=== PATIENT | male | born 1935 | race Caucasian/White ===

== ENCOUNTER 2016-04-01 18:29 | Inpatient (IN) | payer OTHER ==
[2016-04-01] MEDS ORDERED: SODIUM CHLORIDE 1,000 ML IV STA (19:19)
[2016-04-01 20:30] LABS: BASOPHIL 0.9 % (0-2.0); EOSINOPHIL 4.7 % (0-4.5); MCH 32.1 pg (25.7-33.7); MCHC 32.4 g/dl (32.0-35.9); MEAN CELL VOLUME 98.9 fl (80-96); MEAN PLT VOLUME 8.7 fl (7.5-11.1); NEUTROPHILS 61.2 % (42.8-82.8); PLATELET COUNT 286 K/MM3 (134-434); RDW 18.9 % (11.9-15.9); WHITE BLOOD COUNT 6.9 K/mm3 (4.0-10.0)
[2016-04-01] MEDS ORDERED: metroNIDAZOLE 250 MG TABLET PO ONE (20:56)
[2016-04-01 21:01] LABS: ALBUMIN 2.6 g/dl (3.4-5.0); ALK PHOS 84 U/L (45-117); ANION GAP 11 (8-16); BILIRUBIN,TOTAL 0.2 mg/dL (0.2-1.0); CALCIUM 8.8 mg/dL (8.5-10.1); CO2 17 mmol/L (21-32); CREATININE 0.9 mg/dL (0.7-1.3); GLUCOSE,RANDOM 121 mg/dL (74-106); MAGNESIUM 1.9 mg/dL (1.8-2.4); SGOT/AST 9 U/L (15-37); SGPT/ALT 14 U/L (12-78); TOT PROT 7.9 g/dl (6.4-8.2)
[2016-04-01] MEDS ORDERED: metroNIDAZOLE 250 MG TABLET ONE (21:28)
--- NOTE | 2016-04-02 01:06 | PDOC ---
History of Present Illness - General History Source: Patient, [facility] Exam Limitations: No Limitations - History of Present Illness Initial Comments: 04/02/16 01:49 The patient is an 80 year old male, with a significant past medical history of HTN, hyperlipidemia, diabetes and [place], who presents to the emergency department sent via EMS from [facility] with diarrhea and abdominal pain. Patient is sent for evaluation to rule out C.diff. The patient denies any shortness of breath or chest pain. The patient denies any fever, chills, nausea or vomiting. Allergies: Chlorpromazine HCl Past Surgical History: Umbilical Hernia Repair Social History: Former smoker (quit many years ago). Denies alcohol or drug use. PCP: Dr. Sutherland <Lindsay Krishnan - Last Filed: 04/02/16 01:49> <Stef Rodriguez - Last Filed: 04/02/16 02:59> - General Chief Complaint: Revisit, Lab Variance Stated Complaint: ABNORMAL LABS Time Seen by Provider: 04/01/16 18:57 Past History <Lindsay Krishnan - Last Filed: 04/02/16 01:49> - Past Medical History Anemia: No Asthma: No Cancer: No Cardiac Disorders: Yes ([place]) CVA: No COPD: No CHF: No DVT: No Dementia: No Diabetes: Yes GI Disorders: No Disorders: No HTN: Yes Hypercholesterolemia: Yes Liver Disease: No Seizures: No Thyroid Disease: No - Surgical History Abdominal Surgery: Yes (umbilical hernia) Appendectomy: No Cardiac Surgery: No Cholecystectomy: No Lung Surgery: No Neurologic Surgery: No Orthopedic Surgery: No - Psycho/Social/Smoking Cessation Hx Anxiety: No Suicidal Ideation: No Smoking Status: Yes Smoking History: Former smoker Have you smoked in the past 12 months: No Number of Cigarettes Smoked Daily: 0 If you are a former smoker, when did you quit?: many yrs ago Information on smoking cessation initiated: No Hx Alcohol Use: No Drug/Substance Use Hx: No Substance Use Type: None Hx Substance Use Treatment: No <Stef Rodriguez - Last Filed: 04/02/16 02:59> - Past Medical History Allergies/Adverse Reactions: Allergies Allergy/AdvReac Type Severity Reaction Status Date / Time chlorpromazine HCl Allergy Verified 04/01/16 19:13 [From Thorazine] Home Medications: Ambulatory Orders Acetaminophen [Tylenol] 650 mg PO Q6H PRN 02/10/12 Aspirin [ASA] 81 mg PO DAILY 02/10/12 Clotrimazole [Athlete's Foot] 30 gm TP BID PRN #0 cream..g. 02/14/12 Furosemide [Lasix -] 20 mg PO DAILY #0 tablet 02/14/12 Glipizide [Glucotrol] 5 mg PO BID #0 tablet 02/14/12 Clobetasol Propionate/Emoll [Temovate Emollient 0.05% Crm] 30 gm TP 11/27/12 Review of Systems - Review of Systems Able to Perform ROS?: Yes Comments:: 04/02/16 01:39 CONSTITUTIONAL: No fever, no chills, no fatigue EYES: No visual changes ENT: No ear pain, no sore throat CARDIOVASCULAR: No chest pain, no palpitations RESPIRATORY: No cough, no SOB GI: +Abdominal pain, diarrhea. No nausea, no vomiting, no constipation GENITOURINARY: No dysuria, no frequency, no hematuria MUSKULOSKELETAL: No back pain, no joint pain, no myalgias SKIN: No rash NEURO: No headache <Lindsay Krishnan - Last Filed: 04/02/16 01:49> *Physical Exam - Vital Signs Last Vital Signs Temp Pulse Resp BP Pulse Ox 97.5 F L 64 16 101/60 94 L 04/01/16 19:14 04/02/16 00:05 04/02/16 00:05 04/02/16 00:05 04/02/16 00:05 <Lindsay Krishnan - Last Filed: 04/02/16 01:49> - Vital Signs Last Vital Signs Temp Pulse Resp BP Pulse Ox 97.5 F L 64 16 101/60 94 L 04/01/16 19:14 04/02/16 00:05 04/02/16 00:05 04/02/16 00:05 04/02/16 00:05 - Physical Exam Comments: 04/02/16 02:51 EXAMINATION CONSTITUTIONAL: Awake and alert; frail-appearing, in no apparent distress HEAD: Normocephalic; atraumatic EYES: PERRL; EOM intact; no scleral icterus ENMT: External appears normal; mucous membranes are dry, tongue is coated NECK: Supple; non-tender; no cervical lymphadenopathy CARD: Normal S1, S2; 2/6 se murmurs, no rubs, or gallops RESP: Normal chest excursion with respiration; breath sounds clear and equal bilaterally; no wheezes, rhonchi, or rales ABD: Soft, non-distended; non-tender; no palpable organomegaly, no palpable hernias EXT: Normal ROM in all four extremities; non-tender to palpation; distal pulses intact SKIN: Warm, dry, no rash NEURO: <Stef Rodriguez - Last Filed: 04/02/16 02:59> Heart Score/ECG Review #1 ECG reviewed & interpreted by me at: 19:04 (Vent Rate: 55 bpm. Sinus bradycardia with sinus arrhythmia with occasional premature ventricular complexes. Nonspecific ST and T wave abnormality. ) <Lindsay Krishnan - Last Filed: 04/02/16 01:49> ED Treatment Course - LABORATORY CBC & Chemistry Diagram: 04/01/16 19:21 04/01/16 19:21 - ADDITIONAL ORDERS Additional order review: Laboratory Results 04/01/16 04/01/16 04/01/16 22:41 19:38 19:21 Sodium Potassium Chloride Carbon Dioxide Anion Gap BUN Creatinine Creat Clearance w eGFR Random Glucose Lactic Acid Calcium Magnesium Total Bilirubin AST ALT Alkaline Phosphatase Total Protein Albumin Stool Occult Blood Negative Blood Type A POSITIVE A POSITIVE Antibody Screen Negative 04/01/16 04/01/16 19:21 19:21 Sodium 144 Potassium 4.2 Chloride 116 H D Carbon Dioxide 17 L D Anion Gap 11 BUN 49 H D Creatinine 0.9 Creat Clearance w eGFR > 60 Random Glucose 121 H D Lactic Acid 1.594 Calcium 8.8 Magnesium 1.9 Total Bilirubin 0.2 D AST 9 L D ALT 14 D Alkaline Phosphatase 84 Total Protein 7.9 Albumin 2.6 L Stool Occult Blood Blood Type Antibody Screen 04/01/16 19:21 RBC 3.05 L D MCV 98.9 H MCHC 32.4 RDW 18.9 H D MPV 8.7 Neutrophils % 61.2 Lymphocytes % 22.3 Monocytes % 10.9 H Eosinophils % 4.7 H Basophils % 0.9 - Medications Given in the ED: ED Medications Discontinued Medications Generic Name Dose Route Start Last Admin Trade Name Freq PRN Reason Stop Dose Admin Sodium Chloride 1,000 mls @ 1,000 mls/hr 04/01/16 19:19 04/01/16 20:49 Normal Saline - IV 04/01/16 20:18 1,000 mls/hr ASDIR STA Administration Metronidazole 500 mg 04/01/16 20:56 04/01/16 21:41 Flagyl - PO 04/01/16 20:57 500 mg ONCE ONE Administration <Lindsay Krishnan - Last Filed: 04/02/16 01:49> - LABORATORY CBC & Chemistry Diagram: 04/01/16 19:21 04/01/16 19:21 - ADDITIONAL ORDERS Additional order review: Laboratory Results 04/01/16 04/01/16 04/01/16 22:41 19:38 19:21 Sodium Potassium Chloride Carbon Dioxide Anion Gap BUN Creatinine Creat Clearance w eGFR Random Glucose Lactic Acid Calcium Magnesium Total Bilirubin AST ALT Alkaline Phosphatase Total Protein Albumin Stool Occult Blood Negative Blood Type A POSITIVE A POSITIVE Antibody Screen Negative 04/01/16 04/01/16 19:21 19:21 Sodium 144 Potassium 4.2 Chloride 116 H D Carbon Dioxide 17 L D Anion Gap 11 BUN 49 H D Creatinine 0.9 Creat Clearance w eGFR > 60 Random Glucose 121 H D Lactic Acid 1.594 Calcium 8.8 Magnesium 1.9 Total Bilirubin 0.2 D AST 9 L D ALT 14 D Alkaline Phosphatase 84 Total Protein 7.9 Albumin 2.6 L Stool Occult Blood Blood Type Antibody Screen 04/01/16 19:21 RBC 3.05 L D MCV 98.9 H MCHC 32.4 RDW 18.9 H D MPV 8.7 Neutrophils % 61.2 Lymphocytes % 22.3 Monocytes % 10.9 H Eosinophils % 4.7 H Basophils % 0.9 - RADIOLOGY Radiology Studies Ordered: Category Date Time Status CHEST X-RAY PORTABLE* [RAD] Stat Radiology 04/01/16 20:31 Completed - Medications Given in the ED: ED Medications Discontinued Medications Generic Name Dose Route Start Last Admin Trade Name Freq PRN Reason Stop Dose Admin Sodium Chloride 1,000 mls @ 1,000 mls/hr 04/01/16 19:19 04/01/16 20:49 Normal Saline - IV 04/01/16 20:18 1,000 mls/hr ASDIR STA Administration Metronidazole 500 mg 04/01/16 20:56 04/01/16 21:41 Flagyl - PO 04/01/16 20:57 500 mg ONCE ONE Administration <Stef Rodriguez - Last Filed: 04/02/16 02:59> Medical Decision Making - Medical Decision Making 04/02/16 01:33 EXAM: RAD/CHEST X-RAY PORTABLE Reviewed By: Dr. Clif Gonzalez IMPRESSION: No acute disease. Called Dr. Viral Meza at at 00:17. Referred to answering service, awaiting callback. Dr. Meza returned call at 00:20. Case discussed. <Lindsay Krishnan - Last Filed: 04/02/16 01:49> - Medical Decision Making 04/02/16 02:57 Patient is a frail-appearing 80-year-old male with multiple comorbidities referred from [facility] for intractable diarrhea and dehydration. In the ER, patient is afebrile, frail-appearing, with numerous episodes of foul-smelling nonbloody diarrhea. CBC reveals no evidence of leukocytosis or significant anemia. CMP is remarkable for elevated BUN to creatinine ratio. Stool cultures are been obtained. Patient has been hydrated with normal saline. We'll administer by mouth Flagyl for suspected C. difficile. Will admit for continuous IV hydration to contact isolation. <Stef Rodriguez - Last Filed: 04/02/16 02:59> *DC/Admit/Observation/Transfer - Attestations Scribe Attestion: 04/02/16 01:32 Documentation prepared by Lindsay Krishnan, acting as medical record assistant for Stef Rodriguez MD. <Lindsay Krishnan - Last Filed: 04/02/16 01:49> - Discharge Dispostion Admit: Yes <Stef Rodriguez - Last Filed: 04/02/16 02:59> Diagnosis at time of Disposition: Dehydration Diarrhea Qualifiers: Diarrhea type: unspecified type Qualified Code(s): R19.7 - Diarrhea, unspecified - Referrals
[2016-04-02] MEDS ORDERED: ACETAMINOPHEN 325 MG TABLET (FP) PO PRN (02:30)
[2016-04-02] MEDS: DEXTROSE 5%-0.45% SALINE 1,000 ML IV SCH ×2 (03:14→22:28)
[2016-04-02] MEDS ORDERED: INSULIN SLIDING SCALE (NOVOLOG) 1 VIAL SQ SCH (07:00)
[2016-04-02 07:46] VITALS: BMI 17.5
--- NOTE | 2016-04-02 09:56 | EKG ---
Test Reason : Blood Pressure : / mmHG Vent. Rate : 050 BPM Atrial Rate : 050 BPM P-R Int : 156 ms QRS Dur : 128 ms QT Int : 460 ms P-R-T Axes : -26 013 077 degrees QTc Int : 419 ms SINUS BRADYCARDIA WITH OCCASIONAL PREMATURE VENTRICULAR COMPLEXES NON-SPECIFIC INTRA-VENTRICULAR CONDUCTION BLOCK ABNORMAL ECG WHEN COMPARED WITH ECG OF 01-APR-2016 19:04, NONSPECIFIC T WAVE ABNORMALITY NO LONGER EVIDENT IN LATERAL LEADS Confirmed by ROMERO QUIÑONES, AKIN ([id number]) on 04/02/2016 9:56:18 AM Referred By: MARILY MORELAND Confirmed By:AKIN JASSO MD
--- NOTE | 2016-04-02 10:05 | CON.CARD ---
Consult Consult Specialty:: Cardiology Referred by:: Dr. Meza Reason for Consultation:: Bradycardia - History of Present Illness Chief Complaint: diarrhea History of Present Illness: 80 year old man with a history of HTN, HLD, DM II, CAD reported h/o [place] and prior nuclear stress test here that showed infarct with LVEF 35%, unknown outpatient cardiology follow up, sent from [place] for persistent diarrhea and abdominal pain. Pt was noted to have sinus bradycardia on presentation. Pt. seen and examined today in [facility]. He is only able to provide limited history. He denies having any chest pain, sob, palpitations, lightheadedness, dizziness, syncope, or near syncope. - History Source History Provided By: Patient, Medical Record Limitations to Obtaining History: Poor Historian - Past Medical History Cardio/Vascular: Yes: CAD, CHF, HTN, Hyperlipdemia, [place] Endocrine: Yes: Diabetes Mellitus - Alcohol/Substance Use Hx Alcohol Use: No - Smoking History Smoking history: Former smoker Have you smoked in the past 12 months: No Aproximately how many cigarettes per day: 0 If you are a former smoker, when did you quit?: many yrs ago - Social History Usual Living Arrangement: Alf ADL: Support Services History of Recent Travel: No Home Medications - Allergies Allergies/Adverse Reactions: Allergies Allergy/AdvReac Type Severity Reaction Status Date / Time chlorpromazine HCl Allergy Verified 04/01/16 19:13 [From Thorazine] - Home Medications Home Medications: Ambulatory Orders Aa/Hydrolyzed Collagen, Whey [Lps Neutral Flavor Liquid] 15 grams PO BID Acetaminophen [Tylenol] 325 mg PO Q6H PRN 04/02/16 Ascorbate Calcium [Vitamin C] 500 mg PO TID 04/02/16 Aspirin [ASA -] 81 mg PO BID 04/02/16 Cyanocobalamin (Vitamin B-12) [B-12] 1,000 mcg PO DAILY 04/02/16 Docusate Sodium [Colace -] 100 mg PO DAILY PRN 04/02/16 Folic Acid 1 mg PO DAILY 04/02/16 Guaifenesin 200 mg PO Q4H PRN 04/02/16 Insulin Regular, Human [Humulin R U-500 Kwikpen] 100 units SQ ASDIR 04/02/16 Iron 325 mg PO TID 04/02/16 Menthol/Zinc Oxide [Calmoseptine Ointment] 0 gm TP DAILY 04/02/16 Metoprolol Succinate [Toprol Xl] 25 mg PO DAILY 04/02/16 Multivitamins [Tab-A-Vit -] 1 tab PO DAILY 04/02/16 Oseltamivir Phosphate [Tamiflu] 75 mg PO DAILY 04/02/16 Polyethylene Glycol 3350 [Miralax 119 gm Btl -] 17 grams PO DAILY PRN 04/02/16 Tamsulosin HCl [Flomax] 0.4 mg PO DAILY 04/02/16 Family Disease History - Family Disease History Family History: Unable to Obtain Review of Systems - Review of Systems Constitutional: reports: Malaise, Weakness. denies: No Symptoms, Chills, Diaphoresis, Fever, Lethargy, Loss of Appetite, Night Sweats, Unintentional Wgt. Loss, Other Eyes: denies: No Symptoms, Blind Spots, Blurred Vision, Double Vision, Eye Pain , Floaters, Photophobia, Recent Change in Vision, Other HENT: denies: No Symptoms, Difficult Swallowing, Ear Discharge, Ear Pain, Epistaxis, Gingival Bleeding, Hearing Loss, Mouth Swelling, Nasal Congestion, Ocular Prosthesis, Throat Pain, Toothache, Ringing in Ears, Other Neck: denies: No Symptoms, Decreased ROM, Lumps, Pain on Movement, Stiffness, Swollen Glands, Tenderness, Other Cardiovascular: denies: No Symptoms, Chest Pain, Edema, Palpitations, Shortness of Breath, Other Respiratory: denies: No Symptoms, Cough, Exercise Intolerance, Hemoptysis, Orthopnea, PND, Snoring, SOB, SOB on Exertion, Wheezing, Other Gastrointestinal: reports: Abdominal Pain, Diarrhea. denies: No Symptoms, Bloating, Constipation, Dysphagia, Indigestion, Melena, Nausea, Rectal Bleeding , Vomiting, Vomiting Blood, Other Genitourinary: denies: No Symptoms, Burning, Discharge, Dysuria, Flank Pain, Frequency, Hematuria, Incontinence, Lesions, Menses, Pain, Testicular Mass, Testicular Pain, Testicular Swelling, Urgency, Vaginal Bleeding, Other Breasts: denies: No Symptoms Reported, See HPI, Breast Implants, Discharge from Nipple, Lumps, Pain, Skin Changes, Other Musculoskeletal: denies: No Symptoms, Back Pain, Crepitus, Decreased ROM, Extremity Pain, Joint Pain, Joint Swelling, Muscle Pain, Muscle Cramps, Muscle Weakness, Other Integumentary: denies: No Symptoms, Blister, Bruising, Change in Color, Eczema, Erythema, Incision, Lesions, Lump, Pallor, Pruritis, Rash, Wound, Other Neurological: denies: No Symptoms, Change in LOC, Change in Speech, Confusion, Dizziness, Headache, Incoordination, Numbness, Parasthesia, Pre-Existing Deficit , Seizure, Syncope, Tremors, Unsteady Gait, Weakness, Other Endocrine: denies: No Symptoms, Excessive Sweating, Flushing, Increased Hunger, Increased Thirst, Intolerance to Cold, Intolerance to Heat, Unexplained Weight Gain, Unexplained Weight Loss, Other Hematology/Lymphatic: denies: No Symptoms, Easily Bruised, Excessive Bleeding, Swollen Glands, Other Psychiatric: denies: No Symptoms, Altered Sleep Pattern, Anxiety, Depression, Hallucinations, Panic, Paranoia, Suicidal, Other - Risk Factors Known Risk Factors: Yes: Age, Diabetes Mellitus, Hypercholesterolemia, Hypertension Vital Signs: Vital Signs Temperature 96 F L 04/02/16 08:39 Pulse Rate 45 L 04/02/16 08:39 Respiratory Rate 18 04/02/16 08:39 Blood Pressure 125/62 04/02/16 08:39 O2 Sat by Pulse Oximetry (%) 96 04/02/16 06:00 Constitutional: Yes: Well Nourished, No Distress, Calm Eyes: Yes: WNL, Conjunctiva Clear, EOM Intact HENT: Yes: WNL, Atraumatic, Normocephalic Neck: Yes: WNL, Supple, Trachea Midline Respiratory: Yes: Regular, Diminished. No: Rales, Rhonchi, Wheezes Gastrointestinal: Yes: Normal Bowel Sounds, Soft. No: Distention, Tenderness Renal/: Yes: WNL Cardiovascular: Yes: Bradycardia. No: Regular Rate and Rhythm, Tachycardia, Pulse Irregular, Gallop, Rub, Varicosities JVD: No Carotid Bruit: No PMI: Non-Displaced Heart Sounds: Yes: S1, S2. No: Split S2, S3, S4, Clicks, Gallop, Rub, Bruit Murmur: No: Systolic Murmur, Diastolic Murmur Musculoskeletal: Yes: Muscle Weakness Extremities: Yes: WNL Edema: No Peripheral Pulses WNL: Yes Peripheral Pulses: 2+ Left Doralis Pedis, 2+ Right Dorsalis Pedis Integumentary: Yes: WNL Neurological: Yes: Alert Psychiatric: Yes: Alert - Other Data Labs, Other Data: Laboratory Tests 04/01/16 04/01/16 04/01/16 19:21 19:21 19:21 WBC 6.9 Hgb 9.8 L D Hct 30.1 L D Plt Count 286 Sodium 144 Potassium 4.2 Chloride 116 H D Carbon Dioxide 17 L D BUN 49 H D Creatinine 0.9 Random Glucose 121 H D Lactic Acid 1.594 Calcium 8.8 Magnesium 1.9 Total Bilirubin 0.2 D AST 9 L D ALT 14 D Alkaline Phosphatase 84 Total Protein 7.9 Albumin 2.6 L ekg 1-sinus bradycardia 55bpm, pvcs, IVCD, NSST, sinus arrhythmia ekg 2-sinus bradycardia 50bpm, IVCD, PVCs Imaging - Results Chest X-ray: Report Reviewed, Image Reviewed EKG: Report Reviewed, Image Reviewed Other: Report Reviewed, Image Reviewed Problem List - Problems (1) Dehydration Code(s): E86.0 - DEHYDRATION (2) Diarrhea Code(s): R19.7 - DIARRHEA, UNSPECIFIED Qualifiers: Diarrhea type: unspecified type Qualified Code(s): R19.7 - Diarrhea, unspecified (3) Bradycardia Code(s): R00.1 - BRADYCARDIA, UNSPECIFIED (4) CAD (coronary artery disease) Code(s): I25.10 - ATHSCL HEART DISEASE OF [place] CORONARY ARTERY W/O ANG PCTRS (5) Myocardial infarct, old Code(s): I25.2 - OLD MYOCARDIAL INFARCTION (6) Ischemic cardiomyopathy Code(s): I25.5 - ISCHEMIC CARDIOMYOPATHY (7) Chronic systolic CHF (congestive heart failure) Code(s): I50.22 - CHRONIC SYSTOLIC (CONGESTIVE) HEART FAILURE (8) HTN (hypertension) Code(s): I10 - ESSENTIAL (PRIMARY) HYPERTENSION (9) HLD (hyperlipidemia) Code(s): E78.5 - HYPERLIPIDEMIA, UNSPECIFIED (10) Diabetes mellitus type 2 in nonobese Code(s): E11.9 - TYPE 2 DIABETES MELLITUS WITHOUT COMPLICATIONS Assessment/Plan 80 year old man with a history of HTN, HLD, DM II, CAD reported h/o [place] and prior nuclear stress test here that showed infarct with LVEF 35%, unknown outpatient cardiology follow up, sent from [place] for persistent diarrhea and abdominal pain. Pt was noted to have sinus bradycardia on presentation. He denies having any chest pain, sob, palpitations, lightheadedness, dizziness, syncope, or near syncope. 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
--- NOTE | 2016-04-02 10:08 | EKG ---
Test Reason : Blood Pressure : / mmHG Vent. Rate : 055 BPM Atrial Rate : 055 BPM P-R Int : 156 ms QRS Dur : 116 ms QT Int : 438 ms P-R-T Axes : 077 009 101 degrees QTc Int : 419 ms SINUS BRADYCARDIA WITH SINUS ARRHYTHMIA WITH OCCASIONAL PREMATURE VENTRICULAR COMPLEXES NONSPECIFIC ST AND T WAVE ABNORMALITY ABNORMAL ECG Confirmed by AKIN JASSO MD ([id number]) on 04/02/2016 10:08:18 AM Referred By: Confirmed By:AKIN JASSO MD
--- NOTE | 2016-04-02 10:35 | PN ---
Progress Note (short form) - Note Progress Note: ID consult dictated 80 year old man admitted from [place] with diarrhea- reports last several days no vomiting no abdominal pain no fever small volume foul smelling C diff antigen positive- would start po flagyl continue iv hydration would f/u stool studies sent also norovirus eosinophilia- screen stools for ova and parasites cachexia with anemia- r/o malignancy check tsh consider ct abd/pelvis -await speech eval to see if he can drink po contrast Problem List - Problems (1) Diarrhea Code(s): R19.7 - DIARRHEA, UNSPECIFIED Qualifiers: Diarrhea type: unspecified type Qualified Code(s): R19.7 - Diarrhea, unspecified (2) Anemia Code(s): D64.9 - ANEMIA, UNSPECIFIED
--- NOTE | 2016-04-02 10:38 | CONSULT ---
Admitting History and Physical - Primary Care Physician PCP: Viral Meza - Admission History of Present Illness: Per EMR: "History of Present Illness Initial Comments: 04/02/16 01:49 The patient is an 80 year old male, with a significant past medical history of HTN, hyperlipidemia, diabetes and [place], who presents to the emergency department sent via EMS from [facility] with diarrhea and abdominal pain. Patient is sent for evaluation to rule out C.diff. The patient denies any shortness of breath or chest pain. The patient denies any fever, chills, nausea or vomiting. Allergies: Chlorpromazine HCl Past Surgical History: Umbilical Hernia Repair Social History: Former smoker (quit many years ago). Denies alcohol or drug use. " Per nursing, swallowing evaluation placed for weight loss. Pt denies dysphagia or weight loss but reports admission "to assess my digestive tract." He reports that he is on a chopped diet because he can't wear his dentures. History Source: Patient, Medical Record Limitations to Obtaining History: No Limitations (Slow to respond but o x 3 and appropriate) - Past Medical History Cardiovascular: Yes: CAD, CHF, HTN, Hyperlipdemia, [place] Endocrine: Yes: Diabetes Mellitus - Advance Directives Advance Directives: Yes: Health Care Proxy - Smoking History Smoking history: Former smoker Have you smoked in the past 12 months: No Aproximately how many cigarettes per day: 0 If you are a former smoker, when did you quit?: many yrs ago - Alcohol/Substance Use Hx Alcohol Use: No - Social History ADL: Support Services History of Recent Travel: No History - Admission Reason For Visit: DIARRHEA DEHYDRATION - Diagnostics X-ray: Report Reviewed - General Mental Status: Alert and Oriented, Awake and Alert, Able to Follow Commands Attention: Intact (limited eye contact.) Ability to Follow Directions: Good Head/Neck Control: Fair - Hearing Hearing: Functional Hearing: Impaired Hearing Aide: No With Patient: No Speech Evaluation - Communication Primary Language: ALB[place] Communication: Yes: Within Normal Limits - Speech Production Able to Make Needs Known: Yes: WNL Intelligibility: Yes: WNL - Speech Characteristics Voice Loudness: Normal Voice Pitch: Yes: Normal Voice Phonatory-based Quality: Yes: Normal Speech Clarity: < 100% Nasal Resonance: Normal Articulation: Yes: Precise Rate of Speech: Intact (slow to respond but accurate) - Language/Verbal Expression Able to Respond to Simple Queries: Yes: WNL Able to Communicate Wants and Needs: Yes: WNL Functional Communication Status: Yes: WNL - Memory/Perception 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 Memory: Yes: WNL Short Term Memory: Yes: WNL - Swallow Evaluation/Bedside Assessment Current Nutritional Intake: NPO Oral Secretions: Yes: WFL Dentition: Yes: Edentulous Facial Symmetry at Rest: Symmetrical Facial Symmetry on Retraction: Symmetrical Facial Movement: Controlled Sensation: Normal Against Resistance Opening: Normal Against Resistance Closing: Normal Pucker Lips: Normal Smile: Normal Lingual Movement: Normal Lingual Speed of Movement: Normal Lingual Movement Strgth Against Opposition: Normal Lingual Movement Characteristics: Normal Velopharyngeal Movement: Normal Laryngeal Movement: Able to Palpate, Labored,delay initiation, Reduced Velocity Labial Seal: WFL Chewing: Impaired (unable to masticate small piece of cracker in applesauce.) Oral Prep Time: Increased A-P Transit: Impaired Timing of Swallow: Delayed Coughing/Throat Clear: No Change in Voice: No Recommendations - Speech Evaluation, Impression/Plan Impression: a x o. Slow to respond but good historian. Denies weight loss. Feels the scale is wrong. Swallow mildly delayed but functional. - Dysphagia Impressions/Plan Dysphagia Impressions: Mild Impairment, Ongoing Evaluation Recommendations: Other (RD/menu selection) - Recommendations Diet Consistency: Dysphagia Minced, 1 - 2 Soft Items (wants eggs, park.) Medication Administration: Whole with water Liquids: Thin Liquids
--- NOTE | 2016-04-02 11:30 | CONS ---
DATE OF CONSULTATION: REQUESTING PHYSICIAN: Viral Meza MD HISTORY: This is an 80-year-old man with past medical history of hypertension, hyperlipidemia, diabetes, coronary artery disease who was sent from the half-way with diarrhea, which he reports over the last several days. He denies any abdominal pain. He has no fever or chills. He has no other complaints. He has no vomiting. PAST MEDICAL HISTORY: Notable for history of hypertension, hyperlipidemia, diabetes, abdominal aortic aneurysm, thyroid disease, coronary artery disease, and dementia. PAST SURGICAL HISTORY: Notable for umbilical hernia repair. ALLERGIES: CHLORPROMAZINE. MEDICATIONS: At the half-way include Tylenol, aspirin, insulin, Flomax, MiraLAX, which has been on hold, Tamiflu, which has been prophylaxis for 2 weeks, Toprol XL, iron, folic acid, Colace, B12, aspirin, and protein supplement. FAMILY HISTORY: Not available. SOCIAL HISTORY: He is a half-way resident. He is a former smoker. There is no history of any substance use. REVIEW OF SYSTEMS: Notable for diarrhea. He denies abdominal pain, chest pain, nausea, or vomiting. PHYSICAL EXAMINATION: General: He is a weak-appearing man in no acute distress. Vital Signs: His temperature is 96, pulse 45, blood pressure 125/62, respiratory rate 18. HEENT: He is normocephalic. His eyes are anicteric. He has dry oral mucosa. Lungs: Clear to auscultation. Heart: Regular rate and rhythm. He is bradycardic. Abdomen: Soft. He has good bowel sounds. He has no rebound or guarding. Extremities: Without edema. White count is 6.9, hemoglobin 9.8, platelets 286, INR 1. He has 4.7% eosinophils. His BUN 49, creatinine 0.9. LFTs are normal. His albumin is 2.6. His urinalysis is not done. Stool occult blood is negative. Chest x-ray report is normal. There is no acute disease. In summary, this is a cachectic 80-year-old man with diarrhea. He also has anemia. He is Clostridium difficile antigen positive. In this setting, I would suggest we treat him for Clostridium difficile and start oral Flagyl. Would continue hydration. Would screen him for Norovirus. Would agree with ova and parasite studies as well given his eosinophilia. Blood cultures have been sent given the fact that he is hypothermic. There is a remote history of thyroid disease and he is not on any thyroid medication, so it would be reasonable to check his thyroid status as well. Overall with his low albumin and the fact that he is 6 feet 2 inches and only weighs 136 pounds and anemia, concerns should also be raised for possible malignancy. ELAINE RAY M.D. LUZMA/[id number]
[2016-04-02] MEDS: TAMSULOSIN HCL 0.4 MG CAP.ER.24H (FP) PO SCH (11:57)
[2016-04-02] MEDS: ASPIRIN 81 MG CHEWABLE TABLETS PO SCH (11:57)
[2016-04-02] MEDS: metroNIDAZOLE 250 MG TABLET PO SCH ×3 (11:57→22:29)
--- NOTE | 2016-04-02 13:35 | HP ---
Admitting History and Physical - Admission History of Present Illness: 80 y/o [place] of profuse diarrhea he had dry mucous membranes and low bp's no fever, lactic acid level is low - Past Medical History Cardiovascular: Yes: CAD, CHF, HTN, Hyperlipdemia, [place] Endocrine: Yes: Diabetes Mellitus - Advance Directives Advance Directives: Yes: Health Care Proxy - Smoking History Smoking history: Former smoker Have you smoked in the past 12 months: No Aproximately how many cigarettes per day: 0 If you are a former smoker, when did you quit?: many yrs ago - Alcohol/Substance Use Hx Alcohol Use: No - Social History ADL: Support Services History of Recent Travel: No Home Medications - Allergies Allergies/Adverse Reactions: Allergies Allergy/AdvReac Type Severity Reaction Status Date / Time chlorpromazine HCl Allergy Verified 04/01/16 19:13 [From Thorazine] - Home Medications Home Medications: Ambulatory Orders Aa/Hydrolyzed Collagen, Whey [Lps Neutral Flavor Liquid] 15 grams PO BID Acetaminophen [Tylenol] 325 mg PO Q6H PRN 04/02/16 Ascorbate Calcium [Vitamin C] 500 mg PO TID 04/02/16 Aspirin [ASA -] 81 mg PO BID 04/02/16 Cyanocobalamin (Vitamin B-12) [B-12] 1,000 mcg PO DAILY 04/02/16 Docusate Sodium [Colace -] 100 mg PO DAILY PRN 04/02/16 Folic Acid 1 mg PO DAILY 04/02/16 Guaifenesin 200 mg PO Q4H PRN 04/02/16 Insulin Regular, Human [Humulin R U-500 Kwikpen] 100 units SQ ASDIR 04/02/16 Iron 325 mg PO TID 04/02/16 Menthol/Zinc Oxide [Calmoseptine Ointment] 0 gm TP DAILY 04/02/16 Metoprolol Succinate [Toprol Xl] 25 mg PO DAILY 04/02/16 Multivitamins [Tab-A-Vit -] 1 tab PO DAILY 04/02/16 Oseltamivir Phosphate [Tamiflu] 75 mg PO DAILY 04/02/16 Polyethylene Glycol 3350 [Miralax 119 gm Btl -] 17 grams PO DAILY PRN 04/02/16 Tamsulosin HCl [Flomax] 0.4 mg PO DAILY 04/02/16 Physical Examination Vital Signs: Vital Signs Temperature 96 F L 04/02/16 08:39 Pulse Rate 45 L 04/02/16 08:39 Respiratory Rate 18 04/02/16 08:39 Blood Pressure 125/62 04/02/16 08:39 O2 Sat by Pulse Oximetry (%) 96 04/02/16 06:00 Constitutional: Yes: Cachectic Eyes: Yes: WNL, Conjunctiva Clear, EOM Intact HENT: Yes: WNL, Atraumatic, Normocephalic Neck: Yes: WNL, Supple, Trachea Midline Cardiovascular: Yes: WNL, Regular Rate and Rhythm Respiratory: Yes: WNL, Regular, CTA Bilaterally Gastrointestinal: Yes: WNL, Normal Bowel Sounds ...Rectal Exam: Yes: Deferred Breast(s): Yes: WNL Edema: RLE: 1+ Peripheral Pulses WNL: Yes Integumentary: Yes: Venous Stasis Changes Neurological: Yes: Alert, Oriented Assessment/Plan diarrhea r/o c diff hypotension initially being resuscitated with ivf prerenal azotemia continue ivf id consult speech eval for the appropriate diet consistency obtain labs for electrolyte monitoring
[2016-04-02] MEDS ORDERED: SODIUM CHLORIDE 500 ML IV ONE (15:45)
[2016-04-03] MEDS: metroNIDAZOLE 250 MG TABLET PO SCH ×3 (06:53→21:38)
[2016-04-03 08:28] LABS: MCH 32.7 pg (25.7-33.7); MCHC 33.2 g/dl (32.0-35.9); MEAN CELL VOLUME 98.5 fl (80-96); MEAN PLT VOLUME 8.2 fl (7.5-11.1); PLATELET COUNT 214 K/MM3 (134-434); RDW 18.9 % (11.9-15.9); WHITE BLOOD COUNT 4.7 K/mm3 (4.0-10.0)
[2016-04-03 08:57] LABS: ALBUMIN 2.2 g/dl (3.4-5.0); ANION GAP 10 (8-16); BILIRUBIN,TOTAL 0.3 mg/dL (0.2-1.0); CALCIUM 8.4 mg/dL (8.5-10.1); CO2 15 mmol/L (21-32); CREATININE 0.7 mg/dL (0.7-1.3); GLUCOSE,RANDOM 101 mg/dL (74-106); SGOT/AST 6 U/L (15-37); SGPT/ALT 9 U/L (12-78)
[2016-04-03 08:58] LABS: ALK PHOS 69 U/L (45-117); TOT PROT 6.7 g/dl (6.4-8.2)
[2016-04-03] MEDS: ASPIRIN 81 MG CHEWABLE TABLETS PO SCH (09:09)
[2016-04-03] MEDS: TAMSULOSIN HCL 0.4 MG CAP.ER.24H (FP) PO SCH (09:09)
--- NOTE | 2016-04-03 09:10 | PN ---
Progress Note, Physician Chief Complaint: resting comfortably Denies chest pain, dizziness Holter in progress - Current Medication List Current Medications: Active Medications Acetaminophen (Tylenol -) 325 mg PO Q6H PRN PRN Reason: FEVER OR PAIN Aspirin (Asa -) 81 mg PO DAILY [facility] Last Admin: 04/03/16 09:09 Dose: 81 mg Dextrose/Sodium Chloride (D5-1/2ns -) 1,000 mls @ 100 mls/hr IV ASDIR [facility] Last Admin: 04/02/16 22:28 Dose: 100 mls/hr Insulin Aspart (Novolog Vial Sliding Scale -) 1 vial SQ ACHS [facility] Metronidazole (Flagyl -) 500 mg PO TID [facility] Last Admin: 04/03/16 06:53 Dose: 500 mg Tamsulosin HCl (Flomax -) 0.4 mg PO DAILY@0830 [facility] Last Admin: 04/03/16 09:09 Dose: 0.4 mg - Objective Vital Signs: Vital Signs Temperature 97.5 F L 04/03/16 06:00 Pulse Rate 51 L 04/03/16 06:00 Respiratory Rate 20 04/03/16 06:00 Blood Pressure 110/65 04/03/16 06:00 O2 Sat by Pulse Oximetry (%) 96 04/02/16 21:00 Constitutional: Yes: Calm Cardiovascular: Yes: Regular Rate and Rhythm Respiratory: Yes: Other (clear anteriorly without wheezing or rales) Edema: No Labs: CBC, BMP 04/03/16 08:10 Laboratory Tests 04/03/16 04/03/16 08:10 08:10 WBC 4.7 D Hgb 8.6 L D Plt Count 214 D Creatinine Pending Assessment/Plan Assessment/Plan 80 year old man with a history of HTN, HLD, DM II, CAD reported h/o [place] and prior 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 Pt was noted to have sinus bradycardia on presentation. He denies having any chest pain, sob, palpitations, lightheadedness, dizziness, syncope, or near syncope. 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
[2016-04-03] MEDS: DEXTROSE 5%-0.45% SALINE 1,000 ML IV SCH (12:32)
[2016-04-03 13:36] LABS: THYROID STIMULATING HORMONE 2.16 uIU/ml (0.358-3.74)
--- NOTE | 2016-04-03 14:05 | PN ---
Progress Note (short form) - Note Progress Note: speech eval ID and Cardiol f/u appreciated BMs less liquid "pasty" second BM so far today normal anion gap met acidosis 2/2 gi bicarb losses bradycardia may be 2/2 long acting metoprolol [place] was on in [place] will wait and see if HR picks up with time anemia noted may be dilutional normocytic with high RDW suggestive of different populations of RBCs will order anemia w/u Current Medications Acetaminophen (Tylenol -) 325 mg PO Q6H PRN PRN Reason: FEVER OR PAIN Aspirin (Asa -) 81 mg PO DAILY [facility] Last Admin: 04/03/16 09:09 Dose: 81 mg Dextrose/Sodium Chloride (D5-1/2ns -) 1,000 mls @ 100 mls/hr IV ASDIR [facility] Last Admin: 04/03/16 12:32 Dose: 100 mls/hr Insulin Aspart (Novolog Vial Sliding Scale -) 1 vial SQ ACHS [facility] Metronidazole (Flagyl -) 500 mg PO TID [facility] Last Admin: 04/03/16 13:24 Dose: 500 mg Tamsulosin HCl (Flomax -) 0.4 mg PO DAILY@0830 [facility] Last Admin: 04/03/16 09:09 Dose: 0.4 mg Last Vital Signs Temp Pulse Resp BP Pulse Ox 97.4 F L 61 17 110/58 96 04/03/16 13:24 04/03/16 13:24 04/03/16 13:24 04/03/16 10:00 04/02/16 21:00 CBC, BMP 04/03/16 08:10 04/03/16 08:10
[2016-04-04] MEDS: DEXTROSE 5%-0.45% SALINE 1,000 ML IV SCH ×2 (02:03→19:35)
[2016-04-04] MEDS: metroNIDAZOLE 250 MG TABLET PO SCH ×3 (06:03→21:10)
--- NOTE | 2016-04-04 09:29 | HOL ---
Hook-up date: 2016-04-02 11:25:00 Duration: 22:59:00 Test Indications: BRADYCARDIA Medications: 16155 QRS complexes 6336 Ventricular ectopics which represent 8 % of total QRS comp. 95 Supraventricular ectopics which represent <1 % of total QRS comp. * Paced QRS complexs which represent % of total QRS comp. 2 % of Time Classified as Noise VENTRICULAR ECTOPY 6041 Isolated 1449 Bigeminal Cycles 129 Couplets 8 Runs 26 Beats in Runs 5 Beats LONGEST at 78 BPM at 06:26:44 2016-04-03 3 Beats FASTEST at 123 BPM at 18:36:51 2016-04-02 SUPRAVENTRICULAR ECTOPY 88 Isolated 3 Couplets 0 Runs 0 Beats in Runs * Beats LONGEST at * BPM at :: -- * Beats FASTEST at * BPM at :: -- HEART RATES 39 MIN at 14:45:22 2016-04-02 52 AVG 88 MAX at 20:16:03 2016-04-02 LONGEST RR 1.944 secs at 06:09:14 2016-04-03 The underlying rhtyhm was sinus bradycardia with an average rate of 52bpm. The minumum rate was 39bpm and the maxiumum 88bpm. There were no pauses > 3 seconds. Frequent VPCs, occasional couplets and short periods of ventricular bigeminy. Rare APCS, some with aberrant conduction. No diary entries. Confirmed by AKIN JASSO MD ([id number]) on 04/04/2016 9:28:22 AM Referred By: Eunice MORELAND Overread By: AKIN JASSO MD
[2016-04-04] MEDS: TAMSULOSIN HCL 0.4 MG CAP.ER.24H (FP) PO SCH (09:39)
[2016-04-04] MEDS: ASPIRIN 81 MG CHEWABLE TABLETS PO SCH (09:39)
--- NOTE | 2016-04-04 09:58 | PN ---
Progress Note, Physician Chief Complaint: alert and wants to go home Holter: Sinus tashia, rare APCs with aberrancy. Frequent VPCs, occasional V couplets and rare periods Ventricular bigeminy No pauses > 3 seconds. Pauses post VPC < 2 seconds (compensatory) - Current Medication List Current Medications: Active Medications Acetaminophen (Tylenol -) 325 mg PO Q6H PRN PRN Reason: FEVER OR PAIN Aspirin (Asa -) 81 mg PO DAILY [facility] Last Admin: 04/04/16 09:39 Dose: 81 mg Dextrose/Sodium Chloride (D5-1/2ns -) 1,000 mls @ 100 mls/hr IV ASDIR [facility] Last Admin: 04/04/16 02:03 Dose: 100 mls/hr Metronidazole (Flagyl -) 500 mg PO TID [facility] Last Admin: 04/04/16 06:03 Dose: 500 mg Tamsulosin HCl (Flomax -) 0.4 mg PO DAILY@0830 [facility] Last Admin: 04/04/16 09:39 Dose: 0.4 mg - Objective Vital Signs: Vital Signs Temperature 98.0 F 04/04/16 06:00 Pulse Rate 55 L 04/04/16 06:00 Respiratory Rate 18 04/04/16 06:00 Blood Pressure 101/64 04/04/16 06:00 O2 Sat by Pulse Oximetry (%) 98 04/03/16 21:00 Constitutional: Yes: No Distress Cardiovascular: Yes: Regular Rate and Rhythm Respiratory: Yes: CTA Bilaterally Edema: No Labs: CBC, BMP 04/03/16 08:10 04/03/16 08:10 Laboratory Tests 04/03/16 08:10 TSH 2.16 Assessment/Plan Assessment/Plan 80 year old man with a history of HTN, HLD, DM II, CAD reported h/o CT and prior nuclear stress test here that showed 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 Pt was noted to have sinus bradycardia on presentation. He denies having any chest pain, sob, palpitations, lightheadedness, dizziness, syncope, or near syncope. Bradycardia-sinus with HR's 50s -pt not reported on AV ytler blockers -denies any symptoms of bradycardia -may be related to vasovagal response from diarrhea -avoid AV tyler blockers -Holter as above: no sig pauses. No further work up planned at this time.
--- NOTE | 2016-04-04 11:39 | PN ---
Progress Note (short form) - Note Progress Note: doing well one pasty stool today Vital Signs Period Temp Pulse Resp BP Sys/Martino Pulse Ox Last 24 Hr 97.4 F-98.2 F 55-68 17-20 101-120/64-68 98 cor-rrr lungs clear abd soft,nt ext venous stasis changes CBC, BMP 04/03/16 08:10 04/03/16 08:10 Microbiology 04/01/16 22:41 Blood - Peripheral Venous Blood Culture - Preliminary NO GROWTH OBTAINED AFTER 48 HOURS, INCUBATION TO CONTINUE FOR 3 DAYS. 04/01/16 19:10 Blood - Peripheral Venous Blood Culture - Preliminary NO GROWTH OBTAINED AFTER 48 HOURS, INCUBATION TO CONTINUE FOR 3 DAYS. 04/01/16 20:50 Colon Fluid Salmonella/Shigella Culture - Preliminary NO ENTERIC PATHOGENS, 24 HOURS, ON PRIMARY PLATES 04/01/16 20:50 Colon Fluid Yersinia Culture - Preliminary NO ENTERIC PATHOGENS, 24 HOURS, ON PRIMARY PLATES 04/01/16 20:50 Colon Fluid Vibrio Culture - Preliminary NO ENTERIC PATHOGENS, 24 HOURS, ON PRIMARY PLATES 04/01/16 20:50 Colon Fluid Escherichia coli 0157 Culture - Preliminary NO ENTERIC PATHOGENS, 24 HOURS, ON PRIMARY PLATES 04/02/16 11:55 Stool Norovirus GI - Preliminary 04/02/16 11:55 Stool Norovirus GII - Preliminary 04/01/16 20:50 Stool Clostridium difficile Antigen (VICTOR M) - Final 04/01/16 20:50 Stool Clostridium difficile Toxin Assay - Final a/p diarrhea- cdiff antigen antigen positive- improving on flagyl , would continue anemia/cachexia- ct scan abd/pelvis pending iron studies pending Problem List - Problems (1) Diarrhea Code(s): R19.7 - DIARRHEA, UNSPECIFIED Qualifiers: Diarrhea type: unspecified type Qualified Code(s): R19.7 - Diarrhea, unspecified (2) Anemia Code(s): D64.9 - ANEMIA, UNSPECIFIED
[2016-04-04 13:41] LABS: FERRITIN 231.646 ng/ml (16.4-293.9)
--- NOTE | 2016-04-04 19:51 | PN ---
Progress Note (short form) - Note Progress Note: wants to go back to [place] no diarrhea speech eval ID and Cardiol f/u appreciated BMs less liquid "pasty" second BM so far today normal anion gap met acidosis 2/2 gi bicarb losses bradycardia may be 2/2 long acting metoprolol he was on in [place] will wait and see if HR picks up with time anemia noted may be dilutional normocytic with high RDW suggestive of different populations of RBCs will order anemia w/u Current Medications Acetaminophen (Tylenol -) 325 mg PO Q6H PRN PRN Reason: FEVER OR PAIN Aspirin (Asa -) 81 mg PO DAILY [facility] Last Admin: 04/04/16 09:39 Dose: 81 mg Dextrose/Sodium Chloride (D5-1/2ns -) 1,000 mls @ 100 mls/hr IV ASDIR [facility] Last Admin: 04/04/16 02:03 Dose: 100 mls/hr Metronidazole (Flagyl -) 500 mg PO TID [facility] Last Admin: 04/04/16 14:33 Dose: 500 mg Tamsulosin HCl (Flomax -) 0.4 mg PO DAILY@0830 [facility] Last Admin: 04/04/16 09:39 Dose: 0.4 mg Last Vital Signs Temp Pulse Resp BP Pulse Ox 97.3 F L 54 L 20 91/56 98 04/04/16 18:00 04/04/16 18:00 04/04/16 18:00 04/04/16 18:00 04/03/16 21:00 CBC, BMP 04/03/16 08:10 04/03/16 08:10
[2016-04-05 06:06] LABS: SERUM IRON 43 ug/dL (38-169); TOTAL IRON BINDING CAPACITY 174 ug/dL (250-450); UIBC 131 ug/dL (111-343)
[2016-04-05 06:09] LABS: MCH 32.7 pg (25.7-33.7); MCHC 33.1 g/dl (32.0-35.9); MEAN CELL VOLUME 98.8 fl (80-96); MEAN PLT VOLUME 8.4 fl (7.5-11.1); PLATELET COUNT 201 K/MM3 (134-434); RDW 18.8 % (11.9-15.9); WHITE BLOOD COUNT 5.4 K/mm3 (4.0-10.0)
[2016-04-05] MEDS: metroNIDAZOLE 250 MG TABLET PO SCH ×3 (06:29→21:51)
[2016-04-05] MEDS: DEXTROSE 5%-0.45% SALINE 1,000 ML IV SCH ×2 (06:29→19:35)
[2016-04-05 07:21] LABS: ALBUMIN 2.2 g/dl (3.4-5.0); ANION GAP 9 (8-16); CALCIUM 8.5 mg/dL (8.5-10.1); CO2 16 mmol/L (21-32); GLUCOSE,RANDOM 97 mg/dL (74-106)
[2016-04-05 07:26] LABS: ALK PHOS 63 U/L (45-117); BILIRUBIN,TOTAL 0.3 mg/dL (0.2-1.0); CREATININE 0.7 mg/dL (0.7-1.3); SGOT/AST 9 U/L (15-37); SGPT/ALT 11 U/L (12-78); TOT PROT 6.6 g/dl (6.4-8.2)
[2016-04-05] MEDS: TAMSULOSIN HCL 0.4 MG CAP.ER.24H (FP) PO SCH (08:23)
[2016-04-05] MEDS: ASPIRIN 81 MG CHEWABLE TABLETS PO SCH (09:09)
--- NOTE | 2016-04-05 10:00 | PN ---
Progress Note (short form) - Note Progress Note: doing well no diarrhea no abdominal pain Vital Signs Period Temp Pulse Resp BP Sys/Martino Pulse Ox Last 24 Hr 97.3 F-98.0 F 52-60 17-20 91-105/40-62 96 cor-rrr lungs clear abd soft,nt ext no edema CBC, BMP 04/05/16 05:45 04/05/16 05:45 Microbiology 04/01/16 22:41 Blood - Peripheral Venous Blood Culture - Preliminary NO GROWTH OBTAINED AFTER 72 HOURS, INCUBATION TO CONTINUE FOR 2 DAYS. 04/01/16 19:10 Blood - Peripheral Venous Blood Culture - Preliminary NO GROWTH OBTAINED AFTER 72 HOURS, INCUBATION TO CONTINUE FOR 2 DAYS. 04/01/16 20:50 Colon Fluid Salmonella/Shigella Culture - Final NO GROWTH OF SALMONELLA OR SHIGELLA SPECIES OBTAINED 04/01/16 20:50 Colon Fluid Campylobacter Culture - Final NO GROWTH OF CAMPYLOBACTER SPECIES OBTAINED 04/01/16 20:50 Colon Fluid Yersinia Culture - Final NO GROWTH OF YERSINIA SPECIES OBTAINED 04/01/16 20:50 Colon Fluid Vibrio Culture - Final NO GROWTH OF VIBRIO SPECIES OBTAINED 04/01/16 20:50 Colon Fluid Escherichia coli 0157 Culture - Final NO GROWTH OF E COLI 0157 OBTAINED 04/02/16 11:55 Stool Norovirus GI - Preliminary 04/02/16 11:55 Stool Norovirus GII - Preliminary 04/01/16 20:50 Stool Clostridium difficile Antigen (VICTOR M) - Final 04/01/16 20:50 Stool Clostridium difficile Toxin Assay - Final a/p diarrhea- cdiff antigen antigen positive- improving on flagyl , would continue for total 14 days- resolved anemia/cachexia- ct scan abd/plevis unremarkable iron studies pending please call back if needed Problem List - Problems (1) Diarrhea Code(s): R19.7 - DIARRHEA, UNSPECIFIED Qualifiers: Diarrhea type: unspecified type Qualified Code(s): R19.7 - Diarrhea, unspecified (2) Anemia Code(s): D64.9 - ANEMIA, UNSPECIFIED
--- NOTE | 2016-04-05 12:51 | PN ---
Progress Note, [employer] - Note Progress Note: Selected Entries 04/02/16 04/02/16 04/03/16 14:43 21:30 13:24 Breakfast 0 75% Lunch 25% 75% Supper 25% Temperature 04/03/16 04/03/16 04/03/16 18:00 21:43 22:00 Breakfast 75% 75% 75% Lunch 75% 75% 75% Supper 75% 75% 75% Temperature 04/04/16 04/04/16 04/04/16 06:00 13:48 17:27 Breakfast 75% 75% Lunch 50% 50% Supper 75% Temperature 98.0 F 97.3 F L 04/04/16 04/04/16 04/04/16 18:00 19:13 22:00 Breakfast 75% 75% 75% Lunch 50% 50% 50% Supper 75% 75% 75% Temperature 97.3 F L 97.3 F L 98.0 F 04/05/16 04/05/16 04/05/16 02:00 09:45 11:53 Breakfast 75% Lunch 75% Supper Temperature 97.7 F 97.4 F L On chopped and thin liquid. Tolerating diet. CT abd noted.
--- NOTE | 2016-04-05 19:57 | PN ---
Progress Note (short form) - Note Progress Note: better no loose stool Current Medications Acetaminophen (Tylenol -) 325 mg PO Q6H PRN PRN Reason: FEVER OR PAIN Amino Acids (Prostat Sugar-Free Packet -) 30 ml PO BID@0800,1730 [facility] Aspirin (Asa -) 81 mg PO DAILY [facility] Last Admin: 04/05/16 09:09 Dose: 81 mg Dextrose/Sodium Chloride (D5-1/2ns -) 1,000 mls @ 100 mls/hr IV ASDIR [facility] Last Admin: 04/05/16 06:29 Dose: 100 mls/hr Metronidazole (Flagyl -) 500 mg PO TID [facility] Last Admin: 04/05/16 14:25 Dose: 500 mg Tamsulosin HCl (Flomax -) 0.4 mg PO DAILY@0830 [facility] Last Admin: 04/05/16 08:23 Dose: 0.4 mg Last Vital Signs Temp Pulse Resp BP Pulse Ox 97.6 F 77 20 102/49 96 04/05/16 18:47 04/05/16 18:47 04/05/16 18:47 04/05/16 18:47 04/04/16 21:00 CBC, BMP 04/05/16 05:45 04/05/16 05:45 [place] to go back to [place] no [place] speech eval ID and Cardiol f/u appreciated BMs less liquid "pasty" second BM so far today normal anion gap met acidosis 2/2 gi bicarb losses improving -severe protein calorie malnutrition with dehydration -acute kidney failure with dehydration 2/2 diarrhea bradycardia may be 2/2 long acting metoprolol he was on in [place] will wait and see if HR picks up with time anemia noted may be dilutional normocytic with high RDW suggestive of different populations of RBCs will order anemia w/u
--- NOTE | 2016-04-05 20:04 | CON.GI ---
Consult Consult Specialty:: gastroenterology Referred by:: Dr Viral Meza - History of Present Illness History of Present Illness: 80 y/o male with PMH of CAD, EF of 35 percent was admitted because of abdominal pain and diarrhea secondary C.diff colitis. On routine labs he was noted to be anemiac. Gusiac is negative. - Past Medical History Cardio/Vascular: Yes: CAD, CHF, HTN, Hyperlipdemia, [place] Endocrine: Yes: Diabetes Mellitus - Alcohol/Substance Use Hx Alcohol Use: No - Smoking History Smoking history: Former smoker Have you smoked in the past 12 months: No Aproximately how many cigarettes per day: 0 If you are a former smoker, when did you quit?: many yrs ago - Social History Usual Living Arrangement: Longterm ADL: Support Services History of Recent Travel: No Home Medications - Allergies Allergies/Adverse Reactions: Allergies Allergy/AdvReac Type Severity Reaction Status Date / Time chlorpromazine HCl Allergy Verified 04/01/16 19:13 [From Thorazine] - Home Medications Home Medications: Ambulatory Orders Aa/Hydrolyzed Collagen, Whey [Lps Neutral Flavor Liquid] 15 grams PO BID Acetaminophen [Tylenol] 325 mg PO Q6H PRN 04/02/16 Ascorbate Calcium [Vitamin C] 500 mg PO TID 04/02/16 Aspirin [ASA -] 81 mg PO BID 04/02/16 Cyanocobalamin (Vitamin B-12) [B-12] 1,000 mcg PO DAILY 04/02/16 Docusate Sodium [Colace -] 100 mg PO DAILY PRN 04/02/16 Folic Acid 1 mg PO DAILY 04/02/16 Guaifenesin 200 mg PO Q4H PRN 04/02/16 Insulin Regular, Human [Humulin R U-500 Kwikpen] 100 units SQ ASDIR 04/02/16 Iron 325 mg PO TID 04/02/16 Menthol/Zinc Oxide [Calmoseptine Ointment] 0 gm TP DAILY 04/02/16 Metoprolol Succinate [Toprol Xl] 25 mg PO DAILY 04/02/16 Multivitamins [Tab-A-Vit -] 1 tab PO DAILY 04/02/16 Oseltamivir Phosphate [Tamiflu] 75 mg PO DAILY 04/02/16 Polyethylene Glycol 3350 [Miralax 119 gm Btl -] 17 grams PO DAILY PRN 04/02/16 Tamsulosin HCl [Flomax] 0.4 mg PO DAILY 04/02/16 Physical Exam-GI Vital Signs: Vital Signs Temperature 97.6 F 04/05/16 18:47 Pulse Rate 77 04/05/16 18:47 Respiratory Rate 20 04/05/16 18:47 Blood Pressure 102/49 04/05/16 18:47 O2 Sat by Pulse Oximetry (%) 96 04/04/16 21:00 Constitutional: Yes: Well Nourished Eyes: Yes: Conjunctiva Clear HENT: Yes: Atraumatic Neck: Yes: Trachea Midline Cardiovascular: Yes: Regular Rate and Rhythm Respiratory: Yes: CTA Bilaterally ...Palpate: Yes: Soft. No: Firm/Rigid, Guarding, Hepatomegaly, Mass, Pulsatile Mass, Splenomegaly, Tenderness, Tenderness, Epigastium Labs: CBC, BMP 04/05/16 05:45 04/05/16 05:45 Problem List - Problems (1) Anemia Assessment/Plan: r/o occult gi bleeding although stool guaiac is negative R> because of his underlying comorbidities, the patient is high risk for any gi procedures at this time, please recall once medically cleared vs continuing conservative management Code(s): D64.9 - ANEMIA, UNSPECIFIED
[2016-04-06] MEDS: metroNIDAZOLE 250 MG TABLET PO SCH ×2 (06:03→13:03)
[2016-04-06] MEDS: DEXTROSE 5%-0.45% SALINE 1,000 ML IV SCH (06:03)
[2016-04-06 06:06] LABS: TRANSFERRIN 148 mg/dL (200-370)
[2016-04-06] MEDS ORDERED: AMINO ACIDS/PROTEIN HYDROLYS SUGAR-FREE 30 ML PACKET PO SCH (08:00)
[2016-04-06] MEDS: ASPIRIN 81 MG CHEWABLE TABLETS PO SCH (09:38)
[2016-04-06] MEDS: TAMSULOSIN HCL 0.4 MG CAP.ER.24H (FP) PO SCH (09:38)
--- NOTE | 2016-04-06 12:04 | PN ---
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
[2016-04-06 13:21] VITALS: PULSE 58; TEMP 97.5
[2016-04-06 14:37] VITALS: BP 102/60
--- NOTE | 2016-04-06 21:14 | DS ---
Physical Examination Vital Signs: Vital Signs Temperature 97.5 F L 04/06/16 14:36 Pulse Rate 58 L 04/06/16 14:36 Respiratory Rate 18 04/06/16 14:36 Blood Pressure 102/60 04/06/16 14:36 O2 Sat by Pulse Oximetry (%) 96 04/06/16 09:00 Constitutional: Yes: No Distress, Calm, Cachectic Eyes: Yes: WNL, Conjunctiva Clear, EOM Intact HENT: Yes: WNL, Atraumatic, Normocephalic Neck: Yes: WNL, Supple, Trachea Midline Cardiovascular: Yes: WNL, Regular Rate and Rhythm Respiratory: Yes: WNL, Regular, CTA Bilaterally Gastrointestinal: Yes: WNL, Normal Bowel Sounds Musculoskeletal: Yes: WNL Extremities: Yes: WNL Edema: No Integumentary: Yes: WNL Neurological: Yes: WNL, Alert, Oriented ...Motor Strength: WNL Psychiatric: Yes: WNL Labs: CBC, BMP 04/05/16 05:45 04/05/16 05:45 Discharge Summary Reason For Visit: DIARRHEA DEHYDRATION Hospital Course: s/p hosp for profuse frequent diarrhea terry positive for c diff started on flagyl improved 2- severe anemia partly due to dilution with IVF stool occult blood negative seen by GI- may warrant colonoscopy when he is better and stronger 3- sinus bradycardia and hypotension on metoprolol which was stopped remains in sinus bradycardis 04/05/2016 better no loose stool 04/04 wants to go back to [place] no diarrhea 04/03 speech eval ID and Cardiol f/u appreciated BMs less liquid "pasty" second BM so far today normal anion gap met acidosis 2/2 gi bicarb losses improving -protein calorie malnutrition with dehydration -acute kidney failure with dehydration 2/2 diarrhea bradycardia may be 2/2 long acting metoprolol he was on in [place] will wait and see if HR picks up with time anemia noted may be dilutional normocytic with high RDW suggestive of different populations of RBCs will order anemia w/u post discharge recommendations- continue flagyl q 6 h for a total of 14 days from 04/03 d/c metoprolol cardiology f/u GI eval when he is better - Instructions Referrals: Wilder Sutherland [Primary Care Provider] - Rodger Cardona MD [Staff Physician] - Juan Diego Menard MD [Staff Physician] - Disposition: NURSING HOME FACILITY - Home Medications Comprehensive Discharge Medication List: Ambulatory Orders Aa/Hydrolyzed Collagen, Whey [Lps Neutral Flavor Liquid] 15 grams PO BID Acetaminophen [Tylenol] 325 mg PO Q6H PRN 04/02/16 Ascorbate Calcium [Vitamin C] 500 mg PO TID 04/02/16 Aspirin [ASA -] 81 mg PO BID 04/02/16 Cyanocobalamin (Vitamin B-12) [B-12] 1,000 mcg PO DAILY 04/02/16 Docusate Sodium [Colace -] 100 mg PO DAILY PRN 04/02/16 Folic Acid 1 mg PO DAILY 04/02/16 Guaifenesin 200 mg PO Q4H PRN 04/02/16 Insulin Regular, Human [Humulin R U-500 Kwikpen] 100 units SQ ASDIR 04/02/16 Iron 325 mg PO TID 04/02/16 Menthol/Zinc Oxide [Calmoseptine Ointment] 0 gm TP DAILY 04/02/16 Metoprolol Succinate [Toprol Xl] 25 mg PO DAILY 04/02/16 Multivitamins [Tab-A-Vit -] 1 tab PO DAILY 04/02/16 Oseltamivir Phosphate [Tamiflu] 75 mg PO DAILY 04/02/16 Polyethylene Glycol 3350 [Miralax 119 gm Btl -] 17 grams PO DAILY PRN 04/02/16 Tamsulosin HCl [Flomax] 0.4 mg PO DAILY 04/02/16
== END 2016-04-06 14:52 | DRG 371 ==
LOC: JER 18:29 → JERBED 04-02 01:24 → UNDOADMIN 04-02 01:24 → JERBED 04-02 04:21 → J6S 04-02 06:43
PROVIDERS: ADMIT Internal Medicine Nephrology; ATTEND Internal Medicine Nephrology
DX: A04.7 Enterocolitis due to Clostridium difficile (principal); E43 Unspecified severe protein-calorie malnutrition; N17.9 Acute kidney failure, unspecified; R64 Cachexia; Z68.1 Body mass index [BMI] 19.9 or less, adult; I50.22 Chronic systolic (congestive) heart failure; I10 Essential (primary) hypertension; E78.5 Hyperlipidemia, unspecified; K42.9 Umbilical hernia without obstruction or gangrene; I25.10 Atherosclerotic heart disease of native coronary artery without angina pectoris; I25.5 Ischemic cardiomyopathy; E86.0 Dehydration; D64.9 Anemia, unspecified; E11.9 Type 2 diabetes mellitus without complications; I25.2 Old myocardial infarction; R00.1 Bradycardia, unspecified; I11.0 Hypertensive heart disease with heart failure; Z87.891 Personal history of nicotine dependence
CPT/HCPCS: 36415; 71010-TC; 74176-TC; 80053; 82272; 82607; 82728; 82746; 83540; 83550; 83605; 83615; 83735; 84443; 84466; 85025; 85027; 86850; 86900; 86901; 87040; 87045; 87046; 87177; 87207; 87209; 87324; 87328; 87329; 87449; 87798; 93005; 93010; 93225; 93226; 99282-25

== ENCOUNTER 2016-07-26 17:04 | Inpatient (IN) | payer OTHER ==
[2016-07-26 17:28] VITALS: BMI 20.9
--- NOTE | 2016-07-26 18:08 | PDOC ---
History of Present Illness - History of Present Illness Initial Comments: 07/26/16 18:39 Patient is an 80 year old male with significant medical hx of AAA, HTN, GERD, DM type II, hypothyroidism, anemia, c. diff, HLD, CAD, and [place] who has been sent to the ED from [place] for rule out c. diff and hypothermia. The patient complains of multiple episodes of diarrhea that began today. The patient does not offer any other complaints. He denies any fever, chills, nausea, vomiting or abdominal pain. The patient was discharged from admission on 04/06/16. During his admission he was found positive for c. diff and started on flagyl. He was also found to be severely anemic. Allergies: Chlorpromazine HCl Past Surgical History: Umbilical Hernia Repair Social History: Former smoker (quit many years ago). Denies alcohol or drug use. PMD: Wilder Sutherland MD <Lynne Piper - Last Filed: 07/26/16 20:27> <Yelitza Ochoa - Last Filed: 07/26/16 22:20> - General Chief Complaint: Diarrhea Stated Complaint: Diarrhea Time Seen by Provider: 07/26/16 17:18 Past History <Lynne Piper - Last Filed: 07/26/16 20:27> - Past Medical History Anemia: No Asthma: No Cancer: No Cardiac Disorders: Yes ([place]) CVA: No COPD: No CHF: No DVT: No Dementia: No Diabetes: Yes GI Disorders: No Disorders: No HTN: Yes Hypercholesterolemia: Yes Liver Disease: No Seizures: No Thyroid Disease: No - Surgical History Abdominal Surgery: Yes (umbilical hernia) Appendectomy: No Cardiac Surgery: No Cholecystectomy: No Lung Surgery: No Neurologic Surgery: No Orthopedic Surgery: No - Immunization History Immunization Up to Date: Yes - Psycho/Social/Smoking Cessation Hx Anxiety: No Suicidal Ideation: No Smoking Status: Yes Smoking History: Unknown if ever smoked Have you smoked in the past 12 months: No Number of Cigarettes Smoked Daily: 0 If you are a former smoker, when did you quit?: many yrs ago Information on smoking cessation initiated: No Hx Alcohol Use: No Drug/Substance Use Hx: No Substance Use Type: None Hx Substance Use Treatment: No <Yelitza Ochoa - Last Filed: 07/26/16 22:20> - Past Medical History Allergies/Adverse Reactions: Allergies Allergy/AdvReac Type Severity Reaction Status Date / Time chlorpromazine HCl Allergy Verified 07/26/16 17:25 [From Thorazine] Home Medications: Ambulatory Orders Aa/Hydrolyzed Collagen, Whey [Lps Neutral Flavor Liquid] 15 grams PO BID Acetaminophen [Tylenol] 325 mg PO Q6H PRN 04/02/16 Ascorbate Calcium [Vitamin C] 500 mg PO TID 04/02/16 Aspirin [ASA -] 81 mg PO BID 04/02/16 Cyanocobalamin (Vitamin B-12) [B-12] 1,000 mcg PO DAILY 04/02/16 Docusate Sodium [Colace -] 100 mg PO DAILY PRN 04/02/16 Folic Acid 1 mg PO DAILY 04/02/16 Guaifenesin 200 mg PO Q4H PRN 04/02/16 Insulin Regular, Human [Humulin R U-500 Kwikpen] 100 units SQ ASDIR 04/02/16 Iron 325 mg PO TID 04/02/16 Menthol/Zinc Oxide [Calmoseptine Ointment] 0 gm TP DAILY 04/02/16 Metoprolol Succinate [Toprol Xl] 25 mg PO DAILY 04/02/16 Multivitamins [Tab-A-Vit -] 1 tab PO DAILY 04/02/16 Oseltamivir Phosphate [Tamiflu] 75 mg PO DAILY 04/02/16 Polyethylene Glycol 3350 [Miralax 119 gm Btl -] 17 grams PO DAILY PRN 04/02/16 Tamsulosin HCl [Flomax] 0.4 mg PO DAILY 04/02/16 Review of Systems - Review of Systems Comments:: 07/26/16 18:40 CONSTITUTIONAL: Absent: fever, chills, diaphoresis, generalized weakness, malaise, loss of appetite HEENT: Absent: rhinorrhea, nasal congestion, throat pain, throat swelling, difficulty swallowing, mouth swelling, ear pain, eye pain, visual changes CARDIOVASCULAR: Absent: chest pain, syncope, palpitations, irregular heart rate, lightheadedness , peripheral edema RESPIRATORY: Absent: cough, shortness of breath, dyspnea with exertion, orthopnea, wheezing, stridor, hemoptysis GASTROINTESTINAL: Present: diarrhea Absent: abdominal pain, abdominal distension, nausea, vomiting, constipation, melena, hematochezia GENITOURINARY: Absent: dysuria, frequency, urgency, hesitancy, hematuria, flank pain, genital pain MUSCULOSKELETAL: Absent: myalgia, arthralgia, joint swelling SKIN: Absent: rash, itching, pallor HEMATOLOGIC/IMMUNOLOGIC: Absent: easy bleeding, easy bruising, lymphadenopathy, frequent infections ENDOCRINE: Absent: unexplained weight gain, unexplained weight loss, heat intolerance, cold intolerance NEUROLOGIC: Absent: headache, focal weakness or paresthesia, dizziness, unsteady gait, seizure, mental status changes, bladder or bowel incontinence. PSYCHIATRIC: Absent: anxiety, depression, suicidal or homicidal ideation, hallucinations <Lynne Piper - Last Filed: 07/26/16 20:27> *Physical Exam - Vital Signs Last Vital Signs Temp Pulse Resp BP Pulse Ox 97.8 F 87 16 106/64 96 07/26/16 17:31 07/26/16 17:31 07/26/16 17:31 07/26/16 17:31 07/26/16 17:31 - Physical Exam Comments: 07/26/16 18:40 GENERAL: Tall, cachectic male. Awake and alert. No acute distress. Wearing a diaper. HEENT: Normocephalic, atraumatic. PERRLA, EOMI. No conjunctival pallor. Sclera are non- icteric. Moist mucous membranes. Oropharynx is clear. NECK: Supple. Full ROM. No JVD. Carotid pulses 2+ and symmetric, without bruits. No thyromegaly. No lymphadenopathy. CARDIOVASCULAR: Regular rate and rhythm. No murmurs, rubs, or gallops. Distal pulses are 2+ and symmetric. PULMONARY: Appears to have respiratory exertion, dyspneic while talking. Crackles to the right base. No wheezing, rales or rhonchi. ABDOMINAL: Flat. Soft. Non-tender. Non-distended. No rebound or guarding. No organomegaly. Normoactive bowel sounds. MUSCULOSKELETAL: Normal range of motion at all joints. No bony deformities or tenderness. No CVA tenderness. EXTREMITIES: No cyanosis. No clubbing. No edema. No calf tenderness. SKIN: Warm and dry. Normal capillary refill. No rashes. No jaundice. NEUROLOGICAL: Alert, awake, conversant. Cranial nerves 2-12 intact. Normal speech. PSYCHIATRIC: Cooperative. Good eye contact. Appropriate mood and affect. <Lynne Piper - Last Filed: 07/26/16 20:27> - Vital Signs Last Vital Signs Temp Pulse Resp BP Pulse Ox 97.8 F 87 16 106/64 96 07/26/16 17:31 07/26/16 17:31 07/26/16 17:31 07/26/16 17:31 07/26/16 17:31 <Yelitza Ochoa - Last Filed: 07/26/16 22:20> Heart Score/ECG Review #1 07/26/16 20:26 Sinus bradycardia at 59 bpm Low voltage QRS Nonspecific ST and T wave abnormality Abnormal ECG <Lynne Piper - Last Filed: 07/26/16 20:27> ED Treatment Course - LABORATORY CBC & Chemistry Diagram: 07/26/16 19:07 07/26/16 19:07 - RADIOLOGY Radiograph Interpretation: 07/26/16 20:27 Chest X-Ray Impression: Mild bibasal atelectatic changes, cannot rule out superimposed infiltrates. Reported By: Norris Campuzano MD <Lynne Piper - Last Filed: 07/26/16 20:27> - LABORATORY CBC & Chemistry Diagram: 07/26/16 19:07 07/26/16 19:07 <Yelitza Ochoa - Last Filed: 07/26/16 22:20> *DC/Admit/Observation/Transfer - Attestations Scribe Attestion: 07/26/16 18:42 Documentation prepared by Lynne Piper, acting as medical front desk coordinator for Yelitza Ochoa MD. <Lynne Piper - Last Filed: 07/26/16 20:27> - Discharge Dispostion Admit: Yes <Yelitza Ochoa - Last Filed: 07/26/16 22:20> Diagnosis at time of Disposition: Chronic systolic CHF (congestive heart failure), Hypoxia Anemia Qualifiers: Anemia type: other cause Other causes of anemia: other cause, not classified Qualified Code(s): D64.89 - Other specified anemias Pneumonia Qualifiers: Pneumonia type: due to unspecified organism Laterality: right Lung location: lower lobe of lung Qualified Code(s): J18.1 - Lobar pneumonia, unspecified organism - Referrals Referrals: Wilder Sutherland [Primary Care Provider] -
[2016-07-26] MEDS ORDERED: SODIUM CHLORIDE 1,000 ML IV SCH (18:15)
[2016-07-26 19:12] LABS: MCH 32.8 pg (25.7-33.7); MEAN CELL VOLUME 102.5 fl (80-96); PLATELET COUNT 246 K/MM3 (134-434); RDW 15.3 % (11.9-15.9); WHITE BLOOD COUNT 20.7 K/mm3 (4.0-10.0)
[2016-07-26 19:41] LABS: INR 1.17 (0.82-1.09); PROTHROMBIN TIME (PATIENT) 12.9 SEC (9.98-11.88)
[2016-07-26 19:43] LABS: ALK PHOS 101 U/L (45-117); ANION GAP 15 (8-16); BILIRUBIN,TOTAL 0.4 mg/dL (0.2-1.0); CALCIUM 8.8 mg/dL (8.5-10.1); CO2 20 mmol/L (21-32); CREATININE 0.8 mg/dL (0.7-1.3); GLUCOSE,RANDOM 103 mg/dL (74-106); SGOT/AST 15 U/L (15-37); SGPT/ALT 17 U/L (12-78); TOT PROT 6.5 g/dl (6.4-8.2)
[2016-07-26 20:02] LABS: ACANTHOCYTES 1+; FRAGMENTED CELL 1+; HYPOCHROMIA 1+; PLATELET ESTIMATE ADEQUATE (NORMAL)
[2016-07-26] MEDS ORDERED: POTASSIUM CHLORIDE TABS 20 MEQ TABLET.ER (FP) PO ONE ×2 (20:02→21:56)
[2016-07-26] MEDS ORDERED: LEVOFLOXACIN 500 MG IVPB 100 ML IVPB ONE ×2 (20:38→21:56)
[2016-07-26] MEDS ORDERED: ACETAMINOPHEN 325 MG TABLET (FP) PO PRN (22:20)
[2016-07-26] MEDS ORDERED: ONDANSETRON 4 MG/2 ML VIAL IVPB PRN (22:20)
[2016-07-27] MEDS ORDERED: SODIUM CHLORIDE 1,000 ML IV ONE (02:15)
[2016-07-27 03:30] LABS: URINE APPEARANCE TURBID; URINE BILIRUBIN NEGATIVE (NEGATIVE); URINE COLOR YELLOW; URINE GLUCOSE (UA) NEGATIVE (NEGATIVE); URINE KETONE NEGATIVE (NEGATIVE); URINE NITRITE POSITIVE (NEGATIVE); URINE UROBILINOGEN NEGATIVE E.U./dl (0.2-1.0)
[2016-07-27 03:31] LABS: URINE BLOOD 1+ (NEGATIVE); URINE LEUK ESTERASE 3+ (NEGATIVE); URINE PROTEIN 1+ (NEGATIVE)
[2016-07-27 03:37] LABS: URINE BACTERIA MANY /hpf (NONE SEEN); URINE HYALINE CAST 18 /lpf; URINE MUCUS FEW; URINE RBC 8 /hpf (0-3); URINE WBC 844 /hpf (3-5)
[2016-07-27] MEDS ORDERED: PIPERACILLIN/TAZOB 3.375 GM 50 ML IVPB ONE (05:05)
[2016-07-27] MEDS ORDERED: SODIUM CHLORIDE 1,000 ML IV STA (05:06)
[2016-07-27] MEDS ORDERED: ASCORBIC ACID 500 MG TABLET (FP) PO SCH ×2 (06:00→14:00)
[2016-07-27] MEDS ORDERED: metroNIDAZOLE 250 MG TABLET PO SCH ×2 (06:00→14:00)
[2016-07-27] MEDS ORDERED: FERROUS SO4 325 MG TABLET (FP) PO SCH ×2 (06:00→14:00)
--- NOTE | 2016-07-27 06:14 | HOSP ---
Subjective - Review of Symptoms Events since last encounter: hypotension, hypothermia Subjective: Patient is an 80 year old male with significant medical hx of AAA, HTN, GERD, DM type II, hypothyroidism, anemia, c. diff, HLD, CAD, and [place] who has been sent to the ED from [place] for rule out c. diff UTI and hypothermia. Patient hypothermic 95-96 on mita hugger, systolic pressure 86 despite 2 boluses 2L of NS Mental status at baseline aaox3 General: Yes: Malaise. No: Chills, Night Sweats HEENT: No: Head Aches, Visual Changes Pulmonary: No: Dyspnea, Cough, Pleuritic Chest Pain Cardiovascular: No: Chest Pain, Palpitations, Other Gastrointestinal: No: Nausea, Vomiting Musculoskeletal: Yes: No Symptoms Neurological: Yes: Weakness. No: Numbness, Seizures Physical Examination Vital Signs: Vital Signs Temperature 96.4 F L 07/27/16 04:31 Pulse Rate 97 H 07/27/16 04:32 Respiratory Rate 18 07/27/16 04:32 Blood Pressure 83/43 07/27/16 04:32 O2 Sat by Pulse Oximetry (%) 100 07/27/16 00:16 Constitutional: Yes: No Distress, Cachectic Eyes: Yes: Conjunctiva Clear, EOM Intact, PERRL HENT: Yes: Atraumatic, Normocephalic Neck: Yes: Supple Cardiovascular: Yes: Regular Rate and Rhythm, S1, S2 Respiratory: Yes: CTA Bilaterally (bibasilar crackles) Gastrointestinal: Yes: Normal Bowel Sounds, Soft Neurological: Yes: Alert, Oriented Psychiatric: Yes: Alert, Oriented Hospitalist Encounter Assessment: Patient is an 80 year old male with significant medical hx of AAA, HTN, GERD, DM type II, hypothyroidism, anemia, c. diff, HLD, CAD, and [place] who has been sent to the ED from [place] for rule out c. diff, found to have UTI and hypothermia. septic shock -urinary source: change abx to zosyn -possibel c diff: continue flagyl -s/p 2 L bolus still hypotension; may require pressors -transfer to ICU Visit type - Emergency Visit Emergency Visit: Yes ED Registration Date: 07/26/16 Care time: The patient presented to the Emergency Department on the above date and was hospitalized for further evaluation of their emergent condition. - New Patient This patient is new to me today: Yes Date on this admission: 07/27/16 - Critical Care Critical Care patient: No
[2016-07-27] MEDS ORDERED: INSULIN SLIDING SCALE (NOVOLOG) 1 VIAL SQ SCH (07:00)
[2016-07-27] MEDS ORDERED: SODIUM CHLORIDE 1,000 ML IV SCH (07:14)
[2016-07-27] MEDS ORDERED: ACETAMINOPHEN 325 MG TABLET (FP) PO PRN (07:14)
[2016-07-27] MEDS ORDERED: ONDANSETRON 4 MG/2 ML VIAL IVPB PRN ×2 (07:14→19:04)
[2016-07-27 07:25] LABS: BASOPHIL 0.5 % (0-2.0); EOSINOPHIL 0.4 % (0-4.5); MCH 33.6 pg (25.7-33.7); MCHC 33.1 g/dl (32.0-35.9); MEAN CELL VOLUME 101.5 fl (80-96); MEAN PLT VOLUME 8.5 fl (7.5-11.1); NEUTROPHILS 88.2 % (42.8-82.8); PLATELET COUNT 188 K/MM3 (134-434); RDW 15.3 % (11.9-15.9); WHITE BLOOD COUNT 13.2 K/mm3 (4.0-10.0)
[2016-07-27 08:19] LABS: ALBUMIN 1.6 g/dl (3.4-5.0); ALK PHOS 81 U/L (45-117); ANION GAP 11 (8-16); BILIRUBIN,TOTAL 0.3 mg/dL (0.2-1.0); CALCIUM 7.4 mg/dL (8.5-10.1); CO2 19 mmol/L (21-32); COCKROFT - GAULT 80.53; CREATININE 0.6 mg/dL (0.7-1.3); GLUCOSE,RANDOM 69 mg/dL (74-106); MAGNESIUM 1.7 mg/dL (1.8-2.4); PHOSPHOROUS 2.1 mg/dL (2.5-4.9); SGOT/AST 10 U/L (15-37); SGPT/ALT 14 U/L (12-78); TOT PROT 5.1 g/dl (6.4-8.2)
[2016-07-27] MEDS ORDERED: TAMSULOSIN HCL 0.4 MG CAP.ER.24H (FP) PO SCH ×2 (08:30)
--- NOTE | 2016-07-27 09:58 | HP ---
Admitting History and Physical - Primary Care Physician PCP: Jean Pierre Méndez - Admission Chief Complaint: I'm feeling ok History of Present Illness: Mr Fu is a pleasant 80 year old male who was sent from [facility] for hypothermia. He says that he was feeling well and did not want to come , that he was not feeling cold. However when his temperature was taken there it was 95F. He says that overall he has been feeling well, however he does complain of chest pain for 1 week and productive cough. He says the chest pain was sharp/dull/burning and located around his heart. It did not radiate. It was constant, and he does not know of anything that made it better or worse. He is not feeling it now, but he cannot tell me when it resolved. He also had productive cough for the same amount of time. He does not know the color or consistency of the expactoration. He also had diarrhea during this time. He has chronic right leg swelling that is unchanged. He denies fevers, chills, lightheadedness, dizziness, passing out, abdominal pain, nausea, vomiting, or difficulty urinating. He originally was admitted to the floor but was found to be hypotensive that was not fluid responsive so was transferred to the ICU. He currently says he is feeling well. History Source: Patient Limitations to Obtaining History: No Limitations - Past Medical History Cardiovascular: Yes: CAD, CHF, HTN, Hyperlipdemia, [place] Endocrine: Yes: Diabetes Mellitus - Past Surgical History Past Surgical History: Yes: Hernia Repair - Smoking History Smoking history: Unknown if ever smoked Have you smoked in the past 12 months: No Aproximately how many cigarettes per day: 0 If you are a former smoker, when did you quit?: many yrs ago - Alcohol/Substance Use Hx Alcohol Use: No History of Substance Use: reports: None - Social History Usual Living Arrangement: Yes: Half-Way ADL: Support Services History of Recent Travel: No Home Medications - Allergies Allergies/Adverse Reactions: Allergies Allergy/AdvReac Type Severity Reaction Status Date / Time chlorpromazine HCl Allergy Verified 07/27/16 00:12 [From Thorazine] - Home Medications Home Medications: Ambulatory Orders Aa/Hydrolyzed Collagen, Whey [Lps Neutral Flavor Liquid] 15 grams PO BID Acetaminophen [Tylenol] 325 mg PO Q6H PRN 04/02/16 Ascorbate Calcium [Vitamin C] 500 mg PO TID 04/02/16 Aspirin [ASA -] 81 mg PO BID 04/02/16 Cyanocobalamin (Vitamin B-12) [B-12] 1,000 mcg PO DAILY 04/02/16 Docusate Sodium [Colace -] 100 mg PO DAILY PRN 04/02/16 Folic Acid 1 mg PO DAILY 04/02/16 Guaifenesin 200 mg PO Q4H PRN 04/02/16 Insulin Regular, Human [Humulin R U-500 Kwikpen] 100 units SQ ASDIR 04/02/16 Iron 325 mg PO TID 04/02/16 Menthol/Zinc Oxide [Calmoseptine Ointment] 0 gm TP DAILY 04/02/16 Metoprolol Succinate [Toprol Xl] 25 mg PO DAILY 04/02/16 Multivitamins [Tab-A-Vit -] 1 tab PO DAILY 04/02/16 Oseltamivir Phosphate [Tamiflu] 75 mg PO DAILY 04/02/16 Polyethylene Glycol 3350 [Miralax 119 gm Btl -] 17 grams PO DAILY PRN 04/02/16 Tamsulosin HCl [Flomax] 0.4 mg PO DAILY 04/02/16 Family Disease History - Family Disease History Family Disease History: Heart Disease: Father Review of Systems Findings/Remarks: Full review of systems obtained, as per HPI and otherwise negative. Physical Examination Vital Signs: Vital Signs Temperature 97 F L 07/27/16 09:23 Pulse Rate 56 L 07/27/16 09:23 Respiratory Rate 13 07/27/16 08:25 Blood Pressure 92/49 07/27/16 08:25 O2 Sat by Pulse Oximetry (%) 100 07/27/16 00:16 Constitutional: Yes: Well Nourished, No Distress, Calm Eyes: Yes: Conjunctiva Clear, EOM Intact, PERRL Cardiovascular: Yes: Bradycardia. No: Gallop, Murmur, Rub Respiratory: Yes: Regular, On Nasal O2, Rhonchi. No: Rales, Wheezes Gastrointestinal: Yes: Normal Bowel Sounds, Soft. No: Distention, Tenderness Extremities: Yes: WNL Edema: Yes Edema: RLE: Trace Labs: CBC, BMP 07/27/16 06:05 07/27/16 06:05 Imaging - Results Chest X-ray: Report Reviewed, Image Reviewed Problem List - Problems (1) Septic shock Assessment/Plan: -as evidenced by hypothermia, hypotension, and leukocytosis -admitted to the ICU -continue fluid resuscitation -continue antibiotics -currently does not need pressors -temperature improved -follow up cultures Code(s): A41.9 - SEPSIS, UNSPECIFIED ORGANISM R65.21 - SEVERE SEPSIS WITH SEPTIC SHOCK (2) HCAP (healthcare-associated pneumonia) Assessment/Plan: -patient with chest pain and productive cough -chest x-ray showing infiltrates -? HCAP -received zosyn -ID consulted -check sputum cultures and urine for antigens Code(s): J18.9 - PNEUMONIA, UNSPECIFIED ORGANISM (3) UTI (urinary tract infection) Assessment/Plan: -urinalysis positive for UTI -continue antibiotics as above -follow up cultures Code(s): N39.0 - URINARY TRACT INFECTION, SITE NOT SPECIFIED (4) Diarrhea Assessment/Plan: -? if secondary to c. diff -stool for c. diff ordered -continue flagyl Code(s): R19.7 - DIARRHEA, UNSPECIFIED Qualifiers: Diarrhea type: unspecified type Qualified Code(s): R19.7 - Diarrhea, unspecified (5) Chest pain Assessment/Plan: -lower suspicion for ACS -will check cardiac enzymes -consult cardiology Code(s): R07.9 - CHEST PAIN, UNSPECIFIED (6) Anemia Assessment/Plan: -chronic -decreased today, suspect was hemoconcentrated on admission -continue iron -monitor Code(s): D64.9 - ANEMIA, UNSPECIFIED Qualifiers: Anemia type: other cause Other causes of anemia: other cause, not classified Qualified Code(s): D64.89 - Other specified anemias (7) Chronic systolic CHF (congestive heart failure) Assessment/Plan: -not in exacerbation -continue hydration for sepsis Code(s): I50.22 - CHRONIC SYSTOLIC (CONGESTIVE) HEART FAILURE (8) CAD (coronary artery disease) Code(s): I25.10 - ATHSCL HEART DISEASE OF [place] CORONARY ARTERY W/O ANG PCTRS (9) Dehydration Assessment/Plan: -continue hydration Code(s): E86.0 - DEHYDRATION (10) HTN (hypertension) Assessment/Plan: -currently hypotensive -holding toprol xl Code(s): I10 - ESSENTIAL (PRIMARY) HYPERTENSION (11) Hypernatremia Assessment/Plan: -change fluids to D5 1/2NS Code(s): E87.0 - HYPEROSMOLALITY AND HYPERNATREMIA
[2016-07-27] MEDS ORDERED: PATIENT'S OWN MEDICATION (NON-FORMULARY) (Aa/Hydrolyzed Collagen, Whey [Lps Neutral Flavor PO SCH (10:00)
[2016-07-27] MEDS ORDERED: MULTIVITAMINS (DAILY MVI) TABLET (FP) PO SCH ×2 (10:00)
[2016-07-27] MEDS ORDERED: METOPROLOL SUCCINATE 25 MG TAB.SR.24H (FP) PO SCH ×2 (10:00)
[2016-07-27] MEDS ORDERED: LEVOFLOXACIN 500 MG IVPB 100 ML IVPB SCH (10:00)
[2016-07-27] MEDS ORDERED: CYANOCOBALAMIN 1,000 MCG TABLET (FP) PO SCH ×2 (10:00)
[2016-07-27] MEDS ORDERED: FOLIC ACID 1 MG TABLET (FP) PO SCH ×2 (10:00)
[2016-07-27] MEDS ORDERED: ASPIRIN 81 MG CHEWABLE TABLETS PO SCH ×2 (10:00)
[2016-07-27] MEDS ORDERED: ENOXAPARIN NA (PORCINE) 40 MG/0.4 ML DISP.SYRIN SQ SCH ×2 (10:00)
[2016-07-27] MEDS ORDERED: POTASSIUM CHLORIDE TABS 20 MEQ TABLET.ER (FP) PO ONE (10:09)
[2016-07-27] MEDS ORDERED: DEXTROSE 5%-0.45% SALINE 1,000 ML IV SCH (10:15)
--- NOTE | 2016-07-27 10:45 | CONSULT ---
Consult Consult Specialty:: infectious diseases Reason for Consultation:: sepsis,hypotensive - History of Present Illness Chief Complaint: weakness History of Present Illness: 80 year old male who was sent from [facility] for hypothermia. He says that he was feeling well and did not want to come, that he was not feeling cold. However when his temperature was taken there it was 95F. patient currently feeling well and says he does not feel very bad at all patient in icu being monitored now his bp is stable and patient looks comfortable patient has been started on abx zosyn - History Source History Provided By: Medical Record Limitations to Obtaining History: Poor Historian - Past Medical History Cardio/Vascular: Yes: CAD, CHF, HTN, Hyperlipdemia, [place] Endocrine: Yes: Diabetes Mellitus - Past Surgical History Past Surgical History: Yes: Hernia Repair - Alcohol/Substance Use Hx Alcohol Use: No History of Substance Use: reports: None - Smoking History Smoking history: Unknown if ever smoked Have you smoked in the past 12 months: No Aproximately how many cigarettes per day: 0 If you are a former smoker, when did you quit?: many yrs ago - Social History Usual Living Arrangement: Half-Way ADL: Support Services History of Recent Travel: No Home Medications - Allergies Allergies/Adverse Reactions: Allergies Allergy/AdvReac Type Severity Reaction Status Date / Time chlorpromazine HCl Allergy Verified 07/27/16 00:12 [From Thorazine] - Home Medications Home Medications: Ambulatory Orders Aa/Hydrolyzed Collagen, Whey [Lps Neutral Flavor Liquid] 15 grams PO BID Acetaminophen [Tylenol] 325 mg PO Q6H PRN 04/02/16 Ascorbate Calcium [Vitamin C] 500 mg PO TID 04/02/16 Aspirin [ASA -] 81 mg PO BID 04/02/16 Cyanocobalamin (Vitamin B-12) [B-12] 1,000 mcg PO DAILY 04/02/16 Docusate Sodium [Colace -] 100 mg PO DAILY PRN 04/02/16 Insulin Regular, Human [Humulin R U-500 Kwikpen] 100 units SQ ASDIR 04/02/16 Menthol/Zinc Oxide [Calmoseptine Ointment] 0 gm TP DAILY 04/02/16 Metoprolol Succinate [Toprol Xl] 25 mg PO DAILY 04/02/16 Multivitamins [Tab-A-Vit -] 1 tab PO DAILY 04/02/16 Oseltamivir Phosphate [Tamiflu] 75 mg PO DAILY 04/02/16 Polyethylene Glycol 3350 [Miralax 119 gm Btl -] 17 grams PO DAILY PRN 04/02/16 RX: Folic Acid 1 mg PO DAILY 04/02/16 RX: Guaifenesin 200 mg PO Q4H PRN 04/02/16 RX: Iron 325 mg PO TID 04/02/16 Tamsulosin HCl [Flomax] 0.4 mg PO DAILY 04/02/16 Family Disease History - Family Disease History Family Disease History: Heart Disease: Father Review of Systems - Review of Systems Constitutional: reports: No Symptoms Eyes: reports: No Symptoms HENT: reports: No Symptoms Neck: reports: No Symptoms Cardiovascular: reports: No Symptoms Respiratory: reports: No Symptoms Gastrointestinal: reports: No Symptoms Genitourinary: reports: No Symptoms Musculoskeletal: reports: No Symptoms Integumentary: reports: No Symptoms Neurological: reports: No Symptoms Endocrine: reports: No Symptoms Hematology/Lymphatic: reports: No Symptoms Psychiatric: reports: No Symptoms Physical Exam Vital Signs: Vital Signs Temperature 97 F L 07/27/16 09:23 Pulse Rate 56 L 07/27/16 09:23 Respiratory Rate 13 07/27/16 08:25 Blood Pressure 92/49 07/27/16 08:25 O2 Sat by Pulse Oximetry (%) 100 07/27/16 00:16 Constitutional: Yes: Well Nourished, No Distress, Calm Cardiovascular: Yes: Regular Rate and Rhythm Respiratory: Yes: Regular, CTA Bilaterally Gastrointestinal: Yes: Normal Bowel Sounds, Soft Musculoskeletal: Yes: WNL Extremities: Yes: WNL Neurological: Yes: Alert, Other Psychiatric: Yes: Alert Labs: CBC, BMP 07/27/16 06:05 07/27/16 06:05 Imaging - Results Chest X-ray: Report Reviewed, Image Reviewed Other: Report Reviewed (echo report noted) Assessment/Plan Problem List - Problems (1) Septic shock Code(s): A41.9 - SEPSIS, UNSPECIFIED ORGANISM R65.21 - SEVERE SEPSIS WITH SEPTIC SHOCK (2) HCAP (healthcare-associated pneumonia) Code(s): J18.9 - PNEUMONIA, UNSPECIFIED ORGANISM (3) UTI (urinary tract infection) Code(s): N39.0 - URINARY TRACT INFECTION, SITE NOT SPECIFIED (4) Diarrhea Code(s): R19.7 - DIARRHEA, UNSPECIFIED Qualifiers: Diarrhea type: unspecified type Qualified Code(s): R19.7 - Diarrhea, unspecified (5) Chest pain Code(s): R07.9 - CHEST PAIN, UNSPECIFIED (6) Anemia Code(s): D64.9 - ANEMIA, UNSPECIFIED Qualifiers: Anemia type: other cause Other causes of anemia: other cause, not classified Qualified Code(s): D64.89 - Other specified anemias (7) Chronic systolic CHF (congestive heart failure) Code(s): I50.22 - CHRONIC SYSTOLIC (CONGESTIVE) HEART FAILURE (8) CAD (coronary artery disease) Code(s): I25.10 - ATHSCL HEART DISEASE OF [place] CORONARY ARTERY W/O ANG PCTRS (9) Dehydration Code(s): E86.0 - DEHYDRATION (10) HTN (hypertension) Code(s): I10 - ESSENTIAL (PRIMARY) HYPERTENSION (11) Hypernatremia Code(s): E87.0 - HYPEROSMOLALITY AND HYPERNATREMIA patent can have multiple cause of this issues plan agree with the abx hydration close monitoring icu management await for all cx results once we have that then we will decide if all the cx are negative will deescalate abx cc time 45 min
[2016-07-27] MEDS ORDERED: MAGNESIUM SULF 50% (8.12 MEQ/2 ML-1 GM VIAL) IVPB ONE (11:00)
--- NOTE | 2016-07-27 11:24 | EKG ---
Test Reason : Blood Pressure : / mmHG Vent. Rate : 059 BPM Atrial Rate : 059 BPM P-R Int : 156 ms QRS Dur : 086 ms QT Int : 420 ms P-R-T Axes : 000 046 -06 degrees QTc Int : 415 ms SINUS BRADYCARDIA LOW VOLTAGE QRS NONSPECIFIC ST AND T WAVE ABNORMALITY ABNORMAL ECG WHEN COMPARED WITH ECG OF 02-APR-2016 09:22, PREMATURE VENTRICULAR COMPLEXES ARE NO LONGER PRESENT ST MORE DEPRESSED INFERIOR LEADS ST NOW DEPRESSED IN ANTERIOR LEADS NONSPECIFIC T WAVE ABNORMALITY NOW EVIDENT IN INFERIOR LEADS Confirmed by RYAN KAUR MD ([id number]) on 07/27/2016 11:24:15 AM Referred By: Confirmed By:RYAN KAUR MD
[2016-07-27 12:17] LABS: TROPONIN I < 0.02 ng/ml (0.00-0.05)
--- NOTE | 2016-07-27 13:46 | PN ---
Physical Exam: SUBJECTIVE: Patient seen and examined. He is feeling better today. He states that his chest pain improved today. Overnight he was found to have septic shock and transferred to ICU for monitoring. OBJECTIVE: Vital Signs Period Temp Pulse Resp BP Sys/Martino Pulse Ox Last 24 Hr 95.2 F-97.9 F 46-97 12-18 83-105/43-81 100-100 GENERAL: The patient is awake, alert, and fully oriented, in no acute distress. HEAD: Normal with no signs of trauma. EYES: extraocular movements intact, sclera anicteric, conjunctiva clear. ENT: oropharynx clear without exudates, moist mucous membranes. NECK: Trachea midline, supple. LUNGS: Breath sounds equal, clear to auscultation bilaterally, no wheezes, no crackles, no accessory muscle use. HEART: Regular rate and rhythm, S1, S2 without murmur, rub or gallop. ABDOMEN: Soft, nontender, nondistended, normoactive bowel sounds, no guarding, no rebound, no hepatosplenomegaly, no masses. EXTREMITIES: warm, no edema, amputated left toe, no erythema. NEUROLOGICAL: Normal speech, gait not observed. PSYCH: Normal mood, normal affect. SKIN: Warm, dry, normal turgor, venous stasis changes in lower extremities B/L. Laboratory Results - last 24 hr 07/27/16 07/27/16 07/27/16 02:39 06:03 06:05 WBC 13.2 H D RBC 2.39 L D Hgb 8.0 L D Hct 24.2 L D MCV 101.5 H MCHC 33.1 RDW 15.3 Plt Count 188 D MPV 8.5 Neutrophils % 88.2 H Lymphocytes % 6.6 L D Monocytes % 4.3 D Eosinophils % 0.4 D Basophils % 0.5 Sodium Potassium Chloride Carbon Dioxide Anion Gap BUN Creatinine Creat Clearance w eGFR POC Glucometer 84 Random Glucose Calcium Phosphorus Magnesium Total Bilirubin AST ALT Alkaline Phosphatase Creatine Kinase Troponin I Total Protein Albumin Urine Color Yellow Urine Appearance Turbid Urine pH 5.0 D Ur Specific [place] 1.015 Urine Protein 1+ H Urine Glucose (UA) Negative Urine Ketones Negative Urine Blood 1+ H Urine Nitrite Positive Urine Bilirubin Negative Urine Urobilinogen Negative Ur Leukocyte Esterase 3+ H Urine RBC 8 Urine WBC 844 Urine Bacteria Many Hyaline Casts 18 Urine Mucus Few 07/27/16 07/27/16 06:05 10:25 WBC RBC Hgb Hct MCV MCHC RDW Plt Count MPV Neutrophils % Lymphocytes % Monocytes % Eosinophils % Basophils % Sodium 151 H Potassium 3.0 L Chloride 121 H Carbon Dioxide 19 L Anion Gap 11 BUN 28 H Creatinine 0.6 L D Creat Clearance w eGFR > 60 POC Glucometer Random Glucose 69 L D Calcium 7.4 L Phosphorus 2.1 L Magnesium 1.7 L Total Bilirubin 0.3 D AST 10 L D ALT 14 Alkaline Phosphatase 81 Creatine Kinase 30 L Troponin I < 0.02 Total Protein 5.1 L D Albumin 1.6 L Urine Color Urine Appearance Urine pH Ur Specific [place] Urine Protein Urine Glucose (UA) Urine Ketones Urine Blood Urine Nitrite Urine Bilirubin Urine Urobilinogen Ur Leukocyte Esterase Urine RBC Urine WBC Urine Bacteria Hyaline Casts Urine Mucus Active Medications Generic Name Dose Route Start Last Admin Trade Name Freq PRN Reason Stop Dose Admin Acetaminophen 650 mg 07/27/16 07:14 Tylenol - PO Q4H PRN FEVER OR PAIN Ascorbic Acid 500 mg 07/27/16 14:00 Vitamin C - PO TID [facility] Aspirin 81 mg 07/27/16 10:00 07/27/16 09:51 Asa - PO 81 mg BID OLESYA Administration Cyanocobalamin 1,000 mcg 07/27/16 10:00 Vitamin B12 - PO DAILY [facility] Enoxaparin Sodium 40 mg 07/27/16 10:00 07/27/16 09:52 Lovenox - SQ 40 mg DAILY OLESYA Administration Ferrous Sulfate 325 mg 07/27/16 14:00 Feosol - PO TID [facility] Folic Acid 1 mg 07/27/16 10:00 07/27/16 09:52 Folic Acid - PO 1 mg DAILY [facility] Administration Dextrose/Sodium Chloride 1,000 mls @ 125 mls/hr 07/27/16 10:15 D5-1/2ns - IV ASDIR [facility] Insulin Aspart 1 vial 07/27/16 11:00 Novolog Vial Sliding Scale - SQ ACHS [facility] Protocol Metoprolol Succinate 25 mg 07/28/16 10:00 Toprol Xl - PO DAILY [facility] Metronidazole 500 mg 07/27/16 14:00 Flagyl - PO TID [facility] Multivitamins/Minerals/Vitamin C 1 tab 07/27/16 10:00 07/27/16 09:53 Tab-A-Vit - PO 1 tab DAILY OLESYA Administration Ondansetron HCl 4 mg 07/27/16 07:14 Zofran Injection IVPB Q6H PRN NAUSEA Potassium Phos/Sodium Phos 1 packet 07/27/16 14:00 Phos-Nak Packet - PO TID OLESYA Tamsulosin HCl 0.4 mg 07/27/16 08:30 07/27/16 09:51 Flomax - PO 0.4 mg DAILY@0830 OLESYA Administration ASSESSMENT/PLAN: 80 year old male with a PMH of AAA, HTN, DM type 2, hypothyroidism, anemia, h/o of C.Diff in March 2016, CAD who was brought to the hospital from [facility] for hypothermia. He originally was admitted to the floor but was found to be hypotensive that was not fluid responsive so was transferred to the ICU. Septic shock due to UTI: -urinalysis positive for UTI -hypothermia, hypotension, and leukocytosis -continue fluid resuscitation NS -continue antibiotics Flagyl -does not need pressors -temperature improved -follow up urine cultures possible HCAP Assessment/Plan: -patient with chest pain and productive cough -chest x-ray showing infiltrates -received Zosyn -ID consulted Diarrhea -? if secondary to c. diff -stool for c. diff ordered -continue flagyl Chest pain -lower suspicion for ACS -f/u cardiac enzymes -consult cardiology Hypokalemia: -repleated -will monitoe Hypomagnesemia: -repleated Anemia -chronic -continue iron -monitor tomorrow Chronic systolic CHF (congestive heart failure) -not in exacerbation HTN Assessment/Plan: -currently hypotensive -holding toprol xl Hypernatremia -change fluids to D5 1/2NS Disposition: transfer to telemetry Problem List - Problems (1) Anemia Code(s): D64.9 - ANEMIA, UNSPECIFIED Qualifiers: Anemia type: other cause Other causes of anemia: other cause, not classified Qualified Code(s): D64.89 - Other specified anemias (2) Chest pain Code(s): R07.9 - CHEST PAIN, UNSPECIFIED (3) Chronic systolic CHF (congestive heart failure) Code(s): I50.22 - CHRONIC SYSTOLIC (CONGESTIVE) HEART FAILURE (4) HCAP (healthcare-associated pneumonia) Code(s): J18.9 - PNEUMONIA, UNSPECIFIED ORGANISM (5) Hypernatremia Code(s): E87.0 - HYPEROSMOLALITY AND HYPERNATREMIA (6) Hypoxia Code(s): R09.02 - HYPOXEMIA (7) Pneumonia Code(s): J18.9 - PNEUMONIA, UNSPECIFIED ORGANISM Qualifiers: Pneumonia type: due to unspecified organism Laterality: right Lung location: lower lobe of lung Qualified Code(s): J18.1 - Lobar pneumonia, unspecified organism (8) Septic shock Code(s): A41.9 - SEPSIS, UNSPECIFIED ORGANISM R65.21 - SEVERE SEPSIS WITH SEPTIC SHOCK (9) UTI (urinary tract infection) Code(s): N39.0 - URINARY TRACT INFECTION, SITE NOT SPECIFIED (10) Bradycardia Code(s): R00.1 - BRADYCARDIA, UNSPECIFIED (11) CAD (coronary artery disease) Code(s): I25.10 - ATHSCL HEART DISEASE OF [place] CORONARY ARTERY W/O ANG PCTRS (12) Dehydration Code(s): E86.0 - DEHYDRATION (13) Diabetes mellitus type 2 in nonobese Code(s): E11.9 - TYPE 2 DIABETES MELLITUS WITHOUT COMPLICATIONS (14) Diarrhea Code(s): R19.7 - DIARRHEA, UNSPECIFIED Qualifiers: Diarrhea type: unspecified type Qualified Code(s): R19.7 - Diarrhea, unspecified (15) HLD (hyperlipidemia) Code(s): E78.5 - HYPERLIPIDEMIA, UNSPECIFIED (16) HTN (hypertension) Code(s): I10 - ESSENTIAL (PRIMARY) HYPERTENSION Visit type - Emergency Visit Emergency Visit: Yes ED Registration Date: 07/26/16 Care time: The patient presented to the Emergency Department on the above date and was hospitalized for further evaluation of their emergent condition. - New Patient This patient is new to me today: Yes Date on this admission: 07/27/16 - Critical Care Critical Care patient: Yes Total Critical Care Time (in minutes): 30 Critical Care Statement: The care of this patient involved high complexity decision making to prevent further life threatening deterioration of the patient 's condition and/or to evalute & treat vital organ system(s) failure or risk of failure.
[2016-07-27] MEDS: INSULIN SLIDING SCALE (NOVOLOG) 1 VIAL SQ SCH ×3 (13:47→21:59)
[2016-07-27] MEDS ORDERED: MAGNESIUM SULF 50% (8.12 MEQ/2 ML-1 GM VIAL) ONE ×2 (13:50→14:06)
[2016-07-27] MEDS ORDERED: NAPH,MB-DB/K PH,MBDB POWDER PACKET PO SCH (14:00)
--- NOTE | 2016-07-27 16:23 | PN ---
Teaching Attending Note Name of Resident: Madina Saldana ATTENDING PHYSICIAN STATEMENT I saw and evaluated the patient. I reviewed the resident's note and discussed the case with the resident. I agree with the resident's findings and plan as documented. SUBJECTIVE: In brief. 89 M, with listed medical history. Admitted via the ER due to hypothermia of (?) 95. Patient reported falling around 1 week ago and still had some lingering left ACW pain. No travel history or sick contacts. He reports a productive cough for several days. No hemoptysis. Initially admitted to the medical floor and was noted to be persistently hypotensive. Admitted to the ICU with presumptive Sepsis from a source or C Diff. Intake & Output 07/24/16 07/25/16 07/26/16 07/27/16 23:59 23:59 23:59 23:59 Intake Total 3990 Balance 3990 Weight 130 lb 135 lb 5 oz Last Vital Signs Temp Pulse Resp BP Pulse Ox 97.3 F L 68 13 99/51 100 07/27/16 14:38 07/27/16 14:38 07/27/16 14:38 07/27/16 14:38 07/27/16 09:00 Active Medications Acetaminophen (Tylenol -) 650 mg PO Q4H PRN PRN Reason: FEVER OR PAIN Ascorbic Acid (Vitamin C -) 500 mg PO TID [facility] Last Admin: 07/27/16 13:48 Dose: 500 mg Aspirin (Asa -) 81 mg PO BID [facility] Last Admin: 07/27/16 09:51 Dose: 81 mg Cyanocobalamin (Vitamin B12 -) 1,000 mcg PO DAILY [facility] Enoxaparin Sodium (Lovenox -) 40 mg SQ DAILY [facility] Last Admin: 07/27/16 09:52 Dose: 40 mg Ferrous Sulfate (Feosol -) 325 mg PO TID [facility] Last Admin: 07/27/16 13:47 Dose: 325 mg Folic Acid (Folic Acid -) 1 mg PO DAILY [facility] Last Admin: 07/27/16 09:52 Dose: 1 mg Dextrose/Sodium Chloride (D5-1/2ns -) 1,000 mls @ 125 mls/hr IV ASDIR [facility] Last Admin: 07/27/16 13:46 Dose: 125 mls/hr Insulin Aspart (Novolog Vial Sliding Scale -) 1 vial SQ ACHS [facility] PRN Reason: Protocol Last Admin: 07/27/16 13:47 Dose: Not Given Metoprolol Succinate (Toprol Xl -) 25 mg PO DAILY [facility] Metronidazole (Flagyl -) 500 mg PO TID [facility] Last Admin: 07/27/16 13:47 Dose: 500 mg Multivitamins/Minerals/Vitamin C (Tab-A-Vit -) 1 tab PO DAILY [facility] Last Admin: 07/27/16 09:53 Dose: 1 tab Ondansetron HCl (Zofran Injection) 4 mg IVPB Q6H PRN PRN Reason: NAUSEA Potassium Phos/Sodium Phos (Phos-Nak Packet -) 1 packet PO TID [facility] Last Admin: 07/27/16 13:48 Dose: 1 packet Tamsulosin HCl (Flomax -) 0.4 mg PO DAILY@0830 [facility] Last Admin: 07/27/16 09:51 Dose: 0.4 mg Constitutional: Yes: Awake and alert, thin Eyes: Yes: Conjunctiva Clear, EOM Intact, PERRL Cardiovascular: Yes: Bradycardia. No: Gallop, Murmur, Rub Respiratory: Yes: Regular, On Nasal O2, few scattered Rhonchi. No: Rales, Wheezes Gastrointestinal: Yes: Normal Bowel Sounds, Soft. No: Distention, Tenderness Extremities: Yes: WNL Edema: Yes Edema: RLE: Trace Labs: Laboratory Results - last 24 hr 07/26/16 07/26/16 07/26/16 18:12 19:07 19:07 WBC 20.7 H D RBC 3.05 L Hgb 10.0 L D Hct 31.2 L MCV 102.5 H MCHC 32.0 RDW 15.3 D Plt Count 246 D MPV 9.0 Neutrophils % 96.0 H Lymphocytes % 2.0 L D Monocytes % 2.0 L D Eosinophils % Basophils % Differential Comment Manual diff done Platelet Estimate Adequate Hypochromic-Microcytic 1+ Macrocytosis Few Acanthocytes (Spur) 1+ Fragmented RBCs 1+ Morphology Comment Slide scanned INR Sodium 148 H Potassium 3.2 L Chloride 113 H Carbon Dioxide 20 L D Anion Gap 15 BUN 31 H Creatinine 0.8 Creat Clearance w eGFR > 60 POC Glucometer Random Glucose 103 Lactic Acid Calcium 8.8 Phosphorus Magnesium Total Bilirubin 0.4 D AST 15 D ALT 17 D Alkaline Phosphatase 101 D Creatine Kinase Troponin I Total Protein 6.5 Albumin 2.0 L Lipase 31 L Urine Color Urine Appearance Urine pH Ur Specific [place] Urine Protein Urine Glucose (UA) Urine Ketones Urine Blood Urine Nitrite Urine Bilirubin Urine Urobilinogen Ur Leukocyte Esterase Urine RBC Urine WBC Urine Bacteria Hyaline Casts Urine Mucus Blood Type A POSITIVE Antibody Screen Negative 07/26/16 07/26/16 07/27/16 19:07 19:07 02:39 WBC RBC Hgb Hct MCV MCHC RDW Plt Count MPV Neutrophils % Lymphocytes % Monocytes % Eosinophils % Basophils % Differential Comment Platelet Estimate Hypochromic-Microcytic Macrocytosis Acanthocytes (Spur) Fragmented RBCs Morphology Comment INR 1.17 H Sodium Potassium Chloride Carbon Dioxide Anion Gap BUN Creatinine Creat Clearance w eGFR POC Glucometer Random Glucose Lactic Acid 1.647 Calcium Phosphorus Magnesium Total Bilirubin AST ALT Alkaline Phosphatase Creatine Kinase Troponin I Total Protein Albumin Lipase Urine Color Yellow Urine Appearance Turbid Urine pH 5.0 D Ur Specific [place] 1.015 Urine Protein 1+ H Urine Glucose (UA) Negative Urine Ketones Negative Urine Blood 1+ H Urine Nitrite Positive Urine Bilirubin Negative Urine Urobilinogen Negative Ur Leukocyte Esterase 3+ H Urine RBC 8 Urine WBC 844 Urine Bacteria Many Hyaline Casts 18 Urine Mucus Few Blood Type Antibody Screen 07/27/16 07/27/16 07/27/16 06:03 06:05 06:05 WBC 13.2 H D RBC 2.39 L D Hgb 8.0 L D Hct 24.2 L D MCV 101.5 H MCHC 33.1 RDW 15.3 Plt Count 188 D MPV 8.5 Neutrophils % 88.2 H Lymphocytes % 6.6 L D Monocytes % 4.3 D Eosinophils % 0.4 D Basophils % 0.5 Differential Comment Platelet Estimate Hypochromic-Microcytic Macrocytosis Acanthocytes (Spur) Fragmented RBCs Morphology Comment INR Sodium 151 H Potassium 3.0 L Chloride 121 H Carbon Dioxide 19 L Anion Gap 11 BUN 28 H Creatinine 0.6 L D Creat Clearance w eGFR > 60 POC Glucometer 84 Random Glucose 69 L D Lactic Acid Calcium 7.4 L Phosphorus 2.1 L Magnesium 1.7 L Total Bilirubin 0.3 D AST 10 L D ALT 14 Alkaline Phosphatase 81 Creatine Kinase Troponin I Total Protein 5.1 L D Albumin 1.6 L Lipase Urine Color Urine Appearance Urine pH Ur Specific [place] Urine Protein Urine Glucose (UA) Urine Ketones Urine Blood Urine Nitrite Urine Bilirubin Urine Urobilinogen Ur Leukocyte Esterase Urine RBC Urine WBC Urine Bacteria Hyaline Casts Urine Mucus Blood Type Antibody Screen 07/27/16 10:25 WBC RBC Hgb Hct MCV MCHC RDW Plt Count MPV Neutrophils % Lymphocytes % Monocytes % Eosinophils % Basophils % Differential Comment Platelet Estimate Hypochromic-Microcytic Macrocytosis Acanthocytes (Spur) Fragmented RBCs Morphology Comment INR Sodium Potassium Chloride Carbon Dioxide Anion Gap BUN Creatinine Creat Clearance w eGFR POC Glucometer Random Glucose Lactic Acid Calcium Phosphorus Magnesium Total Bilirubin AST ALT Alkaline Phosphatase Creatine Kinase 30 L Troponin I < 0.02 Total Protein Albumin Lipase Urine Color Urine Appearance Urine pH Ur Specific [place] Urine Protein Urine Glucose (UA) Urine Ketones Urine Blood Urine Nitrite Urine Bilirubin Urine Urobilinogen Ur Leukocyte Esterase Urine RBC Urine WBC Urine Bacteria Hyaline Casts Urine Mucus Blood Type Antibody Screen Imaging - Results Chest X-ray: Report Reviewed, Image Reviewed Problem List - Problems (1) Septic shock Assessment/Plan: Code(s): A41.9 - SEPSIS, UNSPECIFIED ORGANISM R65.21 - SEVERE SEPSIS WITH SEPTIC SHOCK (2) HCAP (healthcare-associated pneumonia) Assessment/Plan: Code(s): J18.9 - PNEUMONIA, UNSPECIFIED ORGANISM (3) UTI (urinary tract infection) Assessment/Plan: Code(s): N39.0 - URINARY TRACT INFECTION, SITE NOT SPECIFIED (4) Diarrhea Assessment/Plan: Code(s): R19.7 - DIARRHEA, UNSPECIFIED Qualifiers: Diarrhea type: unspecified type Qualified Code(s): R19.7 - Diarrhea, unspecified (5) Chest pain Assessment/Plan: Code(s): R07.9 - CHEST PAIN, UNSPECIFIED (6) Anemia Assessment/Plan: Code(s): D64.9 - ANEMIA, UNSPECIFIED Qualifiers: Anemia type: other cause Other causes of anemia: other cause, not classified Qualified Code(s): D64.89 - Other specified anemias (7) Chronic systolic CHF (congestive heart failure) Assessment/Plan: Code(s): I50.22 - CHRONIC SYSTOLIC (CONGESTIVE) HEART FAILURE (8) CAD (coronary artery disease) Code(s): I25.10 - ATHSCL HEART DISEASE OF [place] CORONARY ARTERY W/O ANG PCTRS (9) Dehydration Assessment/Plan: Code(s): E86.0 - DEHYDRATION (10) HTN (hypertension) Assessment/Plan: Code(s): I10 - ESSENTIAL (PRIMARY) HYPERTENSION (11) Hypernatremia Assessment/Plan: Code(s): E87.0 - HYPEROSMOLALITY AND HYPERNATREMIA PLAN: Aggressive IVF resuscitation [place]-culture ABX per ID O2 as needed VTE prophylaxis Strict I&O PO as tolerated Thank you. Dr Salguero Critical care time spent in reviewing chart, evaluating patient and formulating plan 35 min
[2016-07-27] MEDS: KCL 10 MEQ IVPB 100 ML IVPB SCH ×2 (17:39→19:30)
[2016-07-27 18:42] LABS: TROPONIN I < 0.02 ng/ml (0.00-0.05)
[2016-07-27] MEDS: ASPIRIN 81 MG CHEWABLE TABLETS PO SCH (21:58)
[2016-07-27] MEDS: metroNIDAZOLE 250 MG TABLET PO SCH (21:58)
[2016-07-27] MEDS: FERROUS SO4 325 MG TABLET (FP) PO SCH (21:58)
[2016-07-27] MEDS: DEXTROSE 5%-0.45% SALINE 1,000 ML IV SCH (21:58)
[2016-07-27] MEDS: NAPH,MB-DB/K PH,MBDB POWDER PACKET PO SCH (21:59)
[2016-07-27] MEDS: ASCORBIC ACID 500 MG TABLET (FP) PO SCH (21:59)
[2016-07-28] MEDS ORDERED: PT OWN MED DRAWER 7, Y5N ONE ×3 (05:35→22:58)
[2016-07-28] MEDS: NAPH,MB-DB/K PH,MBDB POWDER PACKET PO SCH ×3 (05:52→23:09)
[2016-07-28] MEDS: ASCORBIC ACID 500 MG TABLET (FP) PO SCH ×3 (05:52→23:09)
[2016-07-28] MEDS: FERROUS SO4 325 MG TABLET (FP) PO SCH ×3 (05:52→23:09)
[2016-07-28] MEDS: DEXTROSE 5%-0.45% SALINE 1,000 ML IV SCH (05:56)
[2016-07-28] MEDS: INSULIN SLIDING SCALE (NOVOLOG) 1 VIAL SQ SCH ×4 (07:00→23:09)
[2016-07-28 07:24] LABS: CALCIUM 8.1 mg/dL (8.5-10.1); COCKROFT - GAULT 71.85; CREATININE 0.7 mg/dL (0.7-1.3); MAGNESIUM 2.1 mg/dL (1.8-2.4); PHOSPHOROUS 1.7 mg/dL (2.5-4.9)
[2016-07-28 07:39] LABS: BASOPHIL 0.5 % (0-2.0); EOSINOPHIL 0.5 % (0-4.5); MCH 33.7 pg (25.7-33.7); MCHC 32.8 g/dl (32.0-35.9); MEAN CELL VOLUME 102.8 fl (80-96); MEAN PLT VOLUME 8.5 fl (7.5-11.1); NEUTROPHILS 90.7 % (42.8-82.8); PLATELET COUNT 232 K/MM3 (134-434); RDW 15.1 % (11.9-15.9); WHITE BLOOD COUNT 16.9 K/mm3 (4.0-10.0)
[2016-07-28] MEDS ORDERED: METOPROLOL SUCCINATE 25 MG TAB.SR.24H (FP) PO SCH ×2 (10:00)
[2016-07-28] MEDS: ASPIRIN 81 MG CHEWABLE TABLETS PO SCH ×2 (10:18→23:09)
[2016-07-28] MEDS: metroNIDAZOLE 250 MG TABLET PO SCH ×3 (10:18→23:09)
[2016-07-28] MEDS: TAMSULOSIN HCL 0.4 MG CAP.ER.24H (FP) PO SCH (10:18)
[2016-07-28] MEDS: MULTIVITAMINS (DAILY MVI) TABLET (FP) PO SCH (10:19)
[2016-07-28] MEDS: ENOXAPARIN NA (PORCINE) 40 MG/0.4 ML DISP.SYRIN SQ SCH (10:19)
[2016-07-28] MEDS: FOLIC ACID 1 MG TABLET (FP) PO SCH (10:19)
[2016-07-28] MEDS: CYANOCOBALAMIN 1,000 MCG TABLET (FP) PO SCH (10:19)
--- NOTE | 2016-07-28 12:03 | CON.CARD ---
Cardiology Consult (text) - Consultation Consultation Note: cc: sent from [facility] for infection/sepsis hpi: 80 m hx htn, hld, dm, cad/HI (seen on prior mibi), syst chf, sent from [facility] for infection/sepsis. Pt reports some generalized weakness but no other specific complaints. He reports that he fell 2weeks ago and bumped his chest and has had some central chest soreness since then, but this is improving. No sob, palps, dizzy, loc, pnd, orthopnea, le edema. Admitted for sepsis. pmh: per hpi psh: nc social: ex tob fam: nc ros: per hpi; no brown, vision changes, gib, hematuria, dysuria, abd pain, +cough, no nasal congestion, no muscle aches meds: Home Medications Medication Instructions Recorded Aa/Hydrolyzed Collagen, Whey [Lps 15 grams PO BID 04/02/16 Neutral Flavor Liquid] Acetaminophen [Tylenol] 325 mg PO Q6H PRN 04/02/16 Ascorbate Calcium [Vitamin C] 500 mg PO TID 04/02/16 Aspirin [ASA -] 81 mg PO BID 04/02/16 Cyanocobalamin (Vitamin B-12) 1,000 mcg PO DAILY 04/02/16 [B-12] Docusate Sodium [Colace -] 100 mg PO DAILY PRN 04/02/16 Folic Acid 1 mg PO DAILY 04/02/16 Guaifenesin 200 mg PO Q4H PRN 04/02/16 Insulin Regular, Human [Humulin R 100 units SQ ASDIR 04/02/16 U-500 Kwikpen] Iron 325 mg PO TID 04/02/16 Menthol/Zinc Oxide [Calmoseptine 0 gm TP DAILY 04/02/16 Ointment] Metoprolol Succinate [Toprol Xl] 25 mg PO DAILY 04/02/16 Multivitamins [Tab-A-Vit -] 1 tab PO DAILY 04/02/16 Oseltamivir Phosphate [Tamiflu] 75 mg PO DAILY 04/02/16 Polyethylene Glycol 3350 [Miralax 17 grams PO DAILY PRN 04/02/16 119 gm Btl -] Tamsulosin HCl [Flomax] 0.4 mg PO DAILY 04/02/16 pe: Vital Signs Period Temp Pulse Resp BP Sys/Martino Pulse Ox Last 24 Hr 97.3 F-98.6 F 50-68 13-20 95-112/50-57 100 nad no jvd, cachectic rrr s1s2 no mrg cta bl nl eff awake, alert, appropriate no carotid bruits, +dp pt abd nt nd pos bs no jaundice diaphoresis no le e/c/c mild chest wall tender to palp Laboratory Last Values WBC 16.9 K/mm3 (4.0-10.0) H 07/28/16 05:35 RBC 2.76 M/mm3 (4.00-5.60) L 07/28/16 05:35 Hgb 9.3 GM/dL (11.7-16.9) L D 07/28/16 05:35 Hct 28.4 % (35.4-49) L D 07/28/16 05:35 MCV 102.8 fl (80-96) H 07/28/16 05:35 MCHC 32.8 g/dl (32.0-35.9) 07/28/16 05:35 RDW 15.1 % (11.9-15.9) 07/28/16 05:35 Plt Count 232 K/MM3 (134-434) D 07/28/16 05:35 MPV 8.5 fl (7.5-11.1) 07/28/16 05:35 Neutrophils % 90.7 % (42.8-82.8) H 07/28/16 05:35 Lymphocytes % 4.5 % (8-40) L D 07/28/16 05:35 Monocytes % 3.8 % (3.8-10.2) 07/28/16 05:35 Eosinophils % 0.5 % (0-4.5) 07/28/16 05:35 Basophils % 0.5 % (0-2.0) 07/28/16 05:35 Differential Comment Manual diff done 07/26/16 19:07 Platelet Estimate Adequate (NORMAL) 07/26/16 19:07 Hypochromic-Microcytic 1+ 07/26/16 19:07 Macrocytosis Few 07/26/16 19:07 Acanthocytes (Spur) 1+ 07/26/16 19:07 Fragmented RBCs 1+ 07/26/16 19:07 Morphology Comment Slide scanned 07/26/16 19:07 INR 1.17 (0.82-1.09) H 07/26/16 19:07 Sodium 149 mmol/L (136-145) H 07/28/16 05:35 Potassium 2.7 mmol/L (3.5-5.1) L* 07/28/16 05:35 Chloride 118 mmol/L (98-107) H 07/28/16 05:35 Carbon Dioxide 19 mmol/L (21-32) L 07/28/16 05:35 Anion Gap 12 (8-16) 07/28/16 05:35 BUN 21 mg/dL (7-18) H D 07/28/16 05:35 Creatinine 0.7 mg/dL (0.7-1.3) 07/28/16 05:35 Creat Clearance w eGFR > 60 (>60) 07/27/16 06:05 POC Glucometer 98 UNITS (()) 07/28/16 05:50 Random Glucose 102 mg/dL (74-106) D 07/28/16 05:35 Lactic Acid 1.647 mmol/L (0.4-2.0) 07/26/16 19:07 Calcium 8.1 mg/dL (8.5-10.1) L 07/28/16 05:35 Phosphorus 1.7 mg/dL (2.5-4.9) L 07/28/16 05:35 Magnesium 2.1 mg/dL (1.8-2.4) D 07/28/16 05:35 Total Bilirubin 0.3 mg/dL (0.2-1.0) D 07/27/16 06:05 AST 10 U/L (15-37) L D 07/27/16 06:05 ALT 14 U/L (12-78) 07/27/16 06:05 Alkaline Phosphatase 81 U/L (45-117) 07/27/16 06:05 Creatine Kinase 27 IU/L (39-308) L 07/27/16 17:20 Troponin I < 0.02 ng/ml (0.00-0.05) 07/27/16 17:20 Total Protein 5.1 g/dl (6.4-8.2) L D 07/27/16 06:05 Albumin 1.6 g/dl (3.4-5.0) L 07/27/16 06:05 Lipase 31 U/L (73-393) L 07/26/16 19:07 Urine Color Yellow 07/27/16 02:39 Urine Appearance Turbid 07/27/16 02:39 Urine pH 5.0 (5.0-8.0) D 07/27/16 02:39 Ur Specific [place] 1.015 (1.005-1.025) 07/27/16 02:39 Urine Protein 1+ (NEGATIVE) H 07/27/16 02:39 Urine Glucose (UA) Negative (NEGATIVE) 07/27/16 02:39 Urine Ketones Negative (NEGATIVE) 07/27/16 02:39 Urine Blood 1+ (NEGATIVE) H 07/27/16 02:39 Urine Nitrite Positive (NEGATIVE) 07/27/16 02:39 Urine Bilirubin Negative (NEGATIVE) 07/27/16 02:39 Urine Urobilinogen Negative E.U./dl (0.2-1.0) 07/27/16 02:39 Ur Leukocyte Esterase 3+ (NEGATIVE) H 07/27/16 02:39 Urine RBC 8 /hpf (0-3) 07/27/16 02:39 Urine WBC 844 /hpf (3-5) 07/27/16 02:39 Urine Bacteria Many /hpf (NONE SEEN) 07/27/16 02:39 Hyaline Casts 18 /lpf 07/27/16 02:39 Urine Mucus Few 07/27/16 02:39 Blood Type A POSITIVE 07/26/16 18:12 Antibody Screen Negative 07/26/16 18:12 ecg 07/26/16: sr 59, nl intervals, no ischemic changes cxr: no chf mibi 10/2011: large inferolateral scar, no ischemia, lvef 35% tele: sr/sb a/p: 80 m hx htn, hld, dm, cad/HI (seen on prior mibi), syst chf, sent from [facility] for infection/sepsis. sepsis: -bp improved with ivfs -cont abx per ID -can hold bb if need for hypotension htn: -septic, can hold bb if needed hld: -stable, not on statin on home med list, outpt f/u cad/mi: -prior mibi showing infarct, no ischemia -no signs acs, trop neg x2 -current cp seems MSK after a recent fall -cont home bb, asa chronic systolic chf: -no signs vol overload -monitor vol status with ivfs -cont bb if bp allows -check updated echo
--- NOTE | 2016-07-28 12:18 | PN ---
Progress Note, Physician History of Present Illness: pulmonary awake,nad,-tahypnea - Current Medication List Current Medications: Active Medications Acetaminophen (Tylenol -) 650 mg PO Q4H PRN PRN Reason: FEVER OR PAIN Ascorbic Acid (Vitamin C -) 500 mg PO TID [facility] Last Admin: 07/28/16 05:52 Dose: 500 mg Aspirin (Asa -) 81 mg PO BID [facility] Last Admin: 07/28/16 10:18 Dose: 81 mg Cyanocobalamin (Vitamin B12 -) 1,000 mcg PO DAILY [facility] Last Admin: 07/28/16 10:19 Dose: 1,000 mcg Enoxaparin Sodium (Lovenox -) 40 mg SQ DAILY [facility] Last Admin: 07/28/16 10:19 Dose: 40 mg Ferrous Sulfate (Feosol -) 325 mg PO TID [facility] Last Admin: 07/28/16 05:52 Dose: 325 mg Folic Acid (Folic Acid -) 1 mg PO DAILY [facility] Last Admin: 07/28/16 10:19 Dose: 1 mg Dextrose/Sodium Chloride (D5-1/2ns -) 1,000 mls @ 125 mls/hr IV ASDIR [facility] Last Admin: 07/28/16 05:56 Dose: 125 mls/hr Insulin Aspart (Novolog Vial Sliding Scale -) 1 vial SQ ACHS [facility] PRN Reason: Protocol Last Admin: 07/27/16 21:59 Dose: Not Given Metoprolol Succinate (Toprol Xl -) 25 mg PO DAILY [facility] Last Admin: 07/28/16 10:19 Dose: Not Given Metronidazole (Flagyl -) 500 mg PO TID [facility] Last Admin: 07/28/16 10:18 Dose: 500 mg Multivitamins/Minerals/Vitamin C (Tab-A-Vit -) 1 tab PO DAILY [facility] Last Admin: 07/28/16 10:19 Dose: 1 tab Ondansetron HCl (Zofran Injection) 4 mg IVPB Q6H PRN PRN Reason: NAUSEA Potassium Phos/Sodium Phos (Phos-Nak Packet -) 1 packet PO TID [facility] Last Admin: 07/28/16 05:52 Dose: 1 packet Tamsulosin HCl (Flomax -) 0.4 mg PO DAILY@0830 [facility] Last Admin: 07/28/16 10:18 Dose: 0.4 mg - Objective Vital Signs: Vital Signs Temperature 97.6 F 07/28/16 05:44 Pulse Rate 50 L 07/28/16 05:44 Respiratory Rate 20 07/28/16 05:44 Blood Pressure 100/52 07/28/16 05:44 O2 Sat by Pulse Oximetry (%) 100 07/27/16 21:00 Constitutional: Yes: Calm, Thin Eyes: Yes: WNL HENT: Yes: WNL Neck: Yes: WNL Cardiovascular: Yes: Regular Rate and Rhythm, S1, S2 Respiratory: Yes: Rhonchi (poor inspiratory effort) Gastrointestinal: Yes: Normal Bowel Sounds, Soft Extremities: Yes: WNL Edema: No Labs: CBC, BMP 07/28/16 05:35 07/28/16 05:35 INR, PTT INR 1.17 (0.82-1.09) H 07/26/16 19:07 Assessment/Plan Problem List - Problems (1) Septic shock Assessment/Plan: Code(s): A41.9 - SEPSIS, UNSPECIFIED ORGANISM R65.21 - SEVERE SEPSIS WITH SEPTIC SHOCK (2) HCAP (healthcare-associated pneumonia) Assessment/Plan: Code(s): J18.9 - PNEUMONIA, UNSPECIFIED ORGANISM (3) UTI (urinary tract infection) Assessment/Plan: Code(s): N39.0 - URINARY TRACT INFECTION, SITE NOT SPECIFIED (4) Diarrhea Assessment/Plan: Code(s): R19.7 - DIARRHEA, UNSPECIFIED Qualifiers: Diarrhea type: unspecified type Qualified Code(s): R19.7 - Diarrhea, unspecified (5) Chest pain Assessment/Plan: Code(s): R07.9 - CHEST PAIN, UNSPECIFIED (6) Anemia Assessment/Plan: Code(s): D64.9 - ANEMIA, UNSPECIFIED Qualifiers: Anemia type: other cause Other causes of anemia: other cause, not classified Qualified Code(s): D64.89 - Other specified anemias (7) Chronic systolic CHF (congestive heart failure) Assessment/Plan: Code(s): I50.22 - CHRONIC SYSTOLIC (CONGESTIVE) HEART FAILURE (8) CAD (coronary artery disease) Code(s): I25.10 - ATHSCL HEART DISEASE OF [place] CORONARY ARTERY W/O ANG PCTRS (9) Dehydration Assessment/Plan: Code(s): E86.0 - DEHYDRATION (10) HTN (hypertension) Assessment/Plan: Code(s): I10 - ESSENTIAL (PRIMARY) HYPERTENSION (11) Hypernatremia Assessment/Plan: Code(s): E87.0 - HYPEROSMOLALITY AND HYPERNATREMIA PLAN: IVF ABX per ID inhaled bronchodilators O2 as needed VTE prophylaxis Strict I&O PO as tolerated replete bhupinder GRAY
--- NOTE | 2016-07-28 16:19 | PN ---
Progress Note, Physician Chief Complaint: Mr Fu complains of chest pain. Otherwise says he is feeling fine and is without complaint. No shortness of breath, nausea, vomiting, or diarrhea. - Current Medication List Current Medications: Active Medications Acetaminophen (Tylenol -) 650 mg PO Q4H PRN PRN Reason: FEVER OR PAIN Ascorbic Acid (Vitamin C -) 500 mg PO TID [facility] Last Admin: 07/28/16 14:55 Dose: 500 mg Aspirin (Asa -) 81 mg PO BID [facility] Last Admin: 07/28/16 10:18 Dose: 81 mg Cyanocobalamin (Vitamin B12 -) 1,000 mcg PO DAILY [facility] Last Admin: 07/28/16 10:19 Dose: 1,000 mcg Enoxaparin Sodium (Lovenox -) 40 mg SQ DAILY [facility] Last Admin: 07/28/16 10:19 Dose: 40 mg Ferrous Sulfate (Feosol -) 325 mg PO TID [facility] Last Admin: 07/28/16 14:55 Dose: 325 mg Folic Acid (Folic Acid -) 1 mg PO DAILY [facility] Last Admin: 07/28/16 10:19 Dose: 1 mg Dextrose/Sodium Chloride (D5-1/2ns -) 1,000 mls @ 125 mls/hr IV ASDIR [facility] Last Admin: 07/28/16 05:56 Dose: 125 mls/hr Insulin Aspart (Novolog Vial Sliding Scale -) 1 vial SQ ACHS [facility] PRN Reason: Protocol Last Admin: 07/28/16 11:44 Dose: Not Given Metoprolol Succinate (Toprol Xl -) 25 mg PO DAILY [facility] Last Admin: 07/28/16 10:19 Dose: Not Given Metronidazole (Flagyl -) 500 mg PO TID [facility] Last Admin: 07/28/16 10:18 Dose: 500 mg Multivitamins/Minerals/Vitamin C (Tab-A-Vit -) 1 tab PO DAILY [facility] Last Admin: 07/28/16 10:19 Dose: 1 tab Ondansetron HCl (Zofran Injection) 4 mg IVPB Q6H PRN PRN Reason: NAUSEA Potassium Phos/Sodium Phos (Phos-Nak Packet -) 1 packet PO TID [facility] Last Admin: 07/28/16 14:55 Dose: 1 packet Tamsulosin HCl (Flomax -) 0.4 mg PO DAILY@0830 [facility] Last Admin: 07/28/16 10:18 Dose: 0.4 mg - Objective Vital Signs: Vital Signs Temperature 98 F 07/28/16 14:24 Pulse Rate 56 L 07/28/16 14:24 Respiratory Rate 18 07/28/16 14:24 Blood Pressure 103/50 07/28/16 14:24 O2 Sat by Pulse Oximetry (%) 100 07/27/16 21:00 Constitutional: Yes: Well Nourished, No Distress, Calm Cardiovascular: Yes: Bradycardia. No: Gallop, Murmur, Rub Respiratory: Yes: Regular, CTA Bilaterally. No: Rales, Rhonchi, Wheezes Gastrointestinal: Yes: Normal Bowel Sounds, Soft. No: Distention, Tenderness Extremities: Yes: WNL Edema: No Labs: CBC, BMP 07/28/16 05:35 07/28/16 05:35 INR, PTT INR 1.17 (0.82-1.09) H 07/26/16 19:07 Problem List - Problems (1) Septic shock Code(s): A41.9 - SEPSIS, UNSPECIFIED ORGANISM R65.21 - SEVERE SEPSIS WITH SEPTIC SHOCK (2) HCAP (healthcare-associated pneumonia) Code(s): J18.9 - PNEUMONIA, UNSPECIFIED ORGANISM (3) UTI (urinary tract infection) Code(s): N39.0 - URINARY TRACT INFECTION, SITE NOT SPECIFIED (4) C. difficile colitis Code(s): A04.7 - ENTEROCOLITIS DUE TO CLOSTRIDIUM DIFFICILE (5) Chest pain Code(s): R07.9 - CHEST PAIN, UNSPECIFIED (6) Anemia Code(s): D64.9 - ANEMIA, UNSPECIFIED Qualifiers: Anemia type: other cause Other causes of anemia: other cause, not classified Qualified Code(s): D64.89 - Other specified anemias (7) Chronic systolic CHF (congestive heart failure) Code(s): I50.22 - CHRONIC SYSTOLIC (CONGESTIVE) HEART FAILURE (8) CAD (coronary artery disease) Code(s): I25.10 - ATHSCL HEART DISEASE OF [place] CORONARY ARTERY W/O ANG PCTRS (9) Dehydration Code(s): E86.0 - DEHYDRATION (10) HTN (hypertension) Code(s): I10 - ESSENTIAL (PRIMARY) HYPERTENSION (11) Hypernatremia Code(s): E87.0 - HYPEROSMOLALITY AND HYPERNATREMIA (12) Hypomagnesemia Code(s): E83.42 - HYPOMAGNESEMIA (13) Hypokalemia Code(s): E87.6 - HYPOKALEMIA Assessment/Plan (1) Septic shock Assessment/Plan: -improving, however still with leukocytosis and hypotension -continue treatment of underlying infections and hydration Code(s): A41.9 - SEPSIS, UNSPECIFIED ORGANISM R65.21 - SEVERE SEPSIS WITH SEPTIC SHOCK (2) HCAP (healthcare-associated pneumonia) Assessment/Plan: -unsure if actually pneumonia -sepsis most likely secondary to UTI and c. diff colitis -ID following, currently not receiving antibiotics for pneumonia Code(s): J18.9 - PNEUMONIA, UNSPECIFIED ORGANISM (3) UTI (urinary tract infection) Assessment/Plan: -cultures are growing enterococcus and gram negative rods -may benefit from vancomycin and pseudomonal antibiotic until cultures result -ID following, will discuss Code(s): N39.0 - URINARY TRACT INFECTION, SITE NOT SPECIFIED (4) C diff colitis Assessment/Plan: -continue oral flagyl -may need to change to oral vancomycin if not effective Code(s): R19.7 - DIARRHEA, UNSPECIFIED Qualifiers: Diarrhea type: unspecified type Qualified Code(s): R19.7 - Diarrhea, unspecified (5) Chest pain Assessment/Plan: -appreciate cardiology assistance -ECHO ordered Code(s): R07.9 - CHEST PAIN, UNSPECIFIED (6) Anemia Assessment/Plan: -chronic -improved today Code(s): D64.9 - ANEMIA, UNSPECIFIED Qualifiers: Anemia type: other cause Other causes of anemia: other cause, not classified Qualified Code(s): D64.89 - Other specified anemias (7) Chronic systolic CHF (congestive heart failure) Assessment/Plan: -not in exacerbation -continue hydration for sepsis Code(s): I50.22 - CHRONIC SYSTOLIC (CONGESTIVE) HEART FAILURE (8) CAD (coronary artery disease) -continue home regimen -cardiology following Code(s): I25.10 - ATHSCL HEART DISEASE OF [place] CORONARY ARTERY W/O ANG PCTRS (9) Dehydration Assessment/Plan: -continue hydration Code(s): E86.0 - DEHYDRATION (10) HTN (hypertension) Assessment/Plan: -currently hypotensive -holding toprol xl Code(s): I10 - ESSENTIAL (PRIMARY) HYPERTENSION (11) Hypernatremia Assessment/Plan: -improving -continue current fluids Code(s): E87.0 - HYPEROSMOLALITY AND HYPERNATREMIA (12) FEN -replace magnesium and potassium
[2016-07-28] MEDS ORDERED: MAGNESIUM SULF 50% (8.12 MEQ/2 ML-1 GM VIAL) IVPB ONE (16:25)
[2016-07-28] MEDS ORDERED: POTASSIUM CHLORIDE ORAL LIQUID 20 MEQ/15 ML PO ONE (16:25)
[2016-07-28] MEDS: KCL 10 MEQ IVPB 100 ML IVPB SCH ×3 (17:25→20:30)
[2016-07-29] MEDS ORDERED: PT OWN MED DRAWER 7, Y5N ONE ×2 (06:12→21:50)
[2016-07-29] MEDS: INSULIN SLIDING SCALE (NOVOLOG) 1 VIAL SQ SCH ×4 (06:20→22:39)
[2016-07-29] MEDS: ASCORBIC ACID 500 MG TABLET (FP) PO SCH ×3 (06:20→22:00)
[2016-07-29] MEDS: FERROUS SO4 325 MG TABLET (FP) PO SCH ×3 (06:20→22:00)
[2016-07-29] MEDS: NAPH,MB-DB/K PH,MBDB POWDER PACKET PO SCH ×3 (06:20→22:40)
[2016-07-29] MEDS: metroNIDAZOLE 250 MG TABLET PO SCH ×3 (07:02→22:00)
[2016-07-29 08:00] LABS: BASOPHIL 0.2 % (0-2.0); EOSINOPHIL 0.8 % (0-4.5); MCH 33.3 pg (25.7-33.7); MCHC 32.6 g/dl (32.0-35.9); MEAN CELL VOLUME 101.9 fl (80-96); MEAN PLT VOLUME 8.5 fl (7.5-11.1); NEUTROPHILS 85.9 % (42.8-82.8); PLATELET COUNT 241 K/MM3 (134-434); RDW 15.3 % (11.9-15.9); WHITE BLOOD COUNT 13.1 K/mm3 (4.0-10.0)
[2016-07-29 08:08] LABS: CALCIUM 7.6 mg/dL (8.5-10.1); COCKROFT - GAULT 83.82; CREATININE 0.6 mg/dL (0.7-1.3); MAGNESIUM 2.3 mg/dL (1.8-2.4); PHOSPHOROUS 1.5 mg/dL (2.5-4.9)
[2016-07-29] MEDS ORDERED: POTASSIUM PHOSPHATE 16 MM in DEXTROSE 5%-WATER - 250 ML IVPB ONE (10:00)
[2016-07-29] MEDS: CYANOCOBALAMIN 1,000 MCG TABLET (FP) PO SCH (10:55)
[2016-07-29] MEDS: ASPIRIN 81 MG CHEWABLE TABLETS PO SCH ×2 (10:55→22:00)
[2016-07-29] MEDS: ENOXAPARIN NA (PORCINE) 40 MG/0.4 ML DISP.SYRIN SQ SCH (10:55)
[2016-07-29] MEDS: MULTIVITAMINS (DAILY MVI) TABLET (FP) PO SCH (10:55)
[2016-07-29] MEDS: FOLIC ACID 1 MG TABLET (FP) PO SCH (10:55)
[2016-07-29] MEDS: TAMSULOSIN HCL 0.4 MG CAP.ER.24H (FP) PO SCH (10:56)
[2016-07-29] MEDS: D5-1/2NS+40 MEQ KCL - 1,000 ML IV SCH (10:58)
[2016-07-29] MEDS ORDERED: PIPERACILLIN/TAZOB 3.375 GM 50 ML IVPB ONE (12:00)
--- NOTE | 2016-07-29 12:02 | PN ---
Progress Note (short form) - Note Progress Note: s: no cp sob palps dizzy o: Vital Signs Period Temp Pulse Resp BP Sys/Martino Pulse Ox Last 24 Hr 97 F-98.1 F 47-60 18-70 92-115/50-59 100 nad no jvd, cachectic rrr s1s2 no mrg cta bl nl eff awake, alert, appropriate abd nt nd pos bs no jaundice diaphoresis no le e/c/c mild chest wall tender to palp Current Medications Generic Name Dose Route Start Last Admin Trade Name Freq PRN Reason Stop Dose Admin Acetaminophen 650 mg 07/27/16 19:04 Tylenol - PO Q4H PRN FEVER OR PAIN Ascorbic Acid 500 mg 07/27/16 22:00 07/29/16 06:20 Vitamin C - PO 500 mg TID [facility] Administration Aspirin 81 mg 07/27/16 22:00 07/29/16 10:55 Asa - PO 81 mg BID [facility] Administration Cyanocobalamin 1,000 mcg 07/28/16 10:00 07/29/16 10:55 Vitamin B12 - PO 1,000 mcg DAILY [facility] Administration Enoxaparin Sodium 40 mg 07/28/16 10:00 07/29/16 10:55 Lovenox - SQ 40 mg DAILY [facility] Administration Ferrous Sulfate 325 mg 07/27/16 22:00 07/29/16 06:20 Feosol - PO 325 mg TID [facility] Administration Folic Acid 1 mg 07/28/16 10:00 07/29/16 10:55 Folic Acid - PO 1 mg DAILY [facility] Administration Dextrose/Sodium Chloride 1,000 mls @ 100 mls/hr 07/29/16 09:45 07/29/16 10:58 D5-1/2ns+40 Meq Kcl - IV 100 mls/hr ASDIR [facility] Administration Potassium Phosphate 16 mm/ 255.3333 mls @ 62.5 mls/hr 07/29/16 10:00 Dextrose IVPB 07/29/16 14:05 ONCE ONE Piperacillin Sod/Tazobactam Sod 50 mls @ 100 mls/hr 07/29/16 12:00 Zosyn 3.375gm Ivpb (Pre-Docked) IVPB 07/29/16 12:29 ONCE ONE Protocol Insulin Aspart 1 vial 07/27/16 22:00 07/29/16 11:02 Novolog Vial Sliding Scale - SQ Not Given ACHS [facility] Protocol Metronidazole 500 mg 07/27/16 22:00 07/29/16 07:02 Flagyl - PO 500 mg TID [facility] Administration Multivitamins/Minerals/Vitamin C 1 tab 07/28/16 10:00 07/29/16 10:55 Tab-A-Vit - PO 1 tab DAILY [facility] Administration Ondansetron HCl 4 mg 07/27/16 19:04 Zofran Injection IVPB Q6H PRN NAUSEA Potassium Phos/Sodium Phos 1 packet 07/27/16 22:00 07/29/16 06:20 Phos-Nak Packet - PO 1 packet TID [facility] Administration Tamsulosin HCl 0.4 mg 07/28/16 08:30 07/29/16 10:56 Flomax - PO 0.4 mg DAILY@0830 [facility] Administration CBC, BMP 07/29/16 05:35 07/29/16 05:35 ecg 07/26/16: sr 59, nl intervals, no ischemic changes cxr: no chf mibi 10/2011: large inferolateral scar, no ischemia, lvef 35% tele: sr/sb a/p: 80 m hx htn, hld, dm, cad/MA (seen on prior mibi), syst chf, [place]/se[place]. sepsis: -bp improved with ivfs -cont abx per ID htn: -septic, bp on low side, holding htn meds hld: -stable, not on statin on home med list, outpt f/u cad/mi: -prior mibi showing infarct, no ischemia -no signs acs, trop neg x2 -current cp seems MSK after a recent fall -cont home asa chronic systolic chf: -no signs vol overload -monitor vol status with ivfs -check updated echo -not on bb due to bradycardia bradycardia: -pt with known sinus tashia evaluated with holter on prior admit that showed no pathologic bradycardia -tele here with sr in 40s at times so will dc bb, avoid meds that cause bradycardia
--- NOTE | 2016-07-29 13:21 | PN ---
Progress Note, Physician Chief Complaint: Mr Fu says he is feeling better. Is currently chest pain free. No sob or n/v. - Current Medication List Current Medications: Active Medications Acetaminophen (Tylenol -) 650 mg PO Q4H PRN PRN Reason: FEVER OR PAIN Ascorbic Acid (Vitamin C -) 500 mg PO TID [facility] Last Admin: 07/29/16 06:20 Dose: 500 mg Aspirin (Asa -) 81 mg PO BID [facility] Last Admin: 07/29/16 10:55 Dose: 81 mg Cyanocobalamin (Vitamin B12 -) 1,000 mcg PO DAILY [facility] Last Admin: 07/29/16 10:55 Dose: 1,000 mcg Enoxaparin Sodium (Lovenox -) 40 mg SQ DAILY [facility] Last Admin: 07/29/16 10:55 Dose: 40 mg Ferrous Sulfate (Feosol -) 325 mg PO TID [facility] Last Admin: 07/29/16 06:20 Dose: 325 mg Folic Acid (Folic Acid -) 1 mg PO DAILY [facility] Last Admin: 07/29/16 10:55 Dose: 1 mg Dextrose/Sodium Chloride (D5-1/2ns+40 Meq Kcl -) 1,000 mls @ 100 mls/hr IV ASDIR [facility] Last Admin: 07/29/16 10:58 Dose: 100 mls/hr Potassium Phosphate 16 mm/ (Dextrose) 255.3333 mls @ 62.5 mls/hr IVPB ONCE ONE Stop: 07/29/16 14:05 Last Admin: 07/29/16 10:45 Dose: 62.5 mls/hr Insulin Aspart (Novolog Vial Sliding Scale -) 1 vial SQ ACHS [facility] PRN Reason: Protocol Last Admin: 07/29/16 11:02 Dose: Not Given Metronidazole (Flagyl -) 500 mg PO TID [facility] Last Admin: 07/29/16 07:02 Dose: 500 mg Multivitamins/Minerals/Vitamin C (Tab-A-Vit -) 1 tab PO DAILY [facility] Last Admin: 07/29/16 10:55 Dose: 1 tab Ondansetron HCl (Zofran Injection) 4 mg IVPB Q6H PRN PRN Reason: NAUSEA Potassium Phos/Sodium Phos (Phos-Nak Packet -) 1 packet PO TID [facility] Last Admin: 07/29/16 06:20 Dose: 1 packet Tamsulosin HCl (Flomax -) 0.4 mg PO DAILY@0830 [facility] Last Admin: 07/29/16 10:56 Dose: 0.4 mg - Objective Vital Signs: Vital Signs Temperature 98.1 F 07/29/16 08:43 Pulse Rate 50 L 07/29/16 08:43 Respiratory Rate 18 07/29/16 08:43 Blood Pressure 101/59 07/29/16 08:43 O2 Sat by Pulse Oximetry (%) 96 07/29/16 08:00 Constitutional: Yes: Well Nourished, No Distress, Calm Cardiovascular: Yes: Regular Rate and Rhythm. No: Gallop, Murmur, Rub Respiratory: Yes: Regular, CTA Bilaterally. No: Rales, Rhonchi, Wheezes Gastrointestinal: Yes: Normal Bowel Sounds, Soft. No: Distention, Tenderness Extremities: Yes: WNL Edema: No Labs: CBC, BMP 07/29/16 05:35 07/29/16 05:35 INR, PTT INR 1.17 (0.82-1.09) H 07/26/16 19:07 Problem List - Problems (1) Septic shock Code(s): A41.9 - SEPSIS, UNSPECIFIED ORGANISM R65.21 - SEVERE SEPSIS WITH SEPTIC SHOCK (2) HCAP (healthcare-associated pneumonia) Code(s): J18.9 - PNEUMONIA, UNSPECIFIED ORGANISM (3) UTI (urinary tract infection) Code(s): N39.0 - URINARY TRACT INFECTION, SITE NOT SPECIFIED (4) C. difficile colitis Code(s): A04.7 - ENTEROCOLITIS DUE TO CLOSTRIDIUM DIFFICILE (5) Chest pain Code(s): R07.9 - CHEST PAIN, UNSPECIFIED (6) Anemia Code(s): D64.9 - ANEMIA, UNSPECIFIED Qualifiers: Anemia type: other cause Other causes of anemia: other cause, not classified Qualified Code(s): D64.89 - Other specified anemias (7) Chronic systolic CHF (congestive heart failure) Code(s): I50.22 - CHRONIC SYSTOLIC (CONGESTIVE) HEART FAILURE (8) CAD (coronary artery disease) Code(s): I25.10 - ATHSCL HEART DISEASE OF [place] CORONARY ARTERY W/O ANG PCTRS (9) Dehydration Code(s): E86.0 - DEHYDRATION (10) HTN (hypertension) Code(s): I10 - ESSENTIAL (PRIMARY) HYPERTENSION (11) Hypernatremia Code(s): E87.0 - HYPEROSMOLALITY AND HYPERNATREMIA (12) Hypomagnesemia Code(s): E83.42 - HYPOMAGNESEMIA (13) Hypokalemia Code(s): E87.6 - HYPOKALEMIA (14) Hypophosphatemia Code(s): E83.39 - OTHER DISORDERS OF PHOSPHORUS METABOLISM Assessment/Plan (1) Septic shock Assessment/Plan: -improving, leukcytosis and blood pressure improving -continue treatment of underlying infections and hydration Code(s): A41.9 - SEPSIS, UNSPECIFIED ORGANISM R65.21 - SEVERE SEPSIS WITH SEPTIC SHOCK (2) HCAP (healthcare-associated pneumonia) Assessment/Plan: -unsure if actually pneumonia -sepsis most likely secondary to UTI and c. diff colitis -ID following, currently not receiving antibiotics for pneumonia Code(s): J18.9 - PNEUMONIA, UNSPECIFIED ORGANISM (3) UTI (urinary tract infection) Assessment/Plan: -cultures growing ESBL e.coli and enterococcus -d/w ID -will give dose of zosyn now, ID to order long standing broad spectrum antibiotics Code(s): N39.0 - URINARY TRACT INFECTION, SITE NOT SPECIFIED (4) C diff colitis Assessment/Plan: -continue oral flagyl Code(s): R19.7 - DIARRHEA, UNSPECIFIED Qualifiers: Diarrhea type: unspecified type Qualified Code(s): R19.7 - Diarrhea, unspecified (5) Chest pain Assessment/Plan: -appreciate cardiology assistance -ECHO ordered -chest pain resolved Code(s): R07.9 - CHEST PAIN, UNSPECIFIED (6) Anemia Assessment/Plan: -chronic and stable Code(s): D64.9 - ANEMIA, UNSPECIFIED Qualifiers: Anemia type: other cause Other causes of anemia: other cause, not classified Qualified Code(s): D64.89 - Other specified anemias (7) Chronic systolic CHF (congestive heart failure) Assessment/Plan: -not in exacerbation -continue hydration for sepsis Code(s): I50.22 - CHRONIC SYSTOLIC (CONGESTIVE) HEART FAILURE (8) CAD (coronary artery disease) -continue home regimen -cardiology following Code(s): I25.10 - ATHSCL HEART DISEASE OF [place] CORONARY ARTERY W/O ANG PCTRS (9) Dehydration Assessment/Plan: -continue hydration Code(s): E86.0 - DEHYDRATION (10) HTN (hypertension) Assessment/Plan: -normotensive -continue holding toprol xl Code(s): I10 - ESSENTIAL (PRIMARY) HYPERTENSION (11) Hypernatremia Assessment/Plan: -stable -continue D5 1/NS Code(s): E87.0 - HYPEROSMOLALITY AND HYPERNATREMIA (12) FEN -replace magnesium, potassium, and phosphorus
--- NOTE | 2016-07-29 14:54 | PN ---
Progress Note (short form) - Note Progress Note: PULMONARY Weak, somnolent but arousable. Denies shortness of breath. +weak cough. Last Vital Signs Temp Pulse Resp BP Pulse Ox 98.1 F 50 L 18 101/59 96 07/29/16 08:43 07/29/16 08:43 07/29/16 08:43 07/29/16 08:43 07/29/16 08:00 Gen: weak, chronically ill appearing Heart: RRR Lung: bilateral rhonchi Abd: soft, nontender Ext: no edema CBC, BMP 07/29/16 05:35 07/29/16 05:35 Active Medications Acetaminophen (Tylenol -) 650 mg PO Q4H PRN PRN Reason: FEVER OR PAIN Ascorbic Acid (Vitamin C -) 500 mg PO TID [facility] Last Admin: 07/29/16 14:33 Dose: 500 mg Aspirin (Asa -) 81 mg PO BID [facility] Last Admin: 07/29/16 10:55 Dose: 81 mg Cyanocobalamin (Vitamin B12 -) 1,000 mcg PO DAILY [facility] Last Admin: 07/29/16 10:55 Dose: 1,000 mcg Enoxaparin Sodium (Lovenox -) 40 mg SQ DAILY [facility] Last Admin: 07/29/16 10:55 Dose: 40 mg Ferrous Sulfate (Feosol -) 325 mg PO TID [facility] Last Admin: 07/29/16 14:33 Dose: 325 mg Folic Acid (Folic Acid -) 1 mg PO DAILY [facility] Last Admin: 07/29/16 10:55 Dose: 1 mg Dextrose/Sodium Chloride (D5-1/2ns+40 Meq Kcl -) 1,000 mls @ 100 mls/hr IV ASDIR [facility] Last Admin: 07/29/16 10:58 Dose: 100 mls/hr Insulin Aspart (Novolog Vial Sliding Scale -) 1 vial SQ ACHS [facility] PRN Reason: Protocol Last Admin: 07/29/16 11:02 Dose: Not Given Metronidazole (Flagyl -) 500 mg PO TID [facility] Last Admin: 07/29/16 14:34 Dose: 500 mg Multivitamins/Minerals/Vitamin C (Tab-A-Vit -) 1 tab PO DAILY [facility] Last Admin: 07/29/16 10:55 Dose: 1 tab Ondansetron HCl (Zofran Injection) 4 mg IVPB Q6H PRN PRN Reason: NAUSEA Potassium Phos/Sodium Phos (Phos-Nak Packet -) 1 packet PO TID [facility] Last Admin: 07/29/16 14:33 Dose: 1 packet Tamsulosin HCl (Flomax -) 0.4 mg PO DAILY@0830 [facility] Last Admin: 07/29/16 10:56 Dose: 0.4 mg A/P UTI C Diff Colitis Pneumonia vs Atelectasis Septic Shock resolving CAD LV Systolic Dysfunction HTN - continue antibiotics - IVF - monitor urine output, creatinine - replete lytes - aspiration precautions - attempt incentive spirometry - DVT prophylaxis
--- NOTE | 2016-07-29 19:55 | PN ---
Progress Note, Physician History of Present Illness: stable no new issues says he is doing well patient eating ok - Current Medication List Current Medications: Active Medications Acetaminophen (Tylenol -) 650 mg PO Q4H PRN PRN Reason: FEVER OR PAIN Ascorbic Acid (Vitamin C -) 500 mg PO TID [facility] Last Admin: 07/29/16 14:33 Dose: 500 mg Aspirin (Asa -) 81 mg PO BID [facility] Last Admin: 07/29/16 10:55 Dose: 81 mg Cyanocobalamin (Vitamin B12 -) 1,000 mcg PO DAILY [facility] Last Admin: 07/29/16 10:55 Dose: 1,000 mcg Enoxaparin Sodium (Lovenox -) 40 mg SQ DAILY [facility] Last Admin: 07/29/16 10:55 Dose: 40 mg Ferrous Sulfate (Feosol -) 325 mg PO TID [facility] Last Admin: 07/29/16 14:33 Dose: 325 mg Folic Acid (Folic Acid -) 1 mg PO DAILY [facility] Last Admin: 07/29/16 10:55 Dose: 1 mg Dextrose/Sodium Chloride (D5-1/2ns+40 Meq Kcl -) 1,000 mls @ 100 mls/hr IV ASDIR [facility] Last Admin: 07/29/16 10:58 Dose: 100 mls/hr Ertapenem 1 gm/ Sodium (Chloride) 50 mls @ 50 mls/hr IVPB DAILY [facility] PRN Reason: Protocol Insulin Aspart (Novolog Vial Sliding Scale -) 1 vial SQ ACHS [facility] PRN Reason: Protocol Last Admin: 07/29/16 17:25 Dose: Not Given Metronidazole (Flagyl -) 500 mg PO TID [facility] Last Admin: 07/29/16 14:34 Dose: 500 mg Multivitamins/Minerals/Vitamin C (Tab-A-Vit -) 1 tab PO DAILY [facility] Last Admin: 07/29/16 10:55 Dose: 1 tab Ondansetron HCl (Zofran Injection) 4 mg IVPB Q6H PRN PRN Reason: NAUSEA Potassium Phos/Sodium Phos (Phos-Nak Packet -) 1 packet PO TID [facility] Last Admin: 07/29/16 14:33 Dose: 1 packet Tamsulosin HCl (Flomax -) 0.4 mg PO DAILY@0830 [facility] Last Admin: 07/29/16 10:56 Dose: 0.4 mg - Objective Vital Signs: Vital Signs Temperature 97.7 F 07/29/16 14:00 Pulse Rate 58 L 07/29/16 14:00 Respiratory Rate 20 07/29/16 14:00 Blood Pressure 102/61 07/29/16 14:00 O2 Sat by Pulse Oximetry (%) 96 07/29/16 08:00 Constitutional: Yes: No Distress, Calm Cardiovascular: Yes: Regular Rate and Rhythm Respiratory: Yes: Regular, CTA Bilaterally Gastrointestinal: Yes: Normal Bowel Sounds, Soft Musculoskeletal: Yes: WNL Extremities: Yes: WNL Neurological: Yes: Alert Psychiatric: Yes: Alert Labs: CBC, BMP 07/29/16 05:35 07/29/16 05:35 INR, PTT INR 1.17 (0.82-1.09) H 07/26/16 19:07 Assessment/Plan Problem List - Problems (1) Septic shock Code(s): A41.9 - SEPSIS, UNSPECIFIED ORGANISM R65.21 - SEVERE SEPSIS WITH SEPTIC SHOCK (2) HCAP (healthcare-associated pneumonia) Code(s): J18.9 - PNEUMONIA, UNSPECIFIED ORGANISM (3) UTI (urinary tract infection) Code(s): N39.0 - URINARY TRACT INFECTION, SITE NOT SPECIFIED (4) Diarrhea Code(s): R19.7 - DIARRHEA, UNSPECIFIED Qualifiers: Diarrhea type: unspecified type Qualified Code(s): R19.7 - Diarrhea, unspecified (5) Chest pain Code(s): R07.9 - CHEST PAIN, UNSPECIFIED (6) Anemia Code(s): D64.9 - ANEMIA, UNSPECIFIED Qualifiers: Anemia type: other cause Other causes of anemia: other cause, not classified Qualified Code(s): D64.89 - Other specified anemias (7) Chronic systolic CHF (congestive heart failure) Code(s): I50.22 - CHRONIC SYSTOLIC (CONGESTIVE) HEART FAILURE (8) CAD (coronary artery disease) Code(s): I25.10 - ATHSCL HEART DISEASE OF [place] CORONARY ARTERY W/O ANG PCTRS (9) Dehydration Code(s): E86.0 - DEHYDRATION (10) HTN (hypertension) Code(s): I10 - ESSENTIAL (PRIMARY) HYPERTENSION (11) Hypernatremia Code(s): E87.0 - HYPEROSMOLALITY AND HYPERNATREMIA patent can have multiple cause of this issues plan await for all cx results continue hydration rest as per primary continue to await for all other reports
--- NOTE | 2016-07-29 19:57 | PN ---
Progress Note, Physician History of Present Illness: patient doing well no new issues - Current Medication List Current Medications: Active Medications Acetaminophen (Tylenol -) 650 mg PO Q4H PRN PRN Reason: FEVER OR PAIN Ascorbic Acid (Vitamin C -) 500 mg PO TID [facility] Last Admin: 07/29/16 14:33 Dose: 500 mg Aspirin (Asa -) 81 mg PO BID [facility] Last Admin: 07/29/16 10:55 Dose: 81 mg Cyanocobalamin (Vitamin B12 -) 1,000 mcg PO DAILY [facility] Last Admin: 07/29/16 10:55 Dose: 1,000 mcg Enoxaparin Sodium (Lovenox -) 40 mg SQ DAILY [facility] Last Admin: 07/29/16 10:55 Dose: 40 mg Ferrous Sulfate (Feosol -) 325 mg PO TID [facility] Last Admin: 07/29/16 14:33 Dose: 325 mg Folic Acid (Folic Acid -) 1 mg PO DAILY [facility] Last Admin: 07/29/16 10:55 Dose: 1 mg Dextrose/Sodium Chloride (D5-1/2ns+40 Meq Kcl -) 1,000 mls @ 100 mls/hr IV ASDIR [facility] Last Admin: 07/29/16 10:58 Dose: 100 mls/hr Ertapenem 1 gm/ Sodium (Chloride) 50 mls @ 50 mls/hr IVPB DAILY [facility] PRN Reason: Protocol Insulin Aspart (Novolog Vial Sliding Scale -) 1 vial SQ ACHS [facility] PRN Reason: Protocol Last Admin: 07/29/16 17:25 Dose: Not Given Metronidazole (Flagyl -) 500 mg PO TID [facility] Last Admin: 07/29/16 14:34 Dose: 500 mg Multivitamins/Minerals/Vitamin C (Tab-A-Vit -) 1 tab PO DAILY [facility] Last Admin: 07/29/16 10:55 Dose: 1 tab Ondansetron HCl (Zofran Injection) 4 mg IVPB Q6H PRN PRN Reason: NAUSEA Potassium Phos/Sodium Phos (Phos-Nak Packet -) 1 packet PO TID [facility] Last Admin: 07/29/16 14:33 Dose: 1 packet Tamsulosin HCl (Flomax -) 0.4 mg PO DAILY@0830 [facility] Last Admin: 07/29/16 10:56 Dose: 0.4 mg - Objective Vital Signs: Vital Signs Temperature 97.7 F 07/29/16 14:00 Pulse Rate 58 L 07/29/16 14:00 Respiratory Rate 20 07/29/16 14:00 Blood Pressure 102/61 07/29/16 14:00 O2 Sat by Pulse Oximetry (%) 96 07/29/16 08:00 Constitutional: Yes: No Distress, Calm Cardiovascular: Yes: Regular Rate and Rhythm Respiratory: Yes: Regular, CTA Bilaterally Gastrointestinal: Yes: Normal Bowel Sounds, Soft Musculoskeletal: Yes: WNL Extremities: Yes: WNL Neurological: Yes: Alert, Oriented Psychiatric: Yes: Alert, Oriented Labs: CBC, BMP 07/29/16 05:35 07/29/16 05:35 INR, PTT INR 1.17 (0.82-1.09) H 07/26/16 19:07 Assessment/Plan Problem List - Problems (1) Septic shock Code(s): A41.9 - SEPSIS, UNSPECIFIED ORGANISM R65.21 - SEVERE SEPSIS WITH SEPTIC SHOCK (2) HCAP (healthcare-associated pneumonia) Code(s): J18.9 - PNEUMONIA, UNSPECIFIED ORGANISM (3) UTI (urinary tract infection) Code(s): N39.0 - URINARY TRACT INFECTION, SITE NOT SPECIFIED (4) Diarrhea Code(s): R19.7 - DIARRHEA, UNSPECIFIED Qualifiers: Diarrhea type: unspecified type Qualified Code(s): R19.7 - Diarrhea, unspecified (5) Chest pain Code(s): R07.9 - CHEST PAIN, UNSPECIFIED (6) Anemia Code(s): D64.9 - ANEMIA, UNSPECIFIED Qualifiers: Anemia type: other cause Other causes of anemia: other cause, not classified Qualified Code(s): D64.89 - Other specified anemias (7) Chronic systolic CHF (congestive heart failure) Code(s): I50.22 - CHRONIC SYSTOLIC (CONGESTIVE) HEART FAILURE (8) CAD (coronary artery disease) Code(s): I25.10 - ATHSCL HEART DISEASE OF [place] CORONARY ARTERY W/O ANG PCTRS (9) Dehydration Code(s): E86.0 - DEHYDRATION (10) HTN (hypertension) Code(s): I10 - ESSENTIAL (PRIMARY) HYPERTENSION (11) Hypernatremia Code(s): E87.0 - HYPEROSMOLALITY AND HYPERNATREMIA patient urine cx showing esbl uti plan cx results note abx changed to ertapenam
[2016-07-29] MEDS ORDERED: guaiFENesin 200 MG/10 ML 10 ML UNIT-DOSE CUPS PO PRN (21:53)
[2016-07-29] MEDS: ERTAPENEM SODIUM 1 GM in SODIUM CHLORIDE 50 ML IVPB SCH (22:00)
[2016-07-30] MEDS: INSULIN SLIDING SCALE (NOVOLOG) 1 VIAL SQ SCH ×4 (06:30→22:23)
[2016-07-30] MEDS ORDERED: PT OWN MED DRAWER 7, Y5N ONE ×3 (06:32→15:43)
[2016-07-30] MEDS: ASCORBIC ACID 500 MG TABLET (FP) PO SCH ×3 (06:34→22:23)
[2016-07-30] MEDS: metroNIDAZOLE 250 MG TABLET PO SCH ×3 (06:34→22:24)
[2016-07-30] MEDS: FERROUS SO4 325 MG TABLET (FP) PO SCH ×3 (06:34→22:23)
[2016-07-30] MEDS: NAPH,MB-DB/K PH,MBDB POWDER PACKET PO SCH ×3 (06:34→22:24)
[2016-07-30 07:17] LABS: BASOPHIL 0.7 % (0-2.0); MCH 33.5 pg (25.7-33.7); MCHC 32.6 g/dl (32.0-35.9); MEAN CELL VOLUME 102.7 fl (80-96); MEAN PLT VOLUME 8.6 fl (7.5-11.1); NEUTROPHILS 84.9 % (42.8-82.8); PLATELET COUNT 240 K/MM3 (134-434); RDW 15.5 % (11.9-15.9); WHITE BLOOD COUNT 11.6 K/mm3 (4.0-10.0)
[2016-07-30 07:41] LABS: CALCIUM 7.8 mg/dL (8.5-10.1); CREATININE 0.6 mg/dL (0.7-1.3); PHOSPHOROUS 2.1 mg/dL (2.5-4.9)
[2016-07-30 07:57] LABS: COCKROFT - GAULT 94.4
[2016-07-30] MEDS: ERTAPENEM SODIUM 1 GM in SODIUM CHLORIDE 50 ML IVPB SCH (11:06)
--- NOTE | 2016-07-30 11:26 | PN ---
Progress Note (short form) - Note Progress Note: s: no sob palps dizzy; still with achey chest wall pain at times o: Vital Signs Period Temp Pulse Resp BP Sys/Martino Pulse Ox Last 24 Hr 97.5 F-98.8 F 53-66 18-20 97-123/55-62 96 nad no jvd, cachectic rrr s1s2 no mrg cta bl nl eff awake, alert, appropriate abd nt nd pos bs no jaundice diaphoresis no le e/c/c mild chest wall tender to palp Current Medications Generic Name Dose Route Start Last Admin Trade Name Freq PRN Reason Stop Dose Admin Acetaminophen 650 mg 07/27/16 19:04 Tylenol - PO Q4H PRN FEVER OR PAIN Ascorbic Acid 500 mg 07/27/16 22:00 07/30/16 06:34 Vitamin C - PO 500 mg TID [facility] Administration Aspirin 81 mg 07/27/16 22:00 07/29/16 22:00 Asa - PO 81 mg BID [facility] Administration Cyanocobalamin 1,000 mcg 07/28/16 10:00 07/29/16 10:55 Vitamin B12 - PO 1,000 mcg DAILY [facility] Administration Enoxaparin Sodium 40 mg 07/28/16 10:00 07/29/16 10:55 Lovenox - SQ 40 mg DAILY [facility] Administration Ferrous Sulfate 325 mg 07/27/16 22:00 07/30/16 06:34 Feosol - PO 325 mg TID [facility] Administration Folic Acid 1 mg 07/28/16 10:00 07/29/16 10:55 Folic Acid - PO 1 mg DAILY [facility] Administration Guaifenesin 10 ml 07/29/16 21:53 07/29/16 22:00 Robitussin - PO 10 ml Q8H PRN Administration Dextrose/Sodium Chloride 1,000 mls @ 100 mls/hr 07/29/16 09:45 07/29/16 10:58 D5-1/2ns+40 Meq Kcl - IV 100 mls/hr ASDIR [facility] Administration Ertapenem 1 gm/ Sodium 50 mls @ 50 mls/hr 07/29/16 19:45 07/29/16 22:00 Chloride IVPB 50 mls/hr DAILY [facility] Administration Protocol Insulin Aspart 1 vial 07/27/16 22:00 07/30/16 06:30 Novolog Vial Sliding Scale - SQ Not Given ACHS [facility] Protocol Metronidazole 500 mg 07/27/16 22:00 07/30/16 06:34 Flagyl - PO 500 mg TID [facility] Administration Multivitamins/Minerals/Vitamin C 1 tab 07/28/16 10:00 07/29/16 10:55 Tab-A-Vit - PO 1 tab DAILY [facility] Administration Ondansetron HCl 4 mg 07/27/16 19:04 Zofran Injection IVPB Q6H PRN NAUSEA Potassium Phos/Sodium Phos 1 packet 07/27/16 22:00 07/30/16 06:34 Phos-Nak Packet - PO 1 packet TID [facility] Administration Tamsulosin HCl 0.4 mg 07/28/16 08:30 07/29/16 10:56 Flomax - PO 0.4 mg DAILY@0830 [facility] Administration CBC, BMP 07/30/16 05:35 07/30/16 05:35 ecg 07/26/16: sr 59, nl intervals, no ischemic changes cxr: no chf mibi 10/2011: large inferolateral scar, no ischemia, lvef 35% tele: sr/sb echo 07/2016: tds/limited views: grossly nl lv size/fcn, mild mr a/p: 80 m hx htn, hld, dm, cad/NH (seen on prior mibi), syst chf, sent from [facility] for infection/sepsis. sepsis: -bp improved with ivfs -cont abx per ID htn: -septic, bp on low side, holding htn meds hld: -stable, not on statin on home med list, outpt f/u cad/mi: -prior mibi showing infarct, no ischemia -no signs acs, trop neg x2 -current cp seems MSK after a recent fall -cont home asa chronic systolic chf: -no signs vol overload -monitor vol status with ivfs -echo here showing nl lvef -not on bb due to bradycardia bradycardia: -pt with known sinus tashia evaluated with holter on prior admit that showed no pathologic bradycardia -tele here with sr in 40s at times so have stopped bb, avoid meds that cause bradycardia
--- NOTE | 2016-07-30 11:46 | PN ---
Progress Note, Physician Chief Complaint: No New complaints History of Present Illness: 82 yrs old Male [place] resident, multiple medical co-morbidities H/O HTN, CAD, HFpEF , admitted with Hypotention elevated TWBC and +UA , ? infiltrated treated in ICU for sepsis U grew EcOlli and Group D Strept, C Diff +, now afebrile, normotensive - Current Medication List Current Medications: Active Medications Acetaminophen (Tylenol -) 650 mg PO Q4H PRN PRN Reason: FEVER OR PAIN Ascorbic Acid (Vitamin C -) 500 mg PO TID [facility] Last Admin: 07/30/16 06:34 Dose: 500 mg Aspirin (Asa -) 81 mg PO BID [facility] Last Admin: 07/29/16 22:00 Dose: 81 mg Cyanocobalamin (Vitamin B12 -) 1,000 mcg PO DAILY [facility] Last Admin: 07/29/16 10:55 Dose: 1,000 mcg Enoxaparin Sodium (Lovenox -) 40 mg SQ DAILY [facility] Last Admin: 07/29/16 10:55 Dose: 40 mg Ferrous Sulfate (Feosol -) 325 mg PO TID [facility] Last Admin: 07/30/16 06:34 Dose: 325 mg Folic Acid (Folic Acid -) 1 mg PO DAILY [facility] Last Admin: 07/29/16 10:55 Dose: 1 mg Guaifenesin (Robitussin -) 10 ml PO Q8H PRN Last Admin: 07/29/16 22:00 Dose: 10 ml Dextrose/Sodium Chloride (D5-1/2ns+40 Meq Kcl -) 1,000 mls @ 100 mls/hr IV ASDIR [facility] Last Admin: 07/29/16 10:58 Dose: 100 mls/hr Ertapenem 1 gm/ Sodium (Chloride) 50 mls @ 50 mls/hr IVPB DAILY [facility] PRN Reason: Protocol Last Admin: 07/29/16 22:00 Dose: 50 mls/hr Insulin Aspart (Novolog Vial Sliding Scale -) 1 vial SQ ACHS [facility] PRN Reason: Protocol Last Admin: 07/30/16 06:30 Dose: Not Given Metronidazole (Flagyl -) 500 mg PO TID [facility] Last Admin: 07/30/16 06:34 Dose: 500 mg Multivitamins/Minerals/Vitamin C (Tab-A-Vit -) 1 tab PO DAILY [facility] Last Admin: 07/29/16 10:55 Dose: 1 tab Ondansetron HCl (Zofran Injection) 4 mg IVPB Q6H PRN PRN Reason: NAUSEA Potassium Chloride (Potassium Chloride Oral Liquid) 30 meq PO ONCE ONE Stop: 07/30/16 11:39 Potassium Phos/Sodium Phos (Phos-Nak Packet -) 1 packet PO TID [facility] Last Admin: 07/30/16 06:34 Dose: 1 packet Tamsulosin HCl (Flomax -) 0.4 mg PO DAILY@0830 [facility] Last Admin: 07/29/16 10:56 Dose: 0.4 mg - Objective Vital Signs: Vital Signs Temperature 97.6 F 07/30/16 05:00 Pulse Rate 53 L 07/30/16 05:00 Respiratory Rate 20 07/30/16 05:00 Blood Pressure 108/55 07/30/16 05:00 O2 Sat by Pulse Oximetry (%) 96 07/29/16 21:00 Constitutional: Yes: No Distress, Cachectic Eyes: Yes: Conjunctiva Clear HENT: Yes: WNL, Atraumatic, Normocephalic Neck: Yes: WNL, Supple, Trachea Midline Cardiovascular: Yes: WNL, Regular Rate and Rhythm, Murmur. No: JVD Respiratory: Yes: Regular, Rales Gastrointestinal: Yes: WNL, Normal Bowel Sounds, Soft Genitourinary: No: Anuria, Bladder Distention Extremities: No: Calf Tenderness Edema: RUE: 1+, LLE: 1+ Peripheral Pulses WNL: Yes Neurological: Yes: Alert Labs: CBC, BMP 07/30/16 05:35 07/30/16 05:35 INR, PTT INR 1.17 (0.82-1.09) H 07/26/16 19:07 - ....Imaging Chest X-ray: Image Reviewed (Bibasilar atelactasis) Problem List - Problems (1) C. difficile colitis Assessment/Plan: On PO Flagyl cont same, contact isolation. Code(s): A04.7 - ENTEROCOLITIS DUE TO CLOSTRIDIUM DIFFICILE (2) HCAP (healthcare-associated pneumonia) Assessment/Plan: So far all cultures are -ve except Urine Cont Ertapenam. Code(s): J18.9 - PNEUMONIA, UNSPECIFIED ORGANISM (3) Septic shock Assessment/Plan: Multpli etiology C Diff UTI Pneumonia now normotensive afebrile. Code(s): A41.9 - SEPSIS, UNSPECIFIED ORGANISM R65.21 - SEVERE SEPSIS WITH SEPTIC SHOCK (4) Hypokalemia Assessment/Plan: Repleted F/U BMP Code(s): E87.6 - HYPOKALEMIA (5) Diabetes mellitus type 2 in nonobese Assessment/Plan: Cont current Insulin coverage, optimize as per accu check. Code(s): E11.9 - TYPE 2 DIABETES MELLITUS WITHOUT COMPLICATIONS (6) UTI (urinary tract infection) Assessment/Plan: On Entrapenam Code(s): N39.0 - URINARY TRACT INFECTION, SITE NOT SPECIFIED (7) Anemia Assessment/Plan: H/H are stable F/U H/H Code(s): D64.9 - ANEMIA, UNSPECIFIED Qualifiers: Anemia type: other cause Other causes of anemia: other cause, not classified Qualified Code(s): D64.89 - Other specified anemias (8) CAD (coronary artery disease) Assessment/Plan: Chronic no active issue cont home meds. Code(s): I25.10 - ATHSCL HEART DISEASE OF [place] CORONARY ARTERY W/O ANG PCTRS
[2016-07-30] MEDS: TAMSULOSIN HCL 0.4 MG CAP.ER.24H (FP) PO SCH (11:47)
[2016-07-30] MEDS: ASPIRIN 81 MG CHEWABLE TABLETS PO SCH ×2 (11:47→22:23)
[2016-07-30] MEDS: D5-1/2NS+40 MEQ KCL - 1,000 ML IV SCH (11:48)
[2016-07-30] MEDS: FOLIC ACID 1 MG TABLET (FP) PO SCH (11:48)
[2016-07-30] MEDS: MULTIVITAMINS (DAILY MVI) TABLET (FP) PO SCH (11:48)
[2016-07-30] MEDS: CYANOCOBALAMIN 1,000 MCG TABLET (FP) PO SCH (11:48)
[2016-07-30] MEDS: ENOXAPARIN NA (PORCINE) 40 MG/0.4 ML DISP.SYRIN SQ SCH (11:49)
--- NOTE | 2016-07-30 11:57 | PN ---
Progress Note, Physician History of Present Illness: pulmonary awake,-resp distress,less congested. - Current Medication List Current Medications: Active Medications Acetaminophen (Tylenol -) 650 mg PO Q4H PRN PRN Reason: FEVER OR PAIN Ascorbic Acid (Vitamin C -) 500 mg PO TID [facility] Last Admin: 07/30/16 06:34 Dose: 500 mg Aspirin (Asa -) 81 mg PO BID [facility] Last Admin: 07/30/16 11:47 Dose: 81 mg Cyanocobalamin (Vitamin B12 -) 1,000 mcg PO DAILY [facility] Last Admin: 07/30/16 11:48 Dose: 1,000 mcg Enoxaparin Sodium (Lovenox -) 40 mg SQ DAILY [facility] Last Admin: 07/30/16 11:49 Dose: 40 mg Ferrous Sulfate (Feosol -) 325 mg PO TID [facility] Last Admin: 07/30/16 06:34 Dose: 325 mg Folic Acid (Folic Acid -) 1 mg PO DAILY [facility] Last Admin: 07/30/16 11:48 Dose: 1 mg Guaifenesin (Robitussin -) 10 ml PO Q8H PRN Last Admin: 07/29/16 22:00 Dose: 10 ml Dextrose/Sodium Chloride (D5-1/2ns+40 Meq Kcl -) 1,000 mls @ 100 mls/hr IV ASDIR [facility] Last Admin: 07/30/16 11:48 Dose: 100 mls/hr Ertapenem 1 gm/ Sodium (Chloride) 50 mls @ 50 mls/hr IVPB DAILY [facility] PRN Reason: Protocol Last Admin: 07/29/16 22:00 Dose: 50 mls/hr Insulin Aspart (Novolog Vial Sliding Scale -) 1 vial SQ ACHS [facility] PRN Reason: Protocol Last Admin: 07/30/16 11:00 Dose: Not Given Metronidazole (Flagyl -) 500 mg PO TID [facility] Last Admin: 07/30/16 06:34 Dose: 500 mg Multivitamins/Minerals/Vitamin C (Tab-A-Vit -) 1 tab PO DAILY [facility] Last Admin: 07/30/16 11:48 Dose: 1 tab Ondansetron HCl (Zofran Injection) 4 mg IVPB Q6H PRN PRN Reason: NAUSEA Potassium Chloride (Potassium Chloride Oral Liquid) 30 meq PO ONCE ONE Stop: 07/30/16 11:39 Potassium Phos/Sodium Phos (Phos-Nak Packet -) 1 packet PO TID [facility] Last Admin: 07/30/16 06:34 Dose: 1 packet Tamsulosin HCl (Flomax -) 0.4 mg PO DAILY@0830 [facility] Last Admin: 07/30/16 11:47 Dose: 0.4 mg - Objective Vital Signs: Vital Signs Temperature 97.6 F 07/30/16 05:00 Pulse Rate 53 L 07/30/16 05:00 Respiratory Rate 20 07/30/16 05:00 Blood Pressure 108/55 07/30/16 05:00 O2 Sat by Pulse Oximetry (%) 96 07/29/16 21:00 Constitutional: Yes: Calm, Thin Eyes: Yes: WNL HENT: Yes: WNL Neck: Yes: WNL Cardiovascular: Yes: Regular Rate and Rhythm, S1, S2 Respiratory: Yes: Rhonchi (scattered gadiel rhonchi) Gastrointestinal: Yes: Normal Bowel Sounds, Soft Extremities: Yes: WNL Edema: No Labs: CBC, BMP 07/30/16 05:35 07/30/16 05:35 INR, PTT INR 1.17 (0.82-1.09) H 07/26/16 19:07 Assessment/Plan Problem List - Problems (1) Septic shock Assessment/Plan: Code(s): A41.9 - SEPSIS, UNSPECIFIED ORGANISM R65.21 - SEVERE SEPSIS WITH SEPTIC SHOCK (2) HCAP (healthcare-associated pneumonia) Assessment/Plan: Code(s): J18.9 - PNEUMONIA, UNSPECIFIED ORGANISM (3) UTI (urinary tract infection) Assessment/Plan: Code(s): N39.0 - URINARY TRACT INFECTION, SITE NOT SPECIFIED (4) Diarrhea Assessment/Plan: Code(s): R19.7 - DIARRHEA, UNSPECIFIED Qualifiers: Diarrhea type: unspecified type Qualified Code(s): R19.7 - Diarrhea, unspecified (5) Chest pain Assessment/Plan: Code(s): R07.9 - CHEST PAIN, UNSPECIFIED (6) Anemia Assessment/Plan: Code(s): D64.9 - ANEMIA, UNSPECIFIED Qualifiers: Anemia type: other cause Other causes of anemia: other cause, not classified Qualified Code(s): D64.89 - Other specified anemias (7) Chronic systolic CHF (congestive heart failure) Assessment/Plan: Code(s): I50.22 - CHRONIC SYSTOLIC (CONGESTIVE) HEART FAILURE (8) CAD (coronary artery disease) Code(s): I25.10 - ATHSCL HEART DISEASE OF [place] CORONARY ARTERY W/O ANG PCTRS (9) Dehydration Assessment/Plan: Code(s): E86.0 - DEHYDRATION (10) HTN (hypertension) Assessment/Plan: Code(s): I10 - ESSENTIAL (PRIMARY) HYPERTENSION (11) Hypernatremia Assessment/Plan: Code(s): E87.0 - HYPEROSMOLALITY AND HYPERNATREMIA PLAN: IVF Cont ABX per ID inhaled bronchodilators O2 as needed VTE prophylaxis Strict I&O PO as tolerated replete bhupinder GRAY
[2016-07-30] MEDS ORDERED: POTASSIUM CHLORIDE ORAL LIQUID 20 MEQ/15 ML PO ONE (12:30)
[2016-07-31] MEDS ORDERED: PT OWN MED DRAWER 7, Y5N ONE (05:25)
[2016-07-31] MEDS: NAPH,MB-DB/K PH,MBDB POWDER PACKET PO SCH ×3 (05:27→22:47)
[2016-07-31] MEDS: metroNIDAZOLE 250 MG TABLET PO SCH ×3 (05:27→16:03)
[2016-07-31] MEDS: ASCORBIC ACID 500 MG TABLET (FP) PO SCH ×3 (05:27→22:47)
[2016-07-31] MEDS: FERROUS SO4 325 MG TABLET (FP) PO SCH ×3 (05:27→22:46)
[2016-07-31] MEDS: D5-1/2NS+40 MEQ KCL - 1,000 ML IV SCH ×2 (05:35→09:45)
[2016-07-31] MEDS: INSULIN SLIDING SCALE (NOVOLOG) 1 VIAL SQ SCH ×4 (06:15→22:47)
[2016-07-31 08:21] LABS: BASOPHIL 0.4 % (0-2.0); EOSINOPHIL 1.7 % (0-4.5); MCH 34.2 pg (25.7-33.7); MCHC 33.6 g/dl (32.0-35.9); MEAN CELL VOLUME 101.7 fl (80-96); MEAN PLT VOLUME 8.6 fl (7.5-11.1); NEUTROPHILS 80.6 % (42.8-82.8); PLATELET COUNT 264 K/MM3 (134-434); RDW 15.6 % (11.9-15.9); WHITE BLOOD COUNT 10.6 K/mm3 (4.0-10.0)
[2016-07-31] MEDS: ERTAPENEM SODIUM 1 GM in SODIUM CHLORIDE 50 ML IVPB SCH (09:44)
[2016-07-31] MEDS: FOLIC ACID 1 MG TABLET (FP) PO SCH (09:45)
[2016-07-31] MEDS: TAMSULOSIN HCL 0.4 MG CAP.ER.24H (FP) PO SCH (09:45)
[2016-07-31] MEDS: MULTIVITAMINS (DAILY MVI) TABLET (FP) PO SCH (09:45)
[2016-07-31] MEDS: CYANOCOBALAMIN 1,000 MCG TABLET (FP) PO SCH (09:46)
[2016-07-31] MEDS: ASPIRIN 81 MG CHEWABLE TABLETS PO SCH ×2 (09:46→22:46)
[2016-07-31] MEDS: ENOXAPARIN NA (PORCINE) 40 MG/0.4 ML DISP.SYRIN SQ SCH (09:46)
[2016-07-31 09:59] LABS: ALBUMIN 1.5 g/dl (3.4-5.0); ALK PHOS 79 U/L (45-117); ANION GAP 7 (8-16); BILIRUBIN,TOTAL 0.3 mg/dL (0.2-1.0); CALCIUM 7.9 mg/dL (8.5-10.1); CO2 17 mmol/L (21-32); COCKROFT - GAULT 94.65; CREATININE 0.6 mg/dL (0.7-1.3); GLUCOSE,RANDOM 90 mg/dL (74-106); SGOT/AST 9 U/L (15-37); SGPT/ALT 9 U/L (12-78); TOT PROT 5.2 g/dl (6.4-8.2)
--- NOTE | 2016-07-31 10:57 | PN ---
Progress Note, Physician History of Present Illness: patient doing well no new issues - Current Medication List Current Medications: Active Medications Acetaminophen (Tylenol -) 650 mg PO Q4H PRN PRN Reason: FEVER OR PAIN Ascorbic Acid (Vitamin C -) 500 mg PO TID [facility] Last Admin: 07/31/16 05:27 Dose: 500 mg Aspirin (Asa -) 81 mg PO BID [facility] Last Admin: 07/31/16 09:46 Dose: 81 mg Cyanocobalamin (Vitamin B12 -) 1,000 mcg PO DAILY [facility] Last Admin: 07/31/16 09:46 Dose: 1,000 mcg Enoxaparin Sodium (Lovenox -) 40 mg SQ DAILY [facility] Last Admin: 07/31/16 09:46 Dose: 40 mg Ferrous Sulfate (Feosol -) 325 mg PO TID [facility] Last Admin: 07/31/16 05:27 Dose: 325 mg Folic Acid (Folic Acid -) 1 mg PO DAILY [facility] Last Admin: 07/31/16 09:45 Dose: 1 mg Guaifenesin (Robitussin -) 10 ml PO Q8H PRN Last Admin: 07/29/16 22:00 Dose: 10 ml Dextrose/Sodium Chloride (D5-1/2ns+40 Meq Kcl -) 1,000 mls @ 100 mls/hr IV ASDIR [facility] Last Admin: 07/31/16 09:45 Dose: 100 mls/hr Ertapenem 1 gm/ Sodium (Chloride) 50 mls @ 50 mls/hr IVPB DAILY [facility] PRN Reason: Protocol Last Admin: 07/31/16 09:44 Dose: 50 mls/hr Insulin Aspart (Novolog Vial Sliding Scale -) 1 vial SQ ACHS [facility] PRN Reason: Protocol Last Admin: 07/31/16 06:15 Dose: Not Given Metronidazole (Flagyl -) 500 mg PO TID [facility] Last Admin: 07/31/16 06:40 Dose: 500 mg Multivitamins/Minerals/Vitamin C (Tab-A-Vit -) 1 tab PO DAILY [facility] Last Admin: 07/31/16 09:45 Dose: 1 tab Ondansetron HCl (Zofran Injection) 4 mg IVPB Q6H PRN PRN Reason: NAUSEA Potassium Phos/Sodium Phos (Phos-Nak Packet -) 1 packet PO TID [facility] Last Admin: 07/31/16 05:27 Dose: 1 packet Tamsulosin HCl (Flomax -) 0.4 mg PO DAILY@0830 [facility] Last Admin: 07/31/16 09:45 Dose: 0.4 mg - Objective Vital Signs: Vital Signs Temperature 97.8 F 07/31/16 06:00 Pulse Rate 54 L 07/31/16 06:00 Respiratory Rate 20 07/31/16 06:00 Blood Pressure 98/48 07/31/16 06:00 O2 Sat by Pulse Oximetry (%) 95 07/30/16 21:00 Constitutional: Yes: No Distress, Calm Neck: Yes: Supple Cardiovascular: Yes: S1, S2 Respiratory: Yes: Regular, CTA Bilaterally Gastrointestinal: Yes: Normal Bowel Sounds, Soft Musculoskeletal: Yes: WNL Extremities: Yes: WNL Neurological: Yes: Alert Psychiatric: Yes: Alert, Oriented Labs: CBC, BMP 07/31/16 05:43 07/31/16 05:43 INR, PTT INR 1.17 (0.82-1.09) H 07/26/16 19:07 Assessment/Plan Problem List - Problems (1) Septic shock Code(s): A41.9 - SEPSIS, UNSPECIFIED ORGANISM R65.21 - SEVERE SEPSIS WITH SEPTIC SHOCK (2) HCAP (healthcare-associated pneumonia) Code(s): J18.9 - PNEUMONIA, UNSPECIFIED ORGANISM (3) UTI (urinary tract infection) Code(s): N39.0 - URINARY TRACT INFECTION, SITE NOT SPECIFIED (4) Diarrhea Code(s): R19.7 - DIARRHEA, UNSPECIFIED Qualifiers: Diarrhea type: unspecified type Qualified Code(s): R19.7 - Diarrhea, unspecified (5) Chest pain Code(s): R07.9 - CHEST PAIN, UNSPECIFIED (6) Anemia Code(s): D64.9 - ANEMIA, UNSPECIFIED Qualifiers: Anemia type: other cause Other causes of anemia: other cause, not classified Qualified Code(s): D64.89 - Other specified anemias (7) Chronic systolic CHF (congestive heart failure) Code(s): I50.22 - CHRONIC SYSTOLIC (CONGESTIVE) HEART FAILURE (8) CAD (coronary artery disease) Code(s): I25.10 - ATHSCL HEART DISEASE OF [place] CORONARY ARTERY W/O ANG PCTRS (9) Dehydration Code(s): E86.0 - DEHYDRATION (10) HTN (hypertension) Code(s): I10 - ESSENTIAL (PRIMARY) HYPERTENSION (11) Hypernatremia Code(s): E87.0 - HYPEROSMOLALITY AND HYPERNATREMIA patient urine cx showing esbl uti plan cx results note continue ertapenam
--- NOTE | 2016-07-31 12:46 | PN ---
Progress Note (short form) - Note Progress Note: No pain No fever O/E Vital Signs Period Temp Pulse Resp BP Sys/Martino Pulse Ox Last 24 Hr 97.2 F-97.8 F 53-84 20-20 98-162/48-75 95 Heart regular Lungs clear Abd soft Ext no edema Current Medications Acetaminophen (Tylenol -) 650 mg PO Q4H PRN PRN Reason: FEVER OR PAIN Ascorbic Acid (Vitamin C -) [address] [facility] Last Admin: 07/31/16 05:27 Dose: 500 mg Aspirin (Asa -) [address] [facility] Last Admin: 07/31/16 09:46 Dose: 81 mg Cyanocobalamin (Vitamin B12 -) 1,[address] [facility] Last Admin: 07/31/16 09:46 Dose: 1,000 mcg Enoxaparin Sodium (Lovenox -) [address] [facility] Last Admin: 07/31/16 09:46 Dose: 40 mg Ferrous Sulfate (Feosol -) [address] [facility] Last Admin: 07/31/16 05:27 Dose: 325 mg Folic Acid (Folic Acid -) [address] [facility] Last Admin: 07/31/16 09:45 Dose: 1 mg Guaifenesin (Robitussin -) 10 ml PO Q8H PRN Last Admin: 07/29/16 22:00 Dose: 10 ml Dextrose/Sodium Chloride (D5-1/2ns+40 Meq Kcl -) 1,000 mls @ 100 mls/hr IV ASDIR [facility] Last Admin: 07/31/16 09:45 Dose: 100 mls/hr Ertapenem 1 gm/ Sodium (Chloride) 50 mls @ 50 mls/hr IVPB DAILY [facility] PRN Reason: Protocol Last Admin: 07/31/16 09:44 Dose: 50 mls/hr Insulin Aspart (Novolog Vial Sliding Scale -) [address] [facility] PRN Reason: Protocol Last Admin: 07/31/16 06:15 Dose: Not Given Metronidazole (Flagyl -) [address] [facility] Last Admin: 07/31/16 06:40 Dose: 500 mg Multivitamins/Minerals/Vitamin C (Tab-A-Vit -) [address] [facility] Last Admin: 07/31/16 09:45 Dose: 1 tab Ondansetron HCl (Zofran Injection) 4 mg IVPB Q6H PRN PRN Reason: NAUSEA Potassium Phos/Sodium Phos (Phos-Nak Packet -) [address] [facility] Last Admin: 07/31/16 05:27 Dose: 1 packet Tamsulosin HCl (Flomax -) 0.4 mg PO DAILY@0830 [facility] Last Admin: 07/31/16 09:45 Dose: 0.4 mg Laboratory Results - last 24 hr 07/30/16 07/30/16 07/31/16 13:00 22:22 05:43 WBC 10.6 H RBC 2.64 L Hgb 9.0 L Hct 26.9 L MCV 101.7 H MCHC 33.6 RDW 15.6 Plt Count 264 MPV 8.6 Neutrophils % 80.6 Lymphocytes % 11.6 D Monocytes % 5.7 Eosinophils % 1.7 Basophils % 0.4 Sodium Potassium Chloride Carbon Dioxide Anion Gap BUN Creatinine Creat Clearance w eGFR POC Glucometer 108 Random Glucose Calcium Magnesium 1.9 Total Bilirubin AST ALT Alkaline Phosphatase Total Protein Albumin 07/31/16 07/31/16 05:43 05:57 WBC RBC Hgb Hct MCV MCHC RDW Plt Count MPV Neutrophils % Lymphocytes % Monocytes % Eosinophils % Basophils % Sodium 147 H Potassium 3.8 Chloride 123 H Carbon Dioxide 17 L Anion Gap 7 L BUN 16 Creatinine 0.6 L Creat Clearance w eGFR > 60 POC Glucometer 96 Random Glucose 90 D Calcium 7.9 L Magnesium Total Bilirubin 0.3 AST 9 L ALT 9 L D Alkaline Phosphatase 79 Total Protein 5.2 L Albumin 1.5 L ssessment/Plan (1) Septic shock Assessment/Plan: resolved Code(s): A41.9 - SEPSIS, UNSPECIFIED ORGANISM R65.21 - SEVERE SEPSIS WITH SEPTIC SHOCK (3) UTI (urinary tract infection) Assessment/Plan: cont present care, presently afebrile Code(s): N39.0 - URINARY TRACT INFECTION, SITE NOT SPECIFIED (4) C diff colitis Assessment/Plan: -continue oral flagyl Code(s): R19.7 - DIARRHEA, UNSPECIFIED Qualifiers: Diarrhea type: unspecified type Qualified Code(s): R19.7 - Diarrhea, unspecified (6) Anemia Assessment/Plan: -chronic and stable Code(s): D64.9 - ANEMIA, UNSPECIFIED Qualifiers: Anemia type: other cause Other causes of anemia: other cause, not classified Qualified Code(s): D64.89 - Other specified anemias (7) Chronic systolic CHF (congestive heart failure) Assessment/Plan: -not in exacerbation -continue hydration for sepsis Code(s): I50.22 - CHRONIC SYSTOLIC (CONGESTIVE) HEART FAILURE (8) CAD (coronary artery disease) -continue home regimen -cardiology following Code(s): I25.10 - ATHSCL HEART DISEASE OF [place] CORONARY ARTERY W/O ANG PCTRS (10) HTN (hypertension) Assessment/Plan: -normotensive -continue holding toprol xl Code(s): I10 - ESSENTIAL (PRIMARY) HYPERTENSION (11) Hypernatremia Assessment/Plan: -stable -continue D5 1/NS Code(s): E87.0 - HYPEROSMOLALITY AND HYPERNATREMIA (12) FEN -replace magnesium, potassium, and phosphorus
--- NOTE | 2016-07-31 13:28 | PN ---
Progress Note (short form) - Note Progress Note: s: no sob palps dizzy; still with achey chest wall pain at times. remains on IVF o: Current Medications Acetaminophen (Tylenol -) 650 mg PO Q4H PRN PRN Reason: FEVER OR PAIN Ascorbic Acid (Vitamin C -) 500 mg PO TID [facility] Last Admin: 07/31/16 05:27 Dose: 500 mg Aspirin (Asa -) 81 mg PO BID [facility] Last Admin: 07/31/16 09:46 Dose: 81 mg Cyanocobalamin (Vitamin B12 -) 1,000 mcg PO DAILY [facility] Last Admin: 07/31/16 09:46 Dose: 1,000 mcg Enoxaparin Sodium (Lovenox -) 40 mg SQ DAILY [facility] Last Admin: 07/31/16 09:46 Dose: 40 mg Ferrous Sulfate (Feosol -) 325 mg PO TID [facility] Last Admin: 07/31/16 05:27 Dose: 325 mg Folic Acid (Folic Acid -) 1 mg PO DAILY [facility] Last Admin: 07/31/16 09:45 Dose: 1 mg Guaifenesin (Robitussin -) 10 ml PO Q8H PRN Last Admin: 07/29/16 22:00 Dose: 10 ml Dextrose/Sodium Chloride (D5-1/2ns+40 Meq Kcl -) 1,000 mls @ 100 mls/hr IV ASDIR [facility] Last Admin: 07/31/16 09:45 Dose: 100 mls/hr Ertapenem 1 gm/ Sodium (Chloride) 50 mls @ 50 mls/hr IVPB DAILY [facility] PRN Reason: Protocol Last Admin: 07/31/16 09:44 Dose: 50 mls/hr Insulin Aspart (Novolog Vial Sliding Scale -) 1 vial SQ ACHS [facility] PRN Reason: Protocol Last Admin: 07/31/16 13:06 Dose: Not Given Metronidazole (Flagyl -) 500 mg PO TID [facility] Last Admin: 07/31/16 06:40 Dose: 500 mg Multivitamins/Minerals/Vitamin C (Tab-A-Vit -) 1 tab PO DAILY [facility] Last Admin: 07/31/16 09:45 Dose: 1 tab Ondansetron HCl (Zofran Injection) 4 mg IVPB Q6H PRN PRN Reason: NAUSEA Potassium Phos/Sodium Phos (Phos-Nak Packet -) 1 packet PO TID [facility] Last Admin: 07/31/16 05:27 Dose: 1 packet Tamsulosin HCl (Flomax -) 0.4 mg PO DAILY@0830 [facility] Last Admin: 07/31/16 09:45 Dose: 0.4 mg Vital Signs - 24 hr 07/30/16 07/30/16 07/30/16 14:00 18:00 21:00 Temperature 97.5 F L 97.2 F L Pulse Rate 84 65 Respiratory 20 20 20 Rate Blood Pressure 162/69 122/71 O2 Sat by Pulse 95 Oximetry (%) 07/30/16 07/31/16 07/31/16 22:00 02:07 06:00 Temperature 97.8 F 97.5 F L 97.8 F Pulse Rate 53 L 54 L 54 L Respiratory 20 20 20 Rate Blood Pressure 128/75 105/55 98/48 O2 Sat by Pulse Oximetry (%) Intake & Output 07/29/16 07/30/16 07/31/16 08/01/16 07:59 07:59 07:59 07:59 Intake Total 360 1660 1440 Balance 360 1660 1440 Weight 152 lb 6.4 oz 152 lb 12.8 oz nad no jvd, cachectic rrr s1s2 no mrg bibasilar crackles, nl eff awake, alert, appropriate abd nt nd pos bs no jaundice diaphoresis no le e/c/c mild chest wall tender to palp CBC, BMP 07/31/16 05:43 07/31/16 05:43 ecg 07/26/16: sr 59, nl intervals, no ischemic changes cxr: no chf mibi 10/2011: large inferolateral scar, no ischemia, lvef 35% tele: sr/sb frequent ectopy. echo 07/2016: tds/limited views: grossly nl lv size/fcn, mild mr a/p: 81 m hx htn, hld, dm, cad/VT (seen on prior mibi), syst chf, sent from [place] for infection/sepsis. sepsis: -bp improved with ivfs -cont abx per ID htn: -septic, bp on low side, holding htn meds hld: -stable, not on statin on home med list, outpt f/u cad/mi: -prior mibi showing infarct, no ischemia -no signs acs, trop neg x2 -current cp seems MSK after a recent fall -cont home asa chronic systolic chf: -no signs vol overload -monitor vol status with ivfs -echo here showing nl lvef -not on bb due to bradycardia bradycardia: -pt with known sinus tashia evaluated with holter on prior admit that showed no pathologic bradycardia -tele here with sr in 40s at times so have stopped bb, avoid meds that cause bradycardia
--- NOTE | 2016-07-31 13:55 | PN ---
Progress Note (short form) - Note Progress Note: NAD on NC O2. Some intermittent musculoskeletal type discomfort. Intake & Output 07/28/16 07/29/16 07/30/16 07/31/16 23:59 23:59 23:59 23:59 Intake Total 5470 339 8330 1320 Balance 1729 054 2938 1320 Weight 152 lb 6.4 oz 152 lb 12.8 oz Last Vital Signs Temp Pulse Resp BP Pulse Ox 97.8 F 54 L 20 98/48 95 07/31/16 06:00 07/31/16 06:00 07/31/16 06:00 07/31/16 06:00 07/30/16 21:00 Active Medications Acetaminophen (Tylenol -) 650 mg PO Q4H PRN PRN Reason: FEVER OR PAIN Ascorbic Acid (Vitamin C -) 500 mg PO TID [facility] Last Admin: 07/31/16 05:27 Dose: 500 mg Aspirin (Asa -) 81 mg PO BID [facility] Last Admin: 07/31/16 09:46 Dose: 81 mg Cyanocobalamin (Vitamin B12 -) 1,000 mcg PO DAILY [facility] Last Admin: 07/31/16 09:46 Dose: 1,000 mcg Enoxaparin Sodium (Lovenox -) 40 mg SQ DAILY [facility] Last Admin: 07/31/16 09:46 Dose: 40 mg Ferrous Sulfate (Feosol -) 325 mg PO TID [facility] Last Admin: 07/31/16 05:27 Dose: 325 mg Folic Acid (Folic Acid -) 1 mg PO DAILY [facility] Last Admin: 07/31/16 09:45 Dose: 1 mg Guaifenesin (Robitussin -) 10 ml PO Q8H PRN Last Admin: 07/29/16 22:00 Dose: 10 ml Dextrose/Sodium Chloride (D5-1/2ns+40 Meq Kcl -) 1,000 mls @ 100 mls/hr IV ASDIR [facility] Last Admin: 07/31/16 09:45 Dose: 100 mls/hr Ertapenem 1 gm/ Sodium (Chloride) 50 mls @ 50 mls/hr IVPB DAILY [facility] PRN Reason: Protocol Last Admin: 07/31/16 09:44 Dose: 50 mls/hr Insulin Aspart (Novolog Vial Sliding Scale -) 1 vial SQ ACHS [facility] PRN Reason: Protocol Last Admin: 07/31/16 13:06 Dose: Not Given Metronidazole (Flagyl -) 500 mg PO TID [facility] Last Admin: 07/31/16 06:40 Dose: 500 mg Multivitamins/Minerals/Vitamin C (Tab-A-Vit -) 1 tab PO DAILY [facility] Last Admin: 07/31/16 09:45 Dose: 1 tab Ondansetron HCl (Zofran Injection) 4 mg IVPB Q6H PRN PRN Reason: NAUSEA Potassium Phos/Sodium Phos (Phos-Nak Packet -) 1 packet PO TID [facility] Last Admin: 07/31/16 05:27 Dose: 1 packet Tamsulosin HCl (Flomax -) 0.4 mg PO DAILY@0830 [facility] Last Admin: 07/31/16 09:45 Dose: 0.4 mg Constitutional: Yes: NAD, Thin Eyes: Yes: WNL HENT: Yes: WNL Neck: Yes: WNL Cardiovascular: Yes: Regular Rate and Rhythm, S1, S2 Respiratory: Yes: Bilateral scattered Rhonchi Gastrointestinal: Yes: Normal Bowel Sounds, Soft Extremities: Yes: WNL Edema: No Labs: Laboratory Results - last 24 hr 07/30/16 07/30/16 07/31/16 13:00 22:22 05:43 WBC 10.6 H RBC 2.64 L Hgb 9.0 L Hct 26.9 L MCV 101.7 H MCHC 33.6 RDW 15.6 Plt Count 264 MPV 8.6 Neutrophils % 80.6 Lymphocytes % 11.6 D Monocytes % 5.7 Eosinophils % 1.7 Basophils % 0.4 Sodium Potassium Chloride Carbon Dioxide Anion Gap BUN Creatinine Creat Clearance w eGFR POC Glucometer 108 Random Glucose Calcium Magnesium 1.9 Total Bilirubin AST ALT Alkaline Phosphatase Total Protein Albumin 07/31/16 07/31/16 07/31/16 05:43 05:57 12:39 WBC RBC Hgb Hct MCV MCHC RDW Plt Count MPV Neutrophils % Lymphocytes % Monocytes % Eosinophils % Basophils % Sodium 147 H Potassium 3.8 Chloride 123 H Carbon Dioxide 17 L Anion Gap 7 L BUN 16 Creatinine 0.6 L Creat Clearance w eGFR > 60 POC Glucometer 96 114 Random Glucose 90 D Calcium 7.9 L Magnesium Total Bilirubin 0.3 AST 9 L ALT 9 L D Alkaline Phosphatase 79 Total Protein 5.2 L Albumin 1.5 L Assessment/Plan Problem List - Problems (1) Septic shock Assessment/Plan: Code(s): A41.9 - SEPSIS, UNSPECIFIED ORGANISM R65.21 - SEVERE SEPSIS WITH SEPTIC SHOCK (2) HCAP (healthcare-associated pneumonia) Assessment/Plan: Code(s): J18.9 - PNEUMONIA, UNSPECIFIED ORGANISM (3) UTI (urinary tract infection) Assessment/Plan: Code(s): N39.0 - URINARY TRACT INFECTION, SITE NOT SPECIFIED (4) Diarrhea Assessment/Plan: Code(s): R19.7 - DIARRHEA, UNSPECIFIED Qualifiers: Diarrhea type: unspecified type Qualified Code(s): R19.7 - Diarrhea, unspecified (5) Chest pain Assessment/Plan: Code(s): R07.9 - CHEST PAIN, UNSPECIFIED (6) Anemia Assessment/Plan: Code(s): D64.9 - ANEMIA, UNSPECIFIED Qualifiers: Anemia type: other cause Other causes of anemia: other cause, not classified Qualified Code(s): D64.89 - Other specified anemias (7) Chronic systolic CHF (congestive heart failure) Assessment/Plan: Code(s): I50.22 - CHRONIC SYSTOLIC (CONGESTIVE) HEART FAILURE (8) CAD (coronary artery disease) Code(s): I25.10 - ATHSCL HEART DISEASE OF [place] CORONARY ARTERY W/O ANG PCTRS (9) Dehydration Assessment/Plan: Code(s): E86.0 - DEHYDRATION (10) HTN (hypertension) Assessment/Plan: Code(s): I10 - ESSENTIAL (PRIMARY) HYPERTENSION (11) Hypernatremia Assessment/Plan: Code(s): E87.0 - HYPEROSMOLALITY AND HYPERNATREMIA PLAN: Cont ABX per ID inhaled bronchodilators O2 as needed VTE prophylaxis Strict I&O PO as tolerated Dr Salguero
[2016-08-01] MEDS: INSULIN SLIDING SCALE (NOVOLOG) 1 VIAL SQ SCH ×4 (06:31→22:10)
[2016-08-01] MEDS: FERROUS SO4 325 MG TABLET (FP) PO SCH ×3 (06:49→22:14)
[2016-08-01] MEDS: ASCORBIC ACID 500 MG TABLET (FP) PO SCH ×3 (06:49→22:14)
[2016-08-01] MEDS: metroNIDAZOLE 250 MG TABLET PO SCH ×4 (06:50→22:14)
[2016-08-01] MEDS: NAPH,MB-DB/K PH,MBDB POWDER PACKET PO SCH ×3 (06:58→22:15)
[2016-08-01] MEDS: TAMSULOSIN HCL 0.4 MG CAP.ER.24H (FP) PO SCH (08:44)
[2016-08-01] MEDS: CYANOCOBALAMIN 1,000 MCG TABLET (FP) PO SCH (09:43)
[2016-08-01] MEDS: MULTIVITAMINS (DAILY MVI) TABLET (FP) PO SCH (09:43)
[2016-08-01] MEDS: ENOXAPARIN NA (PORCINE) 40 MG/0.4 ML DISP.SYRIN SQ SCH (09:43)
[2016-08-01] MEDS: FOLIC ACID 1 MG TABLET (FP) PO SCH (09:43)
[2016-08-01] MEDS: ASPIRIN 81 MG CHEWABLE TABLETS PO SCH ×2 (09:44→22:14)
[2016-08-01] MEDS: D5-1/2NS+40 MEQ KCL - 1,000 ML IV SCH ×2 (09:47→22:14)
[2016-08-01] MEDS: ERTAPENEM SODIUM 1 GM in SODIUM CHLORIDE 50 ML IVPB SCH (09:49)
--- NOTE | 2016-08-01 11:16 | PN ---
Progress Note, Physician History of Present Illness: no complaints no issues calm comfortable - Current Medication List Current Medications: Active Medications Acetaminophen (Tylenol -) 650 mg PO Q4H PRN PRN Reason: FEVER OR PAIN Ascorbic Acid (Vitamin C -) 500 mg PO TID [facility] Last Admin: 08/01/16 06:49 Dose: 500 mg Aspirin (Asa -) 81 mg PO BID [facility] Last Admin: 08/01/16 09:44 Dose: 81 mg Cyanocobalamin (Vitamin B12 -) 1,000 mcg PO DAILY [facility] Last Admin: 08/01/16 09:43 Dose: 1,000 mcg Enoxaparin Sodium (Lovenox -) 40 mg SQ DAILY [facility] Last Admin: 08/01/16 09:43 Dose: 40 mg Ferrous Sulfate (Feosol -) 325 mg PO TID [facility] Last Admin: 08/01/16 06:49 Dose: 325 mg Folic Acid (Folic Acid -) 1 mg PO DAILY [facility] Last Admin: 08/01/16 09:43 Dose: 1 mg Guaifenesin (Robitussin -) 10 ml PO Q8H PRN Last Admin: 07/29/16 22:00 Dose: 10 ml Dextrose/Sodium Chloride (D5-1/2ns+40 Meq Kcl -) 1,000 mls @ 100 mls/hr IV ASDIR [facility] Last Admin: 08/01/16 09:47 Dose: 100 mls/hr Ertapenem 1 gm/ Sodium (Chloride) 50 mls @ 50 mls/hr IVPB DAILY [facility] PRN Reason: Protocol Last Admin: 08/01/16 09:49 Dose: 50 mls/hr Insulin Aspart (Novolog Vial Sliding Scale -) 1 vial SQ ACHS [facility] PRN Reason: Protocol Last Admin: 08/01/16 06:31 Dose: Not Given Metronidazole (Flagyl -) 500 mg PO TID [facility] Last Admin: 08/01/16 06:58 Dose: 500 mg Multivitamins/Minerals/Vitamin C (Tab-A-Vit -) 1 tab PO DAILY [facility] Last Admin: 08/01/16 09:43 Dose: 1 tab Ondansetron HCl (Zofran Injection) 4 mg IVPB Q6H PRN PRN Reason: NAUSEA Potassium Phos/Sodium Phos (Phos-Nak Packet -) 1 packet PO TID [facility] Last Admin: 08/01/16 06:58 Dose: 1 packet Tamsulosin HCl (Flomax -) 0.4 mg PO DAILY@0830 [facility] Last Admin: 08/01/16 08:44 Dose: 0.4 mg - Objective Vital Signs: Vital Signs Temperature 97.2 F L 08/01/16 08:58 Pulse Rate 44 L 08/01/16 08:58 Respiratory Rate 16 08/01/16 08:58 Blood Pressure 97/46 08/01/16 08:58 O2 Sat by Pulse Oximetry (%) 95 08/01/16 08:55 Constitutional: Yes: No Distress, Calm Cardiovascular: Yes: Regular Rate and Rhythm Respiratory: Yes: Regular, CTA Bilaterally Gastrointestinal: Yes: Normal Bowel Sounds, Soft Musculoskeletal: Yes: Other Extremities: Yes: Other Neurological: Yes: Alert, Oriented Psychiatric: Yes: Alert Labs: CBC, BMP 07/31/16 05:43 07/31/16 05:43 INR, PTT INR 1.17 (0.82-1.09) H 07/26/16 19:07 Assessment/Plan Problem List - Problems (1) Septic shock Code(s): A41.9 - SEPSIS, UNSPECIFIED ORGANISM R65.21 - SEVERE SEPSIS WITH SEPTIC SHOCK (2) HCAP (healthcare-associated pneumonia) Code(s): J18.9 - PNEUMONIA, UNSPECIFIED ORGANISM (3) UTI (urinary tract infection) Code(s): N39.0 - URINARY TRACT INFECTION, SITE NOT SPECIFIED (4) Diarrhea Code(s): R19.7 - DIARRHEA, UNSPECIFIED Qualifiers: Diarrhea type: unspecified type Qualified Code(s): R19.7 - Diarrhea, unspecified (5) Chest pain Code(s): R07.9 - CHEST PAIN, UNSPECIFIED (6) Anemia Code(s): D64.9 - ANEMIA, UNSPECIFIED Qualifiers: Anemia type: other cause Other causes of anemia: other cause, not classified Qualified Code(s): D64.89 - Other specified anemias (7) Chronic systolic CHF (congestive heart failure) Code(s): I50.22 - CHRONIC SYSTOLIC (CONGESTIVE) HEART FAILURE (8) CAD (coronary artery disease) Code(s): I25.10 - ATHSCL HEART DISEASE OF [place] CORONARY ARTERY W/O ANG PCTRS (9) Dehydration Code(s): E86.0 - DEHYDRATION (10) HTN (hypertension) Code(s): I10 - ESSENTIAL (PRIMARY) HYPERTENSION (11) Hypernatremia Code(s): E87.0 - HYPEROSMOLALITY AND HYPERNATREMIA patient urine cx showing esbl uti plan continue current mgmt rest ct as per primary
--- NOTE | 2016-08-01 13:51 | PN ---
Progress Note (short form) - Note Progress Note: Not very communicative O/E Vital Signs Period Temp Pulse Resp BP Sys/Martino Pulse Ox Last 24 Hr 96.9 F-97.9 F 42-56 16-20 93-99/41-64 95-95 Heart regular Lungs clear Abd soft Ext no edema Current Medications Acetaminophen (Tylenol -) 650 mg PO Q4H PRN PRN Reason: FEVER OR PAIN Ascorbic Acid (Vitamin C -) 500 mg PO TID [facility] Last Admin: 08/01/16 06:49 Dose: 500 mg Aspirin (Asa -) 81 mg PO BID [facility] Last Admin: 08/01/16 09:44 Dose: 81 mg Cyanocobalamin (Vitamin B12 -) 1,000 mcg PO DAILY [facility] Last Admin: 08/01/16 09:43 Dose: 1,000 mcg Enoxaparin Sodium (Lovenox -) 40 mg SQ DAILY [facility] Last Admin: 08/01/16 09:43 Dose: 40 mg Ferrous Sulfate (Feosol -) 325 mg PO TID [facility] Last Admin: 08/01/16 06:49 Dose: 325 mg Folic Acid (Folic Acid -) 1 mg PO DAILY [facility] Last Admin: 08/01/16 09:43 Dose: 1 mg Guaifenesin (Robitussin -) 10 ml PO Q8H PRN Last Admin: 07/29/16 22:00 Dose: 10 ml Dextrose/Sodium Chloride (D5-1/2ns+40 Meq Kcl -) 1,000 mls @ 100 mls/hr IV ASDIR [facility] Last Admin: 08/01/16 09:47 Dose: 100 mls/hr Ertapenem 1 gm/ Sodium (Chloride) 50 mls @ 50 mls/hr IVPB DAILY [facility] PRN Reason: Protocol Last Admin: 08/01/16 09:49 Dose: 50 mls/hr Insulin Aspart (Novolog Vial Sliding Scale -) 1 vial SQ ACHS [facility] PRN Reason: Protocol Last Admin: 08/01/16 11:30 Dose: Not Given Metronidazole (Flagyl -) 500 mg PO TID [facility] Last Admin: 08/01/16 06:58 Dose: 500 mg Multivitamins/Minerals/Vitamin C (Tab-A-Vit -) 1 tab PO DAILY [facility] Last Admin: 08/01/16 09:43 Dose: 1 tab Ondansetron HCl (Zofran Injection) 4 mg IVPB Q6H PRN PRN Reason: NAUSEA Potassium Phos/Sodium Phos (Phos-Nak Packet -) 1 packet PO TID [facility] Last Admin: 08/01/16 06:58 Dose: 1 packet Tamsulosin HCl (Flomax -) 0.4 mg PO DAILY@0830 [facility] Last Admin: 08/01/16 08:44 Dose: 0.4 mg Laboratory Results - last 24 hr 07/31/16 08/01/16 22:45 11:13 POC Glucometer 93 87 A&P (1) Septic shock Assessment/Plan: resolved Code(s): A41.9 - SEPSIS, UNSPECIFIED ORGANISM R65.21 - SEVERE SEPSIS WITH SEPTIC SHOCK (3) UTI (urinary tract infection) Assessment/Plan: cont present care, presently afebrile Code(s): N39.0 - URINARY TRACT INFECTION, SITE NOT SPECIFIED (4) C diff colitis Assessment/Plan: -continue oral flagyl Code(s): R19.7 - DIARRHEA, UNSPECIFIED Qualifiers: Diarrhea type: unspecified type Qualified Code(s): R19.7 - Diarrhea, unspecified (6) Anemia Assessment/Plan: -chronic and stable Code(s): D64.9 - ANEMIA, UNSPECIFIED Qualifiers: Anemia type: other cause Other causes of anemia: other cause, not classified Qualified Code(s): D64.89 - Other specified anemias (7) Chronic systolic CHF (congestive heart failure) Assessment/Plan: -not in exacerbation -continue hydration for sepsis Code(s): I50.22 - CHRONIC SYSTOLIC (CONGESTIVE) HEART FAILURE (8) CAD (coronary artery disease) -continue home regimen -cardiology following Code(s): I25.10 - ATHSCL HEART DISEASE OF [place] CORONARY ARTERY W/O ANG PCTRS (10) HTN (hypertension) Assessment/Plan: -normotensive -continue holding toprol xl Code(s): I10 - ESSENTIAL (PRIMARY) HYPERTENSION (11) Hypernatremia Assessment/Plan: -stable -continue D5 1/NS Code(s): E87.0 - HYPEROSMOLALITY AND HYPERNATREMIA
--- NOTE | 2016-08-01 15:33 | PN ---
Progress Note (short form) - Note Progress Note: cc: sob s: no sob palps dizzy; still with achey chest wall pain at times. remains on IVF o: Current Medications Acetaminophen (Tylenol -) 650 mg PO Q4H PRN PRN Reason: FEVER OR PAIN Ascorbic Acid (Vitamin C -) 500 mg PO TID [facility] Last Admin: 08/01/16 13:59 Dose: 500 mg Aspirin (Asa -) 81 mg PO BID [facility] Last Admin: 08/01/16 09:44 Dose: 81 mg Cyanocobalamin (Vitamin B12 -) 1,000 mcg PO DAILY [facility] Last Admin: 08/01/16 09:43 Dose: 1,000 mcg Enoxaparin Sodium (Lovenox -) 40 mg SQ DAILY [facility] Last Admin: 08/01/16 09:43 Dose: 40 mg Ferrous Sulfate (Feosol -) 325 mg PO TID [facility] Last Admin: 08/01/16 13:59 Dose: 325 mg Folic Acid (Folic Acid -) 1 mg PO DAILY [facility] Last Admin: 08/01/16 09:43 Dose: 1 mg Guaifenesin (Robitussin -) 10 ml PO Q8H PRN Last Admin: 07/29/16 22:00 Dose: 10 ml Dextrose/Sodium Chloride (D5-1/2ns+40 Meq Kcl -) 1,000 mls @ 100 mls/hr IV ASDIR [facility] Last Admin: 08/01/16 09:47 Dose: 100 mls/hr Ertapenem 1 gm/ Sodium (Chloride) 50 mls @ 50 mls/hr IVPB DAILY [facility] PRN Reason: Protocol Last Admin: 08/01/16 09:49 Dose: 50 mls/hr Insulin Aspart (Novolog Vial Sliding Scale -) 1 vial SQ ACHS [facility] PRN Reason: Protocol Last Admin: 08/01/16 11:30 Dose: Not Given Metronidazole (Flagyl -) 500 mg PO TID [facility] Last Admin: 08/01/16 14:00 Dose: 500 mg Multivitamins/Minerals/Vitamin C (Tab-A-Vit -) 1 tab PO DAILY [facility] Last Admin: 08/01/16 09:43 Dose: 1 tab Ondansetron HCl (Zofran Injection) 4 mg IVPB Q6H PRN PRN Reason: NAUSEA Potassium Phos/Sodium Phos (Phos-Nak Packet -) 1 packet PO TID [facility] Last Admin: 08/01/16 14:00 Dose: 1 packet Tamsulosin HCl (Flomax -) 0.4 mg PO DAILY@0830 [facility] Last Admin: 08/01/16 08:44 Dose: 0.4 mg Vital Signs - 24 hr 07/31/16 07/31/16 08/01/16 17:00 21:00 02:00 Temperature 96.9 F L 96.9 F L Pulse Rate 56 L 56 L 53 L Respiratory 18 18 18 Rate Blood Pressure 99/64 93/41 98/51 O2 Sat by Pulse 95 Oximetry (%) 08/01/16 08/01/16 08/01/16 07:24 08:55 08:58 Temperature 97 F L 97.2 F L Pulse Rate 42 L 44 L Respiratory 20 20 16 Rate Blood Pressure 95/47 97/46 O2 Sat by Pulse 95 Oximetry (%) 08/01/16 15:22 Temperature 97.1 F L Pulse Rate 49 L Respiratory 16 Rate Blood Pressure 91/51 O2 Sat by Pulse Oximetry (%) Intake & Output 07/30/16 07/31/16 08/01/16 08/02/16 07:59 07:59 07:59 07:59 Intake Total 1660 1440 1680 1510 Balance 1660 1440 1680 1510 Weight 152 lb 6.4 oz 152 lb 12.8 oz 152 lb 3.2 oz 152 lb 3.2 oz nad no jvd, cachectic rrr s1s2 no mrg bibasilar crackles, nl eff awake, alert, appropriate abd nt nd pos bs no jaundice diaphoresis no le e/c/c mild chest wall tender to palp no CBC, BMP today ecg 07/26/16: sr 59, nl intervals, no ischemic changes cxr: no chf mibi 10/2011: large inferolateral scar, no ischemia, lvef 35% tele: sb 40's-50's echo 07/2016: tds/limited views: grossly nl lv size/fcn, mild mr a/p: 80 m hx htn, hld, dm, cad/[place] (seen on prior mibi), syst chf, sent from or for infection/sepsis. sepsis: -bp improved with ivfs -cont abx per ID htn: -septic, bp on low side, holding htn meds. poor po intake, on IVF hld: -stable, not on statin on home med list, outpt f/u cad/mi: -prior mibi showing infarct, no ischemia -no signs acs, trop neg x2 -current cp seems MSK after a recent fall -cont home asa chronic systolic chf: -no signs vol overload -monitor vol status with ivfs, but no signs of volume overload at this time. -echo here showing nl lvef -not on bb due to bradycardia bradycardia: -pt with known sinus tashia evaluated with holter on prior admit that showed no pathologic bradycardia -tele here with sr in 40s at times so have stopped bb, avoid meds that cause bradycardia
--- NOTE | 2016-08-01 16:34 | PN ---
Progress Note (short form) - Note Progress Note: NAD on NC O2. Still with some intermittent musculoskeletal type discomfort. Intake & Output 07/29/16 07/30/16 07/31/16 08/01/16 23:59 23:59 23:59 23:59 Intake Total 460 1320 1560 2950 Balance 460 1320 1560 2950 Weight 152 lb 6.4 oz 152 lb 12.8 oz 152 lb 3.2 oz Last Vital Signs Temp Pulse Resp BP Pulse Ox 97.1 F L 49 L 16 91/51 95 08/01/16 15:22 08/01/16 15:22 08/01/16 15:22 08/01/16 15:22 08/01/16 08:55 Active Medications Acetaminophen (Tylenol -) 650 mg PO Q4H PRN PRN Reason: FEVER OR PAIN Ascorbic Acid (Vitamin C -) 500 mg PO TID [facility] [place] Last Admin: 08/01/16 13:59 Dose: 500 mg Aspirin (Asa -) 81 mg PO BID [facility] [place] Last Admin: 08/01/16 09:44 Dose: 81 mg Cyanocobalamin (Vitamin B12 -) 1,000 mcg PO DAILY [facility] [place] Last Admin: 08/01/16 09:43 Dose: 1,000 mcg Enoxaparin Sodium (Lovenox -) 40 mg SQ DAILY [facility] [place] Last Admin: 08/01/16 09:43 Dose: 40 mg Ferrous Sulfate (Feosol -) 325 mg PO TID [facility] [place] Last Admin: 08/01/16 13:59 Dose: 325 mg Folic Acid (Folic Acid -) 1 mg PO DAILY [facility] [place] Last Admin: 08/01/16 09:43 Dose: 1 mg Guaifenesin (Robitussin -) 10 ml PO Q8H PRN Last Admin: 07/29/16 22:00 Dose: 10 ml Dextrose/Sodium Chloride (D5-1/2ns+40 Meq Kcl -) 1,000 mls @ 100 mls/hr IV ASDIR [facility] [place] Last Admin: 08/01/16 09:47 Dose: 100 mls/hr Ertapenem 1 gm/ Sodium (Chloride) 50 mls @ 50 mls/hr IVPB DAILY [facility] [place] PRN Reason: Protocol Last Admin: 08/01/16 09:49 Dose: 50 mls/hr Insulin Aspart (Novolog Vial Sliding Scale -) 1 vial SQ ACHS [facility] [place] PRN Reason: Protocol Last Admin: 08/01/16 16:19 Dose: Not Given Metronidazole (Flagyl -) 500 mg PO TID [facility] [place] Last Admin: 08/01/16 14:00 Dose: 500 mg Multivitamins/Minerals/Vitamin C (Tab-A-Vit -) 1 tab PO DAILY [facility] [place] Last Admin: 08/01/16 09:43 Dose: 1 tab Ondansetron HCl (Zofran Injection) 4 mg IVPB Q6H PRN PRN Reason: NAUSEA Potassium Phos/Sodium Phos (Phos-Nak Packet -) 1 packet PO TID [facility] [place] Last Admin: 08/01/16 14:00 Dose: 1 packet Tamsulosin HCl (Flomax -) 0.4 mg PO DAILY@0830 [facility] [place] Last Admin: 08/01/16 08:44 Dose: 0.4 mg Constitutional: Yes: NAD, Thin Eyes: Yes: WNL HENT: Yes: WNL Neck: Yes: WNL Cardiovascular: Yes: Regular Rate and Rhythm, S1, S2 Respiratory: Yes: Bilateral scattered Rhonchi Gastrointestinal: Yes: Normal Bowel Sounds, Soft Extremities: Yes: WNL Edema: No Labs: Laboratory Results - last 24 hr 07/31/16 08/01/16 08/01/16 22:45 11:13 16:13 POC Glucometer 93 87 91 Assessment/Plan Problem List - Problems (1) Septic shock Assessment/Plan: Code(s): A41.9 - SEPSIS, UNSPECIFIED ORGANISM R65.21 - SEVERE SEPSIS WITH SEPTIC SHOCK (2) HCAP (healthcare-associated pneumonia) Assessment/Plan: Code(s): J18.9 - PNEUMONIA, UNSPECIFIED ORGANISM (3) UTI (urinary tract infection) Assessment/Plan: Code(s): N39.0 - URINARY TRACT INFECTION, SITE NOT SPECIFIED (4) Diarrhea Assessment/Plan: Code(s): R19.7 - DIARRHEA, UNSPECIFIED Qualifiers: Diarrhea type: unspecified type Qualified Code(s): R19.7 - Diarrhea, unspecified (5) Chest pain Assessment/Plan: Code(s): R07.9 - CHEST PAIN, UNSPECIFIED (6) Anemia Assessment/Plan: Code(s): D64.9 - ANEMIA, UNSPECIFIED Qualifiers: Anemia type: other cause Other causes of anemia: other cause, not classified Qualified Code(s): D64.89 - Other specified anemias (7) Chronic systolic CHF (congestive heart failure) Assessment/Plan: Code(s): I50.22 - CHRONIC SYSTOLIC (CONGESTIVE) HEART FAILURE (8) CAD (coronary artery disease) Code(s): I25.10 - ATHSCL HEART DISEASE OF [place] CORONARY ARTERY W/O ANG PCTRS (9) Dehydration Assessment/Plan: Code(s): E86.0 - DEHYDRATION (10) HTN (hypertension) Assessment/Plan: Code(s): I10 - ESSENTIAL (PRIMARY) HYPERTENSION (11) Hypernatremia Assessment/Plan: Code(s): E87.0 - HYPEROSMOLALITY AND HYPERNATREMIA PLAN: ABX per ID Inhaled bronchodilators IVF O2 as needed VTE prophylaxis I&O PO as tolerated Dr Salguero
[2016-08-02] MEDS ORDERED: VANCOMYCIN 1 GRAM (PRE-DOCKED) 1,000 MG/250 ML BAG IVPB ONE (06:25)
[2016-08-02] MEDS: INSULIN SLIDING SCALE (NOVOLOG) 1 VIAL SQ SCH ×4 (06:26→21:41)
[2016-08-02] MEDS: metroNIDAZOLE 250 MG TABLET PO SCH ×2 (06:32→15:07)
[2016-08-02] MEDS: NAPH,MB-DB/K PH,MBDB POWDER PACKET PO SCH ×3 (06:32→21:41)
[2016-08-02] MEDS: FERROUS SO4 325 MG TABLET (FP) PO SCH ×3 (06:32→21:40)
[2016-08-02] MEDS: ASCORBIC ACID 500 MG TABLET (FP) PO SCH ×3 (06:32→21:40)
--- NOTE | 2016-08-02 06:54 | HOSP ---
Physical Examination Vital Signs: Vital Signs Temperature 92.5 F L 08/02/16 06:19 Pulse Rate 52 L 08/02/16 06:19 Respiratory Rate 18 08/02/16 06:19 Blood Pressure 100/57 08/02/16 06:19 O2 Sat by Pulse Oximetry (%) 95 08/01/16 08:55 Constitutional: Yes: No Distress, Pallor, Thin Cardiovascular: Yes: Regular Rate and Rhythm, S1, S2 Respiratory: Yes: Regular, Diminished Gastrointestinal: Yes: Normal Bowel Sounds, Soft, Tenderness (suprapubic and left lower quadrant) Peripheral Pulses WNL: Yes Neurological: Yes: Alert, Oriented Psychiatric: Yes: Alert, Oriented Labs: CBC, BMP 07/31/16 05:43 07/31/16 05:43 Hospitalist Encounter Assessment: Was called to assess 80 year old male with significant medical hx of AAA, HTN, GERD, DM type II, hypothyroidism, anemia, c. diff, HLD, CAD, and DC who was admitted for sepsis, UTI with ESBL and Enterococus in urine, c. diff and hypothermia who is now having hypothermic episode with rectal temp of 92 degrees with otherwise normal vitals signs. Pt looks comfortable denies any s/s of acute distress. No dizziness or dysuria, no fever or no chills, no n/v, no abdominal pain. No cough, chest pain or shortness of breath, no chest pain or palpitation. On physical exam pt had suprapubic and left lower quadrant tenderness. 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 Visit type - Emergency Visit Emergency Visit: Yes ED Registration Date: 07/26/16 Care time: The patient presented to the Emergency Department on the above date and was hospitalized for further evaluation of their emergent condition. - New Patient This patient is new to me today: Yes Date on this admission: 08/02/16 - Critical Care Critical Care patient: No
[2016-08-02 07:59] LABS: MCH 33.6 pg (25.7-33.7); MCHC 32.6 g/dl (32.0-35.9); MEAN CELL VOLUME 102.8 fl (80-96); MEAN PLT VOLUME 8.6 fl (7.5-11.1); PLATELET COUNT 279 K/MM3 (134-434); RDW 16.4 % (11.9-15.9); WHITE BLOOD COUNT 9.4 K/mm3 (4.0-10.0)
[2016-08-02 08:35] LABS: CALCIUM 8.2 mg/dL (8.5-10.1); COCKROFT - GAULT 97.87; CREATININE 0.6 mg/dL (0.7-1.3); MAGNESIUM 1.9 mg/dL (1.8-2.4)
[2016-08-02] MEDS: TAMSULOSIN HCL 0.4 MG CAP.ER.24H (FP) PO SCH (09:01)
[2016-08-02] MEDS: ASPIRIN 81 MG CHEWABLE TABLETS PO SCH ×2 (09:01→21:40)
[2016-08-02] MEDS: CYANOCOBALAMIN 1,000 MCG TABLET (FP) PO SCH (09:01)
[2016-08-02] MEDS: ENOXAPARIN NA (PORCINE) 40 MG/0.4 ML DISP.SYRIN SQ SCH (09:02)
[2016-08-02] MEDS: MULTIVITAMINS (DAILY MVI) TABLET (FP) PO SCH (09:02)
[2016-08-02] MEDS: FOLIC ACID 1 MG TABLET (FP) PO SCH (09:05)
--- NOTE | 2016-08-02 09:59 | PN ---
Progress Note, Physician History of Present Illness: pulmonary no distress,-resp distress, c/o chest pain musculoskeletal,hypothermic T- 93 rectal - Current Medication List Current Medications: Active Medications Acetaminophen (Tylenol -) 650 mg PO Q4H PRN PRN Reason: FEVER OR PAIN Ascorbic Acid (Vitamin C -) 500 mg PO TID [facility] Last Admin: 08/02/16 06:32 Dose: 500 mg Aspirin (Asa -) 81 mg PO BID [facility] Last Admin: 08/02/16 09:01 Dose: 81 mg Cyanocobalamin (Vitamin B12 -) 1,000 mcg PO DAILY [facility] Last Admin: 08/02/16 09:01 Dose: 1,000 mcg Enoxaparin Sodium (Lovenox -) 40 mg SQ DAILY [facility] Last Admin: 08/02/16 09:02 Dose: 40 mg Ferrous Sulfate (Feosol -) 325 mg PO TID [facility] Last Admin: 08/02/16 06:32 Dose: 325 mg Folic Acid (Folic Acid -) 1 mg PO DAILY [facility] Last Admin: 08/02/16 09:05 Dose: 1 mg Guaifenesin (Robitussin -) 10 ml PO Q8H PRN Last Admin: 07/29/16 22:00 Dose: 10 ml Dextrose/Sodium Chloride (D5-1/2ns+40 Meq Kcl -) 1,000 mls @ 100 mls/hr IV ASDIR [facility] Last Admin: 08/01/16 22:14 Dose: 100 mls/hr Ertapenem 1 gm/ Sodium (Chloride) 50 mls @ 50 mls/hr IVPB DAILY [facility] PRN Reason: Protocol Last Admin: 08/01/16 09:49 Dose: 50 mls/hr Insulin Aspart (Novolog Vial Sliding Scale -) 1 vial SQ ACHS [facility] PRN Reason: Protocol Last Admin: 08/02/16 06:26 Dose: Not Given Metronidazole (Flagyl -) 500 mg PO TID [facility] Last Admin: 08/02/16 06:32 Dose: 500 mg Multivitamins/Minerals/Vitamin C (Tab-A-Vit -) 1 tab PO DAILY [facility] Last Admin: 08/02/16 09:02 Dose: 1 tab Ondansetron HCl (Zofran Injection) 4 mg IVPB Q6H PRN PRN Reason: NAUSEA Potassium Phos/Sodium Phos (Phos-Nak Packet -) 1 packet PO TID [facility] Last Admin: 08/02/16 06:32 Dose: 1 packet Tamsulosin HCl (Flomax -) 0.4 mg PO DAILY@0830 [facility] Last Admin: 08/02/16 09:01 Dose: 0.4 mg - Objective Vital Signs: Vital Signs Temperature 92.5 F L 08/02/16 06:19 Pulse Rate 52 L 08/02/16 06:19 Respiratory Rate 18 08/02/16 06:19 Blood Pressure 100/57 08/02/16 06:19 O2 Sat by Pulse Oximetry (%) 95 08/01/16 08:55 Constitutional: Yes: Well Nourished, Calm Eyes: Yes: WNL HENT: Yes: WNL Neck: Yes: WNL Cardiovascular: Yes: Regular Rate and Rhythm, S1, S2 Respiratory: Yes: Rhonchi (SCATTERED RHONCHI) Gastrointestinal: Yes: Normal Bowel Sounds, Soft Extremities: Yes: WNL Edema: No Labs: CBC, BMP 08/02/16 06:55 08/02/16 06:55 INR, PTT INR 1.17 (0.82-1.09) H 07/26/16 19:07 - ....Imaging Chest X-ray: Image Reviewed ([facility] [employer]) Assessment/Plan Problem List - Problems (1) Septic shock Assessment/Plan: Code(s): A41.9 - SEPSIS, UNSPECIFIED ORGANISM R65.21 - SEVERE SEPSIS WITH SEPTIC SHOCK (2) HCAP (healthcare-associated pneumonia) Assessment/Plan: Code(s): J18.9 - PNEUMONIA, UNSPECIFIED ORGANISM (3) UTI (urinary tract infection) Assessment/Plan: Code(s): N39.0 - URINARY TRACT INFECTION, SITE NOT SPECIFIED (4) Diarrhea Assessment/Plan: Code(s): R19.7 - DIARRHEA, UNSPECIFIED Qualifiers: Diarrhea type: unspecified type Qualified Code(s): R19.7 - Diarrhea, unspecified (5) Chest pain Assessment/Plan: Code(s): R07.9 - CHEST PAIN, UNSPECIFIED (6) Anemia Assessment/Plan: Code(s): D64.9 - ANEMIA, UNSPECIFIED Qualifiers: Anemia type: other cause Other causes of anemia: other cause, not classified Qualified Code(s): D64.89 - Other specified anemias (7) Chronic systolic CHF (congestive heart failure) Assessment/Plan: Code(s): I50.22 - CHRONIC SYSTOLIC (CONGESTIVE) HEART FAILURE (8) CAD (coronary artery disease) Code(s): I25.10 - ATHSCL HEART DISEASE OF [place] CORONARY ARTERY W/O ANG PCTRS (9) Dehydration Assessment/Plan: Code(s): E86.0 - DEHYDRATION (10) HTN (hypertension) Assessment/Plan: Code(s): I10 - ESSENTIAL (PRIMARY) HYPERTENSION (11) Hypernatremia Assessment/Plan: Code(s): E87.0 - HYPEROSMOLALITY AND HYPERNATREMIA 12 HYPOTHERMIA PLAN: IVF ABX per ID inhaled bronchodilators O2 as needed VTE prophylaxis Strict I&O PO as tolerated ABG LACTATE warming blanket Dr GRAY
[2016-08-02] MEDS: ERTAPENEM SODIUM 1 GM in SODIUM CHLORIDE 50 ML IVPB SCH (10:05)
[2016-08-02] MEDS: D5-1/2NS+40 MEQ KCL - 1,000 ML IV SCH (10:12)
[2016-08-02 11:22] LABS: ARTERIAL BLD GAS O2 SATURATION 90.8 % (90-98.9); ARTERIAL BLOOD GAS BASE EXCESS -10.6 meq/l (-2-2); ARTERIAL BLOOD GAS HCO3 13.6 meq/L (22-26); ARTERIAL BLOOD GAS PO2 62.9 mmHg (68-100); ARTERIAL BLOOD GAS pH 7.35 (7.35-7.45)
[2016-08-02 11:23] LABS: ALLENS TEST POSITIVE; ART PUNCT SITE RIGHT BRACHIAL; LPM/O2% 4L; PT. ON O2? YES; TYPE OF O2 N/C
--- NOTE | 2016-08-02 14:07 | PN ---
Progress Note (short form) - Note Progress Note: No complaint No fever O/E Vital Signs Period Temp Pulse Resp BP Sys/Martino Pulse Ox Last 24 Hr 92.5 F-97.1 F 45-88 12-18 91-123/51-75 Herat regular Lungs clear' Abd soft Ext no edema Not cold Current Medications Acetaminophen (Tylenol -) 650 mg PO Q4H PRN PRN Reason: FEVER OR PAIN Ascorbic Acid (Vitamin C -) 500 mg PO TID [facility] Last Admin: 08/02/16 06:32 Dose: 500 mg Aspirin (Asa -) 81 mg PO BID [facility] Last Admin: 08/02/16 09:01 Dose: 81 mg Cyanocobalamin (Vitamin B12 -) 1,000 mcg PO DAILY [facility] Last Admin: 08/02/16 09:01 Dose: 1,000 mcg Enoxaparin Sodium (Lovenox -) 40 mg SQ DAILY [facility] Last Admin: 08/02/16 09:02 Dose: 40 mg Ferrous Sulfate (Feosol -) 325 mg PO TID [facility] Last Admin: 08/02/16 06:32 Dose: 325 mg Folic Acid (Folic Acid -) 1 mg PO DAILY [facility] Last Admin: 08/02/16 09:05 Dose: 1 mg Guaifenesin (Robitussin -) 10 ml PO Q8H PRN Last Admin: 07/29/16 22:00 Dose: 10 ml Dextrose/Sodium Chloride (D5-1/2ns+40 Meq Kcl -) 1,000 mls @ 100 mls/hr IV ASDIR [facility] Last Admin: 08/02/16 10:12 Dose: 100 mls/hr Ertapenem 1 gm/ Sodium (Chloride) 50 mls @ 50 mls/hr IVPB DAILY [facility] PRN Reason: Protocol Last Admin: 08/02/16 10:05 Dose: 50 mls/hr Insulin Aspart (Novolog Vial Sliding Scale -) 1 vial SQ ACHS [facility] PRN Reason: Protocol Last Admin: 08/02/16 12:22 Dose: Not Given Metronidazole (Flagyl -) 500 mg PO TID [facility] Last Admin: 08/02/16 06:32 Dose: 500 mg Multivitamins/Minerals/Vitamin C (Tab-A-Vit -) 1 tab PO DAILY [facility] Last Admin: 08/02/16 09:02 Dose: 1 tab Ondansetron HCl (Zofran Injection) 4 mg IVPB Q6H PRN PRN Reason: NAUSEA Potassium Phos/Sodium Phos (Phos-Nak Packet -) 1 packet PO TID [facility] Last Admin: 08/02/16 06:32 Dose: 1 packet Tamsulosin HCl (Flomax -) 0.4 mg PO DAILY@0830 [facility] Last Admin: 08/02/16 09:01 Dose: 0.4 mg Laboratory Results - last 24 hr 08/01/16 08/01/16 08/02/16 16:13 22:09 06:11 WBC RBC Hgb Hct MCV MCHC RDW Plt Count MPV Puncture Site ABG pH ABG pCO2 at Pt Temp ABG pO2 at Pt Temp ABG HCO3 ABG O2 Sat (Measured) ABG O2 Content ABG Base Excess Torey Test O2 Delivery Device Oxygen Flow Rate PEEP Sodium Potassium Chloride Carbon Dioxide Anion Gap BUN Creatinine POC Glucometer 91 115 105 Random Glucose Lactic Acid Calcium Magnesium 08/02/16 08/02/16 08/02/16 06:55 06:55 06:55 WBC 9.4 RBC 2.99 L Hgb 10.0 L D Hct 30.7 L MCV 102.8 H MCHC 32.6 RDW 16.4 H Plt Count 279 MPV 8.6 Puncture Site ABG pH ABG pCO2 at Pt Temp ABG pO2 at Pt Temp ABG HCO3 ABG O2 Sat (Measured) ABG O2 Content ABG Base Excess Torey Test O2 Delivery Device Oxygen Flow Rate PEEP Sodium 148 H Potassium 4.3 Chloride 122 H Carbon Dioxide 16 L Anion Gap 10 BUN 11 D Creatinine 0.6 L POC Glucometer Random Glucose 112 H D Lactic Acid 1.6 Calcium 8.2 L Magnesium 1.9 08/02/16 08/02/16 08/02/16 10:50 11:20 12:02 WBC RBC Hgb Hct MCV MCHC RDW Plt Count MPV Puncture Site Right brachial ABG pH 7.35 ABG pCO2 at Pt Temp 25.4 L ABG pO2 at Pt Temp 62.9 L ABG HCO3 13.6 L* ABG O2 Sat (Measured) 90.8 ABG O2 Content 11.0 L ABG Base Excess -10.6 L* Torey Test Positive O2 Delivery Device N/c Oxygen Flow Rate 4l PEEP 0.0 Sodium Potassium Chloride Carbon Dioxide Anion Gap BUN Creatinine POC Glucometer 123 Random Glucose Lactic Acid 1.5 Calcium Magnesium A&P 1.Hypothermia Etiology is not clear The patinet appears clinically very stable and not septic Check Cortisol level (1) Septic shock Assessment/Plan: resolved Code(s): A41.9 - SEPSIS, UNSPECIFIED ORGANISM R65.21 - SEVERE SEPSIS WITH SEPTIC SHOCK Resolved, comt ABX (3) UTI (urinary tract infection) Assessment/Plan: cont present care, presently afebrile Code(s): N39.0 - URINARY TRACT INFECTION, SITE NOT SPECIFIED (4) C diff colitis Assessment/Plan: -continue oral flagyl Code(s): R19.7 - DIARRHEA, UNSPECIFIED Qualifiers: Diarrhea type: unspecified type Qualified Code(s): R19.7 - Diarrhea, unspecified (6) Anemia Assessment/Plan: -chronic and stable Code(s): D64.9 - ANEMIA, UNSPECIFIED Qualifiers: Anemia type: other cause Other causes of anemia: other cause, not classified Qualified Code(s): D64.89 - Other specified anemias (7) Chronic systolic CHF (congestive heart failure) Assessment/Plan: -not in exacerbation -continue hydration for sepsis Code(s): I50.22 - CHRONIC SYSTOLIC (CONGESTIVE) HEART FAILURE (8) CAD (coronary artery disease) -continue home regimen -cardiology following Code(s): I25.10 - ATHSCL HEART DISEASE OF [place] CORONARY ARTERY W/O ANG PCTRS (10) HTN (hypertension) Assessment/Plan: -normotensive -continue holding toprol xl Code(s): I10 - ESSENTIAL (PRIMARY) HYPERTENSION (11) Hypernatremia Assessment/Plan: -stable -continue D5 1/NS Code(s): E87.0 - HYPEROSMOLALITY AND HYPERNATREMIA
--- NOTE | 2016-08-02 14:34 | PN ---
Progress Note (short form) - Note Progress Note: cc: sob s: transferred to the ICU for hypothermia. denies cp, sob, palps, dizziness. Appears weak. + cough. o: Current Medications Acetaminophen (Tylenol -) 650 mg PO Q4H PRN PRN Reason: FEVER OR PAIN Ascorbic Acid (Vitamin C -) 500 mg PO TID [facility] Last Admin: 08/02/16 06:32 Dose: 500 mg Aspirin (Asa -) 81 mg PO BID [facility] Last Admin: 08/02/16 09:01 Dose: 81 mg Cyanocobalamin (Vitamin B12 -) 1,000 mcg PO DAILY [facility] Last Admin: 08/02/16 09:01 Dose: 1,000 mcg Enoxaparin Sodium (Lovenox -) 40 mg SQ DAILY [facility] Last Admin: 08/02/16 09:02 Dose: 40 mg Ferrous Sulfate (Feosol -) 325 mg PO TID [facility] Last Admin: 08/02/16 06:32 Dose: 325 mg Folic Acid (Folic Acid -) 1 mg PO DAILY [facility] Last Admin: 08/02/16 09:05 Dose: 1 mg Guaifenesin (Robitussin -) 10 ml PO Q8H PRN Last Admin: 07/29/16 22:00 Dose: 10 ml Dextrose/Sodium Chloride (D5-1/2ns+40 Meq Kcl -) 1,000 mls @ 100 mls/hr IV ASDIR [facility] Last Admin: 08/02/16 10:12 Dose: 100 mls/hr Ertapenem 1 gm/ Sodium (Chloride) 50 mls @ 50 mls/hr IVPB DAILY [facility] PRN Reason: Protocol Last Admin: 08/02/16 10:05 Dose: 50 mls/hr Insulin Aspart (Novolog Vial Sliding Scale -) 1 vial SQ ACHS [facility] PRN Reason: Protocol Last Admin: 08/02/16 12:22 Dose: Not Given Metronidazole (Flagyl -) 500 mg PO TID [facility] Last Admin: 08/02/16 06:32 Dose: 500 mg Multivitamins/Minerals/Vitamin C (Tab-A-Vit -) 1 tab PO DAILY [facility] Last Admin: 08/02/16 09:02 Dose: 1 tab Ondansetron HCl (Zofran Injection) 4 mg IVPB Q6H PRN PRN Reason: NAUSEA Potassium Phos/Sodium Phos (Phos-Nak Packet -) 1 packet PO TID [facility] Last Admin: 08/02/16 06:32 Dose: 1 packet Tamsulosin HCl (Flomax -) 0.4 mg PO DAILY@0830 [facility] Last Admin: 08/02/16 09:01 Dose: 0.4 mg Vital Signs - 24 hr 08/01/16 08/01/16 08/01/16 15:22 17:00 22:00 Temperature 97.1 F L 96 F L Pulse Rate 49 L 88 54 L Respiratory 16 18 18 Rate Blood Pressure 91/51 107/57 98/54 08/02/16 08/02/16 08/02/16 02:39 06:19 10:00 Temperature 95.1 F L 92.5 F L 93 F L Pulse Rate 57 L 52 L 50 L Respiratory 18 18 18 Rate Blood Pressure 123/68 100/57 100/60 08/02/16 13:52 Temperature 93.0 F L Pulse Rate 45 L Respiratory 12 Rate Blood Pressure 110/75 Intake & Output 07/31/16 08/01/16 08/02/16 08/03/16 07:59 07:59 07:59 07:59 Intake Total 1440 1680 2960 Balance 1440 1680 2960 Weight 152 lb 12.8 oz 152 lb 3.2 oz 158 lb 144 lb 14.4 oz nad no jvd, cachectic rrr s1s2 no mrg bibasilar crackles/rhonchi, nl eff awake, alert, appropriate abd nt nd pos bs no jaundice diaphoresis no le e/c/c mild chest wall tender to palp CBC, BMP 08/02/16 06:55 08/02/16 06:55 Laboratory Tests 08/02/16 08/02/16 08/02/16 06:55 06:55 11:20 ABG pH 7.35 ABG pCO2 at Pt Temp 25.4 L ABG pO2 at Pt Temp 62.9 L ABG HCO3 13.6 L* ABG O2 Sat (Measured) 90.8 Lactic Acid 1.6 Magnesium 1.9 ecg 07/26/16: sr 59, nl intervals, no ischemic changes cxr: no chf mibi 10/2011: large inferolateral scar, no ischemia, lvef 35% tele: sb. pvc's. two episodes of self-limited ventricular escape rhythm. echo 07/2016: tds/limited views: grossly nl lv size/fcn, mild mr a/p: 80 m hx htn, hld, dm, cad/IN (seen on prior mibi), syst chf, sent from [place] for infection/sepsis. sepsis: -bp improved with ivfs -cont abx per ID htn: -septic, bp on low side, holding htn meds. poor po intake, on IVF hld: -stable, not on statin on home med list, outpt f/u cad/mi: -prior mibi showing infarct, no ischemia -no signs acs, trop neg x2 -current cp seems MSK after a recent fall -cont home asa chronic systolic chf: -no signs vol overload -monitor vol status with ivfs, but no signs of volume overload at this time. -echo here showing nl lvef -not on bb due to bradycardia bradycardia: -pt with known sinus tashia evaluated with holter on prior admit that showed no pathologic bradycardia -tele here with sr in 40s at times so have stopped bb, avoid meds that cause bradycardia - avoid qt prolonging drugs when possible.
--- NOTE | 2016-08-02 16:47 | PN ---
Progress Note, Physician History of Present Illness: patient became hypothermic low as 93 transferred to icu worked up blood cx send - Current Medication List Current Medications: Active Medications Acetaminophen (Tylenol -) 650 mg PO Q4H PRN PRN Reason: FEVER OR PAIN Ascorbic Acid (Vitamin C -) 500 mg PO TID [facility] Last Admin: 08/02/16 15:07 Dose: Not Given Aspirin (Asa -) 81 mg PO BID [facility] Last Admin: 08/02/16 09:01 Dose: 81 mg Cyanocobalamin (Vitamin B12 -) 1,000 mcg PO DAILY [facility] Last Admin: 08/02/16 09:01 Dose: 1,000 mcg Enoxaparin Sodium (Lovenox -) 40 mg SQ DAILY [facility] Last Admin: 08/02/16 09:02 Dose: 40 mg Ferrous Sulfate (Feosol -) 325 mg PO TID [facility] Last Admin: 08/02/16 15:06 Dose: Not Given Folic Acid (Folic Acid -) 1 mg PO DAILY [facility] Last Admin: 08/02/16 09:05 Dose: 1 mg Guaifenesin (Robitussin -) 10 ml PO Q8H PRN Last Admin: 07/29/16 22:00 Dose: 10 ml Dextrose/Sodium Chloride (D5-1/2ns+40 Meq Kcl -) 1,000 mls @ 100 mls/hr IV ASDIR [facility] Last Admin: 08/02/16 10:12 Dose: 100 mls/hr Ertapenem 1 gm/ Sodium (Chloride) 50 mls @ 50 mls/hr IVPB DAILY [facility] PRN Reason: Protocol Last Admin: 08/02/16 10:05 Dose: 50 mls/hr Insulin Aspart (Novolog Vial Sliding Scale -) 1 vial SQ ACHS [facility] PRN Reason: Protocol Last Admin: 08/02/16 12:22 Dose: Not Given Metronidazole (Flagyl -) 500 mg PO TID [facility] Last Admin: 08/02/16 15:07 Dose: Not Given Multivitamins/Minerals/Vitamin C (Tab-A-Vit -) 1 tab PO DAILY [facility] Last Admin: 08/02/16 09:02 Dose: 1 tab Ondansetron HCl (Zofran Injection) 4 mg IVPB Q6H PRN PRN Reason: NAUSEA Potassium Phos/Sodium Phos (Phos-Nak Packet -) 1 packet PO TID [facility] Last Admin: 08/02/16 15:07 Dose: Not Given Tamsulosin HCl (Flomax -) 0.4 mg PO DAILY@0830 [facility] Last Admin: 08/02/16 09:01 Dose: 0.4 mg - Objective Vital Signs: Vital Signs Temperature 94.2 F L 08/02/16 16:02 Pulse Rate 52 L 08/02/16 16:02 Respiratory Rate 12 08/02/16 16:02 Blood Pressure 82/56 08/02/16 16:02 O2 Sat by Pulse Oximetry (%) 95 08/01/16 08:55 Constitutional: Yes: No Distress, Calm Cardiovascular: Yes: S1, S2 Respiratory: Yes: Regular, Poor Air Entry Gastrointestinal: Yes: Normal Bowel Sounds, Soft Genitourinary: Yes: Other (spurapubic tenderness) Musculoskeletal: Yes: WNL Extremities: Yes: WNL Neurological: Yes: Alert Psychiatric: Yes: Alert Labs: CBC, BMP 08/02/16 06:55 08/02/16 06:55 INR, PTT INR 1.17 (0.82-1.09) H 07/26/16 19:07 Assessment/Plan Problem List - Problems (1) Septic shock Code(s): A41.9 - SEPSIS, UNSPECIFIED ORGANISM R65.21 - SEVERE SEPSIS WITH SEPTIC SHOCK (2) HCAP (healthcare-associated pneumonia) Code(s): J18.9 - PNEUMONIA, UNSPECIFIED ORGANISM (3) UTI (urinary tract infection) Code(s): N39.0 - URINARY TRACT INFECTION, SITE NOT SPECIFIED (4) Diarrhea Code(s): R19.7 - DIARRHEA, UNSPECIFIED Qualifiers: Diarrhea type: unspecified type Qualified Code(s): R19.7 - Diarrhea, unspecified (5) Chest pain Code(s): R07.9 - CHEST PAIN, UNSPECIFIED (6) Anemia Code(s): D64.9 - ANEMIA, UNSPECIFIED Qualifiers: Anemia type: other cause Other causes of anemia: other cause, not classified Qualified Code(s): D64.89 - Other specified anemias (7) Chronic systolic CHF (congestive heart failure) Code(s): I50.22 - CHRONIC SYSTOLIC (CONGESTIVE) HEART FAILURE (8) CAD (coronary artery disease) Code(s): I25.10 - ATHSCL HEART DISEASE OF [place] CORONARY ARTERY W/O ANG PCTRS (9) Dehydration Code(s): E86.0 - DEHYDRATION (10) HTN (hypertension) Code(s): I10 - ESSENTIAL (PRIMARY) HYPERTENSION (11) Hypernatremia Code(s): E87.0 - HYPEROSMOLALITY AND HYPERNATREMIA 12 hypothermia 13 cdiff plan patient transferred to icu will add flagyl iv also will add vanco orally will stop ertapenam continue monitoring temp cc time 40 min
[2016-08-02] MEDS: METRONIDAZOLE 500 MG PREMIXED 100 ML IVPB SCH (17:28)
[2016-08-02] MEDS: VANCOMYCIN 250 MG/5 ML ORAL SOLUTION PO SCH (20:07)
[2016-08-03] MEDS: METRONIDAZOLE 500 MG PREMIXED 100 ML IVPB SCH ×3 (01:06→18:11)
[2016-08-03] MEDS: ASCORBIC ACID 500 MG TABLET (FP) PO SCH ×4 (05:21→22:22)
[2016-08-03] MEDS: NAPH,MB-DB/K PH,MBDB POWDER PACKET PO SCH ×4 (05:22→22:22)
[2016-08-03] MEDS: FERROUS SO4 325 MG TABLET (FP) PO SCH ×4 (05:22→22:22)
[2016-08-03] MEDS: VANCOMYCIN 250 MG/5 ML ORAL SOLUTION PO SCH ×4 (05:22→18:11)
[2016-08-03] MEDS: INSULIN SLIDING SCALE (NOVOLOG) 1 VIAL SQ SCH ×4 (06:14→22:00)
[2016-08-03 06:46] LABS: CALCIUM 8.1 mg/dL (8.5-10.1); COCKROFT - GAULT 91.3; CREATININE 0.6 mg/dL (0.7-1.3)
[2016-08-03] MEDS: D5-1/2NS+40 MEQ KCL - 1,000 ML IV SCH (09:11)
[2016-08-03] MEDS ORDERED: PT OWN MED DRAWER 7, Y5N ONE (09:15)
[2016-08-03] MEDS: TAMSULOSIN HCL 0.4 MG CAP.ER.24H (FP) PO SCH (09:16)
[2016-08-03] MEDS: ASPIRIN 81 MG CHEWABLE TABLETS PO SCH ×3 (09:16→22:21)
[2016-08-03] MEDS: MULTIVITAMINS (DAILY MVI) TABLET (FP) PO SCH (09:17)
[2016-08-03] MEDS: FOLIC ACID 1 MG TABLET (FP) PO SCH (09:17)
[2016-08-03] MEDS: ENOXAPARIN NA (PORCINE) 40 MG/0.4 ML DISP.SYRIN SQ SCH (09:17)
[2016-08-03] MEDS: CYANOCOBALAMIN 1,000 MCG TABLET (FP) PO SCH (09:17)
[2016-08-03] MEDS: ERTAPENEM SODIUM 1 GM in SODIUM CHLORIDE 50 ML IVPB SCH (09:24)
[2016-08-03] MEDS: ACETAMINOPHEN 325 MG TABLET (FP) PO PRN (09:29)
--- NOTE | 2016-08-03 09:41 | PN ---
Progress Note (short form) - Note Progress Note: Patient seen and examined in ICU. Alert, awake, interactive in conversation. Feeling tired and sleepy. Denies chest pain, shortness of breath, palpitation or dizziness. O/E Vital Signs Period Temp Pulse Resp BP Sys/Martino Pulse Ox Last 24 Hr 92.6 F-97.7 F 45-75 11-21 81-110/44-75 96-96 Heartt regular Lungs clear' Abd soft Ext no edema Not cold Current Medications Acetaminophen (Tylenol -) 650 mg PO Q4H PRN PRN Reason: FEVER OR PAIN Last Admin: 08/03/16 09:29 Dose: 650 mg Ascorbic Acid (Vitamin C -) 500 mg PO TID [facility] Last Admin: 08/03/16 05:21 Dose: 500 mg Aspirin (Asa -) 81 mg PO BID [facility] Last Admin: 08/03/16 09:16 Dose: 81 mg Cyanocobalamin (Vitamin B12 -) 1,000 mcg PO DAILY [facility] Last Admin: 08/03/16 09:17 Dose: 1,000 mcg Enoxaparin Sodium (Lovenox -) 40 mg SQ DAILY [facility] Last Admin: 08/03/16 09:17 Dose: 40 mg Ferrous Sulfate (Feosol -) 325 mg PO TID [facility] Last Admin: 08/03/16 05:22 Dose: 325 mg Folic Acid (Folic Acid -) 1 mg PO DAILY [facility] Last Admin: 08/03/16 09:17 Dose: 1 mg Guaifenesin (Robitussin -) 10 ml PO Q8H PRN Last Admin: 07/29/16 22:00 Dose: 10 ml Dextrose/Sodium Chloride (D5-1/2ns+40 Meq Kcl -) 1,000 mls @ 100 mls/hr IV ASDIR [facility] Last Admin: 08/03/16 09:11 Dose: 100 mls/hr Metronidazole (Flagyl 500mg Premixed Ivpb -) 100 mls @ 100 mls/hr IVPB Q8H-IV [facility] Last Admin: 08/03/16 09:16 Dose: 100 mls/hr Ertapenem 1 gm/ Sodium (Chloride) 50 mls @ 100 mls/hr IVPB DAILY [facility] PRN Reason: Protocol Last Admin: 08/03/16 09:24 Dose: 100 mls/hr Insulin Aspart (Novolog Vial Sliding Scale -) 1 vial SQ ACHS [facility] PRN Reason: Protocol Last Admin: 08/03/16 06:14 Dose: Not Given Multivitamins/Minerals/Vitamin C (Tab-A-Vit -) 1 tab PO DAILY [facility] Last Admin: 08/03/16 09:17 Dose: 1 tab Ondansetron HCl (Zofran Injection) 4 mg IVPB Q6H PRN PRN Reason: NAUSEA Potassium Phos/Sodium Phos (Phos-Nak Packet -) 1 packet PO TID [facility] Last Admin: 08/03/16 05:22 Dose: 1 packet Tamsulosin HCl (Flomax -) 0.4 mg PO DAILY@0830 [facility] Last Admin: 08/03/16 09:16 Dose: 0.4 mg Vancomycin HCl (Vancomycin Oral Solution) 125 mg PO Q6HPO [facility] Last Admin: 08/03/16 05:22 Dose: 125 mg CBC, BMP 08/02/16 06:55 08/03/16 05:20 Microbiology 08/02/16 07:15 Blood - Peripheral Venous Blood Culture - Preliminary NO GROWTH OBTAINED AFTER 24 HOURS, INCUBATION TO CONTINUE FOR 4 DAYS. 08/02/16 06:55 Blood - Peripheral Venous Blood Culture - Preliminary NO GROWTH OBTAINED AFTER 24 HOURS, INCUBATION TO CONTINUE FOR 4 DAYS. A&P 1. Hypothermia Transferred yesterday from floor for hypothermia. Temperature still on the lower side. Asymptomatic. Comfortable. Cortisol level pending Etiology is not clear Sepsis work up in progress. (2) UTI (urinary tract infection) Assessment/Plan: cont present care, presently afebrile Code(s): N39.0 - URINARY TRACT INFECTION, SITE NOT SPECIFIED (3) C diff colitis Assessment/Plan: -Continue oral flagyl Code(s): R19.7 - DIARRHEA, UNSPECIFIED Qualifiers: Diarrhea type: unspecified type Qualified Code(s): R19.7 - Diarrhea, unspecified (4) Anemia Assessment/Plan: -chronic and stable Code(s): D64.9 - ANEMIA, UNSPECIFIED Qualifiers: Anemia type: other cause Other causes of anemia: other cause, not classified Qualified Code(s): D64.89 - Other specified anemias (5) Chronic systolic CHF (congestive heart failure) Assessment/Plan: -not in exacerbation -continue hydration for sepsis Code(s): I50.22 - CHRONIC SYSTOLIC (CONGESTIVE) HEART FAILURE (6) CAD (coronary artery disease) -continue home regimen -cardiology following Code(s): I25.10 - ATHSCL HEART DISEASE OF [place] CORONARY ARTERY W/O ANG PCTRS (7) HTN (hypertension) Assessment/Plan: -Normotensive -Continue holding toprol xl Code(s): I10 - ESSENTIAL (PRIMARY) HYPERTENSION (8) Hypernatremia Assessment/Plan: -Continue D5 1/NS Code(s): E87.0 - HYPEROSMOLALITY AND HYPERNATREMIA
--- NOTE | 2016-08-03 12:21 | PN ---
Teaching Attending Note Name of Resident: Madina Saldana ATTENDING PHYSICIAN STATEMENT I saw and evaluated the patient. I reviewed the resident's note and discussed the case with the resident. I agree with the resident's findings and plan as documented. SUBJECTIVE: Pt seen and examined in the ICU. More alert, awake. No fevers or chills. Blood pressures borderline. OBJECTIVE: Last Vital Signs Temp Pulse Resp BP Pulse Ox 97.0 F L 61 12 74/51 96 08/03/16 11:27 08/03/16 11:27 08/03/16 11:27 08/03/16 11:27 08/02/16 21:00 Intake & Output 07/31/16 08/01/16 08/02/16 08/03/16 23:59 23:59 23:59 23:59 Intake Total 1560 2960 2655 1020 Balance 1560 2960 2655 1020 Weight 152 lb 12.8 oz 152 lb 3.2 oz 144 lb 14.4 oz 147 lb 6.4 oz Gen: more alert, awake Heart: RRR Lung: decreased breath sounds at the bases Abd: soft, nontender Ext: no edema CBC, BMP 08/02/16 06:55 08/03/16 05:20 Active Medications Acetaminophen (Tylenol -) 650 mg PO Q4H PRN PRN Reason: FEVER OR PAIN Last Admin: 08/03/16 09:29 Dose: 650 mg Ascorbic Acid (Vitamin C -) 500 mg PO TID [facility] Last Admin: 08/03/16 05:21 Dose: 500 mg Aspirin (Asa -) 81 mg PO BID [facility] Last Admin: 08/03/16 09:16 Dose: 81 mg Cyanocobalamin (Vitamin B12 -) 1,000 mcg PO DAILY [facility] Last Admin: 08/03/16 09:17 Dose: 1,000 mcg Enoxaparin Sodium (Lovenox -) 40 mg SQ DAILY [facility] Last Admin: 08/03/16 09:17 Dose: 40 mg Ferrous Sulfate (Feosol -) 325 mg PO TID [facility] Last Admin: 08/03/16 05:22 Dose: 325 mg Folic Acid (Folic Acid -) 1 mg PO DAILY [facility] Last Admin: 08/03/16 09:17 Dose: 1 mg Guaifenesin (Robitussin -) 10 ml PO Q8H PRN Last Admin: 07/29/16 22:00 Dose: 10 ml Dextrose/Sodium Chloride (D5-1/2ns+40 Meq Kcl -) 1,000 mls @ 100 mls/hr IV ASDIR [facility] Last Admin: 08/03/16 09:11 Dose: 100 mls/hr Metronidazole (Flagyl 500mg Premixed Ivpb -) 100 mls @ 100 mls/hr IVPB Q8H-IV [facility] Last Admin: 08/03/16 09:16 Dose: 100 mls/hr Ertapenem 1 gm/ Sodium (Chloride) 50 mls @ 100 mls/hr IVPB DAILY [facility] PRN Reason: Protocol Last Admin: 08/03/16 09:24 Dose: 100 mls/hr Insulin Aspart (Novolog Vial Sliding Scale -) 1 vial SQ ACHS [facility] PRN Reason: Protocol Last Admin: 08/03/16 06:14 Dose: Not Given Multivitamins/Minerals/Vitamin C (Tab-A-Vit -) 1 tab PO DAILY [facility] Last Admin: 08/03/16 09:17 Dose: 1 tab Ondansetron HCl (Zofran Injection) 4 mg IVPB Q6H PRN PRN Reason: NAUSEA Potassium Phos/Sodium Phos (Phos-Nak Packet -) 1 packet PO TID [facility] Last Admin: 08/03/16 05:22 Dose: 1 packet Tamsulosin HCl (Flomax -) 0.4 mg PO DAILY@0830 [facility] Last Admin: 08/03/16 09:16 Dose: 0.4 mg Vancomycin HCl (Vancomycin Oral Solution) 125 mg PO Q6HPO [facility] Last Admin: 08/03/16 05:22 Dose: 125 mg ASSESSMENT AND PLAN: UTI C Diff Colitis Pneumonia vs Atelectasis Septic Shock resolving CAD LV Systolic Dysfunction HTN - continue antibiotics per ID - monitor urine output, creatinine - replete lytes - increase free water - aspiration precautions - attempt incentive spirometry - DVT prophylaxis
--- NOTE | 2016-08-03 13:26 | PN ---
Physical Exam: SUBJECTIVE: Patient seen and examined. He is feeling good today. He denies any chills, SOB, chest pain, abdominal pain. OBJECTIVE: Vital Signs Period Temp Pulse Resp BP Sys/Martino Pulse Ox Last 24 Hr 92.6 F-97.7 F 45-75 11-22 74-110/44-75 96-96 GENERAL: The patient is awake, alert, and fully oriented, in no acute distress. HEAD: Normal with no signs of trauma. EYES: extraocular movements intact, sclera anicteric, conjunctiva clear. ENT: oropharynx clear without exudates, moist mucous membranes. NECK: Trachea midline, supple. LUNGS: Breath sounds equal, clear to auscultation bilaterally, no wheezes, no crackles, no accessory muscle use. HEART: Regular rate and rhythm, S1, S2 without murmur, rub or gallop. ABDOMEN: Soft, nontender, nondistended, normoactive bowel sounds, no guarding, no rebound, no hepatosplenomegaly, no masses. EXTREMITIES: warm, no edema, amputated left toe, no erythema. NEUROLOGICAL: Normal speech, gait not observed. PSYCH: Normal mood, normal affect. SKIN: Warm, dry, normal turgor, venous stasis changes in lower extremities B/L. Laboratory Results - last 24 hr 08/01/16 08/01/16 08/02/16 05:15 05:19 17:13 Sodium Potassium Chloride Carbon Dioxide Anion Gap BUN Creatinine POC Glucometer 90 85 [phone] Random Glucose Calcium 08/02/16 08/03/16 08/03/16 21:37 05:20 05:38 Sodium 148 H Potassium 4.3 Chloride 124 H Carbon Dioxide 16 L Anion Gap 8 BUN 10 Creatinine 0.6 L POC Glucometer 112.62397 123.67086 Random Glucose 82 D Calcium 8.1 L 08/03/16 11:48 Sodium Potassium Chloride Carbon Dioxide Anion Gap BUN Creatinine POC Glucometer [phone] Random Glucose Calcium Active Medications Generic Name Dose Route Start Last Admin Trade Name Freq PRN Reason Stop Dose Admin Acetaminophen 650 mg 07/27/16 19:04 08/03/16 09:29 Tylenol - PO 650 mg Q4H PRN Administration FEVER OR PAIN Ascorbic Acid 500 mg 07/27/16 22:00 08/03/16 13:21 Vitamin C - PO 500 mg TID OLES[facility] Administration Aspirin 81 mg 07/27/16 22:00 08/03/16 09:16 Asa - PO 81 mg BID [facility] Administration Cyanocobalamin 1,000 mcg 07/28/16 10:00 08/03/16 09:17 Vitamin B12 - PO 1,000 mcg DAILY [facility] Administration Enoxaparin Sodium 40 mg 07/28/16 10:00 08/03/16 09:17 Lovenox - SQ 40 mg DAILY [facility] Administration Ferrous Sulfate 325 mg 07/27/16 22:00 08/03/16 13:21 Feosol - PO 325 mg TID OLESYA Administration Folic Acid 1 mg 07/28/16 10:00 08/03/16 09:17 Folic Acid - PO 1 mg DAILY [facility] Administration Guaifenesin 10 ml 07/29/16 21:53 07/29/16 22:00 Robitussin - PO 10 ml Q8H PRN Administration Dextrose/Sodium Chloride 1,000 mls @ 100 mls/hr 07/29/16 09:45 08/03/16 09:11 D5-1/2ns+40 Meq Kcl - IV 100 mls/hr ASDIR [facility] Administration Metronidazole 100 mls @ 100 mls/hr 08/02/16 18:00 08/03/16 09:16 Flagyl 500mg Premixed Ivpb - IVPB 100 mls/hr Q8H-IV [facility] Administration Ertapenem 1 gm/ Sodium 50 mls @ 100 mls/hr 08/03/16 10:00 08/03/16 09:24 Chloride IVPB 100 mls/hr DAILY [facility] Administration Protocol Insulin Aspart 1 vial 07/27/16 22:00 08/03/16 13:20 Novolog Vial Sliding Scale - SQ 2 units ACHS [facility] Administration Protocol Multivitamins/Minerals/Vitamin C 1 tab 07/28/16 10:00 08/03/16 09:17 Tab-A-Vit - PO 1 tab DAILY [facility] Administration Ondansetron HCl 4 mg 07/27/16 19:04 Zofran Injection IVPB Q6H PRN NAUSEA Potassium Phos/Sodium Phos 1 packet 07/27/16 22:00 08/03/16 13:22 Phos-Nak Packet - PO 1 packet TID [facility] Administration Tamsulosin HCl 0.4 mg 07/28/16 08:30 08/03/16 09:16 Flomax - PO 0.4 mg DAILY@0830 [facility] Administration Vancomycin HCl 125 mg 08/02/16 18:00 08/03/16 13:18 Vancomycin Oral Solution PO 125 mg Q6HPO [facility] Administration Microbiology 08/02/16 07:15 Blood - Peripheral Venous Blood Culture - Preliminary NO GROWTH OBTAINED AFTER 24 HOURS, INCUBATION TO CONTINUE FOR 4 DAYS. 08/02/16 06:55 Blood - Peripheral Venous Blood Culture - Preliminary NO GROWTH OBTAINED AFTER 24 HOURS, INCUBATION TO CONTINUE FOR 4 DAYS. 07/27/16 10:35 Blood - Peripheral Venous Blood Culture - Final NO GROWTH AFTER 5 DAYS INCUBATION 07/27/16 10:25 Blood - Peripheral Venous Blood Culture - Final NO GROWTH AFTER 5 DAYS INCUBATION 07/27/16 02:45 Urine - Urine - Catheterized Urine Culture - Final Escherichia Coli [employer] Enterococcus Faecium 07/27/16 17:15 Stool Clostridium difficile Antigen (VICTOR M) - Final 07/27/16 17:15 Stool Clostridium difficile Toxin Assay - Final ASSESSMENT/PLAN: 80 year old male with a PMH of AAA, HTN, DM type 2, hypothyroidism, anemia, h/o of C.Diff in March 2016, CAD who was brought to the hospital from [facility] for hypothermia. He originally was admitted to the floor but was found to be hypothermic and transferred to the ICU. Hypothermia: -the pt had temp 93 recorded -sepsis protocol -still has temp on lower side Septic shock due to UTI: -hypothermia, hypotension, and leukocytosis -cont Dextrose -continue antibiotics Flagyl -does not need pressors -follow up urine cultures possible HCAP -patient with chest pain and productive cough -ID consulted -f/u antibiotics Diarrhea -secondary to c. diff -continue flagyl Chest pain -lower suspicion for ACS -f/u cardiac enzymes -consult cardiology Hypokalemia: -repleated -will monitor Hypomagnesemia: -repleated Anemia -chronic -continue iron -monitor tomorrow Chronic systolic CHF (congestive heart failure) -not in exacerbation HTN -currently hypotensive -holding toprol xl Hypernatremia -fluids to D5 1/2NS Disposition: transfer to telemetry later today Problem List - Problems (1) Anemia Code(s): D64.9 - ANEMIA, UNSPECIFIED Qualifiers: Anemia type: other cause Other causes of anemia: other cause, not classified Qualified Code(s): D64.89 - Other specified anemias (2) Chest pain Code(s): R07.9 - CHEST PAIN, UNSPECIFIED (3) Chronic systolic CHF (congestive heart failure) Code(s): I50.22 - CHRONIC SYSTOLIC (CONGESTIVE) HEART FAILURE (4) HCAP (healthcare-associated pneumonia) Code(s): J18.9 - PNEUMONIA, UNSPECIFIED ORGANISM (5) Hypernatremia Code(s): E87.0 - HYPEROSMOLALITY AND HYPERNATREMIA (6) Hypoxia Code(s): R09.02 - HYPOXEMIA (7) Pneumonia Code(s): J18.9 - PNEUMONIA, UNSPECIFIED ORGANISM Qualifiers: Pneumonia type: due to unspecified organism Laterality: right Lung location: lower lobe of lung Qualified Code(s): J18.1 - Lobar pneumonia, unspecified organism (8) Septic shock Code(s): A41.9 - SEPSIS, UNSPECIFIED ORGANISM R65.21 - SEVERE SEPSIS WITH SEPTIC SHOCK (9) UTI (urinary tract infection) Code(s): N39.0 - URINARY TRACT INFECTION, SITE NOT SPECIFIED (10) Bradycardia Code(s): R00.1 - BRADYCARDIA, UNSPECIFIED (11) CAD (coronary artery disease) Code(s): I25.10 - ATHSCL HEART DISEASE OF [place] CORONARY ARTERY W/O ANG PCTRS (12) Dehydration Code(s): E86.0 - DEHYDRATION (13) Diabetes mellitus type 2 in nonobese Code(s): E11.9 - TYPE 2 DIABETES MELLITUS WITHOUT COMPLICATIONS (14) Diarrhea Code(s): R19.7 - DIARRHEA, UNSPECIFIED Qualifiers: Diarrhea type: infectious Qualified Code(s): A09 - Infectious gastroenteritis and colitis, unspecified (15) HLD (hyperlipidemia) Code(s): E78.5 - HYPERLIPIDEMIA, UNSPECIFIED (16) HTN (hypertension) Code(s): I10 - ESSENTIAL (PRIMARY) HYPERTENSION Visit type - Emergency Visit Emergency Visit: Yes ED Registration Date: 07/26/16 Care time: The patient presented to the Emergency Department on the above date and was hospitalized for further evaluation of their emergent condition. - New Patient This patient is new to me today: No - Critical Care Critical Care patient: No
[2016-08-03] MEDS ORDERED: SODIUM CHLORIDE 1,000 ML IV SCH ×2 (13:30→16:00)
--- NOTE | 2016-08-03 14:27 | PN ---
Progress Note, Physician History of Present Illness: patient still stabilizing still continues to be hypothermic but improving mental status not there yet low bp heart rate in 60 - Current Medication List Current Medications: Active Medications Acetaminophen (Tylenol -) 650 mg PO Q4H PRN PRN Reason: FEVER OR PAIN Last Admin: 08/03/16 09:29 Dose: 650 mg Ascorbic Acid (Vitamin C -) 500 mg PO TID [facility] Last Admin: 08/03/16 13:21 Dose: 500 mg Aspirin (Asa -) 81 mg PO BID [facility] Last Admin: 08/03/16 09:16 Dose: 81 mg Cyanocobalamin (Vitamin B12 -) 1,000 mcg PO DAILY [facility] Last Admin: 08/03/16 09:17 Dose: 1,000 mcg Enoxaparin Sodium (Lovenox -) 40 mg SQ DAILY [facility] Last Admin: 08/03/16 09:17 Dose: 40 mg Ferrous Sulfate (Feosol -) 325 mg PO TID [facility] Last Admin: 08/03/16 13:21 Dose: 325 mg Folic Acid (Folic Acid -) 1 mg PO DAILY [facility] Last Admin: 08/03/16 09:17 Dose: 1 mg Guaifenesin (Robitussin -) 10 ml PO Q8H PRN Last Admin: 07/29/16 22:00 Dose: 10 ml Dextrose/Sodium Chloride (D5-1/2ns+40 Meq Kcl -) 1,000 mls @ 100 mls/hr IV ASDIR [facility] Last Admin: 08/03/16 09:11 Dose: 100 mls/hr Metronidazole (Flagyl 500mg Premixed Ivpb -) 100 mls @ 100 mls/hr IVPB Q8H-IV [facility] Last Admin: 08/03/16 09:16 Dose: 100 mls/hr Ertapenem 1 gm/ Sodium (Chloride) 50 mls @ 100 mls/hr IVPB DAILY [facility] PRN Reason: Protocol Last Admin: 08/03/16 09:24 Dose: 100 mls/hr Sodium Chloride (Normal Saline -) 1,000 mls @ 500 mls/hr IV ASDIR [facility] Stop: 08/03/16 15:29 Insulin Aspart (Novolog Vial Sliding Scale -) 1 vial SQ ACHS [facility] PRN Reason: Protocol Last Admin: 08/03/16 13:20 Dose: 2 units Multivitamins/Minerals/Vitamin C (Tab-A-Vit -) 1 tab PO DAILY [facility] Last Admin: 08/03/16 09:17 Dose: 1 tab Ondansetron HCl (Zofran Injection) 4 mg IVPB Q6H PRN PRN Reason: NAUSEA Potassium Phos/Sodium Phos (Phos-Nak Packet -) 1 packet PO TID [facility] Last Admin: 08/03/16 13:22 Dose: 1 packet Tamsulosin HCl (Flomax -) 0.4 mg PO DAILY@0830 [facility] Last Admin: 08/03/16 09:16 Dose: 0.4 mg Vancomycin HCl (Vancomycin Oral Solution) 125 mg PO Q6HPO [facility] Last Admin: 08/03/16 13:18 Dose: 125 mg - Objective Vital Signs: Vital Signs Temperature 97.2 F L 08/03/16 12:30 Pulse Rate 46 L 08/03/16 14:00 Respiratory Rate 15 08/03/16 14:00 Blood Pressure 87/45 08/03/16 14:00 O2 Sat by Pulse Oximetry (%) 100 08/03/16 14:00 Constitutional: Yes: No Distress, Calm Cardiovascular: Yes: Bradycardia, Other Respiratory: Yes: Regular, CTA Bilaterally Gastrointestinal: Yes: Normal Bowel Sounds, Soft Musculoskeletal: Yes: WNL Extremities: Yes: WNL Neurological: Yes: Alert, Other Psychiatric: Yes: Other Labs: CBC, BMP 08/02/16 06:55 08/03/16 05:20 INR, PTT INR 1.17 (0.82-1.09) H 07/26/16 19:07 - ....Imaging Chest X-ray: Report Reviewed, Image Reviewed Assessment/Plan Problem List - Problems (1) Septic shock Code(s): A41.9 - SEPSIS, UNSPECIFIED ORGANISM R65.21 - SEVERE SEPSIS WITH SEPTIC SHOCK (2) HCAP (healthcare-associated pneumonia) Code(s): J18.9 - PNEUMONIA, UNSPECIFIED ORGANISM (3) UTI (urinary tract infection) Code(s): N39.0 - URINARY TRACT INFECTION, SITE NOT SPECIFIED (4) Diarrhea Code(s): R19.7 - DIARRHEA, UNSPECIFIED Qualifiers: Diarrhea type: unspecified type Qualified Code(s): R19.7 - Diarrhea, unspecified (5) Chest pain Code(s): R07.9 - CHEST PAIN, UNSPECIFIED (6) Anemia Code(s): D64.9 - ANEMIA, UNSPECIFIED Qualifiers: Anemia type: other cause Other causes of anemia: other cause, not classified Qualified Code(s): D64.89 - Other specified anemias (7) Chronic systolic CHF (congestive heart failure) Code(s): I50.22 - CHRONIC SYSTOLIC (CONGESTIVE) HEART FAILURE (8) CAD (coronary artery disease) Code(s): I25.10 - ATHSCL HEART DISEASE OF [place] CORONARY ARTERY W/O ANG PCTRS (9) Dehydration Code(s): E86.0 - DEHYDRATION (10) HTN (hypertension) Code(s): I10 - ESSENTIAL (PRIMARY) HYPERTENSION (11) Hypernatremia Code(s): E87.0 - HYPEROSMOLALITY AND HYPERNATREMIA 12 hypothermia 13 cdiff plan conitnue current mgmt will await all results no other plan at the moment watch how dirrhoea rest as per icu keep warming consider cardio cc time 40 min
[2016-08-03] MEDS ORDERED: LACTATED RINGERS SOLUTION 1000 ML INFUS.BAG IV ONE (21:20)
[2016-08-04] MEDS: VANCOMYCIN 250 MG/5 ML ORAL SOLUTION PO SCH ×4 (00:13→17:06)
[2016-08-04] MEDS: METRONIDAZOLE 500 MG PREMIXED 100 ML IVPB SCH ×3 (01:34→17:05)
[2016-08-04 07:10] LABS: MCH 33.8 pg (25.7-33.7); MCHC 32.8 g/dl (32.0-35.9); MEAN CELL VOLUME 102.9 fl (80-96); MEAN PLT VOLUME 8.9 fl (7.5-11.1); PLATELET COUNT 246 K/MM3 (134-434); RDW 16.2 % (11.9-15.9); WHITE BLOOD COUNT 9.4 K/mm3 (4.0-10.0)
[2016-08-04] MEDS: FERROUS SO4 325 MG TABLET (FP) PO SCH ×3 (07:35→21:33)
[2016-08-04] MEDS: NAPH,MB-DB/K PH,MBDB POWDER PACKET PO SCH ×3 (07:35→21:33)
[2016-08-04] MEDS: ASCORBIC ACID 500 MG TABLET (FP) PO SCH ×3 (07:36→21:33)
[2016-08-04] MEDS: INSULIN SLIDING SCALE (NOVOLOG) 1 VIAL SQ SCH ×4 (07:37→21:24)
[2016-08-04 07:38] LABS: ALBUMIN 1.3 g/dl (3.4-5.0); ANION GAP 9 (8-16); BILIRUBIN,TOTAL 0.5 mg/dL (0.2-1.0); CALCIUM 7.7 mg/dL (8.5-10.1); CO2 15 mmol/L (21-32); COCKROFT - GAULT 91.3; CREATININE 0.6 mg/dL (0.7-1.3); GLUCOSE,RANDOM 61 mg/dL (74-106); SGOT/AST 13 U/L (15-37); SGPT/ALT 10 U/L (12-78); TOT PROT 4.7 g/dl (6.4-8.2)
[2016-08-04 07:39] LABS: ALK PHOS 71 U/L (45-117)
[2016-08-04] MEDS ORDERED: SODIUM CHLORIDE 500 ML IV STA (07:45)
[2016-08-04] MEDS ORDERED: SODIUM CHLORIDE 0.45% 1,000 ML IV SCH (08:15)
[2016-08-04] MEDS: TAMSULOSIN HCL 0.4 MG CAP.ER.24H (FP) PO SCH (08:28)
--- NOTE | 2016-08-04 09:06 | PN ---
Progress Note (short form) - Note Progress Note: cc: sob s: denies cp, sob, palps, dizziness. Appears weak endorses dizziness today. ++ drop in bp. getting IVF bolus. + cough. o: Current Medications Acetaminophen (Tylenol -) 650 mg PO Q4H PRN PRN Reason: FEVER OR PAIN Last Admin: 08/03/16 09:29 Dose: 650 mg Ascorbic Acid (Vitamin C -) 500 mg PO TID [facility] Last Admin: 08/03/16 05:21 Dose: 500 mg Aspirin (Asa -) 81 mg PO BID [facility] Last Admin: 08/03/16 09:16 Dose: 81 mg Cyanocobalamin (Vitamin B12 -) 1,000 mcg PO DAILY [facility] Last Admin: 08/03/16 09:17 Dose: 1,000 mcg Enoxaparin Sodium (Lovenox -) 40 mg SQ DAILY [facility] Last Admin: 08/03/16 09:17 Dose: 40 mg Ferrous Sulfate (Feosol -) 325 mg PO TID [facility] Last Admin: 08/03/16 05:22 Dose: 325 mg Folic Acid (Folic Acid -) 1 mg PO DAILY [facility] Last Admin: 08/03/16 09:17 Dose: 1 mg Guaifenesin (Robitussin -) 10 ml PO Q8H PRN Last Admin: 07/29/16 22:00 Dose: 10 ml Dextrose/Sodium Chloride (D5-1/2ns+40 Meq Kcl -) 1,000 mls @ 100 mls/hr IV ASDIR [facility] Last Admin: 08/03/16 09:11 Dose: 100 mls/hr Metronidazole (Flagyl 500mg Premixed Ivpb -) 100 mls @ 100 mls/hr IVPB Q8H-IV [facility] Last Admin: 08/03/16 09:16 Dose: 100 mls/hr Ertapenem 1 gm/ Sodium (Chloride) 50 mls @ 100 mls/hr IVPB DAILY [facility] PRN Reason: Protocol Last Admin: 08/03/16 09:24 Dose: 100 mls/hr Insulin Aspart (Novolog Vial Sliding Scale -) 1 vial SQ ACHS [facility] PRN Reason: Protocol Last Admin: 08/03/16 06:14 Dose: Not Given Multivitamins/Minerals/Vitamin C (Tab-A-Vit -) 1 tab PO DAILY [facility] Last Admin: 08/03/16 09:17 Dose: 1 tab Ondansetron HCl (Zofran Injection) 4 mg IVPB Q6H PRN PRN Reason: NAUSEA Potassium Phos/Sodium Phos (Phos-Nak Packet -) 1 packet PO TID [facility] Last Admin: 08/03/16 05:22 Dose: 1 packet Tamsulosin HCl (Flomax -) 0.4 mg PO DAILY@0830 [facility] Last Admin: 08/03/16 09:16 Dose: 0.4 mg Vancomycin HCl (Vancomycin Oral Solution) 125 mg PO Q6HPO [facility] Last Admin: 08/03/16 05:22 Dose: 125 mg Last Vital Signs Temp Pulse Resp BP Pulse Ox 97.0 F L 61 12 74/51 96 08/03/16 11:27 08/03/16 11:27 08/03/16 11:27 08/03/16 11:27 08/02/16 21:00 Intake & Output 07/31/16 08/01/16 08/02/16 08/03/16 23:59 23:59 23:59 23:59 Intake Total 1560 2960 2655 1020 Balance 1560 2960 2655 1020 Weight 152 lb 12.8 oz 152 lb 3.2 oz 144 lb 14.4 oz 147 lb 6.4 oz nad no jvd, cachectic rrr s1s2 no mrg bibasilar crackles/rhonchi, nl eff awake, alert, appropriate abd nt nd pos bs no jaundice diaphoresis no le e/c/c mild chest wall tender to palp Laboratory Tests 08/03/16 05:20 Sodium 148 H Potassium 4.3 Chloride 124 H Carbon Dioxide 16 L Anion Gap 8 BUN 10 Creatinine 0.6 L ecg 07/26/16: sr 59, nl intervals, no ischemic changes cxr: no chf mibi 10/2011: large inferolateral scar, no ischemia, lvef 35% tele: sb. pvc's. two episodes of self-limited ventricular escape rhythm. echo 07/2016: tds/limited views: grossly nl lv size/fcn, mild mr a/p: 80 m hx htn, hld, dm, cad/DC (seen on prior mibi), syst chf, sent from [place] for infection/sepsis. sepsis: -bp initially improved with ivfs, now worsening of hypotension with sx's of dizziness. receiving IVF bolus -cont abx per ID, mgm't per ICU htn: -septic, bp on low side, holding htn meds. poor po intake, on IVF hld: -stable, not on statin on home med list, outpt f/u cad/mi: -prior mibi showing infarct, no ischemia -no signs acs, trop neg x2 -current cp seems MSK after a recent fall -cont home asa chronic systolic chf: -no signs vol overload -monitor vol status with ivfs, but no signs of volume overload at this time. -echo here showing nl lvef -not on bb due to bradycardia bradycardia: -pt with known sinus tashia evaluated with holter on prior admit that showed no pathologic bradycardia -tele here with sr in 40s at times so have stopped bb, avoid meds that cause bradycardia - avoid qt prolonging drugs when possible. cct 35 min
--- NOTE | 2016-08-04 09:06 | PN ---
Progress Note (short form) - Note Progress Note: Patient seen and examined in ICU. Still hypothermic and hypotensive Afebrile Alert, awake, interactive in conversation. Denies chest pain, shortness of breath, palpitation or dizziness. O/E Vital Signs Period Temp Pulse Resp BP Sys/Martino Pulse Ox Last 24 Hr 94.3 F-97.3 F 46-66 12-22 67-91/41-72 94-100 Heartt regular Lungs clear' Abd soft Ext no edema Not cold Current Medications Acetaminophen (Tylenol -) 650 mg PO Q4H PRN PRN Reason: FEVER OR PAIN Last Admin: 08/03/16 09:29 Dose: 650 mg Ascorbic Acid (Vitamin C -) 500 mg PO TID [facility] Last Admin: 08/03/16 05:21 Dose: 500 mg Aspirin (Asa -) 81 mg PO BID [facility] Last Admin: 08/03/16 09:16 Dose: 81 mg Cyanocobalamin (Vitamin B12 -) 1,000 mcg PO DAILY [facility] Last Admin: 08/03/16 09:17 Dose: 1,000 mcg Enoxaparin Sodium (Lovenox -) 40 mg SQ DAILY [facility] Last Admin: 08/03/16 09:17 Dose: 40 mg Ferrous Sulfate (Feosol -) 325 mg PO TID [facility] Last Admin: 08/03/16 05:22 Dose: 325 mg Folic Acid (Folic Acid -) 1 mg PO DAILY [facility] Last Admin: 08/03/16 09:17 Dose: 1 mg Guaifenesin (Robitussin -) 10 ml PO Q8H PRN Last Admin: 07/29/16 22:00 Dose: 10 ml Dextrose/Sodium Chloride (D5-1/2ns+40 Meq Kcl -) 1,000 mls @ 100 mls/hr IV ASDIR [facility] Last Admin: 08/03/16 09:11 Dose: 100 mls/hr Metronidazole (Flagyl 500mg Premixed Ivpb -) 100 mls @ 100 mls/hr IVPB Q8H-IV [facility] Last Admin: 08/03/16 09:16 Dose: 100 mls/hr Ertapenem 1 gm/ Sodium (Chloride) 50 mls @ 100 mls/hr IVPB DAILY [facility] PRN Reason: Protocol Last Admin: 08/03/16 09:24 Dose: 100 mls/hr Insulin Aspart (Novolog Vial Sliding Scale -) 1 vial SQ ACHS [facility] PRN Reason: Protocol Last Admin: 08/03/16 06:14 Dose: Not Given Multivitamins/Minerals/Vitamin C (Tab-A-Vit -) 1 tab PO DAILY [facility] Last Admin: 08/03/16 09:17 Dose: 1 tab Ondansetron HCl (Zofran Injection) 4 mg IVPB Q6H PRN PRN Reason: NAUSEA Potassium Phos/Sodium Phos (Phos-Nak Packet -) 1 packet PO TID [facility] Last Admin: 08/03/16 05:22 Dose: 1 packet Tamsulosin HCl (Flomax -) 0.4 mg PO DAILY@0830 [facility] Last Admin: 08/03/16 09:16 Dose: 0.4 mg Vancomycin HCl (Vancomycin Oral Solution) 125 mg PO Q6HPO [facility] Last Admin: 08/03/16 05:22 Dose: 125 mg CBC, BMP 08/04/16 05:38 08/04/16 05:38 Microbiology 08/02/16 07:15 Blood - Peripheral Venous Blood Culture - Preliminary NO GROWTH OBTAINED AFTER 24 HOURS, INCUBATION TO CONTINUE FOR 4 DAYS. 08/02/16 06:55 Blood - Peripheral Venous Blood Culture - Preliminary NO GROWTH OBTAINED AFTER 24 HOURS, INCUBATION TO CONTINUE FOR 4 DAYS. A&P 1. Hypothermia Etiology is not clear Sepsis work up in progress. (2) UTI (urinary tract infection) Assessment/Plan: Continue IV abx ID follow up appreciated. Code(s): N39.0 - URINARY TRACT INFECTION, SITE NOT SPECIFIED (3) C diff colitis Assessment/Plan: -Continue oral flagyl Code(s): R19.7 - DIARRHEA, UNSPECIFIED Qualifiers: Diarrhea type: unspecified type Qualified Code(s): R19.7 - Diarrhea, unspecified (4) Anemia Assessment/Plan: -chronic and stable Code(s): D64.9 - ANEMIA, UNSPECIFIED Qualifiers: Anemia type: other cause Other causes of anemia: other cause, not classified Qualified Code(s): D64.89 - Other specified anemias (5) Chronic systolic CHF (congestive heart failure) Assessment/Plan: -not in exacerbation -continue hydration for sepsis Code(s): I50.22 - CHRONIC SYSTOLIC (CONGESTIVE) HEART FAILURE (6) CAD (coronary artery disease) -continue home regimen -cardiology following Code(s): I25.10 - ATHSCL HEART DISEASE OF [place] CORONARY ARTERY W/O ANG PCTRS (7) HTN (hypertension) Assessment/Plan: Code(s): I10 - ESSENTIAL (PRIMARY) HYPERTENSION Now hypotensive. (8) Hypernatremia Assessment/Plan: -Continue D5 1/NS Renal consulted. Code(s): E87.0 - HYPEROSMOLALITY AND HYPERNATREMIA
[2016-08-04 09:25] LABS: THYROID STIMULATING HORMONE 6.14 uIU/ml (0.358-3.74)
[2016-08-04] MEDS: ERTAPENEM SODIUM 1 GM in SODIUM CHLORIDE 50 ML IVPB SCH (09:27)
[2016-08-04] MEDS: ASPIRIN 81 MG CHEWABLE TABLETS PO SCH ×2 (09:29→21:33)
[2016-08-04] MEDS: FOLIC ACID 1 MG TABLET (FP) PO SCH (09:29)
[2016-08-04] MEDS: ENOXAPARIN NA (PORCINE) 40 MG/0.4 ML DISP.SYRIN SQ SCH (09:29)
[2016-08-04] MEDS: MULTIVITAMINS (DAILY MVI) TABLET (FP) PO SCH (09:30)
[2016-08-04] MEDS: ACETAMINOPHEN 325 MG TABLET (FP) PO PRN (09:30)
--- NOTE | 2016-08-04 10:46 | PN ---
Progress Note (short form) - Note Progress Note: Renal Consult for Metabolic acidosis and Hypernatremia This is a 80 year old Gentleman with PMhx of AAA, Hypertension, GERD, DM Type 2 , Anemia, C. Diff colitis, Hyperlipidemia, CAD with Hx of [place] presented with hypothermia and found to have Sepsis related to UTI and C. Diff Colitis with diarrhea with metabolic acidosis and hypernatremia. Pt has been having diarreha throughtout the hostpial course. BP has been margianl. No Lactic acidosis. No renal failure. PMhx: as above Allergies: NDKA Family Hx: NC Social Hx: No T/A/D ROS: No chest pain, SOB, N/V.Good urine output. + diarrhea and crampy abd discomfort. No fever. NO chills. Home Medications Medication Instructions Recorded Aa/Hydrolyzed Collagen, Whey [Lps 15 grams PO BID 04/02/16 Neutral Flavor Liquid] Acetaminophen [Tylenol] 325 mg PO Q6H PRN 04/02/16 Ascorbate Calcium [Vitamin C] 500 mg PO TID 04/02/16 Aspirin [ASA -] 81 mg PO BID 04/02/16 Cyanocobalamin (Vitamin B-12) 1,000 mcg PO DAILY 04/02/16 [B-12] Docusate Sodium [Colace -] 100 mg PO DAILY PRN 04/02/16 Folic Acid 1 mg PO DAILY 04/02/16 Guaifenesin 200 mg PO Q4H PRN 04/02/16 Insulin Regular, Human [Humulin R 100 units SQ ASDIR 04/02/16 U-500 Kwikpen] Iron 325 mg PO TID 04/02/16 Menthol/Zinc Oxide [Calmoseptine 0 gm TP DAILY 04/02/16 Ointment] Metoprolol Succinate [Toprol Xl] 25 mg PO DAILY 04/02/16 Multivitamins [Tab-A-Vit -] 1 tab PO DAILY 04/02/16 Oseltamivir Phosphate [Tamiflu] 75 mg PO DAILY 04/02/16 Polyethylene Glycol 3350 [Miralax 17 grams PO DAILY PRN 04/02/16 119 gm Btl -] Tamsulosin HCl [Flomax] 0.4 mg PO DAILY 04/02/16 Vital Signs Temperature 97.2 F L 08/04/16 10:19 Pulse Rate 48 L 08/04/16 10:19 Respiratory Rate 18 08/04/16 10:19 Blood Pressure 89/51 08/04/16 10:19 O2 Sat by Pulse Oximetry (%) 94 L 08/04/16 08:00 Intake & Output 08/01/16 08/02/16 08/03/16 08/04/16 23:59 23:59 23:59 23:59 Intake Total 2960 2655 4080 0 Balance 2960 2655 4080 2059 Weight 152 lb 3.2 oz 144 lb 14.4 oz 147 lb 6.4 oz 147 lb 6.4 oz Gen: NAD, awake and alert HEENT: NC/AT, MMM, No JVD CVS: RRR, No M/R Lungs :Dec Bs at lung bases but no rales, wheeze Abd: soft NT/ND Ext: No edema, think extremities, no cyanosis or clubbing Neuro: Awake and alert CBC, BMP 08/04/16 05:38 08/04/16 05:38 Laboratory Tests 07/27/16 08/02/16 08/04/16 02:39 11:20 05:38 ABG pH 7.35 ABG pCO2 at Pt Temp 25.4 L Calcium 7.7 L Total Bilirubin 0.5 D AST 13 L D ALT 10 L Alkaline Phosphatase 71 Albumin 1.3 L Urine pH 5.0 D Ur Specific [place] 1.015 Urine Protein 1+ H Urine Blood 1+ H Current Medications Acetaminophen (Tylenol -) 650 mg PO Q4H PRN PRN Reason: FEVER OR PAIN Last Admin: 08/04/16 09:30 Dose: 650 mg Ascorbic Acid (Vitamin C -) 500 mg PO TID [facility] Last Admin: 08/04/16 07:36 Dose: Not Given Aspirin (Asa -) 81 mg PO BID [facility] Last Admin: 08/04/16 09:29 Dose: 81 mg Cyanocobalamin (Vitamin B12 -) 1,000 mcg PO DAILY [facility] Last Admin: 08/03/16 09:17 Dose: 1,000 mcg Enoxaparin Sodium (Lovenox -) 40 mg SQ DAILY [facility] Last Admin: 08/04/16 09:29 Dose: 40 mg Ferrous Sulfate (Feosol -) 325 mg PO TID [facility] Last Admin: 08/04/16 07:35 Dose: Not Given Folic Acid (Folic Acid -) 1 mg PO DAILY [facility] Last Admin: 08/04/16 09:29 Dose: 1 mg Guaifenesin (Robitussin -) 10 ml PO Q8H PRN Last Admin: 07/29/16 22:00 Dose: 10 ml Metronidazole (Flagyl 500mg Premixed Ivpb -) 100 mls @ 100 mls/hr IVPB Q8H-IV [facility] Last Admin: 08/04/16 09:27 Dose: 100 mls/hr Ertapenem 1 gm/ Sodium (Chloride) 50 mls @ 100 mls/hr IVPB DAILY [facility] PRN Reason: Protocol Last Admin: 08/04/16 09:27 Dose: 100 mls/hr Sodium Chloride (1/2 Normal Saline) 1,000 mls @ 100 mls/hr IV ASDIR [facility] Last Admin: 08/04/16 08:27 Dose: 100 mls/hr Insulin Aspart (Novolog Vial Sliding Scale -) 1 vial SQ ACHS [facility] PRN Reason: Protocol Last Admin: 08/04/16 07:37 Dose: Not Given Multivitamins/Minerals/Vitamin C (Tab-A-Vit -) 1 tab PO DAILY [facility] Last Admin: 08/04/16 09:30 Dose: 1 tab Ondansetron HCl (Zofran Injection) 4 mg IVPB Q6H PRN PRN Reason: NAUSEA Potassium Phos/Sodium Phos (Phos-Nak Packet -) 1 packet PO TID [facility] Last Admin: 08/04/16 07:35 Dose: Not Given Tamsulosin HCl (Flomax -) 0.4 mg PO DAILY@0830 [facility] Last Admin: 08/04/16 08:28 Dose: Not Given Vancomycin HCl (Vancomycin Oral Solution) 125 mg PO Q6HPO [facility] Last Admin: 08/04/16 07:35 Dose: 125 mg A/P 80 year old Gentleman with PMhx of AAA, Hypertension, GERD, DM Type 2, Anemia, C. Diff colitis, Hyperlipidemia, CAD with Hx of [place] presented with hypothermia and found to have Sepsis related to UTI and C. Diff Colitis with diarrhea with metabolic acidosis and hypernatremia. #Combined Anion gap and non-anion gap metabolic acidosis with resp compensation etiology of NAG metabolic acidosis is likely diarrhea but cannot r/o RTA Check urine studies for Urine anion gap and Ph etiology of AG acidosis unclear (normal Renal function, lactic acid), check UA for Ketones D/c 1/2 NS at start D5w with 75 meq of NaHCO3 at 75cc per hour Trend serum Bicarb if CO2 less then 15 repeat abg #Hypernatremia due to water loss with diarrhea and poor oral intake continue hypotonic IVF #Sepsis/Hypothermia/Cdiff continue Abx as per ICU/ID supportive Care #Hypophosphatemia Trend Phso daily if < 2, would give IV K-phos continue oral neutraphos daily #Anemia Transfuse as per ICU protocol Thank you for this referral Will follow Medardo Huerta DO
[2016-08-04] MEDS: CYANOCOBALAMIN 1,000 MCG TABLET (FP) PO SCH (10:59)
[2016-08-04] MEDS ORDERED: PT OWN MED DRAWER 7, Y5N ONE ×2 (11:18→21:27)
[2016-08-04] MEDS: LEVOTHYROXINE NA 25 MCG TABLET (FP) PO SCH (11:21)
[2016-08-04 11:36] LABS: FREE T4 1.12 ng/dl (0.76-1.16)
[2016-08-04 11:47] LABS: URINE APPEARANCE SLCLOUDY; URINE BILIRUBIN NEGATIVE (NEGATIVE); URINE BLOOD 3+ (NEGATIVE); URINE COLOR STRAW; URINE GLUCOSE (UA) NEGATIVE (NEGATIVE); URINE KETONE NEGATIVE (NEGATIVE); URINE LEUK ESTERASE 3+ (NEGATIVE); URINE NITRITE NEGATIVE (NEGATIVE); URINE PROTEIN NEGATIVE (NEGATIVE); URINE UROBILINOGEN NEGATIVE E.U./dl (0.2-1.0)
--- NOTE | 2016-08-04 11:48 | PN ---
Physical Exam: SUBJECTIVE: Patient seen and examined. He is complaining of lack of appetite and diarrhea. No overnight events, but he is still hypotensive. OBJECTIVE: Vital Signs Period Temp Pulse Resp BP Sys/Martino Pulse Ox Last 24 Hr 96.5 F-97.3 F 46-66 13-19 67-91/41-60 94-100 GENERAL: The patient is awake, alert, and fully oriented, in no acute distress, lethargic. HEAD: Normal with no signs of trauma. EYES: extraocular movements intact, sclera anicteric, conjunctiva clear. ENT: oropharynx clear without exudates, moist mucous membranes. NECK: Trachea midline, supple. LUNGS: Breath sounds equal, diminished breath sounds bilaterally, no wheezes, no crackles, no accessory muscle use. HEART: Regular rate and rhythm, S1, S2 without murmur, rub or gallop. ABDOMEN: Soft, nontender, nondistended, normoactive bowel sounds, no guarding, no rebound, no hepatosplenomegaly, no masses. EXTREMITIES: warm, no edema, amputated left toe, no erythema. NEUROLOGICAL: Normal speech, gait not observed. PSYCH: Normal mood, normal affect. SKIN: Warm, dry, normal turgor, venous stasis changes in lower extremities B/L. Laboratory Results - last 24 hr 08/02/16 08/03/16 08/03/16 06:55 05:38 11:48 WBC RBC Hgb Hct MCV MCHC RDW Plt Count MPV Sodium Potassium Chloride Carbon Dioxide Anion Gap BUN Creatinine Creat Clearance w eGFR POC Glucometer 123.10991 178.48444 Random Glucose Calcium Total Bilirubin AST ALT Alkaline Phosphatase Total Protein Albumin TSH Free T4 Cortisol AM Sample 14.0 Blood Type Antibody Screen 08/03/16 08/03/16 08/04/16 17:00 22:58 05:38 WBC 9.4 RBC 2.47 L Hgb 8.4 L D Hct 25.4 L D MCV 102.9 H MCHC 32.8 RDW 16.2 H Plt Count 246 MPV 8.9 Sodium Potassium Chloride Carbon Dioxide Anion Gap BUN Creatinine Creat Clearance w eGFR POC Glucometer 114.19178 125.82537 Random Glucose Calcium Total Bilirubin AST ALT Alkaline Phosphatase Total Protein Albumin TSH Free T4 Cortisol AM Sample Blood Type Antibody Screen 08/04/16 08/04/16 08/04/16 05:38 05:38 06:37 WBC RBC Hgb Hct MCV MCHC RDW Plt Count MPV Sodium 148 H Potassium 4.1 Chloride 124 H Carbon Dioxide 15 L Anion Gap 9 BUN 9 Creatinine 0.6 L Creat Clearance w eGFR > 60 POC Glucometer 94.37708 Random Glucose 61 L D Calcium 7.7 L Total Bilirubin 0.5 D AST 13 L D ALT 10 L Alkaline Phosphatase 71 Total Protein 4.7 L Albumin 1.3 L TSH 6.14 H D Cancelled Free T4 1.12 Cortisol AM Sample Blood Type Antibody Screen 08/04/16 08/04/16 08:40 10:58 WBC RBC Hgb Hct MCV MCHC RDW Plt Count MPV Sodium Potassium Chloride Carbon Dioxide Anion Gap BUN Creatinine Creat Clearance w eGFR POC Glucometer 115.62963 Random Glucose Calcium Total Bilirubin AST ALT Alkaline Phosphatase Total Protein Albumin TSH Free T4 Cortisol AM Sample Blood Type A POSITIVE Antibody Screen Negative Active Medications Generic Name Dose Route Start Last Admin Trade Name Freq PRN Reason Stop Dose Admin Acetaminophen 650 mg 07/27/16 19:04 08/04/16 09:30 Tylenol - PO 650 mg Q4H PRN Administration FEVER OR PAIN Ascorbic Acid 500 mg 07/27/16 22:00 08/04/16 07:36 Vitamin C - PO Not Given TID OLESYA Aspirin 81 mg 07/27/16 22:00 08/04/16 09:29 Asa - PO 81 mg BID OLESYA Administration Cyanocobalamin 1,000 mcg 07/28/16 10:00 08/04/16 10:59 Vitamin B12 - PO Not Given DAILY OLESYA Enoxaparin Sodium 40 mg 07/28/16 10:00 08/04/16 09:29 Lovenox - SQ 40 mg DAILY OLESYA Administration Ferrous Sulfate 325 mg 07/27/16 22:00 08/04/16 07:35 Feosol - PO Not Given TID OLESYA Folic Acid 1 mg 07/28/16 10:00 08/04/16 09:29 Folic Acid - PO 1 mg DAILY OLESYA Administration Guaifenesin 10 ml 07/29/16 21:53 07/29/16 22:00 Robitussin - PO 10 ml Q8H PRN Administration Metronidazole 100 mls @ 100 mls/hr 08/02/16 18:00 08/04/16 09:27 Flagyl 500mg Premixed Ivpb - IVPB 100 mls/hr Q8H-IV OLESYA Administration Ertapenem 1 gm/ Sodium 50 mls @ 100 mls/hr 08/03/16 10:00 08/04/16 09:27 Chloride IVPB 100 mls/hr DAILY OLESYA Administration Protocol Sodium Bicarbonate 150 meq/ 1,150 mls @ 83 mls/hr 08/04/16 11:30 Dextrose IV Q13H OLESYA Insulin Aspart 1 vial 07/27/16 22:00 08/04/16 10:59 Novolog Vial Sliding Scale - SQ Not Given ACHS [facility] Protocol Levothyroxine Sodium 25 mcg 08/04/16 11:15 08/04/16 11:21 Synthroid - PO 25 mcg DAILY@0700 OLES[facility] Administration Multivitamins/Minerals/Vitamin C 1 tab 07/28/16 10:00 08/04/16 09:30 Tab-A-Vit - PO 1 tab DAILY [facility] Administration Ondansetron HCl 4 mg 07/27/16 19:04 Zofran Injection IVPB Q6H PRN NAUSEA Potassium Phos/Sodium Phos 1 packet 07/27/16 22:00 08/04/16 07:35 Phos-Nak Packet - PO Not Given TID OLESYA Tamsulosin HCl 0.4 mg 07/28/16 08:30 08/04/16 08:28 Flomax - PO Not Given DAILY@0830 [facility] Vancomycin HCl 125 mg 08/02/16 18:00 08/04/16 11:22 Vancomycin Oral Solution PO 125 mg Q6HPO OLESYA Administration ASSESSMENT/PLAN: 80 year old male with a PMH of AAA, HTN, DM type 2, hypothyroidism, anemia, h/o of C.Diff in March 2016, CAD who was brought to the hospital from [facility] for hypothermia. He originally was admitted to the floor but was found to be hypothermic and transferred to the ICU. Hypothermia: -the pt had temp 93 recorded -sepsis protocol -still has temp on lower side Septic shock due to UTI: -hypothermia, hypotension, and leukocytosis -cont Dextrose -continue antibiotics Flagyl -does not need pressors -follow up urine cultures Combined Anion gap and non-anion gap metabolic acidosis with resp compensation -etology not known -D/c 1/2 NS at start D5w with 75 meq of NaHCO3 at 75cc per hour -trend serum Bicarb -if CO2 less then 15 repeat abg Hypernatremia: -continue IVF -monitor possible HCAP -patient with chest pain and productive cough -CXR not changed today -ID consulted -f/u antibiotics Diarrhea -secondary to c. diff -continue flagyl Chest pain -lower suspicion for ACS -f/u cardiac enzymes -consult cardiology Hypokalemia: -repleated -will monitor Hypomagnesemia: -repleated Anemia -chronic -continue iron -monitor tomorrow Chronic systolic CHF (congestive heart failure) -not in exacerbation -f/u cardiology recommendation HTN -currently hypotensive -holding toprol xl Disposition: monitor in ICU Problem List - Problems (1) Anemia Code(s): D64.9 - ANEMIA, UNSPECIFIED Qualifiers: Anemia type: other cause Other causes of anemia: other cause, not classified Qualified Code(s): D64.89 - Other specified anemias (2) Chest pain Code(s): R07.9 - CHEST PAIN, UNSPECIFIED (3) Chronic systolic CHF (congestive heart failure) Code(s): I50.22 - CHRONIC SYSTOLIC (CONGESTIVE) HEART FAILURE (4) HCAP (healthcare-associated pneumonia) Code(s): J18.9 - PNEUMONIA, UNSPECIFIED ORGANISM (5) Hypernatremia Code(s): E87.0 - HYPEROSMOLALITY AND HYPERNATREMIA (6) Hypoxia Code(s): R09.02 - HYPOXEMIA (7) Pneumonia Code(s): J18.9 - PNEUMONIA, UNSPECIFIED ORGANISM Qualifiers: Pneumonia type: due to unspecified organism Laterality: right Lung location: lower lobe of lung Qualified Code(s): J18.1 - Lobar pneumonia, unspecified organism (8) Septic shock Code(s): A41.9 - SEPSIS, UNSPECIFIED ORGANISM R65.21 - SEVERE SEPSIS WITH SEPTIC SHOCK (9) UTI (urinary tract infection) Code(s): N39.0 - URINARY TRACT INFECTION, SITE NOT SPECIFIED (10) Bradycardia Code(s): R00.1 - BRADYCARDIA, UNSPECIFIED (11) CAD (coronary artery disease) Code(s): I25.10 - ATHSCL HEART DISEASE OF [place] CORONARY ARTERY W/O ANG PCTRS (12) Dehydration Code(s): E86.0 - DEHYDRATION (13) Diabetes mellitus type 2 in nonobese Code(s): E11.9 - TYPE 2 DIABETES MELLITUS WITHOUT COMPLICATIONS (14) Diarrhea Code(s): R19.7 - DIARRHEA, UNSPECIFIED Qualifiers: Diarrhea type: infectious Qualified Code(s): A09 - Infectious gastroenteritis and colitis, unspecified (15) HLD (hyperlipidemia) Code(s): E78.5 - HYPERLIPIDEMIA, UNSPECIFIED (16) HTN (hypertension) Code(s): I10 - ESSENTIAL (PRIMARY) HYPERTENSION Visit type - Emergency Visit Emergency Visit: Yes ED Registration Date: 07/26/16 Care time: The patient presented to the Emergency Department on the above date and was hospitalized for further evaluation of their emergent condition. - New Patient This patient is new to me today: No - Critical Care Critical Care patient: No Total Critical Care Time (in minutes): 45 Critical Care Statement: The care of this patient involved high complexity decision making to prevent further life threatening deterioration of the patient 's condition and/or to evalute & treat vital organ system(s) failure or risk of failure.
[2016-08-04] MEDS: SODIUM BICARBONATE 8.4% - 150 MEQ in DEXTROSE 5%-WATER - 1,000 ML IV SCH (11:50)
[2016-08-04 11:52] LABS: URINE HYALINE CAST 5 /lpf; URINE MUCUS RARE; URINE RBC 276 /hpf (0-3); URINE WBC 94 /hpf (3-5)
--- NOTE | 2016-08-04 13:41 | PN ---
Teaching Attending Note Name of Resident: Madina Saldana ATTENDING PHYSICIAN STATEMENT I saw and evaluated the patient. I reviewed the resident's note and discussed the case with the resident. I agree with the resident's findings and plan as documented. SUBJECTIVE: Pt seen and examined in the ICU. Episodes of hypotension yesterday responding to IVF boluses. Maintaining good urine output. OBJECTIVE: Last Vital Signs Temp Pulse Resp BP Pulse Ox 97.2 F L 48 L 22 84/54 94 L 08/04/16 10:19 08/04/16 12:00 08/04/16 12:00 08/04/16 12:00 08/04/16 08:00 Intake & Output 08/01/16 08/02/16 08/03/16 08/04/16 23:59 23:59 23:59 23:59 Intake Total 2960 2655 4080 2060 Output Total 800 Balance 2960 2655 4080 1260 Weight 152 lb 3.2 oz 144 lb 14.4 oz 147 lb 6.4 oz 147 lb 6.4 oz Gen: mildly tachypneic at rest Heart: RRR Lung: decreased breath sounds at the bases Abd: soft, nontender Ext: +edema CBC, BMP 08/04/16 05:38 08/04/16 05:38 Active Medications Acetaminophen (Tylenol -) 650 mg PO Q4H PRN PRN Reason: FEVER OR PAIN Last Admin: 08/04/16 09:30 Dose: 650 mg Ascorbic Acid (Vitamin C -) 500 mg PO TID [facility] Last Admin: 08/04/16 13:35 Dose: 500 mg Aspirin (Asa -) 81 mg PO BID [facility] Last Admin: 08/04/16 09:29 Dose: 81 mg Cyanocobalamin (Vitamin B12 -) 1,000 mcg PO DAILY [facility] Last Admin: 08/04/16 10:59 Dose: Not Given Enoxaparin Sodium (Lovenox -) 40 mg SQ DAILY [facility] Last Admin: 08/04/16 09:29 Dose: 40 mg Ferrous Sulfate (Feosol -) 325 mg PO TID [facility] Last Admin: 08/04/16 13:34 Dose: 325 mg Folic Acid (Folic Acid -) 1 mg PO DAILY [facility] Last Admin: 08/04/16 09:29 Dose: 1 mg Guaifenesin (Robitussin -) 10 ml PO Q8H PRN Last Admin: 07/29/16 22:00 Dose: 10 ml Metronidazole (Flagyl 500mg Premixed Ivpb -) 100 mls @ 100 mls/hr IVPB Q8H-IV [facility] Last Admin: 08/04/16 09:27 Dose: 100 mls/hr Ertapenem 1 gm/ Sodium (Chloride) 50 mls @ 100 mls/hr IVPB DAILY [facility] PRN Reason: Protocol Last Admin: 08/04/16 09:27 Dose: 100 mls/hr Sodium Bicarbonate 150 meq/ (Dextrose) 1,150 mls @ 83 mls/hr IV Q13H [facility] Last Admin: 08/04/16 11:50 Dose: 83 mls/hr Insulin Aspart (Novolog Vial Sliding Scale -) 1 vial SQ ACHS [facility] PRN Reason: Protocol Last Admin: 08/04/16 10:59 Dose: Not Given Levothyroxine Sodium (Synthroid -) 25 mcg PO DAILY@0700 [facility] Last Admin: 08/04/16 11:21 Dose: 25 mcg Multivitamins/Minerals/Vitamin C (Tab-A-Vit -) 1 tab PO DAILY [facility] Last Admin: 08/04/16 09:30 Dose: 1 tab Ondansetron HCl (Zofran Injection) 4 mg IVPB Q6H PRN PRN Reason: NAUSEA Potassium Phos/Sodium Phos (Phos-Nak Packet -) 1 packet PO TID [facility] Last Admin: 08/04/16 13:34 Dose: 1 packet Tamsulosin HCl (Flomax -) 0.4 mg PO DAILY@0830 [facility] Last Admin: 08/04/16 08:28 Dose: Not Given Vancomycin HCl (Vancomycin Oral Solution) 125 mg PO Q6HPO [facility] Last Admin: 08/04/16 11:22 Dose: 125 mg ASSESSMENT AND PLAN: UTI C Diff Colitis Pneumonia vs Atelectasis Septic Shock resolving CAD LV Systolic Dysfunction HTN Hypothyroidism - continue antibiotics per ID - change IVF to bicarb gtt - monitor urine output, creatinine - replete lytes - increase free water - start synthroid - aspiration precautions - attempt incentive spirometry - DVT prophylaxis
--- NOTE | 2016-08-04 16:27 | PN ---
Progress Note, Physician History of Present Illness: patient better hypothermia better still low bp and bradycardia mental status improving still loose stools rectal tube in place - Current Medication List Current Medications: Active Medications Acetaminophen (Tylenol -) 650 mg PO Q4H PRN PRN Reason: FEVER OR PAIN Last Admin: 08/04/16 09:30 Dose: 650 mg Ascorbic Acid (Vitamin C -) 500 mg PO TID [facility] Last Admin: 08/04/16 13:35 Dose: 500 mg Aspirin (Asa -) 81 mg PO BID [facility] Last Admin: 08/04/16 09:29 Dose: 81 mg Cyanocobalamin (Vitamin B12 -) 1,000 mcg PO DAILY [facility] Last Admin: 08/04/16 10:59 Dose: Not Given Enoxaparin Sodium (Lovenox -) 40 mg SQ DAILY [facility] Last Admin: 08/04/16 09:29 Dose: 40 mg Ferrous Sulfate (Feosol -) 325 mg PO TID [facility] Last Admin: 08/04/16 13:34 Dose: 325 mg Folic Acid (Folic Acid -) 1 mg PO DAILY [facility] Last Admin: 08/04/16 09:29 Dose: 1 mg Guaifenesin (Robitussin -) 10 ml PO Q8H PRN Last Admin: 07/29/16 22:00 Dose: 10 ml Metronidazole (Flagyl 500mg Premixed Ivpb -) 100 mls @ 100 mls/hr IVPB Q8H-IV [facility] Last Admin: 08/04/16 09:27 Dose: 100 mls/hr Ertapenem 1 gm/ Sodium (Chloride) 50 mls @ 100 mls/hr IVPB DAILY [facility] PRN Reason: Protocol Last Admin: 08/04/16 09:27 Dose: 100 mls/hr Sodium Bicarbonate 150 meq/ (Dextrose) 1,150 mls @ 83 mls/hr IV Q13H [facility] Last Admin: 08/04/16 11:50 Dose: 83 mls/hr Insulin Aspart (Novolog Vial Sliding Scale -) 1 vial SQ ACHS [facility] PRN Reason: Protocol Last Admin: 08/04/16 10:59 Dose: Not Given Levothyroxine Sodium (Synthroid -) 25 mcg PO DAILY@0700 [facility] Last Admin: 08/04/16 11:21 Dose: 25 mcg Multivitamins/Minerals/Vitamin C (Tab-A-Vit -) 1 tab PO DAILY [facility] Last Admin: 08/04/16 09:30 Dose: 1 tab Ondansetron HCl (Zofran Injection) 4 mg IVPB Q6H PRN PRN Reason: NAUSEA Potassium Phos/Sodium Phos (Phos-Nak Packet -) 1 packet PO TID [facility] Last Admin: 08/04/16 13:34 Dose: 1 packet Tamsulosin HCl (Flomax -) 0.4 mg PO DAILY@0830 [facility] Last Admin: 08/04/16 08:28 Dose: Not Given Vancomycin HCl (Vancomycin Oral Solution) 125 mg PO Q6HPO [facility] Last Admin: 08/04/16 11:22 Dose: 125 mg - Objective Vital Signs: Vital Signs Temperature 97.1 F L 08/04/16 15:00 Pulse Rate 42 L 08/04/16 14:40 Respiratory Rate 20 08/04/16 14:40 Blood Pressure 81/49 08/04/16 14:40 O2 Sat by Pulse Oximetry (%) 94 L 08/04/16 08:00 Constitutional: Yes: No Distress, Calm Cardiovascular: Yes: Bradycardia, Other Respiratory: Yes: Regular, CTA Bilaterally Gastrointestinal: Yes: Normal Bowel Sounds, Soft, Other (dirrhoea--rectal tube in place) Genitourinary: Yes: Other Musculoskeletal: Yes: WNL Extremities: Yes: WNL Neurological: Yes: Alert, Other Psychiatric: Yes: Other Labs: CBC, BMP 08/04/16 05:38 08/04/16 05:38 INR, PTT INR 1.17 (0.82-1.09) H 07/26/16 19:07 Assessment/Plan Problem List - Problems (1) Septic shock Code(s): A41.9 - SEPSIS, UNSPECIFIED ORGANISM R65.21 - SEVERE SEPSIS WITH SEPTIC SHOCK (2) HCAP (healthcare-associated pneumonia) Code(s): J18.9 - PNEUMONIA, UNSPECIFIED ORGANISM (3) UTI (urinary tract infection) Code(s): N39.0 - URINARY TRACT INFECTION, SITE NOT SPECIFIED (4) Diarrhea Code(s): R19.7 - DIARRHEA, UNSPECIFIED Qualifiers: Diarrhea type: unspecified type Qualified Code(s): R19.7 - Diarrhea, unspecified (5) Chest pain Code(s): R07.9 - CHEST PAIN, UNSPECIFIED (6) Anemia Code(s): D64.9 - ANEMIA, UNSPECIFIED Qualifiers: Anemia type: other cause Other causes of anemia: other cause, not classified Qualified Code(s): D64.89 - Other specified anemias (7) Chronic systolic CHF (congestive heart failure) Code(s): I50.22 - CHRONIC SYSTOLIC (CONGESTIVE) HEART FAILURE (8) CAD (coronary artery disease) Code(s): I25.10 - ATHSCL HEART DISEASE OF [place] CORONARY ARTERY W/O ANG PCTRS (9) Dehydration Code(s): E86.0 - DEHYDRATION (10) HTN (hypertension) Code(s): I10 - ESSENTIAL (PRIMARY) HYPERTENSION (11) Hypernatremia Code(s): E87.0 - HYPEROSMOLALITY AND HYPERNATREMIA 12 hypothermia 13 cdiff plan conitnue current mgmt cx results noted all negative so far plan is to resend urine and see if anything grows no other plan at the moment watch how dirrhoea rest as per icu keep warming consider cardio cc time 40 min
--- NOTE | 2016-08-04 18:07 | PN ---
Progress Note (short form) - Note Progress Note: cc: sob s: denies cp, sob, palps, dizziness. Remains hypotensive. Appears stronger then yesterday, less dizziness. o: Current Medications Acetaminophen (Tylenol -) 650 mg PO Q4H PRN PRN Reason: FEVER OR PAIN Last Admin: 08/04/16 09:30 Dose: 650 mg Ascorbic Acid (Vitamin C -) 500 mg PO TID [facility] Last Admin: 08/04/16 13:35 Dose: 500 mg Aspirin (Asa -) 81 mg PO BID [facility] Last Admin: 08/04/16 09:29 Dose: 81 mg Cyanocobalamin (Vitamin B12 -) 1,000 mcg PO DAILY [facility] Last Admin: 08/04/16 10:59 Dose: Not Given Enoxaparin Sodium (Lovenox -) 40 mg SQ DAILY [facility] Last Admin: 08/04/16 09:29 Dose: 40 mg Ferrous Sulfate (Feosol -) 325 mg PO TID [facility] Last Admin: 08/04/16 13:34 Dose: 325 mg Folic Acid (Folic Acid -) 1 mg PO DAILY [facility] Last Admin: 08/04/16 09:29 Dose: 1 mg Guaifenesin (Robitussin -) 10 ml PO Q8H PRN Last Admin: 07/29/16 22:00 Dose: 10 ml Metronidazole (Flagyl 500mg Premixed Ivpb -) 100 mls @ 100 mls/hr IVPB Q8H-IV [facility] Last Admin: 08/04/16 17:05 Dose: 100 mls/hr Ertapenem 1 gm/ Sodium (Chloride) 50 mls @ 100 mls/hr IVPB DAILY [facility] PRN Reason: Protocol Last Admin: 08/04/16 09:27 Dose: 100 mls/hr Sodium Bicarbonate 150 meq/ (Dextrose) 1,150 mls @ 83 mls/hr IV Q13H [facility] Last Admin: 08/04/16 11:50 Dose: 83 mls/hr Insulin Aspart (Novolog Vial Sliding Scale -) 1 vial SQ ACHS [facility] PRN Reason: Protocol Last Admin: 08/04/16 16:42 Dose: Not Given Levothyroxine Sodium (Synthroid -) 25 mcg PO DAILY@0700 [facility] Last Admin: 08/04/16 11:21 Dose: 25 mcg Multivitamins/Minerals/Vitamin C (Tab-A-Vit -) 1 tab PO DAILY [facility] Last Admin: 08/04/16 09:30 Dose: 1 tab Ondansetron HCl (Zofran Injection) 4 mg IVPB Q6H PRN PRN Reason: NAUSEA Potassium Phos/Sodium Phos (Phos-Nak Packet -) 1 packet PO TID [facility] Last Admin: 08/04/16 13:34 Dose: 1 packet Tamsulosin HCl (Flomax -) 0.4 mg PO DAILY@0830 [facility] Last Admin: 08/04/16 08:28 Dose: Not Given Vancomycin HCl (Vancomycin Oral Solution) 125 mg PO Q6HPO [facility] Last Admin: 08/04/16 17:06 Dose: 125 mg Vital Signs Period Temp Pulse Resp BP Sys/Martino Pulse Ox Last 24 Hr 97 F-97.3 F 42-66 15-22 69-89/41-55 94-100 Intake & Output 08/02/16 08/03/16 08/04/16 08/05/16 07:59 07:59 07:59 07:59 Intake Total 2960 2235 5120 1600 Output Total 1100 Balance 2960 2235 5120 500 Weight 158 lb 147 lb 6.4 oz 147 lb 6.4 oz nad no jvd, cachectic rrr s1s2 no mrg bibasilar crackles/rhonchi, nl eff awake, alert, appropriate abd nt nd pos bs no jaundice diaphoresis no le e/c/c mild chest wall tender to palp CBC, BMP 08/04/16 05:38 08/04/16 05:38 Laboratory Tests 08/04/16 05:38 Albumin 1.3 L TSH 6.14 H D Free T4 1.12 ecg 07/26/16: sr 59, nl intervals, no ischemic changes cxr: no chf mibi 10/2011: large inferolateral scar, no ischemia, lvef 35% tele: sb. pvc's. echo 07/2016: tds/limited views: grossly nl lv size/fcn, mild mr a/p: 80 m hx htn, hld, dm, cad/[place] (seen on prior mibi), syst chf, sent from al for infection/sepsis. sepsis: -bp initially improved with ivfs, now worsening of hypotension with sx's of dizziness. receiving IVF bolus -cont abx per ID, mgm't per ICU htn: -septic, bp on low side, holding htn meds. poor po intake, on IVF hld: -stable, not on statin on home med list, outpt f/u cad/mi: -prior mibi showing infarct, no ischemia -no signs acs, trop neg x2 -current cp seems MSK after a recent fall -cont home asa chronic systolic chf: -no signs vol overload -monitor vol status with ivfs, but no signs of volume overload at this time. -echo here showing nl lvef -not on bb due to bradycardia bradycardia: -pt with known sinus tashia evaluated with holter on prior admit that showed no pathologic bradycardia -tele here with sr in 40s at times so have stopped bb, avoid meds that cause bradycardia - avoid qt prolonging drugs when possible. poor prognosis cct 35 min
[2016-08-05] MEDS: VANCOMYCIN 250 MG/5 ML ORAL SOLUTION PO SCH ×4 (00:30→17:07)
[2016-08-05] MEDS: SODIUM BICARBONATE 8.4% - 150 MEQ in DEXTROSE 5%-WATER - 1,000 ML IV SCH ×3 (02:30→13:28)
[2016-08-05] MEDS: METRONIDAZOLE 500 MG PREMIXED 100 ML IVPB SCH ×3 (02:30→17:06)
[2016-08-05 06:03] LABS: BASOPHIL 0.6 % (0-2.0); MCH 33.3 pg (25.7-33.7); MCHC 32.6 g/dl (32.0-35.9); MEAN CELL VOLUME 102.1 fl (80-96); NEUTROPHILS 74.4 % (42.8-82.8); PLATELET COUNT 271 K/MM3 (134-434); RDW 16.2 % (11.9-15.9)
[2016-08-05] MEDS: FERROUS SO4 325 MG TABLET (FP) PO SCH ×3 (06:07→21:31)
[2016-08-05] MEDS: ASCORBIC ACID 500 MG TABLET (FP) PO SCH ×3 (06:07→21:31)
[2016-08-05] MEDS: NAPH,MB-DB/K PH,MBDB POWDER PACKET PO SCH ×3 (06:07→21:31)
[2016-08-05] MEDS: LEVOTHYROXINE NA 25 MCG TABLET (FP) PO SCH (06:07)
[2016-08-05] MEDS: INSULIN SLIDING SCALE (NOVOLOG) 1 VIAL SQ SCH ×4 (06:20→21:31)
[2016-08-05 06:28] LABS: ALBUMIN 1.3 g/dl (3.4-5.0); ANION GAP 5 (8-16); CALCIUM 7.4 mg/dL (8.5-10.1); CO2 21 mmol/L (21-32); GLUCOSE,RANDOM 74 mg/dL (74-106); MAGNESIUM 1.5 mg/dL (1.8-2.4)
[2016-08-05 06:31] LABS: ALK PHOS 74 U/L (45-117); BILIRUBIN,TOTAL 0.2 mg/dL (0.2-1.0); COCKROFT - GAULT 78.2; CREATININE 0.7 mg/dL (0.7-1.3); PHOSPHOROUS 2.3 mg/dL (2.5-4.9); SGOT/AST 18 U/L (15-37); SGPT/ALT 9 U/L (12-78); TOT PROT 4.9 g/dl (6.4-8.2)
[2016-08-05] MEDS ORDERED: PT OWN MED DRAWER 7, Y5N ONE ×2 (08:56→16:49)
[2016-08-05] MEDS: TAMSULOSIN HCL 0.4 MG CAP.ER.24H (FP) PO SCH (08:58)
[2016-08-05] MEDS: ASPIRIN 81 MG CHEWABLE TABLETS PO SCH ×2 (08:59→21:31)
[2016-08-05] MEDS: FOLIC ACID 1 MG TABLET (FP) PO SCH (09:00)
[2016-08-05] MEDS: ENOXAPARIN NA (PORCINE) 40 MG/0.4 ML DISP.SYRIN SQ SCH (09:00)
[2016-08-05] MEDS: CYANOCOBALAMIN 1,000 MCG TABLET (FP) PO SCH (09:00)
[2016-08-05] MEDS: ACETAMINOPHEN 325 MG TABLET (FP) PO PRN (09:00)
[2016-08-05] MEDS: MULTIVITAMINS (DAILY MVI) TABLET (FP) PO SCH (09:01)
[2016-08-05] MEDS: ERTAPENEM SODIUM 1 GM in SODIUM CHLORIDE 50 ML IVPB SCH (10:08)
[2016-08-05] MEDS ORDERED: NAPH,MB-DB/K PH,MBDB POWDER PACKET PO ONE (11:01)
--- NOTE | 2016-08-05 12:08 | PN ---
Teaching Attending Note Name of Resident: Madina Saldana ATTENDING PHYSICIAN STATEMENT I saw and evaluated the patient. I reviewed the resident's note and discussed the case with the resident. I agree with the resident's findings and plan as documented. SUBJECTIVE: Pt seen and examined in the ICU. Blood pressure remains borderline but mentating well today. No fevers recorded. Still with diarrhea. OBJECTIVE: Last Vital Signs Temp Pulse Resp BP Pulse Ox 96.8 F L 47 L 18 76/49 96 08/05/16 10:00 08/05/16 12:00 08/05/16 12:00 08/05/16 12:00 08/05/16 12:02 Intake & Output 08/02/16 08/03/16 08/04/16 08/05/16 23:59 23:59 23:59 23:59 Intake Total 2655 4080 4092 1031 Output Total 1100 Balance 2655 4080 2992 1031 Weight 144 lb 14.4 oz 147 lb 6.4 oz 147 lb 6.4 oz 147 lb 5 oz Gen: more alert, awake Heart: RRR Lung: bilateral rhonchi Abd: soft, nontender Ext: + edema CBC, BMP 08/05/16 05:15 08/05/16 05:15 Active Medications Acetaminophen (Tylenol -) 650 mg PO Q4H PRN PRN Reason: FEVER OR PAIN Last Admin: 08/05/16 09:00 Dose: 650 mg Ascorbic Acid (Vitamin C -) 500 mg PO TID [facility] Last Admin: 08/05/16 06:07 Dose: 500 mg Aspirin (Asa -) 81 mg PO BID [facility] Last Admin: 08/05/16 08:59 Dose: 81 mg Collagenase (Santyl -) 1 applic TP DAILY [facility] Cyanocobalamin (Vitamin B12 -) 1,000 mcg PO DAILY [facility] Last Admin: 08/05/16 09:00 Dose: 1,000 mcg Enoxaparin Sodium (Lovenox -) 40 mg SQ DAILY [facility] Last Admin: 08/05/16 09:00 Dose: 40 mg Ferrous Sulfate (Feosol -) 325 mg PO TID [facility] Last Admin: 08/05/16 06:07 Dose: 325 mg Folic Acid (Folic Acid -) 1 mg PO DAILY [facility] Last Admin: 08/05/16 09:00 Dose: 1 mg Guaifenesin (Robitussin -) 10 ml PO Q8H PRN Last Admin: 07/29/16 22:00 Dose: 10 ml Metronidazole (Flagyl 500mg Premixed Ivpb -) 100 mls @ 100 mls/hr IVPB Q8H-IV [facility] Last Admin: 08/05/16 09:00 Dose: 100 mls/hr Ertapenem 1 gm/ Sodium (Chloride) 50 mls @ 100 mls/hr IVPB DAILY [facility] PRN Reason: Protocol Last Admin: 08/05/16 10:08 Dose: 100 mls/hr Sodium Bicarbonate 150 meq/ (Dextrose) 1,150 mls @ 83 mls/hr IV Q13H [facility] Last Admin: 08/05/16 02:30 Dose: 83 mls/hr Insulin Aspart (Novolog Vial Sliding Scale -) 1 vial SQ ACHS [facility] PRN Reason: Protocol Last Admin: 08/05/16 10:51 Dose: Not Given Levothyroxine Sodium (Synthroid -) 25 mcg PO DAILY@0700 [facility] Last Admin: 08/05/16 06:07 Dose: 25 mcg Multivitamins/Minerals/Vitamin C (Tab-A-Vit -) 1 tab PO DAILY [facility] Last Admin: 08/05/16 09:01 Dose: 1 tab Nystatin (Nystop Powder -) 1 applic TP DAILY [facility] Ondansetron HCl (Zofran Injection) 4 mg IVPB Q6H PRN PRN Reason: NAUSEA Potassium Phos/Sodium Phos (Phos-Nak Packet -) 1 packet PO TID [facility] Last Admin: 08/05/16 06:07 Dose: 1 packet Tamsulosin HCl (Flomax -) 0.4 mg PO DAILY@0830 [facility] Last Admin: 08/05/16 08:58 Dose: 0.4 mg Vancomycin HCl (Vancomycin Oral Solution) 125 mg PO Q6HPO [facility] Last Admin: 08/05/16 11:41 Dose: 125 mg ASSESSMENT AND PLAN: UTI C Diff Colitis Pneumonia vs Atelectasis Septic Shock CAD LV Systolic Dysfunction HTN Hypothyroidism - continue antibiotics per ID - discussed with renal, will hold IVF today as pt becoming fluid overloaded - monitor urine output, creatinine - replete lytes - increase free water - continue synthroid - aspiration precautions - attempt incentive spirometry - DVT prophylaxis - continue ICU monitoring
--- NOTE | 2016-08-05 12:09 | PN ---
Progress Note (short form) - Note Progress Note: Awake, interactive in conversation. Poor PO intake. Continues to be hypotensive/hypothermic. Denies chest pain, shortness of breath, palpitation or dizziness. O/E Vital Signs Period Temp Pulse Resp BP Sys/Martino Pulse Ox Last 24 Hr 96.8 F-97.4 F 42-58 10-20 76-111/49-85 96-98 Heartt regular Lungs clear' Abd soft Ext no edema Not cold Current Medications Generic Name Dose Route Start Last Admin Trade Name Freq PRN Reason Stop Dose Admin Acetaminophen 650 mg 07/27/16 19:04 08/05/16 09:00 Tylenol - PO 650 mg Q4H PRN Administration FEVER OR PAIN Ascorbic Acid 500 mg 07/27/16 22:00 08/05/16 06:07 Vitamin C - PO 500 mg TID [facility] Administration Aspirin 81 mg 07/27/16 22:00 08/05/16 08:59 Asa - PO 81 mg BID [facility] Administration Collagenase 1 applic 08/05/16 12:30 Santyl - TP DAILY [facility] Cyanocobalamin 1,000 mcg 07/28/16 10:00 08/05/16 09:00 Vitamin B12 - PO 1,000 mcg DAILY [facility] Administration Enoxaparin Sodium 40 mg 07/28/16 10:00 08/05/16 09:00 Lovenox - SQ 40 mg DAILY [facility] Administration Ferrous Sulfate 325 mg 07/27/16 22:00 08/05/16 06:07 Feosol - PO 325 mg TID [facility] Administration Folic Acid 1 mg 07/28/16 10:00 08/05/16 09:00 Folic Acid - PO 1 mg DAILY [facility] Administration Guaifenesin 10 ml 07/29/16 21:53 07/29/16 22:00 Robitussin - PO 10 ml Q8H PRN Administration Metronidazole 100 mls @ 100 mls/hr 08/02/16 18:00 08/05/16 09:00 Flagyl 500mg Premixed Ivpb - IVPB 100 mls/hr Q8H-IV [facility] Administration Ertapenem 1 gm/ Sodium 50 mls @ 100 mls/hr 08/03/16 10:00 08/05/16 10:08 Chloride IVPB 100 mls/hr DAILY [facility] Administration Protocol Sodium Bicarbonate 150 meq/ 1,150 mls @ 83 mls/hr 08/04/16 11:30 08/05/16 02:30 Dextrose IV 83 mls/hr Q13H [facility] Administration Insulin Aspart 1 vial 07/27/16 22:00 08/05/16 10:51 Novolog Vial Sliding Scale - SQ Not Given ACHS [facility] Protocol Levothyroxine Sodium 25 mcg 08/04/16 11:15 08/05/16 06:07 Synthroid - PO 25 mcg DAILY@0700 [facility] Administration Multivitamins/Minerals/Vitamin C 1 tab 07/28/16 10:00 08/05/16 09:01 Tab-A-Vit - PO 1 tab DAILY [facility] Administration Nystatin 1 applic 08/05/16 12:30 Nystop Powder - TP DAILY [facility] Ondansetron HCl 4 mg 07/27/16 19:04 Zofran Injection IVPB Q6H PRN NAUSEA Potassium Phos/Sodium Phos 1 packet 07/27/16 22:00 08/05/16 06:07 Phos-Nak Packet - PO 1 packet TID [facility] Administration Tamsulosin HCl 0.4 mg 07/28/16 08:30 08/05/16 08:58 Flomax - PO 0.4 mg DAILY@0830 [facility] Administration Vancomycin HCl 125 mg 08/02/16 18:00 08/05/16 11:41 Vancomycin Oral Solution PO 125 mg Q6HPO [facility] Administration CBC, BMP 08/05/16 05:15 08/05/16 05:15 Microbiology 08/02/16 07:15 Blood - Peripheral Venous Blood Culture - Preliminary NO GROWTH OBTAINED AFTER 24 HOURS, INCUBATION TO CONTINUE FOR 4 DAYS. 08/02/16 06:55 Blood - Peripheral Venous Blood Culture - Preliminary NO GROWTH OBTAINED AFTER 24 HOURS, INCUBATION TO CONTINUE FOR 4 DAYS. A&P (1) UTI (urinary tract infection) Assessment/Plan: Continue IV abx ID follow up appreciated. Code(s): N39.0 - URINARY TRACT INFECTION, SITE NOT SPECIFIED (2) C diff colitis Assessment/Plan: -Continue oral vancomycin and IV flagyl Code(s): R19.7 - DIARRHEA, UNSPECIFIED Qualifiers: Diarrhea type: unspecified type Qualified Code(s): R19.7 - Diarrhea, unspecified (3) Hypothermia Sepsis protocol. (4) Anemia Assessment/Plan: -chronic and stable Code(s): D64.9 - ANEMIA, UNSPECIFIED Qualifiers: Anemia type: other cause Other causes of anemia: other cause, not classified Qualified Code(s): D64.89 - Other specified anemias (5) Chronic systolic CHF (congestive heart failure) Assessment/Plan: -not in exacerbation -continue hydration for sepsis Code(s): I50.22 - CHRONIC SYSTOLIC (CONGESTIVE) HEART FAILURE (6) CAD (coronary artery disease) -continue home regimen -cardiology following Code(s): I25.10 - ATHSCL HEART DISEASE OF [place] CORONARY ARTERY W/O ANG PCTRS (7) HTN (hypertension) Assessment/Plan: Code(s): I10 - ESSENTIAL (PRIMARY) HYPERTENSION Now hypotensive. BP meds on hold. (8) Hypernatremia Assessment/Plan: -Continue D5 1/NS - Renal follow up appreciated. Code(s): E87.0 - HYPEROSMOLALITY AND HYPERNATREMIA 9) Bradycardia Cardiology follow up appreciated. 10) Hypothyroidism TSH high. Started on levothyroxine 25 mcg daily.
--- NOTE | 2016-08-05 12:14 | PN ---
Progress Note (short form) - Note Progress Note: Renal follow up for Metabolic acidosis and Hypernatremia Pt seen and examined in the ICU awake and alert continues to have diarrhea no pressers, on Bicarb gtt Vital Signs Temperature 96.8 F L 08/05/16 10:00 Pulse Rate 47 L 08/05/16 12:00 Respiratory Rate 18 08/05/16 12:00 Blood Pressure 76/49 08/05/16 12:00 O2 Sat by Pulse Oximetry (%) 96 08/05/16 12:02 Intake & Output 08/02/16 08/03/16 08/04/16 08/05/16 23:59 23:59 23:59 23:59 Intake Total 2655 4080 4092 1031 Output Total 1100 Balance 2655 4080 2992 1031 Weight 144 lb 14.4 oz 147 lb 6.4 oz 147 lb 6.4 oz 147 lb 5 oz Gen: NAD CVS: RRR, No M/R Lungs :Dec Bs at lung bases but no rales, wheeze Abd: soft NT/ND Ext: UE edema Neuro: Awake and alert CBC, BMP 08/05/16 05:15 08/05/16 05:15 Laboratory Tests 08/04/16 08/04/16 08/05/16 11:30 11:30 05:15 MCV 102.1 H Calcium Phosphorus Magnesium Albumin Urine pH 5.0 Ur Random Sodium 153 Ur Random Potassium 27.0 Ur Random Chloride 211 08/05/16 05:15 MCV Calcium 7.4 L Phosphorus 2.3 L Magnesium 1.5 L D Albumin 1.3 L Urine pH Ur Random Sodium Ur Random Potassium Ur Random Chloride Current Medications Acetaminophen (Tylenol -) 650 mg PO Q4H PRN PRN Reason: FEVER OR PAIN Last Admin: 08/05/16 09:00 Dose: 650 mg Ascorbic Acid (Vitamin C -) 500 mg PO TID [facility] Last Admin: 08/05/16 06:07 Dose: 500 mg Aspirin (Asa -) 81 mg PO BID [facility] Last Admin: 08/05/16 08:59 Dose: 81 mg Collagenase (Santyl -) 1 applic TP DAILY [facility] Cyanocobalamin (Vitamin B12 -) 1,000 mcg PO DAILY [facility] Last Admin: 08/05/16 09:00 Dose: 1,000 mcg Enoxaparin Sodium (Lovenox -) 40 mg SQ DAILY [facility] Last Admin: 08/05/16 09:00 Dose: 40 mg Ferrous Sulfate (Feosol -) 325 mg PO TID [facility] Last Admin: 08/05/16 06:07 Dose: 325 mg Folic Acid (Folic Acid -) 1 mg PO DAILY [facility] Last Admin: 08/05/16 09:00 Dose: 1 mg Guaifenesin (Robitussin -) 10 ml PO Q8H PRN Last Admin: 07/29/16 22:00 Dose: 10 ml Metronidazole (Flagyl 500mg Premixed Ivpb -) 100 mls @ 100 mls/hr IVPB Q8H-IV [facility] Last Admin: 08/05/16 09:00 Dose: 100 mls/hr Ertapenem 1 gm/ Sodium (Chloride) 50 mls @ 100 mls/hr IVPB DAILY [facility] PRN Reason: Protocol Last Admin: 08/05/16 10:08 Dose: 100 mls/hr Sodium Bicarbonate 150 meq/ (Dextrose) 1,150 mls @ 83 mls/hr IV Q13H [facility] Last Admin: 08/05/16 02:30 Dose: 83 mls/hr Insulin Aspart (Novolog Vial Sliding Scale -) 1 vial SQ ACHS [facility] PRN Reason: Protocol Last Admin: 08/05/16 10:51 Dose: Not Given Levothyroxine Sodium (Synthroid -) 25 mcg PO DAILY@0700 [facility] Last Admin: 08/05/16 06:07 Dose: 25 mcg Multivitamins/Minerals/Vitamin C (Tab-A-Vit -) 1 tab PO DAILY [facility] Last Admin: 08/05/16 09:01 Dose: 1 tab Nystatin (Nystop Powder -) 1 applic TP DAILY [facility] Ondansetron HCl (Zofran Injection) 4 mg IVPB Q6H PRN PRN Reason: NAUSEA Potassium Phos/Sodium Phos (Phos-Nak Packet -) 1 packet PO TID [facility] Last Admin: 08/05/16 06:07 Dose: 1 packet Tamsulosin HCl (Flomax -) 0.4 mg PO DAILY@0830 [facility] Last Admin: 08/05/16 08:58 Dose: 0.4 mg Vancomycin HCl (Vancomycin Oral Solution) 125 mg PO Q6HPO [facility] Last Admin: 08/05/16 11:41 Dose: 125 mg A/P 80 year old Gentleman with PMhx of AAA, Hypertension, GERD, DM Type 2, Anemia, C. Diff colitis, Hyperlipidemia, CAD with Hx of [place] presented with hypothermia and found to have Sepsis related to UTI and C. Diff Colitis with diarrhea with metabolic acidosis and hypernatremia. #Combined Anion gap and non-anion gap metabolic acidosis with resp compensation Urine anion gap is negative indicating diarrhea is etiology of acidosis serum bicarb increased to 21 continue D5W with bicarb at 42cc per hour (lower rate over concerns of volume overload) #Hypernatremia serum Na is stable Trend oral water intake as tolerated #Sepsis/Hypothermia/Cdiff continue Abx as per ICU/ID supportive Care #Hypophosphatemia Continue Neutraphos K phos IV if no improvement with oral phos repletion #Hypomagnesemia give IV mag sulfate 4g #Anemia Transfuse as per ICU protocol Medardo Huerta DO
[2016-08-05] MEDS: NYSTATIN POWDER 100,000 UNITS/GM - 15 GM TOPICAL POWDER TP SCH (13:23)
[2016-08-05] MEDS: COLLAGENASE CLOSTRIDIUM HIST. 30 GRAMS TUBE TP SCH (13:24)
--- NOTE | 2016-08-05 15:56 | PN ---
Physical Exam: SUBJECTIVE: Patient seen and examined. He doesn't have any complaints today, just ' a little bit of diarrhea". He denies fever, chills, weakness, dizziness, headache, chest pain, SOB. OBJECTIVE: Vital Signs Period Temp Pulse Resp BP Sys/Martino Pulse Ox Last 24 Hr 96.8 F-97.4 F 46-58 10-20 76-111/42-85 96-98 GENERAL: The patient is awake, alert, and fully oriented, in no acute distress. HEAD: Normal with no signs of trauma. EYES: extraocular movements intact, sclera anicteric, conjunctiva clear. ENT: oropharynx clear without exudates, moist mucous membranes. NECK: Trachea midline, supple. LUNGS: Breath sounds equal, diminished breath sounds bilaterally, no wheezes, no crackles, no accessory muscle use. HEART: Regular rate and rhythm, S1, S2 without murmur, rub or gallop. ABDOMEN: Soft, nontender, nondistended, normoactive bowel sounds, no guarding, no rebound, no hepatosplenomegaly, no masses. EXTREMITIES: warm, 1+ edema in hands and feet b/l, amputated left toe, no erythema. NEUROLOGICAL: Normal speech, gait not observed. PSYCH: Normal mood, normal affect. SKIN: Warm, dry, normal turgor, venous stasis changes in lower extremities B/L. Laboratory Results - last 24 hr 08/04/16 08/04/16 08/04/16 10:57 16:39 21:13 WBC RBC Hgb Hct MCV MCHC RDW Plt Count MPV Neutrophils % Lymphocytes % Monocytes % Eosinophils % Basophils % Sodium Potassium Chloride Carbon Dioxide Anion Gap BUN Creatinine Creat Clearance w eGFR POC Glucometer 120.42524 123.11825 Random Glucose Lactic Acid Calcium Phosphorus Magnesium Total Bilirubin AST ALT Alkaline Phosphatase Total Protein Albumin Free T3 1.2 L 08/05/16 08/05/16 08/05/16 05:15 05:15 05:15 WBC 9.0 RBC 2.57 L Hgb 8.6 L Hct 26.2 L MCV 102.1 H MCHC 32.6 RDW 16.2 H Plt Count 271 MPV 9.0 Neutrophils % 74.4 Lymphocytes % 19.0 D Monocytes % 5.0 Eosinophils % 1.0 Basophils % 0.6 Sodium 148 H Potassium 3.6 Chloride 122 H Carbon Dioxide 21 D Anion Gap 5 L BUN 8 Creatinine 0.7 Creat Clearance w eGFR > 60 POC Glucometer Random Glucose 74 D Lactic Acid 1.3 Calcium 7.4 L Phosphorus 2.3 L Magnesium 1.5 L D Total Bilirubin 0.2 D AST 18 D ALT 9 L Alkaline Phosphatase 74 Total Protein 4.9 L Albumin 1.3 L Free T3 08/05/16 08/05/16 06:19 10:48 WBC RBC Hgb Hct MCV MCHC RDW Plt Count MPV Neutrophils % Lymphocytes % Monocytes % Eosinophils % Basophils % Sodium Potassium Chloride Carbon Dioxide Anion Gap BUN Creatinine Creat Clearance w eGFR POC Glucometer 115.91752 135.08727 Random Glucose Lactic Acid Calcium Phosphorus Magnesium Total Bilirubin AST ALT Alkaline Phosphatase Total Protein Albumin Free T3 Active Medications Generic Name Dose Route Start Last Admin Trade Name Freq PRN Reason Stop Dose Admin Acetaminophen 650 mg 07/27/16 19:04 08/05/16 09:00 Tylenol - PO 650 mg Q4H PRN Administration FEVER OR PAIN Ascorbic Acid 500 mg 07/27/16 22:00 08/05/16 13:29 Vitamin C - PO 500 mg TID [facility] Administration Aspirin 81 mg 07/27/16 22:00 08/05/16 08:59 Asa - PO 81 mg BID [facility] Administration Collagenase 1 applic 08/05/16 12:30 08/05/16 13:24 Santyl - TP 1 applic DAILY [facility] Administration Cyanocobalamin 1,000 mcg 07/28/16 10:00 08/05/16 09:00 Vitamin B12 - PO 1,000 mcg DAILY [facility] Administration Enoxaparin Sodium 40 mg 07/28/16 10:00 08/05/16 09:00 Lovenox - SQ 40 mg DAILY [facility] Administration Ferrous Sulfate 325 mg 07/27/16 22:00 08/05/16 13:29 Feosol - PO 325 mg TID [facility] Administration Folic Acid 1 mg 07/28/16 10:00 08/05/16 09:00 Folic Acid - PO 1 mg DAILY [facility] Administration Guaifenesin 10 ml 07/29/16 21:53 07/29/16 22:00 Robitussin - PO 10 ml Q8H PRN Administration Metronidazole 100 mls @ 100 mls/hr 08/02/16 18:00 08/05/16 09:00 Flagyl 500mg Premixed Ivpb - IVPB 100 mls/hr Q8H-IV [facility] Administration Ertapenem 1 gm/ Sodium 50 mls @ 100 mls/hr 08/03/16 10:00 08/05/16 10:08 Chloride IVPB 100 mls/hr DAILY [facility] Administration Protocol Sodium Bicarbonate 150 meq/ 1,150 mls @ 42 mls/hr 08/05/16 13:03 08/05/16 13:28 Dextrose IV Not Given Q24H [facility] Insulin Aspart 1 vial 07/27/16 22:00 08/05/16 10:51 Novolog Vial Sliding Scale - SQ Not Given ACHS [facility] Protocol Levothyroxine Sodium 25 mcg 08/04/16 11:15 08/05/16 06:07 Synthroid - PO 25 mcg DAILY@0700 [facility] Administration Multivitamins/Minerals/Vitamin C 1 tab 07/28/16 10:00 08/05/16 09:01 Tab-A-Vit - PO 1 tab DAILY [facility] Administration Nystatin 1 applic 08/05/16 12:30 08/05/16 13:23 Nystop Powder - TP 1 applic DAILY [facility] Administration Ondansetron HCl 4 mg 07/27/16 19:04 Zofran Injection IVPB Q6H PRN NAUSEA Potassium Phos/Sodium Phos 1 packet 07/27/16 22:00 08/05/16 13:29 Phos-Nak Packet - PO 1 packet TID [facility] Administration Tamsulosin HCl 0.4 mg 07/28/16 08:30 08/05/16 08:58 Flomax - PO 0.4 mg DAILY@0830 [facility] Administration Vancomycin HCl 125 mg 08/02/16 18:00 08/05/16 11:41 Vancomycin Oral Solution PO 125 mg Q6HPO [facility] Administration Microbiology 08/05/16 13:00 Urine For Antigen Detection Legionella Antigen - Final 08/05/16 13:00 Urine For Antigen Detection Streptococcus pneumoniae Antigen (M - Final 08/02/16 07:15 Blood - Peripheral Venous Blood Culture - Preliminary NO GROWTH OBTAINED AFTER 72 HOURS, INCUBATION TO CONTINUE FOR 2 DAYS. 08/02/16 06:55 Blood - Peripheral Venous Blood Culture - Preliminary NO GROWTH OBTAINED AFTER 72 HOURS, INCUBATION TO CONTINUE FOR 2 DAYS. 07/27/16 10:35 Blood - Peripheral Venous Blood Culture - Final NO GROWTH AFTER 5 DAYS INCUBATION 07/27/16 10:25 Blood - Peripheral Venous Blood Culture - Final NO GROWTH AFTER 5 DAYS INCUBATION 07/27/16 02:45 Urine - Urine - Catheterized Urine Culture - Final Escherichia Coli Esbl Tax Analyst Enterococcus Faecium 07/27/16 17:15 Stool Clostridium difficile Antigen (VICTOR M) - Final 07/27/16 17:15 Stool Clostridium difficile Toxin Assay - Final CXR 08/05/16: pleural effusion on right and left side. ASSESSMENT/PLAN: 80 year old male with a PMH of AAA, HTN, DM type 2, hypothyroidism, anemia, h/o of C.Diff in March 2016, CAD who was brought to the hospital from [facility] for hypothermia. He originally was admitted to the floor but was found to be hypothermic and transferred to the ICU. Hypothermia: -the pt had temp 93 recorded -no mote hypothermia Septic shock due to UTI: -hypothermia, hypotension, and leukocytosis -cont bicarbonate at rate 42 ml/hr -continue antibiotics Flagyl and Ertapenem -repeated UA shows 3+ Leuk Est. -follow up urine cultures Combined Anion gap and non-anion gap metabolic acidosis with resp compensation -etology not known -D/c 1/2 NS at start D5w with 75 meq of NaHCO3 at 42cc per hour -trend serum Bicarb -if CO2 less then 15 repeat abg Hypernatremia: -continue bicarbonate -monitor possible HCAP -patient with chest pain and productive cough -CXR worse today -ID consulted -f/u antibiotics Diarrhea -secondary to c. diff -continue flagyl Chest pain -no ACS -f/u cardiology recommendation Hypokalemia: -repleated, will add additional dose of k-phos -will monitor Hypomagnesemia: -repleated Anemia -chronic -continue iron -monitor tomorrow Chronic systolic CHF (congestive heart failure) -not in exacerbation -f/u cardiology recommendation HTN -currently hypotensive -holding toprol xl Disposition: monitor in ICU Problem List - Problems (1) Anemia Code(s): D64.9 - ANEMIA, UNSPECIFIED Qualifiers: Anemia type: other cause Other causes of anemia: other cause, not classified Qualified Code(s): D64.89 - Other specified anemias (2) Chest pain Code(s): R07.9 - CHEST PAIN, UNSPECIFIED (3) Chronic systolic CHF (congestive heart failure) Code(s): I50.22 - CHRONIC SYSTOLIC (CONGESTIVE) HEART FAILURE (4) HCAP (healthcare-associated pneumonia) Code(s): J18.9 - PNEUMONIA, UNSPECIFIED ORGANISM (5) Hypernatremia Code(s): E87.0 - HYPEROSMOLALITY AND HYPERNATREMIA (6) Hypoxia Code(s): R09.02 - HYPOXEMIA (7) Pneumonia Code(s): J18.9 - PNEUMONIA, UNSPECIFIED ORGANISM Qualifiers: Pneumonia type: due to unspecified organism Laterality: right Lung location: lower lobe of lung Qualified Code(s): J18.1 - Lobar pneumonia, unspecified organism (8) Septic shock Code(s): A41.9 - SEPSIS, UNSPECIFIED ORGANISM R65.21 - SEVERE SEPSIS WITH SEPTIC SHOCK (9) UTI (urinary tract infection) Code(s): N39.0 - URINARY TRACT INFECTION, SITE NOT SPECIFIED (10) Bradycardia Code(s): R00.1 - BRADYCARDIA, UNSPECIFIED (11) CAD (coronary artery disease) Code(s): I25.10 - ATHSCL HEART DISEASE OF [place] CORONARY ARTERY W/O ANG PCTRS (12) Dehydration Code(s): E86.0 - DEHYDRATION (13) Diabetes mellitus type 2 in nonobese Code(s): E11.9 - TYPE 2 DIABETES MELLITUS WITHOUT COMPLICATIONS (14) Diarrhea Code(s): R19.7 - DIARRHEA, UNSPECIFIED Qualifiers: Diarrhea type: infectious Qualified Code(s): A09 - Infectious gastroenteritis and colitis, unspecified (15) HLD (hyperlipidemia) Code(s): E78.5 - HYPERLIPIDEMIA, UNSPECIFIED (16) HTN (hypertension) Code(s): I10 - ESSENTIAL (PRIMARY) HYPERTENSION Visit type - Emergency Visit Emergency Visit: Yes ED Registration Date: 07/26/16 Care time: The patient presented to the Emergency Department on the above date and was hospitalized for further evaluation of their emergent condition. - New Patient This patient is new to me today: No - Critical Care Critical Care patient: Yes Total Critical Care Time (in minutes): 45 Critical Care Statement: The care of this patient involved high complexity decision making to prevent further life threatening deterioration of the patient 's condition and/or to evalute & treat vital organ system(s) failure or risk of failure.
--- NOTE | 2016-08-05 16:29 | PN ---
Progress Note, Physician History of Present Illness: doing much better mentally much more alert and awake normal body temp still with tashia - Current Medication List Current Medications: Active Medications Acetaminophen (Tylenol -) 650 mg PO Q4H PRN PRN Reason: FEVER OR PAIN Last Admin: 08/05/16 09:00 Dose: 650 mg Ascorbic Acid (Vitamin C -) 500 mg PO TID [facility] Last Admin: 08/05/16 13:29 Dose: 500 mg Aspirin (Asa -) 81 mg PO BID [facility] Last Admin: 08/05/16 08:59 Dose: 81 mg Collagenase (Santyl -) 1 applic TP DAILY [facility] Last Admin: 08/05/16 13:24 Dose: 1 applic Cyanocobalamin (Vitamin B12 -) 1,000 mcg PO DAILY [facility] Last Admin: 08/05/16 09:00 Dose: 1,000 mcg Enoxaparin Sodium (Lovenox -) 40 mg SQ DAILY [facility] Last Admin: 08/05/16 09:00 Dose: 40 mg Ferrous Sulfate (Feosol -) 325 mg PO TID [facility] Last Admin: 08/05/16 13:29 Dose: 325 mg Folic Acid (Folic Acid -) 1 mg PO DAILY [facility] Last Admin: 08/05/16 09:00 Dose: 1 mg Guaifenesin (Robitussin -) 10 ml PO Q8H PRN Last Admin: 07/29/16 22:00 Dose: 10 ml Metronidazole (Flagyl 500mg Premixed Ivpb -) 100 mls @ 100 mls/hr IVPB Q8H-IV [facility] Last Admin: 08/05/16 09:00 Dose: 100 mls/hr Ertapenem 1 gm/ Sodium (Chloride) 50 mls @ 100 mls/hr IVPB DAILY [facility] PRN Reason: Protocol Last Admin: 08/05/16 10:08 Dose: 100 mls/hr Sodium Bicarbonate 150 meq/ (Dextrose) 1,150 mls @ 42 mls/hr IV Q24H [facility] Last Admin: 08/05/16 13:28 Dose: Not Given Insulin Aspart (Novolog Vial Sliding Scale -) 1 vial SQ ACHS [facility] PRN Reason: Protocol Last Admin: 08/05/16 10:51 Dose: Not Given Levothyroxine Sodium (Synthroid -) 25 mcg PO DAILY@0700 [facility] Last Admin: 08/05/16 06:07 Dose: 25 mcg Multivitamins/Minerals/Vitamin C (Tab-A-Vit -) 1 tab PO DAILY [facility] Last Admin: 08/05/16 09:01 Dose: 1 tab Nystatin (Nystop Powder -) 1 applic TP DAILY [facility] Last Admin: 08/05/16 13:23 Dose: 1 applic Ondansetron HCl (Zofran Injection) 4 mg IVPB Q6H PRN PRN Reason: NAUSEA Potassium Phos/Sodium Phos (Phos-Nak Packet -) 1 packet PO TID [facility] Last Admin: 08/05/16 13:29 Dose: 1 packet Tamsulosin HCl (Flomax -) 0.4 mg PO DAILY@0830 [facility] Last Admin: 08/05/16 08:58 Dose: 0.4 mg Vancomycin HCl (Vancomycin Oral Solution) 125 mg PO Q6HPO [facility] Last Admin: 08/05/16 11:41 Dose: 125 mg - Objective Vital Signs: Vital Signs Temperature 96.8 F L 08/05/16 10:00 Pulse Rate 46 L 08/05/16 14:00 Respiratory Rate 18 08/05/16 14:00 Blood Pressure 77/42 08/05/16 14:00 O2 Sat by Pulse Oximetry (%) 96 08/05/16 12:02 Constitutional: Yes: No Distress, Calm Cardiovascular: Yes: Regular Rate and Rhythm, Bradycardia Respiratory: Yes: Regular, CTA Bilaterally Gastrointestinal: Yes: Normal Bowel Sounds, Soft Musculoskeletal: Yes: WNL Extremities: Yes: WNL Neurological: Yes: Alert, Oriented Psychiatric: Yes: Alert Labs: CBC, BMP 08/05/16 05:15 08/05/16 05:15 INR, PTT INR 1.17 (0.82-1.09) H 07/26/16 19:07 - ....Imaging Chest X-ray: Report Reviewed, Image Reviewed Assessment/Plan Problem List - Problems (1) Septic shock Code(s): A41.9 - SEPSIS, UNSPECIFIED ORGANISM R65.21 - SEVERE SEPSIS WITH SEPTIC SHOCK (2) HCAP (healthcare-associated pneumonia) Code(s): J18.9 - PNEUMONIA, UNSPECIFIED ORGANISM (3) UTI (urinary tract infection) Code(s): N39.0 - URINARY TRACT INFECTION, SITE NOT SPECIFIED (4) Diarrhea Code(s): R19.7 - DIARRHEA, UNSPECIFIED Qualifiers: Diarrhea type: unspecified type Qualified Code(s): R19.7 - Diarrhea, unspecified (5) Chest pain Code(s): R07.9 - CHEST PAIN, UNSPECIFIED (6) Anemia Code(s): D64.9 - ANEMIA, UNSPECIFIED Qualifiers: Anemia type: other cause Other causes of anemia: other cause, not classified Qualified Code(s): D64.89 - Other specified anemias (7) Chronic systolic CHF (congestive heart failure) Code(s): I50.22 - CHRONIC SYSTOLIC (CONGESTIVE) HEART FAILURE (8) CAD (coronary artery disease) Code(s): I25.10 - ATHSCL HEART DISEASE OF [place] CORONARY ARTERY W/O ANG PCTRS (9) Dehydration Code(s): E86.0 - DEHYDRATION (10) HTN (hypertension) Code(s): I10 - ESSENTIAL (PRIMARY) HYPERTENSION (11) Hypernatremia Code(s): E87.0 - HYPEROSMOLALITY AND HYPERNATREMIA 12 hypothermia 13 cdiff plan conitnue current mgmt cx results noted all negative so far await for urine cx report no other plan at the moment watch how dirrhoea rest as per icu cardio0 note noted cc time 40 min
--- NOTE | 2016-08-05 23:57 | PN ---
Progress Note (short form) - Note Progress Note: cc: sob s: denies cp, sob, palps, dizziness. Remains hypotensive. Appears stronger then yesterday, less dizziness. Current Medications Acetaminophen (Tylenol -) 650 mg PO Q4H PRN PRN Reason: FEVER OR PAIN Last Admin: 08/05/16 09:00 Dose: 650 mg Ascorbic Acid (Vitamin C -) 500 mg PO TID [facility] Last Admin: 08/05/16 21:31 Dose: 500 mg Aspirin (Asa -) 81 mg PO BID [facility] Last Admin: 08/05/16 21:31 Dose: 81 mg Collagenase (Santyl -) 1 applic TP DAILY [facility] Last Admin: 08/05/16 13:24 Dose: 1 applic Cyanocobalamin (Vitamin B12 -) 1,000 mcg PO DAILY [facility] Last Admin: 08/05/16 09:00 Dose: 1,000 mcg Enoxaparin Sodium (Lovenox -) 40 mg SQ DAILY [facility] Last Admin: 08/05/16 09:00 Dose: 40 mg Ferrous Sulfate (Feosol -) 325 mg PO TID [facility] Last Admin: 08/05/16 21:31 Dose: 325 mg Folic Acid (Folic Acid -) 1 mg PO DAILY [facility] Last Admin: 08/05/16 09:00 Dose: 1 mg Guaifenesin (Robitussin -) 10 ml PO Q8H PRN Last Admin: 07/29/16 22:00 Dose: 10 ml Metronidazole (Flagyl 500mg Premixed Ivpb -) 100 mls @ 100 mls/hr IVPB Q8H-IV [facility] Last Admin: 08/05/16 17:06 Dose: 100 mls/hr Ertapenem 1 gm/ Sodium (Chloride) 50 mls @ 100 mls/hr IVPB DAILY [facility] PRN Reason: Protocol Last Admin: 08/05/16 10:08 Dose: 100 mls/hr Sodium Bicarbonate 150 meq/ (Dextrose) 1,150 mls @ 42 mls/hr IV Q24H [facility] Last Admin: 08/05/16 13:28 Dose: Not Given Insulin Aspart (Novolog Vial Sliding Scale -) 1 vial SQ ACHS [facility] PRN Reason: Protocol Last Admin: 08/05/16 21:31 Dose: Not Given Levothyroxine Sodium (Synthroid -) 25 mcg PO DAILY@0700 [facility] Last Admin: 08/05/16 06:07 Dose: 25 mcg Multivitamins/Minerals/Vitamin C (Tab-A-Vit -) 1 tab PO DAILY [facility] Last Admin: 08/05/16 09:01 Dose: 1 tab Nystatin (Nystop Powder -) 1 applic TP DAILY [facility] Last Admin: 08/05/16 13:23 Dose: 1 applic Ondansetron HCl (Zofran Injection) 4 mg IVPB Q6H PRN PRN Reason: NAUSEA Potassium Phos/Sodium Phos (Phos-Nak Packet -) 1 packet PO TID [facility] Last Admin: 08/05/16 21:31 Dose: 1 packet Tamsulosin HCl (Flomax -) 0.4 mg PO DAILY@0830 [facility] Last Admin: 08/05/16 08:58 Dose: 0.4 mg Vancomycin HCl (Vancomycin Oral Solution) 125 mg PO Q6HPO [facility] Last Admin: 08/05/16 17:07 Dose: 125 mg Vital Signs Period Temp Pulse Resp BP Sys/Martino Pulse Ox Last 24 Hr 96.8 F-97 F 46-58 10-19 76-100/42-65 96-96 Intake & Output 08/03/16 08/04/16 08/05/16 08/06/16 07:59 07:59 07:59 07:59 Intake Total 2235 5120 2963 1208 Output Total 1100 503 Balance 2235 5120 1863 705 Weight 147 lb 6.4 oz 147 lb 6.4 oz 147 lb 5 oz nad no jvd, cachectic rrr s1s2 no mrg bibasilar crackles/rhonchi, nl eff awake, alert, appropriate abd nt nd pos bs no jaundice diaphoresis no le e/c/c mild chest wall tender to palp CBC, BMP 08/05/16 05:15 08/05/16 05:15 ecg 07/26/16: sr 59, nl intervals, no ischemic changes cxr: no chf mibi 10/2011: large inferolateral scar, no ischemia, lvef 35% tele: sb. pvc's. one episode of slow VT echo 07/2016: tds/limited views: grossly nl lv size/fcn, mild mr a/p: 80 m hx htn, hld, dm, cad/CT (seen on prior mibi), syst chf, sent from [place] for infection/sepsis. sepsis: -bp initially improved with ivfs, recently worsening hypotension with sx's of dizziness. Now improving with IVF. Aggressive IVF as needed. -cont abx per ID, mgm't per ICU htn: -septic, bp on low side, holding htn meds. poor po intake, on IVF hld: -stable, not on statin on home med list, outpt f/u cad/mi: -prior mibi showing infarct, no ischemia -no signs acs, trop neg x2 - cp here seems MSK after a recent fall -cont home asa chronic systolic chf: -no signs vol overload -monitor vol status with ivfs, but no signs of volume overload at this time. Edema restricted to the arm ? thrombophlebitis. -echo here showing nl lvef -not on bb due to bradycardia bradycardia: -pt with known sinus tashia evaluated with holter on prior admit that showed no pathologic bradycardia -tele here with sr in 40s at times so have stopped bb, avoid meds that cause bradycardia - avoid qt prolonging drugs when possible. - potassium repletion cct 35 min
[2016-08-06] MEDS: VANCOMYCIN 250 MG/5 ML ORAL SOLUTION PO SCH ×4 (00:17→17:52)
[2016-08-06] MEDS: METRONIDAZOLE 500 MG PREMIXED 100 ML IVPB SCH ×3 (01:02→17:52)
[2016-08-06 06:26] LABS: EOSINOPHIL 0.6 % (0-4.5); MCH 33.6 pg (25.7-33.7); MCHC 32.7 g/dl (32.0-35.9); MEAN CELL VOLUME 102.5 fl (80-96); MEAN PLT VOLUME 9.2 fl (7.5-11.1); NEUTROPHILS 81.2 % (42.8-82.8); PLATELET COUNT 251 K/MM3 (134-434); RDW 16.4 % (11.9-15.9); WHITE BLOOD COUNT 11.6 K/mm3 (4.0-10.0)
[2016-08-06] MEDS: ASCORBIC ACID 500 MG TABLET (FP) PO SCH ×3 (06:51→21:22)
[2016-08-06] MEDS: LEVOTHYROXINE NA 25 MCG TABLET (FP) PO SCH (06:51)
[2016-08-06] MEDS: INSULIN SLIDING SCALE (NOVOLOG) 1 VIAL SQ SCH ×4 (06:52→22:00)
[2016-08-06] MEDS: NAPH,MB-DB/K PH,MBDB POWDER PACKET PO SCH ×3 (06:52→21:22)
[2016-08-06 07:25] LABS: ALBUMIN 1.4 g/dl (3.4-5.0); ANION GAP 9 (8-16); BILIRUBIN,TOTAL 0.2 mg/dL (0.2-1.0); CO2 21 mmol/L (21-32); CREATININE 0.6 mg/dL (0.7-1.3); GLUCOSE,RANDOM 68 mg/dL (74-106); MAGNESIUM 2.1 mg/dL (1.8-2.4); PHOSPHOROUS 2.6 mg/dL (2.5-4.9); SGOT/AST 25 U/L (15-37); SGPT/ALT 9 U/L (12-78); TOT PROT 5.1 g/dl (6.4-8.2)
[2016-08-06 07:26] LABS: ALK PHOS 82 U/L (45-117)
[2016-08-06 07:29] LABS: COCKROFT - GAULT 98.69
[2016-08-06] MEDS: SODIUM BICARBONATE 8.4% - 150 MEQ in DEXTROSE 5%-WATER - 1,000 ML IV SCH ×2 (08:37→10:30)
[2016-08-06] MEDS ORDERED: PT OWN MED DRAWER 7, Y5N ONE (09:27)
[2016-08-06] MEDS: ERTAPENEM SODIUM 1 GM in SODIUM CHLORIDE 50 ML IVPB SCH (09:30)
[2016-08-06] MEDS: MULTIVITAMINS (DAILY MVI) TABLET (FP) PO SCH (09:31)
[2016-08-06] MEDS: NYSTATIN POWDER 100,000 UNITS/GM - 15 GM TOPICAL POWDER TP SCH (09:31)
[2016-08-06] MEDS: FERROUS SO4 325 MG TABLET (FP) PO SCH ×3 (09:31→21:22)
[2016-08-06] MEDS: TAMSULOSIN HCL 0.4 MG CAP.ER.24H (FP) PO SCH (09:31)
[2016-08-06] MEDS: CYANOCOBALAMIN 1,000 MCG TABLET (FP) PO SCH (09:31)
[2016-08-06] MEDS: ENOXAPARIN NA (PORCINE) 40 MG/0.4 ML DISP.SYRIN SQ SCH (09:31)
[2016-08-06] MEDS: ASPIRIN 81 MG CHEWABLE TABLETS PO SCH ×2 (09:31→22:00)
[2016-08-06] MEDS: FOLIC ACID 1 MG TABLET (FP) PO SCH (09:31)
[2016-08-06] MEDS: COLLAGENASE CLOSTRIDIUM HIST. 30 GRAMS TUBE TP SCH (09:32)
[2016-08-06] MEDS ORDERED: SODIUM BICARBONATE 8.4% - 150 MEQ in DEXTROSE 5%-WATER - 1,000 ML IV SCH (09:50)
--- NOTE | 2016-08-06 10:31 | PN ---
Progress Note (short form) - Note Progress Note: Renal follow up for Metabolic acidosis and Hypernatremia Pt seen and examined in the ICU awake and alert no acute complaints continues to have diarrhea no sob, chest pain Vital Signs Temperature 97.2 F L 08/06/16 04:00 Pulse Rate 55 L 08/06/16 08:00 Respiratory Rate 14 08/06/16 08:00 Blood Pressure 80/48 08/06/16 08:00 O2 Sat by Pulse Oximetry (%) 98 08/06/16 08:10 Intake & Output 08/03/16 08/04/16 08/05/16 08/06/16 23:59 23:59 23:59 23:59 Intake Total 4080 4092 2139 654 Output Total 1100 503 600 Balance 4080 2992 1636 54 Weight 147 lb 6.4 oz 147 lb 6.4 oz 155 lb 5 oz 159 lb 5 oz Gen: NAD CVS: RRR, No M/R Lungs :Dec Bs at lung bases but no rales, wheeze Abd: soft NT/ND Ext: UE edema Neuro: Awake and alert CBC, BMP 08/06/16 05:55 08/06/16 05:55 Laboratory Tests 08/06/16 05:55 Calcium 7.0 L Phosphorus 2.6 Magnesium 2.1 D Albumin 1.4 L Current Medications Acetaminophen (Tylenol -) 650 mg PO Q4H PRN PRN Reason: FEVER OR PAIN Last Admin: 08/05/16 09:00 Dose: 650 mg Ascorbic Acid (Vitamin C -) 500 mg PO TID [facility] Last Admin: 08/06/16 06:51 Dose: 500 mg Aspirin (Asa -) 81 mg PO BID [facility] Last Admin: 08/06/16 09:31 Dose: 81 mg Collagenase (Santyl -) 1 applic TP DAILY [facility] Last Admin: 08/06/16 09:32 Dose: 1 applic Cyanocobalamin (Vitamin B12 -) 1,000 mcg PO DAILY [facility] Last Admin: 08/06/16 09:31 Dose: 1,000 mcg Enoxaparin Sodium (Lovenox -) 40 mg SQ DAILY [facility] Last Admin: 08/06/16 09:31 Dose: 40 mg Ferrous Sulfate (Feosol -) 325 mg PO TID [facility] Last Admin: 08/06/16 09:31 Dose: Not Given Folic Acid (Folic Acid -) 1 mg PO DAILY [facility] Last Admin: 08/06/16 09:31 Dose: 1 mg Guaifenesin (Robitussin -) 10 ml PO Q8H PRN Last Admin: 07/29/16 22:00 Dose: 10 ml Metronidazole (Flagyl 500mg Premixed Ivpb -) 100 mls @ 100 mls/hr IVPB Q8H-IV [facility] Last Admin: 08/06/16 01:02 Dose: 100 mls/hr Ertapenem 1 gm/ Sodium (Chloride) 50 mls @ 100 mls/hr IVPB DAILY [facility] PRN Reason: Protocol Last Admin: 08/06/16 09:30 Dose: 100 mls/hr Sodium Bicarbonate 150 meq/ (Dextrose) 1,150 mls @ 42 mls/hr IV Q24H [facility] Insulin Aspart (Novolog Vial Sliding Scale -) 1 vial SQ ACHS [facility] PRN Reason: Protocol Last Admin: 08/06/16 06:52 Dose: Not Given Levothyroxine Sodium (Synthroid -) 25 mcg PO DAILY@0700 [facility] Last Admin: 08/06/16 06:51 Dose: 25 mcg Multivitamins/Minerals/Vitamin C (Tab-A-Vit -) 1 tab PO DAILY [facility] Last Admin: 08/06/16 09:31 Dose: 1 tab Nystatin (Nystop Powder -) 1 applic TP DAILY [facility] Last Admin: 08/06/16 09:31 Dose: 1 applic Ondansetron HCl (Zofran Injection) 4 mg IVPB Q6H PRN PRN Reason: NAUSEA Potassium Phos/Sodium Phos (Phos-Nak Packet -) 1 packet PO TID [facility] Last Admin: 08/06/16 06:52 Dose: 1 packet Tamsulosin HCl (Flomax -) 0.4 mg PO DAILY@0830 [facility] Last Admin: 08/06/16 09:31 Dose: 0.4 mg Vancomycin HCl (Vancomycin Oral Solution) 125 mg PO Q6HPO [facility] Last Admin: 08/06/16 06:51 Dose: 125 mg A/P 80 year old Gentleman with PMhx of AAA, Hypertension, GERD, DM Type 2, Anemia, C. Diff colitis, Hyperlipidemia, CAD with Hx of [place] presented with hypothermia and found to have Sepsis related to UTI and C. Diff Colitis with diarrhea with metabolic acidosis and hypernatremia. #Metabolic acidosis (NAG) Urine anion gap is negative indicating diarrhea is etiology of acidosis Continue bicarb gtt at present rate as pt continues to have diarrhea goal Bicarb ~22 #Hypernatremia Na is stable continues to loose water via diarrhea trend Na on isotonic fluids for now #Sepsis/Hypothermia/Cdiff continue Abx as per ICU/ID supportive Care #Hypophosphatemia Continue Neutraphos #Hypomagnesemia improved s/p IV supplementation yesterday #Anemia Transfuse as per ICU protocol Medardo Huerta DO
--- NOTE | 2016-08-06 11:25 | PN ---
Teaching Attending Note Name of Resident: Madina Saldana ATTENDING PHYSICIAN STATEMENT I saw and evaluated the patient. I reviewed the resident's note and discussed the case with the resident. I agree with the resident's findings and plan as documented. SUBJECTIVE: Patient seen and examined in the ICU. Awake and alert. Blood pressure remains marginal but he is relatively asymptomatic. No fevers recorded. Still with diarrhea. OBJECTIVE: Intake & Output 08/03/16 08/04/16 08/05/16 08/06/16 23:59 23:59 23:59 23:59 Intake Total 4080 4092 2139 654 Output Total 1100 503 600 Balance 4080 2992 1636 54 Weight 147 lb 6.4 oz 147 lb 6.4 oz 155 lb 5 oz 159 lb 5 oz Last Vital Signs Temp Pulse Resp BP Pulse Ox 97.2 F L 55 L 14 80/48 98 08/06/16 04:00 08/06/16 08:00 08/06/16 08:00 08/06/16 08:00 08/06/16 08:10 Active Medications Acetaminophen (Tylenol -) 650 mg PO Q4H PRN PRN Reason: FEVER OR PAIN Last Admin: 08/05/16 09:00 Dose: 650 mg Ascorbic Acid (Vitamin C -) 500 mg PO TID [facility] Last Admin: 08/06/16 06:51 Dose: 500 mg Aspirin (Asa -) 81 mg PO BID [facility] Last Admin: 08/06/16 09:31 Dose: 81 mg Collagenase (Santyl -) 1 applic TP DAILY [facility] Last Admin: 08/06/16 09:32 Dose: 1 applic Cyanocobalamin (Vitamin B12 -) 1,000 mcg PO DAILY [facility] Last Admin: 08/06/16 09:31 Dose: 1,000 mcg Enoxaparin Sodium (Lovenox -) 40 mg SQ DAILY [facility] Last Admin: 08/06/16 09:31 Dose: 40 mg Ferrous Sulfate (Feosol -) 325 mg PO TID [facility] Last Admin: 08/06/16 09:31 Dose: Not Given Folic Acid (Folic Acid -) 1 mg PO DAILY [facility] Last Admin: 08/06/16 09:31 Dose: 1 mg Guaifenesin (Robitussin -) 10 ml PO Q8H PRN Last Admin: 07/29/16 22:00 Dose: 10 ml Metronidazole (Flagyl 500mg Premixed Ivpb -) 100 mls @ 100 mls/hr IVPB Q8H-IV [facility] Last Admin: 08/06/16 10:30 Dose: 100 mls/hr Ertapenem 1 gm/ Sodium (Chloride) 50 mls @ 100 mls/hr IVPB DAILY [facility] PRN Reason: Protocol Last Admin: 08/06/16 09:30 Dose: 100 mls/hr Sodium Bicarbonate 150 meq/ (Dextrose) 1,150 mls @ 42 mls/hr IV Q24H [facility] Last Admin: 08/06/16 10:30 Dose: Not Given Insulin Aspart (Novolog Vial Sliding Scale -) 1 vial SQ ACHS [facility] PRN Reason: Protocol Last Admin: 08/06/16 10:53 Dose: Not Given Levothyroxine Sodium (Synthroid -) 25 mcg PO DAILY@0700 [facility] Last Admin: 08/06/16 06:51 Dose: 25 mcg Multivitamins/Minerals/Vitamin C (Tab-A-Vit -) 1 tab PO DAILY [facility] Last Admin: 08/06/16 09:31 Dose: 1 tab Nystatin (Nystop Powder -) 1 applic TP DAILY [facility] Last Admin: 08/06/16 09:31 Dose: 1 applic Ondansetron HCl (Zofran Injection) 4 mg IVPB Q6H PRN PRN Reason: NAUSEA Potassium Phos/Sodium Phos (Phos-Nak Packet -) 1 packet PO TID [facility] Last Admin: 08/06/16 06:52 Dose: 1 packet Tamsulosin HCl (Flomax -) 0.4 mg PO DAILY@0830 [facility] Last Admin: 08/06/16 09:31 Dose: 0.4 mg Vancomycin HCl (Vancomycin Oral Solution) 125 mg PO Q6HPO [facility] Last Admin: 08/06/16 06:51 Dose: 125 mg Gen: more alert, awake Heart: RRR Lung: bilateral rhonchi Abd: soft, nontender Ext: + edema Laboratory Results - last 24 hr 08/05/16 08/06/16 08/06/16 16:43 05:55 05:55 WBC 11.6 H RBC 2.61 L Hgb 8.7 L Hct 26.7 L MCV 102.5 H MCHC 32.7 RDW 16.4 H Plt Count 251 MPV 9.2 Neutrophils % 81.2 Lymphocytes % 12.0 D Monocytes % 5.2 Eosinophils % 0.6 Basophils % 1.0 Sodium 149 H Potassium 3.7 Chloride 119 H Carbon Dioxide 21 Anion Gap 9 BUN 7 Creatinine 0.6 L Creat Clearance w eGFR > 60 POC Glucometer 142.63135 Random Glucose 68 L Calcium 7.0 L Phosphorus 2.6 Magnesium 2.1 D Total Bilirubin 0.2 AST 25 D ALT 9 L Alkaline Phosphatase 82 Total Protein 5.1 L Albumin 1.4 L ASSESSMENT AND PLAN: UTI C Diff Colitis Pneumonia vs Atelectasis Septic Shock CAD LV Systolic Dysfunction HTN Hypothyroidism - continue antibiotics per ID - Agree with IVF - monitor urine output, creatinine - replete lytes - free water - continue synthroid - aspiration precautions - attempt incentive spirometry - DVT prophylaxis - continue ICU monitoring for tenuous status Dr Salguero Critical care time spent in reviewing chart, evaluating patient and formulating plan 40 min
--- NOTE | 2016-08-06 12:44 | PN ---
Progress Note (short form) - Note Progress Note: Awake, interactive in conversation. Continues to have profuse diarrhea Still hypotensive/hypothermic, and bradycardic at times. Denies chest pain, shortness of breath, palpitation or dizziness. O/E Vital Signs Period Temp Pulse Resp BP Sys/Martino Pulse Ox Last 24 Hr 96.8 F-97.2 F 44-58 11-19 71-91/41-61 96-98 Heartt regular Lungs clear' Abd soft Ext no edema Not cold Current Medications Generic Name Dose Route Start Last Admin Trade Name Freq PRN Reason Stop Dose Admin Acetaminophen 650 mg 07/27/16 19:04 08/05/16 09:00 Tylenol - PO 650 mg Q4H PRN Administration FEVER OR PAIN Ascorbic Acid 500 mg 07/27/16 22:00 08/05/16 06:07 Vitamin C - PO 500 mg TID [facility] Administration Aspirin 81 mg 07/27/16 22:00 08/05/16 08:59 Asa - PO 81 mg BID [facility] Administration Collagenase 1 applic 08/05/16 12:30 Santyl - TP DAILY [facility] Cyanocobalamin 1,000 mcg 07/28/16 10:00 08/05/16 09:00 Vitamin B12 - PO 1,000 mcg DAILY [facility] Administration Enoxaparin Sodium 40 mg 07/28/16 10:00 08/05/16 09:00 Lovenox - SQ 40 mg DAILY [facility] Administration Ferrous Sulfate 325 mg 07/27/16 22:00 08/05/16 06:07 Feosol - PO 325 mg TID [facility] Administration Folic Acid 1 mg 07/28/16 10:00 08/05/16 09:00 Folic Acid - PO 1 mg DAILY [facility] Administration Guaifenesin 10 ml 07/29/16 21:53 07/29/16 22:00 Robitussin - PO 10 ml Q8H PRN Administration Metronidazole 100 mls @ 100 mls/hr 08/02/16 18:00 08/05/16 09:00 Flagyl 500mg Premixed Ivpb - IVPB 100 mls/hr Q8H-IV [facility] Administration Ertapenem 1 gm/ Sodium 50 mls @ 100 mls/hr 08/03/16 10:00 08/05/16 10:08 Chloride IVPB 100 mls/hr DAILY [facility] Administration Protocol Sodium Bicarbonate 150 meq/ 1,150 mls @ 83 mls/hr 08/04/16 11:30 08/05/16 02:30 Dextrose IV 83 mls/hr Q13H [facility] Administration Insulin Aspart 1 vial 07/27/16 22:00 08/05/16 10:51 Novolog Vial Sliding Scale - SQ Not Given ACHS [facility] Protocol Levothyroxine Sodium 25 mcg 08/04/16 11:15 08/05/16 06:07 Synthroid - PO 25 mcg DAILY@0700 [facility] Administration Multivitamins/Minerals/Vitamin C 1 tab 07/28/16 10:00 08/05/16 09:01 Tab-A-Vit - PO 1 tab DAILY [facility] Administration Nystatin 1 applic 08/05/16 12:30 Nystop Powder - TP DAILY [facility] Ondansetron HCl 4 mg 07/27/16 19:04 Zofran Injection IVPB Q6H PRN [facility] Potassium Phos/Sodium Phos 1 packet 07/27/16 22:00 08/05/16 06:07 Phos-Nak Packet - PO 1 packet TID [facility] Administration Tamsulosin HCl 0.4 mg 07/28/16 08:30 08/05/16 08:58 Flomax - PO 0.4 mg DAILY@0830 [facility] Administration Vancomycin HCl 125 mg 08/02/16 18:00 08/05/16 11:41 Vancomycin Oral Solution PO 125 mg Q6HPO [facility] Administration CBC, BMP 08/06/16 05:55 08/06/16 05:55 Microbiology 08/02/16 07:15 Blood - Peripheral Venous Blood Culture - Preliminary NO GROWTH OBTAINED AFTER 24 HOURS, INCUBATION TO CONTINUE FOR 4 DAYS. 08/02/16 06:55 Blood - Peripheral Venous Blood Culture - Preliminary NO GROWTH OBTAINED AFTER 24 HOURS, INCUBATION TO CONTINUE FOR 4 DAYS. A&P (1) UTI (urinary tract infection) Assessment/Plan: Continue IV abx ID follow up appreciated. Code(s): N39.0 - URINARY TRACT INFECTION, SITE NOT SPECIFIED (2) C diff colitis Assessment/Plan: - Still with profuse diarrhea -Continue oral vancomycin and IV flagyl Code(s): R19.7 - DIARRHEA, UNSPECIFIED Qualifiers: Diarrhea type: unspecified type Qualified Code(s): R19.7 - Diarrhea, unspecified (3) Hypothermia Sepsis protocol. (4) Anemia Assessment/Plan: -chronic and stable Code(s): D64.9 - ANEMIA, UNSPECIFIED Qualifiers: Anemia type: other cause Other causes of anemia: other cause, not classified Qualified Code(s): D64.89 - Other specified anemias (5) Chronic systolic CHF (congestive heart failure) Assessment/Plan: -not in exacerbation -continue hydration for sepsis Code(s): I50.22 - CHRONIC SYSTOLIC (CONGESTIVE) HEART FAILURE (6) CAD (coronary artery disease) -continue home regimen -cardiology following Code(s): I25.10 - ATHSCL HEART DISEASE OF [place] CORONARY ARTERY W/O ANG PCTRS (7) HTN (hypertension) Assessment/Plan: Code(s): I10 - ESSENTIAL (PRIMARY) HYPERTENSION Now hypotensive. BP meds on hold. (8) Hypernatremia Assessment/Plan: -Continue D5 1/NS - Renal follow up appreciated. Code(s): E87.0 - HYPEROSMOLALITY AND HYPERNATREMIA 9) Bradycardia Cardiology follow up appreciated. 10) Hypothyroidism TSH high. Continue levothyroxine 25 mcg daily.
--- NOTE | 2016-08-06 12:59 | PN ---
Physical Exam: SUBJECTIVE: Patient seen and examined. He is feeling good today, reading magazines, books. He denies chest pain, SOB, dizziness, weakness, vision problems. OBJECTIVE: Vital Signs Period Temp Pulse Resp BP Sys/Martino Pulse Ox Last 24 Hr 96.8 F-97.2 F 44-58 11-19 71-91/41-61 96-98 GENERAL: The patient is awake, alert, and fully oriented, in no acute distress. HEAD: Normal with no signs of trauma. EYES: extraocular movements intact, sclera anicteric, conjunctiva clear. ENT: oropharynx clear without exudates, moist mucous membranes. NECK: Trachea midline, supple. LUNGS: Breath sounds equal, diminished breath sounds bilaterally, no wheezes, no crackles, no accessory muscle use. HEART: Regular rate and rhythm, S1, S2 without murmur, rub or gallop. ABDOMEN: Soft, nontender, nondistended, normoactive bowel sounds, no guarding, no rebound, no hepatosplenomegaly, no masses. EXTREMITIES: warm, 1+ edema in hands and feet b/l, amputated left toe, no erythema. NEUROLOGICAL: Normal speech, gait not observed. PSYCH: Normal mood, normal affect. SKIN: Warm, dry, normal turgor, venous stasis changes in lower extremities B/L. Laboratory Results - last 24 hr 08/05/16 08/05/16 08/06/16 16:43 21:30 05:55 WBC 11.6 H RBC 2.61 L Hgb 8.7 L Hct 26.7 L MCV 102.5 H MCHC 32.7 RDW 16.4 H Plt Count 251 MPV 9.2 Neutrophils % 81.2 Lymphocytes % 12.0 D Monocytes % 5.2 Eosinophils % 0.6 Basophils % 1.0 Sodium Potassium Chloride Carbon Dioxide Anion Gap BUN Creatinine Creat Clearance w eGFR POC Glucometer 142.75508 107.73856 Random Glucose Calcium Phosphorus Magnesium Total Bilirubin AST ALT Alkaline Phosphatase Total Protein Albumin 08/06/16 08/06/16 05:55 10:48 WBC RBC Hgb Hct MCV MCHC RDW Plt Count MPV Neutrophils % Lymphocytes % Monocytes % Eosinophils % Basophils % Sodium 149 H Potassium 3.7 Chloride 119 H Carbon Dioxide 21 Anion Gap 9 BUN 7 Creatinine 0.6 L Creat Clearance w eGFR > 60 POC Glucometer 123.41525 Random Glucose 68 L Calcium 7.0 L Phosphorus 2.6 Magnesium 2.1 D Total Bilirubin 0.2 AST 25 D ALT 9 L Alkaline Phosphatase 82 Total Protein 5.1 L Albumin 1.4 L Active Medications Generic Name Dose Route Start Last Admin Trade Name Freq PRN Reason Stop Dose Admin Acetaminophen 650 mg 07/27/16 19:04 08/05/16 09:00 Tylenol - PO 650 mg Q4H PRN Administration FEVER OR PAIN Ascorbic Acid 500 mg 07/27/16 22:00 08/06/16 06:51 Vitamin C - PO 500 mg TID OLESYA Administration Aspirin 81 mg 07/27/16 22:00 08/06/16 09:31 Asa - PO 81 mg BID OLESYA Administration Collagenase 1 applic 08/05/16 12:30 08/06/16 09:32 Santyl - TP 1 applic DAILY OLESYA Administration Cyanocobalamin 1,000 mcg 07/28/16 10:00 08/06/16 09:31 Vitamin B12 - PO 1,000 mcg DAILY OLESYA Administration Enoxaparin Sodium 40 mg 07/28/16 10:00 08/06/16 09:31 Lovenox - SQ 40 mg DAILY OLESYA Administration Ferrous Sulfate 325 mg 07/27/16 22:00 08/06/16 09:31 Feosol - PO Not Given TID OLESYA Folic Acid 1 mg 07/28/16 10:00 08/06/16 09:31 Folic Acid - PO 1 mg DAILY OLESYA Administration Guaifenesin 10 ml 07/29/16 21:53 07/29/16 22:00 Robitussin - PO 10 ml Q8H PRN Administration Metronidazole 100 mls @ 100 mls/hr 08/02/16 18:00 08/06/16 10:30 Flagyl 500mg Premixed Ivpb - IVPB 100 mls/hr Q8H-IV OLESYA Administration Ertapenem 1 gm/ Sodium 50 mls @ 100 mls/hr 08/03/16 10:00 08/06/16 09:30 Chloride IVPB 100 mls/hr DAILY OLESYA Administration Protocol Sodium Bicarbonate 150 meq/ 1,150 mls @ 42 mls/hr 08/06/16 10:00 08/06/16 10:30 Dextrose IV Not Given Q24H OLESYA Insulin Aspart 1 vial 07/27/16 22:00 08/06/16 10:53 Novolog Vial Sliding Scale - SQ Not Given ACHS [facility] Protocol Levothyroxine Sodium 25 mcg 08/04/16 11:15 08/06/16 06:51 Synthroid - PO 25 mcg DAILY@0700 OLESYA Administration Multivitamins/Minerals/Vitamin C 1 tab 07/28/16 10:00 08/06/16 09:31 Tab-A-Vit - PO 1 tab DAILY OLESYA Administration Nystatin 1 applic 08/05/16 12:30 08/06/16 09:31 Nystop Powder - TP 1 applic DAILY OLESYA Administration Ondansetron HCl 4 mg 07/27/16 19:04 Zofran Injection IVPB Q6H PRN NAUSEA Potassium Phos/Sodium Phos 1 packet 07/27/16 22:00 08/06/16 06:52 Phos-Nak Packet - PO 1 packet TID OLESYA Administration Tamsulosin HCl 0.4 mg 07/28/16 08:30 08/06/16 09:31 Flomax - PO 0.4 mg DAILY@0830 OLESYA Administration Vancomycin HCl 125 mg 08/02/16 18:00 08/06/16 06:51 Vancomycin Oral Solution PO 125 mg Q6HPO OLESYA Administration 08/05/16 13:00 Urine For Antigen Detection Legionella Antigen - Final 08/05/16 13:00 Urine For Antigen Detection Streptococcus pneumoniae Antigen (M - Final 08/02/16 07:15 Blood - Peripheral Venous Blood Culture - Preliminary NO GROWTH OBTAINED AFTER 72 HOURS, INCUBATION TO CONTINUE FOR 2 DAYS. 08/02/16 06:55 Blood - Peripheral Venous Blood Culture - Preliminary NO GROWTH OBTAINED AFTER 72 HOURS, INCUBATION TO CONTINUE FOR 2 DAYS. 07/27/16 10:35 Blood - Peripheral Venous Blood Culture - Final NO GROWTH AFTER 5 DAYS INCUBATION 07/27/16 10:25 Blood - Peripheral Venous Blood Culture - Final NO GROWTH AFTER 5 DAYS INCUBATION 07/27/16 02:45 Urine - Urine - Catheterized Urine Culture - Final Escherichia Coli Esbl Intranet Support Enterococcus Faecium 07/27/16 17:15 Stool Clostridium difficile Antigen (VICTOR M) - Final 07/27/16 17:15 Stool Clostridium difficile Toxin Assay - Final CXR 08/05/16: pleural effusion on right and left side. ASSESSMENT/PLAN: 80 year old male with a PMH of AAA, HTN, DM type 2, hypothyroidism, anemia, h/o of C.Diff in March 2016, CAD who was brought to the hospital from [facility] for hypothermia. He originally was admitted to the floor but was found to be hypothermic and transferred to the ICU. Hypothermia: -the pt had temp 93 recorded -no mote hypothermia Septic shock due to UTI: -hypothermia, hypotension, and leukocytosis -cont. bicarbonate to rate 42 ml/hr -continue antibiotics Flagyl and Ertapenem -repeated UA shows 3+ Leuk Est. -follow up urine cultures Combined Anion gap and non-anion gap metabolic acidosis with resp compensation -etology not known -D5w with 75 meq of NaHCO3 at 42cc per hour -trend serum Bicarb -if CO2 less then 15 repeat abg Hypernatremia: -continue bicarbonate -monitor possible HCAP -patient with chest pain and productive cough -f/u CXR daily -ID consulted -f/u antibiotics Diarrhea -secondary to c. diff -continue flagyl Chest pain -no ACS -f/u cardiology recommendation Hypokalemia: -repleated -will monitor Hypomagnesemia: -repleated Anemia -chronic -continue iron -monitor tomorrow Chronic systolic CHF (congestive heart failure) -not in exacerbation -f/u cardiology recommendation HTN -currently hypotensive -holding toprol xl Disposition: monitor in ICU Problem List - Problems (1) Anemia Code(s): D64.9 - ANEMIA, UNSPECIFIED Qualifiers: Anemia type: other cause Other causes of anemia: other cause, not classified Qualified Code(s): D64.89 - Other specified anemias (2) Chest pain Code(s): R07.9 - CHEST PAIN, UNSPECIFIED (3) Chronic systolic CHF (congestive heart failure) Code(s): I50.22 - CHRONIC SYSTOLIC (CONGESTIVE) HEART FAILURE (4) HCAP (healthcare-associated pneumonia) Code(s): J18.9 - PNEUMONIA, UNSPECIFIED ORGANISM (5) Hypernatremia Code(s): E87.0 - HYPEROSMOLALITY AND HYPERNATREMIA (6) Hypoxia Code(s): R09.02 - HYPOXEMIA (7) Pneumonia Code(s): J18.9 - PNEUMONIA, UNSPECIFIED ORGANISM Qualifiers: Pneumonia type: due to unspecified organism Laterality: right Lung location: lower lobe of lung Qualified Code(s): J18.1 - Lobar pneumonia, unspecified organism (8) Septic shock Code(s): A41.9 - SEPSIS, UNSPECIFIED ORGANISM R65.21 - SEVERE SEPSIS WITH SEPTIC SHOCK (9) UTI (urinary tract infection) Code(s): N39.0 - URINARY TRACT INFECTION, SITE NOT SPECIFIED (10) Bradycardia Code(s): R00.1 - BRADYCARDIA, UNSPECIFIED (11) CAD (coronary artery disease) Code(s): I25.10 - ATHSCL HEART DISEASE OF [place] CORONARY ARTERY W/O ANG PCTRS (12) Dehydration Code(s): E86.0 - DEHYDRATION (13) Diabetes mellitus type 2 in nonobese Code(s): E11.9 - TYPE 2 DIABETES MELLITUS WITHOUT COMPLICATIONS (14) Diarrhea Code(s): R19.7 - DIARRHEA, UNSPECIFIED Qualifiers: Diarrhea type: infectious Qualified Code(s): A09 - Infectious gastroenteritis and colitis, unspecified (15) HLD (hyperlipidemia) Code(s): E78.5 - HYPERLIPIDEMIA, UNSPECIFIED (16) HTN (hypertension) Code(s): I10 - ESSENTIAL (PRIMARY) HYPERTENSION Visit type - Emergency Visit Emergency Visit: Yes ED Registration Date: 07/26/16 Care time: The patient presented to the Emergency Department on the above date and was hospitalized for further evaluation of their emergent condition. - New Patient This patient is new to me today: No - Critical Care Critical Care patient: Yes Total Critical Care Time (in minutes): 50 Critical Care Statement: The care of this patient involved high complexity decision making to prevent further life threatening deterioration of the patient 's condition and/or to evalute & treat vital organ system(s) failure or risk of failure.
--- NOTE | 2016-08-06 14:03 | PN ---
Progress Note, Physician History of Present Illness: doing much better no new issues - Current Medication List Current Medications: Active Medications Acetaminophen (Tylenol -) 650 mg PO Q4H PRN PRN Reason: FEVER OR PAIN Last Admin: 08/05/16 09:00 Dose: 650 mg Ascorbic Acid (Vitamin C -) 500 mg PO TID [facility] Last Admin: 08/06/16 13:06 Dose: 500 mg Aspirin (Asa -) 81 mg PO BID [facility] Last Admin: 08/06/16 09:31 Dose: 81 mg Collagenase (Santyl -) 1 applic TP DAILY [facility] Last Admin: 08/06/16 09:32 Dose: 1 applic Cyanocobalamin (Vitamin B12 -) 1,000 mcg PO DAILY [facility] Last Admin: 08/06/16 09:31 Dose: 1,000 mcg Enoxaparin Sodium (Lovenox -) 40 mg SQ DAILY [facility] Last Admin: 08/06/16 09:31 Dose: 40 mg Ferrous Sulfate (Feosol -) 325 mg PO TID [facility] Last Admin: 08/06/16 13:06 Dose: 325 mg Folic Acid (Folic Acid -) 1 mg PO DAILY [facility] Last Admin: 08/06/16 09:31 Dose: 1 mg Guaifenesin (Robitussin -) 10 ml PO Q8H PRN Last Admin: 07/29/16 22:00 Dose: 10 ml Metronidazole (Flagyl 500mg Premixed Ivpb -) 100 mls @ 100 mls/hr IVPB Q8H-IV [facility] Last Admin: 08/06/16 10:30 Dose: 100 mls/hr Ertapenem 1 gm/ Sodium (Chloride) 50 mls @ 100 mls/hr IVPB DAILY [facility] PRN Reason: Protocol Last Admin: 08/06/16 09:30 Dose: 100 mls/hr Sodium Bicarbonate 150 meq/ (Dextrose) 1,150 mls @ 42 mls/hr IV Q24H [facility] Last Admin: 08/06/16 10:30 Dose: Not Given Insulin Aspart (Novolog Vial Sliding Scale -) 1 vial SQ ACHS [facility] PRN Reason: Protocol Last Admin: 08/06/16 10:53 Dose: Not Given Levothyroxine Sodium (Synthroid -) 25 mcg PO DAILY@0700 [facility] Last Admin: 08/06/16 06:51 Dose: 25 mcg Multivitamins/Minerals/Vitamin C (Tab-A-Vit -) 1 tab PO DAILY [facility] Last Admin: 08/06/16 09:31 Dose: 1 tab Nystatin (Nystop Powder -) 1 applic TP DAILY [facility] Last Admin: 08/06/16 09:31 Dose: 1 applic Ondansetron HCl (Zofran Injection) 4 mg IVPB Q6H PRN PRN Reason: NAUSEA Potassium Phos/Sodium Phos (Phos-Nak Packet -) 1 packet PO TID [facility] Last Admin: 08/06/16 13:06 Dose: 1 packet Tamsulosin HCl (Flomax -) 0.4 mg PO DAILY@0830 [facility] Last Admin: 08/06/16 09:31 Dose: 0.4 mg Vancomycin HCl (Vancomycin Oral Solution) 125 mg PO Q6HPO [facility] Last Admin: 08/06/16 12:56 Dose: 125 mg - Objective Vital Signs: Vital Signs Temperature 96.8 F L 08/06/16 10:00 Pulse Rate 46 L 08/06/16 12:00 Respiratory Rate 14 08/06/16 12:00 Blood Pressure 83/54 08/06/16 12:00 O2 Sat by Pulse Oximetry (%) 98 08/06/16 11:50 Constitutional: Yes: No Distress, Calm Cardiovascular: Yes: Regular Rate and Rhythm, Bradycardia Respiratory: Yes: Regular, Rhonchi, Other Gastrointestinal: Yes: Normal Bowel Sounds, Soft Musculoskeletal: Yes: WNL Extremities: Yes: WNL Neurological: Yes: Alert Psychiatric: Yes: Alert Labs: CBC, BMP 08/06/16 05:55 08/06/16 05:55 INR, PTT INR 1.17 (0.82-1.09) H 07/26/16 19:07 - ....Imaging Chest X-ray: Report Reviewed, Image Reviewed Assessment/Plan Problem List - Problems (1) Septic shock Code(s): A41.9 - SEPSIS, UNSPECIFIED ORGANISM R65.21 - SEVERE SEPSIS WITH SEPTIC SHOCK (2) HCAP (healthcare-associated pneumonia) Code(s): J18.9 - PNEUMONIA, UNSPECIFIED ORGANISM (3) UTI (urinary tract infection) Code(s): N39.0 - URINARY TRACT INFECTION, SITE NOT SPECIFIED (4) Diarrhea Code(s): R19.7 - DIARRHEA, UNSPECIFIED Qualifiers: Diarrhea type: unspecified type Qualified Code(s): R19.7 - Diarrhea, unspecified (5) Chest pain Code(s): R07.9 - CHEST PAIN, UNSPECIFIED (6) Anemia Code(s): D64.9 - ANEMIA, UNSPECIFIED Qualifiers: Anemia type: other cause Other causes of anemia: other cause, not classified Qualified Code(s): D64.89 - Other specified anemias (7) Chronic systolic CHF (congestive heart failure) Code(s): I50.22 - CHRONIC SYSTOLIC (CONGESTIVE) HEART FAILURE (8) CAD (coronary artery disease) Code(s): I25.10 - ATHSCL HEART DISEASE OF [place] CORONARY ARTERY W/O ANG PCTRS (9) Dehydration Code(s): E86.0 - DEHYDRATION (10) HTN (hypertension) Code(s): I10 - ESSENTIAL (PRIMARY) HYPERTENSION (11) Hypernatremia Code(s): E87.0 - HYPEROSMOLALITY AND HYPERNATREMIA 12 hypothermia 13 cdiff plan conitnue current mgmt cx results noted all negative so far urine negative ct abx for now will probably stop ertapenam in a day or so depending on patient behaves and how lung sounds rest as per icu cardio0 note noted cc time 40 min
[2016-08-06] MEDS ORDERED: ASPIRIN 81 MG CHEWABLE TABLETS ONE (20:24)
[2016-08-06] MEDS: ACETAMINOPHEN 325 MG TABLET (FP) PO PRN (21:23)
--- NOTE | 2016-08-06 23:48 | PN ---
Progress Note (short form) - Note Progress Note: cc: sob s: denies cp, sob, palps, dizziness. Remains hypotensive. Appears stronger then yesterday, less dizziness. Current Medications Acetaminophen (Tylenol -) 650 mg PO Q4H PRN PRN Reason: FEVER OR PAIN Last Admin: 08/06/16 21:23 Dose: 650 mg Ascorbic Acid (Vitamin C -) 500 mg PO TID [facility] Last Admin: 08/06/16 21:22 Dose: 500 mg Aspirin (Asa -) 81 mg PO BID [facility] Last Admin: 08/06/16 09:31 Dose: 81 mg Collagenase (Santyl -) 1 applic TP DAILY [facility] Last Admin: 08/06/16 09:32 Dose: 1 applic Cyanocobalamin (Vitamin B12 -) 1,000 mcg PO DAILY [facility] Last Admin: 08/06/16 09:31 Dose: 1,000 mcg Enoxaparin Sodium (Lovenox -) 40 mg SQ DAILY [facility] Last Admin: 08/06/16 09:31 Dose: 40 mg Ferrous Sulfate (Feosol -) 325 mg PO TID [facility] Last Admin: 08/06/16 21:22 Dose: 325 mg Folic Acid (Folic Acid -) 1 mg PO DAILY [facility] Last Admin: 08/06/16 09:31 Dose: 1 mg Guaifenesin (Robitussin -) 10 ml PO Q8H PRN Last Admin: 07/29/16 22:00 Dose: 10 ml Metronidazole (Flagyl 500mg Premixed Ivpb -) 100 mls @ 100 mls/hr IVPB Q8H-IV [facility] Last Admin: 08/06/16 17:52 Dose: 100 mls/hr Ertapenem 1 gm/ Sodium (Chloride) 50 mls @ 100 mls/hr IVPB DAILY [facility] PRN Reason: Protocol Last Admin: 08/06/16 09:30 Dose: 100 mls/hr Sodium Bicarbonate 150 meq/ (Dextrose) 1,150 mls @ 42 mls/hr IV Q24H [facility] Last Admin: 08/06/16 10:30 Dose: Not Given Insulin Aspart (Novolog Vial Sliding Scale -) 1 vial SQ ACHS [facility] PRN Reason: Protocol Last Admin: 08/06/16 16:05 Dose: Not Given Levothyroxine Sodium (Synthroid -) 25 mcg PO DAILY@0700 [facility] Last Admin: 08/06/16 06:51 Dose: 25 mcg Multivitamins/Minerals/Vitamin C (Tab-A-Vit -) 1 tab PO DAILY [facility] Last Admin: 08/06/16 09:31 Dose: 1 tab Nystatin (Nystop Powder -) 1 applic TP DAILY [facility] Last Admin: 08/06/16 09:31 Dose: 1 applic Ondansetron HCl (Zofran Injection) 4 mg IVPB Q6H PRN PRN Reason: NAUSEA Potassium Phos/Sodium Phos (Phos-Nak Packet -) 1 packet PO TID [facility] Last Admin: 08/06/16 21:22 Dose: 1 packet Tamsulosin HCl (Flomax -) 0.4 mg PO DAILY@0830 [facility] Last Admin: 08/06/16 09:31 Dose: 0.4 mg Vancomycin HCl (Vancomycin Oral Solution) 125 mg PO Q6HPO [facility] Last Admin: 08/06/16 17:52 Dose: 125 mg Vital Signs Period Temp Pulse Resp BP Sys/Martino Pulse Ox Last 24 Hr 96.8 F-97.2 F 40-69 11-20 71-114/41-72 98-98 Intake & Output 08/04/16 08/05/16 08/06/16 08/07/16 07:59 07:59 07:59 07:59 Intake Total 5120 2963 1862 700 Output Total 1100 1103 300 Balance 5120 1863 759 400 Weight 147 lb 6.4 oz 155 lb 5 oz 159 lb 5 oz nad no jvd, cachectic rrr s1s2 no mrg bibasilar crackles/rhonchi (improved), nl eff awake, alert, appropriate abd nt nd pos bs no jaundice diaphoresis no le e/c/c Focal edema of right ankle (chronic intermittent per patient) Focal edema of left arm (arm with IV) mild chest wall tender to palp CBC, BMP 08/06/16 05:55 08/06/16 05:55 ecg 07/26/16: sr 59, nl intervals, no ischemic changes cxr: no chf mibi 10/2011: large inferolateral scar, no ischemia, lvef 35% tele: sb. pvc's. 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 sepsis: -bp initially improved with ivfs, recently worsening hypotension with sx's of dizziness. Now improving with IVF. Aggressive IVF as needed. -cont abx per ID, mgm't per ICU - 08/06 IVF decreased b/c of concern for volume overload, hypernatremia worsened. Edema is focal and localized primarily to left arm (more consistent with superficial phlebitis than volume overload) and right ankle. Doppler u/s per pmd. Edema focal and not consistent with volume overload. Would con't liberal IVF. htn: -septic, bp on low side, holding htn meds. poor po intake, on IVF hld: -stable, not on statin on home med list, outpt f/u cad/mi: -prior mibi showing infarct, no ischemia -no signs acs, trop neg x2 - cp here seems MSK after a recent fall -cont home asa chronic systolic chf: -no signs vol overload -monitor vol status with ivfs, but no signs of volume overload at this time. see discussion above. Ok to give IVF liberally. -echo here showing nl lvef -not on bb due to bradycardia bradycardia: -pt with known sinus tashia evaluated with holter on prior admit that showed no pathologic bradycardia -tele here with sr in 40s at times so have stopped bb, avoid meds that cause bradycardia - avoid qt prolonging drugs when possible. - potassium repletion cct 35 min
[2016-08-07] MEDS: METRONIDAZOLE 500 MG PREMIXED 100 ML IVPB SCH ×3 (01:59→17:42)
[2016-08-07] MEDS: ASCORBIC ACID 500 MG TABLET (FP) PO SCH ×3 (05:50→22:23)
[2016-08-07] MEDS: NAPH,MB-DB/K PH,MBDB POWDER PACKET PO SCH ×3 (05:50→22:22)
[2016-08-07] MEDS: FERROUS SO4 325 MG TABLET (FP) PO SCH ×3 (05:50→22:21)
[2016-08-07] MEDS: VANCOMYCIN 250 MG/5 ML ORAL SOLUTION PO SCH ×4 (05:50→17:39)
[2016-08-07] MEDS: INSULIN SLIDING SCALE (NOVOLOG) 1 VIAL SQ SCH ×4 (06:10→22:21)
[2016-08-07] MEDS: LEVOTHYROXINE NA 25 MCG TABLET (FP) PO SCH (06:10)
[2016-08-07 06:29] LABS: BASOPHIL 0.7 % (0-2.0); EOSINOPHIL 0.4 % (0-4.5); MCH 32.5 pg (25.7-33.7); MCHC 32.2 g/dl (32.0-35.9); MEAN CELL VOLUME 100.9 fl (80-96); MEAN PLT VOLUME 9.1 fl (7.5-11.1); NEUTROPHILS 88.9 % (42.8-82.8); PLATELET COUNT 278 K/MM3 (134-434); RDW 16.4 % (11.9-15.9); WHITE BLOOD COUNT 18.7 K/mm3 (4.0-10.0)
[2016-08-07 06:52] LABS: ALBUMIN 1.4 g/dl (3.4-5.0); ANION GAP 8 (8-16); BILIRUBIN,TOTAL 0.2 mg/dL (0.2-1.0); CALCIUM 7.3 mg/dL (8.5-10.1); CO2 20 mmol/L (21-32); COCKROFT - GAULT 98.69; CREATININE 0.6 mg/dL (0.7-1.3); GLUCOSE,RANDOM 91 mg/dL (74-106); PHOSPHOROUS 2.7 mg/dL (2.5-4.9); SGOT/AST 21 U/L (15-37); SGPT/ALT 10 U/L (12-78); TOT PROT 5.2 g/dl (6.4-8.2)
[2016-08-07 06:53] LABS: ALK PHOS 87 U/L (45-117)
[2016-08-07] MEDS ORDERED: POTASSIUM CHLORIDE ORAL LIQUID 20 MEQ/15 ML PO ONE (07:37)
--- NOTE | 2016-08-07 07:39 | PN ---
Progress Note (short form) - Note Progress Note: Renal follow up for Metabolic acidosis and Hypernatremia Pt seen and examined in the ICU no acute complaints continues to have good amt of diarrhea Vital Signs Temperature 96.6 F L 08/07/16 06:00 Pulse Rate 56 L 08/07/16 06:00 Respiratory Rate 18 08/07/16 06:00 Blood Pressure 87/60 08/07/16 06:00 O2 Sat by Pulse Oximetry (%) 97 08/06/16 22:00 Intake & Output 08/04/16 08/05/16 08/06/16 08/07/16 23:59 23:59 23:59 23:59 Intake Total 4092 2139 1772 394 Output Total 1100 503 900 Balance 2992 1636 872 394 Weight 147 lb 6.4 oz 155 lb 5 oz 159 lb 5 oz 160 lb 6.4 oz Gen: NAD CVS: RRR, No M/R Lungs :Dec Bs at lung bases but no rales, wheeze Abd: soft NT/ND Ext: UE edema Neuro: Awake and alert CBC, BMP 08/07/16 05:20 08/07/16 05:20 Laboratory Tests 08/07/16 05:20 Calcium 7.3 L Phosphorus 2.7 Magnesium 2.0 Albumin 1.4 L Current Medications Acetaminophen (Tylenol -) 650 mg PO Q4H PRN PRN Reason: FEVER OR PAIN Last Admin: 08/06/16 21:23 Dose: 650 mg Ascorbic Acid (Vitamin C -) 500 mg PO TID [facility] Last Admin: 08/07/16 05:50 Dose: 500 mg Aspirin (Asa -) 81 mg PO BID [facility] Last Admin: 08/06/16 22:00 Dose: 81 mg Collagenase (Santyl -) 1 applic TP DAILY [facility] Last Admin: 08/06/16 09:32 Dose: 1 applic Cyanocobalamin (Vitamin B12 -) 1,000 mcg PO DAILY [facility] Last Admin: 08/06/16 09:31 Dose: 1,000 mcg Enoxaparin Sodium (Lovenox -) 40 mg SQ DAILY [facility] Last Admin: 08/06/16 09:31 Dose: 40 mg Ferrous Sulfate (Feosol -) 325 mg PO TID [facility] Last Admin: 08/07/16 05:50 Dose: 325 mg Folic Acid (Folic Acid -) 1 mg PO DAILY [facility] Last Admin: 08/06/16 09:31 Dose: 1 mg Guaifenesin (Robitussin -) 10 ml PO Q8H PRN Last Admin: 07/29/16 22:00 Dose: 10 ml Metronidazole (Flagyl 500mg Premixed Ivpb -) 100 mls @ 100 mls/hr IVPB Q8H-IV [facility] Last Admin: 08/07/16 01:59 Dose: 100 mls/hr Ertapenem 1 gm/ Sodium (Chloride) 50 mls @ 100 mls/hr IVPB DAILY [facility] PRN Reason: Protocol Last Admin: 08/06/16 09:30 Dose: 100 mls/hr Sodium Bicarbonate 150 meq/ (Dextrose) 1,150 mls @ 42 mls/hr IV Q24H [facility] Last Admin: 08/06/16 10:30 Dose: Not Given Insulin Aspart (Novolog Vial Sliding Scale -) 1 vial SQ ACHS [facility] PRN Reason: Protocol Last Admin: 08/07/16 06:10 Dose: Not Given Levothyroxine Sodium (Synthroid -) 25 mcg PO DAILY@0700 [facility] Last Admin: 08/07/16 06:10 Dose: 25 mcg Multivitamins/Minerals/Vitamin C (Tab-A-Vit -) 1 tab PO DAILY [facility] Last Admin: 08/06/16 09:31 Dose: 1 tab Nystatin (Nystop Powder -) 1 applic TP DAILY [facility] Last Admin: 08/06/16 09:31 Dose: 1 applic Ondansetron HCl (Zofran Injection) 4 mg IVPB Q6H PRN PRN Reason: NAUSEA Potassium Chloride (Potassium Chloride Oral Liquid) 40 meq PO ONCE ONE Stop: 08/07/16 07:38 Potassium Phos/Sodium Phos (Phos-Nak Packet -) 1 packet PO TID [facility] Last Admin: 08/07/16 05:50 Dose: 1 packet Tamsulosin HCl (Flomax -) 0.4 mg PO DAILY@0830 [facility] Last Admin: 08/06/16 09:31 Dose: 0.4 mg Vancomycin HCl (Vancomycin Oral Solution) 125 mg PO Q6HPO [facility] Last Admin: 08/07/16 05:50 Dose: 125 mg A/P 80 year old Gentleman with PMhx of AAA, Hypertension, GERD, DM Type 2, Anemia, C. Diff colitis, Hyperlipidemia, CAD with Hx of SD presented with hypothermia and found to have Sepsis related to UTI and C. Diff Colitis with diarrhea with metabolic acidosis and hypernatremia. #Metabolic acidosis (NAG) continue bicarb gtt for now goal bicrab ~22 #Hypernatremia Free water intake as tolerated #Sepsis/Hypothermia/Cdiff continue Abx as per ICU/ID supportive Care #Hypophosphatemia Continue Neutraphos #Hypomagnesemia improved s/p IV supplementation yesterday #Anemia Transfuse as per ICU protocol #Hypokalemia Give KCL 40 meq Po x 1 Medardo Huerta DO
[2016-08-07] MEDS: TAMSULOSIN HCL 0.4 MG CAP.ER.24H (FP) PO SCH (08:50)
[2016-08-07] MEDS: ASPIRIN 81 MG CHEWABLE TABLETS PO SCH ×2 (09:05→22:21)
[2016-08-07] MEDS: MULTIVITAMINS (DAILY MVI) TABLET (FP) PO SCH (09:05)
[2016-08-07] MEDS: FOLIC ACID 1 MG TABLET (FP) PO SCH (09:05)
[2016-08-07] MEDS: ENOXAPARIN NA (PORCINE) 40 MG/0.4 ML DISP.SYRIN SQ SCH (09:06)
[2016-08-07] MEDS: ERTAPENEM SODIUM 1 GM in SODIUM CHLORIDE 50 ML IVPB SCH (09:07)
[2016-08-07] MEDS: COLLAGENASE CLOSTRIDIUM HIST. 30 GRAMS TUBE TP SCH (09:11)
[2016-08-07] MEDS: NYSTATIN POWDER 100,000 UNITS/GM - 15 GM TOPICAL POWDER TP SCH (09:12)
--- NOTE | 2016-08-07 09:55 | PN ---
Progress Note, Physician Chief Complaint: Mr Fu says he is feeling better. Still with significant diarrhea. Denies cp or sob. - Current Medication List Current Medications: Active Medications Acetaminophen (Tylenol -) 650 mg PO Q4H PRN PRN Reason: FEVER OR PAIN Last Admin: 08/06/16 21:23 Dose: 650 mg Ascorbic Acid (Vitamin C -) 500 mg PO TID [facility] Last Admin: 08/07/16 05:50 Dose: 500 mg Aspirin (Asa -) 81 mg PO BID [facility] Last Admin: 08/07/16 09:05 Dose: 81 mg Collagenase (Santyl -) 1 applic TP DAILY [facility] Last Admin: 08/07/16 09:11 Dose: 1 applic Cyanocobalamin (Vitamin B12 -) 1,000 mcg PO DAILY [facility] Last Admin: 08/06/16 09:31 Dose: 1,000 mcg Enoxaparin Sodium (Lovenox -) 40 mg SQ DAILY [facility] Last Admin: 08/07/16 09:06 Dose: 40 mg Ferrous Sulfate (Feosol -) 325 mg PO TID [facility] Last Admin: 08/07/16 05:50 Dose: 325 mg Folic Acid (Folic Acid -) 1 mg PO DAILY [facility] Last Admin: 08/07/16 09:05 Dose: 1 mg Guaifenesin (Robitussin -) 10 ml PO Q8H PRN Last Admin: 07/29/16 22:00 Dose: 10 ml Metronidazole (Flagyl 500mg Premixed Ivpb -) 100 mls @ 100 mls/hr IVPB Q8H-IV [facility] Last Admin: 08/07/16 09:08 Dose: 100 mls/hr Ertapenem 1 gm/ Sodium (Chloride) 50 mls @ 100 mls/hr IVPB DAILY [facility] PRN Reason: Protocol Last Admin: 08/07/16 09:07 Dose: 100 mls/hr Sodium Bicarbonate 150 meq/ (Dextrose) 1,150 mls @ 42 mls/hr IV Q24H [facility] Last Admin: 08/06/16 10:30 Dose: Not Given Insulin Aspart (Novolog Vial Sliding Scale -) 1 vial SQ ACHS [facility] PRN Reason: Protocol Last Admin: 08/07/16 06:10 Dose: Not Given Levothyroxine Sodium (Synthroid -) 25 mcg PO DAILY@0700 [facility] Last Admin: 08/07/16 06:10 Dose: 25 mcg Multivitamins/Minerals/Vitamin C (Tab-A-Vit -) 1 tab PO DAILY [facility] Last Admin: 08/07/16 09:05 Dose: 1 tab Nystatin (Nystop Powder -) 1 applic TP DAILY [facility] Last Admin: 08/07/16 09:12 Dose: 1 applic Ondansetron HCl (Zofran Injection) 4 mg IVPB Q6H PRN PRN Reason: NAUSEA Potassium Phos/Sodium Phos (Phos-Nak Packet -) 1 packet PO TID [facility] Last Admin: 08/07/16 05:50 Dose: 1 packet Tamsulosin HCl (Flomax -) 0.4 mg PO DAILY@0830 [facility] Last Admin: 08/07/16 08:50 Dose: 0.4 mg Vancomycin HCl (Vancomycin Oral Solution) 125 mg PO Q6HPO [facility] Last Admin: 08/07/16 05:50 Dose: 125 mg - Objective Vital Signs: Vital Signs Temperature 96.6 F L 08/07/16 06:00 Pulse Rate 56 L 08/07/16 06:00 Respiratory Rate 18 08/07/16 06:00 Blood Pressure 87/60 08/07/16 06:00 O2 Sat by Pulse Oximetry (%) 97 08/06/16 22:00 Constitutional: Yes: No Distress, Calm, Thin Cardiovascular: Yes: Regular Rate and Rhythm. No: Gallop, Murmur, Rub Respiratory: Yes: Regular, CTA Bilaterally. No: Rales, Rhonchi, Wheezes Gastrointestinal: Yes: Normal Bowel Sounds, Soft. No: Distention, Tenderness Extremities: Yes: WNL Edema: No Labs: CBC, BMP 08/07/16 05:20 08/07/16 05:20 INR, PTT INR 1.17 (0.82-1.09) H 07/26/16 19:07 Problem List - Problems (1) Septic shock Code(s): A41.9 - SEPSIS, UNSPECIFIED ORGANISM R65.21 - SEVERE SEPSIS WITH SEPTIC SHOCK (2) HCAP (healthcare-associated pneumonia) Code(s): J18.9 - PNEUMONIA, UNSPECIFIED ORGANISM (3) UTI (urinary tract infection) Code(s): N39.0 - URINARY TRACT INFECTION, SITE NOT SPECIFIED (4) C. difficile colitis Code(s): A04.7 - ENTEROCOLITIS DUE TO CLOSTRIDIUM DIFFICILE (5) Chest pain Code(s): R07.9 - CHEST PAIN, UNSPECIFIED (6) Anemia Code(s): D64.9 - ANEMIA, UNSPECIFIED Qualifiers: Anemia type: other cause Other causes of anemia: other cause, not classified Qualified Code(s): D64.89 - Other specified anemias (7) Chronic systolic CHF (congestive heart failure) Code(s): I50.22 - CHRONIC SYSTOLIC (CONGESTIVE) HEART FAILURE (8) CAD (coronary artery disease) Code(s): I25.10 - ATHSCL HEART DISEASE OF [place] CORONARY ARTERY W/O ANG PCTRS (9) Dehydration Code(s): E86.0 - DEHYDRATION (10) HTN (hypertension) Code(s): I10 - ESSENTIAL (PRIMARY) HYPERTENSION (11) Hypernatremia Code(s): E87.0 - HYPEROSMOLALITY AND HYPERNATREMIA (12) Hypomagnesemia Code(s): E83.42 - HYPOMAGNESEMIA (13) Hypokalemia Code(s): E87.6 - HYPOKALEMIA (14) Hypophosphatemia Code(s): E83.39 - OTHER DISORDERS OF PHOSPHORUS METABOLISM Assessment/Plan (1) Septic shock Assessment/Plan: -leukocytosis increased today -continue fluids -ID following Code(s): A41.9 - SEPSIS, UNSPECIFIED ORGANISM R65.21 - SEVERE SEPSIS WITH SEPTIC SHOCK (2) HCAP (healthcare-associated pneumonia) Assessment/Plan: -unsure if actually pneumonia -sepsis most likely secondary to UTI and c. diff colitis -ID following Code(s): J18.9 - PNEUMONIA, UNSPECIFIED ORGANISM (3) UTI (urinary tract infection) Assessment/Plan: -cultures growing ESBL e.coli and enterococcus -on ertapenem Code(s): N39.0 - URINARY TRACT INFECTION, SITE NOT SPECIFIED (4) C diff colitis Assessment/Plan: -continue oral vancomycin and flagyl Code(s): R19.7 - DIARRHEA, UNSPECIFIED Qualifiers: Diarrhea type: unspecified type Qualified Code(s): R19.7 - Diarrhea, unspecified (5) Chest pain Assessment/Plan: -appreciate cardiology assistance -chest pain resolved Code(s): R07.9 - CHEST PAIN, UNSPECIFIED (6) Anemia Assessment/Plan: -chronic and stable Code(s): D64.9 - ANEMIA, UNSPECIFIED Qualifiers: Anemia type: other cause Other causes of anemia: other cause, not classified Qualified Code(s): D64.89 - Other specified anemias (7) Chronic systolic CHF (congestive heart failure) Assessment/Plan: -not in exacerbation -continue hydration for sepsis Code(s): I50.22 - CHRONIC SYSTOLIC (CONGESTIVE) HEART FAILURE (8) CAD (coronary artery disease) -continue home regimen -cardiology following Code(s): I25.10 - ATHSCL HEART DISEASE OF [place] CORONARY ARTERY W/O ANG PCTRS (9) Dehydration Assessment/Plan: -continue hydration Code(s): E86.0 - DEHYDRATION (10) HTN (hypertension) Assessment/Plan: -hypotensive but asymptomatic -monitor, continue IVF Code(s): I10 - ESSENTIAL (PRIMARY) HYPERTENSION (11) Hypernatremia Assessment/Plan: -stable Code(s): E87.0 - HYPEROSMOLALITY AND HYPERNATREMIA (12) FEN -phosphorus replacement
--- NOTE | 2016-08-07 09:57 | PN ---
Progress Note (short form) - Note Progress Note: Seen and examined in the ICU BP stable Current Medications Acetaminophen (Tylenol -) 650 mg PO Q4H PRN PRN Reason: FEVER OR PAIN Last Admin: 08/06/16 21:23 Dose: 650 mg Ascorbic Acid (Vitamin C -) 500 mg PO TID [facility] Last Admin: 08/07/16 05:50 Dose: 500 mg Aspirin (Asa -) 81 mg PO BID [facility] Last Admin: 08/07/16 09:05 Dose: 81 mg Collagenase (Santyl -) 1 applic TP DAILY [facility] Last Admin: 08/07/16 09:11 Dose: 1 applic Cyanocobalamin (Vitamin B12 -) 1,000 mcg PO DAILY [facility] Last Admin: 08/06/16 09:31 Dose: 1,000 mcg Enoxaparin Sodium (Lovenox -) 40 mg SQ DAILY [facility] Last Admin: 08/07/16 09:06 Dose: 40 mg Ferrous Sulfate (Feosol -) 325 mg PO TID [facility] Last Admin: 08/07/16 05:50 Dose: 325 mg Folic Acid (Folic Acid -) 1 mg PO DAILY [facility] Last Admin: 08/07/16 09:05 Dose: 1 mg Guaifenesin (Robitussin -) 10 ml PO Q8H PRN Last Admin: 07/29/16 22:00 Dose: 10 ml Metronidazole (Flagyl 500mg Premixed Ivpb -) 100 mls @ 100 mls/hr IVPB Q8H-IV [facility] Last Admin: 08/07/16 09:08 Dose: 100 mls/hr Ertapenem 1 gm/ Sodium (Chloride) 50 mls @ 100 mls/hr IVPB DAILY [facility] PRN Reason: Protocol Last Admin: 08/07/16 09:07 Dose: 100 mls/hr Sodium Bicarbonate 150 meq/ (Dextrose) 1,150 mls @ 42 mls/hr IV Q24H [facility] Last Admin: 08/06/16 10:30 Dose: Not Given Insulin Aspart (Novolog Vial Sliding Scale -) 1 vial SQ ACHS [facility] PRN Reason: Protocol Last Admin: 08/07/16 06:10 Dose: Not Given Levothyroxine Sodium (Synthroid -) 25 mcg PO DAILY@0700 [facility] Last Admin: 08/07/16 06:10 Dose: 25 mcg Multivitamins/Minerals/Vitamin C (Tab-A-Vit -) 1 tab PO DAILY [facility] Last Admin: 08/07/16 09:05 Dose: 1 tab Nystatin (Nystop Powder -) 1 applic TP DAILY [facility] Last Admin: 08/07/16 09:12 Dose: 1 applic Ondansetron HCl (Zofran Injection) 4 mg IVPB Q6H PRN PRN Reason: NAUSEA Potassium Phos/Sodium Phos (Phos-Nak Packet -) 1 packet PO TID [facility] Last Admin: 08/07/16 05:50 Dose: 1 packet Tamsulosin HCl (Flomax -) 0.4 mg PO DAILY@0830 [facility] Last Admin: 08/07/16 08:50 Dose: 0.4 mg Vancomycin HCl (Vancomycin Oral Solution) 125 mg PO Q6HPO [facility] Last Admin: 08/07/16 05:50 Dose: 125 mg Vital Signs Period Temp Pulse Resp BP Sys/Martino Pulse Ox Last 24 Hr 96.6 F-97.2 F 40-69 14-20 76-114/46-72 97-98 Intake & Output 08/04/16 08/05/16 08/06/16 08/07/16 23:59 23:59 23:59 23:59 Intake Total 4092 2139 1772 394 Output Total 1100 503 900 Balance 2992 1636 872 394 Weight 66.86 kg 70.449 kg 72.263 kg 72.756 kg Exam: elderly man w/o distress CV: RRR, no m/r/g Pulm: diminished in bases Abd: SNTND Ext: +2 LE edema at ankles Neuro: awake, alert LAMB CBCD WBC 18.7 K/mm3 (4.0-10.0) H D 08/07/16 05:20 RBC 2.75 M/mm3 (4.00-5.60) L 08/07/16 05:20 Hgb 8.9 GM/dL (11.7-16.9) L 08/07/16 05:20 Hct 27.7 % (35.4-49) L 08/07/16 05:20 MCV 100.9 fl (80-96) H 08/07/16 05:20 MCHC 32.2 g/dl (32.0-35.9) 08/07/16 05:20 RDW 16.4 % (11.9-15.9) H 08/07/16 05:20 Plt Count 278 K/MM3 (134-434) 08/07/16 05:20 MPV 9.1 fl (7.5-11.1) 08/07/16 05:20 CMP Sodium 147 mmol/L (136-145) H 08/07/16 05:20 Potassium 3.4 mmol/L (3.5-5.1) L 08/07/16 05:20 Chloride 119 mmol/L (98-107) H 08/07/16 05:20 Carbon Dioxide 20 mmol/L (21-32) L 08/07/16 05:20 Anion Gap 8 (8-16) 08/07/16 05:20 BUN 9 mg/dL (7-18) D 08/07/16 05:20 Creatinine 0.6 mg/dL (0.7-1.3) L 08/07/16 05:20 Creat Clearance w eGFR > 60 (>60) 08/07/16 05:20 Random Glucose 91 mg/dL (74-106) D 08/07/16 05:20 Calcium 7.3 mg/dL (8.5-10.1) L 08/07/16 05:20 Total Bilirubin 0.2 mg/dL (0.2-1.0) 08/07/16 05:20 AST 21 U/L (15-37) 08/07/16 05:20 ALT 10 U/L (12-78) L 08/07/16 05:20 Alkaline Phosphatase 87 U/L (45-117) 08/07/16 05:20 Total Protein 5.2 g/dl (6.4-8.2) L 08/07/16 05:20 Albumin 1.4 g/dl (3.4-5.0) L 08/07/16 05:20 CARDIAC ENZYMES Creatine Kinase 27 IU/L (39-308) L 07/27/16 17:20 Troponin I < 0.02 ng/ml (0.00-0.05) 07/27/16 17:20 Microbiology 08/02/16 07:15 Blood - Peripheral Venous Blood Culture - Final NO GROWTH AFTER 5 DAYS INCUBATION 08/02/16 06:55 Blood - Peripheral Venous Blood Culture - Final NO GROWTH AFTER 5 DAYS INCUBATION 08/05/16 13:00 Urine - Urine - Catheterized Urine Culture - Final NO GROWTH OBTAINED 08/05/16 13:00 Urine For Antigen Detection Legionella Antigen - Final 08/05/16 13:00 Urine For Antigen Detection Streptococcus pneumoniae Antigen (M - Final 07/27/16 10:35 Blood - Peripheral Venous Blood Culture - Final NO GROWTH AFTER 5 DAYS INCUBATION 07/27/16 10:25 Blood - Peripheral Venous Blood Culture - Final NO GROWTH AFTER 5 DAYS INCUBATION 07/27/16 02:45 Urine - Urine - Catheterized Urine Culture - Final Escherichia Coli Esbl [employer] Enterococcus Faecium 07/27/16 17:15 Stool Clostridium difficile Antigen (VICTOR M) - Final 07/27/16 17:15 Stool Clostridium difficile Toxin Assay - Final ASSESSMENT AND PLAN: UTI C Diff Colitis Pneumonia vs Atelectasis Septic Shock CAD LV Systolic Dysfunction HTN Hypothyroidism - continue antibiotics per ID - Cont IVF for NAHMA r/t diarrhea - monitor urine output, creatinine - replete lytes - free water - continue synthroid - aspiration precautions - IS - DVT prophylaxis - stable for floor transfer Boerem ACNP Pulm/CCM CCT: 35m
[2016-08-07] MEDS: CYANOCOBALAMIN 1,000 MCG TABLET (FP) PO SCH (10:24)
[2016-08-07] MEDS ORDERED: SODIUM BICARBONATE 8.4% 50 MEQ/50 ML VIAL ONE ×2 (11:08→11:13)
[2016-08-07] MEDS: SODIUM BICARBONATE 8.4% - 150 MEQ in DEXTROSE 5%-WATER - 1,000 ML IV SCH (11:22)
--- NOTE | 2016-08-07 11:33 | PN ---
Progress Note, Physician History of Present Illness: stable still running low bp and heart rate still on bicarb drip - Current Medication List Current Medications: Active Medications Acetaminophen (Tylenol -) 650 mg PO Q4H PRN PRN Reason: FEVER OR PAIN Last Admin: 08/06/16 21:23 Dose: 650 mg Ascorbic Acid (Vitamin C -) 500 mg PO TID [facility] Last Admin: 08/07/16 05:50 Dose: 500 mg Aspirin (Asa -) 81 mg PO BID [facility] Last Admin: 08/07/16 09:05 Dose: 81 mg Collagenase (Santyl -) 1 applic TP DAILY [facility] Last Admin: 08/07/16 09:11 Dose: 1 applic Cyanocobalamin (Vitamin B12 -) 1,000 mcg PO DAILY [facility] Last Admin: 08/07/16 10:24 Dose: 1,000 mcg Enoxaparin Sodium (Lovenox -) 40 mg SQ DAILY [facility] Last Admin: 08/07/16 09:06 Dose: 40 mg Ferrous Sulfate (Feosol -) 325 mg PO TID [facility] Last Admin: 08/07/16 05:50 Dose: 325 mg Folic Acid (Folic Acid -) 1 mg PO DAILY [facility] Last Admin: 08/07/16 09:05 Dose: 1 mg Guaifenesin (Robitussin -) 10 ml PO Q8H PRN Last Admin: 07/29/16 22:00 Dose: 10 ml Metronidazole (Flagyl 500mg Premixed Ivpb -) 100 mls @ 100 mls/hr IVPB Q8H-IV [facility] Last Admin: 08/07/16 09:08 Dose: 100 mls/hr Ertapenem 1 gm/ Sodium (Chloride) 50 mls @ 100 mls/hr IVPB DAILY [facility] PRN Reason: Protocol Last Admin: 08/07/16 09:07 Dose: 100 mls/hr Sodium Bicarbonate 150 meq/ (Dextrose) 1,150 mls @ 42 mls/hr IV Q24H [facility] Last Admin: 08/07/16 11:22 Dose: 42 mls/hr Insulin Aspart (Novolog Vial Sliding Scale -) 1 vial SQ ACHS [facility] PRN Reason: Protocol Last Admin: 08/07/16 06:10 Dose: Not Given Levothyroxine Sodium (Synthroid -) 25 mcg PO DAILY@0700 [facility] Last Admin: 08/07/16 06:10 Dose: 25 mcg Multivitamins/Minerals/Vitamin C (Tab-A-Vit -) 1 tab PO DAILY [facility] Last Admin: 08/07/16 09:05 Dose: 1 tab Nystatin (Nystop Powder -) 1 applic TP DAILY [facility] Last Admin: 08/07/16 09:12 Dose: 1 applic Ondansetron HCl (Zofran Injection) 4 mg IVPB Q6H PRN PRN Reason: NAUSEA Potassium Phos/Sodium Phos (Phos-Nak Packet -) 1 packet PO TID [facility] Last Admin: 08/07/16 05:50 Dose: 1 packet Tamsulosin HCl (Flomax -) 0.4 mg PO DAILY@0830 [facility] Last Admin: 08/07/16 08:50 Dose: 0.4 mg Vancomycin HCl (Vancomycin Oral Solution) 125 mg PO Q6HPO [facility] Last Admin: 08/07/16 11:23 Dose: 125 mg - Objective Vital Signs: Vital Signs Temperature 96.6 F L 08/07/16 06:00 Pulse Rate 56 L 08/07/16 06:00 Respiratory Rate 18 08/07/16 06:00 Blood Pressure 87/60 08/07/16 06:00 O2 Sat by Pulse Oximetry (%) 97 08/06/16 22:00 Constitutional: Yes: No Distress, Calm Cardiovascular: Yes: Regular Rate and Rhythm, Bradycardia Respiratory: Yes: Regular, CTA Bilaterally Gastrointestinal: Yes: Normal Bowel Sounds, Soft Musculoskeletal: Yes: WNL Extremities: Yes: WNL Neurological: Yes: Alert Psychiatric: Yes: Alert Labs: CBC, BMP 08/07/16 05:20 08/07/16 05:20 INR, PTT INR 1.17 (0.82-1.09) H 07/26/16 19:07 Assessment/Plan Problem List - Problems (1) Septic shock Code(s): A41.9 - SEPSIS, UNSPECIFIED ORGANISM R65.21 - SEVERE SEPSIS WITH SEPTIC SHOCK (2) HCAP (healthcare-associated pneumonia) Code(s): J18.9 - PNEUMONIA, UNSPECIFIED ORGANISM (3) UTI (urinary tract infection) Code(s): N39.0 - URINARY TRACT INFECTION, SITE NOT SPECIFIED (4) Diarrhea Code(s): R19.7 - DIARRHEA, UNSPECIFIED Qualifiers: Diarrhea type: unspecified type Qualified Code(s): R19.7 - Diarrhea, unspecified (5) Chest pain Code(s): R07.9 - CHEST PAIN, UNSPECIFIED (6) Anemia Code(s): D64.9 - ANEMIA, UNSPECIFIED Qualifiers: Anemia type: other cause Other causes of anemia: other cause, not classified Qualified Code(s): D64.89 - Other specified anemias (7) Chronic systolic CHF (congestive heart failure) Code(s): I50.22 - CHRONIC SYSTOLIC (CONGESTIVE) HEART FAILURE (8) CAD (coronary artery disease) Code(s): I25.10 - ATHSCL HEART DISEASE OF [place] CORONARY ARTERY W/O ANG PCTRS (9) Dehydration Code(s): E86.0 - DEHYDRATION (10) HTN (hypertension) Code(s): I10 - ESSENTIAL (PRIMARY) HYPERTENSION (11) Hypernatremia Code(s): E87.0 - HYPEROSMOLALITY AND HYPERNATREMIA 12 hypothermia 13 cdiff plan conitnue current mgmt cx results noted ct abx for now will probably stop ertapenam tomorrow rest as per icu cardio0 note noted cc time 40 min
--- NOTE | 2016-08-07 12:07 | PN ---
Progress Note, Physician History of Present Illness: No events HR 40-50s - Current Medication List Current Medications: Active Medications Acetaminophen (Tylenol -) 650 mg PO Q4H PRN PRN Reason: FEVER OR PAIN Last Admin: 08/06/16 21:23 Dose: 650 mg Ascorbic Acid (Vitamin C -) [address] [facility] Last Admin: 08/07/16 05:50 Dose: 500 mg Aspirin (Asa -) [address] [facility] Last Admin: 08/07/16 09:05 Dose: 81 mg Collagenase (Santyl -) [address] [facility] Last Admin: 08/07/16 09:11 Dose: 1 applic Cyanocobalamin (Vitamin B12 -) 1,[address] [facility] Last Admin: 08/07/16 10:24 Dose: 1,000 mcg Enoxaparin Sodium (Lovenox -) [address] [facility] Last Admin: 08/07/16 09:06 Dose: 40 mg Ferrous Sulfate (Feosol -) [address] [facility] Last Admin: 08/07/16 05:50 Dose: 325 mg Folic Acid (Folic Acid -) [address] [facility] Last Admin: 08/07/16 09:05 Dose: 1 mg Guaifenesin (Robitussin -) 10 ml PO Q8H PRN Last Admin: 07/29/16 22:00 Dose: 10 ml Metronidazole (Flagyl 500mg Premixed Ivpb -) 100 mls @ 100 mls/hr IVPB Q8H-IV [facility] Last Admin: 08/07/16 09:08 Dose: 100 mls/hr Ertapenem 1 gm/ Sodium (Chloride) 50 mls @ 100 mls/hr IVPB DAILY [facility] PRN Reason: Protocol Last Admin: 08/07/16 09:07 Dose: 100 mls/hr Sodium Bicarbonate 150 meq/ (Dextrose) 1,150 mls @ 42 mls/hr IV Q24H [facility] Last Admin: 08/07/16 11:22 Dose: 42 mls/hr Insulin Aspart (Novolog Vial Sliding Scale -) [address] [facility] PRN Reason: Protocol Last Admin: 08/07/16 11:53 Dose: Not Given Levothyroxine Sodium (Synthroid -) 25 mcg PO DAILY@0700 [facility] Last Admin: 08/07/16 06:10 Dose: 25 mcg Multivitamins/Minerals/Vitamin C (Tab-A-Vit -) [address] [facility] Last Admin: 08/07/16 09:05 Dose: 1 tab Nystatin (Nystop Powder -) [address] [facility] Last Admin: 08/07/16 09:12 Dose: 1 applic Ondansetron HCl (Zofran Injection) 4 mg IVPB Q6H PRN PRN Reason: NAUSEA Potassium Phos/Sodium Phos (Phos-Nak Packet -) [address] [facility] Last Admin: 08/07/16 05:50 Dose: 1 packet Tamsulosin HCl (Flomax -) 0.4 mg PO DAILY@0830 [facility] Last Admin: 08/07/16 08:50 Dose: 0.4 mg Vancomycin HCl (Vancomycin Oral Solution) [address] [facility] Last Admin: 08/07/16 11:23 Dose: 125 mg - Objective Vital Signs: Vital Signs Temperature 96.6 F L 08/07/16 06:00 Pulse Rate 56 L 08/07/16 06:00 Respiratory Rate 18 08/07/16 06:00 Blood Pressure 87/60 08/07/16 06:00 O2 Sat by Pulse Oximetry (%) 97 08/06/16 22:00 Constitutional: Yes: No Distress Eyes: Yes: WNL Neck: Yes: WNL, Trachea Midline Cardiovascular: Yes: Regular Rate and Rhythm Respiratory: Yes: Regular Gastrointestinal: Yes: Normal Bowel Sounds Labs: CBC, BMP 08/07/16 05:20 08/07/16 05:20 INR, PTT INR 1.17 (0.82-1.09) H 07/26/16 19:07 Assessment/Plan a/p: 80 m hx htn, hld, dm, cad/NE (seen on prior mibi), syst chf, sent from [facility] for infection/sepsis. sepsis: -bp initially improved with ivfs, recently worsening hypotension with sx's of dizziness. Now improving with IVF. Aggressive IVF as needed. -cont abx per ID, mgm't per ICU - 08/06 IVF decreased b/c of concern for volume overload, hypernatremia worsened. Edema is focal and localized primarily to left arm (more consistent with superficial phlebitis than volume overload) and right ankle. Doppler u/s per pmd. Edema focal and not consistent with volume overload. Would con't liberal IVF. 08/07 no signs of volume overload. cad/mi: -prior mibi showing infarct, no ischemia -no signs acs, trop neg x2 - cp here seems MSK after a recent fall -cont home asa chronic systolic chf: -no signs vol overload -monitor vol status with ivfs, but no signs of volume overload at this time. see discussion above. Ok to give IVF liberally. -echo here showing nl lvef -not on bb due to bradycardia
[2016-08-07] MEDS: ACETAMINOPHEN 325 MG TABLET (FP) PO PRN (22:23)
[2016-08-08] MEDS: METRONIDAZOLE 500 MG PREMIXED 100 ML IVPB SCH ×3 (01:30→17:13)
[2016-08-08 06:04] LABS: BASOPHIL 0.4 % (0-2.0); EOSINOPHIL 0.6 % (0-4.5); MCH 32.8 pg (25.7-33.7); MCHC 32.6 g/dl (32.0-35.9); MEAN CELL VOLUME 100.7 fl (80-96); MEAN PLT VOLUME 9.1 fl (7.5-11.1); NEUTROPHILS 80.8 % (42.8-82.8); PLATELET COUNT 248 K/MM3 (134-434); RDW 16.3 % (11.9-15.9); WHITE BLOOD COUNT 11.9 K/mm3 (4.0-10.0)
[2016-08-08] MEDS: FERROUS SO4 325 MG TABLET (FP) PO SCH ×3 (06:25→21:45)
[2016-08-08] MEDS: NAPH,MB-DB/K PH,MBDB POWDER PACKET PO SCH ×3 (06:25→21:45)
[2016-08-08] MEDS: VANCOMYCIN 250 MG/5 ML ORAL SOLUTION PO SCH ×4 (06:25→17:13)
[2016-08-08] MEDS: LEVOTHYROXINE NA 25 MCG TABLET (FP) PO SCH (06:26)
[2016-08-08] MEDS: ASCORBIC ACID 500 MG TABLET (FP) PO SCH ×3 (06:26→21:46)
[2016-08-08 06:37] LABS: CALCIUM 7.2 mg/dL (8.5-10.1); COCKROFT - GAULT 119.23; CREATININE 0.5 mg/dL (0.7-1.3); MAGNESIUM 1.9 mg/dL (1.8-2.4); PHOSPHOROUS 1.8 mg/dL (2.5-4.9)
[2016-08-08] MEDS: INSULIN SLIDING SCALE (NOVOLOG) 1 VIAL SQ SCH ×4 (06:48→23:00)
[2016-08-08] MEDS ORDERED: DEXTROSE 5%-WATER - 1,000 ML with SODIUM BICARBONATE 8.4% - 75 MEQ IV SCH ×2 (07:00)
--- NOTE | 2016-08-08 07:31 | PN ---
Progress Note (short form) - Note Progress Note: Renal follow up for Metabolic acidosis and Hypernatremia Pt seen and examined in the ICU no overnight events no sob, chest discomfort Vital Signs Temperature 96.2 F L 08/08/16 06:00 Pulse Rate 48 L 08/08/16 06:00 Respiratory Rate 20 08/08/16 06:00 Blood Pressure 77/58 08/08/16 06:00 O2 Sat by Pulse Oximetry (%) 93 L 08/07/16 22:00 Intake & Output 08/05/16 08/06/16 08/07/16 08/08/16 23:59 23:59 23:59 23:59 Intake Total 2139 1772 2218 494 Output Total 503 900 300 Balance 3101 080 9370 494 Weight 155 lb 5 oz 159 lb 5 oz 160 lb 6.4 oz 161 lb 8 oz Gen: NAD CVS: RRR, No M/R Lungs :Dec Bs at lung bases but no rales, wheeze Abd: soft NT/ND Ext: UE edema Neuro: Awake and alert CBC, BMP 08/08/16 05:15 Current Medications Acetaminophen (Tylenol -) 650 mg PO Q4H PRN PRN Reason: FEVER OR PAIN Last Admin: 08/07/16 22:23 Dose: 650 mg Ascorbic Acid (Vitamin C -) 500 mg PO TID [facility] Last Admin: 08/08/16 06:26 Dose: 500 mg Aspirin (Asa -) 81 mg PO BID [facility] Last Admin: 08/07/16 22:21 Dose: 81 mg Collagenase (Santyl -) 1 applic TP DAILY [facility] Last Admin: 08/07/16 09:11 Dose: 1 applic Cyanocobalamin (Vitamin B12 -) 1,000 mcg PO DAILY [facility] Last Admin: 08/07/16 10:24 Dose: 1,000 mcg Enoxaparin Sodium (Lovenox -) 40 mg SQ DAILY [facility] Last Admin: 08/07/16 09:06 Dose: 40 mg Ferrous Sulfate (Feosol -) 325 mg PO TID [facility] Last Admin: 08/08/16 06:25 Dose: 325 mg Folic Acid (Folic Acid -) 1 mg PO DAILY [facility] Last Admin: 08/07/16 09:05 Dose: 1 mg Guaifenesin (Robitussin -) 10 ml PO Q8H PRN Last Admin: 07/29/16 22:00 Dose: 10 ml Metronidazole (Flagyl 500mg Premixed Ivpb -) 100 mls @ 100 mls/hr IVPB Q8H-IV [facility] Last Admin: 08/08/16 01:30 Dose: 100 mls/hr Ertapenem 1 gm/ Sodium (Chloride) 50 mls @ 100 mls/hr IVPB DAILY [facility] PRN Reason: Protocol Last Admin: 08/07/16 09:07 Dose: 100 mls/hr Sodium Bicarbonate 75 meq/ (Dextrose) 1,075 mls @ 75 mls/hr IV Q14H [facility] Insulin Aspart (Novolog Vial Sliding Scale -) 1 vial SQ ACHS [facility] PRN Reason: Protocol Last Admin: 08/08/16 06:48 Dose: Not Given Levothyroxine Sodium (Synthroid -) 25 mcg PO DAILY@0700 [facility] Last Admin: 08/08/16 06:26 Dose: 25 mcg Multivitamins/Minerals/Vitamin C (Tab-A-Vit -) 1 tab PO DAILY [facility] Last Admin: 08/07/16 09:05 Dose: 1 tab Nystatin (Nystop Powder -) 1 applic TP DAILY [facility] Last Admin: 08/07/16 09:12 Dose: 1 applic Ondansetron HCl (Zofran Injection) 4 mg IVPB Q6H PRN PRN Reason: NAUSEA Potassium Chloride (K-Dur -) 40 meq PO Q1H [facility] Stop: 08/08/16 08:31 Potassium Phos/Sodium Phos (Phos-Nak Packet -) 1 packet PO TID [facility] Last Admin: 08/08/16 06:25 Dose: 1 packet Tamsulosin HCl (Flomax -) 0.4 mg PO DAILY@0830 [facility] Last Admin: 08/07/16 08:50 Dose: 0.4 mg Vancomycin HCl (Vancomycin Oral Solution) 125 mg PO Q6HPO [facility] Last Admin: 08/08/16 06:25 Dose: 125 mg A/P 80 year old Gentleman with PMhx of AAA, Hypertension, GERD, DM Type 2, Anemia, C. Diff colitis, Hyperlipidemia, CAD with Hx of [place] presented with hypothermia and found to have Sepsis related to UTI and C. Diff Colitis with diarrhea with metabolic acidosis and hypernatremia. #Metabolic acidosis (NAG) secondary to GI losses change bicarb gtt to 75meq in d5w trend bicarb monitor diarrhea #Hypernatremia trend with hypotonic IVF #Sepsis/Hypothermia/Cdiff continue Abx as per ICU/ID supportive Care cortisol levels normal #Hypophosphatemia Continue Neutraphos #Hypomagnesemia improved s/p IV supplementation yesterday #Anemia Transfuse as per ICU protocol #Hypokalemia PO supplantation Medardo Huerta DO
[2016-08-08] MEDS ORDERED: PT OWN MED DRAWER 7, Y5N ONE (07:41)
[2016-08-08] MEDS: DEXTROSE 5%-WATER - 1,000 ML with SODIUM BICARBONATE 8.4% - 75 MEQ IV SCH (08:00)
[2016-08-08] MEDS: TAMSULOSIN HCL 0.4 MG CAP.ER.24H (FP) PO SCH (08:18)
[2016-08-08] MEDS ORDERED: SODIUM BICARBONATE 8.4% 50 MEQ/50 ML VIAL ONE (08:26)
[2016-08-08] MEDS ORDERED: POTASSIUM CHLORIDE ORAL LIQUID 20 MEQ/15 ML ONE (08:41)
[2016-08-08] MEDS: POTASSIUM CHLORIDE TABS 20 MEQ TABLET.ER (FP) PO SCH ×2 (08:42→11:46)
[2016-08-08] MEDS: ENOXAPARIN NA (PORCINE) 40 MG/0.4 ML DISP.SYRIN SQ SCH (09:01)
[2016-08-08] MEDS: ASPIRIN 81 MG CHEWABLE TABLETS PO SCH ×2 (09:02→21:45)
[2016-08-08] MEDS: MULTIVITAMINS (DAILY MVI) TABLET (FP) PO SCH (09:02)
[2016-08-08] MEDS: CYANOCOBALAMIN 1,000 MCG TABLET (FP) PO SCH (09:02)
[2016-08-08] MEDS: FOLIC ACID 1 MG TABLET (FP) PO SCH (09:02)
[2016-08-08] MEDS: ERTAPENEM SODIUM 1 GM in SODIUM CHLORIDE 50 ML IVPB SCH (09:14)
[2016-08-08] MEDS: NYSTATIN POWDER 100,000 UNITS/GM - 15 GM TOPICAL POWDER TP SCH (09:15)
[2016-08-08] MEDS: COLLAGENASE CLOSTRIDIUM HIST. 30 GRAMS TUBE TP SCH (09:15)
--- NOTE | 2016-08-08 09:57 | PN ---
Progress Note, Physician History of Present Illness: No CV events - Current Medication List Current Medications: Active Medications Acetaminophen (Tylenol -) 650 mg PO Q4H PRN PRN Reason: FEVER OR PAIN Last Admin: 08/07/16 22:23 Dose: 650 mg Ascorbic Acid (Vitamin C -) 500 mg PO TID [facility] Last Admin: 08/08/16 06:26 Dose: 500 mg Aspirin (Asa -) 81 mg PO BID [facility] Last Admin: 08/08/16 09:02 Dose: 81 mg Collagenase (Santyl -) 1 applic TP DAILY [facility] Last Admin: 08/08/16 09:15 Dose: 1 applic Cyanocobalamin (Vitamin B12 -) 1,000 mcg PO DAILY [facility] Last Admin: 08/08/16 09:02 Dose: 1,000 mcg Enoxaparin Sodium (Lovenox -) 40 mg SQ DAILY [facility] Last Admin: 08/08/16 09:01 Dose: 40 mg Ferrous Sulfate (Feosol -) 325 mg PO TID [facility] Last Admin: 08/08/16 06:25 Dose: 325 mg Folic Acid (Folic Acid -) 1 mg PO DAILY [facility] Last Admin: 08/08/16 09:02 Dose: 1 mg Guaifenesin (Robitussin -) 10 ml PO Q8H PRN Last Admin: 07/29/16 22:00 Dose: 10 ml Metronidazole (Flagyl 500mg Premixed Ivpb -) 100 mls @ 100 mls/hr IVPB Q8H-IV [facility] Last Admin: 08/08/16 09:01 Dose: 100 mls/hr Ertapenem 1 gm/ Sodium (Chloride) 50 mls @ 100 mls/hr IVPB DAILY [facility] PRN Reason: Protocol Last Admin: 08/08/16 09:14 Dose: 100 mls/hr Sodium Bicarbonate 75 meq/ (Dextrose) 1,075 mls @ 75 mls/hr IV Q14H [facility] Last Admin: 08/08/16 08:00 Dose: 75 mls/hr Insulin Aspart (Novolog Vial Sliding Scale -) 1 vial SQ ACHS [facility] PRN Reason: Protocol Last Admin: 08/08/16 06:48 Dose: Not Given Levothyroxine Sodium (Synthroid -) 25 mcg PO DAILY@0700 [facility] Last Admin: 08/08/16 06:26 Dose: 25 mcg Multivitamins/Minerals/Vitamin C (Tab-A-Vit -) 1 tab PO DAILY [facility] Last Admin: 08/08/16 09:02 Dose: 1 tab Nystatin (Nystop Powder -) 1 applic TP DAILY [facility] Last Admin: 08/08/16 09:15 Dose: 1 applic Ondansetron HCl (Zofran Injection) 4 mg IVPB Q6H PRN PRN Reason: NAUSEA Potassium Phos/Sodium Phos (Phos-Nak Packet -) 1 packet PO TID [facility] Last Admin: 08/08/16 06:25 Dose: 1 packet Tamsulosin HCl (Flomax -) 0.4 mg PO DAILY@0830 [facility] Last Admin: 08/08/16 08:18 Dose: 0.4 mg Vancomycin HCl (Vancomycin Oral Solution) 125 mg PO Q6HPO [facility] Last Admin: 08/08/16 06:25 Dose: 125 mg - Objective Vital Signs: Vital Signs Temperature 93 F L 08/08/16 09:00 Pulse Rate 46 L 08/08/16 09:00 Respiratory Rate 14 08/08/16 09:00 Blood Pressure 77/56 08/08/16 09:00 O2 Sat by Pulse Oximetry (%) 93 L 08/07/16 22:00 Constitutional: Yes: No Distress Eyes: Yes: WNL HENT: Yes: WNL Neck: Yes: WNL Cardiovascular: Yes: Regular Rate and Rhythm, Bradycardia Respiratory: Yes: CTA Bilaterally Edema: No Labs: CBC, BMP 08/08/16 05:15 08/08/16 05:15 INR, PTT INR 1.17 (0.82-1.09) H 07/26/16 19:07 Assessment/Plan a/p: 80 m hx htn, hld, dm, cad/NE (seen on prior mibi), syst chf, sent from [place] for infection/sepsis. sepsis: -bp initially improved with ivfs, recently worsening hypotension with sx's of dizziness. Now improving with IVF. Aggressive IVF as needed. -cont abx per ID, mgm't per ICU - 08/06 IVF decreased b/c of concern for volume overload, hypernatremia worsened. Edema is focal and localized primarily to left arm (more consistent with superficial phlebitis than volume overload) and right ankle. Doppler u/s per pmd. Edema focal and not consistent with volume overload. Would con't liberal IVF. 08/07 no signs of volume overload. / remains euvolemic cad/mi: -prior mibi showing infarct, no ischemia -no signs acs, trop neg x2 - cp here seems MSK after a recent fall -cont home asa chronic systolic chf: -no signs vol overload -monitor vol status with ivfs, but no signs of volume overload at this time. see discussion above. Ok to give IVF liberally. -echo here showing nl lvef -08/08 continue to hold bb due to bradycardia
--- NOTE | 2016-08-08 11:02 | PN ---
Progress Note, Physician Chief Complaint: Mr Fu is without complaint and says he feels "pretty good". Denies cp , sob, n/v. - Current Medication List Current Medications: Active Medications Acetaminophen (Tylenol -) 650 mg PO Q4H PRN PRN Reason: FEVER OR PAIN Last Admin: 08/07/16 22:23 Dose: 650 mg Ascorbic Acid (Vitamin C -) 500 mg PO TID [facility] Last Admin: 08/08/16 06:26 Dose: 500 mg Aspirin (Asa -) 81 mg PO BID [facility] Last Admin: 08/08/16 09:02 Dose: 81 mg Collagenase (Santyl -) 1 applic TP DAILY [facility] Last Admin: 08/08/16 09:15 Dose: 1 applic Cyanocobalamin (Vitamin B12 -) 1,000 mcg PO DAILY [facility] Last Admin: 08/08/16 09:02 Dose: 1,000 mcg Enoxaparin Sodium (Lovenox -) 40 mg SQ DAILY [facility] Last Admin: 08/08/16 09:01 Dose: 40 mg Ferrous Sulfate (Feosol -) 325 mg PO TID [facility] Last Admin: 08/08/16 06:25 Dose: 325 mg Folic Acid (Folic Acid -) 1 mg PO DAILY [facility] Last Admin: 08/08/16 09:02 Dose: 1 mg Guaifenesin (Robitussin -) 10 ml PO Q8H PRN Last Admin: 07/29/16 22:00 Dose: 10 ml Metronidazole (Flagyl 500mg Premixed Ivpb -) 100 mls @ 100 mls/hr IVPB Q8H-IV [facility] Last Admin: 08/08/16 09:01 Dose: 100 mls/hr Ertapenem 1 gm/ Sodium (Chloride) 50 mls @ 100 mls/hr IVPB DAILY [facility] PRN Reason: Protocol Last Admin: 08/08/16 09:14 Dose: 100 mls/hr Sodium Bicarbonate 75 meq/ (Dextrose) 1,075 mls @ 75 mls/hr IV Q14H [facility] Last Admin: 08/08/16 08:00 Dose: 75 mls/hr Insulin Aspart (Novolog Vial Sliding Scale -) 1 vial SQ ACHS [facility] PRN Reason: Protocol Last Admin: 08/08/16 06:48 Dose: Not Given Levothyroxine Sodium (Synthroid -) 25 mcg PO DAILY@0700 [facility] Last Admin: 08/08/16 06:26 Dose: 25 mcg Multivitamins/Minerals/Vitamin C (Tab-A-Vit -) 1 tab PO DAILY [facility] Last Admin: 08/08/16 09:02 Dose: 1 tab Nystatin (Nystop Powder -) 1 applic TP DAILY [facility] Last Admin: 08/08/16 09:15 Dose: 1 applic Ondansetron HCl (Zofran Injection) 4 mg IVPB Q6H PRN PRN Reason: NAUSEA Potassium Phos/Sodium Phos (Phos-Nak Packet -) 1 packet PO TID [facility] Last Admin: 08/08/16 06:25 Dose: 1 packet Tamsulosin HCl (Flomax -) 0.4 mg PO DAILY@0830 [facility] Last Admin: 08/08/16 08:18 Dose: 0.4 mg Vancomycin HCl (Vancomycin Oral Solution) 125 mg PO Q6HPO [facility] Last Admin: 08/08/16 06:25 Dose: 125 mg - Objective Vital Signs: Vital Signs Temperature 93 F L 08/08/16 09:00 Pulse Rate 45 L 08/08/16 10:34 Respiratory Rate 14 08/08/16 10:29 Blood Pressure 67/48 08/08/16 10:29 O2 Sat by Pulse Oximetry (%) 98 08/08/16 10:34 Constitutional: Yes: No Distress, Calm, Thin Cardiovascular: Yes: Regular Rate and Rhythm. No: Gallop, Murmur, Rub Respiratory: Yes: Regular, CTA Bilaterally. No: Rales, Rhonchi, Wheezes Gastrointestinal: Yes: Normal Bowel Sounds, Soft, Other (rectal tube in place with significant diarrhea). No: Distention, Tenderness Extremities: Yes: WNL Edema: No Labs: CBC, BMP 08/08/16 05:15 08/08/16 05:15 INR, PTT INR 1.17 (0.82-1.09) H 07/26/16 19:07 Problem List - Problems (1) Septic shock Code(s): A41.9 - SEPSIS, UNSPECIFIED ORGANISM R65.21 - SEVERE SEPSIS WITH SEPTIC SHOCK (2) HCAP (healthcare-associated pneumonia) Code(s): J18.9 - PNEUMONIA, UNSPECIFIED ORGANISM (3) UTI (urinary tract infection) Code(s): N39.0 - URINARY TRACT INFECTION, SITE NOT SPECIFIED (4) C. difficile colitis Code(s): A04.7 - ENTEROCOLITIS DUE TO CLOSTRIDIUM DIFFICILE (5) Chest pain Code(s): R07.9 - CHEST PAIN, UNSPECIFIED (6) Anemia Code(s): D64.9 - ANEMIA, UNSPECIFIED Qualifiers: Anemia type: other cause Other causes of anemia: other cause, not classified Qualified Code(s): D64.89 - Other specified anemias (7) Chronic systolic CHF (congestive heart failure) Code(s): I50.22 - CHRONIC SYSTOLIC (CONGESTIVE) HEART FAILURE (8) CAD (coronary artery disease) Code(s): I25.10 - ATHSCL HEART DISEASE OF [place] CORONARY ARTERY W/O ANG PCTRS (9) Dehydration Code(s): E86.0 - DEHYDRATION (10) HTN (hypertension) Code(s): I10 - ESSENTIAL (PRIMARY) HYPERTENSION (11) Hypernatremia Code(s): E87.0 - HYPEROSMOLALITY AND HYPERNATREMIA (12) Hypomagnesemia Code(s): E83.42 - HYPOMAGNESEMIA (13) Hypokalemia Code(s): E87.6 - HYPOKALEMIA (14) Hypophosphatemia Code(s): E83.39 - OTHER DISORDERS OF PHOSPHORUS METABOLISM Assessment/Plan (1) Septic shock Assessment/Plan: -leukocytosis improving -even though asymptomatic, with significant hypotension -significantly positive fluid balance and gaining weight so less likely from loss from diarrhea -continue hydration Code(s): A41.9 - SEPSIS, UNSPECIFIED ORGANISM R65.21 - SEVERE SEPSIS WITH SEPTIC SHOCK (2) HCAP (healthcare-associated pneumonia) Assessment/Plan: -unsure if actually pneumonia -sepsis most likely secondary to UTI and c. diff colitis -ID following Code(s): J18.9 - PNEUMONIA, UNSPECIFIED ORGANISM (3) UTI (urinary tract infection) Assessment/Plan: -cultures growing ESBL e.coli and enterococcus -on ertapenem Code(s): N39.0 - URINARY TRACT INFECTION, SITE NOT SPECIFIED (4) C diff colitis Assessment/Plan: -continue oral vancomycin and flagyl -still with significant diarrhea -leukocytosis improving, monitor for decrease of diarrhea Code(s): R19.7 - DIARRHEA, UNSPECIFIED Qualifiers: Diarrhea type: unspecified type Qualified Code(s): R19.7 - Diarrhea, unspecified (5) Chest pain Assessment/Plan: -appreciate cardiology assistance -chest pain resolved Code(s): R07.9 - CHEST PAIN, UNSPECIFIED (6) Anemia Assessment/Plan: -chronic and stable Code(s): D64.9 - ANEMIA, UNSPECIFIED Qualifiers: Anemia type: other cause Other causes of anemia: other cause, not classified Qualified Code(s): D64.89 - Other specified anemias (7) Chronic systolic CHF (congestive heart failure) Assessment/Plan: -not in exacerbation -continue hydration for sepsis Code(s): I50.22 - CHRONIC SYSTOLIC (CONGESTIVE) HEART FAILURE (8) CAD (coronary artery disease) -continue home regimen -cardiology following Code(s): I25.10 - ATHSCL HEART DISEASE OF [place] CORONARY ARTERY W/O ANG PCTRS (9) Dehydration Assessment/Plan: -continue hydration Code(s): E86.0 - DEHYDRATION (10) HTN (hypertension) Assessment/Plan: -hypotensive but asymptomatic -monitor, continue IVF Code(s): I10 - ESSENTIAL (PRIMARY) HYPERTENSION (11) Hypernatremia Assessment/Plan: -stable Code(s): E87.0 - HYPEROSMOLALITY AND HYPERNATREMIA (12) FEN -phosphorus replacement
--- NOTE | 2016-08-08 12:43 | PN ---
Progress Note (short form) - Note Progress Note: PULM / CCM -Seen and examined in the ICU -BP remains soft but stable & pt continues to mentate well. Active Medications Acetaminophen (Tylenol -) 650 mg PO Q4H PRN PRN Reason: FEVER OR PAIN Last Admin: 08/07/16 22:23 Dose: 650 mg Ascorbic Acid (Vitamin C -) 500 mg PO TID [facility] Last Admin: 08/08/16 06:26 Dose: 500 mg Aspirin (Asa -) 81 mg PO BID [facility] Last Admin: 08/08/16 09:02 Dose: 81 mg Collagenase (Santyl -) 1 applic TP DAILY [facility] Last Admin: 08/08/16 09:15 Dose: 1 applic Cyanocobalamin (Vitamin B12 -) 1,000 mcg PO DAILY [facility] Last Admin: 08/08/16 09:02 Dose: 1,000 mcg Enoxaparin Sodium (Lovenox -) 40 mg SQ DAILY [facility] Last Admin: 08/08/16 09:01 Dose: 40 mg Ferrous Sulfate (Feosol -) 325 mg PO TID [facility] Last Admin: 08/08/16 06:25 Dose: 325 mg Folic Acid (Folic Acid -) 1 mg PO DAILY [facility] Last Admin: 08/08/16 09:02 Dose: 1 mg Guaifenesin (Robitussin -) 10 ml PO Q8H PRN Last Admin: 07/29/16 22:00 Dose: 10 ml Metronidazole (Flagyl 500mg Premixed Ivpb -) 100 mls @ 100 mls/hr IVPB Q8H-IV [facility] Last Admin: 08/08/16 09:01 Dose: 100 mls/hr Sodium Bicarbonate 75 meq/ (Dextrose) 1,075 mls @ 75 mls/hr IV Q14H [facility] Last Admin: 08/08/16 08:00 Dose: 75 mls/hr Insulin Aspart (Novolog Vial Sliding Scale -) 1 vial SQ ACHS [facility] PRN Reason: Protocol Last Admin: 08/08/16 11:45 Dose: 2 units Levothyroxine Sodium (Synthroid -) 25 mcg PO DAILY@0700 [facility] Last Admin: 08/08/16 06:26 Dose: 25 mcg Multivitamins/Minerals/Vitamin C (Tab-A-Vit -) 1 tab PO DAILY [facility] Last Admin: 08/08/16 09:02 Dose: 1 tab Nystatin (Nystop Powder -) 1 applic TP DAILY [facility] Last Admin: 08/08/16 09:15 Dose: 1 applic Ondansetron HCl (Zofran Injection) 4 mg IVPB Q6H PRN PRN Reason: NAUSEA Potassium Phos/Sodium Phos (Phos-Nak Packet -) 1 packet PO TID [facility] Last Admin: 08/08/16 06:25 Dose: 1 packet Tamsulosin HCl (Flomax -) 0.4 mg PO DAILY@0830 [facility] Last Admin: 08/08/16 08:18 Dose: 0.4 mg Vancomycin HCl (Vancomycin Oral Solution) 125 mg PO Q6HPO [facility] Last Admin: 08/08/16 11:44 Dose: 125 mg Vital Signs Period Temp Pulse Resp BP Sys/Martino Pulse Ox Last 24 Hr 93 F-96.4 F 40-53 13-20 67-91/48-65 93-98 Intake & Output 08/05/16 08/06/16 08/07/16 08/08/16 23:59 23:59 23:59 23:59 Intake Total 2139 1772 2218 686 Output Total 503 900 300 Balance 5781 688 0847 686 Weight 70.449 kg 72.263 kg 72.756 kg 73.255 kg CBC, BMP 08/08/16 05:15 08/08/16 05:15 Microbiology 08/02/16 07:15 Blood - Peripheral Venous Blood Culture - Final NO GROWTH AFTER 5 DAYS INCUBATION 08/02/16 06:55 Blood - Peripheral Venous Blood Culture - Final NO GROWTH AFTER 5 DAYS INCUBATION 08/05/16 13:00 Urine - Urine - Catheterized Urine Culture - Final NO GROWTH OBTAINED 08/05/16 13:00 Urine For Antigen Detection Legionella Antigen - Final 08/05/16 13:00 Urine For Antigen Detection Streptococcus pneumoniae Antigen (M - Final 07/27/16 10:35 Blood - Peripheral Venous Blood Culture - Final NO GROWTH AFTER 5 DAYS INCUBATION 07/27/16 10:25 Blood - Peripheral Venous Blood Culture - Final NO GROWTH AFTER 5 DAYS INCUBATION 07/27/16 02:45 Urine - Urine - Catheterized Urine Culture - Final Escherichia Coli [employer] Associate Enterococcus Faecium 07/27/16 17:15 Stool Clostridium difficile Antigen (VICTOR M) - Final 07/27/16 17:15 Stool Clostridium difficile Toxin Assay - Final CXR: NONE ASSESS: -C-Diff -Hypothermia -Septic Shock -CAD -LV Systolic Dysfunction -HTN -Hypothyroidism -Pneumonia vs Atelectasis PLAN: - Fio2 prn for an SpO2 > 92% - NEBS - IS - CPT - PT - OOB --> Chair - OOB - aspiration precautions - PO Vanc - F/u Clxrs - D/c ertapenam - Cont HCO3 gtt for NAHMA r/t diarrhea - monitor urine output, creatinine - replete lytes - free water - continue synthroid - DVT prophylaxis - D/c to Med Surg Shahab Lamar, ACNP-BC 5102 Pulm/CCM CCT: 36m
--- NOTE | 2016-08-08 13:08 | PN ---
Progress Note, Physician History of Present Illness: stable still running low bp and heart rate still on bicarb drip patient now again hypothermic - Current Medication List Current Medications: Active Medications Acetaminophen (Tylenol -) 650 mg PO Q4H PRN PRN Reason: FEVER OR PAIN Last Admin: 08/07/16 22:23 Dose: 650 mg Ascorbic Acid (Vitamin C -) 500 mg PO TID [facility] Last Admin: 08/08/16 06:26 Dose: 500 mg Aspirin (Asa -) 81 mg PO BID [facility] Last Admin: 08/08/16 09:02 Dose: 81 mg Collagenase (Santyl -) 1 applic TP DAILY [facility] Last Admin: 08/08/16 09:15 Dose: 1 applic Cyanocobalamin (Vitamin B12 -) 1,000 mcg PO DAILY [facility] Last Admin: 08/08/16 09:02 Dose: 1,000 mcg Enoxaparin Sodium (Lovenox -) 40 mg SQ DAILY [facility] Last Admin: 08/08/16 09:01 Dose: 40 mg Ferrous Sulfate (Feosol -) 325 mg PO TID [facility] Last Admin: 08/08/16 06:25 Dose: 325 mg Folic Acid (Folic Acid -) 1 mg PO DAILY [facility] Last Admin: 08/08/16 09:02 Dose: 1 mg Guaifenesin (Robitussin -) 10 ml PO Q8H PRN Last Admin: 07/29/16 22:00 Dose: 10 ml Metronidazole (Flagyl 500mg Premixed Ivpb -) 100 mls @ 100 mls/hr IVPB Q8H-IV [facility] Last Admin: 08/08/16 09:01 Dose: 100 mls/hr Sodium Bicarbonate 75 meq/ (Dextrose) 1,075 mls @ 75 mls/hr IV Q14H [facility] Last Admin: 08/08/16 08:00 Dose: 75 mls/hr Insulin Aspart (Novolog Vial Sliding Scale -) 1 vial SQ ACHS [facility] PRN Reason: Protocol Last Admin: 08/08/16 11:45 Dose: 2 units Levothyroxine Sodium (Synthroid -) 25 mcg PO DAILY@0700 [facility] Last Admin: 08/08/16 06:26 Dose: 25 mcg Multivitamins/Minerals/Vitamin C (Tab-A-Vit -) 1 tab PO DAILY [facility] Last Admin: 08/08/16 09:02 Dose: 1 tab Nystatin (Nystop Powder -) 1 applic TP DAILY [facility] Last Admin: 08/08/16 09:15 Dose: 1 applic Ondansetron HCl (Zofran Injection) 4 mg IVPB Q6H PRN PRN Reason: NAUSEA Potassium Phos/Sodium Phos (Phos-Nak Packet -) 1 packet PO TID [facility] Last Admin: 08/08/16 06:25 Dose: 1 packet Tamsulosin HCl (Flomax -) 0.4 mg PO DAILY@0830 [facility] Last Admin: 08/08/16 08:18 Dose: 0.4 mg Vancomycin HCl (Vancomycin Oral Solution) 125 mg PO Q6HPO [facility] Last Admin: 08/08/16 11:44 Dose: 125 mg - Objective Vital Signs: Vital Signs Temperature 93 F L 08/08/16 09:00 Pulse Rate 45 L 08/08/16 10:34 Respiratory Rate 14 08/08/16 10:00 Blood Pressure 67/48 08/08/16 10:00 O2 Sat by Pulse Oximetry (%) 98 08/08/16 10:34 Constitutional: Yes: No Distress, Calm Cardiovascular: Yes: Bradycardia Respiratory: Yes: Regular, CTA Bilaterally Gastrointestinal: Yes: Normal Bowel Sounds, Soft, Other (rectal tube with dirrhoea) Musculoskeletal: Yes: Other Extremities: Yes: Other Edema: LUE: 1+, RUE: 1+, LLE: 1+, RLE: 1+ Neurological: Yes: Alert, Oriented Psychiatric: Yes: Alert Labs: CBC, BMP 08/08/16 05:15 08/08/16 05:15 INR, PTT INR 1.17 (0.82-1.09) H 07/26/16 19:07 Assessment/Plan Problem List - Problems (1) Septic shock Code(s): A41.9 - SEPSIS, UNSPECIFIED ORGANISM R65.21 - SEVERE SEPSIS WITH SEPTIC SHOCK (2) HCAP (healthcare-associated pneumonia) Code(s): J18.9 - PNEUMONIA, UNSPECIFIED ORGANISM (3) UTI (urinary tract infection) Code(s): N39.0 - URINARY TRACT INFECTION, SITE NOT SPECIFIED (4) Diarrhea Code(s): R19.7 - DIARRHEA, UNSPECIFIED Qualifiers: Diarrhea type: unspecified type Qualified Code(s): R19.7 - Diarrhea, unspecified (5) Chest pain Code(s): R07.9 - CHEST PAIN, UNSPECIFIED (6) Anemia Code(s): D64.9 - ANEMIA, UNSPECIFIED Qualifiers: Anemia type: other cause Other causes of anemia: other cause, not classified Qualified Code(s): D64.89 - Other specified anemias (7) Chronic systolic CHF (congestive heart failure) Code(s): I50.22 - CHRONIC SYSTOLIC (CONGESTIVE) HEART FAILURE (8) CAD (coronary artery disease) Code(s): I25.10 - ATHSCL HEART DISEASE OF [place] CORONARY ARTERY W/O ANG PCTRS (9) Dehydration Code(s): E86.0 - DEHYDRATION (10) HTN (hypertension) Code(s): I10 - ESSENTIAL (PRIMARY) HYPERTENSION (11) Hypernatremia Code(s): E87.0 - HYPEROSMOLALITY AND HYPERNATREMIA 12 hypothermia 13 cdiff plan conitnue current mgmt cx results noted stopped abx close watch on him now monitor temp heating blanket rest as per icu cc time 40 min
[2016-08-08] MEDS: ACETAMINOPHEN 325 MG TABLET (FP) PO PRN (21:46)
[2016-08-09] MEDS ORDERED: SODIUM BICARBONATE 8.4% 50 MEQ/50 ML VIAL ONE (01:21)
[2016-08-09] MEDS: DEXTROSE 5%-WATER - 1,000 ML with SODIUM BICARBONATE 8.4% - 75 MEQ IV SCH (01:44)
[2016-08-09] MEDS: METRONIDAZOLE 500 MG PREMIXED 100 ML IVPB SCH ×3 (01:45→18:26)
[2016-08-09] MEDS: ASCORBIC ACID 500 MG TABLET (FP) PO SCH ×3 (05:16→21:26)
[2016-08-09] MEDS: NAPH,MB-DB/K PH,MBDB POWDER PACKET PO SCH ×3 (05:16→21:27)
[2016-08-09] MEDS: FERROUS SO4 325 MG TABLET (FP) PO SCH ×3 (05:16→21:26)
[2016-08-09] MEDS: VANCOMYCIN 250 MG/5 ML ORAL SOLUTION PO SCH ×4 (05:16→18:27)
[2016-08-09] MEDS: INSULIN SLIDING SCALE (NOVOLOG) 1 VIAL SQ SCH ×4 (06:04→21:50)
[2016-08-09] MEDS: LEVOTHYROXINE NA 25 MCG TABLET (FP) PO SCH (06:05)
[2016-08-09 08:33] LABS: BASOPHIL 0.6 % (0-2.0); EOSINOPHIL 0.5 % (0-4.5); MCH 33.5 pg (25.7-33.7); MEAN CELL VOLUME 101.4 fl (80-96); MEAN PLT VOLUME 9.3 fl (7.5-11.1); NEUTROPHILS 76.7 % (42.8-82.8); PLATELET COUNT 205 K/MM3 (134-434); RDW 16.2 % (11.9-15.9); WHITE BLOOD COUNT 9.5 K/mm3 (4.0-10.0)
[2016-08-09 08:46] LABS: ALBUMIN 1.3 g/dl (3.4-5.0); ALK PHOS 84 U/L (45-117); ANION GAP 8 (8-16); BILIRUBIN,TOTAL 0.2 mg/dL (0.2-1.0); CALCIUM 7.2 mg/dL (8.5-10.1); CO2 25 mmol/L (21-32); COCKROFT - GAULT 101.47; CREATININE 0.6 mg/dL (0.7-1.3); GLUCOSE,RANDOM 105 mg/dL (74-106); MAGNESIUM 1.8 mg/dL (1.8-2.4); PHOSPHOROUS 1.9 mg/dL (2.5-4.9); SGOT/AST 22 U/L (15-37); SGPT/ALT 11 U/L (12-78); TOT PROT 4.6 g/dl (6.4-8.2)
[2016-08-09] MEDS ORDERED: PT OWN MED DRAWER 7, Y5N ONE (09:36)
[2016-08-09] MEDS: TAMSULOSIN HCL 0.4 MG CAP.ER.24H (FP) PO SCH (09:41)
[2016-08-09] MEDS: FOLIC ACID 1 MG TABLET (FP) PO SCH (09:41)
[2016-08-09] MEDS: ASPIRIN 81 MG CHEWABLE TABLETS PO SCH ×2 (09:41→21:26)
[2016-08-09] MEDS: ENOXAPARIN NA (PORCINE) 40 MG/0.4 ML DISP.SYRIN SQ SCH (09:42)
[2016-08-09] MEDS: NYSTATIN POWDER 100,000 UNITS/GM - 15 GM TOPICAL POWDER TP SCH (09:42)
[2016-08-09] MEDS: CYANOCOBALAMIN 1,000 MCG TABLET (FP) PO SCH (09:42)
[2016-08-09] MEDS: MULTIVITAMINS (DAILY MVI) TABLET (FP) PO SCH (09:43)
[2016-08-09] MEDS: COLLAGENASE CLOSTRIDIUM HIST. 30 GRAMS TUBE TP SCH (09:45)
--- NOTE | 2016-08-09 09:47 | PN ---
Progress Note, Physician Chief Complaint: resp failure History of Present Illness: slow verbal responses--denies cp, sob, dizzy, leg swelling - Current Medication List Current Medications: Active Medications Acetaminophen (Tylenol -) 650 mg PO Q4H PRN PRN Reason: FEVER OR PAIN Last Admin: 08/08/16 21:46 Dose: 650 mg Ascorbic Acid (Vitamin C -) 500 mg PO TID [facility] Last Admin: 08/09/16 05:16 Dose: 500 mg Aspirin (Asa -) 81 mg PO BID [facility] Last Admin: 08/09/16 09:41 Dose: 81 mg Collagenase (Santyl -) 1 applic TP DAILY [facility] Last Admin: 08/08/16 09:15 Dose: 1 applic Cyanocobalamin (Vitamin B12 -) 1,000 mcg PO DAILY [facility] Last Admin: 08/09/16 09:42 Dose: 1,000 mcg Enoxaparin Sodium (Lovenox -) 40 mg SQ DAILY [facility] Last Admin: 08/09/16 09:42 Dose: 40 mg Ferrous Sulfate (Feosol -) 325 mg PO TID [facility] Last Admin: 08/09/16 05:16 Dose: 325 mg Folic Acid (Folic Acid -) 1 mg PO DAILY [facility] Last Admin: 08/09/16 09:41 Dose: 1 mg Guaifenesin (Robitussin -) 10 ml PO Q8H PRN Last Admin: 07/29/16 22:00 Dose: 10 ml Metronidazole (Flagyl 500mg Premixed Ivpb -) 100 mls @ 100 mls/hr IVPB Q8H-IV [facility] Last Admin: 08/09/16 09:39 Dose: 100 mls/hr Sodium Bicarbonate 75 meq/ (Dextrose) 1,075 mls @ 75 mls/hr IV Q14H [facility] Last Admin: 08/09/16 01:44 Dose: 75 mls/hr Potassium Phosphate 30 mm/ (Dextrose) 260 mls @ 65 mls/hr IVPB ONCE ONE Stop: 08/09/16 13:59 Insulin Aspart (Novolog Vial Sliding Scale -) 1 vial SQ ACHS [facility] PRN Reason: Protocol Last Admin: 08/09/16 06:04 Dose: Not Given Levothyroxine Sodium (Synthroid -) 25 mcg PO DAILY@0700 [facility] Last Admin: 08/09/16 06:05 Dose: 25 mcg Multivitamins/Minerals/Vitamin C (Tab-A-Vit -) 1 tab PO DAILY [facility] Last Admin: 08/09/16 09:43 Dose: 1 tab Nystatin (Nystop Powder -) 1 applic TP DAILY [facility] Last Admin: 08/09/16 09:42 Dose: 1 applic Ondansetron HCl (Zofran Injection) 4 mg IVPB Q6H PRN PRN Reason: NAUSEA Potassium Phos/Sodium Phos (Phos-Nak Packet -) 1 packet PO TID [facility] Last Admin: 08/09/16 05:16 Dose: 1 packet Tamsulosin HCl (Flomax -) 0.4 mg PO DAILY@0830 [facility] Last Admin: 08/09/16 09:41 Dose: 0.4 mg Vancomycin HCl (Vancomycin Oral Solution) 125 mg PO Q6HPO [facility] Last Admin: 08/09/16 05:16 Dose: 125 mg - Objective Vital Signs: Vital Signs Temperature 94.3 F L 08/09/16 06:00 Pulse Rate 47 L 08/09/16 08:00 Respiratory Rate 17 08/09/16 08:00 Blood Pressure 77/50 08/09/16 08:00 O2 Sat by Pulse Oximetry (%) 95 08/08/16 22:00 Constitutional: Yes: Well Nourished, No Distress, Calm Cardiovascular: Yes: Regular Rate and Rhythm, S1, S2. No: JVD, Gallop, Murmur Respiratory: Yes: Regular, CTA Bilaterally. No: Accessory Muscle Use Extremities: No: Cold Edema: Yes (UE swelling L > R) Neurological: Yes: Alert. No: Seizure Psychiatric: No: Agitated Labs: CBC, BMP 08/09/16 08:00 08/09/16 08:00 INR, PTT INR 1.17 (0.82-1.09) H 07/26/16 19:07 - ....Imaging EKG: Other (tele: NSR, NSVT x 10b run) Assessment/Plan cxr: no chf mibi 10/2011: large inferolateral scar, no ischemia, lvef 35% echo 07/2016: tds/limited views: grossly nl lv size/fcn, mild mr a/p: 80 m hx htn, hld, dm, cad/CA (seen on prior mibi), syst chf, sent from ri for sepsis. sepsis: -cont abx per ID, mgm't per ICU htn: -septic, bp on low side, holding htn meds. poor po intake, on IVF cad/mi: -prior mibi showing infarct, no ischemia -no signs acs, trop neg x2 -cp here seems MSK after a recent fall -cont home asa -? not on statin per [place] med list--defer to outpt treatment and review or prior chart in [place] chronic systolic chf: -previously with mod reduced EF on nuclear 2011--? etiology at that time -echo here showing nl overall LVEF -no signs vol overload here -not on bb due to bradycardia bradycardia: -pt with known sinus tashia evaluated with holter on prior admit that showed no pathologic bradycardia -tele here with sr in 40s at times so have stopped bb, avoid meds that cause bradycardia VTach: -10 beat run NSVT on tele 08/09 -repleting K...Mag ok -EF preserved -holding BB due to bradycardia--no compelling indication for NSVT in setting of sepsis, with normal LV fxn 3rd spacing/UE edema/hypoalb -alb 1.3 -UE elevation as indicated prn
[2016-08-09] MEDS ORDERED: POTASSIUM PHOSPHATE 30 MM in DEXTROSE 5%-WATER - 250 ML IVPB ONE (10:00)
--- NOTE | 2016-08-09 10:28 | PN ---
Progress Note (short form) - Note Progress Note: Renal follow up for Metabolic acidosis and Hypernatremia Pt seen and examined in the ICU no overnight events BP remains low, but pt is awake and with good mentation no sob or chest pain, + cough this am on Bicarb gtt Vital Signs Temperature 94.3 F L 08/09/16 06:00 Pulse Rate 47 L 08/09/16 08:00 Respiratory Rate 17 08/09/16 08:00 Blood Pressure 77/50 08/09/16 08:00 O2 Sat by Pulse Oximetry (%) 95 08/08/16 22:00 Intake & Output 08/06/16 08/07/16 08/08/16 08/09/16 23:59 23:59 23:59 23:59 Intake Total 1772 2218 2551 725 Output Total 900 300 Balance 872 1918 2551 725 Weight 159 lb 5 oz 160 lb 6.4 oz 161 lb 8 oz 163 lb 12.8 oz Gen: NAD, on NC CVS: RRR Lungs :Dec Bs at lung bases but no rales, wheeze Abd: soft NT/ND Ext: UE edema, No LE edema Neuro: Awake and alert CBC, BMP 08/09/16 08:00 08/09/16 08:00 Laboratory Tests 08/09/16 08:00 Calcium 7.2 L Phosphorus 1.9 L Magnesium 1.8 Albumin 1.3 L Current Medications Acetaminophen (Tylenol -) 650 mg PO Q4H PRN PRN Reason: FEVER OR PAIN Last Admin: 08/08/16 21:46 Dose: 650 mg Ascorbic Acid (Vitamin C -) 500 mg PO TID [facility] Last Admin: 08/09/16 05:16 Dose: 500 mg Aspirin (Asa -) 81 mg PO BID [facility] Last Admin: 08/09/16 09:41 Dose: 81 mg Collagenase (Santyl -) 1 applic TP DAILY [facility] Last Admin: 08/09/16 09:45 Dose: 1 applic Cyanocobalamin (Vitamin B12 -) 1,000 mcg PO DAILY [facility] Last Admin: 08/09/16 09:42 Dose: 1,000 mcg Enoxaparin Sodium (Lovenox -) 40 mg SQ DAILY [facility] Last Admin: 08/09/16 09:42 Dose: 40 mg Ferrous Sulfate (Feosol -) 325 mg PO TID [facility] Last Admin: 08/09/16 05:16 Dose: 325 mg Folic Acid (Folic Acid -) 1 mg PO DAILY [facility] Last Admin: 08/09/16 09:41 Dose: 1 mg Guaifenesin (Robitussin -) 10 ml PO Q8H PRN Last Admin: 07/29/16 22:00 Dose: 10 ml Metronidazole (Flagyl 500mg Premixed Ivpb -) 100 mls @ 100 mls/hr IVPB Q8H-IV [facility] Last Admin: 08/09/16 09:39 Dose: 100 mls/hr Sodium Bicarbonate 75 meq/ (Dextrose) 1,075 mls @ 75 mls/hr IV Q14H [facility] Last Admin: 08/09/16 01:44 Dose: 75 mls/hr Potassium Phosphate 30 mm/ (Dextrose) 260 mls @ 65 mls/hr IVPB ONCE ONE Stop: 08/09/16 13:59 Insulin Aspart (Novolog Vial Sliding Scale -) 1 vial SQ ACHS [facility] PRN Reason: Protocol Last Admin: 08/09/16 06:04 Dose: Not Given Levothyroxine Sodium (Synthroid -) 25 mcg PO DAILY@0700 [facility] Last Admin: 08/09/16 06:05 Dose: 25 mcg Multivitamins/Minerals/Vitamin C (Tab-A-Vit -) 1 tab PO DAILY [facility] Last Admin: 08/09/16 09:43 Dose: 1 tab Nystatin (Nystop Powder -) 1 applic TP DAILY [facility] Last Admin: 08/09/16 09:42 Dose: 1 applic Ondansetron HCl (Zofran Injection) 4 mg IVPB Q6H PRN PRN Reason: NAUSEA Potassium Phos/Sodium Phos (Phos-Nak Packet -) 1 packet PO TID [facility] Last Admin: 08/09/16 05:16 Dose: 1 packet Tamsulosin HCl (Flomax -) 0.4 mg PO DAILY@0830 [facility] Last Admin: 08/09/16 09:41 Dose: 0.4 mg Vancomycin HCl (Vancomycin Oral Solution) 125 mg PO Q6HPO [facility] Last Admin: 08/09/16 05:16 Dose: 125 mg A/P 80 year old Gentleman with PMhx of AAA, Hypertension, GERD, DM Type 2, Anemia, C. Diff colitis, Hyperlipidemia, CAD with Hx of NC presented with hypothermia and found to have Sepsis related to UTI and C. Diff Colitis with diarrhea with metabolic acidosis and hypernatremia. #Metabolic acidosis (NAG) secondary to GI losses serum bicab is improved can d/c bicarb gtt Trend serum bicarbonate levels, may require PO bicarb if continues to have large volume of diarrhea #Hypernatremia water deficit is ~2.6L with ongoing diarrhea oral water intake as tolerated may need D5W if pt does not have pulmonary congestion #Sepsis/Hypothermia/Cdiff continue Abx as per ICU/ID supportive Care cortisol levels normal #Hypophosphatemia Continue Neutraphos Give IV K-Phos today #Hypomagnesemia improved s/p IV supplementation yesterday #Anemia Transfuse as per ICU protocol #Hypokalemia IV K-phos today Medardo Huerta DO
--- NOTE | 2016-08-09 12:06 | PN ---
Teaching Attending Note Name of Resident: Madina Saldana ATTENDING PHYSICIAN STATEMENT I saw and evaluated the patient. I reviewed the resident's note and discussed the case with the resident. I agree with the resident's findings and plan as documented. SUBJECTIVE: Patient seen and examined in the ICU. Awake and alert. Blood pressure remains marginal but he is asymptomatic. No CP, SOB, dizziness, etc. No fevers recorded. Still with some diarrhea. OBJECTIVE: Intake & Output 08/06/16 08/07/16 08/08/16 08/09/16 23:59 23:59 23:59 23:59 Intake Total 1772 2218 2551 725 Output Total 900 300 Balance 872 1918 2551 725 Weight 159 lb 5 oz 160 lb 6.4 oz 161 lb 8 oz 163 lb 12.8 oz Last Vital Signs Temp Pulse Resp BP Pulse Ox 94.3 F L 55 L 16 84/42 97 08/09/16 06:00 08/09/16 11:59 08/09/16 10:00 08/09/16 10:00 08/09/16 11:59 Active Medications Acetaminophen (Tylenol -) 650 mg PO Q4H PRN PRN Reason: FEVER OR PAIN Last Admin: 08/08/16 21:46 Dose: 650 mg Ascorbic Acid (Vitamin C -) 500 mg PO TID [facility] Last Admin: 08/09/16 05:16 Dose: 500 mg Aspirin (Asa -) 81 mg PO BID [facility] Last Admin: 08/09/16 09:41 Dose: 81 mg Collagenase (Santyl -) 1 applic TP DAILY [facility] Last Admin: 08/09/16 09:45 Dose: 1 applic Cyanocobalamin (Vitamin B12 -) 1,000 mcg PO DAILY [facility] Last Admin: 08/09/16 09:42 Dose: 1,000 mcg Enoxaparin Sodium (Lovenox -) 40 mg SQ DAILY [facility] Last Admin: 08/09/16 09:42 Dose: 40 mg Ferrous Sulfate (Feosol -) 325 mg PO TID [facility] Last Admin: 08/09/16 05:16 Dose: 325 mg Folic Acid (Folic Acid -) 1 mg PO DAILY [facility] Last Admin: 08/09/16 09:41 Dose: 1 mg Guaifenesin (Robitussin -) 10 ml PO Q8H PRN Last Admin: 07/29/16 22:00 Dose: 10 ml Metronidazole (Flagyl 500mg Premixed Ivpb -) 100 mls @ 100 mls/hr IVPB Q8H-IV [facility] Last Admin: 08/09/16 09:39 Dose: 100 mls/hr Potassium Phosphate 30 mm/ (Dextrose) 260 mls @ 65 mls/hr IVPB ONCE ONE Stop: 08/09/16 13:59 Last Admin: 08/09/16 11:19 Dose: 65 mls/hr Insulin Aspart (Novolog Vial Sliding Scale -) 1 vial SQ ACHS [facility] PRN Reason: Protocol Last Admin: 08/09/16 06:04 Dose: Not Given Levothyroxine Sodium (Synthroid -) 25 mcg PO DAILY@0700 [facility] Last Admin: 08/09/16 06:05 Dose: 25 mcg Multivitamins/Minerals/Vitamin C (Tab-A-Vit -) 1 tab PO DAILY [facility] Last Admin: 08/09/16 09:43 Dose: 1 tab Nystatin (Nystop Powder -) 1 applic TP DAILY [facility] Last Admin: 08/09/16 09:42 Dose: 1 applic Ondansetron HCl (Zofran Injection) 4 mg IVPB Q6H PRN PRN Reason: NAUSEA Potassium Phos/Sodium Phos (Phos-Nak Packet -) 1 packet PO TID [facility] Last Admin: 08/09/16 05:16 Dose: 1 packet Tamsulosin HCl (Flomax -) 0.4 mg PO DAILY@0830 [facility] Last Admin: 08/09/16 09:41 Dose: 0.4 mg Vancomycin HCl (Vancomycin Oral Solution) 125 mg PO Q6HPO [facility] Last Admin: 08/09/16 11:20 Dose: 125 mg Gen: alert, awake Heart: RRR Lung: bilateral rhonchi Abd: soft, nontender Ext: + edema Laboratory Results - last 24 hr 08/08/16 08/08/16 08/09/16 10:56 17:07 05:58 WBC RBC Hgb Hct MCV MCHC RDW Plt Count MPV Neutrophils % Lymphocytes % Monocytes % Eosinophils % Basophils % Sodium Potassium Chloride Carbon Dioxide Anion Gap BUN Creatinine Creat Clearance w eGFR POC Glucometer 169.01204 102.10838 142.91609 Random Glucose Calcium Phosphorus Magnesium Total Bilirubin AST ALT Alkaline Phosphatase Total Protein Albumin 08/09/16 08/09/16 08:00 08:00 WBC 9.5 RBC 2.45 L Hgb 8.2 L Hct 24.9 L MCV 101.4 H MCHC 33.0 RDW 16.2 H Plt Count 205 MPV 9.3 Neutrophils % 76.7 Lymphocytes % 17.6 D Monocytes % 4.6 Eosinophils % 0.5 Basophils % 0.6 Sodium 149 H Potassium 3.2 L Chloride 116 H Carbon Dioxide 25 Anion Gap 8 BUN 8 Creatinine 0.6 L Creat Clearance w eGFR > 60 POC Glucometer Random Glucose 105 Calcium 7.2 L Phosphorus 1.9 L Magnesium 1.8 Total Bilirubin 0.2 AST 22 ALT 11 L Alkaline Phosphatase 84 Total Protein 4.6 L Albumin 1.3 L ASSESSMENT AND PLAN: UTI C Diff Colitis Pneumonia vs Atelectasis Septic Shock CAD LV Systolic Dysfunction HTN Hypothyroidism - ABX per ID - Endocrine evaluation - monitor urine output, creatinine - replete lytes - free water - continue synthroid - aspiration precautions - attempt incentive spirometry - DVT prophylaxis - 4W/4S if remains stable Dr Salguero Critical care time spent in reviewing chart, evaluating patient and formulating plan 35 min
[2016-08-09] MEDS ORDERED: HEMOQUE CONTROL SOLUTION ONE (12:20)
--- NOTE | 2016-08-09 13:52 | PN ---
Physical Exam: SUBJECTIVE: Patient seen and examined. He is feeling good today. He denies abdominal pain, diarrhea, dizziness, weakness, chest pain, SOB. OBJECTIVE: Vital Signs Period Temp Pulse Resp BP Sys/Martino Pulse Ox Last 24 Hr 93.8 F-97.6 F 44-69 15-24 77-100/42-71 95-98 GENERAL: The patient is awake, alert, and fully oriented, in no acute distress. HEAD: Normal with no signs of trauma. EYES: extraocular movements intact, sclera anicteric, conjunctiva clear. ENT: oropharynx clear without exudates, moist mucous membranes. NECK: Trachea midline, supple. LUNGS: Breath sounds equal, diminished breath sounds bilaterally, no wheezes, no crackles, no accessory muscle use. HEART: Regular rate and rhythm, S1, S2 without murmur, rub or gallop. ABDOMEN: Soft, nontender, nondistended, normoactive bowel sounds, no guarding, no rebound, no hepatosplenomegaly, no masses. EXTREMITIES: warm, 1+ edema in hands and feet b/l, amputated left toe, no erythema. NEUROLOGICAL: Normal speech, gait not observed. PSYCH: Normal mood, normal affect. SKIN: Warm, dry, normal turgor, venous stasis changes in lower extremities B/L. Laboratory Results - last 24 hr 08/08/16 08/08/16 08/09/16 10:56 17:07 05:58 WBC RBC Hgb Hct MCV MCHC RDW Plt Count MPV Neutrophils % Lymphocytes % Monocytes % Eosinophils % Basophils % Sodium Potassium Chloride Carbon Dioxide Anion Gap BUN Creatinine Creat Clearance w eGFR POC Glucometer 169.76189 102.82729 142.06306 Random Glucose Calcium Phosphorus Magnesium Total Bilirubin AST ALT Alkaline Phosphatase Total Protein Albumin 08/09/16 08/09/16 08/09/16 08:00 08:00 12:00 WBC 9.5 RBC 2.45 L Hgb 8.2 L Hct 24.9 L MCV 101.4 H MCHC 33.0 RDW 16.2 H Plt Count 205 MPV 9.3 Neutrophils % 76.7 Lymphocytes % 17.6 D Monocytes % 4.6 Eosinophils % 0.5 Basophils % 0.6 Sodium 149 H Potassium 3.2 L Chloride 116 H Carbon Dioxide 25 Anion Gap 8 BUN 8 Creatinine 0.6 L Creat Clearance w eGFR > 60 POC Glucometer 164.45215 Random Glucose 105 Calcium 7.2 L Phosphorus 1.9 L Magnesium 1.8 Total Bilirubin 0.2 AST 22 ALT 11 L Alkaline Phosphatase 84 Total Protein 4.6 L Albumin 1.3 L Active Medications Generic Name Dose Route Start Last Admin Trade Name Tianq PRN Reason Stop Dose Admin Acetaminophen 650 mg 07/27/16 19:04 08/08/16 21:46 Tylenol - PO 650 mg Q4H PRN Administration FEVER OR PAIN Ascorbic Acid 500 mg 07/27/16 22:00 08/09/16 05:16 Vitamin C - PO 500 mg TID [facility] Administration Aspirin 81 mg 07/27/16 22:00 08/09/16 09:41 Asa - PO 81 mg BID [facility] Administration Collagenase 1 applic 08/05/16 12:30 08/09/16 09:45 Santyl - TP 1 applic DAILY [facility] Administration Cyanocobalamin 1,000 mcg 07/28/16 10:00 08/09/16 09:42 Vitamin B12 - PO 1,000 mcg DAILY [facility] Administration Enoxaparin Sodium 40 mg 07/28/16 10:00 08/09/16 09:42 Lovenox - SQ 40 mg DAILY [facility] Administration Ferrous Sulfate 325 mg 07/27/16 22:00 08/09/16 05:16 Feosol - PO 325 mg TID [facility] Administration Folic Acid 1 mg 07/28/16 10:00 08/09/16 09:41 Folic Acid - PO 1 mg DAILY [facility] Administration Guaifenesin 10 ml 07/29/16 21:53 07/29/16 22:00 Robitussin - PO 10 ml Q8H PRN Administration Metronidazole 100 mls @ 100 mls/hr 08/02/16 18:00 08/09/16 09:39 Flagyl 500mg Premixed Ivpb - IVPB 100 mls/hr Q8H-IV [facility] Administration Potassium Phosphate 30 mm/ 260 mls @ 65 mls/hr 08/09/16 10:00 08/09/16 11:19 Dextrose IVPB 08/09/16 13:59 65 mls/hr ONCE ONE Administration Insulin Aspart 1 vial 07/27/16 22:00 08/09/16 06:04 Novolog Vial Sliding Scale - SQ Not Given ACHS [facility] Protocol Levothyroxine Sodium 25 mcg 08/04/16 11:15 08/09/16 06:05 Synthroid - PO 25 mcg DAILY@0700 [facility] Administration Multivitamins/Minerals/Vitamin C 1 tab 07/28/16 10:00 08/09/16 09:43 Tab-A-Vit - PO 1 tab DAILY [facility] Administration Nystatin 1 applic 08/05/16 12:30 08/09/16 09:42 Nystop Powder - TP 1 applic DAILY [facility] Administration Ondansetron HCl 4 mg 07/27/16 19:04 Zofran Injection IVPB Q6H PRN NAUSEA Potassium Phos/Sodium Phos 1 packet 07/27/16 22:00 08/09/16 05:16 Phos-Nak Packet - PO 1 packet TID [facility] Administration Tamsulosin HCl 0.4 mg 07/28/16 08:30 08/09/16 09:41 Flomax - PO 0.4 mg DAILY@0830 [facility] Administration Vancomycin HCl 125 mg 08/02/16 18:00 08/09/16 11:20 Vancomycin Oral Solution PO 125 mg Q6HPO [facility] Administration ASSESSMENT/PLAN: 80 year old male with a PMH of AAA, HTN, DM type 2, hypothyroidism, anemia, h/o of C.Diff in March 2016, CAD who was brought to the hospital from [facility] for hypothermia. He originally was admitted to the floor but was found to be hypothermic and transferred to the ICU. Hypothermia: -the pt had temp 93 recorded -hypothermic again, 93.8 recorded in the past 24 hrs Septic shock due to UTI: -hypothermia, hypotension, and leukocytosis -f/u Endocrinology recommendations, will start Hydrocortisone to increase BP -bicarbonate is stopped today, will continue D5W -continue Flagyl, Ertapenem was stopped, Ucx no growth Combined Anion gap and non-anion gap metabolic acidosis with resp compensation -etology not known -D5w -serum Bicarb normalized -if CO2 less then 15 repeat abg Hypernatremia: -continue D5W -monitor Hypothyroidism: -elevated TSH 6.16 and free T3 low, free T4 normal -started Synthroid 25 mcq -[employer] consultation ordered possible HCAP -patient with chest pain and productive cough -f/u CXR daily -ID consulted Diarrhea -secondary to c. diff -continue Flagyl Chest pain -no ACS -f/u cardiology recommendation Hypokalemia: -repleated -will monitor Hypomagnesemia: -repleated Anemia -chronic -continue iron -monitor tomorrow Chronic systolic CHF (congestive heart failure) -not in exacerbation -f/u cardiology recommendation HTN -currently hypotensive -holding toprol xl Disposition: can be transferred to telemetry Problem List - Problems (1) Anemia Code(s): D64.9 - ANEMIA, UNSPECIFIED Qualifiers: Anemia type: other cause Other causes of anemia: other cause, not classified Qualified Code(s): D64.89 - Other specified anemias (2) Chest pain Code(s): R07.9 - CHEST PAIN, UNSPECIFIED (3) Chronic systolic CHF (congestive heart failure) Code(s): I50.22 - CHRONIC SYSTOLIC (CONGESTIVE) HEART FAILURE (4) HCAP (healthcare-associated pneumonia) Code(s): J18.9 - PNEUMONIA, UNSPECIFIED ORGANISM (5) Hypernatremia Code(s): E87.0 - HYPEROSMOLALITY AND HYPERNATREMIA (6) Hypoxia Code(s): R09.02 - HYPOXEMIA (7) Pneumonia Code(s): J18.9 - PNEUMONIA, UNSPECIFIED ORGANISM Qualifiers: Pneumonia type: due to unspecified organism Laterality: right Lung location: lower lobe of lung Qualified Code(s): J18.1 - Lobar pneumonia, unspecified organism (8) Septic shock Code(s): A41.9 - SEPSIS, UNSPECIFIED ORGANISM R65.21 - SEVERE SEPSIS WITH SEPTIC SHOCK (9) UTI (urinary tract infection) Code(s): N39.0 - URINARY TRACT INFECTION, SITE NOT SPECIFIED (10) Bradycardia Code(s): R00.1 - BRADYCARDIA, UNSPECIFIED (11) CAD (coronary artery disease) Code(s): I25.10 - ATHSCL HEART DISEASE OF [place] CORONARY ARTERY W/O ANG PCTRS (12) Dehydration Code(s): E86.0 - DEHYDRATION (13) Diabetes mellitus type 2 in nonobese Code(s): E11.9 - TYPE 2 DIABETES MELLITUS WITHOUT COMPLICATIONS (14) Diarrhea Code(s): R19.7 - DIARRHEA, UNSPECIFIED Qualifiers: Diarrhea type: infectious Qualified Code(s): A09 - Infectious gastroenteritis and colitis, unspecified (15) HLD (hyperlipidemia) Code(s): E78.5 - HYPERLIPIDEMIA, UNSPECIFIED (16) HTN (hypertension) Code(s): I10 - ESSENTIAL (PRIMARY) HYPERTENSION Visit type - Emergency Visit Emergency Visit: Yes ED Registration Date: 07/26/16 Care time: The patient presented to the Emergency Department on the above date and was hospitalized for further evaluation of their emergent condition. - New Patient This patient is new to me today: No - Critical Care Critical Care patient: Yes Total Critical Care Time (in minutes): 45 Critical Care Statement: The care of this patient involved high complexity decision making to prevent further life threatening deterioration of the patient 's condition and/or to evalute & treat vital organ system(s) failure or risk of failure.
--- NOTE | 2016-08-09 15:26 | CONSULT ---
Consult Consult Specialty:: Endocrinology Referred by:: Dr Saldana Reason for Consultation:: Hypothyroidism, - History of Present Illness Chief Complaint: Tiredness, diarrhoea History of Present Illness: This is an 80 year old male with HTN, GERD, DM type II, , anemia, c. diff, HLD , CAD, and TN who has been sent to the ED from [place] b/o Hypothermia, and to r/ C difficile b/o multiple episodes of diarrhoea. During hospitalization pt treated for UTI, sepsis. Pt continued to be hypotensive and bradycardic. TSH found to be in the 6 and started on LT4 replacement. Pt has also been hypothermic intermittently. Pt referred for endocrine evaluation. Pt currently c/o feeling tired and continues to have diarrhoes - History Source History Provided By: Patient, Medical Record, Transfer Record - Past Medical History Cardio/Vascular: Yes: CAD, CHF, HTN, Hyperlipdemia, TN Endocrine: Yes: Diabetes Mellitus - Past Surgical History Past Surgical History: Yes: Hernia Repair - Alcohol/Substance Use Hx Alcohol Use: No History of Substance Use: reports: None - Smoking History Smoking history: Unknown if ever smoked Have you smoked in the past 12 months: No Aproximately how many cigarettes per day: 0 If you are a former smoker, when did you quit?: many yrs ago - Social History Usual Living Arrangement: [facility]dc ADL: Support Services History of Recent Travel: No Home Medications - Allergies Allergies/Adverse Reactions: Allergies Allergy/AdvReac Type Severity Reaction Status Date / Time chlorpromazine HCl Allergy Verified 07/27/16 00:12 [From Thorazine] lactose AdvReac Verified 07/30/16 21:52 - Home Medications Home Medications: Ambulatory Orders Aa/Hydrolyzed Collagen, Whey [Lps Neutral Flavor Liquid] 15 grams PO BID Acetaminophen [Tylenol] 325 mg PO Q6H PRN 04/02/16 Ascorbate Calcium [Vitamin C] 500 mg PO TID 04/02/16 Aspirin [ASA -] 81 mg PO BID 04/02/16 Cyanocobalamin (Vitamin B-12) [B-12] 1,000 mcg PO DAILY 04/02/16 Docusate Sodium [Colace -] 100 mg PO DAILY PRN 04/02/16 Folic Acid 1 mg PO DAILY 04/02/16 Guaifenesin 200 mg PO Q4H PRN 04/02/16 Insulin Regular, Human [Humulin R U-500 Kwikpen] 100 units SQ ASDIR 04/02/16 Iron 325 mg PO TID 04/02/16 Menthol/Zinc Oxide [Calmoseptine Ointment] 0 gm TP DAILY 04/02/16 Metoprolol Succinate [Toprol Xl] 25 mg PO DAILY 04/02/16 Multivitamins [Tab-A-Vit -] 1 tab PO DAILY 04/02/16 Oseltamivir Phosphate [Tamiflu] 75 mg PO DAILY 04/02/16 Polyethylene Glycol 3350 [Miralax 119 gm Btl -] 17 grams PO DAILY PRN 04/02/16 Tamsulosin HCl [Flomax] 0.4 mg PO DAILY 04/02/16 Family Disease History - Family Disease History Family Disease History: Diabetes: Brother, Heart Disease: Father Review of Systems - Review of Systems Constitutional: reports: Malaise, Weakness Eyes: reports: No Symptoms HENT: reports: No Symptoms Neck: reports: No Symptoms Cardiovascular: reports: No Symptoms Respiratory: reports: No Symptoms Gastrointestinal: reports: Diarrhea Genitourinary: reports: No Symptoms Musculoskeletal: reports: No Symptoms Endocrine: reports: No Symptoms Physical Exam Vital Signs: Vital Signs Temperature 93.8 F L 08/09/16 12:00 Pulse Rate 56 L 08/09/16 12:00 Respiratory Rate 22 08/09/16 12:00 Blood Pressure 83/54 08/09/16 12:00 O2 Sat by Pulse Oximetry (%) 97 08/09/16 11:59 Constitutional: Yes: No Distress Eyes: Yes: Conjunctiva Clear, EOM Intact HENT: Yes: Atraumatic, Normocephalic Neck: Yes: Supple, Trachea Midline Cardiovascular: Yes: Regular Rate and Rhythm Respiratory: Yes: Regular, CTA Bilaterally Gastrointestinal: Yes: Normal Bowel Sounds, Soft Extremities: Yes: Amputation (Rt big toe), Other (Left heel dressing) Edema: LUE: Trace (edema of hand), RUE: Trace (Edema of hand) Neurological: Yes: Alert, Oriented, Other (moves all limbs) Psychiatric: Yes: Alert, Oriented Labs: CBC, BMP 08/09/16 08:00 08/09/16 08:00 Imaging - Results Chest X-ray: Report Reviewed Problem List - Problems (1) Anemia Code(s): D64.9 - ANEMIA, UNSPECIFIED Qualifiers: Anemia type: other cause Other causes of anemia: other cause, not classified Qualified Code(s): D64.89 - Other specified anemias (2) C. difficile colitis Code(s): A04.7 - ENTEROCOLITIS DUE TO CLOSTRIDIUM DIFFICILE (3) Septic shock Code(s): A41.9 - SEPSIS, UNSPECIFIED ORGANISM R65.21 - SEVERE SEPSIS WITH SEPTIC SHOCK (4) UTI (urinary tract infection) Code(s): N39.0 - URINARY TRACT INFECTION, SITE NOT SPECIFIED (5) Bradycardia Code(s): R00.1 - BRADYCARDIA, UNSPECIFIED (6) Diarrhea Code(s): R19.7 - DIARRHEA, UNSPECIFIED Qualifiers: Diarrhea type: infectious Qualified Code(s): A09 - Infectious gastroenteritis and colitis, unspecified Assessment/Plan AP: Hypothyroidism: subclinical. Pt was not on thyroid hormone replacement prior to admission. USP medication list reviewed. Continue LT4 25. Bradycardia and hypotension unlikely to be related to the subclinical hypothyroidism Hypotension: Morning cortisol 14 Will give trial of Hydrocortisone 50 mg Q6hr IV for a few days as some patients with persitent hypotension benefit from it. Sepsis/Hypothermia UTI DM: ELVIE QACHS Novolog SS coverage
[2016-08-09] MEDS: HYDROCORTISONE SOD SUCCINATE 100 MG/2 ML VIAL IVPB SCH ×2 (16:29→21:26)
[2016-08-09] MEDS ORDERED: ACETAMINOPHEN 325 MG TABLET (FP) PO PRN (19:44)
[2016-08-09] MEDS ORDERED: guaiFENesin 200 MG/10 ML 10 ML UNIT-DOSE CUPS PO PRN (19:44)
[2016-08-09] MEDS ORDERED: ONDANSETRON 4 MG/2 ML VIAL IVPB PRN (19:44)
--- NOTE | 2016-08-09 20:02 | PN ---
Progress Note (short form) - Note Progress Note: Still hypotensive/hypothermic. Awake Denies chest pain, shortness of breath, palpitation or dizziness. O/E Vital Signs Period Temp Pulse Resp BP Sys/Martino Pulse Ox Last 24 Hr 93.8 F-97.6 F 44-69 16-24 66-96/42-71 95-97 Heartt regular Lungs clear' Abd soft Ext no edema Not cold Current Medications Generic Name Dose Route Start Last Admin Trade Name Freq PRN Reason Stop Dose Admin Acetaminophen 650 mg 07/27/16 19:04 08/05/16 09:00 Tylenol - PO 650 mg Q4H PRN Administration FEVER OR PAIN Ascorbic Acid 500 mg 07/27/16 22:00 08/05/16 06:07 Vitamin C - PO 500 mg TID OLESYA Administration Aspirin 81 mg 07/27/16 22:00 08/05/16 08:59 Asa - PO 81 mg BID OLESYA Administration Collagenase 1 applic 08/05/16 12:30 Santyl - TP DAILY OLESYA Cyanocobalamin 1,000 mcg 07/28/16 10:00 08/05/16 09:00 Vitamin B12 - PO 1,000 mcg DAILY OLESYA Administration Enoxaparin Sodium 40 mg 07/28/16 10:00 08/05/16 09:00 Lovenox - SQ 40 mg DAILY OLESYA Administration Ferrous Sulfate 325 mg 07/27/16 22:00 08/05/16 06:07 Feosol - PO 325 mg TID OLESYA Administration Folic Acid 1 mg 07/28/16 10:00 08/05/16 09:00 Folic Acid - PO 1 mg DAILY OLESYA Administration Guaifenesin 10 ml 07/29/16 21:53 07/29/16 22:00 Robitussin - PO 10 ml Q8H PRN Administration Metronidazole 100 mls @ 100 mls/hr 08/02/16 18:00 08/05/16 09:00 Flagyl 500mg Premixed Ivpb - IVPB 100 mls/hr Q8H-IV OLESYA Administration Ertapenem 1 gm/ Sodium 50 mls @ 100 mls/hr 08/03/16 10:00 08/05/16 10:08 Chloride IVPB 100 mls/hr DAILY OLESYA Administration Protocol Sodium Bicarbonate 150 meq/ 1,150 mls @ 83 mls/hr 08/04/16 11:30 08/05/16 02:30 Dextrose IV 83 mls/hr Q13H OLESYA Administration Insulin Aspart 1 vial 07/27/16 22:00 08/05/16 10:51 Novolog Vial Sliding Scale - SQ Not Given ACHS [facility] Protocol Levothyroxine Sodium 25 mcg 08/04/16 11:15 08/05/16 06:07 Synthroid - PO 25 mcg DAILY@0700 OLESYA Administration Multivitamins/Minerals/Vitamin C 1 tab 07/28/16 10:00 08/05/16 09:01 Tab-A-Vit - PO 1 tab DAILY OLESYA Administration Nystatin 1 applic 08/05/16 12:30 Nystop Powder - TP DAILY OLESYA Ondansetron HCl 4 mg 07/27/16 19:04 Zofran Injection IVPB Q6H PRN NAUSEA Potassium Phos/Sodium Phos 1 packet 07/27/16 22:00 08/05/16 06:07 Phos-Nak Packet - PO 1 packet TID OLESYA Administration Tamsulosin HCl 0.4 mg 07/28/16 08:30 08/05/16 08:58 Flomax - PO 0.4 mg DAILY@0830 [facility] Administration Vancomycin HCl 125 mg 08/02/16 18:00 08/05/16 11:41 Vancomycin Oral Solution PO 125 mg Q6HPO OLESYA Administration CBC, BMP 08/09/16 08:00 08/09/16 08:00 Microbiology 08/02/16 07:15 Blood - Peripheral Venous Blood Culture - Preliminary NO GROWTH OBTAINED AFTER 24 HOURS, INCUBATION TO CONTINUE FOR 4 DAYS. 08/02/16 06:55 Blood - Peripheral Venous Blood Culture - Preliminary NO GROWTH OBTAINED AFTER 24 HOURS, INCUBATION TO CONTINUE FOR 4 DAYS. A&P (1) UTI (urinary tract infection) Assessment/Plan: Continue IV abx ID follow up appreciated. Code(s): N39.0 - URINARY TRACT INFECTION, SITE NOT SPECIFIED (2) C diff colitis Assessment/Plan: - Still with profuse diarrhea -Continue oral vancomycin and IV flagyl Code(s): R19.7 - DIARRHEA, UNSPECIFIED Qualifiers: Diarrhea type: unspecified type Qualified Code(s): R19.7 - Diarrhea, unspecified (3) Hypothermia Sepsis protocol. (4) Anemia Assessment/Plan: -chronic and stable Code(s): D64.9 - ANEMIA, UNSPECIFIED Qualifiers: Anemia type: other cause Other causes of anemia: other cause, not classified Qualified Code(s): D64.89 - Other specified anemias (5) Chronic systolic CHF (congestive heart failure) Assessment/Plan: -not in exacerbation -continue hydration for sepsis Code(s): I50.22 - CHRONIC SYSTOLIC (CONGESTIVE) HEART FAILURE (6) CAD (coronary artery disease) -continue home regimen -cardiology following Code(s): I25.10 - ATHSCL HEART DISEASE OF [place] CORONARY ARTERY W/O ANG PCTRS (7) HTN (hypertension) Assessment/Plan: Code(s): I10 - ESSENTIAL (PRIMARY) HYPERTENSION Now hypotensive. BP meds on hold. (8) Hypernatremia Assessment/Plan: -Continue IV fluids - Renal follow up appreciated. Code(s): E87.0 - HYPEROSMOLALITY AND HYPERNATREMIA 9) Bradycardia Cardiology follow up appreciated. 10) Hypothyroidism TSH high. Continue levothyroxine 25 mcg daily. Endocrine consult reviewed and appreciated. CC time: 38 minutes
[2016-08-10] MEDS: VANCOMYCIN 250 MG/5 ML ORAL SOLUTION PO SCH ×4 (00:10→17:05)
[2016-08-10] MEDS: METRONIDAZOLE 500 MG PREMIXED 100 ML IVPB SCH ×3 (02:25→17:06)
[2016-08-10] MEDS: HYDROCORTISONE SOD SUCCINATE 100 MG/2 ML VIAL IVPB SCH ×4 (03:33→22:09)
[2016-08-10] MEDS: INSULIN SLIDING SCALE (NOVOLOG) 1 VIAL SQ SCH ×4 (06:33→22:15)
[2016-08-10] MEDS: NAPH,MB-DB/K PH,MBDB POWDER PACKET PO SCH ×3 (06:36→22:10)
[2016-08-10] MEDS: LEVOTHYROXINE NA 25 MCG TABLET (FP) PO SCH (06:36)
[2016-08-10] MEDS: ASCORBIC ACID 500 MG TABLET (FP) PO SCH ×3 (06:36→22:09)
[2016-08-10] MEDS: FERROUS SO4 325 MG TABLET (FP) PO SCH ×3 (06:36→22:09)
[2016-08-10 07:49] LABS: BASOPHIL 0.3 % (0-2.0); MCH 33.7 pg (25.7-33.7); MCHC 33.3 g/dl (32.0-35.9); MEAN CELL VOLUME 101.3 fl (80-96); MEAN PLT VOLUME 9.3 fl (7.5-11.1); NEUTROPHILS 89.3 % (42.8-82.8); PLATELET COUNT 212 K/MM3 (134-434); RDW 16.6 % (11.9-15.9); WHITE BLOOD COUNT 6.3 K/mm3 (4.0-10.0)
[2016-08-10 08:14] LABS: ALBUMIN 1.4 g/dl (3.4-5.0); ALK PHOS 93 U/L (45-117); ANION GAP 9 (8-16); BILIRUBIN,TOTAL 0.2 mg/dL (0.2-1.0); CALCIUM 7.6 mg/dL (8.5-10.1); CO2 23 mmol/L (21-32); COCKROFT - GAULT 87.8; CREATININE 0.7 mg/dL (0.7-1.3); GLUCOSE,RANDOM 153 mg/dL (74-106); MAGNESIUM 1.9 mg/dL (1.8-2.4); PHOSPHOROUS 3.6 mg/dL (2.5-4.9); SGOT/AST 22 U/L (15-37); SGPT/ALT 13 U/L (12-78); TOT PROT 5.2 g/dl (6.4-8.2)
--- NOTE | 2016-08-10 09:17 | PN ---
Progress Note (short form) - Note Progress Note: No new complaints No CP/SOB Vital Signs Period Temp Pulse Resp BP Sys/Martino Pulse Ox Last 24 Hr 92.4 F-95.2 F 44-88 12-23 66-150/42-85 97-97 PE: Awake, alert HEENT: EOMOI Neck: Supple, No JVD Lungs: CTA Abd: Benign Abd: Benign Ext: S/P rt big toe amputation CMP Sodium 148 mmol/L (136-145) H 08/10/16 07:30 Potassium 3.7 mmol/L (3.5-5.1) 08/10/16 07:30 Chloride 116 mmol/L (98-107) H 08/10/16 07:30 Carbon Dioxide 23 mmol/L (21-32) 08/10/16 07:30 Anion Gap 9 (8-16) 08/10/16 07:30 BUN 9 mg/dL (7-18) 08/10/16 07:30 Creatinine 0.7 mg/dL (0.7-1.3) 08/10/16 07:30 Creat Clearance w eGFR > 60 (>60) 08/10/16 07:30 POC Glucometer 184.21748 UNITS (()) 08/10/16 06:12 Random Glucose 153 mg/dL (74-106) H D 08/10/16 07:30 Serum Osmolality 292 mosm/kg (278-305) 08/04/16 10:40 Lactic Acid 1.3 mmol/L (0.4-2.0) 08/05/16 05:15 Calcium 7.6 mg/dL (8.5-10.1) L 08/10/16 07:30 Phosphorus 3.6 mg/dL (2.5-4.9) D 08/10/16 07:30 Magnesium 1.9 mg/dL (1.8-2.4) 08/10/16 07:30 Total Bilirubin 0.2 mg/dL (0.2-1.0) 08/10/16 07:30 AST 22 U/L (15-37) 08/10/16 07:30 ALT 13 U/L (12-78) 08/10/16 07:30 Alkaline Phosphatase 93 U/L (45-117) 08/10/16 07:30 Creatine Kinase 27 IU/L (39-308) L 07/27/16 17:20 Troponin I < 0.02 ng/ml (0.00-0.05) 07/27/16 17:20 Total Protein 5.2 g/dl (6.4-8.2) L 08/10/16 07:30 Albumin 1.4 g/dl (3.4-5.0) L 08/10/16 07:30 Lipase 31 U/L (73-393) L 07/26/16 19:07 TSH 6.14 uIU/ml (0.358-3.74) H D 08/04/16 05:38 Free T4 1.12 ng/dl (0.76-1.16) 08/04/16 05:38 Free T3 1.2 pg/ml (2.0-4.4) L 08/04/16 10:57 Cortisol AM Sample 14.0 ug/dL (.) 08/02/16 06:55 Current Medications Generic Name Dose Route Start Last Admin Trade Name Freq PRN Reason Stop Dose Admin Acetaminophen 650 mg 08/09/16 19:44 Tylenol - PO Q4H PRN FEVER OR PAIN Ascorbic Acid 500 mg 08/09/16 22:00 08/10/16 06:36 Vitamin C - PO 500 mg TID OLESYA Administration Aspirin 81 mg 08/09/16 22:00 08/09/16 21:26 Asa - PO 81 mg BID OLESYA Administration Collagenase 1 applic 08/10/16 10:00 Santyl - TP DAILY OLESYA Cyanocobalamin 1,000 mcg 08/10/16 10:00 Vitamin B12 - PO DAILY OLESYA Enoxaparin Sodium 40 mg 08/10/16 10:00 Lovenox - SQ DAILY OLESYA Ferrous Sulfate 325 mg 08/09/16 22:00 08/10/16 06:36 Feosol - PO 325 mg TID OLESYA Administration Folic Acid 1 mg 08/10/16 10:00 Folic Acid - PO DAILY OLESYA Guaifenesin 10 ml 08/09/16 19:44 Robitussin - PO Q8H PRN Hydrocortisone Sodium Succinate 50 mg 08/09/16 16:00 08/10/16 03:33 Solu-Cortef - IVPB 50 mg Q6H-IV OLESYA Administration Metronidazole 100 mls @ 100 mls/hr 08/10/16 02:00 08/10/16 02:25 Flagyl 500mg Premixed Ivpb - IVPB 100 mls/hr Q8H-IV OLESYA Administration Insulin Aspart 1 vial 08/09/16 22:00 08/10/16 06:33 Novolog Vial Sliding Scale - SQ Not Given ACHS [facility] Protocol Levothyroxine Sodium 25 mcg 08/10/16 07:00 08/10/16 06:36 Synthroid - PO 25 mcg DAILY@0700 OLESYA Administration Multivitamins/Minerals/Vitamin C 1 tab 08/10/16 10:00 Tab-A-Vit - PO DAILY OLESYA Nystatin 1 applic 08/10/16 10:00 Nystop Powder - TP DAILY OLESYA Ondansetron HCl 4 mg 08/09/16 19:44 Zofran Injection IVPB Q6H PRN NAUSEA Potassium Phos/Sodium Phos 1 packet 08/09/16 22:00 08/10/16 06:36 Phos-Nak Packet - PO 1 packet TID OLESYA Administration Tamsulosin HCl 0.4 mg 08/10/16 08:30 Flomax - PO DAILY@0830 [facility] Vancomycin HCl 125 mg 08/10/16 00:00 08/10/16 06:36 Vancomycin Oral Solution PO 125 mg Q6HPO OLESYA Administration AP: Hypothyroidism: subclinical. Pt was not on thyroid hormone replacement prior to admission. senior care medication list reviewed. Continue LT4 25. Bradycardia and hypotension unlikely to be related to the subclinical hypothyroidism Repeat TFT Hypotension: Some improvement in blood pressure Morning cortisol 14 Continue Hydrocortisone 50 mg Q6hr IV for a few days as some patients with persitent hypotension benefit from it. Bradycardia: unlikely to be related to her thyroid status or any other endocrine issues Sepsis/Hypothermia UTI DM: BGM QACHS Novolog SS coverage Problem List - Problems (1) Anemia Code(s): D64.9 - ANEMIA, UNSPECIFIED Qualifiers: Anemia type: other cause Other causes of anemia: other cause, not classified Qualified Code(s): D64.89 - Other specified anemias (2) C. difficile colitis Code(s): A04.7 - ENTEROCOLITIS DUE TO CLOSTRIDIUM DIFFICILE (3) Septic shock Code(s): A41.9 - SEPSIS, UNSPECIFIED ORGANISM R65.21 - SEVERE SEPSIS WITH SEPTIC SHOCK (4) UTI (urinary tract infection) Code(s): N39.0 - URINARY TRACT INFECTION, SITE NOT SPECIFIED (5) Bradycardia Code(s): R00.1 - BRADYCARDIA, UNSPECIFIED (6) Diarrhea Code(s): R19.7 - DIARRHEA, UNSPECIFIED Qualifiers: Diarrhea type: infectious Qualified Code(s): A09 - Infectious gastroenteritis and colitis, unspecified
[2016-08-10] MEDS ORDERED: PT OWN MED DRAWER 7, Y5N ONE (09:28)
[2016-08-10] MEDS: TAMSULOSIN HCL 0.4 MG CAP.ER.24H (FP) PO SCH (09:41)
[2016-08-10] MEDS: FOLIC ACID 1 MG TABLET (FP) PO SCH (09:41)
[2016-08-10] MEDS: ASPIRIN 81 MG CHEWABLE TABLETS PO SCH ×2 (09:41→22:09)
[2016-08-10] MEDS: CYANOCOBALAMIN 1,000 MCG TABLET (FP) PO SCH (09:42)
[2016-08-10] MEDS: MULTIVITAMINS (DAILY MVI) TABLET (FP) PO SCH (09:42)
[2016-08-10] MEDS: ENOXAPARIN NA (PORCINE) 40 MG/0.4 ML DISP.SYRIN SQ SCH (09:42)
[2016-08-10] MEDS: NYSTATIN POWDER 100,000 UNITS/GM - 15 GM TOPICAL POWDER TP SCH (09:45)
[2016-08-10] MEDS: COLLAGENASE CLOSTRIDIUM HIST. 30 GRAMS TUBE TP SCH (09:45)
--- NOTE | 2016-08-10 10:29 | PN ---
Progress Note (short form) - Note Progress Note: Chief Complaint: resp failure CC: bradycardia History of Present Illness: worsened effusion on cxr. alert. denies cp, sob, dizzy, leg swelling. Current Medications Acetaminophen (Tylenol -) 650 mg PO Q4H PRN PRN Reason: FEVER OR PAIN Ascorbic Acid (Vitamin C -) 500 mg PO TID [facility] Last Admin: 08/10/16 06:36 Dose: 500 mg Aspirin (Asa -) 81 mg PO BID [facility] Last Admin: 08/10/16 09:41 Dose: 81 mg Collagenase (Santyl -) 1 applic TP DAILY [facility] Last Admin: 08/10/16 09:45 Dose: 1 applic Cyanocobalamin (Vitamin B12 -) 1,000 mcg PO DAILY [facility] Last Admin: 08/10/16 09:42 Dose: 1,000 mcg Enoxaparin Sodium (Lovenox -) 40 mg SQ DAILY [facility] Last Admin: 08/10/16 09:42 Dose: 40 mg Ferrous Sulfate (Feosol -) 325 mg PO TID [facility] Last Admin: 08/10/16 06:36 Dose: 325 mg Folic Acid (Folic Acid -) 1 mg PO DAILY [facility] Last Admin: 08/10/16 09:41 Dose: 1 mg Guaifenesin (Robitussin -) 10 ml PO Q8H PRN Hydrocortisone Sodium Succinate (Solu-Cortef -) 50 mg IVPB Q6H-IV [facility] Last Admin: 08/10/16 09:41 Dose: 50 mg Metronidazole (Flagyl 500mg Premixed Ivpb -) 100 mls @ 100 mls/hr IVPB Q8H-IV [facility] Last Admin: 08/10/16 09:44 Dose: 100 mls/hr Insulin Aspart (Novolog Vial Sliding Scale -) 1 vial SQ ACHS [facility] PRN Reason: Protocol Last Admin: 08/10/16 06:33 Dose: Not Given Levothyroxine Sodium (Synthroid -) 25 mcg PO DAILY@0700 [facility] Last Admin: 08/10/16 06:36 Dose: 25 mcg Multivitamins/Minerals/Vitamin C (Tab-A-Vit -) 1 tab PO DAILY [facility] Last Admin: 08/10/16 09:42 Dose: 1 tab Nystatin (Nystop Powder -) 1 applic TP DAILY [facility] Last Admin: 08/10/16 09:45 Dose: 1 applic Ondansetron HCl (Zofran Injection) 4 mg IVPB Q6H PRN PRN Reason: NAUSEA Potassium Phos/Sodium Phos (Phos-Nak Packet -) 1 packet PO TID [facility] Last Admin: 08/10/16 06:36 Dose: 1 packet Tamsulosin HCl (Flomax -) 0.4 mg PO DAILY@0830 [facility] Last Admin: 08/10/16 09:41 Dose: 0.4 mg Vancomycin HCl (Vancomycin Oral Solution) 125 mg PO Q6HPO [facility] Last Admin: 08/10/16 06:36 Dose: 125 mg Vital Signs - 24 hr 08/09/16 08/09/16 08/09/16 11:59 12:00 14:00 Temperature 93.8 F L 95.1 F L Pulse Rate 55 L 56 L 48 L Respiratory 22 17 Rate Blood Pressure 83/54 66/51 O2 Sat by Pulse 97 Oximetry (%) 08/09/16 08/09/16 08/09/16 16:00 18:00 20:00 Temperature 93.8 F L Pulse Rate 55 L 62 56 L Respiratory 23 21 14 Rate Blood Pressure 85/55 88/56 81/62 O2 Sat by Pulse Oximetry (%) 08/09/16 08/09/16 08/10/16 21:00 22:00 00:00 Temperature 92.4 F L Pulse Rate 68 58 L Respiratory 18 14 Rate Blood Pressure 79/57 88/54 O2 Sat by Pulse 97 Oximetry (%) 08/10/16 08/10/16 08/10/16 02:00 04:00 06:00 Temperature 94.8 F L 95.2 F L Pulse Rate 59 L 88 66 Respiratory 12 14 12 Rate Blood Pressure 80/58 76/61 150/85 O2 Sat by Pulse Oximetry (%) 08/10/16 08:00 Temperature Pulse Rate 75 Respiratory 17 Rate Blood Pressure 81/61 O2 Sat by Pulse Oximetry (%) Intake & Output 08/08/16 08/09/16 08/10/16 08/11/16 07:59 07:59 07:59 07:59 Intake Total 2318 2782 950 Output Total 300 Balance 2017 2782 950 Weight 161 lb 8 oz 163 lb 12.8 oz 165 lb 8 oz Constitutional: Yes: Well Nourished, No Distress, Calm Cardiovascular: Yes: Regular Rate and Rhythm, S1, S2. No: JVD, Gallop, Murmur Respiratory: Yes: Regular, bibasilar crackles. No: Accessory Muscle Use Extremities: No: Cold Edema: Yes (UE swelling L > R) Neurological: Yes: Alert. No: Seizure Psychiatric: No: Agitated Labs: CBC, BMP 08/10/16 07:30 08/10/16 07:30 Laboratory Tests 08/10/16 07:30 Magnesium 1.9 Albumin 1.4 L tele: sr, sb ecg 07/26/16: sr 59, nl intervals, no ischemic changes initial cxr: no chf --> subsequent cxr: bibasilar densities with left pleural effusion. 08/10 cxr: mod rt pl effusion new. 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 sepsis: -cont abx per ID, s/p ivf, ongoing mgm't per ICU htn: -septic, bp on low side, holding htn meds. poor po intake and diarrhea (now resolving). now off IVF - possible contribution to hypotension from adrenal insufficiency? now on steroids cad/mi: -prior mibi showing infarct, no ischemia -no signs acs, trop neg x2 -cp here seems [facility] after a recent fall -cont home asa -? not on statin per [place] med list--defer to outpt treatment and review or prior chart in [place] chronic systolic chf, EF normalized on echo here -previously with mod reduced EF on nuclear 2011--? etiology at that time -echo here showing nl overall LVEF -initially no signs vol overload here. 08/10 now s/p chronic IVF and with worsening pleural effusions/edema. Nutrition support, now off IVF. bradycardia: -pt with known sinus tashia evaluated with holter on prior admit that showed no pathologic bradycardia -tele here with sr in 40s at times so have stopped bb, avoid meds that cause bradycardia - endo work up ongoing. improving with steroids. VTach: -10 beat run NSVT on tele 08/09 -repleting K...Mag ok -EF preserved -holding BB due to bradycardia--no compelling indication for NSVT in setting of sepsis, with normal LV fxn 3rd spacing/UE edema/hypoalb -alb 1.3 -UE elevation as indicated prn
--- NOTE | 2016-08-10 10:41 | PN ---
Progress Note (short form) - Note Progress Note: O/E Patient seen and examined. Alert, awake, oriented. Interactive in conversation. Afebrile. BP remains on the lower side but asymptomatic. Hypothermic. Denies chest pain, shortness of breath, palpitation or dizziness. Vital Signs Period Temp Pulse Resp BP Sys/Martino Pulse Ox Last 24 Hr 92.4 F-95.2 F 48-88 12-23 66-150/51-85 97-97 Heartt regular Lungs clear' Abd soft Ext no edema Not cold Current Medications Acetaminophen (Tylenol -) 650 mg PO Q4H PRN PRN Reason: FEVER OR PAIN Ascorbic Acid (Vitamin C -) 500 mg PO TID [facility] Last Admin: 08/10/16 06:36 Dose: 500 mg Aspirin (Asa -) 81 mg PO BID [facility] Last Admin: 08/10/16 09:41 Dose: 81 mg Collagenase (Santyl -) 1 applic TP DAILY [facility] Last Admin: 08/10/16 09:45 Dose: 1 applic Cyanocobalamin (Vitamin B12 -) 1,000 mcg PO DAILY [facility] Last Admin: 08/10/16 09:42 Dose: 1,000 mcg Enoxaparin Sodium (Lovenox -) 40 mg SQ DAILY [facility] Last Admin: 08/10/16 09:42 Dose: 40 mg Ferrous Sulfate (Feosol -) 325 mg PO TID [facility] Last Admin: 08/10/16 06:36 Dose: 325 mg Folic Acid (Folic Acid -) 1 mg PO DAILY [facility] Last Admin: 08/10/16 09:41 Dose: 1 mg Guaifenesin (Robitussin -) 10 ml PO Q8H PRN Hydrocortisone Sodium Succinate (Solu-Cortef -) 50 mg IVPB Q6H-IV [facility] Last Admin: 08/10/16 09:41 Dose: 50 mg Metronidazole (Flagyl 500mg Premixed Ivpb -) 100 mls @ 100 mls/hr IVPB Q8H-IV [facility] Last Admin: 08/10/16 09:44 Dose: 100 mls/hr Insulin Aspart (Novolog Vial Sliding Scale -) 1 vial SQ ACHS [facility] PRN Reason: Protocol Last Admin: 08/10/16 06:33 Dose: Not Given Levothyroxine Sodium (Synthroid -) 25 mcg PO DAILY@0700 [facility] Last Admin: 08/10/16 06:36 Dose: 25 mcg Multivitamins/Minerals/Vitamin C (Tab-A-Vit -) 1 tab PO DAILY [facility] Last Admin: 08/10/16 09:42 Dose: 1 tab Nystatin (Nystop Powder -) 1 applic TP DAILY [facility] Last Admin: 08/10/16 09:45 Dose: 1 applic Ondansetron HCl (Zofran Injection) 4 mg IVPB Q6H PRN PRN Reason: NAUSEA Potassium Phos/Sodium Phos (Phos-Nak Packet -) 1 packet PO TID [facility] Last Admin: 08/10/16 06:36 Dose: 1 packet Tamsulosin HCl (Flomax -) 0.4 mg PO DAILY@0830 [facility] Last Admin: 08/10/16 09:41 Dose: 0.4 mg Vancomycin HCl (Vancomycin Oral Solution) 125 mg PO Q6HPO [facility] Last Admin: 08/10/16 06:36 Dose: 125 mg CBC, BMP 08/10/16 07:30 08/10/16 07:30 Microbiology 08/02/16 07:15 Blood - Peripheral Venous Blood Culture - Preliminary NO GROWTH OBTAINED AFTER 24 HOURS, INCUBATION TO CONTINUE FOR 4 DAYS. 08/02/16 06:55 Blood - Peripheral Venous Blood Culture - Preliminary NO GROWTH OBTAINED AFTER 24 HOURS, INCUBATION TO CONTINUE FOR 4 DAYS. A&P (1) UTI (urinary tract infection) Assessment/Plan: Continue IV abx ID follow up appreciated. Code(s): N39.0 - URINARY TRACT INFECTION, SITE NOT SPECIFIED (2) C diff colitis Assessment/Plan: - Still with profuse diarrhea -Continue oral vancomycin and IV flagyl Code(s): R19.7 - DIARRHEA, UNSPECIFIED Qualifiers: Diarrhea type: unspecified type Qualified Code(s): R19.7 - Diarrhea, unspecified (3) Hypothermia Sepsis protocol. (4) Anemia Assessment/Plan: -chronic and stable Code(s): D64.9 - ANEMIA, UNSPECIFIED Qualifiers: Anemia type: other cause Other causes of anemia: other cause, not classified Qualified Code(s): D64.89 - Other specified anemias (5) Chronic systolic CHF (congestive heart failure) Assessment/Plan: -not in exacerbation -continue hydration for sepsis Code(s): I50.22 - CHRONIC SYSTOLIC (CONGESTIVE) HEART FAILURE (6) CAD (coronary artery disease) -continue home regimen -cardiology following Code(s): I25.10 - ATHSCL HEART DISEASE OF [place] CORONARY ARTERY W/O ANG PCTRS (7) HTN (hypertension) Assessment/Plan: Code(s): I10 - ESSENTIAL (PRIMARY) HYPERTENSION Now hypotensive. BP meds on hold. Trial of hydrocortisone IV per endo. (8) Hypernatremia Assessment/Plan: -Continue IV fluids - Renal follow up appreciated. Code(s): E87.0 - HYPEROSMOLALITY AND HYPERNATREMIA 9) Bradycardia Cardiology follow up appreciated. 10) Hypothyroidism TSH high. Continue levothyroxine 25 mcg daily. Endocrine consult reviewed and appreciated. CC time: 35 minutes
--- NOTE | 2016-08-10 11:28 | PN ---
Progress Note (short form) - Note Progress Note: Renal follow up for Metabolic acidosis and Hypernatremia Pt seen and examined in the ICU awake and alert continue to have diarrhea hypothermic, BP marginal Vital Signs Temperature 95.2 F L 08/10/16 06:00 Pulse Rate 63 08/10/16 10:00 Respiratory Rate 10 L 08/10/16 10:00 Blood Pressure 89/69 08/10/16 10:00 O2 Sat by Pulse Oximetry (%) 97 08/09/16 21:00 Intake & Output 08/07/16 08/08/16 08/09/16 08/10/16 23:59 23:59 23:59 23:59 Intake Total 2218 2551 1375 300 Output Total 300 Balance 1918 2551 1375 300 Weight 160 lb 6.4 oz 161 lb 8 oz 163 lb 12.8 oz 165 lb 8 oz Gen: NAD, on NC CVS: RRR Lungs :Dec Bs at lung bases but no rales, wheeze Abd: soft NT/ND Ext: UE edema, No LE edema Neuro: Awake and alert CBC, BMP 08/10/16 07:30 08/10/16 07:30 Laboratory Tests 08/10/16 07:30 Calcium 7.6 L Phosphorus 3.6 D Magnesium 1.9 Albumin 1.4 L Current Medications Acetaminophen (Tylenol -) 650 mg PO Q4H PRN PRN Reason: FEVER OR PAIN Ascorbic Acid (Vitamin C -) 500 mg PO TID [facility] Last Admin: 08/10/16 06:36 Dose: 500 mg Aspirin (Asa -) 81 mg PO BID [facility] Last Admin: 08/10/16 09:41 Dose: 81 mg Collagenase (Santyl -) 1 applic TP DAILY [facility] Last Admin: 08/10/16 09:45 Dose: 1 applic Cyanocobalamin (Vitamin B12 -) 1,000 mcg PO DAILY [facility] Last Admin: 08/10/16 09:42 Dose: 1,000 mcg Enoxaparin Sodium (Lovenox -) 40 mg SQ DAILY [facility] Last Admin: 08/10/16 09:42 Dose: 40 mg Ferrous Sulfate (Feosol -) 325 mg PO TID [facility] Last Admin: 08/10/16 06:36 Dose: 325 mg Folic Acid (Folic Acid -) 1 mg PO DAILY [facility] Last Admin: 08/10/16 09:41 Dose: 1 mg Guaifenesin (Robitussin -) 10 ml PO Q8H PRN Hydrocortisone Sodium Succinate (Solu-Cortef -) 50 mg IVPB Q6H-IV [facility] Last Admin: 08/10/16 09:41 Dose: 50 mg Metronidazole (Flagyl 500mg Premixed Ivpb -) 100 mls @ 100 mls/hr IVPB Q8H-IV [facility] Last Admin: 08/10/16 09:44 Dose: 100 mls/hr Insulin Aspart (Novolog Vial Sliding Scale -) 1 vial SQ ACHS [facility] PRN Reason: Protocol Last Admin: 08/10/16 06:33 Dose: Not Given Levothyroxine Sodium (Synthroid -) 25 mcg PO DAILY@0700 [facility] Last Admin: 08/10/16 06:36 Dose: 25 mcg Multivitamins/Minerals/Vitamin C (Tab-A-Vit -) 1 tab PO DAILY [facility] Last Admin: 08/10/16 09:42 Dose: 1 tab Nystatin (Nystop Powder -) 1 applic TP DAILY [facility] Last Admin: 08/10/16 09:45 Dose: 1 applic Ondansetron HCl (Zofran Injection) 4 mg IVPB Q6H PRN PRN Reason: NAUSEA Potassium Phos/Sodium Phos (Phos-Nak Packet -) 1 packet PO TID [facility] Last Admin: 08/10/16 06:36 Dose: 1 packet Tamsulosin HCl (Flomax -) 0.4 mg PO DAILY@0830 [facility] Last Admin: 08/10/16 09:41 Dose: 0.4 mg Vancomycin HCl (Vancomycin Oral Solution) 125 mg PO Q6HPO [facility] Last Admin: 08/10/16 06:36 Dose: 125 mg A/P 80 year old Gentleman with PMhx of AAA, Hypertension, GERD, DM Type 2, Anemia, C. Diff colitis, Hyperlipidemia, CAD with Hx of IA presented with hypothermia and found to have Sepsis related to UTI and C. Diff Colitis with diarrhea with metabolic acidosis and hypernatremia. #Metabolic acidosis (NAG) secondary to GI losses Serum Na has improved to normal limits pt is off all bicarb supplamentation Trend serum bicarb as pt continues to have diarrhea #Hypernatremia free water intake as tolerated #Sepsis/Hypothermia/Cdiff on IV Flagyl and PO Vanco started on Hydrocortisone IV #Hypophosphatemia continue oral neutraphos #Hypomagnesemia improved #Anemia Transfuse as per ICU protocol Medardo Huerta DO
--- NOTE | 2016-08-10 11:48 | PN ---
Teaching Attending Note Name of Resident: Madina Saldana ATTENDING PHYSICIAN STATEMENT I saw and evaluated the patient. I reviewed the resident's note and discussed the case with the resident. I agree with the resident's findings and plan as documented. SUBJECTIVE: Patient seen and examined in the ICU. Awake and alert. HR and BP slightly better today. Denies CP, SOB, dizziness, etc. No fevers recorded. Still with some diarrhea, but less. OBJECTIVE: Intake & Output 08/07/16 08/08/16 08/09/16 08/10/16 23:59 23:59 23:59 23:59 Intake Total 2218 2551 1375 300 Output Total 300 Balance 1918 2551 1375 300 Weight 160 lb 6.4 oz 161 lb 8 oz 163 lb 12.8 oz 165 lb 8 oz Last Vital Signs Temp Pulse Resp BP Pulse Ox 95.2 F L 53 L 10 L 89/69 97 08/10/16 06:00 08/10/16 11:28 08/10/16 10:00 08/10/16 10:00 08/10/16 11:28 Active Medications Acetaminophen (Tylenol -) 650 mg PO Q4H PRN PRN Reason: FEVER OR PAIN Ascorbic Acid (Vitamin C -) 500 mg PO TID [facility] Last Admin: 08/10/16 06:36 Dose: 500 mg Aspirin (Asa -) 81 mg PO BID [facility] Last Admin: 08/10/16 09:41 Dose: 81 mg Collagenase (Santyl -) 1 applic TP DAILY [facility] Last Admin: 08/10/16 09:45 Dose: 1 applic Cyanocobalamin (Vitamin B12 -) 1,000 mcg PO DAILY [facility] Last Admin: 08/10/16 09:42 Dose: 1,000 mcg Enoxaparin Sodium (Lovenox -) 40 mg SQ DAILY [facility] Last Admin: 08/10/16 09:42 Dose: 40 mg Ferrous Sulfate (Feosol -) 325 mg PO TID [facility] Last Admin: 08/10/16 06:36 Dose: 325 mg Folic Acid (Folic Acid -) 1 mg PO DAILY [facility] Last Admin: 08/10/16 09:41 Dose: 1 mg Guaifenesin (Robitussin -) 10 ml PO Q8H PRN Hydrocortisone Sodium Succinate (Solu-Cortef -) 50 mg IVPB Q6H-IV [facility] Last Admin: 08/10/16 09:41 Dose: 50 mg Metronidazole (Flagyl 500mg Premixed Ivpb -) 100 mls @ 100 mls/hr IVPB Q8H-IV [facility] Last Admin: 08/10/16 09:44 Dose: 100 mls/hr Insulin Aspart (Novolog Vial Sliding Scale -) 1 vial SQ ACHS [facility] PRN Reason: Protocol Last Admin: 08/10/16 06:33 Dose: Not Given Levothyroxine Sodium (Synthroid -) 25 mcg PO DAILY@0700 [facility] Last Admin: 08/10/16 06:36 Dose: 25 mcg Multivitamins/Minerals/Vitamin C (Tab-A-Vit -) 1 tab PO DAILY [facility] Last Admin: 08/10/16 09:42 Dose: 1 tab Nystatin (Nystop Powder -) 1 applic TP DAILY [facility] Last Admin: 08/10/16 09:45 Dose: 1 applic Ondansetron HCl (Zofran Injection) 4 mg IVPB Q6H PRN PRN Reason: NAUSEA Potassium Phos/Sodium Phos (Phos-Nak Packet -) 1 packet PO TID [facility] Last Admin: 08/10/16 06:36 Dose: 1 packet Tamsulosin HCl (Flomax -) 0.4 mg PO DAILY@0830 [facility] Last Admin: 08/10/16 09:41 Dose: 0.4 mg Vancomycin HCl (Vancomycin Oral Solution) 125 mg PO Q6HPO [facility] Last Admin: 08/10/16 06:36 Dose: 125 mg Gen: alert, awake Heart: RRR Lung: bilateral rhonchi Abd: soft, nontender Ext: + edema Laboratory Results - last 24 hr 08/09/16 08/09/16 08/09/16 12:00 16:16 21:39 WBC RBC Hgb Hct MCV MCHC RDW Plt Count MPV Neutrophils % Lymphocytes % Monocytes % Eosinophils % Basophils % Sodium Potassium Chloride Carbon Dioxide Anion Gap BUN Creatinine Creat Clearance w eGFR POC Glucometer 164.84810 143.62529 193.36608 Random Glucose Calcium Phosphorus Magnesium Total Bilirubin AST ALT Alkaline Phosphatase Total Protein Albumin 08/10/16 08/10/16 08/10/16 06:12 07:30 07:30 WBC 6.3 D RBC 2.88 L Hgb 9.7 L D Hct 29.2 L D MCV 101.3 H MCHC 33.3 RDW 16.6 H Plt Count 212 MPV 9.3 Neutrophils % 89.3 H Lymphocytes % 9.6 D Monocytes % 0.8 L D Eosinophils % 0.0 D Basophils % 0.3 Sodium 148 H Potassium 3.7 Chloride 116 H Carbon Dioxide 23 Anion Gap 9 BUN 9 Creatinine 0.7 Creat Clearance w eGFR > 60 POC Glucometer 184.05258 Random Glucose 153 H D Calcium 7.6 L Phosphorus 3.6 D Magnesium 1.9 Total Bilirubin 0.2 AST 22 ALT 13 Alkaline Phosphatase 93 Total Protein 5.2 L Albumin 1.4 L ASSESSMENT AND PLAN: UTI C Diff Colitis Pneumonia vs Atelectasis Septic Shock CAD LV Systolic Dysfunction HTN Hypothyroidism - ABX per ID - Endocrine evaluation noted - monitor urine output, creatinine - replete lytes - free water - continue synthroid - aspiration precautions - attempt incentive spirometry - DVT prophylaxis - 4W/4S Monitoring Dr Salguero Critical care time spent in reviewing chart, evaluating patient and formulating plan 35 min
--- NOTE | 2016-08-10 13:18 | PN ---
Physical Exam: SUBJECTIVE: Patient seen and examined. He doesn't have any complaints today. He denies dizziness, chest pain, SOB, abdominal pain, diarrhea stopped. OBJECTIVE: Vital Signs Period Temp Pulse Resp BP Sys/Martino Pulse Ox Last 24 Hr 92.4 F-95.2 F 48-88 10-23 66-150/51-85 97-97 GENERAL: The patient is awake, alert, and fully oriented, in no acute distress. HEAD: Normal with no signs of trauma. EYES: extraocular movements intact, sclera anicteric, conjunctiva clear. ENT: oropharynx clear without exudates, moist mucous membranes. NECK: Trachea midline, supple. LUNGS: Breath sounds equal, diminished breath sounds bilaterally, no wheezes, no crackles, no accessory muscle use. HEART: Regular rate and rhythm, S1, S2 without murmur, rub or gallop. ABDOMEN: Soft, nontender, nondistended, normoactive bowel sounds, no guarding, no rebound, no hepatosplenomegaly, no masses. EXTREMITIES: warm, no edema in hands and feet b/l, amputated left toe, no erythema. NEUROLOGICAL: Normal speech, gait not observed. PSYCH: Normal mood, normal affect. SKIN: Warm, dry, normal turgor, venous stasis changes in lower extremities B/L. Laboratory Results - last 24 hr 08/09/16 08/09/16 08/10/16 16:16 21:39 06:12 WBC RBC Hgb Hct MCV MCHC RDW Plt Count MPV Neutrophils % Lymphocytes % Monocytes % Eosinophils % Basophils % Sodium Potassium Chloride Carbon Dioxide Anion Gap BUN Creatinine Creat Clearance w eGFR POC Glucometer 143.47970 193.27693 184.67787 Random Glucose Calcium Phosphorus Magnesium Total Bilirubin AST ALT Alkaline Phosphatase Total Protein Albumin 08/10/16 08/10/16 08/10/16 07:30 07:30 12:51 WBC 6.3 D RBC 2.88 L Hgb 9.7 L D Hct 29.2 L D MCV 101.3 H MCHC 33.3 RDW 16.6 H Plt Count 212 MPV 9.3 Neutrophils % 89.3 H Lymphocytes % 9.6 D Monocytes % 0.8 L D Eosinophils % 0.0 D Basophils % 0.3 Sodium 148 H Potassium 3.7 Chloride 116 H Carbon Dioxide 23 Anion Gap 9 BUN 9 Creatinine 0.7 Creat Clearance w eGFR > 60 POC Glucometer 208.58205 Random Glucose 153 H D Calcium 7.6 L Phosphorus 3.6 D Magnesium 1.9 Total Bilirubin 0.2 AST 22 ALT 13 Alkaline Phosphatase 93 Total Protein 5.2 L Albumin 1.4 L Active Medications Generic Name Dose Route Start Last Admin Trade Name Freq PRN Reason Stop Dose Admin Acetaminophen 650 mg 08/09/16 19:44 Tylenol - PO Q4H PRN FEVER OR PAIN Ascorbic Acid 500 mg 08/09/16 22:00 08/10/16 06:36 Vitamin C - PO 500 mg TID [facility] Administration Aspirin 81 mg 08/09/16 22:00 08/10/16 09:41 Asa - PO 81 mg BID [facility] Administration Collagenase 1 applic 08/10/16 10:00 08/10/16 09:45 Santyl - TP 1 applic DAILY [facility] Administration Cyanocobalamin 1,000 mcg 08/10/16 10:00 08/10/16 09:42 Vitamin B12 - PO 1,000 mcg DAILY [facility] Administration Enoxaparin Sodium 40 mg 08/10/16 10:00 08/10/16 09:42 Lovenox - SQ 40 mg DAILY [facility] Administration Ferrous Sulfate 325 mg 08/09/16 22:00 08/10/16 06:36 Feosol - PO 325 mg TID [facility] Administration Folic Acid 1 mg 08/10/16 10:00 08/10/16 09:41 Folic Acid - PO 1 mg DAILY [facility] Administration Guaifenesin 10 ml 08/09/16 19:44 Robitussin - PO Q8H PRN Hydrocortisone Sodium Succinate 50 mg 08/09/16 16:00 08/10/16 09:41 Solu-Cortef - IVPB 50 mg Q6H-IV [facility] Administration Metronidazole 100 mls @ 100 mls/hr 08/10/16 02:00 08/10/16 09:44 Flagyl 500mg Premixed Ivpb - IVPB 100 mls/hr Q8H-IV [facility] Administration Insulin Aspart 1 vial 08/09/16 22:00 08/10/16 12:53 Novolog Vial Sliding Scale - SQ 4 units ACHS [facility] Administration Protocol Levothyroxine Sodium 25 mcg 08/10/16 07:00 08/10/16 06:36 Synthroid - PO 25 mcg DAILY@0700 [facility] Administration Multivitamins/Minerals/Vitamin C 1 tab 08/10/16 10:00 08/10/16 09:42 Tab-A-Vit - PO 1 tab DAILY [facility] Administration Nystatin 1 applic 08/10/16 10:00 08/10/16 09:45 Nystop Powder - TP 1 applic DAILY [facility] Administration Ondansetron HCl 4 mg 08/09/16 19:44 Zofran Injection IVPB Q6H PRN NAUSEA Potassium Phos/Sodium Phos 1 packet 08/09/16 22:00 08/10/16 06:36 Phos-Nak Packet - PO 1 packet TID [facility] Administration Tamsulosin HCl 0.4 mg 08/10/16 08:30 08/10/16 09:41 Flomax - PO 0.4 mg DAILY@0830 [facility] Administration Vancomycin HCl 125 mg 08/10/16 00:00 08/10/16 12:56 Vancomycin Oral Solution PO 125 mg Q6HPO [facility] Administration ASSESSMENT/PLAN: 80 year old male with a PMH of AAA, HTN, DM type 2, hypothyroidism, anemia, h/o of C.Diff in March 2016, CAD who was brought to the hospital from [facility] for hypothermia. He originally was admitted to the floor but was found to be hypothermic and transferred to the ICU. Hypothermia: -the pt had temp 93 recorded -hypothermic again, Septic shock due to UTI: -hypothermia, hypotension, and leukocytosis -f/u Endocrinology recommendations, STARTED Hydrocortisone yesterday to increase PB -will continue D5W -continue Flagyl Combined Anion gap and non-anion gap metabolic acidosis with resp compensation -etology not known -D5w -serum Bicarb normalized -if CO2 less then 15 repeat abg Hypernatremia: -continue D5W -monitor Hypothyroidism: -elevated TSH 6.16 and free T3 low, free T4 normal -started Synthroid 25 mcq -f/u Carding Supervisor recommendations Diarrhea -secondary to c. diff -continue Flagyl Chest pain -no ACS -f/u cardiology recommendation Hypokalemia: -repleated -will monitor Hypomagnesemia: -repleated Anemia -chronic -continue iron -monitor tomorrow Chronic systolic CHF (congestive heart failure) -not in exacerbation -f/u cardiology recommendation HTN -currently hypotensive -holding toprol xl Disposition: can be transferred to telemetry Problem List - Problems (1) Anemia Code(s): D64.9 - ANEMIA, UNSPECIFIED Qualifiers: Anemia type: other cause Other causes of anemia: other cause, not classified Qualified Code(s): D64.89 - Other specified anemias (2) Chest pain Code(s): R07.9 - CHEST PAIN, UNSPECIFIED (3) Chronic systolic CHF (congestive heart failure) Code(s): I50.22 - CHRONIC SYSTOLIC (CONGESTIVE) HEART FAILURE (4) HCAP (healthcare-associated pneumonia) Code(s): J18.9 - PNEUMONIA, UNSPECIFIED ORGANISM (5) Hypernatremia Code(s): E87.0 - HYPEROSMOLALITY AND HYPERNATREMIA (6) Hypoxia Code(s): R09.02 - HYPOXEMIA (7) Pneumonia Code(s): J18.9 - PNEUMONIA, UNSPECIFIED ORGANISM Qualifiers: Pneumonia type: due to unspecified organism Laterality: right Lung location: lower lobe of lung Qualified Code(s): J18.1 - Lobar pneumonia, unspecified organism (8) Septic shock Code(s): A41.9 - SEPSIS, UNSPECIFIED ORGANISM R65.21 - SEVERE SEPSIS WITH SEPTIC SHOCK (9) UTI (urinary tract infection) Code(s): N39.0 - URINARY TRACT INFECTION, SITE NOT SPECIFIED (10) Bradycardia Code(s): R00.1 - BRADYCARDIA, UNSPECIFIED (11) CAD (coronary artery disease) Code(s): I25.10 - ATHSCL HEART DISEASE OF [place] CORONARY ARTERY W/O ANG PCTRS (12) Dehydration Code(s): E86.0 - DEHYDRATION (13) Diabetes mellitus type 2 in nonobese Code(s): E11.9 - TYPE 2 DIABETES MELLITUS WITHOUT COMPLICATIONS (14) Diarrhea Code(s): R19.7 - DIARRHEA, UNSPECIFIED Qualifiers: Diarrhea type: infectious Qualified Code(s): A09 - Infectious gastroenteritis and colitis, unspecified (15) HLD (hyperlipidemia) Code(s): E78.5 - HYPERLIPIDEMIA, UNSPECIFIED (16) HTN (hypertension) Code(s): I10 - ESSENTIAL (PRIMARY) HYPERTENSION Visit type - Emergency Visit Emergency Visit: Yes ED Registration Date: 07/26/16 Care time: The patient presented to the Emergency Department on the above date and was hospitalized for further evaluation of their emergent condition. - New Patient This patient is new to me today: No - Critical Care Critical Care patient: Yes Total Critical Care Time (in minutes): 50 Critical Care Statement: The care of this patient involved high complexity decision making to prevent further life threatening deterioration of the patient 's condition and/or to evalute & treat vital organ system(s) failure or risk of failure.
--- NOTE | 2016-08-10 17:14 | PN ---
Progress Note, Physician History of Present Illness: remaining stable stable endo on the case - Current Medication List Current Medications: Active Medications Acetaminophen (Tylenol -) 650 mg PO Q4H PRN PRN Reason: FEVER OR PAIN Ascorbic Acid (Vitamin C -) 500 mg PO TID [facility] Last Admin: 08/10/16 16:35 Dose: 500 mg Aspirin (Asa -) 81 mg PO BID [facility] Last Admin: 08/10/16 09:41 Dose: 81 mg Collagenase (Santyl -) 1 applic TP DAILY [facility] Last Admin: 08/10/16 09:45 Dose: 1 applic Cyanocobalamin (Vitamin B12 -) 1,000 mcg PO DAILY [facility] Last Admin: 08/10/16 09:42 Dose: 1,000 mcg Enoxaparin Sodium (Lovenox -) 40 mg SQ DAILY [facility] Last Admin: 08/10/16 09:42 Dose: 40 mg Ferrous Sulfate (Feosol -) 325 mg PO TID [facility] Last Admin: 08/10/16 16:34 Dose: 325 mg Folic Acid (Folic Acid -) 1 mg PO DAILY [facility] Last Admin: 08/10/16 09:41 Dose: 1 mg Guaifenesin (Robitussin -) 10 ml PO Q8H PRN Hydrocortisone Sodium Succinate (Solu-Cortef -) 50 mg IVPB Q6H-IV [facility] Last Admin: 08/10/16 16:34 Dose: 50 mg Metronidazole (Flagyl 500mg Premixed Ivpb -) 100 mls @ 100 mls/hr IVPB Q8H-IV [facility] Last Admin: 08/10/16 17:06 Dose: 100 mls/hr Insulin Aspart (Novolog Vial Sliding Scale -) 1 vial SQ ACHS [facility] PRN Reason: Protocol Last Admin: 08/10/16 16:51 Dose: Not Given Levothyroxine Sodium (Synthroid -) 25 mcg PO DAILY@0700 [facility] Last Admin: 08/10/16 06:36 Dose: 25 mcg Multivitamins/Minerals/Vitamin C (Tab-A-Vit -) 1 tab PO DAILY [facility] Last Admin: 08/10/16 09:42 Dose: 1 tab Nystatin (Nystop Powder -) 1 applic TP DAILY [facility] Last Admin: 08/10/16 09:45 Dose: 1 applic Ondansetron HCl (Zofran Injection) 4 mg IVPB Q6H PRN PRN Reason: NAUSEA Potassium Phos/Sodium Phos (Phos-Nak Packet -) 1 packet PO TID [facility] Last Admin: 08/10/16 16:35 Dose: 1 packet Tamsulosin HCl (Flomax -) 0.4 mg PO DAILY@0830 [facility] Last Admin: 08/10/16 09:41 Dose: 0.4 mg Vancomycin HCl (Vancomycin Oral Solution) 125 mg PO Q6HPO [facility] Last Admin: 08/10/16 17:05 Dose: 125 mg - Objective Vital Signs: Vital Signs Temperature 95.0 F L 08/10/16 14:00 Pulse Rate 59 L 08/10/16 16:00 Respiratory Rate 15 08/10/16 16:00 Blood Pressure 82/56 08/10/16 16:00 O2 Sat by Pulse Oximetry (%) 97 08/10/16 11:28 Constitutional: Yes: No Distress, Calm Cardiovascular: Yes: Bradycardia Respiratory: Yes: Regular, CTA Bilaterally Gastrointestinal: Yes: Normal Bowel Sounds, Soft Edema: LLE: 1+, RLE: 1+ Neurological: Yes: Alert Psychiatric: Yes: Alert Labs: CBC, BMP 08/10/16 07:30 08/10/16 07:30 INR, PTT INR 1.17 (0.82-1.09) H 07/26/16 19:07 Assessment/Plan Problem List - Problems (1) Septic shock Code(s): A41.9 - SEPSIS, UNSPECIFIED ORGANISM R65.21 - SEVERE SEPSIS WITH SEPTIC SHOCK (2) HCAP (healthcare-associated pneumonia) Code(s): J18.9 - PNEUMONIA, UNSPECIFIED ORGANISM (3) UTI (urinary tract infection) Code(s): N39.0 - URINARY TRACT INFECTION, SITE NOT SPECIFIED (4) Diarrhea Code(s): R19.7 - DIARRHEA, UNSPECIFIED Qualifiers: Diarrhea type: unspecified type Qualified Code(s): R19.7 - Diarrhea, unspecified (5) Chest pain Code(s): R07.9 - CHEST PAIN, UNSPECIFIED (6) Anemia Code(s): D64.9 - ANEMIA, UNSPECIFIED Qualifiers: Anemia type: other cause Other causes of anemia: other cause, not classified Qualified Code(s): D64.89 - Other specified anemias (7) Chronic systolic CHF (congestive heart failure) Code(s): I50.22 - CHRONIC SYSTOLIC (CONGESTIVE) HEART FAILURE (8) CAD (coronary artery disease) Code(s): I25.10 - ATHSCL HEART DISEASE OF [place] CORONARY ARTERY W/O ANG PCTRS (9) Dehydration Code(s): E86.0 - DEHYDRATION (10) HTN (hypertension) Code(s): I10 - ESSENTIAL (PRIMARY) HYPERTENSION (11) Hypernatremia Code(s): E87.0 - HYPEROSMOLALITY AND HYPERNATREMIA 12 hypothermia 13 cdiff plan conitnue current mgmt cx results noted stopped abx close watch on him now monitor temp will consider stopping flagyl tomorrow rest as per icu cc time 40 min
--- NOTE | 2016-08-10 17:16 | PN ---
Progress Note, Physician History of Present Illness: remaining stable stable heating blanket for low temp - Current Medication List Current Medications: Active Medications Acetaminophen (Tylenol -) 650 mg PO Q4H PRN PRN Reason: FEVER OR PAIN Ascorbic Acid (Vitamin C -) 500 mg PO TID [facility] Last Admin: 08/10/16 16:35 Dose: 500 mg Aspirin (Asa -) 81 mg PO BID [facility] Last Admin: 08/10/16 09:41 Dose: 81 mg Collagenase (Santyl -) 1 applic TP DAILY [facility] Last Admin: 08/10/16 09:45 Dose: 1 applic Cyanocobalamin (Vitamin B12 -) 1,000 mcg PO DAILY [facility] Last Admin: 08/10/16 09:42 Dose: 1,000 mcg Enoxaparin Sodium (Lovenox -) 40 mg SQ DAILY [facility] Last Admin: 08/10/16 09:42 Dose: 40 mg Ferrous Sulfate (Feosol -) 325 mg PO TID [facility] Last Admin: 08/10/16 16:34 Dose: 325 mg Folic Acid (Folic Acid -) 1 mg PO DAILY [facility] Last Admin: 08/10/16 09:41 Dose: 1 mg Guaifenesin (Robitussin -) 10 ml PO Q8H PRN Hydrocortisone Sodium Succinate (Solu-Cortef -) 50 mg IVPB Q6H-IV [facility] Last Admin: 08/10/16 16:34 Dose: 50 mg Insulin Aspart (Novolog Vial Sliding Scale -) 1 vial SQ ACHS [facility] PRN Reason: Protocol Last Admin: 08/10/16 16:51 Dose: Not Given Levothyroxine Sodium (Synthroid -) 25 mcg PO DAILY@0700 [facility] Last Admin: 08/10/16 06:36 Dose: 25 mcg Multivitamins/Minerals/Vitamin C (Tab-A-Vit -) 1 tab PO DAILY [facility] Last Admin: 08/10/16 09:42 Dose: 1 tab Nystatin (Nystop Powder -) 1 applic TP DAILY [facility] Last Admin: 08/10/16 09:45 Dose: 1 applic Ondansetron HCl (Zofran Injection) 4 mg IVPB Q6H PRN PRN Reason: NAUSEA Potassium Phos/Sodium Phos (Phos-Nak Packet -) 1 packet PO TID [facility] Last Admin: 08/10/16 16:35 Dose: 1 packet Tamsulosin HCl (Flomax -) 0.4 mg PO DAILY@0830 [facility] Last Admin: 08/10/16 09:41 Dose: 0.4 mg Vancomycin HCl (Vancomycin Oral Solution) 125 mg PO Q6HPO [facility] Last Admin: 08/10/16 17:05 Dose: 125 mg - Objective Vital Signs: Vital Signs Temperature 95.0 F L 08/10/16 14:00 Pulse Rate 59 L 08/10/16 16:00 Respiratory Rate 15 08/10/16 16:00 Blood Pressure 82/56 08/10/16 16:00 O2 Sat by Pulse Oximetry (%) 97 08/10/16 11:28 Constitutional: Yes: No Distress, Calm Cardiovascular: Yes: Bradycardia Respiratory: Yes: Regular, CTA Bilaterally Gastrointestinal: Yes: Normal Bowel Sounds, Soft Musculoskeletal: Yes: WNL Edema: LLE: 1+, RLE: 1+ Neurological: Yes: Alert Psychiatric: Yes: Alert Labs: CBC, BMP 08/10/16 07:30 08/10/16 07:30 INR, PTT INR 1.17 (0.82-1.09) H 07/26/16 19:07 - ....Imaging Chest X-ray: Report Reviewed, Image Reviewed Assessment/Plan Problem List - Problems (1) Septic shock Code(s): A41.9 - SEPSIS, UNSPECIFIED ORGANISM R65.21 - SEVERE SEPSIS WITH SEPTIC SHOCK (2) HCAP (healthcare-associated pneumonia) Code(s): J18.9 - PNEUMONIA, UNSPECIFIED ORGANISM (3) UTI (urinary tract infection) Code(s): N39.0 - URINARY TRACT INFECTION, SITE NOT SPECIFIED (4) Diarrhea Code(s): R19.7 - DIARRHEA, UNSPECIFIED Qualifiers: Diarrhea type: unspecified type Qualified Code(s): R19.7 - Diarrhea, unspecified (5) Chest pain Code(s): R07.9 - CHEST PAIN, UNSPECIFIED (6) Anemia Code(s): D64.9 - ANEMIA, UNSPECIFIED Qualifiers: Anemia type: other cause Other causes of anemia: other cause, not classified Qualified Code(s): D64.89 - Other specified anemias (7) Chronic systolic CHF (congestive heart failure) Code(s): I50.22 - CHRONIC SYSTOLIC (CONGESTIVE) HEART FAILURE (8) CAD (coronary artery disease) Code(s): I25.10 - ATHSCL HEART DISEASE OF [place] CORONARY ARTERY W/O ANG PCTRS (9) Dehydration Code(s): E86.0 - DEHYDRATION (10) HTN (hypertension) Code(s): I10 - ESSENTIAL (PRIMARY) HYPERTENSION (11) Hypernatremia Code(s): E87.0 - HYPEROSMOLALITY AND HYPERNATREMIA 12 hypothermia 13 cdiff plan conitnue current mgmt cx results noted stable off of abx close watch on him now monitor temp will consider stopping flagyl tomorrow rest as per icu continue oral vanco cc time 40 min
[2016-08-11] MEDS: VANCOMYCIN 250 MG/5 ML ORAL SOLUTION PO SCH ×4 (00:51→17:36)
[2016-08-11] MEDS: HYDROCORTISONE SOD SUCCINATE 100 MG/2 ML VIAL IVPB SCH ×4 (03:09→17:36)
[2016-08-11] MEDS: FERROUS SO4 325 MG TABLET (FP) PO SCH ×3 (06:11→21:58)
[2016-08-11] MEDS: ASCORBIC ACID 500 MG TABLET (FP) PO SCH ×3 (06:11→21:58)
[2016-08-11] MEDS: NAPH,MB-DB/K PH,MBDB POWDER PACKET PO SCH ×3 (06:11→21:59)
[2016-08-11] MEDS: LEVOTHYROXINE NA 25 MCG TABLET (FP) PO SCH (06:11)
[2016-08-11] MEDS: INSULIN SLIDING SCALE (NOVOLOG) 1 VIAL SQ SCH ×4 (06:13→21:58)
[2016-08-11 07:29] LABS: ALBUMIN 1.5 g/dl (3.4-5.0); ANION GAP 8 (8-16); BASOPHIL 0.2 % (0-2.0); BILIRUBIN,TOTAL 0.2 mg/dL (0.2-1.0); CALCIUM 7.5 mg/dL (8.5-10.1); CO2 24 mmol/L (21-32); COCKROFT - GAULT 87.8; CREATININE 0.7 mg/dL (0.7-1.3); GLUCOSE,RANDOM 121 mg/dL (74-106); MAGNESIUM 1.8 mg/dL (1.8-2.4); MCH 33.6 pg (25.7-33.7); MCHC 33.3 g/dl (32.0-35.9); MEAN CELL VOLUME 100.8 fl (80-96); MEAN PLT VOLUME 9.6 fl (7.5-11.1); PHOSPHOROUS 3.2 mg/dL (2.5-4.9); PLATELET COUNT 218 K/MM3 (134-434); RDW 16.7 % (11.9-15.9); SGOT/AST 23 U/L (15-37); SGPT/ALT 13 U/L (12-78); WHITE BLOOD COUNT 11.4 K/mm3 (4.0-10.0)
[2016-08-11 07:37] LABS: ALK PHOS 94 U/L (45-117); THYROID STIMULATING HORMONE 2.19 uIU/ml (0.358-3.74)
[2016-08-11] MEDS: TAMSULOSIN HCL 0.4 MG CAP.ER.24H (FP) PO SCH (08:46)
--- NOTE | 2016-08-11 09:22 | PN ---
Progress Note (short form) - Note Progress Note: No new complaints No CP/SOB Sitting in bed eating breakfast Vital Signs Period Temp Pulse Resp BP Sys/Martino Pulse Ox Last 24 Hr 94.9 F-95.0 F 52-63 10-20 82-122/50-70 95-97 PE: Awake, alert HEENT: EOMOI Neck: Supple, No JVD Lungs: CTA Abd: Benign, BS+ CVS: s1S2 Ext: S/P rt big toe amputation CMP Sodium 147 mmol/L (136-145) H 08/11/16 05:35 Potassium 3.4 mmol/L (3.5-5.1) L 08/11/16 05:35 Chloride 115 mmol/L (98-107) H 08/11/16 05:35 Carbon Dioxide 24 mmol/L (21-32) 08/11/16 05:35 Anion Gap 8 (8-16) 08/11/16 05:35 BUN 14 mg/dL (7-18) D 08/11/16 05:35 Creatinine 0.7 mg/dL (0.7-1.3) 08/11/16 05:35 Creat Clearance w eGFR > 60 (>60) 08/11/16 05:35 POC Glucometer 128 UNITS (()) 08/11/16 06:12 Random Glucose 121 mg/dL (74-106) H D 08/11/16 05:35 Serum Osmolality 292 mosm/kg (278-305) 08/04/16 10:40 Lactic Acid 1.3 mmol/L (0.4-2.0) 08/05/16 05:15 Calcium 7.5 mg/dL (8.5-10.1) L 08/11/16 05:35 Phosphorus 3.2 mg/dL (2.5-4.9) 08/11/16 05:35 Magnesium 1.8 mg/dL (1.8-2.4) 08/11/16 05:35 Total Bilirubin 0.2 mg/dL (0.2-1.0) 08/11/16 05:35 AST 23 U/L (15-37) 08/11/16 05:35 ALT 13 U/L (12-78) 08/11/16 05:35 Alkaline Phosphatase 94 U/L (45-117) 08/11/16 05:35 Creatine Kinase 27 IU/L (39-308) L 07/27/16 17:20 Troponin I < 0.02 ng/ml (0.00-0.05) 07/27/16 17:20 Total Protein 5.0 g/dl (6.4-8.2) L 08/11/16 05:35 Albumin 1.5 g/dl (3.4-5.0) L 08/11/16 05:35 Lipase 31 U/L (73-393) L 07/26/16 19:07 TSH 2.19 uIU/ml (0.358-3.74) D 08/11/16 05:35 Free T4 1.12 ng/dl (0.76-1.16) 08/04/16 05:38 Free T3 1.2 pg/ml (2.0-4.4) L 08/04/16 10:57 Cortisol AM Sample 14.0 ug/dL (.) 08/02/16 06:55 Current Medications Generic Name Dose Route Start Last Admin Trade Name Jolie PRN Reason Stop Dose Admin Acetaminophen 650 mg 08/09/16 19:44 Tylenol - PO Q4H PRN FEVER OR PAIN Ascorbic Acid 500 mg 08/09/16 22:00 08/11/16 06:11 Vitamin C - PO 500 mg TID [facility] Administration Aspirin 81 mg 08/09/16 22:00 08/10/16 22:09 Asa - PO 81 mg BID [facility] Administration Collagenase 1 applic 08/10/16 10:00 08/10/16 09:45 Santyl - TP 1 applic DAILY [facility] Administration Cyanocobalamin 1,000 mcg 08/10/16 10:00 08/10/16 09:42 Vitamin B12 - PO 1,000 mcg DAILY [facility] Administration Enoxaparin Sodium 40 mg 08/10/16 10:00 08/10/16 09:42 Lovenox - SQ 40 mg DAILY [facility] Administration Ferrous Sulfate 325 mg 08/09/16 22:00 08/11/16 06:11 Feosol - PO 325 mg TID [facility] Administration Folic Acid 1 mg 08/10/16 10:00 08/10/16 09:41 Folic Acid - PO 1 mg DAILY [facility] Administration Guaifenesin 10 ml 08/09/16 19:44 Robitussin - PO Q8H PRN Hydrocortisone Sodium Succinate 50 mg 08/09/16 16:00 08/11/16 03:09 Solu-Cortef - IVPB 50 mg Q6H-IV [facility] Administration Insulin Aspart 1 vial 08/09/16 22:00 08/11/16 06:13 Novolog Vial Sliding Scale - SQ Not Given ACHS [facility] Protocol Levothyroxine Sodium 25 mcg 08/10/16 07:00 08/11/16 06:11 Synthroid - PO 25 mcg DAILY@0700 [facility] Administration Multivitamins/Minerals/Vitamin C 1 tab 08/10/16 10:00 08/10/16 09:42 Tab-A-Vit - PO 1 tab DAILY [facility] Administration Nystatin 1 applic 08/10/16 10:00 08/10/16 09:45 Nystop Powder - TP 1 applic DAILY [facility] Administration Ondansetron HCl 4 mg 08/09/16 19:44 Zofran Injection IVPB Q6H PRN NAUSEA Potassium Phos/Sodium Phos 1 packet 08/09/16 22:00 08/11/16 06:11 Phos-Nak Packet - PO 1 packet TID [facility] Administration Tamsulosin HCl 0.4 mg 08/10/16 08:30 08/10/16 09:41 Flomax - PO 0.4 mg DAILY@0830 [facility] Administration Vancomycin HCl 125 mg 08/10/16 00:00 08/11/16 06:11 Vancomycin Oral Solution PO 125 mg Q6HPO [facility] Administration AP: Hypothyroidism: subclinical. Repeat TSH 2.19 Pt was not on thyroid hormone replacement prior to admission. correction medication list reviewed. Continue LT4 25. Bradycardia and hypotension unlikely to be related to the subclinical hypothyroidism Repeat TSH 2.19 Hypotension: Some improvement in blood pressure Morning cortisol was 14 Decrease Hydrocortisone 50 mg Q8hr IV today and then to BID tomorow if tolerated. Will do ACTH Stim test once pt is off Hydrocortisone to decide if he needs to be on replacement on discharge Bradycardia: unlikely to be related to her thyroid status or any other endocrine issues Sepsis/Hypothermia UTI DM: BGM QACHS Novolog SS coverage Problem List - Problems (1) Anemia Code(s): D64.9 - ANEMIA, UNSPECIFIED Qualifiers: Anemia type: other cause Other causes of anemia: other cause, not classified Qualified Code(s): D64.89 - Other specified anemias (2) C. difficile colitis Code(s): A04.7 - ENTEROCOLITIS DUE TO CLOSTRIDIUM DIFFICILE (3) Septic shock Code(s): A41.9 - SEPSIS, UNSPECIFIED ORGANISM R65.21 - SEVERE SEPSIS WITH SEPTIC SHOCK (4) UTI (urinary tract infection) Code(s): N39.0 - URINARY TRACT INFECTION, SITE NOT SPECIFIED (5) Bradycardia Code(s): R00.1 - BRADYCARDIA, UNSPECIFIED (6) Diarrhea Code(s): R19.7 - DIARRHEA, UNSPECIFIED Qualifiers: Diarrhea type: infectious Qualified Code(s): A09 - Infectious gastroenteritis and colitis, unspecified
[2016-08-11] MEDS: ENOXAPARIN NA (PORCINE) 40 MG/0.4 ML DISP.SYRIN SQ SCH (09:45)
[2016-08-11] MEDS: FOLIC ACID 1 MG TABLET (FP) PO SCH (09:46)
[2016-08-11] MEDS: CYANOCOBALAMIN 1,000 MCG TABLET (FP) PO SCH (09:46)
[2016-08-11] MEDS: MULTIVITAMINS (DAILY MVI) TABLET (FP) PO SCH (09:46)
[2016-08-11] MEDS: ASPIRIN 81 MG CHEWABLE TABLETS PO SCH ×2 (09:46→21:58)
[2016-08-11] MEDS: NYSTATIN POWDER 100,000 UNITS/GM - 15 GM TOPICAL POWDER TP SCH (10:07)
[2016-08-11] MEDS: COLLAGENASE CLOSTRIDIUM HIST. 30 GRAMS TUBE TP SCH (10:09)
--- NOTE | 2016-08-11 10:22 | PN ---
Progress Note (short form) - Note Progress Note: s: no sob palps dizzy cp o: Vital Signs Period Temp Pulse Resp BP Sys/Martino Pulse Ox Last 24 Hr 94.9 F-95.0 F 52-59 11-20 82-122/50-70 95-97 nad no jvd, cachectic rrr s1s2 no mrg cta bl nl eff awake, alert, appropriate abd nt nd pos bs no jaundice diaphoresis no le e/c/c Current Medications Generic Name Dose Route Start Last Admin Trade Name Freq PRN Reason Stop Dose Admin Acetaminophen 650 mg 08/09/16 19:44 Tylenol - PO Q4H PRN FEVER OR PAIN Ascorbic Acid 500 mg 08/09/16 22:00 08/11/16 06:11 Vitamin C - PO 500 mg TID [facility] Administration Aspirin 81 mg 08/09/16 22:00 08/11/16 09:46 Asa - PO 81 mg BID [facility] Administration Collagenase 1 applic 08/10/16 10:00 08/11/16 10:09 Santyl - TP 1 applic DAILY [facility] Administration Cyanocobalamin 1,000 mcg 08/10/16 10:00 08/11/16 09:46 Vitamin B12 - PO 1,000 mcg DAILY [facility] Administration Enoxaparin Sodium 40 mg 08/10/16 10:00 08/11/16 09:45 Lovenox - SQ 40 mg DAILY [facility] Administration Ferrous Sulfate 325 mg 08/09/16 22:00 08/11/16 06:11 Feosol - PO 325 mg TID [facility] Administration Folic Acid 1 mg 08/10/16 10:00 08/11/16 09:46 Folic Acid - PO 1 mg DAILY [facility] Administration Guaifenesin 10 ml 08/09/16 19:44 Robitussin - PO Q8H PRN Hydrocortisone Sodium Succinate 50 mg 08/11/16 09:30 08/11/16 09:45 Solu-Cortef - IVPB 50 mg Q8H [facility] Administration Insulin Aspart 1 vial 08/09/16 22:00 08/11/16 06:13 Novolog Vial Sliding Scale - SQ Not Given ACHS [facility] Protocol Levothyroxine Sodium 25 mcg 08/10/16 07:00 08/11/16 06:11 Synthroid - PO 25 mcg DAILY@0700 [facility] Administration Multivitamins/Minerals/Vitamin C 1 tab 08/10/16 10:00 08/11/16 09:46 Tab-A-Vit - PO 1 tab DAILY [facility] Administration Nystatin 1 applic 08/10/16 10:00 08/11/16 10:07 Nystop Powder - TP 1 applic DAILY [facility] Administration Ondansetron HCl 4 mg 08/09/16 19:44 Zofran Injection IVPB Q6H PRN NAUSEA Potassium Phos/Sodium Phos 1 packet 08/09/16 22:00 08/11/16 06:11 Phos-Nak Packet - PO 1 packet TID [facility] Administration Tamsulosin HCl 0.4 mg 08/10/16 08:30 08/11/16 08:46 Flomax - PO 0.4 mg DAILY@0830 [facility] Administration Vancomycin HCl 125 mg 08/10/16 00:00 08/11/16 06:11 Vancomycin Oral Solution PO 125 mg Q6HPO [facility] Administration CBC, BMP 08/11/16 05:35 08/11/16 05:35 tele: sr, sb, pvcs ecg 07/26/16: sr 59, nl intervals, no ischemic changes initial cxr: no chf --> subsequent cxr: bibasilar densities with left pleural effusion. 08/10 cxr: mod rt pl effusion new. chronic lt pl effusion mibi 10/2011: large inferolateral scar, no ischemia, lvef 35% echo 07/2016: tds/limited views: grossly nl lv size/fcn, mild mr a/p: 80 m hx htn, hld, dm, cad/SD (seen on prior mibi), syst chf, sent from vt for sepsis. sepsis: -cont abx per ID htn: -septic, bp on low side, holding htn meds. cad/mi: -prior mibi showing infarct, no ischemia -no signs acs, trop neg x2 -cp here seems [facility] after a recent fall -cont home asa -? not on statin per [place] med list--defer to outpt treatment and review or prior chart in [place] chronic systolic chf, EF normalized on echo here -previously with mod reduced EF on nuclear 2011--? etiology at that time -echo here showing nl overall LVEF -initially no signs vol overload here. 08/10 now s/p chronic IVF and with worsening pleural effusions/edema. Nutrition support, now off IVF. bradycardia: -pt with known sinus tashia evaluated with holter on prior admit that showed no pathologic bradycardia -tele here with sr in 40s at times so have stopped bb, avoid meds that cause bradycardia VTach: -10 beat run NSVT on tele 08/09 -replete lytes prn -EF preserved -holding BB due to bradycardia--no compelling indication for bb for NSVT in setting of sepsis, with normal LV fxn 3rd spacing/UE edema/hypoalb -UE elevation as indicated prn
--- NOTE | 2016-08-11 11:43 | PN ---
Progress Note (short form) - Note Progress Note: Renal follow up for Metabolic acidosis and Hypernatremia Pt seen and examined at the bedside awake and alert no acute complaints rectal tube with dark diarrhea remains hypothermic BP is improved with IV steroids Vital Signs Temperature 94.9 F L 08/11/16 07:45 Pulse Rate 52 L 08/11/16 07:45 Respiratory Rate 20 08/11/16 08:04 Blood Pressure 121/63 08/11/16 07:45 O2 Sat by Pulse Oximetry (%) 95 08/11/16 08:04 Intake & Output 08/08/16 08/09/16 08/10/16 08/11/16 23:59 23:59 23:59 23:59 Intake Total 2551 1375 610 20 Balance 2551 1375 610 20 Weight 161 lb 8 oz 163 lb 12.8 oz 165 lb 8 oz Gen: NAD, on NC CVS: RRR Lungs :Dec Bs at lung bases but no rales, wheeze Abd: soft NT/ND Ext: UE edema, No LE edema Neuro: Awake and alert CBC, BMP 08/11/16 05:35 08/11/16 05:35 Laboratory Tests 08/11/16 05:35 Calcium 7.5 L Phosphorus 3.2 Magnesium 1.8 Albumin 1.5 L Current Medications Acetaminophen (Tylenol -) 650 mg PO Q4H PRN PRN Reason: FEVER OR PAIN Ascorbic Acid (Vitamin C -) 500 mg PO TID [facility] Last Admin: 08/11/16 06:11 Dose: 500 mg Aspirin (Asa -) 81 mg PO BID [facility] Last Admin: 08/11/16 09:46 Dose: 81 mg Collagenase (Santyl -) 1 applic TP DAILY [facility] Last Admin: 08/11/16 10:09 Dose: 1 applic Cyanocobalamin (Vitamin B12 -) 1,000 mcg PO DAILY [facility] Last Admin: 08/11/16 09:46 Dose: 1,000 mcg Enoxaparin Sodium (Lovenox -) 40 mg SQ DAILY [facility] Last Admin: 08/11/16 09:45 Dose: 40 mg Ferrous Sulfate (Feosol -) 325 mg PO TID [facility] Last Admin: 08/11/16 06:11 Dose: 325 mg Folic Acid (Folic Acid -) 1 mg PO DAILY [facility] Last Admin: 08/11/16 09:46 Dose: 1 mg Guaifenesin (Robitussin -) 10 ml PO Q8H PRN Hydrocortisone Sodium Succinate (Solu-Cortef -) 50 mg IVPB Q8H [facility] Last Admin: 08/11/16 09:45 Dose: 50 mg Insulin Aspart (Novolog Vial Sliding Scale -) 1 vial SQ ACHS [facility] PRN Reason: Protocol Last Admin: 08/11/16 06:13 Dose: Not Given Levothyroxine Sodium (Synthroid -) 25 mcg PO DAILY@0700 [facility] Last Admin: 08/11/16 06:11 Dose: 25 mcg Multivitamins/Minerals/Vitamin C (Tab-A-Vit -) 1 tab PO DAILY [facility] Last Admin: 08/11/16 09:46 Dose: 1 tab Nystatin (Nystop Powder -) 1 applic TP DAILY [facility] Last Admin: 08/11/16 10:07 Dose: 1 applic Ondansetron HCl (Zofran Injection) 4 mg IVPB Q6H PRN PRN Reason: NAUSEA Potassium Phos/Sodium Phos (Phos-Nak Packet -) 1 packet PO TID [facility] Last Admin: 08/11/16 06:11 Dose: 1 packet Tamsulosin HCl (Flomax -) 0.4 mg PO DAILY@0830 [facility] Last Admin: 08/11/16 08:46 Dose: 0.4 mg Vancomycin HCl (Vancomycin Oral Solution) 125 mg PO Q6HPO [facility] Last Admin: 08/11/16 06:11 Dose: 125 mg A/P 80 year old Gentleman with PMhx of AAA, Hypertension, GERD, DM Type 2, Anemia, C. Diff colitis, Hyperlipidemia, CAD with Hx of [place] presented with hypothermia and found to have Sepsis related to UTI and C. Diff Colitis with diarrhea with metabolic acidosis and hypernatremia. #Metabolic acidosis (NAG) secondary to GI losses serum bicarb is at goal despite continued diarrhea trend bicarb daily supplement with PO bicarb if level less then 22 #Hypernatremia free water intake would hesitate to give IV D5 given effusions #Sepsis/Hypothermia/Cdiff on IV Flagyl and PO Vanco started on Hydrocortisone IV with improvement in BP #Hypophosphatemia continue oral neutraphos #Hypomagnesemia improved and stable #Anemia Transfuse as per ICU protocol #Hypokalemia Give KCL 40meq PO daily as pt with continued k loss secondary to diarrhea Medardo Huerta DO
--- NOTE | 2016-08-11 11:47 | PN ---
Progress Note, Physician History of Present Illness: PULMONARY ALERT,AWAKE,-RESP DISTRESS. - Current Medication List Current Medications: Active Medications Acetaminophen (Tylenol -) 650 mg PO Q4H PRN PRN Reason: FEVER OR PAIN Ascorbic Acid (Vitamin C -) 500 mg PO TID [facility] Last Admin: 08/11/16 06:11 Dose: 500 mg Aspirin (Asa -) 81 mg PO BID [facility] Last Admin: 08/11/16 09:46 Dose: 81 mg Collagenase (Santyl -) 1 applic TP DAILY [facility] Last Admin: 08/11/16 10:09 Dose: 1 applic Cyanocobalamin (Vitamin B12 -) 1,000 mcg PO DAILY [facility] Last Admin: 08/11/16 09:46 Dose: 1,000 mcg Enoxaparin Sodium (Lovenox -) 40 mg SQ DAILY [facility] Last Admin: 08/11/16 09:45 Dose: 40 mg Ferrous Sulfate (Feosol -) 325 mg PO TID [facility] Last Admin: 08/11/16 06:11 Dose: 325 mg Folic Acid (Folic Acid -) 1 mg PO DAILY [facility] Last Admin: 08/11/16 09:46 Dose: 1 mg Guaifenesin (Robitussin -) 10 ml PO Q8H PRN Hydrocortisone Sodium Succinate (Solu-Cortef -) 50 mg IVPB Q8H [facility] Last Admin: 08/11/16 09:45 Dose: 50 mg Insulin Aspart (Novolog Vial Sliding Scale -) 1 vial SQ ACHS [facility] PRN Reason: Protocol Last Admin: 08/11/16 06:13 Dose: Not Given Levothyroxine Sodium (Synthroid -) 25 mcg PO DAILY@0700 [facility] Last Admin: 08/11/16 06:11 Dose: 25 mcg Multivitamins/Minerals/Vitamin C (Tab-A-Vit -) 1 tab PO DAILY [facility] Last Admin: 08/11/16 09:46 Dose: 1 tab Nystatin (Nystop Powder -) 1 applic TP DAILY [facility] Last Admin: 08/11/16 10:07 Dose: 1 applic Ondansetron HCl (Zofran Injection) 4 mg IVPB Q6H PRN PRN Reason: NAUSEA Potassium Phos/Sodium Phos (Phos-Nak Packet -) 1 packet PO TID [facility] Last Admin: 08/11/16 06:11 Dose: 1 packet Tamsulosin HCl (Flomax -) 0.4 mg PO DAILY@0830 [facility] Last Admin: 08/11/16 08:46 Dose: 0.4 mg Vancomycin HCl (Vancomycin Oral Solution) 125 mg PO Q6HPO [facility] Last Admin: 08/11/16 06:11 Dose: 125 mg - Objective Vital Signs: Vital Signs Temperature 94.9 F L 08/11/16 07:45 Pulse Rate 52 L 08/11/16 07:45 Respiratory Rate 20 08/11/16 08:04 Blood Pressure 121/63 08/11/16 07:45 O2 Sat by Pulse Oximetry (%) 95 08/11/16 08:04 Constitutional: Yes: Well Nourished, Calm Eyes: Yes: WNL HENT: Yes: WNL Neck: Yes: WNL Cardiovascular: Yes: Regular Rate and Rhythm, S1, S2 Respiratory: Yes: Rhonchi (FEW SCATTERED PADMINI RHONCHI), Other Gastrointestinal: Yes: Normal Bowel Sounds, Soft Extremities: Yes: WNL Edema: Yes Labs: CBC, BMP 08/11/16 05:35 08/11/16 05:35 INR, PTT INR 1.17 (0.82-1.09) H 07/26/16 19:07 Assessment/Plan ASSESSMENT AND PLAN: UTI C Diff Colitis Pneumonia vs Atelectasis S/P Septic Shock CAD LV Systolic Dysfunction HTN Hypothyroidism - ABX per ID - monitor urine output, creatinine - replete lytes - free water - synthroid - aspiration precautions - incentive spirometry - DVT prophylaxis DR GRAY
[2016-08-11] MEDS: POTASSIUM CHLORIDE TABS 20 MEQ TABLET.ER (FP) PO SCH (14:14)
--- NOTE | 2016-08-11 17:34 | PN ---
Progress Note (short form) - Note Progress Note: O/E Patient seen and examined. No acute event overnight. BP improved. Denies chest pain, shortness of breath, palpitation or dizziness. Afebrile. Vital Signs Period Temp Pulse Resp BP Sys/Martino Pulse Ox Last 24 Hr 94.9 F-96.4 F 52-56 15-20 85-127/50-70 95-97 Heartt regular Lungs clear' Abd soft Ext no edema Not cold Current Medications Acetaminophen (Tylenol -) 650 mg PO Q4H PRN PRN Reason: FEVER OR PAIN Ascorbic Acid (Vitamin C -) 500 mg PO TID [facility] Last Admin: 08/11/16 14:14 Dose: 500 mg Aspirin (Asa -) 81 mg PO BID [facility] Last Admin: 08/11/16 09:46 Dose: 81 mg Collagenase (Santyl -) 1 applic TP DAILY [facility] Last Admin: 08/11/16 10:09 Dose: 1 applic Cyanocobalamin (Vitamin B12 -) 1,000 mcg PO DAILY [facility] Last Admin: 08/11/16 09:46 Dose: 1,000 mcg Enoxaparin Sodium (Lovenox -) 40 mg SQ DAILY [facility] Last Admin: 08/11/16 09:45 Dose: 40 mg Ferrous Sulfate (Feosol -) 325 mg PO TID [facility] Last Admin: 08/11/16 14:14 Dose: 325 mg Folic Acid (Folic Acid -) 1 mg PO DAILY [facility] Last Admin: 08/11/16 09:46 Dose: 1 mg Guaifenesin (Robitussin -) 10 ml PO Q8H PRN Hydrocortisone Sodium Succinate (Solu-Cortef -) 50 mg IVPB Q8H [facility] Last Admin: 08/11/16 09:45 Dose: 50 mg Insulin Aspart (Novolog Vial Sliding Scale -) 1 vial SQ ACHS [facility] PRN Reason: Protocol Last Admin: 08/11/16 16:17 Dose: Not Given Levothyroxine Sodium (Synthroid -) 25 mcg PO DAILY@0700 [facility] Last Admin: 08/11/16 06:11 Dose: 25 mcg Multivitamins/Minerals/Vitamin C (Tab-A-Vit -) 1 tab PO DAILY [facility] Last Admin: 08/11/16 09:46 Dose: 1 tab Nystatin (Nystop Powder -) 1 applic TP DAILY [facility] Last Admin: 08/11/16 10:07 Dose: 1 applic Ondansetron HCl (Zofran Injection) 4 mg IVPB Q6H PRN PRN Reason: NAUSEA Potassium Chloride (K-Dur -) 40 meq PO DAILY [facility] Last Admin: 08/11/16 14:14 Dose: 40 meq Potassium Phos/Sodium Phos (Phos-Nak Packet -) 1 packet PO TID [facility] Last Admin: 08/11/16 14:14 Dose: 1 packet Tamsulosin HCl (Flomax -) 0.4 mg PO DAILY@0830 [facility] Last Admin: 08/11/16 08:46 Dose: 0.4 mg Vancomycin HCl (Vancomycin Oral Solution) 125 mg PO Q6HPO [facility] Last Admin: 08/11/16 11:43 Dose: 5 ml CBC, BMP 08/11/16 05:35 08/11/16 05:35 Microbiology 08/02/16 07:15 Blood - Peripheral Venous Blood Culture - Preliminary NO GROWTH OBTAINED AFTER 24 HOURS, INCUBATION TO CONTINUE FOR 4 DAYS. 08/02/16 06:55 Blood - Peripheral Venous Blood Culture - Preliminary NO GROWTH OBTAINED AFTER 24 HOURS, INCUBATION TO CONTINUE FOR 4 DAYS. A&P (1) C diff colitis Assessment/Plan: - Still with profuse diarrhea -Continue oral vancomycin. Code(s): R19.7 - DIARRHEA, UNSPECIFIED Qualifiers: Diarrhea type: unspecified type Qualified Code(s): R19.7 - Diarrhea, unspecified (2) Hypothermia Sepsis protocol. (3) Anemia Assessment/Plan: -chronic and stable Code(s): D64.9 - ANEMIA, UNSPECIFIED Qualifiers: Anemia type: other cause Other causes of anemia: other cause, not classified Qualified Code(s): D64.89 - Other specified anemias (4) Chronic systolic CHF (congestive heart failure) Assessment/Plan: -not in exacerbation Code(s): I50.22 - CHRONIC SYSTOLIC (CONGESTIVE) HEART FAILURE (5) CAD (coronary artery disease) -continue home regimen -cardiology following Code(s): I25.10 - ATHSCL HEART DISEASE OF [place] CORONARY ARTERY W/O ANG PCTRS (6) HTN (hypertension) Assessment/Plan: Code(s): I10 - ESSENTIAL (PRIMARY) HYPERTENSION Now hypotensive. BP meds on hold. Hydrocortisone initiated with improvement in BP. (7) Hypernatremia Assessment/Plan: - Encourage free water intake. - Renal follow up appreciated. Code(s): E87.0 - HYPEROSMOLALITY AND HYPERNATREMIA 8) Bradycardia Cardiology follow up appreciated. 9) Hypothyroidism Repeat TSh 2.19 Continue levothyroxine 25 mcg daily. Endocrine consult reviewed and appreciated. 10) Hypokalemia Potassium repleted
[2016-08-12] MEDS: HYDROCORTISONE SOD SUCCINATE 100 MG/2 ML VIAL IVPB SCH ×4 (00:43→22:12)
[2016-08-12] MEDS: VANCOMYCIN 250 MG/5 ML ORAL SOLUTION PO SCH ×4 (00:46→17:56)
[2016-08-12] MEDS: LEVOTHYROXINE NA 25 MCG TABLET (FP) PO SCH (06:48)
[2016-08-12] MEDS: NAPH,MB-DB/K PH,MBDB POWDER PACKET PO SCH ×3 (06:48→22:11)
[2016-08-12] MEDS: ASCORBIC ACID 500 MG TABLET (FP) PO SCH ×3 (06:48→22:11)
[2016-08-12] MEDS: INSULIN SLIDING SCALE (NOVOLOG) 1 VIAL SQ SCH ×4 (06:48→22:27)
[2016-08-12] MEDS: FERROUS SO4 325 MG TABLET (FP) PO SCH ×3 (06:48→22:11)
[2016-08-12] MEDS: TAMSULOSIN HCL 0.4 MG CAP.ER.24H (FP) PO SCH (09:38)
[2016-08-12] MEDS: ASPIRIN 81 MG CHEWABLE TABLETS PO SCH ×2 (09:39→22:11)
[2016-08-12] MEDS: ENOXAPARIN NA (PORCINE) 40 MG/0.4 ML DISP.SYRIN SQ SCH (09:39)
[2016-08-12] MEDS: POTASSIUM CHLORIDE TABS 20 MEQ TABLET.ER (FP) PO SCH (09:39)
[2016-08-12] MEDS: FOLIC ACID 1 MG TABLET (FP) PO SCH (09:39)
[2016-08-12] MEDS: MULTIVITAMINS (DAILY MVI) TABLET (FP) PO SCH (09:40)
[2016-08-12] MEDS: NYSTATIN POWDER 100,000 UNITS/GM - 15 GM TOPICAL POWDER TP SCH (09:41)
[2016-08-12] MEDS: COLLAGENASE CLOSTRIDIUM HIST. 30 GRAMS TUBE TP SCH (09:41)
[2016-08-12] MEDS: CYANOCOBALAMIN 1,000 MCG TABLET (FP) PO SCH (09:42)
--- NOTE | 2016-08-12 10:15 | PN ---
Progress Note (short form) - Note Progress Note: s: no sob palps dizzy cp o: Vital Signs Period Temp Pulse Resp BP Sys/Martino Pulse Ox Last 24 Hr 96.4 F-96.9 F 55-78 18-20 96-127/55-66 95-95 nad no jvd, cachectic rrr s1s2 no mrg cta bl nl eff awake, alert, appropriate abd nt nd pos bs no jaundice diaphoresis no le e/c/c Current Medications Generic Name Dose Route Start Last Admin Trade Name Freq PRN Reason Stop Dose Admin Acetaminophen 650 mg 08/09/16 19:44 Tylenol - PO Q4H PRN FEVER OR PAIN Ascorbic Acid 500 mg 08/09/16 22:00 08/12/16 06:48 Vitamin C - PO 500 mg TID [facility] Administration Aspirin 81 mg 08/09/16 22:00 08/12/16 09:39 Asa - PO 81 mg BID [facility] Administration Collagenase 1 applic 08/10/16 10:00 08/12/16 09:41 Santyl - TP 1 applic DAILY [facility] Administration Cyanocobalamin 1,000 mcg 08/10/16 10:00 08/12/16 09:42 Vitamin B12 - PO 1,000 mcg DAILY [facility] Administration Enoxaparin Sodium 40 mg 08/10/16 10:00 08/12/16 09:39 Lovenox - SQ 40 mg DAILY [facility] Administration Ferrous Sulfate 325 mg 08/09/16 22:00 08/12/16 06:48 Feosol - PO 325 mg TID [facility] Administration Folic Acid 1 mg 08/10/16 10:00 08/12/16 09:39 Folic Acid - PO 1 mg DAILY [facility] Administration Guaifenesin 10 ml 08/09/16 19:44 Robitussin - PO Q8H PRN Hydrocortisone Sodium Succinate 50 mg 08/11/16 09:30 08/12/16 09:38 Solu-Cortef - IVPB 50 mg Q8H [facility] Administration Insulin Aspart 1 vial 08/09/16 22:00 08/12/16 06:48 Novolog Vial Sliding Scale - SQ Not Given ACHS [facility] Protocol Levothyroxine Sodium 25 mcg 08/10/16 07:00 08/12/16 06:48 Synthroid - PO 25 mcg DAILY@0700 [facility] Administration Multivitamins/Minerals/Vitamin C 1 tab 08/10/16 10:00 08/12/16 09:40 Tab-A-Vit - PO 1 tab DAILY [facility] Administration Nystatin 1 applic 08/10/16 10:00 08/12/16 09:41 Nystop Powder - TP 1 applic DAILY [facility] Administration Ondansetron HCl 4 mg 08/09/16 19:44 Zofran Injection IVPB Q6H PRN NAUSEA Potassium Chloride 40 meq 08/11/16 12:15 08/12/16 09:39 K-Dur - PO 40 meq DAILY [facility] Administration Potassium Phos/Sodium Phos 1 packet 08/09/16 22:00 08/12/16 06:48 Phos-Nak Packet - PO 1 packet TID [facility] Administration Tamsulosin HCl 0.4 mg 08/10/16 08:30 08/12/16 09:38 Flomax - PO 0.4 mg DAILY@0830 [facility] Administration Vancomycin HCl 125 mg 08/10/16 00:00 08/12/16 06:55 Vancomycin Oral Solution PO 5 ml Q6HPO [facility] Administration CBC,CMP WBC 11.4 K/mm3 (4.0-10.0) H D 08/11/16 05:35 RBC 2.62 M/mm3 (4.00-5.60) L 08/11/16 05:35 Hgb 8.8 GM/dL (11.7-16.9) L 08/11/16 05:35 Hct 26.4 % (35.4-49) L 08/11/16 05:35 MCV 100.8 fl (80-96) H 08/11/16 05:35 MCHC 33.3 g/dl (32.0-35.9) 08/11/16 05:35 RDW 16.7 % (11.9-15.9) H 08/11/16 05:35 Plt Count 218 K/MM3 (134-434) 08/11/16 05:35 MPV 9.6 fl (7.5-11.1) 08/11/16 05:35 Neutrophils % 89.0 % (42.8-82.8) H 08/11/16 05:35 Lymphocytes % 9.0 % (8-40) 08/11/16 05:35 Monocytes % 1.8 % (3.8-10.2) L D 08/11/16 05:35 Eosinophils % 0.0 % (0-4.5) 08/11/16 05:35 Basophils % 0.2 % (0-2.0) 08/11/16 05:35 Differential Comment Manual diff done 07/26/16 19:07 Platelet Estimate Adequate (NORMAL) 07/26/16 19:07 Hypochromic-Microcytic 1+ 07/26/16 19:07 Macrocytosis Few 07/26/16 19:07 Acanthocytes (Spur) 1+ 07/26/16 19:07 Fragmented RBCs 1+ 07/26/16 19:07 Morphology Comment Slide scanned 07/26/16 19:07 Sodium 147 mmol/L (136-145) H 08/11/16 05:35 Potassium 3.4 mmol/L (3.5-5.1) L 08/11/16 05:35 Chloride 115 mmol/L (98-107) H 08/11/16 05:35 Carbon Dioxide 24 mmol/L (21-32) 08/11/16 05:35 Anion Gap 8 (8-16) 08/11/16 05:35 BUN 14 mg/dL (7-18) D 08/11/16 05:35 Creatinine 0.7 mg/dL (0.7-1.3) 08/11/16 05:35 Creat Clearance w eGFR > 60 (>60) 08/11/16 05:35 POC Glucometer 127 UNITS (()) 08/12/16 06:38 Random Glucose 121 mg/dL (74-106) H D 08/11/16 05:35 Serum Osmolality 292 mosm/kg (278-305) 08/04/16 10:40 Lactic Acid 1.3 mmol/L (0.4-2.0) 08/05/16 05:15 Calcium 7.5 mg/dL (8.5-10.1) L 08/11/16 05:35 Phosphorus 3.2 mg/dL (2.5-4.9) 08/11/16 05:35 Magnesium 1.8 mg/dL (1.8-2.4) 08/11/16 05:35 Total Bilirubin 0.2 mg/dL (0.2-1.0) 08/11/16 05:35 AST 23 U/L (15-37) 08/11/16 05:35 ALT 13 U/L (12-78) 08/11/16 05:35 Alkaline Phosphatase 94 U/L (45-117) 08/11/16 05:35 Creatine Kinase 27 IU/L (39-308) L 07/27/16 17:20 Troponin I < 0.02 ng/ml (0.00-0.05) 07/27/16 17:20 Total Protein 5.0 g/dl (6.4-8.2) L 08/11/16 05:35 Albumin 1.5 g/dl (3.4-5.0) L 08/11/16 05:35 Lipase 31 U/L (73-393) L 07/26/16 19:07 TSH 2.19 uIU/ml (0.358-3.74) D 08/11/16 05:35 Free T4 1.12 ng/dl (0.76-1.16) 08/04/16 05:38 Free T3 1.2 pg/ml (2.0-4.4) L 08/04/16 10:57 Cortisol AM Sample 14.0 ug/dL (.) 08/02/16 06:55 tele: sr, sb, pvcs ecg 07/26/16: sr 59, nl intervals, no ischemic changes initial cxr: no chf --> subsequent cxr: bibasilar densities with left pleural effusion. 08/10 cxr: mod rt pl effusion new. chronic lt pl effusion mibi 10/2011: large inferolateral scar, no ischemia, lvef 35% echo 07/2016: tds/limited views: grossly nl lv size/fcn, mild mr a/p: 80 m hx htn, hld, dm, cad/[place] (seen on prior mibi), syst chf, sent from [place] for [place]. sepsis: -cont abx per ID htn: -septic, bp on low side, holding htn meds. cad/mi: -prior mibi showing infarct, no ischemia -no signs acs, trop neg x2 -cp here seems MSK after a recent fall -cont home asa -? not on statin per [place] med list--defer to outpt treatment and review or prior chart in [place] chronic systolic chf, EF normalized on echo here -previously with mod reduced EF on nuclear 2011--? etiology at that time -echo here showing nl overall LVEF -initially no signs vol overload here, then after IVFs had worsening pleural effusions/edema. Nutrition support, now off IVF. bradycardia: -pt with known sinus tashia evaluated with holter on prior admit that showed no pathologic bradycardia -tele here with sr in 40s at times so have stopped bb, avoid meds that cause bradycardia VTach: -10 beat run NSVT on tele 08/09 -replete lytes prn -EF preserved -holding BB due to bradycardia--no compelling indication for bb for NSVT in setting of sepsis, with normal LV fxn 3rd spacing/UE edema/hypoalb -UE elevation as indicated prn
--- NOTE | 2016-08-12 13:49 | PN ---
Progress Note (short form) - Note Progress Note: Renal follow up for Metabolic acidosis and Hypernatremia Pt seen and examined at the bedside no acute complaints less diarrhea today no fever, chills, N/V/D Vital Signs Temperature 96.4 F L 08/12/16 06:00 Pulse Rate 78 08/12/16 06:00 Respiratory Rate 20 08/12/16 06:00 Blood Pressure 117/66 08/12/16 06:00 O2 Sat by Pulse Oximetry (%) 95 08/11/16 22:00 Intake & Output 08/09/16 08/10/16 08/11/16 08/12/16 23:59 23:59 23:59 23:59 Intake Total 1375 610 170 300 Output Total 300 Balance 1375 610 170 0 Weight 163 lb 12.8 oz 165 lb 8 oz 173 lb 6 oz Gen: NAD, on NC CVS: RRR Lungs :Dec Bs at lung bases but no rales, wheeze Abd: soft NT/ND Ext: UE edema, No LE edema Neuro: Awake and alert CBC, BMP 08/11/16 05:35 08/11/16 05:35 no new labs Current Medications Acetaminophen (Tylenol -) 650 mg PO Q4H PRN PRN Reason: FEVER OR PAIN Ascorbic Acid (Vitamin C -) 500 mg PO TID [facility] Last Admin: 08/12/16 13:25 Dose: 500 mg Aspirin (Asa -) 81 mg PO BID [facility] Last Admin: 08/12/16 09:39 Dose: 81 mg Collagenase (Santyl -) 1 applic TP DAILY [facility] Last Admin: 08/12/16 09:41 Dose: 1 applic Cyanocobalamin (Vitamin B12 -) 1,000 mcg PO DAILY [facility] Last Admin: 08/12/16 09:42 Dose: 1,000 mcg Enoxaparin Sodium (Lovenox -) 40 mg SQ DAILY [facility] Last Admin: 08/12/16 09:39 Dose: 40 mg Ferrous Sulfate (Feosol -) 325 mg PO TID [facility] Last Admin: 08/12/16 13:25 Dose: 325 mg Folic Acid (Folic Acid -) 1 mg PO DAILY [facility] Last Admin: 08/12/16 09:39 Dose: 1 mg Guaifenesin (Robitussin -) 10 ml PO Q8H PRN Hydrocortisone Sodium Succinate (Solu-Cortef -) 50 mg IVPB BID [facility] Last Admin: 08/12/16 13:23 Dose: Not Given Insulin Aspart (Novolog Vial Sliding Scale -) 1 vial SQ ACHS [facility] PRN Reason: Protocol Last Admin: 08/12/16 11:50 Dose: Not Given Levothyroxine Sodium (Synthroid -) 25 mcg PO DAILY@0700 [facility] Last Admin: 08/12/16 06:48 Dose: 25 mcg Multivitamins/Minerals/Vitamin C (Tab-A-Vit -) 1 tab PO DAILY [facility] Last Admin: 08/12/16 09:40 Dose: 1 tab Nystatin (Nystop Powder -) 1 applic TP DAILY [facility] Last Admin: 08/12/16 09:41 Dose: 1 applic Ondansetron HCl (Zofran Injection) 4 mg IVPB Q6H PRN PRN Reason: NAUSEA Potassium Chloride (K-Dur -) 40 meq PO DAILY [facility] Last Admin: 08/12/16 09:39 Dose: 40 meq Potassium Phos/Sodium Phos (Phos-Nak Packet -) 1 packet PO TID [facility] Last Admin: 08/12/16 13:25 Dose: 1 packet Tamsulosin HCl (Flomax -) 0.4 mg PO DAILY@0830 [facility] Last Admin: 08/12/16 09:38 Dose: 0.4 mg Vancomycin HCl (Vancomycin Oral Solution) 125 mg PO Q6HPO [facility] Last Admin: 08/12/16 06:55 Dose: 5 ml A/P 80 year old Gentleman with PMhx of AAA, Hypertension, GERD, DM Type 2, Anemia, C. Diff colitis, Hyperlipidemia, CAD with Hx of [place] presented with hypothermia and found to have Sepsis related to UTI and C. Diff Colitis with diarrhea with metabolic acidosis and hypernatremia. #Metabolic acidosis (NAG) secondary to GI losses no new labs today off bicarb supplementation #Hypernatremia oral water intake as tolerated trend Na daily #Sepsis/Hypothermia/Cdiff on IV Flagyl and PO Vanco started on Hydrocortisone IV with improvement in BP #Hypophosphatemia continue oral neutraphos #Hypomagnesemia improved and stable #Anemia Transfuse as per ICU protocol #Hypokalemia KCL 40meq PO daily Medardo Huerta DO
--- NOTE | 2016-08-12 14:28 | PN ---
Progress Note (short form) - Note Progress Note: PULMONARY Denies shortness of breath or chest pain. Last Vital Signs Temp Pulse Resp BP Pulse Ox 96.4 F L 78 20 117/66 95 08/12/16 06:00 08/12/16 06:00 08/12/16 06:00 08/12/16 06:00 08/11/16 22:00 Gen: weak, chronically ill appearing Heart: RRR Lung: scattered rhonchi Abd: soft, nontender Ext: no edema CBC, BMP 08/11/16 05:35 08/11/16 05:35 Active Medications Acetaminophen (Tylenol -) 650 mg PO Q4H PRN PRN Reason: FEVER OR PAIN Ascorbic Acid (Vitamin C -) 500 mg PO TID [facility] Last Admin: 08/12/16 13:25 Dose: 500 mg Aspirin (Asa -) 81 mg PO BID [facility] Last Admin: 08/12/16 09:39 Dose: 81 mg Collagenase (Santyl -) 1 applic TP DAILY [facility] Last Admin: 08/12/16 09:41 Dose: 1 applic Cyanocobalamin (Vitamin B12 -) 1,000 mcg PO DAILY [facility] Last Admin: 08/12/16 09:42 Dose: 1,000 mcg Enoxaparin Sodium (Lovenox -) 40 mg SQ DAILY [facility] Last Admin: 08/12/16 09:39 Dose: 40 mg Ferrous Sulfate (Feosol -) 325 mg PO TID [facility] Last Admin: 08/12/16 13:25 Dose: 325 mg Folic Acid (Folic Acid -) 1 mg PO DAILY [facility] Last Admin: 08/12/16 09:39 Dose: 1 mg Guaifenesin (Robitussin -) 10 ml PO Q8H PRN Hydrocortisone Sodium Succinate (Solu-Cortef -) 50 mg IVPB BID [facility] Last Admin: 08/12/16 13:23 Dose: Not Given Insulin Aspart (Novolog Vial Sliding Scale -) 1 vial SQ ACHS [facility] PRN Reason: Protocol Last Admin: 08/12/16 11:50 Dose: Not Given Levothyroxine Sodium (Synthroid -) 25 mcg PO DAILY@0700 [facility] Last Admin: 08/12/16 06:48 Dose: 25 mcg Multivitamins/Minerals/Vitamin C (Tab-A-Vit -) 1 tab PO DAILY [facility] Last Admin: 08/12/16 09:40 Dose: 1 tab Nystatin (Nystop Powder -) 1 applic TP DAILY [facility] Last Admin: 08/12/16 09:41 Dose: 1 applic Ondansetron HCl (Zofran Injection) 4 mg IVPB Q6H PRN PRN Reason: NAUSEA Potassium Chloride (K-Dur -) 40 meq PO DAILY [facility] Last Admin: 08/12/16 09:39 Dose: 40 meq Potassium Phos/Sodium Phos (Phos-Nak Packet -) 1 packet PO TID [facility] Last Admin: 08/12/16 13:25 Dose: 1 packet Tamsulosin HCl (Flomax -) 0.4 mg PO DAILY@0830 [facility] Last Admin: 08/12/16 09:38 Dose: 0.4 mg Vancomycin HCl (Vancomycin Oral Solution) 125 mg PO Q6HPO [facility] Last Admin: 08/12/16 06:55 Dose: 5 ml A/P UTI C Diff Colitis Pneumonia vs Atelectasis Septic Shock resolving CAD LV Systolic Dysfunction HTN - continue antibiotics - monitor urine output, creatinine - taper hydrocortisone - replete lytes - aspiration precautions - attempt incentive spirometry - DVT prophylaxis
--- NOTE | 2016-08-12 16:09 | PN ---
Progress Note (short form) - Note Progress Note: Feels better Eager to be discharged from hospital No CP/SOB Vital Signs Period Temp Pulse Resp BP Sys/Martino Pulse Ox Last 24 Hr 96.4 F-96.9 F 54-78 18-20 96-117/45-66 95-95 PE: Awake, alert HEENT: EOMOI Neck: Supple, No JVD Lungs: CTA Abd: Benign, BS+ CVS: s1S2 Ext: S/P rt big toe amputation, +edema of legs CMP Sodium 147 mmol/L (136-145) H 08/11/16 05:35 Potassium 3.4 mmol/L (3.5-5.1) L 08/11/16 05:35 Chloride 115 mmol/L (98-107) H 08/11/16 05:35 Carbon Dioxide 24 mmol/L (21-32) 08/11/16 05:35 Anion Gap 8 (8-16) 08/11/16 05:35 BUN 14 mg/dL (7-18) D 08/11/16 05:35 Creatinine 0.7 mg/dL (0.7-1.3) 08/11/16 05:35 Creat Clearance w eGFR > 60 (>60) 08/11/16 05:35 POC Glucometer 147 UNITS (()) 08/12/16 11:49 Random Glucose 121 mg/dL (74-106) H D 08/11/16 05:35 Serum Osmolality 292 mosm/kg (278-305) 08/04/16 10:40 Lactic Acid 1.3 mmol/L (0.4-2.0) 08/05/16 05:15 Calcium 7.5 mg/dL (8.5-10.1) L 08/11/16 05:35 Phosphorus 3.2 mg/dL (2.5-4.9) 08/11/16 05:35 Magnesium 1.8 mg/dL (1.8-2.4) 08/11/16 05:35 Total Bilirubin 0.2 mg/dL (0.2-1.0) 08/11/16 05:35 AST 23 U/L (15-37) 08/11/16 05:35 ALT 13 U/L (12-78) 08/11/16 05:35 Alkaline Phosphatase 94 U/L (45-117) 08/11/16 05:35 Creatine Kinase 27 IU/L (39-308) L 07/27/16 17:20 Troponin I < 0.02 ng/ml (0.00-0.05) 07/27/16 17:20 Total Protein 5.0 g/dl (6.4-8.2) L 08/11/16 05:35 Albumin 1.5 g/dl (3.4-5.0) L 08/11/16 05:35 Lipase 31 U/L (73-393) L 07/26/16 19:07 TSH 2.19 uIU/ml (0.358-3.74) D 08/11/16 05:35 Free T4 1.12 ng/dl (0.76-1.16) 08/04/16 05:38 Free T3 1.2 pg/ml (2.0-4.4) L 08/04/16 10:57 Cortisol AM Sample 14.0 ug/dL (.) 08/02/16 06:55 Current Medications Generic Name Dose Route Start Last Admin Trade Name Fre PRN Reason Stop Dose Admin Acetaminophen 650 mg 08/09/16 19:44 Tylenol - PO Q4H PRN FEVER OR PAIN Ascorbic Acid 500 mg 08/09/16 22:00 08/12/16 13:25 Vitamin C - PO 500 mg TID [facility] Administration Aspirin 81 mg 08/09/16 22:00 08/12/16 09:39 Asa - PO 81 mg BID [facility] Administration Collagenase 1 applic 08/10/16 10:00 08/12/16 09:41 Santyl - TP 1 applic DAILY [facility] Administration Cyanocobalamin 1,000 mcg 08/10/16 10:00 08/12/16 09:42 Vitamin B12 - PO 1,000 mcg DAILY [facility] Administration Enoxaparin Sodium 40 mg 08/10/16 10:00 08/12/16 09:39 Lovenox - SQ 40 mg DAILY [facility] Administration Ferrous Sulfate 325 mg 08/09/16 22:00 08/12/16 13:25 Feosol - PO 325 mg TID [facility] Administration Folic Acid 1 mg 08/10/16 10:00 08/12/16 09:39 Folic Acid - PO 1 mg DAILY [facility] Administration Guaifenesin 10 ml 08/09/16 19:44 Robitussin - PO Q8H PRN Hydrocortisone Sodium Succinate 50 mg 08/12/16 12:31 08/12/16 13:23 Solu-Cortef - IVPB Not Given BID [facility] Insulin Aspart 1 vial 08/09/16 22:00 08/12/16 11:50 Novolog Vial Sliding Scale - SQ Not Given ACHS [facility] Protocol Levothyroxine Sodium 25 mcg 08/10/16 07:00 08/12/16 06:48 Synthroid - PO 25 mcg DAILY@0700 [facility] Administration Multivitamins/Minerals/Vitamin C 1 tab 08/10/16 10:00 08/12/16 09:40 Tab-A-Vit - PO 1 tab DAILY [facility] Administration Nystatin 1 applic 08/10/16 10:00 08/12/16 09:41 Nystop Powder - TP 1 applic DAILY [facility] Administration Ondansetron HCl 4 mg 08/09/16 19:44 Zofran Injection IVPB Q6H PRN NAUSEA Potassium Chloride 40 meq 08/11/16 12:15 08/12/16 09:39 K-Dur - PO 40 meq DAILY [facility] Administration Potassium Phos/Sodium Phos 1 packet 08/09/16 22:00 08/12/16 13:25 Phos-Nak Packet - PO 1 packet TID [facility] Administration Tamsulosin HCl 0.4 mg 08/10/16 08:30 08/12/16 09:38 Flomax - PO 0.4 mg DAILY@0830 [facility] Administration Vancomycin HCl 125 mg 08/10/16 00:00 08/12/16 12:00 Vancomycin Oral Solution PO 5 ml Q6HPO [facility] Administration AP: Hypothyroidism: subclinical. Repeat TSH 2.19 Pt was not on thyroid hormone replacement prior to admission. [facility] medication list reviewed. Continue LT4 25. Bradycardia and hypotension unlikely to be related to the subclinical hypothyroidism Repeat TSH 2.19 Hypotension: Some improvement in blood pressure Morning cortisol was 14 Decrease Hydrocortisone 50 mg Q12 IV today and then to QD tomorow if tolerated. Will do ACTH Stim test once pt is off Hydrocortisone to decide if he needs to be on replacement on discharge Bradycardia: unlikely to be related to her thyroid status or any other endocrine issues Sepsis/Hypothermia UTI DM: BGM QACHS Novolog SS coverage On 1:1 b/o suicidal ideation: Consider Psychiatry referral Problem List - Problems (1) Anemia Code(s): D64.9 - ANEMIA, UNSPECIFIED Qualifiers: Anemia type: other cause Other causes of anemia: other cause, not classified Qualified Code(s): D64.89 - Other specified anemias (2) C. difficile colitis Code(s): A04.7 - ENTEROCOLITIS DUE TO CLOSTRIDIUM DIFFICILE (3) Septic shock Code(s): A41.9 - SEPSIS, UNSPECIFIED ORGANISM R65.21 - SEVERE SEPSIS WITH SEPTIC SHOCK (4) UTI (urinary tract infection) Code(s): N39.0 - URINARY TRACT INFECTION, SITE NOT SPECIFIED (5) Bradycardia Code(s): R00.1 - BRADYCARDIA, UNSPECIFIED (6) Diarrhea Code(s): R19.7 - DIARRHEA, UNSPECIFIED Qualifiers: Diarrhea type: infectious Qualified Code(s): A09 - Infectious gastroenteritis and colitis, unspecified
--- NOTE | 2016-08-12 17:34 | PN ---
Progress Note, Physician History of Present Illness: no new events patient stable - Current Medication List Current Medications: Active Medications Acetaminophen (Tylenol -) 650 mg PO Q4H PRN PRN Reason: FEVER OR PAIN Ascorbic Acid (Vitamin C -) 500 mg PO TID [facility] Last Admin: 08/12/16 13:25 Dose: 500 mg Aspirin (Asa -) 81 mg PO BID [facility] Last Admin: 08/12/16 09:39 Dose: 81 mg Collagenase (Santyl -) 1 applic TP DAILY [facility] Last Admin: 08/12/16 09:41 Dose: 1 applic Cyanocobalamin (Vitamin B12 -) 1,000 mcg PO DAILY [facility] Last Admin: 08/12/16 09:42 Dose: 1,000 mcg Enoxaparin Sodium (Lovenox -) 40 mg SQ DAILY [facility] Last Admin: 08/12/16 09:39 Dose: 40 mg Ferrous Sulfate (Feosol -) 325 mg PO TID [facility] Last Admin: 08/12/16 13:25 Dose: 325 mg Folic Acid (Folic Acid -) 1 mg PO DAILY [facility] Last Admin: 08/12/16 09:39 Dose: 1 mg Guaifenesin (Robitussin -) 10 ml PO Q8H PRN Hydrocortisone Sodium Succinate (Solu-Cortef -) 50 mg IVPB BID [facility] Last Admin: 08/12/16 13:23 Dose: Not Given Insulin Aspart (Novolog Vial Sliding Scale -) 1 vial SQ ACHS [facility] PRN Reason: Protocol Last Admin: 08/12/16 11:50 Dose: Not Given Levothyroxine Sodium (Synthroid -) 25 mcg PO DAILY@0700 [facility] Last Admin: 08/12/16 06:48 Dose: 25 mcg Multivitamins/Minerals/Vitamin C (Tab-A-Vit -) 1 tab PO DAILY [facility] Last Admin: 08/12/16 09:40 Dose: 1 tab Nystatin (Nystop Powder -) 1 applic TP DAILY [facility] Last Admin: 08/12/16 09:41 Dose: 1 applic Ondansetron HCl (Zofran Injection) 4 mg IVPB Q6H PRN PRN Reason: NAUSEA Potassium Chloride (K-Dur -) 40 meq PO DAILY [facility] Last Admin: 08/12/16 09:39 Dose: 40 meq Potassium Phos/Sodium Phos (Phos-Nak Packet -) 1 packet PO TID [facility] Last Admin: 08/12/16 13:25 Dose: 1 packet Tamsulosin HCl (Flomax -) 0.4 mg PO DAILY@0830 [facility] Last Admin: 08/12/16 09:38 Dose: 0.4 mg Vancomycin HCl (Vancomycin Oral Solution) 125 mg PO Q6HPO [facility] Last Admin: 08/12/16 12:00 Dose: 5 ml - Objective Vital Signs: Vital Signs Temperature 96.4 F L 08/12/16 06:00 Pulse Rate 54 L 08/12/16 14:00 Respiratory Rate 20 08/12/16 14:00 Blood Pressure 108/45 08/12/16 14:00 O2 Sat by Pulse Oximetry (%) 95 08/11/16 22:00 Constitutional: Yes: No Distress, Calm Cardiovascular: Yes: Bradycardia Respiratory: Yes: Regular, CTA Bilaterally Gastrointestinal: Yes: Normal Bowel Sounds, Soft Musculoskeletal: Yes: WNL Extremities: Yes: WNL Neurological: Yes: Alert, Oriented Labs: CBC, BMP 08/11/16 05:35 08/11/16 05:35 INR, PTT INR 1.17 (0.82-1.09) H 07/26/16 19:07 Assessment/Plan Problem List - Problems (1) Septic shock Code(s): A41.9 - SEPSIS, UNSPECIFIED ORGANISM R65.21 - SEVERE SEPSIS WITH SEPTIC SHOCK (2) HCAP (healthcare-associated pneumonia) Code(s): J18.9 - PNEUMONIA, UNSPECIFIED ORGANISM (3) UTI (urinary tract infection) Code(s): N39.0 - URINARY TRACT INFECTION, SITE NOT SPECIFIED (4) Diarrhea Code(s): R19.7 - DIARRHEA, UNSPECIFIED Qualifiers: Diarrhea type: unspecified type Qualified Code(s): R19.7 - Diarrhea, unspecified (5) Chest pain Code(s): R07.9 - CHEST PAIN, UNSPECIFIED (6) Anemia Code(s): D64.9 - ANEMIA, UNSPECIFIED Qualifiers: Anemia type: other cause Other causes of anemia: other cause, not classified Qualified Code(s): D64.89 - Other specified anemias (7) Chronic systolic CHF (congestive heart failure) Code(s): I50.22 - CHRONIC SYSTOLIC (CONGESTIVE) HEART FAILURE (8) CAD (coronary artery disease) Code(s): I25.10 - ATHSCL HEART DISEASE OF [place] CORONARY ARTERY W/O ANG PCTRS (9) Dehydration Code(s): E86.0 - DEHYDRATION (10) HTN (hypertension) Code(s): I10 - ESSENTIAL (PRIMARY) HYPERTENSION (11) Hypernatremia Code(s): E87.0 - HYPEROSMOLALITY AND HYPERNATREMIA 12 hypothermia 13 cdiff plan conitnue current mgmt stable off of abx monitor temp continue oral vanco
--- NOTE | 2016-08-12 19:49 | PN ---
Progress Note (short form) - Note Progress Note: O/E Patient seen and examined. Patient reported to have suicidal thoughts last night. He reported to the nurse that " He want to " 1:[address] Spoke with patient in detail this morning and he seems fine. He is frustrated with the hospital stay and wants to be discharged as soon as possible. Denies chest pain, shortness of breath, palpitation or dizziness. Afebrile. Vital Signs Period Temp Pulse Resp BP Sys/Martino Pulse Ox Last 24 Hr 95.7 F-96.9 F 54-81 18-20 96-117/45-66 95-95 Heartt regular Lungs clear' Abd soft Ext no edema Not cold Current Medications Acetaminophen (Tylenol -) 650 mg PO Q4H PRN PRN Reason: FEVER OR PAIN Ascorbic Acid (Vitamin C -) 500 mg PO TID [facility] Last Admin: 08/11/16 14:14 Dose: 500 mg Aspirin (Asa -) 81 mg PO BID [facility] Last Admin: 08/11/16 09:46 Dose: 81 mg Collagenase (Santyl -) 1 applic TP DAILY [facility] Last Admin: 08/11/16 10:09 Dose: 1 applic Cyanocobalamin (Vitamin B12 -) 1,000 mcg PO DAILY [facility] Last Admin: 08/11/16 09:46 Dose: 1,000 mcg Enoxaparin Sodium (Lovenox -) 40 mg SQ DAILY [facility] Last Admin: 08/11/16 09:45 Dose: 40 mg Ferrous Sulfate (Feosol -) 325 mg PO TID [facility] Last Admin: 08/11/16 14:14 Dose: 325 mg Folic Acid (Folic Acid -) 1 mg PO DAILY [facility] Last Admin: 08/11/16 09:46 Dose: 1 mg Guaifenesin (Robitussin -) 10 ml PO Q8H PRN Hydrocortisone Sodium Succinate (Solu-Cortef -) 50 mg IVPB Q8H [facility] Last Admin: 08/11/16 09:45 Dose: 50 mg Insulin Aspart (Novolog Vial Sliding Scale -) 1 vial SQ ACHS [facility] PRN Reason: Protocol Last Admin: 08/11/16 16:17 Dose: Not Given Levothyroxine Sodium (Synthroid -) 25 mcg PO DAILY@0700 [facility] Last Admin: 08/11/16 06:11 Dose: 25 mcg Multivitamins/Minerals/Vitamin C (Tab-A-Vit -) 1 tab PO DAILY [facility] Last Admin: 08/11/16 09:46 Dose: 1 tab Nystatin (Nystop Powder -) 1 applic TP DAILY [facility] Last Admin: 08/11/16 10:07 Dose: 1 applic Ondansetron HCl (Zofran Injection) 4 mg IVPB Q6H PRN PRN Reason: NAUSEA Potassium Chloride (K-Dur -) 40 meq PO DAILY [facility] Last Admin: 08/11/16 14:14 Dose: 40 meq Potassium Phos/Sodium Phos (Phos-Nak Packet -) 1 packet PO TID [facility] Last Admin: 08/11/16 14:14 Dose: 1 packet Tamsulosin HCl (Flomax -) 0.4 mg PO DAILY@0830 [facility] Last Admin: 08/11/16 08:46 Dose: 0.4 mg Vancomycin HCl (Vancomycin Oral Solution) 125 mg PO Q6HPO [facility] Last Admin: 08/11/16 11:43 Dose: 5 ml CBC, BMP 08/11/16 05:35 08/11/16 05:35 Microbiology 08/02/16 07:15 Blood - Peripheral Venous Blood Culture - Preliminary NO GROWTH OBTAINED AFTER 24 HOURS, INCUBATION TO CONTINUE FOR 4 DAYS. 08/02/16 06:55 Blood - Peripheral Venous Blood Culture - Preliminary NO GROWTH OBTAINED AFTER 24 HOURS, INCUBATION TO CONTINUE FOR 4 DAYS. A&P (1) C diff colitis Assessment/Plan: - Still with profuse diarrhea -Continue oral vancomycin. Code(s): R19.7 - DIARRHEA, UNSPECIFIED Qualifiers: Diarrhea type: unspecified type Qualified Code(s): R19.7 - Diarrhea, unspecified (2) Hypothermia Sepsis protocol. (3) Anemia Assessment/Plan: -chronic and stable Code(s): D64.9 - ANEMIA, UNSPECIFIED Qualifiers: Anemia type: other cause Other causes of anemia: other cause, not classified Qualified Code(s): D64.89 - Other specified anemias (4) Chronic systolic CHF (congestive heart failure) Assessment/Plan: -not in exacerbation Code(s): I50.22 - CHRONIC SYSTOLIC (CONGESTIVE) HEART FAILURE (5) CAD (coronary artery disease) -continue home regimen -cardiology following Code(s): I25.10 - ATHSCL HEART DISEASE OF [place] CORONARY ARTERY W/O ANG PCTRS (6) HTN (hypertension) Assessment/Plan: Code(s): I10 - ESSENTIAL (PRIMARY) HYPERTENSION Improvemen in bllod pressure with hydrocortisone. systolic maintaining above 100. Hydrocortisone initiated with improvement in BP. (7) Hypernatremia Assessment/Plan: - Encourage free water intake. - Renal follow up appreciated. Code(s): E87.0 - HYPEROSMOLALITY AND HYPERNATREMIA 8) Bradycardia Cardiology follow up appreciated. 9) Hypothyroidism Repeat TSh 2.19 Continue levothyroxine 25 mcg daily. Endocrine consult reviewed and appreciated. 10) Hypokalemia Potassium repleted 11) Depression/suicidal thoughts Psych consulted. To maintain 1:1 watch.
--- NOTE | 2016-08-12 22:40 | PN ---
Mental Health Exam - Mental Status Exam Alert and Oriented to: Time, Place, Person Cognitive Function: Grossly Intact Patient Appearance: Well Groomed Mood: Fearful, Anxious, Apprehensive Affect: Appropriate Patient Behavior: Talkative Speech Pattern: Clear Voice Loudness: Mildly Soft/Quiet Thought Process: Intact Thought Disorder: Not Present Hallucinations: None Suicidal Ideation: None, No Plan (wrote word "suicidal in his bible last PM") Homicidal Ideation: None Insight/Judgement: Good Sleep: Poorly Appetite: Fair Muscle strength/Tone: Normal Gait/Station: Deferred
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
[2016-08-13 07:45] LABS: BASOPHIL 0.1 % (0-2.0); MCH 33.3 pg (25.7-33.7); MCHC 32.9 g/dl (32.0-35.9); MEAN CELL VOLUME 101.4 fl (80-96); MEAN PLT VOLUME 9.8 fl (7.5-11.1); NEUTROPHILS 92.3 % (42.8-82.8); PLATELET COUNT 179 K/MM3 (134-434); RDW 16.6 % (11.9-15.9); WHITE BLOOD COUNT 14.7 K/mm3 (4.0-10.0)
[2016-08-13] MEDS: ASCORBIC ACID 500 MG TABLET (FP) PO SCH ×3 (07:57→21:44)
[2016-08-13] MEDS: LEVOTHYROXINE NA 25 MCG TABLET (FP) PO SCH (07:57)
[2016-08-13] MEDS: VANCOMYCIN 250 MG/5 ML ORAL SOLUTION PO SCH ×4 (07:58→17:45)
[2016-08-13] MEDS: NAPH,MB-DB/K PH,MBDB POWDER PACKET PO SCH ×3 (07:58→21:45)
[2016-08-13] MEDS: FERROUS SO4 325 MG TABLET (FP) PO SCH ×3 (07:59→21:44)
[2016-08-13 08:07] LABS: ALBUMIN 1.6 g/dl (3.4-5.0); ANION GAP 9 (8-16); BILIRUBIN,TOTAL 0.3 mg/dL (0.2-1.0); CO2 22 mmol/L (21-32); COCKROFT - GAULT 75.96; CREATININE 0.8 mg/dL (0.7-1.3); GLUCOSE,RANDOM 97 mg/dL (74-106); MAGNESIUM 1.9 mg/dL (1.8-2.4); PHOSPHOROUS 2.6 mg/dL (2.5-4.9); SGOT/AST 30 U/L (15-37); SGPT/ALT 17 U/L (12-78); TOT PROT 5.1 g/dl (6.4-8.2)
[2016-08-13 08:08] LABS: ALK PHOS 97 U/L (45-117)
--- NOTE | 2016-08-13 08:44 | PN ---
Progress Note (short form) - Note Progress Note: O/E Patient seen and examined. In better mood today. Smiling. Interactive in conversation. Denies chest pain, shortness of breath, palpitation or dizziness. Afebrile. Vital Signs Period Temp Pulse Resp BP Sys/Martino Pulse Ox Last 24 Hr 95.7 F-97.5 F 43-81 18-20 100-110/45-64 95 Heartt regular Lungs clear' Abd soft Ext no edema Not cold Current Medications Acetaminophen (Tylenol -) 650 mg PO Q4H PRN PRN Reason: FEVER OR PAIN Ascorbic Acid (Vitamin C -) 500 mg PO TID [facility] Last Admin: 08/11/16 14:14 Dose: 500 mg Aspirin (Asa -) 81 mg PO BID [facility] Last Admin: 08/11/16 09:46 Dose: 81 mg Collagenase (Santyl -) 1 applic TP DAILY [facility] Last Admin: 08/11/16 10:09 Dose: 1 applic Cyanocobalamin (Vitamin B12 -) 1,000 mcg PO DAILY [facility] Last Admin: 08/11/16 09:46 Dose: 1,000 mcg Enoxaparin Sodium (Lovenox -) 40 mg SQ DAILY [facility] Last Admin: 08/11/16 09:45 Dose: 40 mg Ferrous Sulfate (Feosol -) 325 mg PO TID [facility] Last Admin: 08/11/16 14:14 Dose: 325 mg Folic Acid (Folic Acid -) 1 mg PO DAILY [facility] Last Admin: 08/11/16 09:46 Dose: 1 mg Guaifenesin (Robitussin -) 10 ml PO Q8H PRN Hydrocortisone Sodium Succinate (Solu-Cortef -) 50 mg IVPB Q8H [facility] Last Admin: 08/11/16 09:45 Dose: 50 mg Insulin Aspart (Novolog Vial Sliding Scale -) 1 vial SQ ACHS [facility] PRN Reason: Protocol Last Admin: 08/11/16 16:17 Dose: Not Given Levothyroxine Sodium (Synthroid -) 25 mcg PO DAILY@0700 [facility] Last Admin: 08/11/16 06:11 Dose: 25 mcg Multivitamins/Minerals/Vitamin C (Tab-A-Vit -) 1 tab PO DAILY [facility] Last Admin: 08/11/16 09:46 Dose: 1 tab Nystatin (Nystop Powder -) 1 applic TP DAILY [facility] Last Admin: 08/11/16 10:07 Dose: 1 applic Ondansetron HCl (Zofran Injection) 4 mg IVPB Q6H PRN PRN Reason: NAUSEA Potassium Chloride (K-Dur -) 40 meq PO DAILY [facility] Last Admin: 08/11/16 14:14 Dose: 40 meq Potassium Phos/Sodium Phos (Phos-Nak Packet -) 1 packet PO TID [facility] Last Admin: 08/11/16 14:14 Dose: 1 packet Tamsulosin HCl (Flomax -) 0.4 mg PO DAILY@0830 [facility] Last Admin: 08/11/16 08:46 Dose: 0.4 mg Vancomycin HCl (Vancomycin Oral Solution) 125 mg PO Q6HPO [facility] Last Admin: 08/11/16 11:43 Dose: 5 ml CBC, BMP 08/13/16 06:30 08/13/16 06:30 Microbiology 08/02/16 07:15 Blood - Peripheral Venous Blood Culture - Preliminary NO GROWTH OBTAINED AFTER 24 HOURS, INCUBATION TO CONTINUE FOR 4 DAYS. 08/02/16 06:55 Blood - Peripheral Venous Blood Culture - Preliminary NO GROWTH OBTAINED AFTER 24 HOURS, INCUBATION TO CONTINUE FOR 4 DAYS. A&P (1) C diff colitis Assessment/Plan: - Improving. -Continue oral vancomycin. Code(s): R19.7 - DIARRHEA, UNSPECIFIED Qualifiers: Diarrhea type: unspecified type Qualified Code(s): R19.7 - Diarrhea, unspecified (2) Hypothermia Sepsis protocol. (3) Anemia Assessment/Plan: -chronic and stable Code(s): D64.9 - ANEMIA, UNSPECIFIED Qualifiers: Anemia type: other cause Other causes of anemia: other cause, not classified Qualified Code(s): D64.89 - Other specified anemias (4) Chronic systolic CHF (congestive heart failure) Assessment/Plan: -not in exacerbation Code(s): I50.22 - CHRONIC SYSTOLIC (CONGESTIVE) HEART FAILURE (5) CAD (coronary artery disease) -continue home regimen -cardiology following Code(s): I25.10 - ATHSCL HEART DISEASE OF [place] CORONARY ARTERY W/O ANG PCTRS (6) HTN (hypertension) Assessment/Plan: Code(s): I10 - ESSENTIAL (PRIMARY) HYPERTENSION Improvemen in blood pressure with hydrocortisone. systolic maintaining above 100. Hydrocortisone initiated with improvement in BP. (7) Hypernatremia Assessment/Plan: - Encourage free water intake. - Renal follow up appreciated. Code(s): E87.0 - HYPEROSMOLALITY AND HYPERNATREMIA 8) Bradycardia Cardiology follow up appreciated. 9) Hypothyroidism Repeat TSh 2.19 Continue levothyroxine 25 mcg daily. Endocrine consult reviewed and appreciated. 10) Hypokalemia Potassium repleted 11) Depression/suicidal thoughts Psych consulted. To maintain 1:1 watch. 12) Leukocytosis WBC going up. Clinically improving. Unlikely infection related. Most likely hydrocortisone induced. Will closely monitor.
--- NOTE | 2016-08-13 09:24 | PN ---
Progress Note (short form) - Note Progress Note: C/O cough No fever or chlls Vital Signs Period Temp Pulse Resp BP Sys/Martino Pulse Ox Last 24 Hr 95.7 F-97.5 F 43-81 18-20 100-110/45-64 95 PE: Awake, alert HEENT: EOMOI Neck: Supple, No JVD Lungs: CTA Abd: Benign, BS+ CVS: s1S2 Ext: S/P rt big toe amputation, +edema of feet CMP Sodium 149 mmol/L (136-145) H 08/13/16 06:30 Potassium 3.3 mmol/L (3.5-5.1) L 08/13/16 06:30 Chloride 118 mmol/L (98-107) H 08/13/16 06:30 Carbon Dioxide 22 mmol/L (21-32) 08/13/16 06:30 Anion Gap 9 (8-16) 08/13/16 06:30 BUN 22 mg/dL (7-18) H D 08/13/16 06:30 Creatinine 0.8 mg/dL (0.7-1.3) 08/13/16 06:30 Creat Clearance w eGFR > 60 (>60) 08/13/16 06:30 POC Glucometer 135 UNITS (()) 08/12/16 22:26 Random Glucose 97 mg/dL (74-106) 08/13/16 06:30 Serum Osmolality 292 mosm/kg (278-305) 08/04/16 10:40 Lactic Acid 1.3 mmol/L (0.4-2.0) 08/05/16 05:15 Calcium 8.0 mg/dL (8.5-10.1) L 08/13/16 06:30 Phosphorus 2.6 mg/dL (2.5-4.9) 08/13/16 06:30 Magnesium 1.9 mg/dL (1.8-2.4) 08/13/16 06:30 Total Bilirubin 0.3 mg/dL (0.2-1.0) D 08/13/16 06:30 AST 30 U/L (15-37) D 08/13/16 06:30 ALT 17 U/L (12-78) D 08/13/16 06:30 Alkaline Phosphatase 97 U/L (45-117) 08/13/16 06:30 Creatine Kinase 27 IU/L (39-308) L 07/27/16 17:20 Troponin I < 0.02 ng/ml (0.00-0.05) 07/27/16 17:20 Total Protein 5.1 g/dl (6.4-8.2) L 08/13/16 06:30 Albumin 1.6 g/dl (3.4-5.0) L 08/13/16 06:30 Lipase 31 U/L (73-393) L 07/26/16 19:07 TSH 2.19 uIU/ml (0.358-3.74) D 08/11/16 05:35 Free T4 1.12 ng/dl (0.76-1.16) 08/04/16 05:38 Free T3 1.2 pg/ml (2.0-4.4) L 08/04/16 10:57 Cortisol AM Sample 14.0 ug/dL (.) 08/02/16 06:55 Current Medications Generic Name Dose Route Start Last Admin Trade Name Jolie PRN Reason Stop Dose Admin Acetaminophen 650 mg 08/09/16 19:44 Tylenol - PO Q4H PRN FEVER OR PAIN Ascorbic Acid 500 mg 08/09/16 22:00 08/13/16 07:57 Vitamin C - PO 500 mg TID [facility] Administration Aspirin 81 mg 08/09/16 22:00 08/12/16 22:11 Asa - PO 81 mg BID [facility] Administration Collagenase 1 applic 08/10/16 10:00 08/12/16 09:41 Santyl - TP 1 applic DAILY [facility] Administration Cyanocobalamin 1,000 mcg 08/10/16 10:00 08/12/16 09:42 Vitamin B12 - PO 1,000 mcg DAILY [facility] Administration Enoxaparin Sodium 40 mg 08/10/16 10:00 08/12/16 09:39 Lovenox - SQ 40 mg DAILY [facility] Administration Ferrous Sulfate 325 mg 08/09/16 22:00 08/13/16 07:59 Feosol - PO 325 mg TID [facility] Administration Folic Acid 1 mg 08/10/16 10:00 08/12/16 09:39 Folic Acid - PO 1 mg DAILY [facility] Administration Guaifenesin 10 ml 08/09/16 19:44 Robitussin - PO Q8H PRN Hydrocortisone Sodium Succinate 50 mg 08/12/16 12:31 06/08/17 22:12 Solu-Cortef - IVPB 50 mg BID [facility] Administration Insulin Aspart 1 vial 08/09/16 22:00 08/12/16 22:27 Novolog Vial Sliding Scale - SQ Not Given ACHS [facility] Protocol Levothyroxine Sodium 25 mcg 08/10/16 07:00 08/13/16 07:57 Synthroid - PO 25 mcg DAILY@0700 [facility] Administration Multivitamins/Minerals/Vitamin C 1 tab 08/10/16 10:00 08/12/16 09:40 Tab-A-Vit - PO 1 tab DAILY [facility] Administration Nystatin 1 applic 08/10/16 10:00 08/12/16 09:41 Nystop Powder - TP 1 applic DAILY [facility] Administration Ondansetron HCl 4 mg 08/09/16 19:44 Zofran Injection IVPB Q6H PRN NAUSEA Potassium Chloride 40 meq 08/11/16 12:15 08/12/16 09:39 K-Dur - PO 40 meq DAILY [facility] Administration Potassium Phos/Sodium Phos 1 packet 08/09/16 22:00 08/13/16 07:58 Phos-Nak Packet - PO 1 packet TID [facility] Administration Tamsulosin HCl 0.4 mg 08/10/16 08:30 08/12/16 09:38 Flomax - PO 0.4 mg DAILY@0830 [facility] Administration Vancomycin HCl 125 mg 08/10/16 00:00 08/13/16 07:58 Vancomycin Oral Solution PO 125 ml Q6HPO [facility] Administration AP: Hypothyroidism: subclinical. Repeat TSH 2.19 Pt was not on thyroid hormone replacement prior to admission. [facility] medication list reviewed. Continue LT4 25. Bradycardia and hypotension unlikely to be related to the subclinical hypothyroidism Repeat TSH 2.19 Hypotension: Some improvement in blood pressure Morning cortisol was 14 Decrease Hydrocortisone 50 mg QD IV today if tolerated. Will do ACTH Stim test tomorrow. cortisol level to be drawn at 9 am. Cortrosyn 0.25mg I.m at 9:15 a.m. and repeat cortisol at 10:00 a.m. Bradycardia: unlikely to be related to her thyroid status or any other endocrine issues Sepsis/Hypothermia UTI DM: BGM QACHS Novolog SS coverage On 1:1 b/o suicidal ideation: Psychiatry consult noted Problem List - Problems (1) Anemia Code(s): D64.9 - ANEMIA, UNSPECIFIED Qualifiers: Anemia type: other cause Other causes of anemia: other cause, not classified Qualified Code(s): D64.89 - Other specified anemias (2) C. difficile colitis Code(s): A04.7 - ENTEROCOLITIS DUE TO CLOSTRIDIUM DIFFICILE (3) Septic shock Code(s): A41.9 - SEPSIS, UNSPECIFIED ORGANISM R65.21 - SEVERE SEPSIS WITH SEPTIC SHOCK (4) UTI (urinary tract infection) Code(s): N39.0 - URINARY TRACT INFECTION, SITE NOT SPECIFIED (5) Bradycardia Code(s): R00.1 - BRADYCARDIA, UNSPECIFIED (6) Diarrhea Code(s): R19.7 - DIARRHEA, UNSPECIFIED Qualifiers: Diarrhea type: infectious Qualified Code(s): A09 - Infectious gastroenteritis and colitis, unspecified
--- NOTE | 2016-08-13 10:11 | PN ---
Progress Note (short form) - Note Progress Note: PULMONARY PALE/CHRONICALLY ILL IN APPEARANCE AWAKE/ALERT CONGESTED COUGH VSS/AFEBRILE ANICTERIC DISTANT B/L BREATH SOUNDS S1S2 SOFT NO EDEMA/ LABS/MEDS/NOTES/IMAGING REVIEWED UTI C Diff Colitis Pleural effusions r/o aspiration Septic Shock resolving CAD LV Systolic Dysfunction HTN - continue antibiotics - monitor urine output, creatinine - taper hydrocortisone - replete lytes - aspiration precautions - attempt incentive spirometry - DVT prophylaxis - Swallow evaluation Kika HALL MD
[2016-08-13] MEDS: ASPIRIN 81 MG CHEWABLE TABLETS PO SCH ×2 (10:40→21:44)
[2016-08-13] MEDS: TAMSULOSIN HCL 0.4 MG CAP.ER.24H (FP) PO SCH (10:40)
[2016-08-13] MEDS: FOLIC ACID 1 MG TABLET (FP) PO SCH (10:40)
[2016-08-13] MEDS: ENOXAPARIN NA (PORCINE) 40 MG/0.4 ML DISP.SYRIN SQ SCH (10:41)
[2016-08-13] MEDS: MULTIVITAMINS (DAILY MVI) TABLET (FP) PO SCH (10:41)
[2016-08-13] MEDS: HYDROCORTISONE SOD SUCCINATE 100 MG/2 ML VIAL IVPB SCH (10:41)
[2016-08-13] MEDS: CYANOCOBALAMIN 1,000 MCG TABLET (FP) PO SCH (10:41)
[2016-08-13] MEDS: NYSTATIN POWDER 100,000 UNITS/GM - 15 GM TOPICAL POWDER TP SCH (10:43)
[2016-08-13] MEDS: COLLAGENASE CLOSTRIDIUM HIST. 30 GRAMS TUBE TP SCH (10:43)
--- NOTE | 2016-08-13 10:50 | CONSULT ---
Admitting History and Physical - Primary Care Physician PCP: Jean Pierre Méndez - Admission History of Present Illness: 80 year old male with a PMH of AAA, HTN, DM type 2, hypothyroidism, anemia, h/o of C.Diff in March 2016, CAD who was brought to the hospital from [facility] for hypothermia. Selected Entries 08/11/16 08/11/16 08/12/16 15:14 19:45 02:00 Breakfast 50% Lunch 50% Supper 50% Temperature 96.6 F L 08/12/16 08/12/16 08/12/16 06:00 19:46 21:15 Breakfast Lunch Supper 25% Temperature 96.4 F L 95.7 F L 08/13/16 08/13/16 01:45 06:00 Breakfast Lunch Supper Temperature 97.5 F L 97.5 F L Laboratory Tests 08/10/16 08/11/16 08/13/16 07:30 05:35 06:30 Sodium 148 H 147 H 149 H Referred by pulmonary for a swallowing evaluation. March 2016 -Sp/sw Recommendations - Speech Evaluation, Impression/Plan Impression: a x o. Slow to respond but good historian. Denies weight loss. Feels the scale is wrong. Swallow mildly delayed but functional. - Dysphagia Impressions/Plan Dysphagia Impressions: Mild Impairment, Ongoing Evaluation Recommendations: Other (RD/menu selection) - Recommendations Diet Consistency: Dysphagia Minced, 1 - 2 Soft Items (wants eggs, park.) Medication Administration: Whole with water Liquids: Thin Liquids Per RD 08/11 "Presents with impaired nutrient utilization r/t GI loss/C. Diff evidenced by hypokalemia--40meq po received--Banatrol is effective for C. Diff and loose stools; Does not inhibit gut motility. Hypernatremia r/t dehydration through D. Ciff-free H20 encouraged Presents with severe malnutrition in the context of chronic illness r/t C. Diff , 15#(10%) wt loss in th px 5 months, loss of muscle mass (deep hollowing/ scooping of bilateral temporals, deep hollowing btween neck/clavicels, bony prominence of sternoclavicular joint, prominent superspinatus & infraspinatus, slight squaring of Deltoid muscle, and loss of bicep muscle), a prominent brow and loss of fat around the orbital region (hollow and sunken eyes with a prominent zygomatic arch), and depressions between ribs apparent" History Source: Patient, Medical Record Limitations to Obtaining History: No Limitations - Past Medical History Cardiovascular: Yes: CAD, CHF, HTN, Hyperlipdemia, NE Endocrine: Yes: Diabetes Mellitus - Past Surgical History Past Surgical History: Yes: Hernia Repair - Smoking History Smoking history: Unknown if ever smoked Have you smoked in the past 12 months: No Aproximately how many cigarettes per day: 0 If you are a former smoker, when did you quit?: many yrs ago - Alcohol/Substance Use Hx Alcohol Use: No History of Substance Use: reports: None - Social History ADL: Support Services History of Recent Travel: No History - Admission Reason For Visit: HYPOXIA/PNEUMONIA/DIAB MELLI TYPE II - Diagnostics X-ray: Report Reviewed - General Mental Status: Alert and Oriented, Awake and Alert, Able to Follow Commands Attention: Intact Ability to Follow Directions: Good Head/Neck Control: WFL - Hearing Hearing: Normal Speech Evaluation - Communication Primary Language: TURKMEN Oral Expression Ability: Yes: Mild Impairment - Speech Production Able to Make Needs Known: Yes: Mildly Impaired Intelligibility: Yes: Mildly Impaired - Speech Characteristics Voice Loudness: Mildly Soft/Quiet Voice Pitch: Yes: Normal Voice Phonatory-based Quality: Yes: Dysphonia, Vocal Wetness Speech Clarity: < 75% Nasal Resonance: Hyponasal/Denasal Articulation: Yes: Imprecise - Language/Auditory Comprehension Follows: Yes: 1 Stage Simple Commands Observation: Able to respond to yes/no queries: Yes, Yes/No Confusion: No - Language/Verbal Expression Functional Communication Status: Yes: Mildly Impaired - Swallow Evaluation/Bedside Assessment Current Nutritional Intake: Regular (chopped), Thin Liquids Oral Secretions: Yes: R/O Candidiasis (white patches on inside of cheeks and tongue. Congested. Weak cough.Unable to expectorate phlegm.) Dentition: Yes: Edentulous Facial Symmetry at Rest: Symmetrical Facial Symmetry on Retraction: Symmetrical Facial Movement: Controlled Jaw Position: Open at Rest Pucker Lips: Normal Smile: Normal Lingual Movement: Normal, Symmetric Lingual Speed of Movement: Reduced Lingual Movement Strgth Against Opposition: Reduced Lingual Movement Characteristics: Normal Laryngeal Movement: Reduced Excursion, Labored,delay initiation, Reduced Velocity Rate of Intake: Slow/Holding Labial Seal: WFL (weak) Chewing: Impaired Oral Prep Time: Increased A-P Transit: Impaired Timing of Swallow: Delayed Coughing/Throat Clear: Yes (thin liquid) Recommendations - Speech Evaluation, Impression/Plan Impression: White patches on inside of cheeks and tongue.r/o thrush. Congested. Weak cough.Unable to expectorate phlegm. Responsive cough with thin liquid. Very delayed, labored swallow onset. Weak laryngeal elevation and reduced excursion. Case discussed with PMD/Pulm - Dysphagia Impressions/Plan Swallowing Skills: Impaired Dysphagia Impressions: Moderate Impairment, Suspect Aspiration *Silent aspiration: cannot be R/O at bedside Recommendations: Modified Barium Swallow, Other (r/o thrush) - Recommendations Diet Consistency: Dysphagia Pureed Medication Administration: Crushed with applesauce Liquids: [place] Thick
--- NOTE | 2016-08-13 12:13 | PN ---
Progress Note (short form) - Note Progress Note: s: no sob palps dizzy cp o: Vital Signs Period Temp Pulse Resp BP Sys/Martino Pulse Ox Last 24 Hr 95.7 F-97.5 F 43-81 18-20 100-110/45-64 95 nad no jvd, cachectic rrr s1s2 no mrg cta bl nl eff awake, alert, appropriate abd nt nd pos bs no jaundice diaphoresis no le e/c/c Current Medications Generic Name Dose Route Start Last Admin Trade Name Freq PRN Reason Stop Dose Admin Acetaminophen 650 mg 08/09/16 19:44 Tylenol - PO Q4H PRN FEVER OR PAIN Ascorbic Acid 500 mg 08/09/16 22:00 08/13/16 07:57 Vitamin C - PO 500 mg TID OLESYA Administration Aspirin 81 mg 08/09/16 22:00 08/13/16 10:40 Asa - PO 81 mg BID OLESYA Administration Collagenase 1 applic 08/10/16 10:00 08/13/16 10:43 Santyl - TP 1 applic DAILY OLESYA Administration Cyanocobalamin 1,000 mcg 08/10/16 10:00 08/13/16 10:41 Vitamin B12 - PO 1,000 mcg DAILY OLESYA Administration Enoxaparin Sodium 40 mg 08/10/16 10:00 08/13/16 10:41 Lovenox - SQ 40 mg DAILY OLESYA Administration Ferrous Sulfate 325 mg 08/09/16 22:00 08/13/16 07:59 Feosol - PO 325 mg TID OLESYA Administration Folic Acid 1 mg 08/10/16 10:00 08/13/16 10:40 Folic Acid - PO 1 mg DAILY OLESYA Administration Guaifenesin 10 ml 08/09/16 19:44 Robitussin - PO Q8H PRN Hydrocortisone Sodium Succinate 50 mg 08/13/16 10:00 08/13/16 10:41 Solu-Cortef - IVPB 50 mg DAILY OLESYA Administration Insulin Aspart 1 vial 08/09/16 22:00 08/12/16 22:27 Novolog Vial Sliding Scale - SQ Not Given ACHS [facility] Protocol Levothyroxine Sodium 25 mcg 08/10/16 07:00 08/13/16 07:57 Synthroid - PO 25 mcg DAILY@0700 OLESYA Administration Multivitamins/Minerals/Vitamin C 1 tab 08/10/16 10:00 08/13/16 10:41 Tab-A-Vit - PO 1 tab DAILY OLESYA Administration Nystatin 1 applic 08/10/16 10:00 08/13/16 10:43 Nystop Powder - TP 1 applic DAILY OLESYA Administration Ondansetron HCl 4 mg 08/09/16 19:44 Zofran Injection IVPB Q6H PRN NAUSEA Potassium Chloride 40 meq 08/11/16 12:15 08/12/16 09:39 K-Dur - PO 40 meq DAILY OLESYA Administration Potassium Phos/Sodium Phos 1 packet 08/09/16 22:00 08/13/16 07:58 Phos-Nak Packet - PO 1 packet TID OLESYA Administration Tamsulosin HCl 0.4 mg 08/10/16 08:30 08/13/16 10:40 Flomax - PO 0.4 mg DAILY@0830 OLESYA Administration Vancomycin HCl 125 mg 08/10/16 00:00 08/13/16 07:58 Vancomycin Oral Solution PO 125 ml Q6HPO OLESYA Administration CBC, BMP 08/13/16 06:30 08/13/16 06:30 ecg 07/26/16: sr 59, nl intervals, no ischemic changes initial cxr: no chf --> subsequent cxr: bibasilar densities with left pleural effusion. 08/10 cxr: mod rt pl effusion new. chronic lt pl effusion mibi 10/2011: large inferolateral scar, no ischemia, lvef 35% echo 07/2016: tds/limited views: grossly nl lv size/fcn, mild mr a/p: 80 m hx htn, hld, dm, cad/ND (seen on prior mibi), syst chf, sent from [facility] for sepsis. sepsis: -cont abx per ID htn: -with infection his bp on low side, holding htn meds. cad/mi: -prior mibi showing infarct, no ischemia -no signs acs, trop neg x2 -cp here seems MSK after a recent fall -cont home asa -? not on statin per [place] med list--defer to outpt treatment and review or prior chart in [place] chronic systolic chf, EF normalized on echo here -previously with mod reduced EF on nuclear 2011--? etiology at that time -echo here showing nl overall LVEF -initially no signs vol overload here, then after IVFs had worsening pleural effusions/edema. Nutrition support, now off IVF. bradycardia: -pt with known sinus tashia evaluated with holter on prior admit that showed no pathologic bradycardia -tele here with sr in 40s at times so have stopped bb, avoid meds that cause bradycardia VTach: -10 beat run NSVT on tele 08/09 -replete lytes prn -EF preserved -holding BB due to bradycardia--no compelling indication for bb for NSVT in setting of sepsis, with normal LV fxn 3rd spacing/UE edema/hypoalb -UE elevation as indicated prn
[2016-08-13] MEDS: INSULIN SLIDING SCALE (NOVOLOG) 1 VIAL SQ SCH ×4 (13:46→22:00)
--- NOTE | 2016-08-13 13:56 | PN ---
Progress Note (short form) - Note Progress Note: Renal follow up for Metabolic acidosis and Hypernatremia Pt seen and examined at the bedside no acute complaints denies any abd pain, sob drinking water but coughing for swallow eval today Vital Signs Temperature 97.5 F L 08/13/16 06:00 Pulse Rate 54 L 08/13/16 06:00 Respiratory Rate 18 08/13/16 06:00 Blood Pressure 110/61 08/13/16 06:00 O2 Sat by Pulse Oximetry (%) 95 08/12/16 21:00 Intake & Output 08/10/16 08/11/16 08/12/16 08/13/16 23:59 23:59 23:59 23:59 Intake Total 610 170 300 Output Total 300 Balance 610 170 0 Weight 165 lb 8 oz 173 lb 6 oz 163 lb 8 oz Gen: NAD, on NC CVS: RRR Lungs :Dec Bs at lung bases but no rales, wheeze Abd: soft NT/ND Ext: UE edema, No LE edema Neuro: Awake and alert CBC, BMP 08/13/16 06:30 08/13/16 06:30 Laboratory Tests 08/13/16 06:30 Calcium 8.0 L Phosphorus 2.6 Magnesium 1.9 Albumin 1.6 L Current Medications Acetaminophen (Tylenol -) 650 mg PO Q4H PRN PRN Reason: FEVER OR PAIN Ascorbic Acid (Vitamin C -) 500 mg PO TID [facility] Last Admin: 08/13/16 07:57 Dose: 500 mg Aspirin (Asa -) 81 mg PO BID [facility] Last Admin: 08/13/16 10:40 Dose: 81 mg Collagenase (Santyl -) 1 applic TP DAILY [facility] Last Admin: 08/13/16 10:43 Dose: 1 applic Cyanocobalamin (Vitamin B12 -) 1,000 mcg PO DAILY [facility] Last Admin: 08/13/16 10:41 Dose: 1,000 mcg Enoxaparin Sodium (Lovenox -) 40 mg SQ DAILY [facility] Last Admin: 08/13/16 10:41 Dose: 40 mg Ferrous Sulfate (Feosol -) 325 mg PO TID [facility] Last Admin: 08/13/16 07:59 Dose: 325 mg Folic Acid (Folic Acid -) 1 mg PO DAILY [facility] Last Admin: 08/13/16 10:40 Dose: 1 mg Guaifenesin (Robitussin -) 10 ml PO Q8H PRN Hydrocortisone Sodium Succinate (Solu-Cortef -) 50 mg IVPB DAILY [facility] Last Admin: 08/13/16 10:41 Dose: 50 mg Insulin Aspart (Novolog Vial Sliding Scale -) 1 vial SQ ACHS OLESYA PRN Reason: Protocol Last Admin: 08/13/16 13:46 Dose: Not Given Levothyroxine Sodium (Synthroid -) 25 mcg PO DAILY@0700 [facility] Last Admin: 08/13/16 07:57 Dose: 25 mcg Multivitamins/Minerals/Vitamin C (Tab-A-Vit -) 1 tab PO DAILY [facility] Last Admin: 08/13/16 10:41 Dose: 1 tab Nystatin (Nystop Powder -) 1 applic TP DAILY [facility] Last Admin: 08/13/16 10:43 Dose: 1 applic Ondansetron HCl (Zofran Injection) 4 mg IVPB Q6H PRN PRN Reason: NAUSEA Potassium Chloride (K-Dur -) 40 meq PO DAILY [facility] Last Admin: 08/12/16 09:39 Dose: 40 meq Potassium Phos/Sodium Phos (Phos-Nak Packet -) 1 packet PO TID [facility] Last Admin: 08/13/16 07:58 Dose: 1 packet Tamsulosin HCl (Flomax -) 0.4 mg PO DAILY@0830 [facility] Last Admin: 08/13/16 10:40 Dose: 0.4 mg Vancomycin HCl (Vancomycin Oral Solution) 125 mg PO Q6HPO [facility] Last Admin: 08/13/16 13:46 Dose: Not Given A/P 80 year old Gentleman with PMhx of AAA, Hypertension, GERD, DM Type 2, Anemia, C. Diff colitis, Hyperlipidemia, CAD with Hx of [place] presented with hypothermia and found to have Sepsis related to UTI and C. Diff Colitis with diarrhea with metabolic acidosis and hypernatremia. #Metabolic acidosis (NAG) secondary to GI losses serum bicarbonate is acceptable off bicarb supplamentation trend daily #Hypernatremia water intake as tolerated #Sepsis/Hypothermia/Cdiff on IV Flagyl and PO Vanco started on Hydrocortisone IV with improvement in BP #Hypophosphatemia continue oral neutraphos #Hypomagnesemia improved and stable #Anemia Transfuse as per ICU protocol #Hypokalemia KCL 40meq PO daily Medardo Huerta DO
[2016-08-13] MEDS: POTASSIUM CHLORIDE TABS 20 MEQ TABLET.ER (FP) PO SCH (13:59)
[2016-08-13] MEDS ORDERED: PT OWN MED DRAWER 7, Y5N ONE (18:17)
[2016-08-14] MEDS: NYSTATIN 500,000 UNITS/5 ML SUSPENSION PO SCH ×5 (00:33→17:34)
[2016-08-14] MEDS: VANCOMYCIN 250 MG/5 ML ORAL SOLUTION PO SCH ×4 (06:34→17:34)
[2016-08-14] MEDS: NAPH,MB-DB/K PH,MBDB POWDER PACKET PO SCH (06:34)
[2016-08-14] MEDS: LEVOTHYROXINE NA 25 MCG TABLET (FP) PO SCH (06:34)
[2016-08-14] MEDS: FERROUS SO4 325 MG TABLET (FP) PO SCH ×3 (06:35→22:30)
[2016-08-14] MEDS: ASCORBIC ACID 500 MG TABLET (FP) PO SCH ×3 (06:35→22:30)
[2016-08-14] MEDS: INSULIN SLIDING SCALE (NOVOLOG) 1 VIAL SQ SCH ×5 (06:44→22:29)
--- NOTE | 2016-08-14 07:43 | PN ---
Progress Note (short form) - Note Progress Note: PATIENT AWAKE / COUGHING / NO DISTRESS. ADMITTED WITH SEPSIS / UTI . ++ C DIFF / ON ORAL VANCO. Selected Entries 08/14/16 02:50 Respiratory 18 Rate Blood Pressure 91/60 Laboratory Tests 08/13/16 08/13/16 08/13/16 06:30 06:30 17:44 WBC 14.7 H RBC 2.52 L Hgb 8.4 L Hct 25.5 L Plt Count 179 Sodium 149 H Potassium 3.3 L Chloride 118 H Carbon Dioxide 22 Anion Gap 9 BUN 22 H D Creatinine 0.8 Creat Clearance w eGFR > 60 POC Glucometer 115 Phosphorus 2.6 Magnesium 1.9 P/E <> TEMP 94 HEENT <> NECK SUPPLE COR S 1 S 2 HS DISTANT CHEST <> FEW SCATTERED RHONCI ABD <> SOFT / NONTENDER EXT <> 2 + STASIS EDEMA / ++ VITILIGO IMP : SEPSIS C DIFF ANEMIA HYPOTHERMIA HYPER NA++ HYPOTHYROID CHF CAD HTN PLAN : ORAL VANCO DYSPHAGIA PUREE DIET TOLERATED FOLLOW CBC TRANSFUSE PRN CARDIOLOGY FOLLOWUP.
--- NOTE | 2016-08-14 08:01 | PN ---
Progress Note (short form) - Note Progress Note: Has cough No fever or chlls Blood sugar stable Vital Signs Period Temp Pulse Resp BP Sys/Martino Pulse Ox Last 24 Hr 95.8 F-96.2 F 53-56 18-18 91-106/60-65 95-96 PE: Awake, alert HEENT: EOMOI Neck: Supple, No JVD Lungs: CTA Abd: Benign, BS+ CVS: s1S2 Ext: S/P rt big toe amputation, +edema of feet CMP Sodium 149 mmol/L (136-145) H 08/13/16 06:30 Potassium 3.3 mmol/L (3.5-5.1) L 08/13/16 06:30 Chloride 118 mmol/L (98-107) H 08/13/16 06:30 Carbon Dioxide 22 mmol/L (21-32) 08/13/16 06:30 Anion Gap 9 (8-16) 08/13/16 06:30 BUN 22 mg/dL (7-18) H D 08/13/16 06:30 Creatinine 0.8 mg/dL (0.7-1.3) 08/13/16 06:30 Creat Clearance w eGFR > 60 (>60) 08/13/16 06:30 POC Glucometer 108 UNITS (()) 08/14/16 06:41 Random Glucose 97 mg/dL (74-106) 08/13/16 06:30 Serum Osmolality 292 mosm/kg (278-305) 08/04/16 10:40 Lactic Acid 1.3 mmol/L (0.4-2.0) 08/05/16 05:15 Calcium 8.0 mg/dL (8.5-10.1) L 08/13/16 06:30 Phosphorus 2.6 mg/dL (2.5-4.9) 08/13/16 06:30 Magnesium 1.9 mg/dL (1.8-2.4) 08/13/16 06:30 Total Bilirubin 0.3 mg/dL (0.2-1.0) D 08/13/16 06:30 AST 30 U/L (15-37) D 08/13/16 06:30 ALT 17 U/L (12-78) D 08/13/16 06:30 Alkaline Phosphatase 97 U/L (45-117) 08/13/16 06:30 Creatine Kinase 27 IU/L (39-308) L 07/27/16 17:20 Troponin I < 0.02 ng/ml (0.00-0.05) 07/27/16 17:20 Total Protein 5.1 g/dl (6.4-8.2) L 08/13/16 06:30 Albumin 1.6 g/dl (3.4-5.0) L 08/13/16 06:30 Lipase 31 U/L (73-393) L 07/26/16 19:07 TSH 2.19 uIU/ml (0.358-3.74) D 08/11/16 05:35 Free T4 1.12 ng/dl (0.76-1.16) 08/04/16 05:38 Free T3 1.2 pg/ml (2.0-4.4) L 08/04/16 10:57 Cortisol AM Sample 14.0 ug/dL (.) 08/02/16 06:55 Current Medications Generic Name Dose Route Start Last Admin Trade Name Jolie PRN Reason Stop Dose Admin Acetaminophen 650 mg 08/09/16 19:44 Tylenol - PO Q4H PRN FEVER OR PAIN Ascorbic Acid 500 mg 08/09/16 22:00 08/14/16 06:35 Vitamin C - PO 500 mg TID OLESYA Administration Aspirin 81 mg 08/09/16 22:00 08/13/16 21:44 Asa - PO 81 mg BID OLESYA Administration Collagenase 1 applic 08/10/16 10:00 08/13/16 10:43 Santyl - TP 1 applic DAILY OLESYA Administration Cosyntropin 0.25 mg 08/14/16 09:15 Cortrosyn - IM 08/14/16 09:16 ONCE ONE Cyanocobalamin 1,000 mcg 08/10/16 10:00 08/13/16 10:41 Vitamin B12 - PO 1,000 mcg DAILY OLESYA Administration Enoxaparin Sodium 40 mg 08/10/16 10:00 08/13/16 10:41 Lovenox - SQ 40 mg DAILY OLESYA Administration Ferrous Sulfate 325 mg 08/09/16 22:00 08/14/16 06:35 Feosol - PO 325 mg TID OLESYA Administration Folic Acid 1 mg 08/10/16 10:00 08/13/16 10:40 Folic Acid - PO 1 mg DAILY OLESYA Administration Guaifenesin 10 ml 08/09/16 19:44 Robitussin - PO Q8H PRN Hydrocortisone Sodium Succinate 50 mg 08/13/16 10:00 08/13/16 10:41 Solu-Cortef - IVPB 50 mg DAILY OLESYA Administration Insulin Aspart 1 vial 08/09/16 22:00 08/14/16 06:44 Novolog Vial Sliding Scale - SQ Not Given ACHS [facility] Protocol Levothyroxine Sodium 25 mcg 08/10/16 07:00 08/14/16 06:34 Synthroid - PO 25 mcg DAILY@0700 OLESYA Administration Multivitamins/Minerals/Vitamin C 1 tab 08/10/16 10:00 08/13/16 10:41 Tab-A-Vit - PO 1 tab DAILY OLESYA Administration Nystatin 1 applic 08/10/16 10:00 08/13/16 10:43 Nystop Powder - TP 1 applic DAILY OLESYA Administration Nystatin 500,000 units 08/13/16 19:15 08/14/16 06:34 Nystatin Oral Suspension - PO 500,000 units Q6HPO OLESYA Administration Ondansetron HCl 4 mg 08/09/16 19:44 Zofran Injection IVPB Q6H PRN NAUSEA Potassium Chloride 40 meq 08/11/16 12:15 08/13/16 13:59 K-Dur - PO 40 meq DAILY OLESYA Administration Potassium Phos/Sodium Phos 1 packet 08/09/16 22:00 08/14/16 06:34 Phos-Nak Packet - PO 1 packet TID OLESYA Administration Tamsulosin HCl 0.4 mg 08/10/16 08:30 08/13/16 10:40 Flomax - PO 0.4 mg DAILY@0830 OLESYA Administration Vancomycin HCl 125 mg 08/10/16 00:00 08/14/16 06:34 Vancomycin Oral Solution PO 125 ml Q6HPO OLESYA Administration AP: Hypothyroidism: subclinical. Repeat TSH 2.19 Pt was not on thyroid hormone replacement prior to admission. prison medication list reviewed. Continue LT4 25. Bradycardia and hypotension unlikely to be related to the subclinical hypothyroidism Repeat TSH 2.19 Hypotension: Some improvement in blood pressure Morning cortisol was 14 Hydrocortisone 50 mg QD IV daily. For ACTH Stim test today. Cortisol level to be drawn at 9 am. Cortrosyn 0.25mg I.m at 9:15 a.m. and repeat cortisol at 10:00 a.m. Bradycardia: unlikely to be related to her thyroid status or any other endocrine issues Sepsis/Hypothermia UTI DM: BGM QACHS Novolog SS coverage Problem List - Problems (1) Anemia Code(s): D64.9 - ANEMIA, UNSPECIFIED Qualifiers: Anemia type: other cause Other causes of anemia: other cause, not classified Qualified Code(s): D64.89 - Other specified anemias (2) C. difficile colitis Code(s): A04.7 - ENTEROCOLITIS DUE TO CLOSTRIDIUM DIFFICILE (3) Septic shock Code(s): A41.9 - SEPSIS, UNSPECIFIED ORGANISM R65.21 - SEVERE SEPSIS WITH SEPTIC SHOCK (4) UTI (urinary tract infection) Code(s): N39.0 - URINARY TRACT INFECTION, SITE NOT SPECIFIED (5) Bradycardia Code(s): R00.1 - BRADYCARDIA, UNSPECIFIED (6) Diarrhea Code(s): R19.7 - DIARRHEA, UNSPECIFIED Qualifiers: Diarrhea type: infectious Qualified Code(s): A09 - Infectious gastroenteritis and colitis, unspecified
[2016-08-14] MEDS ORDERED: COSYNTROPIN 0.25 MG VIAL IM ONE (09:15)
[2016-08-14] MEDS: TAMSULOSIN HCL 0.4 MG CAP.ER.24H (FP) PO SCH (10:27)
[2016-08-14 10:47] LABS: BASOPHIL 0.5 % (0-2.0); EOSINOPHIL 0.1 % (0-4.5); MCH 32.8 pg (25.7-33.7); MCHC 31.7 g/dl (32.0-35.9); MEAN CELL VOLUME 103.4 fl (80-96); MEAN PLT VOLUME 9.7 fl (7.5-11.1); NEUTROPHILS 89.2 % (42.8-82.8); PLATELET COUNT 162 K/MM3 (134-434)
[2016-08-14 11:22] LABS: ALBUMIN 1.6 g/dl (3.4-5.0); ANION GAP 11 (8-16); BILIRUBIN,TOTAL 0.3 mg/dL (0.2-1.0); CALCIUM 8.1 mg/dL (8.5-10.1); CO2 20 mmol/L (21-32); COCKROFT - GAULT 86.81; CREATININE 0.7 mg/dL (0.7-1.3); GLUCOSE,RANDOM 119 mg/dL (74-106); SGOT/AST 26 U/L (15-37); SGPT/ALT 21 U/L (12-78)
[2016-08-14 11:23] LABS: ALK PHOS 94 U/L (45-117); TOT PROT 5.1 g/dl (6.4-8.2)
--- NOTE | 2016-08-14 11:33 | PN ---
Progress Note (short form) - Note Progress Note: PULMONARY Denies shortness of breath or chest pain. Mild nonproductive cough. Last Vital Signs Temp Pulse Resp BP Pulse Ox 95.7 F L 66 18 100/47 96 08/14/16 09:48 08/14/16 09:48 08/14/16 09:48 08/14/16 09:48 08/14/16 02:51 Gen: weak, chronically ill appearing Heart: RRR Lung: scattered rhonchi Abd: soft, nontender Ext: no edema CBC, BMP 08/14/16 10:30 Active Medications Acetaminophen (Tylenol -) 650 mg PO Q4H PRN PRN Reason: FEVER OR PAIN Ascorbic Acid (Vitamin C -) 500 mg PO TID [facility] Last Admin: 08/14/16 06:35 Dose: 500 mg Aspirin (Asa -) 81 mg PO BID [facility] Last Admin: 08/13/16 21:44 Dose: 81 mg Collagenase (Santyl -) 1 applic TP DAILY [facility] Last Admin: 08/13/16 10:43 Dose: 1 applic Cyanocobalamin (Vitamin B12 -) 1,000 mcg PO DAILY [facility] Last Admin: 08/13/16 10:41 Dose: 1,000 mcg Enoxaparin Sodium (Lovenox -) 40 mg SQ DAILY [facility] Last Admin: 08/13/16 10:41 Dose: 40 mg Ferrous Sulfate (Feosol -) 325 mg PO TID [facility] Last Admin: 08/14/16 06:35 Dose: 325 mg Folic Acid (Folic Acid -) 1 mg PO DAILY [facility] Last Admin: 08/13/16 10:40 Dose: 1 mg Guaifenesin (Robitussin -) 10 ml PO Q8H PRN Hydrocortisone Sodium Succinate (Solu-Cortef -) 50 mg IVPB DAILY [facility] Last Admin: 08/13/16 10:41 Dose: 50 mg Insulin Aspart (Novolog Vial Sliding Scale -) 1 vial SQ ACHS [facility] PRN Reason: Protocol Last Admin: 08/14/16 06:44 Dose: Not Given Levothyroxine Sodium (Synthroid -) 25 mcg PO DAILY@0700 [facility] Last Admin: 08/14/16 06:34 Dose: 25 mcg Multivitamins/Minerals/Vitamin C (Tab-A-Vit -) 1 tab PO DAILY [facility] Last Admin: 08/13/16 10:41 Dose: 1 tab Nystatin (Nystop Powder -) 1 applic TP DAILY [facility] Last Admin: 08/13/16 10:43 Dose: 1 applic Nystatin (Nystatin Oral Suspension -) 500,000 units PO Q6HPO [facility] Last Admin: 08/14/16 06:34 Dose: 500,000 units Ondansetron HCl (Zofran Injection) 4 mg IVPB Q6H PRN PRN Reason: NAUSEA Potassium Chloride (K-Dur -) 40 meq PO DAILY [facility] Last Admin: 08/13/16 13:59 Dose: 40 meq Potassium Phos/Sodium Phos (Phos-Nak Packet -) 1 packet PO TID [facility] Last Admin: 08/14/16 06:34 Dose: 1 packet Tamsulosin HCl (Flomax -) 0.4 mg PO DAILY@0830 [facility] Last Admin: 08/14/16 10:27 Dose: 0.4 mg Vancomycin HCl (Vancomycin Oral Solution) 125 mg PO Q6HPO [facility] Last Admin: 08/14/16 06:34 Dose: 125 ml A/P UTI C Diff Colitis Pneumonia vs Atelectasis Septic Shock resolving CAD LV Systolic Dysfunction HTN - continue antibiotics - monitor urine output, creatinine - taper hydrocortisone - aspiration precautions - attempt incentive spirometry - DVT prophylaxis
[2016-08-14] MEDS: ENOXAPARIN NA (PORCINE) 40 MG/0.4 ML DISP.SYRIN SQ SCH (12:34)
[2016-08-14] MEDS: HYDROCORTISONE SOD SUCCINATE 100 MG/2 ML VIAL IVPB SCH (12:35)
[2016-08-14] MEDS: FOLIC ACID 1 MG TABLET (FP) PO SCH (12:36)
[2016-08-14] MEDS: POTASSIUM CHLORIDE TABS 20 MEQ TABLET.ER (FP) PO SCH (12:36)
[2016-08-14] MEDS: ASPIRIN 81 MG CHEWABLE TABLETS PO SCH ×2 (12:36→22:30)
[2016-08-14] MEDS: CYANOCOBALAMIN 1,000 MCG TABLET (FP) PO SCH (12:36)
[2016-08-14] MEDS: MULTIVITAMINS (DAILY MVI) TABLET (FP) PO SCH (12:37)
[2016-08-14] MEDS ORDERED: PT OWN MED DRAWER 7, Y5N ONE (12:47)
--- NOTE | 2016-08-14 13:38 | PN ---
Progress Note, Physician Chief Complaint: The patient is in bed. Reports feeling better. No chest pain, No shortness of breath. Rectal tube in place. History of Present Illness: 80 y/o male with C. diff colitis, BRIGHT, hypernatremia. Tendency for Hypokalemia persists. Possibly related to K loss in stool. - Current Medication List Current Medications: Active Medications Acetaminophen (Tylenol -) 650 mg PO Q4H PRN PRN Reason: FEVER OR PAIN Ascorbic Acid (Vitamin C -) 500 mg PO TID [facility] Last Admin: 08/14/16 06:35 Dose: 500 mg Aspirin (Asa -) 81 mg PO BID [facility] Last Admin: 08/14/16 12:36 Dose: 81 mg Collagenase (Santyl -) 1 applic TP DAILY [facility] Last Admin: 08/13/16 10:43 Dose: 1 applic Cyanocobalamin (Vitamin B12 -) 1,000 mcg PO DAILY [facility] Last Admin: 08/14/16 12:36 Dose: 1,000 mcg Enoxaparin Sodium (Lovenox -) 40 mg SQ DAILY [facility] Last Admin: 08/14/16 12:34 Dose: 40 mg Ferrous Sulfate (Feosol -) 325 mg PO TID [facility] Last Admin: 08/14/16 06:35 Dose: 325 mg Folic Acid (Folic Acid -) 1 mg PO DAILY [facility] Last Admin: 08/14/16 12:36 Dose: 1 mg Guaifenesin (Robitussin -) 10 ml PO Q8H PRN Hydrocortisone Sodium Succinate (Solu-Cortef -) 50 mg IVPB DAILY [facility] Last Admin: 08/14/16 12:35 Dose: 50 mg Insulin Aspart (Novolog Vial Sliding Scale -) 1 vial SQ ACHS [facility] PRN Reason: Protocol Last Admin: 08/14/16 12:37 Dose: Not Given Levothyroxine Sodium (Synthroid -) 25 mcg PO DAILY@0700 [facility] Last Admin: 08/14/16 06:34 Dose: 25 mcg Multivitamins/Minerals/Vitamin C (Tab-A-Vit -) 1 tab PO DAILY [facility] Last Admin: 08/14/16 12:37 Dose: 1 tab Nystatin (Nystop Powder -) 1 applic TP DAILY [facility] Last Admin: 08/13/16 10:43 Dose: 1 applic Nystatin (Nystatin Oral Suspension -) 500,000 units PO Q6HPO [facility] Last Admin: 08/14/16 12:36 Dose: 500,000 units Ondansetron HCl (Zofran Injection) 4 mg IVPB Q6H PRN PRN Reason: NAUSEA Potassium Chloride (K-Dur -) 40 meq PO DAILY [facility] Last Admin: 08/14/16 12:36 Dose: 40 meq Potassium Phos/Sodium Phos (Phos-Nak Packet -) 1 packet PO TID [facility] Last Admin: 08/14/16 06:34 Dose: 1 packet Tamsulosin HCl (Flomax -) 0.4 mg PO DAILY@0830 [facility] Last Admin: 08/14/16 10:27 Dose: 0.4 mg Vancomycin HCl (Vancomycin Oral Solution) 125 mg PO Q6HPO [facility] Last Admin: 08/14/16 12:37 Dose: 125 ml - Objective Vital Signs: Vital Signs Temperature 95.7 F L 08/14/16 09:48 Pulse Rate 66 08/14/16 09:48 Respiratory Rate 18 08/14/16 09:48 Blood Pressure 100/47 08/14/16 09:48 O2 Sat by Pulse Oximetry (%) 96 08/14/16 02:51 Constitutional: Yes: Calm Eyes: Yes: Conjunctiva Clear HENT: Yes: Normocephalic Neck: Yes: Trachea Midline Respiratory: Yes: CTA Bilaterally, Poor Air Entry Gastrointestinal: Yes: Soft, Tenderness Genitourinary: No: Bladder Distention, CVA Tenderness - Left, Hematuria, Menses Present Edema: LLE: 2+, RLE: 2+ Labs: CBC, BMP 08/14/16 10:30 08/14/16 10:30 INR, PTT INR 1.17 (0.82-1.09) H 07/26/16 19:07 Problem List - Problems (1) Anemia Code(s): D64.9 - ANEMIA, UNSPECIFIED Qualifiers: Anemia type: other cause Other causes of anemia: other cause, not classified Qualified Code(s): D64.89 - Other specified anemias (2) C. difficile colitis Code(s): A04.7 - ENTEROCOLITIS DUE TO CLOSTRIDIUM DIFFICILE (3) Chronic systolic CHF (congestive heart failure) Code(s): I50.22 - CHRONIC SYSTOLIC (CONGESTIVE) HEART FAILURE (4) Hypernatremia Code(s): E87.0 - HYPEROSMOLALITY AND HYPERNATREMIA (5) Hypokalemia Code(s): E87.6 - HYPOKALEMIA (6) Hypomagnesemia Code(s): E83.42 - HYPOMAGNESEMIA (7) UTI (urinary tract infection) Code(s): N39.0 - URINARY TRACT INFECTION, SITE NOT SPECIFIED (8) CAD (coronary artery disease) Code(s): I25.10 - ATHSCL HEART DISEASE OF [place] CORONARY ARTERY W/O ANG PCTRS (9) Diabetes mellitus type 2 in nonobese Code(s): E11.9 - TYPE 2 DIABETES MELLITUS WITHOUT COMPLICATIONS (10) HLD (hyperlipidemia) Code(s): E78.5 - HYPERLIPIDEMIA, UNSPECIFIED Assessment/Plan The patient is an 80 y/o WM, wuith C. diff colitis. Hypokalemia persists. noted orders for KCl supplements. Hypernatremia persists. On Neutraphos. Will stop the same because of the Sodium load. Encourage oral fluids. Samantha Collazo MD
--- NOTE | 2016-08-14 14:10 | PN ---
Progress Note, Physician History of Present Illness: stable no new events swallow eval - Current Medication List Current Medications: Active Medications Acetaminophen (Tylenol -) 650 mg PO Q4H PRN PRN Reason: FEVER OR PAIN Ascorbic Acid (Vitamin C -) 500 mg PO TID [facility] Last Admin: 08/14/16 06:35 Dose: 500 mg Aspirin (Asa -) 81 mg PO BID [facility] Last Admin: 08/14/16 12:36 Dose: 81 mg Collagenase (Santyl -) 1 applic TP DAILY [facility] Last Admin: 08/13/16 10:43 Dose: 1 applic Cyanocobalamin (Vitamin B12 -) 1,000 mcg PO DAILY [facility] Last Admin: 08/14/16 12:36 Dose: 1,000 mcg Enoxaparin Sodium (Lovenox -) 40 mg SQ DAILY [facility] Last Admin: 08/14/16 12:34 Dose: 40 mg Ferrous Sulfate (Feosol -) 325 mg PO TID [facility] Last Admin: 08/14/16 06:35 Dose: 325 mg Folic Acid (Folic Acid -) 1 mg PO DAILY [facility] Last Admin: 08/14/16 12:36 Dose: 1 mg Guaifenesin (Robitussin -) 10 ml PO Q8H PRN Hydrocortisone Sodium Succinate (Solu-Cortef -) 50 mg IVPB DAILY [facility] Last Admin: 08/14/16 12:35 Dose: 50 mg Insulin Aspart (Novolog Vial Sliding Scale -) 1 vial SQ ACHS [facility] PRN Reason: Protocol Last Admin: 08/14/16 12:37 Dose: Not Given Levothyroxine Sodium (Synthroid -) 25 mcg PO DAILY@0700 [facility] Last Admin: 08/14/16 06:34 Dose: 25 mcg Multivitamins/Minerals/Vitamin C (Tab-A-Vit -) 1 tab PO DAILY [facility] Last Admin: 08/14/16 12:37 Dose: 1 tab Nystatin (Nystop Powder -) 1 applic TP DAILY [facility] Last Admin: 08/13/16 10:43 Dose: 1 applic Nystatin (Nystatin Oral Suspension -) 500,000 units PO Q6HPO [facility] Last Admin: 08/14/16 12:36 Dose: 500,000 units Ondansetron HCl (Zofran Injection) 4 mg IVPB Q6H PRN PRN Reason: NAUSEA Potassium Chloride (K-Dur -) 40 meq PO DAILY [facility] Last Admin: 08/14/16 12:36 Dose: 40 meq Tamsulosin HCl (Flomax -) 0.4 mg PO DAILY@0830 [facility] Last Admin: 08/14/16 10:27 Dose: 0.4 mg Vancomycin HCl (Vancomycin Oral Solution) 125 mg PO Q6HPO [facility] Last Admin: 08/14/16 12:37 Dose: 125 ml - Objective Vital Signs: Vital Signs Temperature 95.7 F L 08/14/16 09:48 Pulse Rate 66 08/14/16 09:48 Respiratory Rate 18 08/14/16 09:48 Blood Pressure 100/47 08/14/16 09:48 O2 Sat by Pulse Oximetry (%) 96 08/14/16 02:51 Constitutional: Yes: No Distress, Calm Cardiovascular: Yes: Bradycardia Respiratory: Yes: Regular, CTA Bilaterally Gastrointestinal: Yes: Normal Bowel Sounds, Soft Musculoskeletal: Yes: WNL Extremities: Yes: WNL Neurological: Yes: Alert, Oriented Psychiatric: Yes: Alert Labs: CBC, BMP 08/14/16 10:30 08/14/16 10:30 INR, PTT INR 1.17 (0.82-1.09) H 07/26/16 19:07 Assessment/Plan Problem List - Problems (1) Septic shock Code(s): A41.9 - SEPSIS, UNSPECIFIED ORGANISM R65.21 - SEVERE SEPSIS WITH SEPTIC SHOCK (2) HCAP (healthcare-associated pneumonia) Code(s): J18.9 - PNEUMONIA, UNSPECIFIED ORGANISM (3) UTI (urinary tract infection) Code(s): N39.0 - URINARY TRACT INFECTION, SITE NOT SPECIFIED (4) Diarrhea Code(s): R19.7 - DIARRHEA, UNSPECIFIED Qualifiers: Diarrhea type: unspecified type Qualified Code(s): R19.7 - Diarrhea, unspecified (5) Chest pain Code(s): R07.9 - CHEST PAIN, UNSPECIFIED (6) Anemia Code(s): D64.9 - ANEMIA, UNSPECIFIED Qualifiers: Anemia type: other cause Other causes of anemia: other cause, not classified Qualified Code(s): D64.89 - Other specified anemias (7) Chronic systolic CHF (congestive heart failure) Code(s): I50.22 - CHRONIC SYSTOLIC (CONGESTIVE) HEART FAILURE (8) CAD (coronary artery disease) Code(s): I25.10 - ATHSCL HEART DISEASE OF [place] CORONARY ARTERY W/O ANG PCTRS (9) Dehydration Code(s): E86.0 - DEHYDRATION (10) HTN (hypertension) Code(s): I10 - ESSENTIAL (PRIMARY) HYPERTENSION (11) Hypernatremia Code(s): E87.0 - HYPEROSMOLALITY AND HYPERNATREMIA 12 hypothermia 13 cdiff plan continue vanco patient coughing with swallow incentive clarisa monitor
--- NOTE | 2016-08-14 14:12 | PN ---
Progress Note, Physician History of Present Illness: no new issues no complaints rectal tube in place improving - Current Medication List Current Medications: Active Medications Acetaminophen (Tylenol -) 650 mg PO Q4H PRN PRN Reason: FEVER OR PAIN Ascorbic Acid (Vitamin C -) 500 mg PO TID [facility] Last Admin: 08/14/16 06:35 Dose: 500 mg Aspirin (Asa -) 81 mg PO BID [facility] Last Admin: 08/14/16 12:36 Dose: 81 mg Collagenase (Santyl -) 1 applic TP DAILY [facility] Last Admin: 08/13/16 10:43 Dose: 1 applic Cyanocobalamin (Vitamin B12 -) 1,000 mcg PO DAILY [facility] Last Admin: 08/14/16 12:36 Dose: 1,000 mcg Enoxaparin Sodium (Lovenox -) 40 mg SQ DAILY [facility] Last Admin: 08/14/16 12:34 Dose: 40 mg Ferrous Sulfate (Feosol -) 325 mg PO TID [facility] Last Admin: 08/14/16 06:35 Dose: 325 mg Folic Acid (Folic Acid -) 1 mg PO DAILY [facility] Last Admin: 08/14/16 12:36 Dose: 1 mg Guaifenesin (Robitussin -) 10 ml PO Q8H PRN Hydrocortisone Sodium Succinate (Solu-Cortef -) 50 mg IVPB DAILY [facility] Last Admin: 08/14/16 12:35 Dose: 50 mg Insulin Aspart (Novolog Vial Sliding Scale -) 1 vial SQ ACHS [facility] PRN Reason: Protocol Last Admin: 08/14/16 12:37 Dose: Not Given Levothyroxine Sodium (Synthroid -) 25 mcg PO DAILY@0700 [facility] Last Admin: 08/14/16 06:34 Dose: 25 mcg Multivitamins/Minerals/Vitamin C (Tab-A-Vit -) 1 tab PO DAILY [facility] Last Admin: 08/14/16 12:37 Dose: 1 tab Nystatin (Nystop Powder -) 1 applic TP DAILY [facility] Last Admin: 08/13/16 10:43 Dose: 1 applic Nystatin (Nystatin Oral Suspension -) 500,000 units PO Q6HPO [facility] Last Admin: 08/14/16 12:36 Dose: 500,000 units Ondansetron HCl (Zofran Injection) 4 mg IVPB Q6H PRN PRN Reason: NAUSEA Potassium Chloride (K-Dur -) 40 meq PO DAILY [facility] Last Admin: 08/14/16 12:36 Dose: 40 meq Tamsulosin HCl (Flomax -) 0.4 mg PO DAILY@0830 [facility] Last Admin: 08/14/16 10:27 Dose: 0.4 mg Vancomycin HCl (Vancomycin Oral Solution) 125 mg PO Q6HPO [facility] Last Admin: 08/14/16 12:37 Dose: 125 ml - Objective Vital Signs: Vital Signs Temperature 95.7 F L 08/14/16 09:48 Pulse Rate 66 08/14/16 09:48 Respiratory Rate 18 08/14/16 09:48 Blood Pressure 100/47 08/14/16 09:48 O2 Sat by Pulse Oximetry (%) 96 08/14/16 02:51 Constitutional: Yes: No Distress, Calm Cardiovascular: Yes: S1, S2 Respiratory: Yes: Regular, CTA Bilaterally Gastrointestinal: Yes: Normal Bowel Sounds, Soft Musculoskeletal: Yes: WNL Extremities: Yes: WNL Neurological: Yes: Alert Labs: CBC, BMP 08/14/16 10:30 08/14/16 10:30 INR, PTT INR 1.17 (0.82-1.09) H 07/26/16 19:07 Assessment/Plan Problem List - Problems (1) Septic shock Code(s): A41.9 - SEPSIS, UNSPECIFIED ORGANISM R65.21 - SEVERE SEPSIS WITH SEPTIC SHOCK (2) HCAP (healthcare-associated pneumonia) Code(s): J18.9 - PNEUMONIA, UNSPECIFIED ORGANISM (3) UTI (urinary tract infection) Code(s): N39.0 - URINARY TRACT INFECTION, SITE NOT SPECIFIED (4) Diarrhea Code(s): R19.7 - DIARRHEA, UNSPECIFIED Qualifiers: Diarrhea type: unspecified type Qualified Code(s): R19.7 - Diarrhea, unspecified (5) Chest pain Code(s): R07.9 - CHEST PAIN, UNSPECIFIED (6) Anemia Code(s): D64.9 - ANEMIA, UNSPECIFIED Qualifiers: Anemia type: other cause Other causes of anemia: other cause, not classified Qualified Code(s): D64.89 - Other specified anemias (7) Chronic systolic CHF (congestive heart failure) Code(s): I50.22 - CHRONIC SYSTOLIC (CONGESTIVE) HEART FAILURE (8) CAD (coronary artery disease) Code(s): I25.10 - ATHSCL HEART DISEASE OF [place] CORONARY ARTERY W/O ANG PCTRS (9) Dehydration Code(s): E86.0 - DEHYDRATION (10) HTN (hypertension) Code(s): I10 - ESSENTIAL (PRIMARY) HYPERTENSION (11) Hypernatremia Code(s): E87.0 - HYPEROSMOLALITY AND HYPERNATREMIA 12 hypothermia 13 cdiff plan continue vanco patient coughing with swallow incentive clarisa monitor rest as per primary
[2016-08-14] MEDS: COLLAGENASE CLOSTRIDIUM HIST. 30 GRAMS TUBE TP SCH (15:00)
[2016-08-14] MEDS: NYSTATIN POWDER 100,000 UNITS/GM - 15 GM TOPICAL POWDER TP SCH (15:00)
[2016-08-15] MEDS ORDERED: PT OWN MED DRAWER 7, Y5N ONE (00:28)
[2016-08-15] MEDS: NYSTATIN 500,000 UNITS/5 ML SUSPENSION PO SCH ×4 (00:41→17:10)
[2016-08-15] MEDS: VANCOMYCIN 250 MG/5 ML ORAL SOLUTION PO SCH ×4 (00:44→17:11)
[2016-08-15] MEDS: ASCORBIC ACID 500 MG TABLET (FP) PO SCH ×3 (06:08→22:01)
[2016-08-15] MEDS: FERROUS SO4 325 MG TABLET (FP) PO SCH ×3 (06:08→22:01)
[2016-08-15] MEDS: LEVOTHYROXINE NA 25 MCG TABLET (FP) PO SCH (06:08)
[2016-08-15] MEDS: INSULIN SLIDING SCALE (NOVOLOG) 1 VIAL SQ SCH ×4 (06:11→22:02)
--- NOTE | 2016-08-15 07:34 | PN ---
Progress Note (short form) - Note Progress Note: PATIENT WITH NO OVERALL CHANGE . COUGHING / MILD RESPIRATORY DISTRESS. RECTAL TUBE IN PLACE . NA ++ 150 <> YESTERDAY . SEE RENAL NOTE Laboratory Tests 08/14/16 08/14/16 10:30 10:30 WBC 17.0 H RBC 2.49 L Hgb 8.2 L Hct 25.7 L Plt Count 162 Sodium 150 H Potassium 3.4 L Chloride 119 H Carbon Dioxide 20 L Anion Gap 11 BUN 20 H Creatinine 0.7 Creat Clearance w eGFR > 60 Random Glucose 119 H D Calcium 8.1 L Total Bilirubin 0.3 AST 26 ALT 21 D Alkaline Phosphatase 94 Total Protein 5.1 L Albumin 1.6 L Selected Entries Laboratory Tests P/E <> HEENT <> NECK SUPPLE COR S 1 S 2 HS DISTANT CHEST <>SCATTERED RHONCHI AT BASES. ABD <> SOFT / NONTENDER EXT <> 2 + STASIS EDEMA / ++ VITILIGO IMP : SEPSIS C DIFF ANEMIA HYPOTHERMIA HYPER NA++ HYPOTHYROID CHF CAD HTN LEUCKOCTOSIS POSSIBLY RELATED TO STEROIDS PLAN : CONTINUE ORAL VANCO DYSPHAGIA PUREE DIET MONITOR ELECTROLYTES. RENAL FOLLOWUP. SUPPORTIVE CARE.
[2016-08-15 08:31] LABS: ALBUMIN 1.5 g/dl (3.4-5.0); ANION GAP 12 (8-16); CALCIUM 8.2 mg/dL (8.5-10.1); CO2 18 mmol/L (21-32); COCKROFT - GAULT 86.81; CREATININE 0.7 mg/dL (0.7-1.3); GLUCOSE,RANDOM 96 mg/dL (74-106); MAGNESIUM 1.9 mg/dL (1.8-2.4); PHOSPHOROUS 1.9 mg/dL (2.5-4.9); SGPT/ALT 19 U/L (12-78)
[2016-08-15 08:35] LABS: ALK PHOS 95 U/L (45-117); BILIRUBIN,TOTAL 0.4 mg/dL (0.2-1.0); SGOT/AST 24 U/L (15-37)
[2016-08-15] MEDS: HYDROCORTISONE SOD SUCCINATE 100 MG/2 ML VIAL IVPB SCH (10:30)
[2016-08-15] MEDS: ENOXAPARIN NA (PORCINE) 40 MG/0.4 ML DISP.SYRIN SQ SCH (10:30)
[2016-08-15] MEDS: POTASSIUM CHLORIDE TABS 20 MEQ TABLET.ER (FP) PO SCH ×2 (10:31→22:01)
[2016-08-15] MEDS: FOLIC ACID 1 MG TABLET (FP) PO SCH (10:31)
[2016-08-15] MEDS: CYANOCOBALAMIN 1,000 MCG TABLET (FP) PO SCH (10:31)
[2016-08-15] MEDS: TAMSULOSIN HCL 0.4 MG CAP.ER.24H (FP) PO SCH (10:31)
[2016-08-15] MEDS: ASPIRIN 81 MG CHEWABLE TABLETS PO SCH ×2 (10:32→22:01)
[2016-08-15] MEDS: MULTIVITAMINS (DAILY MVI) TABLET (FP) PO SCH (10:32)
[2016-08-15] MEDS: NYSTATIN POWDER 100,000 UNITS/GM - 15 GM TOPICAL POWDER TP SCH (10:33)
[2016-08-15] MEDS: COLLAGENASE CLOSTRIDIUM HIST. 30 GRAMS TUBE TP SCH (10:34)
--- NOTE | 2016-08-15 11:47 | PN ---
Progress Note (short form) - Note Progress Note: PULMONARY Denies shortness of breath or chest pain. Mild nonproductive cough. Last Vital Signs Temp Pulse Resp BP Pulse Ox 98 F 64 20 102/61 96 08/14/16 22:00 08/14/16 22:00 08/14/16 22:00 08/14/16 22:00 08/14/16 22:00 Gen: weak, chronically ill appearing Heart: RRR Lung: scattered rhonchi Abd: soft, nontender Ext: no edema CBC, BMP 08/14/16 10:30 08/15/16 06:10 Active Medications Acetaminophen (Tylenol -) 650 mg PO Q4H PRN PRN Reason: FEVER OR PAIN Ascorbic Acid (Vitamin C -) 500 mg PO TID [facility] Last Admin: 08/15/16 06:08 Dose: 500 mg Aspirin (Asa -) 81 mg PO BID [facility] Last Admin: 08/15/16 10:32 Dose: 81 mg Collagenase (Santyl -) 1 applic TP DAILY [facility] Last Admin: 08/15/16 10:34 Dose: 1 applic Cyanocobalamin (Vitamin B12 -) 1,000 mcg PO DAILY [facility] Last Admin: 08/15/16 10:31 Dose: 1,000 mcg Enoxaparin Sodium (Lovenox -) 40 mg SQ DAILY [facility] Last Admin: 08/15/16 10:30 Dose: 40 mg Ferrous Sulfate (Feosol -) 325 mg PO TID [facility] Last Admin: 08/15/16 06:08 Dose: 325 mg Folic Acid (Folic Acid -) 1 mg PO DAILY [facility] Last Admin: 08/15/16 10:31 Dose: 1 mg Guaifenesin (Robitussin -) 10 ml PO Q8H PRN Hydrocortisone Sodium Succinate (Solu-Cortef -) 50 mg IVPB DAILY [facility] Last Admin: 08/15/16 10:30 Dose: 50 mg Insulin Aspart (Novolog Vial Sliding Scale -) 1 vial SQ ACHS [facility] PRN Reason: Protocol Last Admin: 08/15/16 11:21 Dose: 2 units Levothyroxine Sodium (Synthroid -) 25 mcg PO DAILY@0700 [facility] Last Admin: 08/15/16 06:08 Dose: 25 mcg Multivitamins/Minerals/Vitamin C (Tab-A-Vit -) 1 tab PO DAILY [facility] Last Admin: 08/15/16 10:32 Dose: 1 tab Nystatin (Nystop Powder -) 1 applic TP DAILY [facility] Last Admin: 08/15/16 10:33 Dose: 1 applic Nystatin (Nystatin Oral Suspension -) 500,000 units PO Q6HPO [facility] Last Admin: 08/15/16 11:10 Dose: 500,000 units Ondansetron HCl (Zofran Injection) 4 mg IVPB Q6H PRN PRN Reason: NAUSEA Potassium Chloride (K-Dur -) 40 meq PO DAILY [facility] Last Admin: 08/15/16 10:31 Dose: 40 meq Tamsulosin HCl (Flomax -) 0.4 mg PO DAILY@0830 [facility] Last Admin: 08/15/16 10:31 Dose: 0.4 mg Vancomycin HCl (Vancomycin Oral Solution) 125 mg PO Q6HPO [facility] Last Admin: 08/15/16 06:10 Dose: 2.5 ml A/P UTI C Diff Colitis Pneumonia vs Atelectasis Septic Shock resolving CAD LV Systolic Dysfunction HTN - continue antibiotics - monitor urine output, creatinine - replete lytes - taper hydrocortisone - aspiration precautions - attempt incentive spirometry - DVT prophylaxis
--- NOTE | 2016-08-15 12:23 | PN ---
Progress Note, Physician History of Present Illness: feels weak still with loose stools - Current Medication List Current Medications: Active Medications Acetaminophen (Tylenol -) 650 mg PO Q4H PRN PRN Reason: FEVER OR PAIN Ascorbic Acid (Vitamin C -) 500 mg PO TID [facility] Last Admin: 08/15/16 06:08 Dose: 500 mg Aspirin (Asa -) 81 mg PO BID [facility] Last Admin: 08/15/16 10:32 Dose: 81 mg Collagenase (Santyl -) 1 applic TP DAILY [facility] Last Admin: 08/15/16 10:34 Dose: 1 applic Cyanocobalamin (Vitamin B12 -) 1,000 mcg PO DAILY [facility] Last Admin: 08/15/16 10:31 Dose: 1,000 mcg Enoxaparin Sodium (Lovenox -) 40 mg SQ DAILY [facility] Last Admin: 08/15/16 10:30 Dose: 40 mg Ferrous Sulfate (Feosol -) 325 mg PO TID [facility] Last Admin: 08/15/16 06:08 Dose: 325 mg Folic Acid (Folic Acid -) 1 mg PO DAILY [facility] Last Admin: 08/15/16 10:31 Dose: 1 mg Guaifenesin (Robitussin -) 10 ml PO Q8H PRN Hydrocortisone Sodium Succinate (Solu-Cortef -) 50 mg IVPB DAILY [facility] Last Admin: 08/15/16 10:30 Dose: 50 mg Insulin Aspart (Novolog Vial Sliding Scale -) 1 vial SQ ACHS [facility] PRN Reason: Protocol Last Admin: 08/15/16 11:21 Dose: 2 units Levothyroxine Sodium (Synthroid -) 25 mcg PO DAILY@0700 [facility] Last Admin: 08/15/16 06:08 Dose: 25 mcg Multivitamins/Minerals/Vitamin C (Tab-A-Vit -) 1 tab PO DAILY [facility] Last Admin: 08/15/16 10:32 Dose: 1 tab Nystatin (Nystop Powder -) 1 applic TP DAILY [facility] Last Admin: 08/15/16 10:33 Dose: 1 applic Nystatin (Nystatin Oral Suspension -) 500,000 units PO Q6HPO [facility] Last Admin: 08/15/16 11:10 Dose: 500,000 units Ondansetron HCl (Zofran Injection) 4 mg IVPB Q6H PRN PRN Reason: NAUSEA Potassium Chloride (K-Dur -) 40 meq PO DAILY [facility] Last Admin: 08/15/16 10:31 Dose: 40 meq Tamsulosin HCl (Flomax -) 0.4 mg PO DAILY@0830 [facility] Last Admin: 08/15/16 10:31 Dose: 0.4 mg Vancomycin HCl (Vancomycin Oral Solution) 125 mg PO Q6HPO [facility] Last Admin: 08/15/16 06:10 Dose: 2.5 ml - Objective Vital Signs: Vital Signs Temperature 98 F 08/14/16 22:00 Pulse Rate 64 08/14/16 22:00 Respiratory Rate 20 08/14/16 22:00 Blood Pressure 102/61 08/14/16 22:00 O2 Sat by Pulse Oximetry (%) 96 08/14/16 22:00 Constitutional: Yes: Calm Cardiovascular: Yes: S1, S2 Respiratory: Yes: Regular, Poor Air Entry Gastrointestinal: Yes: Normal Bowel Sounds, Soft Musculoskeletal: Yes: Other Extremities: Yes: Other Neurological: Yes: Alert Psychiatric: Yes: Alert Labs: CBC, BMP 08/14/16 10:30 08/15/16 06:10 INR, PTT INR 1.17 (0.82-1.09) H 07/26/16 19:07 Assessment/Plan Problem List - Problems (1) Septic shock Code(s): A41.9 - SEPSIS, UNSPECIFIED ORGANISM R65.21 - SEVERE SEPSIS WITH SEPTIC SHOCK (2) HCAP (healthcare-associated pneumonia) Code(s): J18.9 - PNEUMONIA, UNSPECIFIED ORGANISM (3) UTI (urinary tract infection) Code(s): N39.0 - URINARY TRACT INFECTION, SITE NOT SPECIFIED (4) Diarrhea Code(s): R19.7 - DIARRHEA, UNSPECIFIED Qualifiers: Diarrhea type: unspecified type Qualified Code(s): R19.7 - Diarrhea, unspecified (5) Chest pain Code(s): R07.9 - CHEST PAIN, UNSPECIFIED (6) Anemia Code(s): D64.9 - ANEMIA, UNSPECIFIED Qualifiers: Anemia type: other cause Other causes of anemia: other cause, not classified Qualified Code(s): D64.89 - Other specified anemias (7) Chronic systolic CHF (congestive heart failure) Code(s): I50.22 - CHRONIC SYSTOLIC (CONGESTIVE) HEART FAILURE (8) CAD (coronary artery disease) Code(s): I25.10 - ATHSCL HEART DISEASE OF [place] CORONARY ARTERY W/O ANG PCTRS (9) Dehydration Code(s): E86.0 - DEHYDRATION (10) HTN (hypertension) Code(s): I10 - ESSENTIAL (PRIMARY) HYPERTENSION (11) Hypernatremia Code(s): E87.0 - HYPEROSMOLALITY AND HYPERNATREMIA 12 hypothermia 13 cdiff plan continue vanco incentive clarisa continue to monitor rest as per primary
--- NOTE | 2016-08-15 13:42 | PN ---
Progress Note, Physician Chief Complaint: The patient is in bed. Reports feeling weaker today. No chest pain, No shortness of breath. Rectal tube in place. History of Present Illness: 80 y/o male with C. diff colitis, BRIGHT, hypernatremia. Tendency for Hypokalemia persists. Possibly related to K loss in stool. - Current Medication List Current Medications: Active Medications Acetaminophen (Tylenol -) 650 mg PO Q4H PRN PRN Reason: FEVER OR PAIN Ascorbic Acid (Vitamin C -) 500 mg PO TID [facility] Last Admin: 08/15/16 06:08 Dose: 500 mg Aspirin (Asa -) 81 mg PO BID [facility] Last Admin: 08/15/16 10:32 Dose: 81 mg Collagenase (Santyl -) 1 applic TP DAILY [facility] Last Admin: 08/15/16 10:34 Dose: 1 applic Cyanocobalamin (Vitamin B12 -) 1,000 mcg PO DAILY [facility] Last Admin: 08/15/16 10:31 Dose: 1,000 mcg Enoxaparin Sodium (Lovenox -) 40 mg SQ DAILY [facility] Last Admin: 08/15/16 10:30 Dose: 40 mg Ferrous Sulfate (Feosol -) 325 mg PO TID [facility] Last Admin: 08/15/16 06:08 Dose: 325 mg Folic Acid (Folic Acid -) 1 mg PO DAILY [facility] Last Admin: 08/15/16 10:31 Dose: 1 mg Guaifenesin (Robitussin -) 10 ml PO Q8H PRN Hydrocortisone Sodium Succinate (Solu-Cortef -) 50 mg IVPB DAILY [facility] Last Admin: 08/15/16 10:30 Dose: 50 mg Insulin Aspart (Novolog Vial Sliding Scale -) 1 vial SQ ACHS [facility] PRN Reason: Protocol Last Admin: 08/15/16 11:21 Dose: 2 units Levothyroxine Sodium (Synthroid -) 25 mcg PO DAILY@0700 [facility] Last Admin: 08/15/16 06:08 Dose: 25 mcg Multivitamins/Minerals/Vitamin C (Tab-A-Vit -) 1 tab PO DAILY [facility] Last Admin: 08/15/16 10:32 Dose: 1 tab Nystatin (Nystop Powder -) 1 applic TP DAILY [facility] Last Admin: 08/15/16 10:33 Dose: 1 applic Nystatin (Nystatin Oral Suspension -) 500,000 units PO Q6HPO [facility] Last Admin: 08/15/16 11:10 Dose: 500,000 units Ondansetron HCl (Zofran Injection) 4 mg IVPB Q6H PRN PRN Reason: NAUSEA Potassium Chloride (K-Dur -) 40 meq PO DAILY [facility] Last Admin: 08/15/16 10:31 Dose: 40 meq Tamsulosin HCl (Flomax -) 0.4 mg PO DAILY@0830 [facility] Last Admin: 08/15/16 10:31 Dose: 0.4 mg Vancomycin HCl (Vancomycin Oral Solution) 125 mg PO Q6HPO [facility] Last Admin: 08/15/16 06:10 Dose: 2.5 ml - Objective Vital Signs: Vital Signs Temperature 98 F 08/14/16 22:00 Pulse Rate 64 08/14/16 22:00 Respiratory Rate 20 08/14/16 22:00 Blood Pressure 102/61 08/14/16 22:00 O2 Sat by Pulse Oximetry (%) 96 08/14/16 22:00 Constitutional: Yes: Anxious, Mild Distress Neck: Yes: Trachea Midline Cardiovascular: Yes: S1, S2 Respiratory: Yes: Diminished, Poor Air Entry Gastrointestinal: Yes: Soft, Hypoactive Bowel Sounds Edema: Yes Edema: LLE: 3+, RLE: 3+ Labs: CBC, BMP 08/14/16 10:30 08/15/16 06:10 INR, PTT INR 1.17 (0.82-1.09) H 07/26/16 19:07 Problem List - Problems (1) Anemia Code(s): D64.9 - ANEMIA, UNSPECIFIED Qualifiers: Anemia type: other cause Other causes of anemia: other cause, not classified Qualified Code(s): D64.89 - Other specified anemias (2) C. difficile colitis Code(s): A04.7 - ENTEROCOLITIS DUE TO CLOSTRIDIUM DIFFICILE (3) Chronic systolic CHF (congestive heart failure) Code(s): I50.22 - CHRONIC SYSTOLIC (CONGESTIVE) HEART FAILURE (4) Hypernatremia Code(s): E87.0 - HYPEROSMOLALITY AND HYPERNATREMIA (5) Hypokalemia Code(s): E87.6 - HYPOKALEMIA (6) Hypomagnesemia Code(s): E83.42 - HYPOMAGNESEMIA (7) UTI (urinary tract infection) Code(s): N39.0 - URINARY TRACT INFECTION, SITE NOT SPECIFIED (8) CAD (coronary artery disease) Code(s): I25.10 - ATHSCL HEART DISEASE OF [place] CORONARY ARTERY W/O ANG PCTRS (9) Diabetes mellitus type 2 in nonobese Code(s): E11.9 - TYPE 2 DIABETES MELLITUS WITHOUT COMPLICATIONS (10) HLD (hyperlipidemia) Code(s): E78.5 - HYPERLIPIDEMIA, UNSPECIFIED Assessment/Plan The patient is an 80 y/o WM, wuith C. diff colitis. Hypokalemia persists. noted orders for KCl supplements. Hypernatremia worsening. Oral fluid intake suboptimal. Hard to place a peripheral line because of the anasarca. Will encourage IV fluids. May need IV fluid supplements if the Hypernatremia worsens. ( ? Central line?) Samantha Collazo MD
[2016-08-15 17:26] LABS: MCH 31.8 pg (25.7-33.7); MCHC 30.2 g/dl (32.0-35.9); MEAN CELL VOLUME 105.2 fl (80-96); MEAN PLT VOLUME 10.4 fl (7.5-11.1); PLATELET COUNT 153 K/MM3 (134-434); RDW 17.3 % (11.9-15.9); WHITE BLOOD COUNT 20.5 K/mm3 (4.0-10.0)
[2016-08-15 18:13] LABS: OVALOCYTES 1+; PLATELET ESTIMATE ADEQUATE (NORMAL); POIKILOCYTOSIS 1+; TEAR DROP CELLS RARE
[2016-08-16] MEDS: NYSTATIN 500,000 UNITS/5 ML SUSPENSION PO SCH ×4 (00:18→17:50)
[2016-08-16] MEDS: VANCOMYCIN 250 MG/5 ML ORAL SOLUTION PO SCH ×4 (00:18→17:51)
[2016-08-16] MEDS: FERROUS SO4 325 MG TABLET (FP) PO SCH ×3 (06:19→22:44)
[2016-08-16] MEDS: ASCORBIC ACID 500 MG TABLET (FP) PO SCH ×3 (06:19→22:44)
[2016-08-16] MEDS: LEVOTHYROXINE NA 25 MCG TABLET (FP) PO SCH (06:19)
[2016-08-16] MEDS: INSULIN SLIDING SCALE (NOVOLOG) 1 VIAL SQ SCH ×4 (06:21→22:47)
[2016-08-16 08:04] LABS: ALBUMIN 1.5 g/dl (3.4-5.0); ALK PHOS 87 U/L (45-117); ANION GAP 12 (8-16); BILIRUBIN,TOTAL 0.4 mg/dL (0.2-1.0); CALCIUM 8.3 mg/dL (8.5-10.1); CO2 18 mmol/L (21-32); COCKROFT - GAULT 91.93; CREATININE 0.6 mg/dL (0.7-1.3); GLUCOSE,RANDOM 60 mg/dL (74-106); MAGNESIUM 1.9 mg/dL (1.8-2.4); SGOT/AST 26 U/L (15-37); SGPT/ALT 20 U/L (12-78); TOT PROT 4.8 g/dl (6.4-8.2)
[2016-08-16] MEDS ORDERED: PT OWN MED DRAWER 7, Y5N ONE (08:51)
[2016-08-16 09:07] LABS: BASOPHIL 0.1 % (0-2.0); EOSINOPHIL 0.1 % (0-4.5); MCH 32.8 pg (25.7-33.7); MCHC 31.6 g/dl (32.0-35.9); MEAN CELL VOLUME 103.8 fl (80-96); MEAN PLT VOLUME 10.6 fl (7.5-11.1); PLATELET COUNT 144 K/MM3 (134-434); RDW 17.5 % (11.9-15.9); WHITE BLOOD COUNT 22.4 K/mm3 (4.0-10.0)
[2016-08-16] MEDS: HYDROCORTISONE SOD SUCCINATE 100 MG/2 ML VIAL IVPB SCH ×2 (09:29→09:35)
[2016-08-16] MEDS: ENOXAPARIN NA (PORCINE) 40 MG/0.4 ML DISP.SYRIN SQ SCH (09:35)
[2016-08-16] MEDS: FOLIC ACID 1 MG TABLET (FP) PO SCH (09:36)
[2016-08-16] MEDS: POTASSIUM CHLORIDE TABS 20 MEQ TABLET.ER (FP) PO SCH ×2 (09:36→22:44)
[2016-08-16] MEDS: MULTIVITAMINS (DAILY MVI) TABLET (FP) PO SCH (09:36)
[2016-08-16] MEDS: TAMSULOSIN HCL 0.4 MG CAP.ER.24H (FP) PO SCH (09:36)
[2016-08-16] MEDS: CYANOCOBALAMIN 1,000 MCG TABLET (FP) PO SCH (09:36)
[2016-08-16] MEDS: ASPIRIN 81 MG CHEWABLE TABLETS PO SCH ×2 (09:36→22:44)
[2016-08-16] MEDS: NYSTATIN POWDER 100,000 UNITS/GM - 15 GM TOPICAL POWDER TP SCH (09:37)
[2016-08-16] MEDS: COLLAGENASE CLOSTRIDIUM HIST. 30 GRAMS TUBE TP SCH (09:38)
--- NOTE | 2016-08-16 10:34 | PN ---
Progress Note (short form) - Note Progress Note: O/E Patient seen and examined. Alert, awake, interactive in conversation. Congested. On aspiration precautions. Afebrile. Poor PO intake. Vital Signs Period Temp Pulse Resp BP Sys/Martino Pulse Ox Last 24 Hr 96.3 F-96.8 F 55-74 16-20 95-127/45-65 97-97 Heartt regular Lungs clear' Abd soft Ext no edema Not cold Current Medications Acetaminophen (Tylenol -) 650 mg PO Q4H PRN PRN Reason: FEVER OR PAIN Ascorbic Acid (Vitamin C -) 500 mg PO TID [facility] Last Admin: 08/16/16 06:19 Dose: 500 mg Aspirin (Asa -) 81 mg PO BID [facility] Last Admin: 08/16/16 09:36 Dose: 81 mg Collagenase (Santyl -) 1 applic TP DAILY [facility] Last Admin: 08/16/16 09:38 Dose: 1 applic Cyanocobalamin (Vitamin B12 -) 1,000 mcg PO DAILY [facility] Last Admin: 08/16/16 09:36 Dose: 1,000 mcg Enoxaparin Sodium (Lovenox -) 40 mg SQ DAILY [facility] Last Admin: 08/16/16 09:35 Dose: 40 mg Ferrous Sulfate (Feosol -) 325 mg PO TID [facility] Last Admin: 08/16/16 06:19 Dose: 325 mg Folic Acid (Folic Acid -) 1 mg PO DAILY [facility] Last Admin: 08/16/16 09:36 Dose: 1 mg Guaifenesin (Robitussin -) 10 ml PO Q8H PRN Potassium Chloride 10 meq/ (Sodium Chloride) 1,005 mls @ 42 mls/hr IVPB Q24H [facility] Insulin Aspart (Novolog Vial Sliding Scale -) 1 vial SQ ACHS [facility] PRN Reason: Protocol Last Admin: 08/16/16 06:21 Dose: Not Given Levothyroxine Sodium (Synthroid -) 25 mcg PO DAILY@0700 [facility] Last Admin: 08/16/16 06:19 Dose: 25 mcg Multivitamins/Minerals/Vitamin C (Tab-A-Vit -) 1 tab PO DAILY [facility] Last Admin: 08/16/16 09:36 Dose: 1 tab Nystatin (Nystop Powder -) 1 applic TP DAILY [facility] Last Admin: 08/16/16 09:37 Dose: 1 applic Nystatin (Nystatin Oral Suspension -) 500,000 units PO Q6HPO [facility] Last Admin: 08/16/16 06:19 Dose: 500,000 units Ondansetron HCl (Zofran Injection) 4 mg IVPB Q6H PRN PRN Reason: NAUSEA Potassium Chloride (K-Dur -) 40 meq PO BID [facility] Last Admin: 08/16/16 09:36 Dose: 40 meq Tamsulosin HCl (Flomax -) 0.4 mg PO DAILY@0830 [facility] Last Admin: 08/16/16 09:36 Dose: 0.4 mg Vancomycin HCl (Vancomycin Oral Solution) 125 mg PO Q6HPO [facility] Last Admin: 08/16/16 06:20 Dose: 2.5 ml CBC, BMP 08/16/16 06:00 08/16/16 06:00 Microbiology 08/02/16 07:15 Blood - Peripheral Venous Blood Culture - Preliminary NO GROWTH OBTAINED AFTER 24 HOURS, INCUBATION TO CONTINUE FOR 4 DAYS. 08/02/16 06:55 Blood - Peripheral Venous Blood Culture - Preliminary NO GROWTH OBTAINED AFTER 24 HOURS, INCUBATION TO CONTINUE FOR 4 DAYS. A&P Hypernatremia In the setting of poor PO intake. Na 155 today. Will need IV fluids. Start 1/2 NS @ 50 ml/hr. Renal following the patient. ?? Hydrocortisone IV contributing as well. Code(s): E87.0 - HYPEROSMOLALITY AND HYPERNATREMIA Leukocytosis Trending up. Cultures ordered. Chest x ray ordered. ID on the case. C diff colitis Assessment/Plan: - Improving. -Continue oral vancomycin. Code(s): R19.7 - DIARRHEA, UNSPECIFIED Qualifiers: Diarrhea type: unspecified type Qualified Code(s): R19.7 - Diarrhea, unspecified Hypothermia Resolved. BP maintaining. Anemia Assessment/Plan: -chronic and stable Code(s): D64.9 - ANEMIA, UNSPECIFIED Qualifiers: Anemia type: other cause Other causes of anemia: other cause, not classified Qualified Code(s): D64.89 - Other specified anemias Chronic systolic CHF (congestive heart failure) Assessment/Plan: -not in exacerbation. Check BNP. Code(s): I50.22 - CHRONIC SYSTOLIC (CONGESTIVE) HEART FAILURE CAD (coronary artery disease) -continue home regimen -cardiology following Code(s): I25.10 - ATHSCL HEART DISEASE OF [place] CORONARY ARTERY W/O ANG PCTRS HTN (hypertension) Assessment/Plan: Code(s): I10 - ESSENTIAL (PRIMARY) HYPERTENSION Blood pressure improved. Off BP meds. Bradycardia Cardiology follow up appreciated. Hypothyroidism Repeat TSh 2.19 Continue levothyroxine 25 mcg daily. Endocrine consult reviewed and appreciated. Hypokalemia Potassium repleted Depression/suicidal thoughts Cheerful. Psych consulted.
[2016-08-16] MEDS ORDERED: POTASSIUM CHLORIDE 10 MEQ in SODIUM CHLORIDE 0.45% 1,000 ML IVPB SCH (11:00)
--- NOTE | 2016-08-16 11:14 | PN ---
Progress Note (short form) - Note Progress Note: Renal follow up for Metabolic acidosis and Hypernatremia Pt seen and examined at the bedside no acute complaints rectal tube with dark diarrhea denies any abd pain Vital Signs Temperature 96.4 F L 08/16/16 06:00 Pulse Rate 62 08/16/16 06:00 Respiratory Rate 20 08/16/16 06:00 Blood Pressure 127/65 08/16/16 06:00 O2 Sat by Pulse Oximetry (%) 97 08/15/16 22:00 Intake & Output 08/13/16 08/14/16 08/15/16 08/16/16 23:59 23:59 23:59 23:59 Intake Total 914 690 1048 150 Output Total 300 Balance 530 540 700 150 Weight 163 lb 8 oz 148 lb 6.4 oz Gen: NAD, on NC CVS: RRR Lungs :Dec Bs at lung bases but no rales, wheeze Abd: soft NT/ND Ext: UE edema, No LE edema Neuro: Awake and alert CBC, BMP 08/16/16 06:00 08/16/16 06:00 Laboratory Tests 08/16/16 06:00 Calcium 8.3 L Phosphorus 2.0 L Magnesium 1.9 Albumin 1.5 L Current Medications Acetaminophen (Tylenol -) 650 mg PO Q4H PRN PRN Reason: FEVER OR PAIN Ascorbic Acid (Vitamin C -) 500 mg PO TID [facility] Last Admin: 08/16/16 06:19 Dose: 500 mg Aspirin (Asa -) 81 mg PO BID [facility] Last Admin: 08/16/16 09:36 Dose: 81 mg Collagenase (Santyl -) 1 applic TP DAILY [facility] Last Admin: 08/16/16 09:38 Dose: 1 applic Cyanocobalamin (Vitamin B12 -) 1,000 mcg PO DAILY [facility] Last Admin: 08/16/16 09:36 Dose: 1,000 mcg Enoxaparin Sodium (Lovenox -) 40 mg SQ DAILY [facility] Last Admin: 08/16/16 09:35 Dose: 40 mg Ferrous Sulfate (Feosol -) 325 mg PO TID [facility] Last Admin: 08/16/16 06:19 Dose: 325 mg Folic Acid (Folic Acid -) 1 mg PO DAILY [facility] Last Admin: 08/16/16 09:36 Dose: 1 mg Guaifenesin (Robitussin -) 10 ml PO Q8H PRN Potassium Chloride 10 meq/ (Sodium Chloride) 1,005 mls @ 50 mls/hr IVPB Q24H [facility] Insulin Aspart (Novolog Vial Sliding Scale -) 1 vial SQ ACHS [facility] PRN Reason: Protocol Last Admin: 08/16/16 06:21 Dose: Not Given Levothyroxine Sodium (Synthroid -) 25 mcg PO DAILY@0700 [facility] Last Admin: 08/16/16 06:19 Dose: 25 mcg Multivitamins/Minerals/Vitamin C (Tab-A-Vit -) 1 tab PO DAILY [facility] Last Admin: 08/16/16 09:36 Dose: 1 tab Nystatin (Nystop Powder -) 1 applic TP DAILY [facility] Last Admin: 08/16/16 09:37 Dose: 1 applic Nystatin (Nystatin Oral Suspension -) 500,000 units PO Q6HPO [facility] Last Admin: 08/16/16 06:19 Dose: 500,000 units Ondansetron HCl (Zofran Injection) 4 mg IVPB Q6H PRN PRN Reason: NAUSEA Potassium Chloride (K-Dur -) 40 meq PO BID [facility] Last Admin: 08/16/16 09:36 Dose: 40 meq Tamsulosin HCl (Flomax -) 0.4 mg PO DAILY@0830 [facility] Last Admin: 08/16/16 09:36 Dose: 0.4 mg Vancomycin HCl (Vancomycin Oral Solution) 125 mg PO Q6HPO [facility] Last Admin: 08/16/16 06:20 Dose: 2.5 ml A/P 80 year old Gentleman with PMhx of AAA, Hypertension, GERD, DM Type 2, Anemia, C. Diff colitis, Hyperlipidemia, CAD with Hx of [place] presented with hypothermia and found to have Sepsis related to UTI and C. Diff Colitis with diarrhea with metabolic acidosis and hypernatremia. #Metabolic acidosis (NAG) secondary to GI losses start sodium bicarb 650mg BID #Hypernatremia water deficit is 4.3L start D5W at 60cc per hour #Sepsis/Hypothermia/Cdiff on IV Flagyl and PO Vanco started on Hydrocortisone IV with improvement in BP #Hypophosphatemia continue netraphos BID #Hypokalemia KCL 40meq PO daily Medardo Huerta DO
--- NOTE | 2016-08-16 11:39 | PN ---
Progress Note (short form) - Note Progress Note: Resting in NAD on NC O2. Denies shortness of breath or chest pain. Some mild nonproductive cough. CXR : No gross change in bilateral pleural effusions Intake & Output 08/13/16 08/14/16 08/15/16 08/16/16 23:59 23:59 23:59 23:59 Intake Total 859 050 1845 150 Output Total 300 Balance 530 540 700 150 Weight 163 lb 8 oz 148 lb 6.4 oz Last Vital Signs Temp Pulse Resp BP Pulse Ox 96.4 F L 62 20 127/65 97 08/16/16 06:00 08/16/16 06:00 08/16/16 06:00 08/16/16 06:00 08/15/16 22:00 Active Medications Acetaminophen (Tylenol -) 650 mg PO Q4H PRN PRN Reason: FEVER OR PAIN Ascorbic Acid (Vitamin C -) 500 mg PO TID [facility] Last Admin: 08/16/16 06:19 Dose: 500 mg Aspirin (Asa -) 81 mg PO BID [facility] Last Admin: 08/16/16 09:36 Dose: 81 mg Collagenase (Santyl -) 1 applic TP DAILY [facility] Last Admin: 08/16/16 09:38 Dose: 1 applic Cyanocobalamin (Vitamin B12 -) 1,000 mcg PO DAILY [facility] Last Admin: 08/16/16 09:36 Dose: 1,000 mcg Enoxaparin Sodium (Lovenox -) 40 mg SQ DAILY [facility] Last Admin: 08/16/16 09:35 Dose: 40 mg Ferrous Sulfate (Feosol -) 325 mg PO TID [facility] Last Admin: 08/16/16 06:19 Dose: 325 mg Folic Acid (Folic Acid -) 1 mg PO DAILY [facility] Last Admin: 08/16/16 09:36 Dose: 1 mg Guaifenesin (Robitussin -) 10 ml PO Q8H PRN Potassium Chloride 40 meq/ (Dextrose) 1,020 mls @ 60 mls/hr IVPB Q17H [facility] Insulin Aspart (Novolog Vial Sliding Scale -) 1 vial SQ ACHS [facility] PRN Reason: Protocol Last Admin: 08/16/16 06:21 Dose: Not Given Levothyroxine Sodium (Synthroid -) 25 mcg PO DAILY@0700 [facility] Last Admin: 08/16/16 06:19 Dose: 25 mcg Multivitamins/Minerals/Vitamin C (Tab-A-Vit -) 1 tab PO DAILY [facility] Last Admin: 08/16/16 09:36 Dose: 1 tab Nystatin (Nystop Powder -) 1 applic TP DAILY [facility] Last Admin: 08/16/16 09:37 Dose: 1 applic Nystatin (Nystatin Oral Suspension -) 500,000 units PO Q6HPO [facility] Last Admin: 08/16/16 06:19 Dose: 500,000 units Ondansetron HCl (Zofran Injection) 4 mg IVPB Q6H PRN PRN Reason: NAUSEA Potassium Chloride (K-Dur -) 40 meq PO BID [facility] Last Admin: 08/16/16 09:36 Dose: 40 meq Potassium Phos/Sodium Phos (Phos-Nak Packet -) 1 packet PO BID [facility] Sodium Bicarbonate (Sodium Bicarbonate -) 650 mg PO BID [facility] Tamsulosin HCl (Flomax -) 0.4 mg PO DAILY@0830 [facility] Last Admin: 08/16/16 09:36 Dose: 0.4 mg Vancomycin HCl (Vancomycin Oral Solution) 125 mg PO Q6HPO [facility] Last Admin: 08/16/16 06:20 Dose: 2.5 ml Gen: NAD, weak appearing Heart: RRR Lung: scattered rhonchi Abd: soft, nontender Ext: no edema Laboratory Results - last 24 hr 08/15/16 08/15/16 08/15/16 11:19 16:50 17:01 WBC 20.5 H RBC 2.61 L Hgb 8.3 L Hct 27.4 L MCV 105.2 H MCHC 30.2 L RDW 17.3 H Plt Count 153 MPV 10.4 Neutrophils % 93.0 H Lymphocytes % 2.0 L D Monocytes % 2.0 L Eosinophils % Basophils % Band Neutrophils 2.0 Differential Comment Manual diff done Platelet Estimate Adequate Platelet Comment Few giant plts Poikilocytosis 1+ Macrocytosis 2+ Tear Drop Cells Rare Ovalocytes 1+ Morphology Comment Slide scanned Sodium Potassium Chloride Carbon Dioxide Anion Gap BUN Creatinine Creat Clearance w eGFR POC Glucometer 165 85 Random Glucose Calcium Phosphorus Magnesium Total Bilirubin AST ALT Alkaline Phosphatase Total Protein Albumin 08/15/16 08/16/16 08/16/16 21:14 05:16 06:00 WBC RBC Hgb Hct MCV MCHC RDW Plt Count MPV Neutrophils % Lymphocytes % Monocytes % Eosinophils % Basophils % Band Neutrophils Differential Comment Platelet Estimate Platelet Comment Poikilocytosis Macrocytosis Tear Drop Cells Ovalocytes Morphology Comment Sodium 155 H Potassium 3.6 Chloride 125 H Carbon Dioxide 18 L Anion Gap 12 BUN 21 H Creatinine 0.6 L Creat Clearance w eGFR > 60 POC Glucometer 99 82 Random Glucose 60 L D Calcium 8.3 L Phosphorus 2.0 L Magnesium 1.9 Total Bilirubin 0.4 AST 26 ALT 20 Alkaline Phosphatase 87 Total Protein 4.8 L Albumin 1.5 L 08/16/16 06:00 WBC 22.4 H RBC 2.43 L Hgb 8.0 L Hct 25.2 L MCV 103.8 H MCHC 31.6 L RDW 17.5 H Plt Count 144 MPV 10.6 Neutrophils % 94.0 H Lymphocytes % 4.2 L D Monocytes % 1.6 L Eosinophils % 0.1 Basophils % 0.1 Band Neutrophils Differential Comment Platelet Estimate Platelet Comment Poikilocytosis Macrocytosis Tear Drop Cells Ovalocytes Morphology Comment Sodium Potassium Chloride Carbon Dioxide Anion Gap BUN Creatinine Creat Clearance w eGFR POC Glucometer Random Glucose Calcium Phosphorus Magnesium Total Bilirubin AST ALT Alkaline Phosphatase Total Protein Albumin A/P UTI C Diff Colitis Pneumonia vs Atelectasis Septic Shock resolving CAD LV Systolic Dysfunction HTN - ABX per ID - Lasix as tolerated - monitor urine output, creatinine - replete lytes - aspiration precautions - attempt incentive spirometry - DVT prophylaxis Dr Salguero
[2016-08-16] MEDS ORDERED: FUROSEMIDE 40 MG TABLET (FP) PO ONE (11:45)
[2016-08-16] MEDS ORDERED: FUROSEMIDE 40 MG/4 ML INJECTABLE VIAL ONE (12:05)
[2016-08-16] MEDS: SODIUM BICARBONATE 650 MG TABLET PO SCH ×2 (12:09→22:44)
[2016-08-16] MEDS: NAPH,MB-DB/K PH,MBDB POWDER PACKET PO SCH ×2 (12:09→22:44)
[2016-08-16] MEDS: POTASSIUM CHLORIDE 40 MEQ in DEXTROSE 5%-WATER - 1,000 ML IVPB SCH (13:15)
--- NOTE | 2016-08-16 13:32 | PN ---
Progress Note, Physician History of Present Illness: patient clinically looks stable no complaints still with quite a bit of dirrhoea awake and alert - Current Medication List Current Medications: Active Medications Acetaminophen (Tylenol -) 650 mg PO Q4H PRN PRN Reason: FEVER OR PAIN Ascorbic Acid (Vitamin C -) 500 mg PO TID [facility] Last Admin: 08/16/16 13:15 Dose: 500 mg Aspirin (Asa -) 81 mg PO BID [facility] Last Admin: 08/16/16 09:36 Dose: 81 mg Collagenase (Santyl -) 1 applic TP DAILY [facility] Last Admin: 08/16/16 09:38 Dose: 1 applic Cyanocobalamin (Vitamin B12 -) 1,000 mcg PO DAILY [facility] Last Admin: 08/16/16 09:36 Dose: 1,000 mcg Enoxaparin Sodium (Lovenox -) 40 mg SQ DAILY [facility] Last Admin: 08/16/16 09:35 Dose: 40 mg Ferrous Sulfate (Feosol -) 325 mg PO TID [facility] Last Admin: 08/16/16 13:15 Dose: 325 mg Folic Acid (Folic Acid -) 1 mg PO DAILY [facility] Last Admin: 08/16/16 09:36 Dose: 1 mg Guaifenesin (Robitussin -) 10 ml PO Q8H PRN Potassium Chloride 40 meq/ (Dextrose) 1,020 mls @ 60 mls/hr IVPB Q17H [facility] Last Admin: 08/16/16 13:15 Dose: 60 mls/hr Insulin Aspart (Novolog Vial Sliding Scale -) 1 vial SQ ACHS [facility] PRN Reason: Protocol Last Admin: 08/16/16 11:16 Dose: Not Given Levothyroxine Sodium (Synthroid -) 25 mcg PO DAILY@0700 [facility] Last Admin: 08/16/16 06:19 Dose: 25 mcg Multivitamins/Minerals/Vitamin C (Tab-A-Vit -) 1 tab PO DAILY [facility] Last Admin: 08/16/16 09:36 Dose: 1 tab Nystatin (Nystop Powder -) 1 applic TP DAILY [facility] Last Admin: 08/16/16 09:37 Dose: 1 applic Nystatin (Nystatin Oral Suspension -) 500,000 units PO Q6HPO [facility] Last Admin: 08/16/16 12:09 Dose: 500,000 units Ondansetron HCl (Zofran Injection) 4 mg IVPB Q6H PRN PRN Reason: NAUSEA Potassium Chloride (K-Dur -) 40 meq PO BID [facility] Last Admin: 08/16/16 09:36 Dose: 40 meq Potassium Phos/Sodium Phos (Phos-Nak Packet -) 1 packet PO BID [facility] Last Admin: 08/16/16 12:09 Dose: 1 packet Sodium Bicarbonate (Sodium Bicarbonate -) 650 mg PO BID [facility] Last Admin: 08/16/16 12:09 Dose: 650 mg Tamsulosin HCl (Flomax -) 0.4 mg PO DAILY@0830 [facility] Last Admin: 08/16/16 09:36 Dose: 0.4 mg Vancomycin HCl (Vancomycin Oral Solution) 125 mg PO Q6HPO [facility] Last Admin: 08/16/16 12:11 Dose: 5 ml - Objective Vital Signs: Vital Signs Temperature 96.4 F L 08/16/16 06:00 Pulse Rate 62 08/16/16 06:00 Respiratory Rate 20 08/16/16 06:00 Blood Pressure 127/65 08/16/16 06:00 O2 Sat by Pulse Oximetry (%) 97 08/15/16 22:00 Constitutional: Yes: No Distress, Calm Cardiovascular: Yes: S1, S2 Respiratory: Yes: Regular, Poor Air Entry (at the bases) Gastrointestinal: Yes: Normal Bowel Sounds, Soft, Other (dirrhoea still continuning) Musculoskeletal: Yes: WNL Extremities: Yes: WNL Integumentary: Yes: Other Neurological: Yes: Alert Psychiatric: Yes: Alert Labs: CBC, BMP 08/16/16 06:00 08/16/16 06:00 INR, PTT INR 1.17 (0.82-1.09) H 07/26/16 19:07 Assessment/Plan Problem List - Problems (1) Septic shock Code(s): A41.9 - SEPSIS, UNSPECIFIED ORGANISM R65.21 - SEVERE SEPSIS WITH SEPTIC SHOCK (2) HCAP (healthcare-associated pneumonia) Code(s): J18.9 - PNEUMONIA, UNSPECIFIED ORGANISM (3) UTI (urinary tract infection) Code(s): N39.0 - URINARY TRACT INFECTION, SITE NOT SPECIFIED (4) Diarrhea Code(s): R19.7 - DIARRHEA, UNSPECIFIED Qualifiers: Diarrhea type: unspecified type Qualified Code(s): R19.7 - Diarrhea, unspecified (5) Chest pain Code(s): R07.9 - CHEST PAIN, UNSPECIFIED (6) Anemia Code(s): D64.9 - ANEMIA, UNSPECIFIED Qualifiers: Anemia type: other cause Other causes of anemia: other cause, not classified Qualified Code(s): D64.89 - Other specified anemias (7) Chronic systolic CHF (congestive heart failure) Code(s): I50.22 - CHRONIC SYSTOLIC (CONGESTIVE) HEART FAILURE (8) CAD (coronary artery disease) Code(s): I25.10 - ATHSCL HEART DISEASE OF [place] CORONARY ARTERY W/O ANG PCTRS (9) Dehydration Code(s): E86.0 - DEHYDRATION (10) HTN (hypertension) Code(s): I10 - ESSENTIAL (PRIMARY) HYPERTENSION (11) Hypernatremia Code(s): E87.0 - HYPEROSMOLALITY AND HYPERNATREMIA 12 hypothermia 13 cdiff 14 dehydration i have looked at the xray chest and also all the numbers his wbc is going up there can be a chance that he has infection but i doubt it at the moment i think him loosing lot of fluids is probably causing the problems i am going to repeat the cdiff studies if the cdiff studies are negative we should give him something to stem the dirrhoea if cdiff is still positive then we will add iv flagyl or increase dose of vanco plan continue current mgmt hydration watch for wbc no abx at this moment will see how the trend goes after hydration rest as per primary
--- NOTE | 2016-08-16 16:06 | PN ---
Progress Note, VP - Note Progress Note: Selected Entries 08/15/16 08/15/16 08/15/16 09:56 10:00 14:56 Breakfast 50% Lunch 50% Supper Temperature 96.7 F L 96.3 F L 08/15/16 08/15/16 08/15/16 17:24 22:00 23:25 Breakfast Lunch Supper 50% Temperature 96.4 F L 96.8 F L 08/16/16 08/16/16 08/16/16 06:00 10:00 11:41 Breakfast 50% Lunch Supper Temperature 96.4 F L 97.1 F L 08/16/16 15:17 Breakfast Lunch 50% Supper Temperature 95.7 F L Laboratory Tests 08/14/16 08/15/16 08/16/16 10:30 16:50 06:00 WBC 17.0 H 20.5 H 22.4 H On thinned out puree and nectar thick liquid. Nystatin ordered 08/13. Still with oral holding with puree, but with good ,mgmt of nectar thick liquid. Thrush better but still with white patches on tongue and inferior left buccal cavity. No longer c/o burning in throat while drinking. Rec: mix purre with liquid to drink with improved oropharyngeal coordination and increase PO intake. Encourage ensure compact and magic cup,thinned out with a little milk or water.
[2016-08-16] MEDS: METRONIDAZOLE 500 MG PREMIXED 100 ML IVPB SCH (17:48)
--- NOTE | 2016-08-16 23:37 | PN ---
Progress Note (short form) - Note Progress Note: s: no sob palps dizzy cp. + cough o: Current Medications Acetaminophen (Tylenol -) 650 mg PO Q4H PRN PRN Reason: FEVER OR PAIN Ascorbic Acid (Vitamin C -) 500 mg PO TID [facility] Last Admin: 08/16/16 22:44 Dose: 500 mg Aspirin (Asa -) 81 mg PO BID [facility] Last Admin: 08/16/16 22:44 Dose: 81 mg Collagenase (Santyl -) 1 applic TP DAILY [facility] Last Admin: 08/16/16 09:38 Dose: 1 applic Cyanocobalamin (Vitamin B12 -) 1,000 mcg PO DAILY [facility] Last Admin: 08/16/16 09:36 Dose: 1,000 mcg Enoxaparin Sodium (Lovenox -) 40 mg SQ DAILY [facility] Last Admin: 08/16/16 09:35 Dose: 40 mg Ferrous Sulfate (Feosol -) 325 mg PO TID [facility] Last Admin: 08/16/16 22:44 Dose: 325 mg Folic Acid (Folic Acid -) 1 mg PO DAILY [facility] Last Admin: 08/16/16 09:36 Dose: 1 mg Guaifenesin (Robitussin -) 10 ml PO Q8H PRN Potassium Chloride 40 meq/ (Dextrose) 1,020 mls @ 60 mls/hr IVPB Q17H [facility] Last Admin: 08/16/16 13:15 Dose: 60 mls/hr Metronidazole (Flagyl 500mg Premixed Ivpb -) 100 mls @ 100 mls/hr IVPB Q8H-IV [facility] Last Admin: 08/16/16 17:48 Dose: 100 mls/hr Insulin Aspart (Novolog Vial Sliding Scale -) 1 vial SQ ACHS [facility] PRN Reason: Protocol Last Admin: 08/16/16 22:47 Dose: Not Given Levothyroxine Sodium (Synthroid -) 25 mcg PO DAILY@0700 [facility] Last Admin: 08/16/16 06:19 Dose: 25 mcg Multivitamins/Minerals/Vitamin C (Tab-A-Vit -) 1 tab PO DAILY [facility] Last Admin: 08/16/16 09:36 Dose: 1 tab Nystatin (Nystop Powder -) 1 applic TP DAILY [facility] Last Admin: 08/16/16 09:37 Dose: 1 applic Nystatin (Nystatin Oral Suspension -) 500,000 units PO Q6HPO [facility] Last Admin: 08/16/16 17:50 Dose: 500,000 units Ondansetron HCl (Zofran Injection) 4 mg IVPB Q6H PRN PRN Reason: NAUSEA Potassium Chloride (K-Dur -) 40 meq PO BID [facility] Last Admin: 08/16/16 22:44 Dose: 40 meq Potassium Phos/Sodium Phos (Phos-Nak Packet -) 1 packet PO BID [facility] Last Admin: 08/16/16 22:44 Dose: 1 packet Sodium Bicarbonate (Sodium Bicarbonate -) 650 mg PO BID [facility] Last Admin: 08/16/16 22:44 Dose: 650 mg Tamsulosin HCl (Flomax -) 0.4 mg PO DAILY@0830 [facility] Last Admin: 08/16/16 09:36 Dose: 0.4 mg Vancomycin HCl (Vancomycin Oral Solution) 125 mg PO Q6HPO [facility] Last Admin: 08/16/16 17:51 Dose: 5 ml Vital Signs - 24 hr 08/16/16 08/16/16 08/16/16 06:00 09:00 10:00 Temperature 96.4 F L 97.1 F L Pulse Rate 62 57 L Respiratory 20 16 16 Rate Blood Pressure 127/65 102/56 08/16/16 08/16/16 15:17 16:30 Temperature 95.7 F L 97.2 F L Pulse Rate 73 77 Respiratory 20 20 Rate Blood Pressure 87/55 114/62 Intake & Output 08/14/16 08/15/16 08/16/16 08/17/16 07:59 07:59 07:59 07:59 Intake Total 630 042 9980 390 Output Total 300 Balance 530 540 850 390 Weight 148 lb 6.4 oz nad no jvd, cachectic rrr s1s2 no mrg bibasilar dullness awake, alert, appropriate abd nt nd pos bs no jaundice diaphoresis UE edema. no LE edema. CBC, BMP 08/16/16 06:00 08/16/16 06:00 ecg 07/26/16: sr 59, nl intervals, no ischemic changes initial cxr: no chf --> subsequent cxr: bibasilar densities with left pleural effusion. 08/10 cxr: mod rt pl effusion new. 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 sepsis: -cont abx per ID htn: -with infection his bp on low side, holding htn meds except for flomax. cad/mi: -prior mibi showing infarct, no ischemia -no signs acs, trop neg x2 -cp here seems [facility] after a recent fall -cont home asa -? not on statin per [place] med list--defer to outpt treatment and review or prior chart in [place] chronic systolic chf, EF normalized on echo here -previously with mod reduced EF on nuclear 2011--? etiology at that time -echo here showing nl overall LVEF -initially no signs vol overload here, then after IVFs had worsening pleural effusions/edema. Ongoing IVF requirement for hypernatremia. bradycardia: -pt with known sinus tashia evaluated with holter on prior admit that showed no pathologic bradycardia -tele here with sr in 40s at times so have stopped bb, avoid meds that cause bradycardia VTach: -10 beat run NSVT on tele 08/09 -replete lytes prn -EF preserved -holding BB due to bradycardia--no compelling indication for bb for NSVT in setting of sepsis, with normal LV fxn 3rd spacing/UE edema/hypoalb -UE elevation as indicated prn - on IVF for hypernatremia. Layering effusions on CXR. Ok to defer lasix if pulmonary status remains stable.
[2016-08-17] MEDS: VANCOMYCIN 250 MG/5 ML ORAL SOLUTION PO SCH ×4 (00:40→17:54)
[2016-08-17] MEDS: NYSTATIN 500,000 UNITS/5 ML SUSPENSION PO SCH ×5 (00:45→23:07)
[2016-08-17] MEDS: METRONIDAZOLE 500 MG PREMIXED 100 ML IVPB SCH ×3 (01:45→17:30)
[2016-08-17] MEDS: POTASSIUM CHLORIDE 40 MEQ in DEXTROSE 5%-WATER - 1,000 ML IVPB SCH ×2 (04:36→23:11)
[2016-08-17] MEDS ORDERED: PT OWN MED DRAWER 7, Y5N ONE (06:02)
[2016-08-17] MEDS: INSULIN SLIDING SCALE (NOVOLOG) 1 VIAL SQ SCH ×4 (06:22→23:13)
[2016-08-17] MEDS: ASCORBIC ACID 500 MG TABLET (FP) PO SCH ×3 (06:23→23:06)
[2016-08-17] MEDS: LEVOTHYROXINE NA 25 MCG TABLET (FP) PO SCH (06:23)
[2016-08-17] MEDS: FERROUS SO4 325 MG TABLET (FP) PO SCH ×3 (06:23→23:07)
[2016-08-17 08:53] LABS: MCH 32.6 pg (25.7-33.7); MCHC 31.4 g/dl (32.0-35.9); MEAN CELL VOLUME 103.9 fl (80-96); PLATELET COUNT 132 K/MM3 (134-434); RDW 17.9 % (11.9-15.9); WHITE BLOOD COUNT 21.4 K/mm3 (4.0-10.0)
[2016-08-17 09:20] LABS: ALBUMIN 1.4 g/dl (3.4-5.0); CALCIUM 8.4 mg/dL (8.5-10.1); GLUCOSE,RANDOM 72 mg/dL (74-106); MAGNESIUM 1.7 mg/dL (1.8-2.4)
[2016-08-17] MEDS: FOLIC ACID 1 MG TABLET (FP) PO SCH (09:20)
[2016-08-17] MEDS: ASPIRIN 81 MG CHEWABLE TABLETS PO SCH ×2 (09:20→23:07)
[2016-08-17] MEDS: ENOXAPARIN NA (PORCINE) 40 MG/0.4 ML DISP.SYRIN SQ SCH (09:20)
[2016-08-17] MEDS: POTASSIUM CHLORIDE TABS 20 MEQ TABLET.ER (FP) PO SCH ×2 (09:20→23:06)
[2016-08-17] MEDS: TAMSULOSIN HCL 0.4 MG CAP.ER.24H (FP) PO SCH (09:20)
[2016-08-17] MEDS: MULTIVITAMINS (DAILY MVI) TABLET (FP) PO SCH (09:20)
[2016-08-17] MEDS: CYANOCOBALAMIN 1,000 MCG TABLET (FP) PO SCH (09:20)
[2016-08-17] MEDS: SODIUM BICARBONATE 650 MG TABLET PO SCH ×2 (09:20→23:06)
[2016-08-17] MEDS: COLLAGENASE CLOSTRIDIUM HIST. 30 GRAMS TUBE TP SCH (09:21)
[2016-08-17] MEDS: NAPH,MB-DB/K PH,MBDB POWDER PACKET PO SCH ×2 (09:21→23:06)
[2016-08-17] MEDS: NYSTATIN POWDER 100,000 UNITS/GM - 15 GM TOPICAL POWDER TP SCH (09:21)
[2016-08-17 09:27] LABS: ALK PHOS 92 U/L (45-117); ANION GAP 10 (8-16); BILIRUBIN,TOTAL 0.4 mg/dL (0.2-1.0); CO2 17 mmol/L (21-32); COCKROFT - GAULT 98.49; CREATININE 0.6 mg/dL (0.7-1.3); PHOSPHOROUS 1.9 mg/dL (2.5-4.9); SGOT/AST 44 U/L (15-37); SGPT/ALT 25 U/L (12-78); TOT PROT 4.6 g/dl (6.4-8.2)
--- NOTE | 2016-08-17 10:09 | PN ---
Progress Note (short form) - Note Progress Note: Resting in NAD on RA. Drowsy but arousable. Denies shortness of breath or chest pain. Some mild nonproductive cough. CXR : No gross change in bilateral pleural effusions Intake & Output 08/14/16 08/15/16 08/16/16 08/17/16 23:59 23:59 23:59 23:59 Intake Total 540 1000 540 232 Output Total 300 650 Balance 540 700 540 -418 Weight 148 lb 6.4 oz 159 lb Last Vital Signs Temp Pulse Resp BP Pulse Ox 99.4 F 59 L 20 80/57 97 08/17/16 06:52 08/17/16 06:52 08/17/16 06:52 08/17/16 06:52 08/15/16 22:00 Active Medications Acetaminophen (Tylenol -) 650 mg PO Q4H PRN PRN Reason: FEVER OR PAIN Ascorbic Acid (Vitamin C -) 500 mg PO TID [facility] Last Admin: 08/17/16 06:23 Dose: 500 mg Aspirin (Asa -) 81 mg PO BID [facility] Last Admin: 08/17/16 09:20 Dose: 81 mg Collagenase (Santyl -) 1 applic TP DAILY [facility] Last Admin: 08/17/16 09:21 Dose: 1 applic Cyanocobalamin (Vitamin B12 -) 1,000 mcg PO DAILY [facility] Last Admin: 08/17/16 09:20 Dose: 1,000 mcg Ferrous Sulfate (Feosol -) 325 mg PO TID [facility] Last Admin: 08/17/16 06:23 Dose: 325 mg Folic Acid (Folic Acid -) 1 mg PO DAILY [facility] Last Admin: 08/17/16 09:20 Dose: 1 mg Guaifenesin (Robitussin -) 10 ml PO Q8H PRN Potassium Chloride 40 meq/ (Dextrose) 1,020 mls @ 60 mls/hr IVPB Q17H [facility] Last Admin: 08/17/16 04:36 Dose: Not Given Metronidazole (Flagyl 500mg Premixed Ivpb -) 100 mls @ 100 mls/hr IVPB Q8H-IV [facility] Last Admin: 08/17/16 09:20 Dose: 100 mls/hr Insulin Aspart (Novolog Vial Sliding Scale -) 1 vial SQ ACHS [facility] PRN Reason: Protocol Last Admin: 08/17/16 06:22 Dose: Not Given Levothyroxine Sodium (Synthroid -) 25 mcg PO DAILY@0700 [facility] Last Admin: 08/17/16 06:23 Dose: 25 mcg Multivitamins/Minerals/Vitamin C (Tab-A-Vit -) 1 tab PO DAILY [facility] Last Admin: 08/17/16 09:20 Dose: 1 tab Nystatin (Nystop Powder -) 1 applic TP DAILY [facility] Last Admin: 08/17/16 09:21 Dose: 1 applic Nystatin (Nystatin Oral Suspension -) 500,000 units PO Q6HPO [facility] Last Admin: 08/17/16 06:23 Dose: 500,000 units Ondansetron HCl (Zofran Injection) 4 mg IVPB Q6H PRN PRN Reason: NAUSEA Potassium Chloride (K-Dur -) 40 meq PO BID [facility] Last Admin: 08/17/16 09:20 Dose: 40 meq Potassium Phos/Sodium Phos (Phos-Nak Packet -) 1 packet PO BID [facility] Last Admin: 08/17/16 09:21 Dose: 1 packet Sodium Bicarbonate (Sodium Bicarbonate -) 650 mg PO BID [facility] Last Admin: 08/17/16 09:20 Dose: 650 mg Tamsulosin HCl (Flomax -) 0.4 mg PO DAILY@0830 [facility] Last Admin: 08/17/16 09:20 Dose: 0.4 mg Vancomycin HCl (Vancomycin Oral Solution) 125 mg PO Q6HPO [facility] Last Admin: 08/17/16 06:22 Dose: 125 ml Gen: NAD, weak appearing Heart: RRR Lung: scattered rhonchi Abd: soft, nontender Ext: no edema Laboratory Results - last 24 hr 08/16/16 08/16/16 08/17/16 17:34 22:46 00:12 WBC RBC Hgb Hct MCV MCHC RDW Plt Count MPV Neutrophils % Lymphocytes % Sodium Potassium Chloride Carbon Dioxide Anion Gap BUN Creatinine Creat Clearance w eGFR POC Glucometer 204 50 57 Random Glucose Calcium Phosphorus Magnesium Total Bilirubin AST ALT Alkaline Phosphatase B-Natriuretic Peptide Total Protein Albumin 08/17/16 08/17/16 08/17/16 04:11 06:21 08:20 WBC 21.4 H RBC 2.35 L Hgb 7.7 L Hct 24.4 L MCV 103.9 H MCHC 31.4 L RDW 17.9 H Plt Count 132 L MPV 10.0 Neutrophils % Y Lymphocytes % Y Sodium Potassium Chloride Carbon Dioxide Anion Gap BUN Creatinine Creat Clearance w eGFR POC Glucometer 109 75 Random Glucose Calcium Phosphorus Magnesium Total Bilirubin AST ALT Alkaline Phosphatase B-Natriuretic Peptide Total Protein Albumin 08/17/16 08:20 WBC RBC Hgb Hct MCV MCHC RDW Plt Count MPV Neutrophils % Lymphocytes % Sodium 153 H Potassium 3.7 Chloride 126 H Carbon Dioxide 17 L Anion Gap 10 BUN 21 H Creatinine 0.6 L Creat Clearance w eGFR > 60 POC Glucometer Random Glucose 72 L Calcium 8.4 L Phosphorus 1.9 L Magnesium 1.7 L Total Bilirubin 0.4 AST 44 H D ALT 25 D Alkaline Phosphatase 92 B-Natriuretic Peptide 2546.83 H Total Protein 4.6 L Albumin 1.4 L A/P UTI C Diff Colitis Pneumonia vs Atelectasis Septic Shock resolving CAD LV Systolic Dysfunction HTN - ABX per ID - Lasix as tolerated - monitor urine output, creatinine - aspiration precautions - attempt incentive spirometry - DVT prophylaxis Dr Salguero
--- NOTE | 2016-08-17 10:39 | PN ---
Progress Note (short form) - Note Progress Note: O/E No acute event overnight. Poor PO intake. Afebrile. Cough improved. Denies chest pain, shortness of breath, palpitation or dizziness. Vital Signs Period Temp Pulse Resp BP Sys/Martino Pulse Ox Last 24 Hr 95.7 F-99.4 F 59-77 20-20 80-114/55-62 Heartt regular Lungs air entry decreased bilateral lung base Abd soft Ext no edema Not cold Current Medications Acetaminophen (Tylenol -) 650 mg PO Q4H PRN PRN Reason: FEVER OR PAIN Ascorbic Acid (Vitamin C -) 500 mg PO TID [facility] Last Admin: 08/17/16 06:23 Dose: 500 mg Aspirin (Asa -) 81 mg PO BID [facility] Last Admin: 08/17/16 09:20 Dose: 81 mg Collagenase (Santyl -) 1 applic TP DAILY [facility] Last Admin: 08/17/16 09:21 Dose: 1 applic Cyanocobalamin (Vitamin B12 -) 1,000 mcg PO DAILY [facility] Last Admin: 08/17/16 09:20 Dose: 1,000 mcg Ferrous Sulfate (Feosol -) 325 mg PO TID [facility] Last Admin: 08/17/16 06:23 Dose: 325 mg Folic Acid (Folic Acid -) 1 mg PO DAILY [facility] Last Admin: 08/17/16 09:20 Dose: 1 mg Guaifenesin (Robitussin -) 10 ml PO Q8H PRN Potassium Chloride 40 meq/ (Dextrose) 1,020 mls @ 60 mls/hr IVPB Q17H [facility] Last Admin: 08/17/16 04:36 Dose: Not Given Metronidazole (Flagyl 500mg Premixed Ivpb -) 100 mls @ 100 mls/hr IVPB Q8H-IV [facility] Last Admin: 08/17/16 09:20 Dose: 100 mls/hr Insulin Aspart (Novolog Vial Sliding Scale -) 1 vial SQ ACHS [facility] PRN Reason: Protocol Last Admin: 08/17/16 06:22 Dose: Not Given Levothyroxine Sodium (Synthroid -) 25 mcg PO DAILY@0700 [facility] Last Admin: 08/17/16 06:23 Dose: 25 mcg Multivitamins/Minerals/Vitamin C (Tab-A-Vit -) 1 tab PO DAILY [facility] Last Admin: 08/17/16 09:20 Dose: 1 tab Nystatin (Nystop Powder -) 1 applic TP DAILY [facility] Last Admin: 08/17/16 09:21 Dose: 1 applic Nystatin (Nystatin Oral Suspension -) 500,000 units PO Q6HPO [facility] Last Admin: 08/17/16 06:23 Dose: 500,000 units Ondansetron HCl (Zofran Injection) 4 mg IVPB Q6H PRN PRN Reason: NAUSEA Potassium Chloride (K-Dur -) 40 meq PO BID [facility] Last Admin: 08/17/16 09:20 Dose: 40 meq Potassium Phos/Sodium Phos (Phos-Nak Packet -) 1 packet PO BID [facility] Last Admin: 08/17/16 09:21 Dose: 1 packet Sodium Bicarbonate (Sodium Bicarbonate -) 650 mg PO BID [facility] Last Admin: 08/17/16 09:20 Dose: 650 mg Tamsulosin HCl (Flomax -) 0.4 mg PO DAILY@0830 [facility] Last Admin: 08/17/16 09:20 Dose: 0.4 mg Vancomycin HCl (Vancomycin Oral Solution) 125 mg PO Q6HPO [facility] Last Admin: 08/17/16 06:22 Dose: 125 ml CBC, BMP 08/17/16 08:20 08/17/16 08:20 Microbiology 08/16/16 14:32 Stool Clostridium difficile Antigen (VICTOR M) - Final 08/16/16 14:32 Stool Clostridium difficile Toxin Assay - Final 08/14/16 16:00 Sputum - Endotracheal Suction W/O Vent Gram Stain - Final 08/14/16 16:00 Sputum - Endotracheal Suction W/O Vent Sputum Culture - Preliminary Lactose Fermenting Neg Bacilli Proteus Species A&P Hypernatremia In the setting of poor PO intake. Na 153 today. Slight improvement Continue gentle hydration with D5W @ 50 ml/hr. Renal follow up appreciated Trying to reach son. called twice and left message. Poor PO intake will be an on going issue. Code(s): E87.0 - HYPEROSMOLALITY AND HYPERNATREMIA Leukocytosis Slight improvement. Prelim Cultures negative. C. Diff antigen positive toxin negative with ongoing diarrhea. Chest x ray: atelectasis vs pneumonia Antibiotics as per ID C diff colitis Assessment/Plan: - C.Diff antigen positive with toxin negative with ongoing diarrhea. - needs to be treated. - ID follow up appreciated. Code(s): R19.7 - DIARRHEA, UNSPECIFIED Qualifiers: Diarrhea type: unspecified type Qualified Code(s): R19.7 - Diarrhea, unspecified Hypothermia Resolved. BP maintaining. Anemia Assessment/Plan: -chronic and stable Code(s): D64.9 - ANEMIA, UNSPECIFIED Qualifiers: Anemia type: other cause Other causes of anemia: other cause, not classified Qualified Code(s): D64.89 - Other specified anemias Chronic systolic CHF (congestive heart failure) Assessment/Plan: -not in exacerbation. - BNP- High. - Cardiology follow up appreciated. Code(s): I50.22 - CHRONIC SYSTOLIC (CONGESTIVE) HEART FAILURE CAD (coronary artery disease) -continue home regimen -cardiology following Code(s): I25.10 - ATHSCL HEART DISEASE OF [place] CORONARY ARTERY W/O ANG PCTRS HTN (hypertension) Assessment/Plan: Code(s): I10 - ESSENTIAL (PRIMARY) HYPERTENSION Blood pressure improved. Off BP meds. Bradycardia Cardiology follow up appreciated. Hypothyroidism Repeat TSH 2.19 Continue levothyroxine 25 mcg daily. Endocrine consult reviewed and appreciated. Hypokalemia Potassium repleted Depression/suicidal thoughts Cheerful. Psych consulted. Patient is full code. Tried calling his son who is also his HCP to discuss goals of care. Left message to call back.
[2016-08-17 10:43] LABS: PLATELET ESTIMATE ADEQUATE (NORMAL)
--- NOTE | 2016-08-17 14:02 | PN ---
Progress Note, Physician History of Present Illness: patient stable no new issues still with dirrhoea - Current Medication List Current Medications: Active Medications Acetaminophen (Tylenol -) 650 mg PO Q4H PRN PRN Reason: FEVER OR PAIN Ascorbic Acid (Vitamin C -) 500 mg PO TID [facility] Last Admin: 08/17/16 06:23 Dose: 500 mg Aspirin (Asa -) 81 mg PO BID [facility] Last Admin: 08/17/16 09:20 Dose: 81 mg Collagenase (Santyl -) 1 applic TP DAILY [facility] Last Admin: 08/17/16 09:21 Dose: 1 applic Cyanocobalamin (Vitamin B12 -) 1,000 mcg PO DAILY [facility] Last Admin: 08/17/16 09:20 Dose: 1,000 mcg Ferrous Sulfate (Feosol -) 325 mg PO TID [facility] Last Admin: 08/17/16 06:23 Dose: 325 mg Folic Acid (Folic Acid -) 1 mg PO DAILY [facility] Last Admin: 08/17/16 09:20 Dose: 1 mg Guaifenesin (Robitussin -) 10 ml PO Q8H PRN Potassium Chloride 40 meq/ (Dextrose) 1,020 mls @ 60 mls/hr IVPB Q17H [facility] Last Admin: 08/17/16 04:36 Dose: Not Given Metronidazole (Flagyl 500mg Premixed Ivpb -) 100 mls @ 100 mls/hr IVPB Q8H-IV [facility] Last Admin: 08/17/16 09:20 Dose: 100 mls/hr Insulin Aspart (Novolog Vial Sliding Scale -) 1 vial SQ ACHS [facility] PRN Reason: Protocol Last Admin: 08/17/16 11:49 Dose: Not Given Levothyroxine Sodium (Synthroid -) 25 mcg PO DAILY@0700 [facility] Last Admin: 08/17/16 06:23 Dose: 25 mcg Multivitamins/Minerals/Vitamin C (Tab-A-Vit -) 1 tab PO DAILY [facility] Last Admin: 08/17/16 09:20 Dose: 1 tab Nystatin (Nystop Powder -) 1 applic TP DAILY [facility] Last Admin: 08/17/16 09:21 Dose: 1 applic Nystatin (Nystatin Oral Suspension -) 500,000 units PO Q6HPO [facility] Last Admin: 08/17/16 11:42 Dose: 500,000 units Ondansetron HCl (Zofran Injection) 4 mg IVPB Q6H PRN PRN Reason: NAUSEA Potassium Chloride (K-Dur -) 40 meq PO BID [facility] Last Admin: 08/17/16 09:20 Dose: 40 meq Potassium Phos/Sodium Phos (Phos-Nak Packet -) 1 packet PO BID [facility] Last Admin: 08/17/16 09:21 Dose: 1 packet Sodium Bicarbonate (Sodium Bicarbonate -) 650 mg PO BID [facility] Last Admin: 08/17/16 09:20 Dose: 650 mg Tamsulosin HCl (Flomax -) 0.4 mg PO DAILY@0830 [facility] Last Admin: 08/17/16 09:20 Dose: 0.4 mg Vancomycin HCl (Vancomycin Oral Solution) 125 mg PO Q6HPO [facility] Last Admin: 08/17/16 11:49 Dose: 5 ml - Objective Vital Signs: Vital Signs Temperature 99.2 F 08/17/16 10:00 Pulse Rate 56 L 08/17/16 10:00 Respiratory Rate 16 08/17/16 10:00 Blood Pressure 111/44 08/17/16 10:00 O2 Sat by Pulse Oximetry (%) 97 08/15/16 22:00 Constitutional: Yes: No Distress, Calm Cardiovascular: Yes: S1, S2 Respiratory: Yes: Regular, CTA Bilaterally Gastrointestinal: Yes: Normal Bowel Sounds, Soft Musculoskeletal: Yes: Other Extremities: Yes: WNL Neurological: Yes: Alert Psychiatric: Yes: Alert Labs: CBC, BMP 08/17/16 08:20 08/17/16 08:20 INR, PTT INR 1.17 (0.82-1.09) H 07/26/16 19:07 Assessment/Plan Problem List - Problems (1) Septic shock Code(s): A41.9 - SEPSIS, UNSPECIFIED ORGANISM R65.21 - SEVERE SEPSIS WITH SEPTIC SHOCK (2) HCAP (healthcare-associated pneumonia) Code(s): J18.9 - PNEUMONIA, UNSPECIFIED ORGANISM (3) UTI (urinary tract infection) Code(s): N39.0 - URINARY TRACT INFECTION, SITE NOT SPECIFIED (4) Diarrhea Code(s): R19.7 - DIARRHEA, UNSPECIFIED Qualifiers: Diarrhea type: unspecified type Qualified Code(s): R19.7 - Diarrhea, unspecified (5) Chest pain Code(s): R07.9 - CHEST PAIN, UNSPECIFIED (6) Anemia Code(s): D64.9 - ANEMIA, UNSPECIFIED Qualifiers: Anemia type: other cause Other causes of anemia: other cause, not classified Qualified Code(s): D64.89 - Other specified anemias (7) Chronic systolic CHF (congestive heart failure) Code(s): I50.22 - CHRONIC SYSTOLIC (CONGESTIVE) HEART FAILURE (8) CAD (coronary artery disease) Code(s): I25.10 - ATHSCL HEART DISEASE OF [place] CORONARY ARTERY W/O ANG PCTRS (9) Dehydration Code(s): E86.0 - DEHYDRATION (10) HTN (hypertension) Code(s): I10 - ESSENTIAL (PRIMARY) HYPERTENSION (11) Hypernatremia Code(s): E87.0 - HYPEROSMOLALITY AND HYPERNATREMIA 12 hypothermia 13 cdiff 14 dehydration plan continue current mgmt hydration await all the cx reports rest ct supportive treatment
--- NOTE | 2016-08-17 15:39 | PN ---
Progress Note (short form) - Note Progress Note: Events noted Still with diarrhoea developed hypernatremia Vital Signs Period Temp Pulse Resp BP Sys/Martino Pulse Ox Last 24 Hr 97.2 F-99.4 F 56-77 16-20 80-114/35-62 PE: Awake, alert HEENT: EOMI Neck: Supple, No JVD Lungs: CTA Abd: Benign, BS+ CVS: s1S2 Ext: S/P rt big toe amputation, +edema of legs CMP Sodium 153 mmol/L (136-145) H 08/17/16 08:20 Potassium 3.7 mmol/L (3.5-5.1) 08/17/16 08:20 Chloride 126 mmol/L (98-107) H 08/17/16 08:20 Carbon Dioxide 17 mmol/L (21-32) L 08/17/16 08:20 Anion Gap 10 (8-16) 08/17/16 08:20 BUN 21 mg/dL (7-18) H 08/17/16 08:20 Creatinine 0.6 mg/dL (0.7-1.3) L 08/17/16 08:20 Creat Clearance w eGFR > 60 (>60) 08/17/16 08:20 POC Glucometer 102 UNITS (()) 08/17/16 11:47 Random Glucose 72 mg/dL (74-106) L 08/17/16 08:20 Serum Osmolality 292 mosm/kg (278-305) 08/04/16 10:40 Lactic Acid 1.3 mmol/L (0.4-2.0) 08/05/16 05:15 Calcium 8.4 mg/dL (8.5-10.1) L 08/17/16 08:20 Phosphorus 1.9 mg/dL (2.5-4.9) L 08/17/16 08:20 Magnesium 1.7 mg/dL (1.8-2.4) L 08/17/16 08:20 Total Bilirubin 0.4 mg/dL (0.2-1.0) 08/17/16 08:20 AST 44 U/L (15-37) H D 08/17/16 08:20 ALT 25 U/L (12-78) D 08/17/16 08:20 Alkaline Phosphatase 92 U/L (45-117) 08/17/16 08:20 Creatine Kinase 27 IU/L (39-308) L 07/27/16 17:20 Troponin I < 0.02 ng/ml (0.00-0.05) 07/27/16 17:20 B-Natriuretic Peptide 2546.83 pg/ml (5-450) H 08/17/16 08:20 Total Protein 4.6 g/dl (6.4-8.2) L 08/17/16 08:20 Albumin 1.4 g/dl (3.4-5.0) L 08/17/16 08:20 Lipase 31 U/L (73-393) L 07/26/16 19:07 TSH 2.19 uIU/ml (0.358-3.74) D 08/11/16 05:35 Free T4 1.12 ng/dl (0.76-1.16) 08/04/16 05:38 Free T3 1.2 pg/ml (2.0-4.4) L 08/04/16 10:57 Cortisol AM Sample 27.8 ug/dL (.) 08/14/16 11:30 Current Medications Generic Name Dose Route Start Last Admin Trade Name Freq PRN Reason Stop Dose Admin Acetaminophen 650 mg 08/09/16 19:44 Tylenol - PO Q4H PRN FEVER OR PAIN Ascorbic Acid 500 mg 08/09/16 22:00 08/17/16 14:33 Vitamin C - PO 500 mg TID OLESYA Administration Aspirin 81 mg 08/09/16 22:00 08/17/16 09:20 Asa - PO 81 mg BID OLESYA Administration Collagenase 1 applic 08/10/16 10:00 08/17/16 09:21 Santyl - TP 1 applic DAILY OLESYA Administration Cyanocobalamin 1,000 mcg 08/10/16 10:00 08/17/16 09:20 Vitamin B12 - PO 1,000 mcg DAILY OLESYA Administration Ferrous Sulfate 325 mg 08/09/16 22:00 08/17/16 14:33 Feosol - PO 325 mg TID OLESYA Administration Folic Acid 1 mg 08/10/16 10:00 08/17/16 09:20 Folic Acid - PO 1 mg DAILY OLESYA Administration Guaifenesin 10 ml 08/09/16 19:44 Robitussin - PO Q8H PRN Potassium Chloride 40 meq/ 1,020 mls @ 60 mls/hr 08/16/16 12:00 08/17/16 04:36 Dextrose IVPB Not Given Q17H OLESYA Metronidazole 100 mls @ 100 mls/hr 08/16/16 18:00 08/17/16 09:20 Flagyl 500mg Premixed Ivpb - IVPB 100 mls/hr Q8H-IV OLESYA Administration Insulin Aspart 1 vial 08/09/16 22:00 08/17/16 11:49 Novolog Vial Sliding Scale - SQ Not Given ACHS [facility] Protocol Levothyroxine Sodium 25 mcg 08/10/16 07:00 08/17/16 06:23 Synthroid - PO 25 mcg DAILY@0700 O[facility] Administration Multivitamins/Minerals/Vitamin C 1 tab 08/10/16 10:00 08/17/16 09:20 Tab-A-Vit - PO 1 tab DAILY O[facility] Administration Nystatin 1 applic 08/10/16 10:00 08/17/16 09:21 Nystop Powder - TP 1 applic DAILY O[facility] Administration Nystatin 500,000 units 08/13/16 19:15 08/17/16 11:42 Nystatin Oral Suspension - PO 500,000 units Q6HPO [facility] Administration Ondansetron HCl 4 mg 08/09/16 19:44 Zofran Injection IVPB Q6H PRN NAUSEA Potassium Chloride 40 meq 08/15/16 22:00 08/17/16 09:20 K-Dur - PO 40 meq BID OLESYA Administration Potassium Phos/Sodium Phos 1 packet 08/16/16 11:15 08/17/16 09:21 Phos-Nak Packet - PO 1 packet BID O[facility] Administration Sodium Bicarbonate 650 mg 08/16/16 11:15 08/17/16 09:20 Sodium Bicarbonate - PO 650 mg BID OLESYA Administration Tamsulosin HCl 0.4 mg 08/10/16 08:30 08/17/16 09:20 Flomax - PO 0.4 mg DAILY@0830 O[facility] Administration Vancomycin HCl 125 mg 08/10/16 00:00 08/17/16 11:49 Vancomycin Oral Solution PO 5 ml Q6HPO OLESYA Administration AP: Hypothyroidism: subclinical. Repeat TSH 2.19 Pt was not on thyroid hormone replacement prior to admission. [facility] medication list reviewed. Continue LT4 25. Bradycardia and hypotension unlikely to be related to the subclinical hypothyroidism Repeat TSH 2.19 Hypotension: Off hydrocortisone With morning cortisol of 21 and post Cortrosyn level 27.8, adrenal insufficiency is essentially ruled out. Monitor Blood pressure and electrolytes. Diarrhoea: Hydration as necessary Hypernatremia Bradycardia: unlikely to be related to her thyroid status or any other endocrine issues Sepsis/Hypothermia UTI DM: BGM QACHS Novolog SS coverage Problem List - Problems (1) Anemia Code(s): D64.9 - ANEMIA, UNSPECIFIED Qualifiers: Anemia type: other cause Other causes of anemia: other cause, not classified Qualified Code(s): D64.89 - Other specified anemias (2) C. difficile colitis Code(s): A04.7 - ENTEROCOLITIS DUE TO CLOSTRIDIUM DIFFICILE (3) Septic shock Code(s): A41.9 - SEPSIS, UNSPECIFIED ORGANISM R65.21 - SEVERE SEPSIS WITH SEPTIC SHOCK (4) UTI (urinary tract infection) Code(s): N39.0 - URINARY TRACT INFECTION, SITE NOT SPECIFIED (5) Bradycardia Code(s): R00.1 - BRADYCARDIA, UNSPECIFIED (6) Diarrhea Code(s): R19.7 - DIARRHEA, UNSPECIFIED Qualifiers: Diarrhea type: infectious Qualified Code(s): A09 - Infectious gastroenteritis and colitis, unspecified
[2016-08-17] MEDS ORDERED: MAGNESIUM 4GM/H20 - 100 ML IVPB ONE (16:00)
--- NOTE | 2016-08-17 16:03 | PN ---
Progress Note (short form) - Note Progress Note: Renal follow up for Metabolic acidosis and Hypernatremia Pt seen and examined at the bedside no complaints no pain, sob, fever, chills Vital Signs Temperature 99.2 F 08/17/16 10:00 Pulse Rate 67 08/17/16 15:24 Respiratory Rate 16 08/17/16 15:24 Blood Pressure 101/35 08/17/16 15:24 O2 Sat by Pulse Oximetry (%) 97 08/15/16 22:00 Intake & Output 08/14/16 08/15/16 08/16/16 08/17/16 23:59 23:59 23:59 23:59 Intake Total 540 1000 540 812 Output Total 300 650 Balance 540 700 540 162 Weight 148 lb 6.4 oz 159 lb Gen: NAD, on NC CVS: RRR Lungs :Dec Bs at lung bases but no rales, wheeze Abd: soft NT/ND Ext: UE edema, No LE edema Neuro: Awake and alert CBC, BMP 08/17/16 08:20 08/17/16 08:20 Current Medications Acetaminophen (Tylenol -) 650 mg PO Q4H PRN PRN Reason: FEVER OR PAIN Ascorbic Acid (Vitamin C -) 500 mg PO TID [facility] Last Admin: 08/17/16 14:33 Dose: 500 mg Aspirin (Asa -) 81 mg PO BID [facility] Last Admin: 08/17/16 09:20 Dose: 81 mg Collagenase (Santyl -) 1 applic TP DAILY [facility] Last Admin: 08/17/16 09:21 Dose: 1 applic Cyanocobalamin (Vitamin B12 -) 1,000 mcg PO DAILY [facility] Last Admin: 08/17/16 09:20 Dose: 1,000 mcg Ferrous Sulfate (Feosol -) 325 mg PO TID [facility] Last Admin: 08/17/16 14:33 Dose: 325 mg Folic Acid (Folic Acid -) 1 mg PO DAILY [facility] Last Admin: 08/17/16 09:20 Dose: 1 mg Guaifenesin (Robitussin -) 10 ml PO Q8H PRN Potassium Chloride 40 meq/ (Dextrose) 1,020 mls @ 60 mls/hr IVPB Q17H [facility] Last Admin: 08/17/16 04:36 Dose: Not Given Metronidazole (Flagyl 500mg Premixed Ivpb -) 100 mls @ 100 mls/hr IVPB Q8H-IV [facility] Last Admin: 08/17/16 09:20 Dose: 100 mls/hr Magnesium Sulfate 4 gm/ (Miscellaneous) 100 mls @ 100 mls/hr IVPB ONCE ONE Stop: 08/17/16 16:59 Insulin Aspart (Novolog Vial Sliding Scale -) 1 vial SQ ACHS [facility] PRN Reason: Protocol Last Admin: 08/17/16 11:49 Dose: Not Given Levothyroxine Sodium (Synthroid -) 25 mcg PO DAILY@0700 [facility] Last Admin: 08/17/16 06:23 Dose: 25 mcg Multivitamins/Minerals/Vitamin C (Tab-A-Vit -) 1 tab PO DAILY [facility] Last Admin: 08/17/16 09:20 Dose: 1 tab Nystatin (Nystop Powder -) 1 applic TP DAILY [facility] Last Admin: 08/17/16 09:21 Dose: 1 applic Nystatin (Nystatin Oral Suspension -) 500,000 units PO Q6HPO [facility] Last Admin: 08/17/16 11:42 Dose: 500,000 units Ondansetron HCl (Zofran Injection) 4 mg IVPB Q6H PRN PRN Reason: NAUSEA Potassium Chloride (K-Dur -) 40 meq PO BID [facility] Last Admin: 08/17/16 09:20 Dose: 40 meq Potassium Phos/Sodium Phos (Phos-Nak Packet -) 1 packet PO BID [facility] Last Admin: 08/17/16 09:21 Dose: 1 packet Sodium Bicarbonate (Sodium Bicarbonate -) 650 mg PO BID [facility] Last Admin: 08/17/16 09:20 Dose: 650 mg Tamsulosin HCl (Flomax -) 0.4 mg PO DAILY@0830 [facility] Last Admin: 08/17/16 09:20 Dose: 0.4 mg Vancomycin HCl (Vancomycin Oral Solution) 125 mg PO Q6HPO [facility] Last Admin: 08/17/16 11:49 Dose: 5 ml A/P 80 year old Gentleman with PMhx of AAA, Hypertension, GERD, DM Type 2, Anemia, C. Diff colitis, Hyperlipidemia, CAD with Hx of [place] presented with hypothermia and found to have Sepsis related to UTI and C. Diff Colitis with diarrhea with metabolic acidosis and hypernatremia. #Metabolic acidosis (NAG) secondary to GI losses start sodium bicarb 650mg BID will titrate to goal bicarb of 22 #Hypernatremia contiue D5W s/p lasix yesterday Goal rate of correction ~8 per 24 hours #Sepsis/Hypothermia/Cdiff on IV Flagyl and PO Vanco off hydrocortisone #Hypophosphatemia continue netraphos BID #Hypokalemia KCL 40meq PO daily #Hypomagnesemia Give Mg Sulfate 4g IV today Medardo Huerta DO
[2016-08-17] MEDS ORDERED: MAGNESIUM SULF 50% (8.12 MEQ/2 ML-1 GM VIAL) IVPB SCH (18:30)
[2016-08-17] MEDS: MAGNESIUM SULF 50% (8.12 MEQ/2 ML-1 GM VIAL) IVPB SCH ×2 (19:14→23:06)
[2016-08-17] MEDS ORDERED: MEROPENEM 1 GM in DEXTROSE 5%-WATER - 250 ML IVPB SCH (21:30)
[2016-08-17] MEDS: VANCOMYCIN 1,250 MG in DEXTROSE 5%-WATER - 250 ML IVPB SCH (23:10)
[2016-08-18] MEDS: VANCOMYCIN 250 MG/5 ML ORAL SOLUTION PO SCH ×4 (00:30→17:40)
[2016-08-18] MEDS: MEROPENEM 1 GM in DEXTROSE 5%-WATER - 100 ML IVPB SCH ×3 (02:05→19:59)
[2016-08-18] MEDS: METRONIDAZOLE 500 MG PREMIXED 100 ML IVPB SCH ×3 (02:05→18:05)
[2016-08-18] MEDS: ASCORBIC ACID 500 MG TABLET (FP) PO SCH ×3 (06:30→22:58)
[2016-08-18] MEDS: FERROUS SO4 325 MG TABLET (FP) PO SCH ×3 (06:30→22:58)
[2016-08-18] MEDS: INSULIN SLIDING SCALE (NOVOLOG) 1 VIAL SQ SCH ×4 (06:30→22:55)
[2016-08-18] MEDS: LEVOTHYROXINE NA 25 MCG TABLET (FP) PO SCH (06:31)
[2016-08-18] MEDS: NYSTATIN 500,000 UNITS/5 ML SUSPENSION PO SCH ×3 (06:31→18:06)
[2016-08-18 08:53] LABS: BASOPHIL 0.2 % (0-2.0); EOSINOPHIL 0.2 % (0-4.5); MCH 32.8 pg (25.7-33.7); MCHC 31.3 g/dl (32.0-35.9); MEAN CELL VOLUME 104.8 fl (80-96); MEAN PLT VOLUME 10.9 fl (7.5-11.1); NEUTROPHILS 94.8 % (42.8-82.8); PLATELET COUNT 130 K/MM3 (134-434)
--- NOTE | 2016-08-18 08:58 | PN ---
Progress Note (short form) - Note Progress Note: O/E Patient seen and examined. Diarrhea improving as per nursing staff. No fever. Blood pressure low but stable. Denies nausea, vomiting, abdominal pain. Labs pending. Vital Signs Period Temp Pulse Resp BP Sys/Martino Pulse Ox Last 24 Hr 95.7 F-99.4 F 59-77 20-20 80-114/55-62 Heartt regular Lungs air entry decreased bilateral lung base Abd soft Ext no edema Not cold Current Medications Acetaminophen (Tylenol -) 650 mg PO Q4H PRN PRN Reason: FEVER OR PAIN Ascorbic Acid (Vitamin C -) 500 mg PO TID [facility] Last Admin: 08/17/16 06:23 Dose: 500 mg Aspirin (Asa -) 81 mg PO BID [facility] Last Admin: 08/17/16 09:20 Dose: 81 mg Collagenase (Santyl -) 1 applic TP DAILY [facility] Last Admin: 08/17/16 09:21 Dose: 1 applic Cyanocobalamin (Vitamin B12 -) 1,000 mcg PO DAILY [facility] Last Admin: 08/17/16 09:20 Dose: 1,000 mcg Ferrous Sulfate (Feosol -) 325 mg PO TID [facility] Last Admin: 08/17/16 06:23 Dose: 325 mg Folic Acid (Folic Acid -) 1 mg PO DAILY [facility] Last Admin: 08/17/16 09:20 Dose: 1 mg Guaifenesin (Robitussin -) 10 ml PO Q8H PRN Potassium Chloride 40 meq/ (Dextrose) 1,020 mls @ 60 mls/hr IVPB Q17H [facility] Last Admin: 08/17/16 04:36 Dose: Not Given Metronidazole (Flagyl 500mg Premixed Ivpb -) 100 mls @ 100 mls/hr IVPB Q8H-IV [facility] Last Admin: 08/17/16 09:20 Dose: 100 mls/hr Insulin Aspart (Novolog Vial Sliding Scale -) 1 vial SQ ACHS [facility] PRN Reason: Protocol Last Admin: 08/17/16 06:22 Dose: Not Given Levothyroxine Sodium (Synthroid -) 25 mcg PO DAILY@0700 [facility] Last Admin: 08/17/16 06:23 Dose: 25 mcg Multivitamins/Minerals/Vitamin C (Tab-A-Vit -) 1 tab PO DAILY [facility] Last Admin: 08/17/16 09:20 Dose: 1 tab Nystatin (Nystop Powder -) 1 applic TP DAILY [facility] Last Admin: 08/17/16 09:21 Dose: 1 applic Nystatin (Nystatin Oral Suspension -) 500,000 units PO Q6HPO [facility] Last Admin: 08/17/16 06:23 Dose: 500,000 units Ondansetron HCl (Zofran Injection) 4 mg IVPB Q6H PRN PRN Reason: NAUSEA Potassium Chloride (K-Dur -) 40 meq PO BID [facility] Last Admin: 08/17/16 09:20 Dose: 40 meq Potassium Phos/Sodium Phos (Phos-Nak Packet -) 1 packet PO BID [facility] Last Admin: 08/17/16 09:21 Dose: 1 packet Sodium Bicarbonate (Sodium Bicarbonate -) 650 mg PO BID [facility] Last Admin: 08/17/16 09:20 Dose: 650 mg Tamsulosin HCl (Flomax -) 0.4 mg PO DAILY@0830 [facility] Last Admin: 08/17/16 09:20 Dose: 0.4 mg Vancomycin HCl (Vancomycin Oral Solution) 125 mg PO Q6HPO [facility] Last Admin: 08/17/16 06:22 Dose: 125 ml CBC, BMP 08/17/16 08:20 08/17/16 08:20 Microbiology 08/16/16 10:32 Blood - Peripheral Venous Blood Culture - Preliminary Pending Organism 08/14/16 16:00 Sputum - Endotracheal Suction W/O Vent Gram Stain - Final 08/14/16 16:00 Sputum - Endotracheal Suction W/O Vent Sputum Culture - Final Escherichia Coli Esbl Bottom Finisher Proteus Mirabilis 08/16/16 10:30 Blood - Peripheral Venous Blood Culture - Preliminary NO GROWTH OBTAINED AFTER 24 HOURS, INCUBATION TO CONTINUE FOR 4 DAYS. A&P Hypernatremia In the setting of poor PO intake. Labs pending for today. Continue gentle hydration with D5W @ 50 ml/hr. Renal follow up appreciated Trying to reach son. called twice and left message. Poor PO intake will be an on going issue. Code(s): E87.0 - HYPEROSMOLALITY AND HYPERNATREMIA Leukocytosis Labs pending. Slight improvement. Prelim Cultures positive. C. Diff antigen positive toxin negative with ongoing diarrhea. Chest x ray: atelectasis vs pneumonia Antibiotics as per ID C diff colitis Assessment/Plan: Improving. - C.Diff antigen positive with toxin negative with ongoing diarrhea. - ID follow up appreciated. Code(s): R19.7 - DIARRHEA, UNSPECIFIED Qualifiers: Diarrhea type: unspecified type Qualified Code(s): R19.7 - Diarrhea, unspecified Hypothermia Resolved. BP maintaining. Anemia Assessment/Plan: -chronic and stable Code(s): D64.9 - ANEMIA, UNSPECIFIED Qualifiers: Anemia type: other cause Other causes of anemia: other cause, not classified Qualified Code(s): D64.89 - Other specified anemias Chronic systolic CHF (congestive heart failure) Assessment/Plan: -not in exacerbation. - BNP- High. - Cardiology follow up appreciated. Code(s): I50.22 - CHRONIC SYSTOLIC (CONGESTIVE) HEART FAILURE CAD (coronary artery disease) -continue home regimen -cardiology following Code(s): I25.10 - ATHSCL HEART DISEASE OF [place] CORONARY ARTERY W/O ANG PCTRS HTN (hypertension) Assessment/Plan: Code(s): I10 - ESSENTIAL (PRIMARY) HYPERTENSION Blood pressure improved. Off BP meds. Bradycardia Cardiology follow up appreciated. Hypothyroidism Repeat TSH 2.19 Continue levothyroxine 25 mcg daily. Endocrine consult reviewed and appreciated. Hypokalemia Potassium repleted Depression/suicidal thoughts Cheerful. Psych consulted. Patient is full code. Tried calling his son who is also his HCP to discuss goals of care. Left message to call back.
[2016-08-18 09:21] LABS: ALBUMIN 1.4 g/dl (3.4-5.0); ALK PHOS 97 U/L (45-117); ANION GAP 11 (8-16); BILIRUBIN,TOTAL 0.5 mg/dL (0.2-1.0); CALCIUM 8.4 mg/dL (8.5-10.1); CO2 16 mmol/L (21-32); COCKROFT - GAULT 84.42; CREATININE 0.7 mg/dL (0.7-1.3); GLUCOSE,RANDOM 103 mg/dL (74-106); SGOT/AST 36 U/L (15-37); SGPT/ALT 29 U/L (12-78); TOT PROT 4.6 g/dl (6.4-8.2)
[2016-08-18] MEDS: TAMSULOSIN HCL 0.4 MG CAP.ER.24H (FP) PO SCH (10:13)
[2016-08-18] MEDS: POTASSIUM CHLORIDE TABS 20 MEQ TABLET.ER (FP) PO SCH ×2 (10:13→22:58)
[2016-08-18] MEDS: ASPIRIN 81 MG CHEWABLE TABLETS PO SCH ×2 (10:13→22:58)
[2016-08-18] MEDS: SODIUM BICARBONATE 650 MG TABLET PO SCH ×2 (10:13→22:58)
[2016-08-18] MEDS: FOLIC ACID 1 MG TABLET (FP) PO SCH (10:14)
[2016-08-18] MEDS: CYANOCOBALAMIN 1,000 MCG TABLET (FP) PO SCH (10:14)
[2016-08-18] MEDS: NAPH,MB-DB/K PH,MBDB POWDER PACKET PO SCH ×2 (10:14→23:05)
[2016-08-18] MEDS: VANCOMYCIN 1,250 MG in DEXTROSE 5%-WATER - 250 ML IVPB SCH (10:14)
[2016-08-18] MEDS: COLLAGENASE CLOSTRIDIUM HIST. 30 GRAMS TUBE TP SCH (11:54)
[2016-08-18] MEDS: NYSTATIN POWDER 100,000 UNITS/GM - 15 GM TOPICAL POWDER TP SCH (11:54)
[2016-08-18] MEDS: MULTIVITAMINS (DAILY MVI) TABLET (FP) PO SCH (11:55)
--- NOTE | 2016-08-18 13:25 | PN ---
Progress Note (short form) - Note Progress Note: Renal follow up for Metabolic acidosis and Hypernatremia Pt seen and examined at the bedside no complaints no pain, sob, fever, chills diarrhea improving as per nursing Vital Signs Temperature 94.8 F L 08/18/16 06:32 Pulse Rate 59 L 08/18/16 12:21 Respiratory Rate 20 08/18/16 06:22 Blood Pressure 95/52 08/18/16 06:22 O2 Sat by Pulse Oximetry (%) 90 L 08/18/16 12:21 Intake & Output 08/15/16 08/16/16 08/17/16 08/18/16 23:59 23:59 23:59 23:59 Intake Total 6835 253 7112 240 Output Total 300 650 850 Balance 700 540 512 -610 Weight 148 lb 6.4 oz 159 lb Gen: NAD, on NC CVS: RRR Lungs :Dec Bs at lung bases but no rales, wheeze Abd: soft NT/ND Ext: UE edema, No LE edema Neuro: Awake and alert CBC, BMP 08/18/16 07:30 08/18/16 07:30 Laboratory Tests 08/17/16 08/18/16 08:20 07:30 Calcium 8.4 L Phosphorus 1.9 L Magnesium 1.7 L Albumin 1.4 L 1.4 L Current Medications Acetaminophen (Tylenol -) 650 mg PO Q4H PRN PRN Reason: FEVER OR PAIN Ascorbic Acid (Vitamin C -) 500 mg PO TID [facility] Last Admin: 08/18/16 06:30 Dose: 500 mg Aspirin (Asa -) 81 mg PO BID [facility] Last Admin: 08/18/16 10:13 Dose: 81 mg Collagenase (Santyl -) 1 applic TP DAILY [facility] Last Admin: 08/18/16 11:54 Dose: 1 applic Cyanocobalamin (Vitamin B12 -) 1,000 mcg PO DAILY [facility] Last Admin: 08/18/16 10:14 Dose: 1,000 mcg Ferrous Sulfate (Feosol -) 325 mg PO TID [facility] Last Admin: 08/18/16 06:30 Dose: 325 mg Folic Acid (Folic Acid -) 1 mg PO DAILY [facility] Last Admin: 08/18/16 10:14 Dose: 1 mg Guaifenesin (Robitussin -) 10 ml PO Q8H PRN Potassium Chloride 40 meq/ (Dextrose) 1,020 mls @ 60 mls/hr IVPB Q17H [facility] Last Admin: 08/17/16 23:11 Dose: Not Given Metronidazole (Flagyl 500mg Premixed Ivpb -) 100 mls @ 100 mls/hr IVPB Q8H-IV [facility] Last Admin: 08/18/16 10:12 Dose: 100 mls/hr Vancomycin HCl 1,250 mg/ (Dextrose) 250 mls @ 166.667 mls/hr IVPB DAILY [facility] PRN Reason: Protocol Last Admin: 08/18/16 10:14 Dose: 166.667 mls/hr Meropenem 1 gm/ Dextrose 100 mls @ 100 mls/hr IVPB Q8H-IV [facility] PRN Reason: Protocol Last Admin: 08/18/16 10:13 Dose: 100 mls/hr Insulin Aspart (Novolog Vial Sliding Scale -) 1 vial SQ ACHS [facility] PRN Reason: Protocol Last Admin: 08/18/16 12:31 Dose: 2 units Levothyroxine Sodium (Synthroid -) 25 mcg PO DAILY@0700 [facility] Last Admin: 08/18/16 06:31 Dose: 25 mcg Multivitamins/Minerals/Vitamin C (Tab-A-Vit -) 1 tab PO DAILY [facility] Last Admin: 08/18/16 11:55 Dose: 1 tab Nystatin (Nystop Powder -) 1 applic TP DAILY [facility] Last Admin: 08/18/16 11:54 Dose: 1 applic Nystatin (Nystatin Oral Suspension -) 500,000 units PO Q6HPO [facility] Last Admin: 08/18/16 11:55 Dose: 500,000 units Ondansetron HCl (Zofran Injection) 4 mg IVPB Q6H PRN PRN Reason: NAUSEA Potassium Chloride (K-Dur -) 40 meq PO BID [facility] Last Admin: 08/18/16 10:13 Dose: 40 meq Potassium Phos/Sodium Phos (Phos-Nak Packet -) 1 packet PO BID [facility] Last Admin: 08/18/16 10:14 Dose: 1 packet Sodium Bicarbonate (Sodium Bicarbonate -) 650 mg PO BID [facility] Last Admin: 08/18/16 10:13 Dose: 650 mg Tamsulosin HCl (Flomax -) 0.4 mg PO DAILY@0830 [facility] Last Admin: 08/18/16 10:13 Dose: 0.4 mg Vancomycin HCl (Vancomycin Oral Solution) 125 mg PO Q6HPO [facility] Last Admin: 08/18/16 11:55 Dose: 2.5 ml A/P 80 year old Gentleman with PMhx of AAA, Hypertension, GERD, DM Type 2, Anemia, C. Diff colitis, Hyperlipidemia, CAD with Hx of [place] presented with hypothermia and found to have Sepsis related to UTI and C. Diff Colitis with diarrhea with metabolic acidosis and hypernatremia. #Metabolic acidosis (NAG) secondary to GI losses continue sodium bicarb expect improvement with current dose as diarrhea improving #Hypernatremia continue D5W hopefully improved rate of of Na correction now that diarrhea resolving #Sepsis/Hypothermia/Cdiff on IV Flagyl and PO Vanco off hydrocortisone #Hypophosphatemia continue netraphos BID #Hypokalemia KCL 40meq PO daily #Hypomagnesemia ternd mg daily Medardo Huerta DO
--- NOTE | 2016-08-18 13:34 | PN ---
Progress Note, Physician History of Present Illness: continued to have high wbc patient now has blood cx positive and sputum positive no complaints clinically stable - Current Medication List Current Medications: Active Medications Acetaminophen (Tylenol -) 650 mg PO Q4H PRN PRN Reason: FEVER OR PAIN Ascorbic Acid (Vitamin C -) 500 mg PO TID [facility] Last Admin: 08/18/16 06:30 Dose: 500 mg Aspirin (Asa -) 81 mg PO BID [facility] Last Admin: 08/18/16 10:13 Dose: 81 mg Collagenase (Santyl -) 1 applic TP DAILY [facility] Last Admin: 08/18/16 11:54 Dose: 1 applic Cyanocobalamin (Vitamin B12 -) 1,000 mcg PO DAILY [facility] Last Admin: 08/18/16 10:14 Dose: 1,000 mcg Ferrous Sulfate (Feosol -) 325 mg PO TID [facility] Last Admin: 08/18/16 06:30 Dose: 325 mg Folic Acid (Folic Acid -) 1 mg PO DAILY [facility] Last Admin: 08/18/16 10:14 Dose: 1 mg Guaifenesin (Robitussin -) 10 ml PO Q8H PRN Potassium Chloride 40 meq/ (Dextrose) 1,020 mls @ 60 mls/hr IVPB Q17H [facility] Last Admin: 08/17/16 23:11 Dose: Not Given Metronidazole (Flagyl 500mg Premixed Ivpb -) 100 mls @ 100 mls/hr IVPB Q8H-IV [facility] Last Admin: 08/18/16 10:12 Dose: 100 mls/hr Vancomycin HCl 1,250 mg/ (Dextrose) 250 mls @ 166.667 mls/hr IVPB DAILY [facility] PRN Reason: Protocol Last Admin: 08/18/16 10:14 Dose: 166.667 mls/hr Meropenem 1 gm/ Dextrose 100 mls @ 100 mls/hr IVPB Q8H-IV [facility] PRN Reason: Protocol Last Admin: 08/18/16 10:13 Dose: 100 mls/hr Insulin Aspart (Novolog Vial Sliding Scale -) 1 vial SQ ACHS [facility] PRN Reason: Protocol Last Admin: 08/18/16 12:31 Dose: 2 units Levothyroxine Sodium (Synthroid -) 25 mcg PO DAILY@0700 [facility] Last Admin: 08/18/16 06:31 Dose: 25 mcg Multivitamins/Minerals/Vitamin C (Tab-A-Vit -) 1 tab PO DAILY [facility] Last Admin: 08/18/16 11:55 Dose: 1 tab Nystatin (Nystop Powder -) 1 applic TP DAILY [facility] Last Admin: 08/18/16 11:54 Dose: 1 applic Nystatin (Nystatin Oral Suspension -) 500,000 units PO Q6HPO [facility] Last Admin: 08/18/16 11:55 Dose: 500,000 units Ondansetron HCl (Zofran Injection) 4 mg IVPB Q6H PRN PRN Reason: NAUSEA Potassium Chloride (K-Dur -) 40 meq PO BID [facility] Last Admin: 08/18/16 10:13 Dose: 40 meq Potassium Phos/Sodium Phos (Phos-Nak Packet -) 1 packet PO BID [facility] Last Admin: 08/18/16 10:14 Dose: 1 packet Sodium Bicarbonate (Sodium Bicarbonate -) 650 mg PO BID [facility] Last Admin: 08/18/16 10:13 Dose: 650 mg Tamsulosin HCl (Flomax -) 0.4 mg PO DAILY@0830 [facility] Last Admin: 08/18/16 10:13 Dose: 0.4 mg Vancomycin HCl (Vancomycin Oral Solution) 125 mg PO Q6HPO [facility] Last Admin: 08/18/16 11:55 Dose: 2.5 ml - Objective Vital Signs: Vital Signs Temperature 94.8 F L 08/18/16 06:32 Pulse Rate 59 L 08/18/16 12:21 Respiratory Rate 20 08/18/16 06:22 Blood Pressure 95/52 08/18/16 06:22 O2 Sat by Pulse Oximetry (%) 90 L 08/18/16 12:21 Constitutional: Yes: No Distress, Calm HENT: Yes: Atraumatic Cardiovascular: Yes: S1, S2 Respiratory: Yes: Regular, Poor Air Entry Gastrointestinal: Yes: Normal Bowel Sounds, Soft Musculoskeletal: Yes: WNL Extremities: Yes: WNL Neurological: Yes: Alert Psychiatric: Yes: Alert Labs: CBC, BMP 08/18/16 07:30 08/18/16 07:30 INR, PTT INR 1.17 (0.82-1.09) H 07/26/16 19:07 Assessment/Plan Problem List - Problems (1) Septic shock Code(s): A41.9 - SEPSIS, UNSPECIFIED ORGANISM R65.21 - SEVERE SEPSIS WITH SEPTIC SHOCK (2) HCAP (healthcare-associated pneumonia) Code(s): J18.9 - PNEUMONIA, UNSPECIFIED ORGANISM (3) UTI (urinary tract infection) Code(s): N39.0 - URINARY TRACT INFECTION, SITE NOT SPECIFIED (4) Diarrhea Code(s): R19.7 - DIARRHEA, UNSPECIFIED Qualifiers: Diarrhea type: unspecified type Qualified Code(s): R19.7 - Diarrhea, unspecified (5) Chest pain Code(s): R07.9 - CHEST PAIN, UNSPECIFIED (6) Anemia Code(s): D64.9 - ANEMIA, UNSPECIFIED Qualifiers: Anemia type: other cause Other causes of anemia: other cause, not classified Qualified Code(s): D64.89 - Other specified anemias (7) Chronic systolic CHF (congestive heart failure) Code(s): I50.22 - CHRONIC SYSTOLIC (CONGESTIVE) HEART FAILURE (8) CAD (coronary artery disease) Code(s): I25.10 - ATHSCL HEART DISEASE OF [place] CORONARY ARTERY W/O ANG PCTRS (9) Dehydration Code(s): E86.0 - DEHYDRATION (10) HTN (hypertension) Code(s): I10 - ESSENTIAL (PRIMARY) HYPERTENSION (11) Hypernatremia Code(s): E87.0 - HYPEROSMOLALITY AND HYPERNATREMIA 12 hypothermia 13 cdiff 14 dehydration 15 gm positive bacteremia esbl ecoli pneumonia patient with mrsa in blood and esbl in sputum dirrhoea has decreased plan started patient on abx continue to monitor will recheck blood tomorrow rest as per primary
--- NOTE | 2016-08-18 14:36 | PN ---
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 She is mixing puree to a thinned out consistency with intermittent acceptance. Cough noted not consistently with po intake. Selected Entries 08/17/16 08/17/16 08/17/16 06:52 10:00 15:24 Breakfast 50% Lunch 50% Supper Temperature 99.4 F 99.2 F 08/17/16 08/17/16 08/18/16 16:30 18:30 06:32 Breakfast Lunch Supper 25% Temperature 98.1 F 94.8 F L 08/18/16 12:38 Breakfast 25% Lunch Supper Temperature Laboratory Tests 08/16/16 08/17/16 08/18/16 06:00 08:20 07:30 WBC 22.4 H 21.4 H 21.0 H
[2016-08-18] MEDS: POTASSIUM CHLORIDE 40 MEQ in DEXTROSE 5%-WATER - 1,000 ML IVPB SCH (15:00)
[2016-08-18] MEDS ORDERED: INSULIN (NOVOLOG) ASPART 100 UNITS/ML 10ML VIAL ONE (23:31)
[2016-08-19] MEDS ORDERED: VANCOMYCIN 1,250 MG in DEXTROSE 5%-WATER - 250 ML IVPB SCH
[2016-08-19] MEDS: VANCOMYCIN 250 MG/5 ML ORAL SOLUTION PO SCH ×3 (00:28→19:08)
[2016-08-19] MEDS: NYSTATIN 500,000 UNITS/5 ML SUSPENSION PO SCH ×3 (00:28→17:29)
[2016-08-19] MEDS: POTASSIUM CHLORIDE 40 MEQ in DEXTROSE 5%-WATER - 1,000 ML IVPB SCH ×2 (01:05→10:21)
[2016-08-19] MEDS ORDERED: PT OWN MED DRAWER 7, Y5N ONE ×2 (01:19→11:02)
[2016-08-19] MEDS: METRONIDAZOLE 500 MG PREMIXED 100 ML IVPB SCH ×3 (01:23→17:55)
[2016-08-19] MEDS: MEROPENEM 1 GM in DEXTROSE 5%-WATER - 100 ML IVPB SCH ×3 (01:51→18:12)
[2016-08-19] MEDS: FERROUS SO4 325 MG TABLET (FP) PO SCH ×3 (05:36→21:49)
[2016-08-19] MEDS: ASCORBIC ACID 500 MG TABLET (FP) PO SCH ×3 (05:36→21:54)
[2016-08-19] MEDS: INSULIN SLIDING SCALE (NOVOLOG) 1 VIAL SQ SCH ×2 (06:48→18:45)
[2016-08-19] MEDS: LEVOTHYROXINE NA 25 MCG TABLET (FP) PO SCH (06:50)
--- NOTE | 2016-08-19 08:44 | PN ---
Progress Note (short form) - Note Progress Note: Resting in NAD on 2 L NC O2. Denies shortness of breath or chest pain. Still with some nonproductive cough. Intake & Output 08/16/16 08/17/16 08/18/16 08/19/16 23:59 23:59 23:59 23:59 Intake Total 540 1162 940 300 Output Total 650 850 Balance 540 512 90 300 Weight 148 lb 6.4 oz 159 lb Last Vital Signs Temp Pulse Resp BP Pulse Ox 95.5 F L 59 L 22 83/46 92 L 08/19/16 06:41 08/19/16 06:41 08/19/16 06:41 08/19/16 06:41 08/18/16 22:00 Active Medications Acetaminophen (Tylenol -) 650 mg PO Q4H PRN PRN Reason: FEVER OR PAIN Ascorbic Acid (Vitamin C -) 500 mg PO TID [facility] Last Admin: 08/19/16 05:36 Dose: 500 mg Aspirin (Asa -) 81 mg PO BID [facility] Last Admin: 08/18/16 22:58 Dose: 81 mg Collagenase (Santyl -) 1 applic TP DAILY [facility] Last Admin: 08/18/16 11:54 Dose: 1 applic Cyanocobalamin (Vitamin B12 -) 1,000 mcg PO DAILY [facility] Last Admin: 08/18/16 10:14 Dose: 1,000 mcg Ferrous Sulfate (Feosol -) 325 mg PO TID [facility] Last Admin: 08/19/16 05:36 Dose: 325 mg Folic Acid (Folic Acid -) 1 mg PO DAILY [facility] Last Admin: 08/18/16 10:14 Dose: 1 mg Guaifenesin (Robitussin -) 10 ml PO Q8H PRN Potassium Chloride 40 meq/ (Dextrose) 1,020 mls @ 60 mls/hr IVPB Q17H [facility] Last Admin: 08/19/16 01:05 Dose: 60 mls/hr Metronidazole (Flagyl 500mg Premixed Ivpb -) 100 mls @ 100 mls/hr IVPB Q8H-IV [facility] Last Admin: 08/19/16 01:23 Dose: 100 mls/hr Vancomycin HCl 1,250 mg/ (Dextrose) 250 mls @ 166.667 mls/hr IVPB DAILY [facility] PRN Reason: Protocol Last Admin: 08/18/16 10:14 Dose: 166.667 mls/hr Meropenem 1 gm/ Dextrose 100 mls @ 100 mls/hr IVPB Q8H-IV [facility] PRN Reason: Protocol Last Admin: 08/19/16 01:51 Dose: 100 mls/hr Insulin Aspart (Novolog Vial Sliding Scale -) 1 vial SQ ACHS [facility] PRN Reason: Protocol Last Admin: 08/19/16 06:48 Dose: Not Given Levothyroxine Sodium (Synthroid -) 25 mcg PO DAILY@0700 [facility] Last Admin: 08/19/16 06:50 Dose: 25 mcg Multivitamins/Minerals/Vitamin C (Tab-A-Vit -) 1 tab PO DAILY [facility] Last Admin: 08/18/16 11:55 Dose: 1 tab Nystatin (Nystop Powder -) 1 applic TP DAILY [facility] Last Admin: 08/18/16 11:54 Dose: 1 applic Nystatin (Nystatin Oral Suspension -) 500,000 units PO Q6HPO [facility] Last Admin: 08/19/16 05:36 Dose: 500,000 units Ondansetron HCl (Zofran Injection) 4 mg IVPB Q6H PRN PRN Reason: NAUSEA Potassium Chloride (K-Dur -) 40 meq PO BID [facility] Last Admin: 08/18/16 22:58 Dose: 40 meq Potassium Phos/Sodium Phos (Phos-Nak Packet -) 1 packet PO BID [facility] Last Admin: 08/18/16 23:05 Dose: 1 packet Sodium Bicarbonate (Sodium Bicarbonate -) 650 mg PO BID [facility] Last Admin: 08/18/16 22:58 Dose: 650 mg Tamsulosin HCl (Flomax -) 0.4 mg PO DAILY@0830 [facility] Last Admin: 08/18/16 10:13 Dose: 0.4 mg Vancomycin HCl (Vancomycin Oral Solution) 125 mg PO Q6HPO [facility] Last Admin: 08/19/16 05:35 Dose: 2.5 ml Gen: NAD, weak appearing Heart: RRR Lung: scattered rhonchi Abd: soft, nontender Ext: no edema Laboratory Results - last 24 hr 08/18/16 08/18/16 08/18/16 07:30 07:30 12:30 WBC 21.0 H RBC 2.41 L Hgb 7.9 L Hct 25.2 L MCV 104.8 H MCHC 31.3 L RDW 18.0 H Plt Count 130 L MPV 10.9 Neutrophils % 94.8 H Lymphocytes % 2.6 L D Monocytes % 2.2 L D Eosinophils % 0.2 Basophils % 0.2 Sodium 152 H Potassium 3.6 Chloride 125 H Carbon Dioxide 16 L Anion Gap 11 BUN 18 Creatinine 0.7 Creat Clearance w eGFR > 60 POC Glucometer 171 Random Glucose 103 D Calcium 8.4 L Total Bilirubin 0.5 D AST 36 ALT 29 Alkaline Phosphatase 97 Total Protein 4.6 L Albumin 1.4 L 08/18/16 08/18/16 08/19/16 17:23 21:28 06:22 WBC RBC Hgb Hct MCV MCHC RDW Plt Count MPV Neutrophils % Lymphocytes % Monocytes % Eosinophils % Basophils % Sodium Potassium Chloride Carbon Dioxide Anion Gap BUN Creatinine Creat Clearance w eGFR POC Glucometer 197 156 116 Random Glucose Calcium Total Bilirubin AST ALT Alkaline Phosphatase Total Protein Albumin A/P UTI C Diff Colitis Pneumonia vs Atelectasis Septic Shock resolving CAD LV Systolic Dysfunction HTN - ABX per ID - aspiration precautions - attempt incentive spirometry - DVT prophylaxis Dr Salguero
[2016-08-19 08:50] LABS: BASOPHIL 0.2 % (0-2.0); EOSINOPHIL 0.1 % (0-4.5); MCH 33.2 pg (25.7-33.7); MCHC 30.8 g/dl (32.0-35.9); MEAN CELL VOLUME 107.8 fl (80-96); MEAN PLT VOLUME 10.7 fl (7.5-11.1); PLATELET COUNT 107 K/MM3 (134-434); RDW 19.7 % (11.9-15.9); WHITE BLOOD COUNT 16.8 K/mm3 (4.0-10.0)
--- NOTE | 2016-08-19 09:06 | PN ---
Progress Note (short form) - Note Progress Note: O/E Lethargic. Decline as compared to yesterday. Awake but unable to interactive verbally. Afebrile. Called son and discussed in detail about his medical condition. Palliative care consulted. He agrees. Vital Signs Period Temp Pulse Resp BP Sys/Martino Pulse Ox Last 24 Hr 95.5 F-98.2 F 56-110 20-22 83-134/46-78 90-92 Heartt regular Lungs air entry decreased bilateral lung base Abd soft Ext no edema Not cold Current Medications Acetaminophen (Tylenol -) 650 mg PO Q4H PRN PRN Reason: FEVER OR PAIN Ascorbic Acid (Vitamin C -) 500 mg PO TID [facility] Last Admin: 08/17/16 06:23 Dose: 500 mg Aspirin (Asa -) 81 mg PO BID [facility] Last Admin: 08/17/16 09:20 Dose: 81 mg Collagenase (Santyl -) 1 applic TP DAILY [facility] Last Admin: 08/17/16 09:21 Dose: 1 applic Cyanocobalamin (Vitamin B12 -) 1,000 mcg PO DAILY [facility] Last Admin: 08/17/16 09:20 Dose: 1,000 mcg Ferrous Sulfate (Feosol -) 325 mg PO TID [facility] Last Admin: 08/17/16 06:23 Dose: 325 mg Folic Acid (Folic Acid -) 1 mg PO DAILY [facility] Last Admin: 08/17/16 09:20 Dose: 1 mg Guaifenesin (Robitussin -) 10 ml PO Q8H PRN Potassium Chloride 40 meq/ (Dextrose) 1,020 mls @ 60 mls/hr IVPB Q17H [facility] Last Admin: 08/17/16 04:36 Dose: Not Given Metronidazole (Flagyl 500mg Premixed Ivpb -) 100 mls @ 100 mls/hr IVPB Q8H-IV [facility] Last Admin: 08/17/16 09:20 Dose: 100 mls/hr Insulin Aspart (Novolog Vial Sliding Scale -) 1 vial SQ ACHS [facility] PRN Reason: Protocol Last Admin: 08/17/16 06:22 Dose: Not Given Levothyroxine Sodium (Synthroid -) 25 mcg PO DAILY@0700 [facility] Last Admin: 08/17/16 06:23 Dose: 25 mcg Multivitamins/Minerals/Vitamin C (Tab-A-Vit -) 1 tab PO DAILY [facility] Last Admin: 08/17/16 09:20 Dose: 1 tab Nystatin (Nystop Powder -) 1 applic TP DAILY [facility] Last Admin: 08/17/16 09:21 Dose: 1 applic Nystatin (Nystatin Oral Suspension -) 500,000 units PO Q6HPO [facility] Last Admin: 08/17/16 06:23 Dose: 500,000 units Ondansetron HCl (Zofran Injection) 4 mg IVPB Q6H PRN PRN Reason: NAUSEA Potassium Chloride (K-Dur -) 40 meq PO BID [facility] Last Admin: 08/17/16 09:20 Dose: 40 meq Potassium Phos/Sodium Phos (Phos-Nak Packet -) 1 packet PO BID [facility] Last Admin: 08/17/16 09:21 Dose: 1 packet Sodium Bicarbonate (Sodium Bicarbonate -) 650 mg PO BID [facility] Last Admin: 08/17/16 09:20 Dose: 650 mg Tamsulosin HCl (Flomax -) 0.4 mg PO DAILY@0830 [facility] Last Admin: 08/17/16 09:20 Dose: 0.4 mg Vancomycin HCl (Vancomycin Oral Solution) 125 mg PO Q6HPO [facility] Last Admin: 08/17/16 06:22 Dose: 125 ml Labs pending. Microbiology 08/16/16 10:32 Blood - Peripheral Venous Blood Culture - Preliminary Pending Organism 08/14/16 16:00 Sputum - Endotracheal Suction W/O Vent Gram Stain - Final 08/14/16 16:00 Sputum - Endotracheal Suction W/O Vent Sputum Culture - Final Escherichia Coli Esbl Rheumatology Nurse Proteus Mirabilis 08/16/16 10:30 Blood - Peripheral Venous Blood Culture - Preliminary NO GROWTH OBTAINED AFTER 24 HOURS, INCUBATION TO CONTINUE FOR 4 DAYS. A&P Hypernatremia In the setting of poor PO intake. Labs pending for today. Continue gentle hydration with D5W @ 50 ml/hr. Renal follow up appreciated Called his son and discussed in detail about the patient and overall prognosis. He agrees with palliative care consult. Code(s): E87.0 - HYPEROSMOLALITY AND HYPERNATREMIA Leukocytosis Labs pending. Slight improvement. Prelim Cultures positive. C. Diff antigen positive toxin negative with ongoing diarrhea. Chest x ray: atelectasis vs pneumonia Antibiotics as per ID C diff colitis Assessment/Plan: Improving. - C.Diff antigen positive with toxin negative with ongoing diarrhea. - ID follow up appreciated. Code(s): R19.7 - DIARRHEA, UNSPECIFIED Qualifiers: Diarrhea type: unspecified type Qualified Code(s): R19.7 - Diarrhea, unspecified Hypothermia Resolved. BP maintaining. Anemia Assessment/Plan: -chronic and stable Code(s): D64.9 - ANEMIA, UNSPECIFIED Qualifiers: Anemia type: other cause Other causes of anemia: other cause, not classified Qualified Code(s): D64.89 - Other specified anemias Chronic systolic CHF (congestive heart failure) Assessment/Plan: -not in exacerbation. - BNP- High. - Cardiology follow up appreciated. Code(s): I50.22 - CHRONIC SYSTOLIC (CONGESTIVE) HEART FAILURE CAD (coronary artery disease) -continue home regimen -cardiology following Code(s): I25.10 - ATHSCL HEART DISEASE OF [place] CORONARY ARTERY W/O ANG PCTRS HTN (hypertension) Assessment/Plan: Code(s): I10 - ESSENTIAL (PRIMARY) HYPERTENSION Blood pressure improved. Off BP meds. Bradycardia Cardiology follow up appreciated. Hypothyroidism Repeat TSH 2.19 Continue levothyroxine 25 mcg daily. Endocrine consult reviewed and appreciated. Hypokalemia Potassium repleted Depression/suicidal thoughts Cheerful. Psych consulted. Patient is full code. Palliative care consulted after discussing his condition with his son in detail. He is available today to discuss goals of care.
[2016-08-19 10:02] LABS: ALBUMIN 1.4 g/dl (3.4-5.0); ALK PHOS 98 U/L (45-117); ANION GAP 11 (8-16); BILIRUBIN,TOTAL 0.4 mg/dL (0.2-1.0); CALCIUM 8.5 mg/dL (8.5-10.1); CO2 17 mmol/L (21-32); COCKROFT - GAULT 73.87; CREATININE 0.8 mg/dL (0.7-1.3); GLUCOSE,RANDOM 97 mg/dL (74-106); PHOSPHOROUS 3.3 mg/dL (2.5-4.9); SGOT/AST 31 U/L (15-37); SGPT/ALT 26 U/L (12-78); TOT PROT 4.8 g/dl (6.4-8.2)
[2016-08-19] MEDS: TAMSULOSIN HCL 0.4 MG CAP.ER.24H (FP) PO SCH (10:19)
[2016-08-19] MEDS: POTASSIUM CHLORIDE TABS 20 MEQ TABLET.ER (FP) PO SCH ×2 (10:19→21:50)
[2016-08-19] MEDS: FOLIC ACID 1 MG TABLET (FP) PO SCH (10:19)
[2016-08-19] MEDS: SODIUM BICARBONATE 650 MG TABLET PO SCH ×2 (10:19→21:54)
[2016-08-19] MEDS: MULTIVITAMINS (DAILY MVI) TABLET (FP) PO SCH (10:19)
[2016-08-19] MEDS: CYANOCOBALAMIN 1,000 MCG TABLET (FP) PO SCH (10:19)
[2016-08-19] MEDS: ASPIRIN 81 MG CHEWABLE TABLETS PO SCH ×2 (10:20→21:46)
[2016-08-19] MEDS: NYSTATIN POWDER 100,000 UNITS/GM - 15 GM TOPICAL POWDER TP SCH (10:20)
[2016-08-19] MEDS: NAPH,MB-DB/K PH,MBDB POWDER PACKET PO SCH ×2 (10:20→21:50)
[2016-08-19] MEDS: COLLAGENASE CLOSTRIDIUM HIST. 30 GRAMS TUBE TP SCH (10:21)
[2016-08-19 11:51] LABS: ARTERIAL BLD GAS O2 SATURATION 86.4 % (90-98.9); ARTERIAL BLOOD GAS BASE EXCESS -15.8 meq/l (-2-2); ARTERIAL BLOOD GAS PO2 73.3 mmHg (68-100)
[2016-08-19 11:53] LABS: ALLENS TEST POSITIVE; ART PUNCT SITE LEFT RADIAL; LPM/O2% 100; PT. ON O2? YES; TYPE OF O2 NON REBREATHER
[2016-08-19] MEDS: VANCOMYCIN 1,250 MG in DEXTROSE 5%-WATER - 250 ML IVPB SCH (12:41)
[2016-08-19 13:58] VITALS: TEMP 95
[2016-08-19] MEDS ORDERED: DOPAMINE 400 MG/D5W - 250 ML IVPB SCH (14:00)
--- NOTE | 2016-08-19 15:01 | PN ---
Progress Note, Physician History of Present Illness: events noted patient more lethargic bp on the lower side on dopamine drip - Current Medication List Current Medications: Active Medications Acetaminophen (Tylenol -) 650 mg PO Q4H PRN PRN Reason: FEVER OR PAIN Ascorbic Acid (Vitamin C -) 500 mg PO TID [facility] Last Admin: 08/19/16 05:36 Dose: 500 mg Aspirin (Asa -) 81 mg PO BID [facility] Last Admin: 08/19/16 10:20 Dose: 81 mg Collagenase (Santyl -) 1 applic TP DAILY [facility] Last Admin: 08/19/16 10:21 Dose: 1 applic Cyanocobalamin (Vitamin B12 -) 1,000 mcg PO DAILY [facility] Last Admin: 08/19/16 10:19 Dose: 1,000 mcg Ferrous Sulfate (Feosol -) 325 mg PO TID [facility] Last Admin: 08/19/16 05:36 Dose: 325 mg Folic Acid (Folic Acid -) 1 mg PO DAILY [facility] Last Admin: 08/19/16 10:19 Dose: 1 mg Guaifenesin (Robitussin -) 10 ml PO Q8H PRN Potassium Chloride 40 meq/ (Dextrose) 1,020 mls @ 60 mls/hr IVPB Q17H [facility] Last Admin: 08/19/16 10:21 Dose: 60 mls/hr Metronidazole (Flagyl 500mg Premixed Ivpb -) 100 mls @ 100 mls/hr IVPB Q8H-IV [facility] Last Admin: 08/19/16 10:19 Dose: 100 mls/hr Vancomycin HCl 1,250 mg/ (Dextrose) 250 mls @ 166.667 mls/hr IVPB DAILY [facility] PRN Reason: Protocol Last Admin: 08/19/16 12:41 Dose: 166.667 mls/hr Meropenem 1 gm/ Dextrose 100 mls @ 100 mls/hr IVPB Q8H-IV [facility] PRN Reason: Protocol Last Admin: 08/19/16 11:07 Dose: 100 mls/hr Dopamine HCl/Dextrose (Dopamine 400 Mg/D5w -) 250 mls @ 13.523 mls/hr IVPB TITR [facility]; 5 MCG/KG/MIN PRN Reason: Protocol Insulin Aspart (Novolog Vial Sliding Scale -) 1 vial SQ ACHS [facility] PRN Reason: Protocol Last Admin: 08/19/16 06:48 Dose: Not Given Levothyroxine Sodium (Synthroid -) 25 mcg PO DAILY@0700 [facility] Last Admin: 08/19/16 06:50 Dose: 25 mcg Multivitamins/Minerals/Vitamin C (Tab-A-Vit -) 1 tab PO DAILY [facility] Last Admin: 08/19/16 10:19 Dose: 1 tab Nystatin (Nystop Powder -) 1 applic TP DAILY [facility] Last Admin: 08/19/16 10:20 Dose: 1 applic Nystatin (Nystatin Oral Suspension -) 500,000 units PO Q6HPO [facility] Last Admin: 08/19/16 05:36 Dose: 500,000 units Ondansetron HCl (Zofran Injection) 4 mg IVPB Q6H PRN PRN Reason: NAUSEA Potassium Chloride (K-Dur -) 40 meq PO BID [facility] Last Admin: 08/19/16 10:19 Dose: 40 meq Potassium Phos/Sodium Phos (Phos-Nak Packet -) 1 packet PO BID [facility] Last Admin: 08/19/16 10:20 Dose: 1 packet Sodium Bicarbonate (Sodium Bicarbonate -) 650 mg PO BID [facility] Last Admin: 08/19/16 10:19 Dose: 650 mg Tamsulosin HCl (Flomax -) 0.4 mg PO DAILY@0830 [facility] Last Admin: 08/19/16 10:19 Dose: 0.4 mg Vancomycin HCl (Vancomycin Oral Solution) 125 mg PO Q6HPO [facility] Last Admin: 08/19/16 05:35 Dose: 2.5 ml - Objective Vital Signs: Vital Signs Temperature 95 F L 08/19/16 09:00 Pulse Rate 64 08/19/16 09:00 Respiratory Rate 24 08/19/16 09:00 Blood Pressure 119/60 08/19/16 09:00 O2 Sat by Pulse Oximetry (%) 92 L 08/19/16 10:00 Constitutional: Yes: Calm, Other Cardiovascular: Yes: Regular Rate and Rhythm, Bradycardia Respiratory: Yes: Regular Gastrointestinal: Yes: Normal Bowel Sounds, Soft Musculoskeletal: Yes: WNL Extremities: Yes: WNL Neurological: Yes: Other Psychiatric: Yes: Other Labs: CBC, BMP 08/19/16 08:00 08/19/16 08:00 INR, PTT INR 1.17 (0.82-1.09) H 07/26/16 19:07 Assessment/Plan Problem List - Problems (1) Septic shock Code(s): A41.9 - SEPSIS, UNSPECIFIED ORGANISM R65.21 - SEVERE SEPSIS WITH SEPTIC SHOCK (2) HCAP (healthcare-associated pneumonia) Code(s): J18.9 - PNEUMONIA, UNSPECIFIED ORGANISM (3) UTI (urinary tract infection) Code(s): N39.0 - URINARY TRACT INFECTION, SITE NOT SPECIFIED (4) Diarrhea Code(s): R19.7 - DIARRHEA, UNSPECIFIED Qualifiers: Diarrhea type: unspecified type Qualified Code(s): R19.7 - Diarrhea, unspecified (5) Chest pain Code(s): R07.9 - CHEST PAIN, UNSPECIFIED (6) Anemia Code(s): D64.9 - ANEMIA, UNSPECIFIED Qualifiers: Anemia type: other cause Other causes of anemia: other cause, not classified Qualified Code(s): D64.89 - Other specified anemias (7) Chronic systolic CHF (congestive heart failure) Code(s): I50.22 - CHRONIC SYSTOLIC (CONGESTIVE) HEART FAILURE (8) CAD (coronary artery disease) Code(s): I25.10 - ATHSCL HEART DISEASE OF [place] CORONARY ARTERY W/O ANG PCTRS (9) Dehydration Code(s): E86.0 - DEHYDRATION (10) HTN (hypertension) Code(s): I10 - ESSENTIAL (PRIMARY) HYPERTENSION (11) Hypernatremia Code(s): E87.0 - HYPEROSMOLALITY AND HYPERNATREMIA 12 hypothermia 13 cdiff 14 dehydration 15 gm positive bacteremia esbl ecoli pneumonia patient critical with bacteremia being treated for the same c plan continue monitoring contiue close follow up will repeat blood cx tomorrow rest as per primary
[2016-08-19 17:18] VITALS: PULSE 56
[2016-08-19 17:57] VITALS: BP 44/30
--- NOTE | 2016-08-19 23:00 | PN ---
Progress Note (short form) - Note Progress Note: called by nurse to pronounce patient 80 year old Pablo Kumar admitted for septic shock secondary to HAP and UTI. Nurse called me to pronounce patient. Nurse states patient bp was dropping all day, on dopamine drip. No spontaneous movements were present. There was not response to verbal or tactile stimuli. Pupils were mid-dilated and fixed. No breath sounds were appreciated over either lung field. No carotid pulses were palpable. No heart sounds were auscultator over entire precordium. Patient pronounced at 23: 03 on 08/19/16. Family, and attending were notified. Patient was DNR/DNI. Not organ donor candidate. Problem List - Problems (1) C. difficile colitis Code(s): A04.7 - ENTEROCOLITIS DUE TO CLOSTRIDIUM DIFFICILE (2) Chest pain Code(s): R07.9 - CHEST PAIN, UNSPECIFIED (3) Chronic systolic CHF (congestive heart failure) Code(s): I50.22 - CHRONIC SYSTOLIC (CONGESTIVE) HEART FAILURE (4) HCAP (healthcare-associated pneumonia) Code(s): J18.9 - PNEUMONIA, UNSPECIFIED ORGANISM (5) UTI (urinary tract infection) Code(s): N39.0 - URINARY TRACT INFECTION, SITE NOT SPECIFIED (6) CAD (coronary artery disease) Code(s): I25.10 - ATHSCL HEART DISEASE OF [place] CORONARY ARTERY W/O ANG PCTRS (7) Diabetes mellitus type 2 in nonobese Code(s): E11.9 - TYPE 2 DIABETES MELLITUS WITHOUT COMPLICATIONS
== END 2016-08-19 23:05 | disposition expired | DRG 871 ==
LOC: JER 17:04 → JERBED 22:20 → J5S 07-27 01:26 → JICU 07-27 07:27 → J4W 07-27 18:48 → JICU 08-02 13:17 → J4W 08-10 19:50 → J8W 08-12 16:34 → J4W 08-19 13:02
PROVIDERS: ADMIT Internal Medicine; ATTEND Internal Medicine
DX: A41.9 Sepsis, unspecified organism (principal); R65.21 Severe sepsis with septic shock; J18.9 Pneumonia, unspecified organism; N39.0 Urinary tract infection, site not specified; E87.0 Hyperosmolality and hypernatremia; I50.22 Chronic systolic (congestive) heart failure; R64 Cachexia; A04.7 Enterocolitis due to Clostridium difficile; I47.2 Ventricular tachycardia; E87.2 Acidosis; R19.7 Diarrhea, unspecified; R07.9 Chest pain, unspecified; D64.9 Anemia, unspecified; I25.10 Atherosclerotic heart disease of native coronary artery without angina pectoris; E86.0 Dehydration; I11.0 Hypertensive heart disease with heart failure; K21.9 Gastro-esophageal reflux disease without esophagitis; E03.9 Hypothyroidism, unspecified; E78.5 Hyperlipidemia, unspecified; Z68.20 Body mass index [BMI] 20.0-20.9, adult; D72.829 Elevated white blood cell count, unspecified; R00.1 Bradycardia, unspecified; E87.6 Hypokalemia; F32.9 Major depressive disorder, single episode, unspecified; E83.39 Other disorders of phosphorus metabolism; E83.42 Hypomagnesemia; E11.9 Type 2 diabetes mellitus without complications
CPT/HCPCS: 36415; 36600; 71010-TC; 74230-TC; 80048; 80053; 81003; 81015; 82436; 82533; 82550; 82803; 83605; 83690; 83735; 83880; 83930; 84100; 84133; 84300; 84439; 84443; 84481; 84484; 85025; 85027; 85610; 86850; 86900; 86901; 87040; 87070; 87086; 87186; 87205; 87324; 87449; 87899; 92611-GN; 93005; 93010; 93306-TC; 97162-PG; 99285-25; J0833